=== PATIENT | female | born 1955 | race Hispanic/Latino ===

== ENCOUNTER 2017-11-10 10:29 | Observation (INO) | payer MEDICARE ==
[~2017-11-10] VITALS: Ht 157.5 cm; Wt 105.2 kg
[~2017-11-10 10:29] MED LIST: ALDACTONE100 MG PO; AMLODIPINE BESY10 MG PO; AMOX TR-K CLV1 EAC2 PO; CLARITIN PO; DEXILANT30 MG PO; FLONASE16 GM; GLIMEPIRIDE2 MG PO; HYDROCODONE-CH473 ML PO; INVEGA3 MG PO; LACTULOSE10 GM/15 M PO; LACTULOSE20 GM/30 M PO; LEVAQUIN500 MG PO; LEVEMIR 3M100 UNITS/; LEVOTHYROXINE137 MCG PO; LEVOTHYROXINE150 MCG PO; MUCINEX PO; NORCO 5-325 TA1 EACH PO; OMEPRAZOLE40 MG; OMEPRAZOLE40 MG PO; POLYETHYLENE GL17 GM PO; PROPRANOLOL HCL10 MG PO; PROVENTIL HFA6.7 GM; PROVENTIL HFA6.7 GM PO; SERTRALINE HCL50 MG PO; SPIRONOLACTONE100 MG PO; SYNTHROID125 MCG PO; TESSALON PERLE100 MG PO; XIFAXAN550 MG PO
[2017-11-10 11:28] LABS: BASOPHILS % 0.4 % (0.0-1.0); EOSINOPHILS # (AUTO) 0.5 (0.0-0.4); HEMATOCRIT 35.9 % (34.2-44.1); HEMOGLOBIN 11.9 g/dL (12.0-16.0); LYMPHOCYTES # (AUTO) 1.6 (1.0-3.2); LYMPHOCYTES % 34.8 % (18.0-39.1); MEAN CORPUSCULAR HEMOGLOBIN 33.2 pg (28-32); MEAN CORPUSCULAR HGB CONC 33.1 g/dL (31-35); MEAN CORPUSCULAR VOLUME 100.3 fL (81-99); MONOCYTES # (AUTO) 0.6 (0.2-0.8); MONOCYTES % 12.9 % (4.4-11.3); NEUTROPHILS # (AUTO) 1.9 (2.1-6.9); NEUTROPHILS % 41.7 % (38.7-80.0); PLATELET COUNT 65 x10e3/uL (140-360); RED BLOOD COUNT 3.58 x10e6/uL (3.6-5.1); RED CELL DISTRIBUTION WIDTH 15.9 % (11.7-14.4)
[2017-11-10 11:32] LABS: COLOR,URINE YELLOW (YELLOW); LEUKOCYTE ESTERASE ,URINE NEGATIVE (NEGATIVE); NITRITE,URINE NEGATIVE (NEGATIVE)
[2017-11-10 11:33] LABS: BILIRUBIN,URINE NEGATIVE (NEGATIVE); KETONES,URINE NEGATIVE (NEGATIVE); PROTEIN,URINE DIPSTICK NEGATIVE (NEGATIVE); URINE UROBILINOGEN 0.2 mg/dL (0.2 - 1)
[2017-11-10 11:35] LABS: CLARITY,URINE CLEAR (CLEAR)
--- NOTE | 2017-11-10 11:44 | Diagnostic Imaging Report ---
PROCEDURE: A single AP view of the chest. COMPARISON: Patients [facility], , CHEST SINGLE (PORTABLE), 01/10/2017, 12:33. INDICATIONS: SHORTNESS OF BREATH FINDINGS: Lines/tubes: None. Lungs: The lungs are well inflated and clear. There is no evidence of pneumonia or pulmonary edema. Pleura: There is no pleural effusion or pneumothorax. Heart and mediastinum: The heart and the mediastinum are unremarkable. Bones: No acute bony abnormality. IMPRESSION: 1. No acute cardiopulmonary disease. Kapil Pike M.D. Dictated by: Kapil Pike M.D. on 11/10/2017 at 11:47 Electronically approved by: Kapil Pike M.D. on 11/10/2017 at 11:47
[2017-11-10 11:45] LABS: BACTERIA,URINE RARE /HPF; EPITHELIAL CELLS,URINE MODERATE /LPF; WBC,URINE (MAN) 0-5 /HPF (0-5)
[2017-11-10 11:58] LABS: CREATINE KINASE MB 1.7 ng/mL (0-5.0)
[2017-11-10 11:59] LABS: ALBUMIN 2.5 g/dL (3.5-5.0); ALBUMIN/GLOBULIN RATIO 0.6 (0.8-2.0); ANION GAP 9.6 mmol/L (8-16); CALCIUM 8.8 mg/dL (8.4-10.2); POTASSIUM 4.6 mmol/L (3.5-5.1)
[2017-11-10] MEDS ORDERED: ONDANSETRON HCL INJ 2 MG/ML VIAL IV PRN (14:15)
[2017-11-10] MEDS ORDERED: SODIUM CHLORIDE 0.9% 1000ML 1,000 ML IV SCH (14:15)
[2017-11-10] MEDS ORDERED: DEXTROSE 50% SYRINGE 50 ML IV PRN (14:45)
[2017-11-10] MEDS ORDERED: XIFAXAN PO (14:59)
[2017-11-10 15:50] VITALS: BP 156/65
[2017-11-10 16:20] VITALS: BP 156/65
[2017-11-10] MEDS: PROPRANOLOL HCL 10 MG TAB PO SCH (16:48)
[2017-11-10] MEDS: LACTULOSE SYRUP 20 GM/30 ML UDC PO SCH (16:48)
[2017-11-10] MEDS: RIFAXIMIN 550 MG TABLET PO SCH (16:48)
[2017-11-10] MEDS: FUROSEMIDE 40 MG TAB PO SCH (16:48)
[2017-11-10] MEDS: INSULIN REGULAR, HUMAN 100 UNIT/1 ML 3ML VIAL SQ SCH (16:48)
[2017-11-10] MEDS ORDERED: PROPRANOLOL HCL 40 MG TAB PO SCH (17:00)
[2017-11-10 20:00] VITALS: BP 146/66
[2017-11-11] MEDS: LACTULOSE SYRUP 20 GM/30 ML UDC PO SCH ×3 (01:22→12:01)
[2017-11-11] MEDS: INSULIN REGULAR, HUMAN 100 UNIT/1 ML 3ML VIAL SQ SCH ×3 (04:07→12:05)
[2017-11-11 04:59] VITALS: BP 129/60
[2017-11-11] MEDS ORDERED: LEVOTHYROXINE SODIUM 125 MCG TAB PO SCH ×2 (06:00→09:00)
[2017-11-11 06:10] LABS: BASOPHILS % 0.4 % (0.0-1.0); EOSINOPHILS # (AUTO) 0.2 (0.0-0.4); EOSINOPHILS % 3.5 % (0.0-6.0); HEMATOCRIT 38.1 % (34.2-44.1); HEMOGLOBIN 12.8 g/dL (12.0-16.0); LYMPHOCYTES # (AUTO) 1.2 (1.0-3.2); LYMPHOCYTES % 24.8 % (18.0-39.1); MEAN CORPUSCULAR HEMOGLOBIN 33.6 pg (28-32); MEAN CORPUSCULAR HGB CONC 33.6 g/dL (31-35); MONOCYTES # (AUTO) 0.3 (0.2-0.8); MONOCYTES % 6.9 % (4.4-11.3); NEUTROPHILS # (AUTO) 3.1 (2.1-6.9); PLATELET COUNT 71 x10e3/uL (140-360); RED BLOOD COUNT 3.81 x10e6/uL (3.6-5.1); RED CELL DISTRIBUTION WIDTH 15.3 % (11.7-14.4)
[2017-11-11 06:31] LABS: INR 1.79; PROTHROMBIN TIME 19.5 seconds (11.9-14.5)
[2017-11-11 06:35] LABS: CALCIUM 9.2 mg/dL (8.4-10.2)
[2017-11-11 08:04] VITALS: BP 152/78
[2017-11-11] MEDS: PROPRANOLOL HCL 10 MG TAB PO SCH (08:37)
[2017-11-11] MEDS: FUROSEMIDE 40 MG TAB PO SCH (08:37)
[2017-11-11] MEDS: RIFAXIMIN 550 MG TABLET PO SCH (08:37)
[2017-11-11] MEDS ORDERED: PANTOPRAZOLE SOD 40 MG TABEC PO SCH (09:00)
[2017-11-11] MEDS ORDERED: SPIRONOLACTONE 25 MG TAB PO SCH (09:00)
[2017-11-11] MEDS ORDERED: METFORMIN HCL500 MG PO (13:11)
[2017-11-11] MEDS ORDERED: LASIX40 MG PO (13:12)
[2017-11-11] MEDS ORDERED: XIFAXAN550 MG PO (13:12)
--- NOTE | 2017-11-11 13:37 | Discharge Summary ---
PRIMARY CARE DOCTOR: Dr. Maya Dorman with [facility]. FINAL DIAGNOSIS: Hepatic encephalopathy. SECONDARY DIAGNOSES 1. Hepatitis C cirrhosis. 2. Uncontrolled diabetes. 3. Hypothyroidism. 4. 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 BOX OFFICE MANAGER: None. PROCEDURES/STUDIES PERFORMED: None. HISTORY: Per H and P. HOSPITAL COURSE: The patient was admitted. She has not had any bowel movement for a few days. We increased the lactulose, and she had a bowel movement. Her ammonia level came down. Clinically, she is completely alert and oriented. The patient was instructed, along with her , that she has to have 2 soft bowel movements a day by increasing or decreasing lactulose frequency. As far as her swelling, I have added Lasix to her Aldactone. There is a questionable renal insufficiency history due to Lasix. I will have her follow up with her PCP in 1 week. As far as her diabetes, given her morbid obesity, I will try to use metformin instead of Amaryl. Her TSH is normal. The patient was seen and examined today. CONDITION ON DISCHARGE: Stable. DISCHARGE MEDICATIONS: Please see medication reconciliation form. STORMY RYAN M.D. Job#: [id number] cc:MAYA DORMAN MD
== END 2017-11-11 13:30 | disposition home or self-care (01) ==
LOC: ER 10:29 → INTOOBSV 14:15 → ERHOLD 14:15 → MED/SURG 15:25
PROVIDERS: ADMIT Internal Medicine; ATTEND Internal Medicine
DX: K72.90 Hepatic failure, unspecified without coma (principal); D69.6 Thrombocytopenia, unspecified; E11.65 Type 2 diabetes mellitus with hyperglycemia; B19.20 Unspecified viral hepatitis C without hepatic coma; E03.9 Hypothyroidism, unspecified; E66.01 Morbid (severe) obesity due to excess calories; Z68.41 Body mass index [BMI] 40.0-44.9, adult
CPT/HCPCS: 36415 ×2; 71045; 80048; 80053; 81001; 82140 ×2; 82550; 82553; 82948; 83690; 84443; 84484; 85025 ×2; 85610; 93005; 99284; G0378 ×2; J7030; S0164

== ENCOUNTER 2017-11-29 03:11 | Inpatient (IN) | payer MEDICARE ==
[~2017-11-29] VITALS: Ht 152.4 cm; Wt 104.9 kg
[2017-11-29] MEDS: LACTULOSE SYRUP 20 GM/30 ML UDC PO SCH ×5 (01:45→22:20)
[~2017-11-29 03:11] MED LIST changes: +LASIX40 MG PO; +METFORMIN HCL500 MG PO; +XIFAXAN PO
[2017-11-29] MEDS ORDERED: SODIUM CHLORIDE 0.9% 1000ML 1,000 ML IV ONE (04:00)
[2017-11-29 04:30] LABS: BASOPHILS # (AUTO) 0.1 (0.0-0.1); BASOPHILS % 0.8 % (0.0-1.0); EOSINOPHILS # (AUTO) 0.3 (0.0-0.4); EOSINOPHILS % 5.2 % (0.0-6.0); HEMATOCRIT 39.1 % (34.2-44.1); HEMOGLOBIN 13.2 g/dL (12.0-16.0); LYMPHOCYTES # (AUTO) 1.8 (1.0-3.2); LYMPHOCYTES % 28.8 % (18.0-39.1); MEAN CORPUSCULAR HEMOGLOBIN 32.9 pg (28-32); MEAN CORPUSCULAR HGB CONC 33.8 g/dL (31-35); MEAN CORPUSCULAR VOLUME 97.5 fL (81-99); MONOCYTES # (AUTO) 0.7 (0.2-0.8); MONOCYTES % 10.3 % (4.4-11.3); NEUTROPHILS # (AUTO) 3.5 (2.1-6.9); NEUTROPHILS % 54.7 % (38.7-80.0); PLATELET COUNT 100 x10e3/uL (140-360); RED BLOOD COUNT 4.01 x10e6/uL (3.6-5.1); RED CELL DISTRIBUTION WIDTH 14.6 % (11.7-14.4)
[2017-11-29 04:47] LABS: ALBUMIN 2.8 g/dL (3.5-5.0); ALBUMIN/GLOBULIN RATIO 0.6 (0.8-2.0); ANION GAP 13.6 mmol/L (8-16); CALCIUM 9.8 mg/dL (8.4-10.2); CREATININE, SERUM 1.47 mg/dL (0.57-1.11); POTASSIUM 4.6 mmol/L (3.5-5.1)
[2017-11-29 04:49] LABS: BILIRUBIN,URINE 1+ (NEGATIVE); CLARITY,URINE SL CLOUDY (CLEAR); COLOR,URINE YELLOW (YELLOW); KETONES,URINE NEGATIVE (NEGATIVE); NITRITE,URINE NEGATIVE (NEGATIVE); PROTEIN,URINE DIPSTICK NEGATIVE (NEGATIVE); URINE UROBILINOGEN 0.2 mg/dL (0.2 - 1)
[2017-11-29 04:50] LABS: LEUKOCYTE ESTERASE ,URINE TRACE (NEGATIVE)
[2017-11-29 04:51] LABS: BACTERIA,URINE MODERATE /HPF; CALCIUM OXALATE CRYSTALS,UR FEW (FEW); EPITHELIAL CELLS,URINE MANY /LPF; RBC,URINE 0-5 /HPF (0-5)
--- NOTE | 2017-11-29 05:21 | Diagnostic Imaging Report ---
EXAM: CHEST SINGLE (PORTABLE), AP 1 view INDICATION: History of asthma, cough COMPARISON: AP view of the chest November 10, 2017 FINDINGS: LINES/TUBES: None LUNGS: No consolidations or edema. PLEURA: No effusions or pneumothorax. HEART AND MEDIASTINUM: Normal size and contour. BONES AND SOFT TISSUES: No acute findings. IMPRESSION: No acute thoracic abnormality. Signed by: Dr. Yelena Arelalno M.D. on 11/29/2017 5:17 AM
[2017-11-29] MEDS ORDERED: ONDANSETRON HCL INJ 2 MG/ML VIAL IV PRN (05:45)
[2017-11-29] MEDS ORDERED: ALBUTEROL/IPRATROPIUM 3 ML NEB NEB ONE (05:45)
[2017-11-29] MEDS ORDERED: DEXTROSE 50% SYRINGE 50 ML IV PRN (05:45)
[2017-11-29] MEDS: INSULIN REGULAR, HUMAN 100 UNIT/1 ML 3ML VIAL SQ SCH ×4 (07:30→22:21)
[2017-11-29 08:11] VITALS: BP 147/64
[2017-11-29 08:15] VITALS: BP 138/60
[2017-11-29] MEDS: ALBUTEROL/IPRATROPIUM 3 ML NEB NEB PRN ×2 (09:22→19:40)
[2017-11-29 09:23] VITALS: BP 147/64
[2017-11-29] MEDS: SODIUM CHLORIDE 0.9% 1000ML 1,000 ML IV SCH ×2 (09:55→18:26)
[2017-11-29] MEDS ORDERED: ZINC SULFATE220 MG PO (10:13)
[2017-11-29] MEDS ORDERED: MAGNESIUM OXID400 MG PO (10:13)
[2017-11-29] MEDS ORDERED: VITAMIN D1000 UNI1 PO (10:16)
[2017-11-29] MEDS ORDERED: LANTUS 3ML100 UNITS/ SQ (11:44)
[2017-11-29] MEDS ORDERED: NOVOLOG100 UNIT/1 SQ (11:44)
[2017-11-29 13:14] VITALS: BP 112/53
[2017-11-29] MEDS ORDERED: DIATRIZOATE MEGL/DIATRIZOA SOD 30 ML BTL PO ONE (14:07)
[2017-11-29 16:29] VITALS: BP 94/51
[2017-11-29] MEDS: RIFAXIMIN 550 MG TABLET PO SCH (17:00)
--- NOTE | 2017-11-29 19:26 | Diagnostic Imaging Report ---
EXAM: CT ABDOMEN AND PELVIS without IV CONTRAST INDICATION: Abdominal pain, cirrhosis COMPARISON: CT of the abdomen and pelvis March 03, 2017 TECHNIQUE: The abdomen and pelvis were scanned using a multidetector helical scanner. Coronal and sagittal reformations were obtained. Routine protocol performed. IV Contrast: None Oral Contrast: Gastrografin CTDIvol has been reviewed. It is below the limits set by the Radiation Protocol Committee (RPC). FINDINGS: LOWER THORAX: No consolidations LIVER: No masses. Nodular liver contour. BILIARY: Cholecystectomy. No abnormal ductal dilation. SPLEEN: The spleen is at the upper limits of normal in size. PANCREAS: No masses ADRENALS: No nodules RIGHT KIDNEY: No nephroureterolithiasis or hydronephrosis. LEFT KIDNEY: Punctate nonobstructing stone in the interpolar region of the left kidney. GI TRACT: No wall thickening or obstruction. VESSELS: Mild atherosclerotic changes of the abdominal aorta without aneurysm. Recanalization of the periumbilical vein and splenic varices. PERITONEUM/RETROPERITONEUM: No free air or fluid LYMPH NODES: No lymphadenopathy REPRODUCTIVE ORGANS: Normal BLADDER: Normal SOFT TISSUES: Normal BONES: No suspicious bone lesions. IMPRESSION: Cirrhosis with evidence of portal hypertension. No abdominal ascites. No significant interval change from prior exam. Signed by: Dr. Yelena Arellano M.D. on 11/29/2017 7:23 PM
[2017-11-29 21:00] VITALS: BP 109/50
[2017-11-30] VITALS (8 sets, daily range): BP systolic 99–123; BP diastolic 52–71
[2017-11-30] MEDS: LACTULOSE SYRUP 20 GM/30 ML UDC PO SCH ×6 (01:45→21:22)
[2017-11-30 05:49] LABS: BASOPHILS % 0.5 % (0.0-1.0); EOSINOPHILS # (AUTO) 0.4 (0.0-0.4); HEMATOCRIT 33.4 % (34.2-44.1); HEMOGLOBIN 11.1 g/dL (12.0-16.0); LYMPHOCYTES # (AUTO) 1.7 (1.0-3.2); LYMPHOCYTES % 38.9 % (18.0-39.1); MEAN CORPUSCULAR HEMOGLOBIN 33.1 pg (28-32); MEAN CORPUSCULAR HGB CONC 33.2 g/dL (31-35); MEAN CORPUSCULAR VOLUME 99.7 fL (81-99); MONOCYTES # (AUTO) 0.6 (0.2-0.8); MONOCYTES % 13.1 % (4.4-11.3); NEUTROPHILS # (AUTO) 1.7 (2.1-6.9); NEUTROPHILS % 38.3 % (38.7-80.0); PLATELET COUNT 62 x10e3/uL (140-360); RED BLOOD COUNT 3.35 x10e6/uL (3.6-5.1); RED CELL DISTRIBUTION WIDTH 14.5 % (11.7-14.4)
[2017-11-30] MEDS: LEVOTHYROXINE SODIUM 125 MCG TAB PO SCH (05:57)
[2017-11-30 06:18] LABS: ALBUMIN 2.3 g/dL (3.5-5.0); ALBUMIN/GLOBULIN RATIO 0.7 (0.8-2.0); ANION GAP 9.2 mmol/L (8-16); CALCIUM 9.1 mg/dL (8.4-10.2); CREATININE, SERUM 1.24 mg/dL (0.57-1.11); POTASSIUM 4.2 mmol/L (3.5-5.1)
[2017-11-30] MEDS: INSULIN REGULAR, HUMAN 100 UNIT/1 ML 3ML VIAL SQ SCH ×4 (07:30→20:45)
[2017-11-30] MEDS: RIFAXIMIN 550 MG TABLET PO SCH ×2 (08:31→17:37)
[2017-11-30] MEDS: PANTOPRAZOLE SOD 40 MG TABEC PO SCH (08:31)
[2017-11-30] MEDS: ALBUTEROL/IPRATROPIUM 3 ML NEB NEB PRN (20:20)
[2017-12-01] MEDS: ALBUTEROL/IPRATROPIUM 3 ML NEB NEB PRN ×2 (00:45→07:12)
[2017-12-01] MEDS: LACTULOSE SYRUP 20 GM/30 ML UDC PO SCH ×3 (02:25→09:33)
[2017-12-01 04:00] VITALS: BP 100/54
[2017-12-01 05:16] LABS: BASOPHILS % 0.4 % (0.0-1.0); EOSINOPHILS # (AUTO) 0.3 (0.0-0.4); EOSINOPHILS % 6.9 % (0.0-6.0); HEMATOCRIT 35.6 % (34.2-44.1); HEMOGLOBIN 11.7 g/dL (12.0-16.0); LYMPHOCYTES # (AUTO) 1.7 (1.0-3.2); LYMPHOCYTES % 36.1 % (18.0-39.1); MEAN CORPUSCULAR HEMOGLOBIN 33.3 pg (28-32); MEAN CORPUSCULAR HGB CONC 32.9 g/dL (31-35); MEAN CORPUSCULAR VOLUME 101.4 fL (81-99); MONOCYTES # (AUTO) 0.5 (0.2-0.8); MONOCYTES % 10.4 % (4.4-11.3); NEUTROPHILS # (AUTO) 2.1 (2.1-6.9); PLATELET COUNT 65 x10e3/uL (140-360); RED BLOOD COUNT 3.51 x10e6/uL (3.6-5.1); RED CELL DISTRIBUTION WIDTH 14.6 % (11.7-14.4)
[2017-12-01] MEDS: LEVOTHYROXINE SODIUM 125 MCG TAB PO SCH (05:22)
[2017-12-01 05:50] LABS: ALBUMIN 2.5 g/dL (3.5-5.0); ANION GAP 7.9 mmol/L (8-16); BILIRUBIN,DIRECT 0.9 mg/dL (0.0-0.5); CALCIUM 9.4 mg/dL (8.4-10.2); CREATININE, SERUM 1.27 mg/dL (0.57-1.11); POTASSIUM 3.9 mmol/L (3.5-5.1)
[2017-12-01] MEDS: PANTOPRAZOLE SOD 40 MG TABEC PO SCH (07:30)
[2017-12-01] MEDS: INSULIN REGULAR, HUMAN 100 UNIT/1 ML 3ML VIAL SQ SCH ×2 (07:30→11:30)
[2017-12-01 08:00] VITALS: BP 100/54
[2017-12-01] MEDS: RIFAXIMIN 550 MG TABLET PO SCH (09:00)
[2017-12-01 09:38] VITALS: BP 113/56
[2017-12-01] MEDS ORDERED: VENTOLIN HFA18 GM INH (11:06)
[2017-12-01 12:48] VITALS: BP 125/77
--- NOTE | 2017-12-01 16:12 | Discharge Summary ---
PRIMARY CARE DOCTOR: Maya Dorman MD, with [facility]. FINAL DIAGNOSIS: Hepatic encephalopathy. SECONDARY DIAGNOSES 1. Mild acute kidney injury, resolving. 2. Cirrhosis with coagulopathy, stable. 3. Hepatitis C. 4. Diabetes. 5. Asthma. 6. Hypothyroidism. 7. Morbid obesity. HAND CROCHETER: None. PROCEDURES/STUDIES PERFORMED: CT of the abdomen and pelvis was benign. HISTORY: Per H and P. HOSPITAL COURSE: The patient was admitted. It is unclear at this time why her ammonia level went up to 283 despite the fact that she was already taking lactulose and rifaximin. Either way, the patient was put on lactulose every 4 hours. On the day of discharge, her ammonia level was normal now. The patient also has some mild acute kidney injury due to diarrhea/dehydration. The patient was given a little IV fluids, which helped. The patient was complaining of generalized abdominal discomfort. Abdominal CT was done, which was unremarkable. It also did not show any ascites. I have instructed the patient and her to talk to her primary care doctor in terms of getting financial assistance for rifaximin. The patient was seen and examined today. CONDITION ON DISCHARGE: Stable. DISCHARGE MEDICATIONS: Please see medication reconciliation form. STORMY RYAN M.D. Job#: [id number] cc:MAYA DORMAN MD
== END 2017-12-01 12:56 | disposition home or self-care (01) | DRG 433 ==
LOC: ER 03:11 → ERHOLD 05:44 → MED/SURG2 06:49
PROVIDERS: ADMIT Internal Medicine; ATTEND Internal Medicine
DX: K74.60 Unspecified cirrhosis of liver (principal); N17.9 Acute kidney failure, unspecified; D68.4 Acquired coagulation factor deficiency; Z68.42 Body mass index [BMI] 45.0-49.9, adult; B19.20 Unspecified viral hepatitis C without hepatic coma; E11.65 Type 2 diabetes mellitus with hyperglycemia; E03.9 Hypothyroidism, unspecified; J45.909 Unspecified asthma, uncomplicated; E86.0 Dehydration; R19.7 Diarrhea, unspecified; E66.01 Morbid (severe) obesity due to excess calories; Z86.73 Personal history of transient ischemic attack (TIA), and cerebral infarction without residual deficits; I10 Essential (primary) hypertension; Z79.84 Long term (current) use of oral hypoglycemic drugs
CPT/HCPCS: 36415; 71045; 74176; 80048; 80053; 80076; 81001; 82140; 82948; 85025; 93005; 94640; 96361; 99284; J7030

== ENCOUNTER 2018-07-10 11:21 | Emergency (ER) | payer MEDICARE ==
[~2018-07-10] VITALS: Ht 154.9 cm; Wt 63.5 kg
[~2018-07-10 11:21] MED LIST changes: +LANTUS 3ML100 UNITS/ SQ; +MAGNESIUM OXID400 MG PO; +NOVOLOG100 UNIT/1 SQ; +VENTOLIN HFA18 GM INH; +VITAMIN D1000 UNI1 PO; +ZINC SULFATE220 MG PO
--- OUTSIDE RECORDS SUMMARY | 2018-07-10 11:24 | XMS REPORT | Clinical Summary ---
Author Author [facility]AN[facility]at[facility] Address Unknown Phone Unavailable Care Team Providers Care Agricultural Research Engineer Name Role Phone Andreas Rooney MD PCP Allergies No Known Allergies Medications End Date Status Medication Sig Dispensed Refills Start Date Active spironolactone Take 50 mg by 0 (ALDACTONE) 100 MG tablet mouth daily . 6 Active glimepiride (AMARYL) 1 MG 2 mg every 0 tablet morning 7 before breakfast . Active lactulose (CHRONULAC) 10 Take 20 g by 0 gram/15 mL solution mouth 3 7 (three) times daily . Active levothyroxine (SYNTHROID, Take 125 mcg 0 LEVOTHROID) 125 MCG by mouth. 6 tablet Active ALBUTEROL SULFATE Inhale 2 0 (PROVENTIL HFA INHL) puffs by mouth via inhaler 2 (two) times daily as needed. Active omeprazole (PRILOSEC) 40 Take 40 mg by 0 MG capsule mouth daily. Active polyethylene glycol Take 17 g by 0 (GLYCOLAX) 17 gram packet mouth daily. Active amLODIPine (NORVASC) 10 Take 10 mg by 0 MG tablet mouth daily. Active zinc gluconate 50 mg Take 50 mg by 0 tablet mouth. Active POTASSIUM CHLORIDE ORAL Take by 0 mouth. 08/20/2017 propranolol (INDERAL) 10 Take 1 tablet 60 tablet 11 MG tablet (10 mg total) 7 by mouth 2 (two) times daily. 04/02/2018 Discontinued ondansetron (ZOFRAN) 8 MG Take by mouth 0 tablet every 8 (eight) hours as needed for Nausea. Active Problems Problem Noted Date Pre-transplant evaluation for liver transplant 04/30/2018 Last Assessment & Plan: She is an acceptable candidate for liver transplant pending further imaging/testing and official review at [facility]. Chronic hepatitis C without hepatic coma 10/27/2017 Cirrhosis of liver with ascites, unspecified hepatic cirrhosis type 10/27/2017 Last Assessment & Plan: Cirrhosis secondary to Hep C. Preoperative cardiovascular examination 04/04/2017 Ascites 07/25/2016 Overview: Controlled with spironolactone 100 mg daily. Not requiring taps Hepatic encephalopathy 07/25/2016 Overview: L ast Assessment & Plan: She takes lactulose TID, not currently encephalopathic Esophageal varices in cirrhosis 07/25/2016 Last Assessment & Plan: Has had EGD with varices seen, no banding done at the time. Being referred to GI for repeat EGD for surveillance Morbidly obese 07/25/2016 Last Assessment & Plan: BMI is 44. She will meet with our transplant assurance associate. Encourage decreased oral intake and exercise as tolerated. Cirrhosis 06/17/2016 Last Assessment & Plan: Meld 17 with portal HTN and ascites, candidate for liver transplant listing Portal hypertension 06/17/2016 Last Assessment & Plan: Portal hypertension with evidence by encephalopathy, varices, and ascites. HCC surveillance 06/17/2016 Screening for immunity 06/17/2016 Chronic portal vein thrombosis 06/17/2016 Metabolic syndrome 06/17/2016 Encounters Care Team Description Date Type Specialty Alyson Wilson Appointment (LVM asking pt to return my call.) 06/30/2018 Telephone Transplant Hepatology Umu Haas, IZZY Completion of transplant evaluation 06/22/2018 Telephone Transplant Hepatology Pradeep Knight MD Provider, [facility] Registry Generic 05/01/2018 UNOS Charge Transplant Hepatology Visit Pre-transplant evaluation for liver transplant 04/30/2018 Office Visit Lab Polo Gabriel MD Goss, John Alan, MD Portal hypertension; Pre-transplant evaluation for liver transplant; Morbidly obese (HCC); Cirrhosis of liver with ascites, unspecified hepatic cirrhosis type (HCC) 04/30/2018 Follow-Up Transplant Hepatology Polo Gabriel MD Springer, Laura L, LCSW 04/30/2018 Social Work Transplant Hepatology Polo Gabriel MD Cook, Amy 04/30/2018 Evaluation Transplant Hepatology Nikki Chavez 04/30/2018 Documentation Transplant Hepatology Linda Ching RN 04/30/2018 Documentation Transplant Hepatology Mando Sampson Walter 04/30/2018 Documentation Transplant Hepatology Alyson Wilson Liver Transplant Pre-evaluation (Appt confirmed.) 04/29/2018 Telephone Transplant Hepatology Alyson Wilson 04/29/2018 Abstract Transplant Hepatology Umu Haas RN Pre-transplant evaluation for liver transplant (Primary Dx) 04/17/2018 Orders Only Transplant Hepatology Alyson Wilson Liver Transplant Pre-evaluation (Spoke with pt, liver txp eval scheduled. Itinerary mailed to pt.) 04/14/2018 Telephone Transplant Hepatology Pradeep Knight MD 04/09/2018 Abstract Transplant Hepatology Fantasma Pina NP Results 04/08/2018 Telephone Hepatology Fantasma Pina NP 04/07/2018 Documentation Hepatology Polo Gabriel MD Fuller, Arian [place], NP Cirrhosis of liver with ascites, unspecified hepatic cirrhosis type (HCC) (Primary Dx); HCC surveillance; Portal hypertension; Esophageal varices in cirrhosis (HCC) 04/02/2018 Office Visit Hepatology Vish Kincaid, CONSTANTINO 03/15/2018 Documentation Hepatology Umu Haas RN Hepatology appointment 12/17/2017 Telephone Transplant Hepatology Umu Haas RN 12/02/2017 Documentation Transplant Hepatology Adriano Feliciano Appointment 11/11/2017 Telephone Transplant Hepatology Alyson Wilson Appointment (Spoke with pt, appt date and time given. Itinerary mailed to pt.) 11/11/2017 Telephone Transplant Hepatology Umu Haas RN Neurology clearance 11/07/2017 Telephone Transplant Hepatology Umu Haas RN Screening for malignant neoplasm (Primary Dx); Encounter for pre-transplant evaluation for liver transplant 10/27/2017 Orders Only Transplant Hepatology Umu Haas RN Neurology clearance 10/24/2017 Telephone Transplant Hepatology Carolyn Russell MA 10/13/2017 Abstract Hepatology Aileen Santos RN other 10/10/2017 Telephone Hepatology Polo Gabriel MD 10/09/2017 Orders Only Hepatology Oz Griffiths MD Sussman, Norman Leslie, MD Other cirrhosis of liver (HCC) (Primary Dx); Hypothyroidism, unspecified type; Hepatic encephalopathy (HCC); Esophageal varices in cirrhosis (HCC); Morbidly obese (HCC); Chronic portal vein thrombosis 10/07/2017 Follow-Up Transplant Hepatology Fantasma Pina NP results and appt 10/01/2017 Telephone Hepatology Fantasma Pina NP Results 10/01/2017 Telephone Hepatology Polo Gabriel MD Other cirrhosis of liver (HCC); Cancer screening 09/15/2017 Orders Only Transplant Hepatology Andree Hadley RN Other cirrhosis of liver (HCC) (Primary Dx); Cancer screening 08/15/2017 Orders Only Hepatology Alyson Wilson Appointment (Spoke with pt, appt date and time given. Itinerary mailed to pt.) 08/15/2017 Telephone Transplant Hepatology after 07/09/2017 Social History Date Tobacco Use Types Packs/Day Years Used Former Smoker Smokeless Tobacco: Never Used Alcohol Use Drinks/Week oz/Week Comments No Sex Assigned at Date Recorded Not on file Industry Job Start Date Occupation Not on file Not on file Not on file Travel End Travel History Travel Start No recent travel history available. Last Filed Vital Signs Time Taken Vital Sign Reading 04/30/2018 6:43 AM ASTROBIOLOGIST Blood Pressure 121/68 04/30/2018 6:43 AM ASTROBIOLOGIST Pulse 81 04/30/2018 6:43 AM ASTROBIOLOGIST Temperature 36.7 C (98 F) 04/02/2018 1:02 PM ASTROBIOLOGIST Respiratory Rate 16 04/30/2018 6:43 AM ASTROBIOLOGIST Oxygen Saturation 100% 04/30/2018 1:46 PM ASTROBIOLOGIST Inhaled Oxygen 21% Concentration 04/30/2018 1:47 PM ASTROBIOLOGIST Weight 107.1 kg (236 lb 1.8 oz) 04/30/2018 1:47 PM ASTROBIOLOGIST Height 155.5 cm (5' 1.22") 04/30/2018 1:47 PM ASTROBIOLOGIST Body Mass Index 44.29 Plan of Treatment Care Team Description Date Type Specialty Polo Gabriel MD [address] [address] [facility] Hepatology Clinic A 09/24/2018 Office Visit Hepatology Health Maintenance Due Date Last Done Comments INFLUENZA VACCINE 02/23/2018 Procedures Comments Procedure Name Priority Date/Time Associated Diagnosis BLOOD GAS, ARTERIAL Routine 04/30/2018 Pre-transplant evaluation 1:46 PM ASTROBIOLOGIST for liver transplant CBC W/PLT COUNT & AUTO Routine 04/02/2018 Cirrhosis of liver with DIFFERENTIAL 4:46 PM ASTROBIOLOGIST ascites, unspecified hepatic cirrhosis type (HCC) HCC surveillance ALPHA FETOPROTEIN (AFP), Routine 04/02/2018 Cirrhosis of liver with TUMOR MARKER 4:46 PM ASTROBIOLOGIST ascites, unspecified hepatic cirrhosis type (HCC) HCC surveillance PROTHROMBIN TIME/INR Routine 04/02/2018 Cirrhosis of liver with 4:46 PM ASTROBIOLOGIST ascites, unspecified hepatic cirrhosis type (HCC) HCC surveillance CBC W/PLT COUNT & AUTO Routine 04/02/2018 Cirrhosis of liver with DIFFERENTIAL 4:46 PM ASTROBIOLOGIST ascites, unspecified hepatic cirrhosis type (HCC) HCC surveillance HEPATIC FUNCTION PANEL Routine 04/02/2018 Cirrhosis of liver with 4:46 PM ASTROBIOLOGIST ascites, unspecified hepatic cirrhosis type (HCC) HCC surveillance BASIC METABOLIC PANEL (7) Routine 04/02/2018 Cirrhosis of liver with 4:46 PM ASTROBIOLOGIST ascites, unspecified hepatic cirrhosis type (HCC) HCC surveillance ANTINUCLEAR ANTIBODIES Routine 10/09/2017 DIRECT 2:20 PM CDT HEP B SURFACE AB Routine 10/09/2017 2:20 PM CDT HCV QUANTASURE Routine 10/09/2017 PLUS(NON-GRAPH) 2:20 PM CDT T3 Routine 10/09/2017 2:20 PM CDT T4 Routine 10/09/2017 2:20 PM CDT TSH Routine 10/09/2017 2:20 PM CDT PROTHROMBIN TIME/INR Routine 10/09/2017 2:20 PM CDT HEPATIC FUNCTION PANEL Routine 10/09/2017 2:20 PM CDT COMPREHENSIVE METABOLIC Routine 10/09/2017 PANEL 2:20 PM CDT CBC W/PLT COUNT & AUTO Routine 10/09/2017 DIFFERENTIAL 2:20 PM CDT HEPATITIS B E ANTIGEN Routine 10/09/2017 2:20 PM CDT ALPHA FETOPROTEIN (AFP), Routine 10/09/2017 TUMOR MARKER 2:20 PM CDT CERULOPLASMIN Routine 10/09/2017 2:20 PM CDT HEPATITIS B E ANTIBODY Routine 10/09/2017 2:20 PM CDT HBV RT PCR, QUANT (GRAPH) Routine 10/09/2017 2:20 PM CDT CBC W/PLT COUNT & AUTO Routine 09/15/2017 Other cirrhosis of liver DIFFERENTIAL 10:42 AM CDT (HCC) ALPHA FETOPROTEIN (AFP), Routine 09/15/2017 Cancer screening TUMOR MARKER 10:42 AM CDT PROTHROMBIN TIME/INR Routine 09/15/2017 Other cirrhosis of liver 10:42 AM CDT (HCC) CBC W/PLT COUNT & AUTO Routine 09/15/2017 Other cirrhosis of liver DIFFERENTIAL 10:42 AM CDT (HCC) HEPATIC FUNCTION PANEL Routine 09/15/2017 Other cirrhosis of liver 10:42 AM CDT (HCC) BASIC METABOLIC PANEL (7) Routine 09/15/2017 Other cirrhosis of liver 10:42 AM CDT (HCC) after 07/09/2017 Results * Blood gas, arterial (04/30/2018 1:46 PM ASTROBIOLOGIST) pH, Arterial 7.43 7.35 - 7.45 [facility] pCO2, Arterial 36 35 - 45 mmHg [facility] pO2, Arterial 89 80 - 90 mmHg [facility] O2 Sat, Arterial 97.1 (H) 96.0 - 97.0 % [facility] HCO3, Arterial 23 21 - 29 mmol/L [facility] Base Excess, Arterial -1.0 -2.0 - 3.0 mmol/L [facility] Patient Temperature 37.0 C [facility] FIO2 21.0 % [facility] Specimen Blood, Arterial Performing Organization Address City/State/Zipcode Phone Number [facility] [address] [place] [address] MED[facility]ENTER * CBC with platelet count + automated diff (04/02/2018 4:46 PM ASTROBIOLOGIST) Only the most recent of 2 results within the time period is included. WBC 5.3 3.5 - 10.5 K/L [facility] RBC 4.00 3.93 - 5.22 M/L [facility] Hemoglobin 12.7 11.2 - 15.7 GM/DL [facility] Hematocrit 39.6 34.1 - 44.9 % [facility] MCV 99.0 (H) 79.4 - 94.8 fL [facility] MCH 31.8 25.6 - 32.2 pg [facility] MCHC 32.1 (L) 32.2 - 35.5 GM/DL [facility] RDW 14.8 (H) 11.7 - 14.4 % [facility] Platelets 68 (L) 150 - 450 K/CU MM [facility] MPV 11.2 9.4 - 12.3 fL [facility] nRBC 0 0 - 0 /100 WBC [facility] % Neutros 45 % [facility] % Lymphs 36 % [facility] % Monos 10 % [facility] % Eos 8 % [facility] % Baso 0 % [facility] # Neutros 2.34 1.56 - 6.13 K/L [facility] # Lymphs 1.91 1.18 - 3.74 K/L [facility] # Monos 0.53 (H) 0.24 - 0.36 K/L [facility] # Eos 0.44 (H) 0.04 - 0.36 K/L [facility] # Baso 0.02 0.01 - 0.08 K/L [facility] Immature 0 0 - 1 % [facility] Granulocytes[facility] Specimen Blood Performing Organization Address City/[facility]/[place] [address] [facility] * Alpha fetoprotein (AFP), tumor marker (04/02/2018 4:46 PM ASTROBIOLOGIST) Only the most recent of 3 results within the time period is included. Alpha-Fetoprotein 3.0 <10.0 ng/mL [facility] Specimen Blood Performing Organization Address City/[facility] [place] [address] [facility] * Pro-time/INR (04/02/2018 4:46 PM ASTROBIOLOGIST) Only the most recent of 3 results within the time period is included. Protime 17.8 (H) 11.7 - 14.7 seconds [facility] INR 1.5 <=5.9 [facility] Specimen Blood Narrative Performed At RECOMMENDED COUMADIN/WARFARIN INR THERAPY RANGES [facility] STANDARD DOSE: 2.0 - 3.0 Includes: PROPHYLAXIS for venous thrombosis, [facility] systemic embolization; TREATMENT for venous thrombosis and/or pulmonary embolus. HIGH RISK: Target INR is 2.5-3.5 for patients with mechanical heart valves. Performing Organization Address City/State/[facility] Cent[facility]ode Phone Number [facility] [address] [place], [place] [id number] [facility] * Hepatic function panel (04/02/2018 4:46 PM ASTROBIOLOGIST) Only the most recent of 3 results within the time period is included. Protein, Total 7.0Comment: Specimen slightly 6.0 - 8.3 gm/dL [facility] Albumin 2.9 (L)Comment: Specimen 3.5 - 5.0 g/dL [facility] slightly hemolyzed [facility] Total Bilirubin 3.6 (H)Comment: Specimen 0.2 - 1.2 mg/dL [facility] Bilirubin, Direct 1.2 (H)Comment: Specimen 0.1 - 0.5 mg/dL [facility] Alkaline Phosphatase 304 (H) 40 - 150 U/L [facility] AST 33Comment: Specimen slightly 5 - 34 U/L [facility] ALT 23Comment: Specimen slightly 6 - 55 U/L [facility] Specimen Blood Narrative Performed At Specimen slightly icteric [facility] Performing Organization Address City/State/Zipcode Phone Number [facility] [address] [place] [address] [facility] * Basic Metabolic Panel (04/02/2018 4:46 PM ASTROBIOLOGIST) Only the most recent of 2 results within the time period is included. Sodium 139 136 - 145 meq/L [facility] Potassium 4.4Comment: Specimen slightly 3.5 - 5.1 meq/L [facility] Chloride 108 (H) 98 - 107 meq/L [facility] CO2 24 22 - 29 meq/L [facility] BUN 10 7 - 21 mg/dL [facility] Creatinine 0.94Comment: Specimen slightly 0.57 - 1.25 mg/dL [facility] hemolyzed [facility] Glucose 302 (H) 70 - 105 mg/dL [facility] Calcium 9.4 8.4 - 10.2 mg/dL [facility] EGFR 60Comment: ESTIMATED GFR IS mL/min/1.73 sq m [facility] NOT ACCURATE CREATININE [facility] CLEARANCE IN PREDICTING GLOMERULAR FILTRATION RATE. ESTIMATED GFR IS NOT APPLICABLE FOR DIALYSIS PATIENTS. Specimen Blood Narrative Performed At Specimen slightly icteric [facility] Performing Organization Address City/[facility]/Zipcode Phone Number [facility] [address] [place] [address] [facility] * HBV RT PCR, Quant (Graph) (10/09/2017 2:20 PM CDT) HBV as IU/mL HBV DNA not detected IU/mL [facility] log10 HBV as IU/mL CANCELED log10 IU/mL [facility] Comment: Unable to calculate result since non-numeric result obtained for component test. Result canceled by the ancillary Test Information CommentComment: The reportable [facility] 1 range for this assay is 10 IU/mL to 1 billion IU/mL. Narrative Performed At Performed at: [facility] [address] [place], [id number] Sports Teacher: Mingo Marcelo MD, Phone:[phone] Performing Organization Address [facility] Centercode Phone Number [facility] * HEP B SURFACE AB (10/09/2017 2:20 PM CDT) Hep B S Ab Reactive [facility] Comment: No n Reactive: Inconsistent with immunity, less than 10 mIU/mL Re active: Consistent with immunity, grea ter than 9.9 mIU/mL Narrative Performed At Performed at: [facility] [address] [place], [id number] Sports Teacher: Nicholas Nuñez MD, Phone:[phone] Performing Organization Address City/[facility]/Zipcode Phone Number [facility] * HCV QUANTASURE PLUS(NON-GRAPH) (10/09/2017 2:20 PM CDT) Hepatitis C Quantitation HCV Not Detected IU/mL [facility] Test Information: CommentComment: The [facility] 1 quantitative range of this assay is 15 IU/mL to 100 million IU/mL. Narrative Performed At Performed at:[id number] Sports Teacher: Mingo Marcelo MD, Phone:[phone] Performing Organization Address City/[facility] Phone Number [facility] * ANTINUCLEAR ANTIBODIES DIRECT (10/09/2017 2:20 PM CDT) ZION Direct Negative Negative [facility] 1 Narrative Performed At Performed at: [id number] Sports Teacher: Nicholas Nuñez MD, Phone:[phone] Performing Organization Address City/[facility] Phone Number [facility] * Hepatitis B e antibody (10/09/2017 2:20 PM CDT) Hep Be Ab Negative Negative [facility] 1 Narrative Performed At Performed at: [id number] Sports Teacher: Mingo Marcelo MD, Phone:[phone] Performing Organization Address City/[facility] Phone Number [facility] * Ceruloplasmin (10/09/2017 2:20 PM CDT) Ceruloplasmin 16.7 (L) 19.0 - 39.0 mg/dL [facility] Narrative Performed At Performed at:02 [facility] [address] [facility] [address], [place], [id number] Sports Teacher: LINDEN Bynum MD, Phone:[phone] Performing Organization Address City/[facility] Phone Number [facility] * Hepatitis B e antigen (10/09/2017 2:20 PM CDT) Hep Be Ag Negative Negative [facility] 1 Narrative Performed At Performed at: [id number] Sports Teacher: Nicholas Nuñez MD, Phone:[phone] Performing Organization Address [facility] Centercoaz Phone Number [facility] * CBC with platelet count + automated diff (10/09/2017 2:20 PM CDT) WBC 3.7 3.4 - 10.8 x10E3/uL [facility] RBC 3.43 (L) 3.77 - 5.28 x10E6/uL [facility] Hemoglobin 11.1 11.1 - 15.9 g/dL [facility] Hematocrit 35.0 34.0 - 46.6 % [facility] MCV 102 (H) 79 - 97 fL [facility] MCH 32.4 26.6 - 33.0 pg [facility] MCHC 31.7 31.5 - 35.7 g/dL [facility] RDW 15.4 12.3 - 15.4 % [facility] 1 Platelets 82 (LL)Comment: Platelet count 150 - 379 x10E3/uL [facility] 1 verified by examination of peripheral blood smear. % Neutros 32 Not Estab. % [facility] % Lymphs 40 Not Estab. % [facility] % Monos 17 Not Estab. % [facility] % Eos 10 Not Estab. % [facility] % Baso 1 Not Estab. % [facility] # Neutros 1.2 (L) 1.4 - 7.0 x10E3/uL [facility] # Lymphs 1.5 0.7 - 3.1 x10E3/uL [facility] # Monos 0.6 0.1 - 0.9 x10E3/uL [facility] # Eos 0.4 0.0 - 0.4 x10E3/uL [facility] 1 Baso (Absolute) 0.0 0.0 - 0.2 x10E3/uL [facility] % Immature Grans 0 Not Estab. % [facility] # Immature Grans 0.0 0.0 - 0.1 x10E3/uL [facility] 1 Hematology Comments: Note:Comment: Verified by [facility] microscopic examination. Narrative Performed At Performed at: - [facility] [address] [place] [address], [id number] Sports Teacher: Nicholas Nuñez MD, Phone:[phone] Performing Organization Address [facility] Phone Number [facility] * T3 (10/09/2017 2:20 PM CDT) Triiodothyronine (T3) 64 (L) 71 - 180 ng/dL [facility] 1 Narrative Performed At Performed at:[address] [place], [place] [id number] Sports Teacher: Nicholas Nuñez MD, Phone:[phone] Performing Organization Address [facility] Phone Number [facility] * TSH (10/09/2017 2:20 PM CDT) TSH 0.404 (L) 0.450 - 4.50 uIU/mL [facility] 1 Narrative Performed At Performed at:[address] [place], [place] [id number] Sports Teacher: Nicholas Nuñez MD, Phone:[phone] Performing Organization Address [facility] Phone Number [facility] * T4 (10/09/2017 2:20 PM CDT) Thyroxine (T4) 7.0 4.5 - 12.0 ug/dL [facility] 1 Narrative Performed At Performed at:[address] [place], [place] [id number] Sports Teacher: Nicholas Nuñez MD, Phone:[phone] Performing Organization Address [facility] Phone Number [facility] * Comprehensive metabolic panel (10/09/2017 2:20 PM CDT) Glucose, Serum 277 (H) 65 - 99 mg/dL [facility] BUN 12 8 - 27 mg/dL [facility] Creatinine, Serum 1.11 (H) 0.57 - 1.00 mg/dL [facility] 1 eGFR If NonAfricn Am 53 (L) >59 mL/min/1.73 [facility] 1 eGFR If Africn Am 61 >59 mL/min/1.73 [facility] BUN/Creatinine Ratio 11 (L) 12 - 28 [facility] 1 Sodium, Serum 140 134 - 144 mmol/L [facility] Potassium, Serum 4.3 3.5 - 5.2 mmol/L [facility] 1 Chloride, Serum 105 96 - 106 mmol/L [facility] Carbon Dioxide, Total 25 18 - 29 mmol/L [facility] 1 Calcium, Serum 8.6 (L) 8.7 - 10.3 mg/dL [facility] Protein, Total, Serum 6.1 6.0 - 8.5 g/dL [facility] 1 Albumin, Serum 2.5 (L) 3.6 - 4.8 g/dL [facility] 1 Globulin, Total 3.6 1.5 - 4.5 g/dL [facility] A/G Ratio 0.7 (L) 1.2 - 2.2 [facility] 1 Bilirubin, Total 2.4 (H) 0.0 - 1.2 mg/dL [facility] 1 Alkaline Phosphatase, S 162 (H) 39 - 117 IU/L [facility] AST (SGOT) 27 0 - 40 IU/L [facility] ALT (SGPT) 19 0 - 32 IU/L [facility] 1 Narrative Performed At Performed at:01 - [facility] [address] [place], [id number] Sports Teacher: Nicholas Nuñez MD, Phone:[phone] Performing Organization Address City/State/Zipcode Phone Number [facility] 1 after 07/09/2017 Insurance Payer Benefit Subscriber ID Type Phone Address Plan / Group [facility] xxxxxxxxxxx MEDICARE ADV Advance Directives For more information, please contact: [facility] [address] [place] [address] Date Inactivated Comments Code Status Date Activated 04/05/2017 12:48 AM Full Code 04/04/2017 8:15 AM This code status was determined by: Patient
--- NOTE | 2018-07-10 12:10 | NUR ---
Call placed to RT for treatment.
[2018-07-10] MEDS ORDERED: ALBUTEROL/IPRATROPIUM 3 ML NEB ONE (12:52)
[2018-07-10 12:54] LABS: BASOPHILS % 0.7 % (0.0-1.0); EOSINOPHILS # (AUTO) 0.5 (0.0-0.4); EOSINOPHILS % 7.6 % (0.0-6.0); HEMATOCRIT 38.9 % (34.2-44.1); HEMOGLOBIN 12.9 g/dL (12.0-16.0); LYMPHOCYTES # (AUTO) 1.5 (1.0-3.2); LYMPHOCYTES % 25.5 % (18.0-39.1); MEAN CORPUSCULAR HEMOGLOBIN 31.8 pg (28-32); MEAN CORPUSCULAR HGB CONC 33.2 g/dL (31-35); MEAN CORPUSCULAR VOLUME 95.8 fL (81-99); MONOCYTES # (AUTO) 0.8 (0.2-0.8); NEUTROPHILS # (AUTO) 3.1 (2.1-6.9); PLATELET COUNT 112 x10e3/uL (140-360); RED BLOOD COUNT 4.06 x10e6/uL (3.6-5.1); RED CELL DISTRIBUTION WIDTH 17.1 % (11.7-14.4)
--- NOTE | 2018-07-10 13:17 | NUR ---
Called lab to redraw.
[2018-07-10 14:42] LABS: INR 1.52; PROTHROMBIN TIME 19.6 seconds (11.9-14.5)
[2018-07-10 14:43] LABS: PARTIAL THROMBOPLASTIN TIME 39.1 seconds (23.8-35.5)
[2018-07-10 14:54] LABS: ALBUMIN 2.5 g/dL (3.5-5.0); ALBUMIN/GLOBULIN RATIO 0.7 (0.8-2.0); CALCIUM 8.5 mg/dL (8.4-10.2); CREATININE, SERUM 1.05 mg/dL (0.57-1.11)
--- NOTE | 2018-07-10 15:00 | Diagnostic Imaging Report ---
EXAMINATION: CHEST 2 VIEWS INDICATION: Dyspnea. COMPARISON: Chest radiograph 11/29/2017. FINDINGS: TUBES and LINES: None. LUNGS: Patchy left retrocardiac opacity. Mild central vascular congestion. No evidence of pulmonary edema. PLEURA: Small left pleural effusion. No evidence of pneumothorax. HEART AND MEDIASTINUM: The cardiomediastinal silhouette is unremarkable. BONES AND SOFT TISSUES: No acute osseous lesion. Soft tissues are unremarkable. UPPER ABDOMEN: No free air under the diaphragm. Status post cholecystectomy. IMPRESSION: Small left pleural effusion with patchy left retrocardiac opacity which could represent atelectasis or pneumonia in the appropriate clinical setting. Follow chest radiograph is suggested in 6-8 weeks to assess for resolution. Signed by: Dr. Yany Ardon MD on 07/10/2018 2:56 PM
[2018-07-10 15:38] LABS: CLARITY,URINE SL CLOUDY (CLEAR); COLOR,URINE YELLOW (YELLOW)
[2018-07-10 15:39] LABS: BILIRUBIN,URINE NEGATIVE (NEGATIVE); KETONES,URINE NEGATIVE (NEGATIVE); LEUKOCYTE ESTERASE ,URINE NEGATIVE (NEGATIVE); NITRITE,URINE NEGATIVE (NEGATIVE); PROTEIN,URINE DIPSTICK NEGATIVE (NEGATIVE); URINE UROBILINOGEN 0.2 mg/dL (0.2 - 1)
[2018-07-10 15:47] LABS: AMORPHOUS SEDIMENT,URINE MODERATE (FEW); BACTERIA,URINE MANY /HPF; EPITHELIAL CELLS,URINE FEW /LPF; RBC,URINE 0-5 /HPF (0-5)
[2018-07-10] MEDS ORDERED: CEFTRIAXONE SOD 1 GM VIAL IM ONE (16:00)
[2018-07-10 16:55] VITALS: BP 127/32
[2018-07-10] MEDS ORDERED: LIDOCAINE HCL 1% LOCAL INJ 20 ML VIAL INJ ONE (17:15)
== END 2018-07-10 17:27 | disposition home or self-care (01) ==
LOC: ER 11:21
DX: R06.00 Dyspnea, unspecified (principal); R05 Cough; J18.0 Bronchopneumonia, unspecified organism; J45.909 Unspecified asthma, uncomplicated
CPT/HCPCS: 36415; 71046; 80053; 81001; 82550; 82553; 83880; 84484; 85025; 85610; 85730; 93005; 94640; 99284; J0696; J2001

== ENCOUNTER 2019-07-13 11:48 | Observation (INO) | payer MEDICARE ==
[2019-07-13] VITALS: BP 150/75
[~2019-07-13] VITALS: Ht 157.5 cm; Wt 103.4 kg
[2019-07-13 12:47] LABS: BASOPHILS % 0.5 % (0.0-1.0); EOSINOPHILS # (AUTO) 0.4 (0.0-0.4); EOSINOPHILS % 6.4 % (0.0-6.0); HEMATOCRIT 40.3 % (34.2-44.1); HEMOGLOBIN 13.4 g/dL (12.0-16.0); LYMPHOCYTES # (AUTO) 1.4 (1.0-3.2); LYMPHOCYTES % 25.4 % (18.0-39.1); MEAN CORPUSCULAR HGB CONC 33.3 g/dL (31-35); MEAN CORPUSCULAR VOLUME 99.3 fL (81-99); MONOCYTES # (AUTO) 0.8 (0.2-0.8); MONOCYTES % 15.2 % (4.4-11.3); NEUTROPHILS # (AUTO) 2.8 (2.1-6.9); NEUTROPHILS % 51.6 % (38.7-80.0); PLATELET COUNT 62 x10e3/uL (140-360); RED BLOOD COUNT 4.06 x10e6/uL (3.6-5.1); RED CELL DISTRIBUTION WIDTH 15.2 % (11.7-14.4)
[2019-07-13] MEDS ORDERED: PIPER-TAZ 3.375 GM 50 ML IV SCH (12:55)
[2019-07-13 13:19] LABS: ALANINE AMINOTRANSFERASE 30 IU/L (0-55); ALBUMIN 2.3 g/dL (3.5-5.0); ALBUMIN/GLOBULIN RATIO 0.6 (0.8-2.0); ALKALINE PHOSPHATASE 257 IU/L (40-150); ANION GAP 10.9 mmol/L (8-16); BLOOD UREA NITROGEN 17 mg/dL (7-26); BUN/CREATININE RATIO 13 (6-25); CALCIUM 8.7 mg/dL (8.4-10.2); CARBON DIOXIDE 23 mmol/L (22-29); CHLORIDE 103 mmol/L (98-107); CREATINE KINASE 110 IU/L (29-168); EST GLOMERULAR FILTRATION RATE 41 ML/MIN (60-); POTASSIUM 3.9 mmol/L (3.5-5.1); SODIUM 133 mmol/L (136-145)
[2019-07-13 13:25] LABS: GLUCOSE 430 mg/dL (74-118)
[2019-07-13 13:28] LABS: INR 1.65; PROTHROMBIN TIME 20.7 seconds (11.9-14.5)
[2019-07-13 13:29] LABS: PARTIAL THROMBOPLASTIN TIME 38.7 seconds (23.8-35.5)
[2019-07-13] MEDS ORDERED: INSULIN REGULAR, HUMAN 100 UNIT/1 ML 3ML VIAL IV ONE (13:30)
[2019-07-13] MEDS ORDERED: ALBUTEROL/IPRATROPIUM 3 ML NEB NEB ONE (14:00)
[2019-07-13] MEDS ORDERED: SODIUM CHLORIDE 0.9% 1000ML 1,000 ML ONE (14:04)
--- NOTE | 2019-07-13 14:04 | Diagnostic Imaging Report ---
EXAMINATION: CHEST 2 VIEWS INDICATION: Pneumonia COMPARISON: None FINDINGS: LINES/TUBES:None LUNGS:The lungs are moderately inflated. No focal consolidation or pulmonary edema. PLEURA:No pleural effusion or pneumothorax. MEDIASTINUM:The cardiomediastinal silhouette appears normal in size and shape. Atherosclerotic calcifications of the thoracic aorta. BONES/SOFT TISSUES:No acute osseous injury. ABDOMEN:No free air under the diaphragm. IMPRESSION: No focal pneumonia or pulmonary edema. Signed by: Zohaib Haque MD on 07/13/2019 2:02 PM
[2019-07-13 14:05] LABS: CLARITY,URINE SL CLOUDY (CLEAR); COLOR,URINE YELLOW (YELLOW); LEUKOCYTE ESTERASE ,URINE NEGATIVE (NEGATIVE); NITRITE,URINE NEGATIVE (NEGATIVE); PROTEIN,URINE DIPSTICK NEGATIVE (NEGATIVE)
[2019-07-13 14:06] LABS: BILIRUBIN,URINE SMALL (NEGATIVE); KETONES,URINE NEGATIVE (NEGATIVE); URINE UROBILINOGEN 8 mg/dL (0.2 - 1)
[2019-07-13] MEDS ORDERED: SODIUM CHLORIDE FLUSH 10 ML SYR INJ PRN (14:45)
[2019-07-13] MEDS ORDERED: ONDANSETRON HCL INJ 2MG/ML 2ML 2 MG/ML VIAL IV PRN ×2 (14:45→17:30)
[2019-07-13] MEDS ORDERED: ALBUTEROL/IPRATROPIUM 3 ML NEB NEB PRN ×2 (14:45→19:30)
[2019-07-13 14:48] LABS: BACTERIA,URINE FEW /HPF; EPITHELIAL CELLS,URINE FEW /LPF; YEAST,URINE FEW
[2019-07-13] MEDS ORDERED: IOPAMIDOL 370 MG/ML 200 ML INFUS..BTL INJ ONE (14:52)
[2019-07-13] MEDS ORDERED: SODIUM CHLORIDE 0.9% 50ML 50 ML ONE (14:52)
[2019-07-13] MEDS ORDERED: DEXTROSE 50% SYRINGE 50 ML IV PRN (15:30)
[2019-07-13] MEDS ORDERED: ALBUTEROL SULFATE HFA 8GM INHALATION AEROSOL INH PRN (15:30)
--- NOTE | 2019-07-13 15:52 | Diagnostic Imaging Report ---
EXAM: CT Chest WITH intravenous contrast 07/13/2019 1:53 PM INDICATION: Pneumonia, shortness of breath COMPARISON: Chest radiograph of the same day TECHNIQUE: Chest was scanned utilizing a multidetector helical scanner from the lung apex through the level of the adrenal glands after administration of IV contrast. Coronal and sagittal reformations were obtained. Routine protocol was performed. IV CONTRAST: 100mL Isovue 370 RADIATION DOSE: Total DLP: 571.6 mGy*cm. Dose modulation, iterative reconstruction, and/or weight based adjustment of the mA/kV was utilized to reduce the radiation dose to as low as reasonably achievable. COMPLICATIONS: None FINDINGS: LINES/ TUBES: None. LUNGS AND AIRWAYS: The central airways are patent. No focal consolidation or pulmonary edema. Bibasilar dependent subsegmental atelectasis. No suspicious pulmonary nodules. PLEURA: Small bilateral pleural effusions. No pneumothorax. HEART AND MEDIASTINUM: The thyroid gland is normal. No supraclavicular, axillary, mediastinal, or hilar lymphadenopathy. The heart is normal in size.. There is no pericardial effusion. Scattered atherosclerotic calcifications of the aorta, coronary arteries, and proximal great vessels. UPPER ABDOMEN: Status post cholecystectomy. Mildly nodular liver surface contour suggestive of hepatic cirrhosis. No other acute findings. BONES: The visualized bony thorax is within normal limits. SOFT TISSUES: Apparent left greater than right breast skin thickening. IMPRESSION: No focal pneumonia or airspace pulmonary edema. Small bilateral pleural effusions. Associated bibasilar dependent subsegmental atelectasis. Nodular liver surface contour suggestive of cirrhosis. Apparent left greater than right breast skin thickening. If the patient has not already undergone screening mammography, recommend bilateral mammogram. Signed by: Zohaib Haque MD on 07/13/2019 3:49 PM
[2019-07-13] MEDS ORDERED: SPIRONOLACTONE25 MG PO (16:23)
[2019-07-13] MEDS ORDERED: ACTIGALL300 MG PO (16:23)
[2019-07-13] MEDS ORDERED: BENZONATATE100 MG PO (16:23)
[2019-07-13] MEDS: INSULIN REGULAR, HUMAN 100 UNIT/1 ML 3ML VIAL SQ SCH ×2 (18:00→23:25)
[2019-07-13] MEDS: PROPRANOLOL HCL 10 MG TAB PO SCH (18:00)
[2019-07-13] MEDS: RIFAXIMIN 550 MG TABLET PO SCH (18:01)
--- NOTE | 2019-07-13 19:14 | History and Physical ---
PRIMARY CARE PHYSICIAN: Dr. Dorman with [facility]. CHIEF COMPLAINT: Generalized weakness, shortness of breath, and fever. HISTORY OF PRESENT ILLNESS: This is a 63-year-old female with past medical history of diabetes, hypertension, hypothyroidism, asthma, cirrhosis of the liver, hepatitis C, presented to the ER with complaints of generalized weakness, cough, fever of 100.1, nausea and vomiting that has been going on for 3 days. She denies any chest pain, productive cough, abdominal pain, dysuria, hematuria, or ill contacts. She has been taking her medication, states she has pneumonia. In the ER, she was given NS, 10 units of regular insulin for blood sugar of 430. Imaging chest x-ray showed no focal pneumonia or pulmonary edema. She has runny nose. Blood cultures have been sent and admitted for further evaluation. PAST MEDICAL HISTORY: 1. Diabetes type 2, uncontrolled. 2. Hypertension. 3. hypothyroidism. 4. 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 5. Asthma. PAST SURGICAL HISTORY: Reports cholecystectomy. FAMILY MEDICAL HISTORY: Reports mother has diabetes and father had heart problems. SOCIAL HISTORY: She reports quit smoking one week ago. She denies any alcohol or illicit drug use. ALLERGIES: NO KNOWN DRUG ALLERGIES. REVIEW OF SYSTEMS: GENERAL: Fatigue and fever. HEENT: No head trauma. LUNGS: Cough and shortness of breath. CARDIOVASCULAR: No chest pain. GI: No abdominal pain, reports nausea and vomiting this morning. NEURO: Generalized weakness. MUSCULOSKELETAL: Moves all extremities. No edema. SKIN: No rash. PHYSICAL EXAMINATION: VITAL SIGNS: Temperature 97.1, pulse 70, respirations 20, blood pressure 155/68, pulse ox is 99% on room air. GENERAL: Fatigue. HEENT: Normocephalic, atraumatic. NECK: Supple. LUNGS: Decreased breath sounds. CARDIOVASCULAR: Regular rate and rhythm. GI: Soft and nontender. NEUROLOGIC: Alert, awake, and oriented x3. MUSCULOSKELETAL: Moves all extremities. SKIN: Dry. PSYCH: Calm. LABORATORY DATA: WBC 5.51, hemoglobin 13.4, hematocrit 40.3, platelets 62. Sodium 133, potassium 3.9, CO2 of 23, creatinine 1.3. Estimated GFR 41, glucose 430, total bilirubin 4.7. AST 33, ALT 30, alkaline phosphate 257. CK 110, troponin 0.001. BNP is 300. Total protein 6.3, albumin 2.3, platelets 20.7. INR 1.65, APTT 38.7. UA is yellow and cloudy with negative leukocyte esterase, 6 to 10 RBCs, and 20 K of WBCs. Influenza A and B were negative. Blood cultures pending. IMPRESSION: 1. Acute respiratory distress. Chest x-ray, no focal pneumonia or pulmonary edema. Influenza A and B were negative. Continue with albuterol. Pulmonary on the case. 2. Acute kidney injury. Creatinine 1.3. We will continue with IV fluids and repeat labs in a.m. 3. Hypothyroidism. Continue home dose of levothyroxine. 4. Hypertension. We will continue on home medication. 5. Diabetes, uncontrolled. We will check hemoglobin A1c, sliding scale insulin, and we will resume Lantus 20 units at bedtime. 6. Thrombocytopenia. Platelets 62, likely due to cirrhosis. We will continue to monitor. 7. Cirrhosis of the liver with history of hepatitis C. We will resume home lactulose, rifaximin, and propranolol. We will obtain abdominal ultrasound to check for ascites. 8. History of asthma. Continue neb treatments. 9. Deep venous thrombosis prophylaxis. SCDs. No AC due to thrombocytopenia. PLAN: To continue on neb treatments and await on abdominal ultrasound. Dictated by KATERYNA Corey Tess Pradhan MD MY/MODL /[id number]
--- NOTE | 2019-07-13 19:42 | Diagnostic Imaging Report ---
EXAM: US ABDOMEN COMPLETE DATE: 07/13/2019 12:00 AM INDICATION: ^ascites ^[id number] ^[id number] COMPARISON: Chest CT, 07/13/2019 FINDINGS: Grayscale and color flow Doppler ultrasound of the abdomen was performed. Liver: 10.7 cm span. Coarse hepatic parenchyma with mild lobulation of the surface, findings which may be seen with cirrhosis. No intrahepatic mass or bile duct dilatation. Main portal vein 0.9 cm, nondilated, normal hepatopetal flow. Spleen: 11.6 cm length, no splenomegaly. Pancreas: Obscured. Biliary: Surgical absence of the gallbladder. Common bile duct 0.3 cm, normal. Right kidney: 10.6 x 5.6 x 5.2 cm Left kidney: 9.0 x 4.3 x 5.3 cm Cortical echogenicity and thickness normal. No hydronephrosis or contour deforming mass. Echogenic focus is seen in the midportion of the right kidney measuring 5 mm, possible nonobstructing intrarenal calculus. Ascites: None. Small pleural effusions are seen. IMPRESSION: 1. Coarse hepatic parenchyma and nodular liver surface which may be seen with cirrhosis. No dilatation of the main portal vein. No splenomegaly. 2. No dilatation of the biliary tree. 3. No ascites. Small bilateral pleural effusions. 4. Questionable small nonobstructing intrarenal calculus on the right. Signed by: Dr. Skinny Grider M.D. on 07/13/2019 7:40 PM
[2019-07-13 20:00] VITALS: BP 158/72
[2019-07-13] MEDS: PIPER-TAZ 3.375 GM 50 ML IV SCH (20:09)
[2019-07-13] MEDS ORDERED: NON-FORMULARY MEDICATION (Insulin Glargine (Lantus 3ML Pen) 20 UNIT) SQ SCH (21:00)
[2019-07-13] MEDS ORDERED: INSULIN GLARGINE 100 UNITS/ML VIAL SQ SCH (21:00)
[2019-07-13 21:20] VITALS: BP 158/72
[2019-07-13 21:30] VITALS: BP 145/72
[2019-07-13 21:42] VITALS: BP 145/72
[2019-07-13] MEDS: LACTULOSE SYRUP 20 GM/30 ML UDC PO SCH (23:25)
[2019-07-14] VITALS (7 sets, daily range): BP systolic 140–159; BP diastolic 55–77
[2019-07-14] MEDS: PIPER-TAZ 3.375 GM 50 ML IV SCH ×3 (01:47→14:23)
[2019-07-14] MEDS ORDERED: BENZONATATE 100 MG CAP PO PRN (05:30)
[2019-07-14 05:34] LABS: BASOPHILS % 0.5 % (0.0-1.0); EOSINOPHILS # (AUTO) 0.4 (0.0-0.4); EOSINOPHILS % 7.8 % (0.0-6.0); HEMATOCRIT 39.6 % (34.2-44.1); HEMOGLOBIN 13.3 g/dL (12.0-16.0); LYMPHOCYTES # (AUTO) 1.6 (1.0-3.2); MEAN CORPUSCULAR HEMOGLOBIN 33.3 pg (28-32); MEAN CORPUSCULAR HGB CONC 33.6 g/dL (31-35); MEAN CORPUSCULAR VOLUME 99.2 fL (81-99); MONOCYTES # (AUTO) 0.9 (0.2-0.8); MONOCYTES % 15.1 % (4.4-11.3); NEUTROPHILS # (AUTO) 2.6 (2.1-6.9); NEUTROPHILS % 47.1 % (38.7-80.0); PLATELET COUNT 69 x10e3/uL (140-360); RED BLOOD COUNT 3.99 x10e6/uL (3.6-5.1); RED CELL DISTRIBUTION WIDTH 15.2 % (11.7-14.4)
[2019-07-14 06:00] LABS: CREATINE KINASE 170 IU/L (29-168)
[2019-07-14] MEDS ORDERED: LEVOTHYROXINE SODIUM 125 MCG TAB PO SCH (06:00)
[2019-07-14 06:39] LABS: ANION GAP 10.1 mmol/L (8-16); CALCIUM 8.8 mg/dL (8.4-10.2); CREATININE, SERUM 1.07 mg/dL (0.57-1.11); POTASSIUM 4.1 mmol/L (3.5-5.1)
--- NOTE | 2019-07-14 07:10 | Diagnostic Imaging Report ---
EXAMINATION: CHEST SINGLE (PORTABLE) COMPARISON: CT chest 07/13/2019 INDICATION: ^SOB ^[id number] ^[id number] DISCUSSION: Frontal view of the chest obtained at 0625 hours. HEART AND MEDIASTINUM: The heart is top normal in size to mildly enlarged. LINES: None. LUNGS/PLEURA: Bibasilar atelectasis and small pleural effusions. Central pulmonary veins are prominent and stable. No pneumothorax. BONES AND SOFT TISSUES: No focal osseous lesion. The soft tissues are normal. IMPRESSION: Bilateral pleural effusions and bibasilar atelectasis. Stable prominence of the pulmonary veins. Signed by: Dr. Agnieszka Bird MD on 07/14/2019 7:07 AM
[2019-07-14 07:22] LABS: PLATELET ESTIMATE MARKEDLY DECREASED
[2019-07-14 07:23] LABS: PLATELET MORPHOLOGY COMMENT FEW LARGE
[2019-07-14] MEDS ORDERED: PANTOPRAZOLE SOD 40 MG TABEC PO SCH (07:30)
[2019-07-14] MEDS: INSULIN REGULAR, HUMAN 100 UNIT/1 ML 3ML VIAL SQ SCH ×3 (07:56→16:41)
[2019-07-14] MEDS: RIFAXIMIN 550 MG TABLET PO SCH ×2 (08:24→16:44)
[2019-07-14] MEDS: LACTULOSE SYRUP 20 GM/30 ML UDC PO SCH ×2 (08:24→15:40)
[2019-07-14] MEDS: PROPRANOLOL HCL 10 MG TAB PO SCH ×2 (08:24→16:45)
[2019-07-14] MEDS: URSODIOL 300 MG CAP PO SCH ×2 (08:24→16:44)
[2019-07-14] MEDS ORDERED: ZINC SULFATE 220 MG CAP PO SCH (09:00)
[2019-07-14] MEDS ORDERED: MAGNESIUM OXIDE 400 MG TAB PO SCH (09:00)
[2019-07-14] MEDS ORDERED: FUROSEMIDE 40 MG TAB PO SCH (09:00)
[2019-07-14] MEDS ORDERED: SPIRONOLACTONE 25 MG TAB PO SCH (09:00)
[2019-07-14] MEDS ORDERED: METHYLPREDNISOLONE SOD SUCC 40 MG/ML VIAL 1ML IV ONE (09:15)
--- NOTE | 2019-07-14 14:07 | Consultation ---
DATE OF CONSULTATION: Pulmonary Critical Care Consultation CHIEF COMPLAINT: Dyspnea and wheezing. HISTORY OF PRESENT ILLNESS: The patient is a 63-year-old woman with a history of cirrhosis, hepatitis C, and asthma. She uses a rescue inhaler at home, but does not have oxygen or nebulizer. She is on Aldactone and lactulose at home for her cirrhosis. She comes in complaining of worsening dyspnea. She had some cough. She denies any wheezing. She does not complain of chest pain or fevers. In the emergency department, she was noted to have elevated blood sugar and received insulin. She was also started on antibiotics and given bronchodilators and oxygen. PAST SURGICAL HISTORY: Status post cholecystectomy. PAST MEDICAL HISTORY: 1. Prior cerebrovascular accident. 2. The patient denies any prior cardiac disease. 3. Hypertension. 4. Cirrhosis and hepatitis C. 5. Asthma. FAMILY HISTORY: There is a history of diabetes and cardiac disease in the family. SOCIAL HISTORY: The patient quit smoking about 6 months ago. She does not use any alcohol. ALLERGIES: THERE ARE NO KNOWN DRUG ALLERGIES. REVIEW OF SYSTEMS: She does not complain of fevers. There is no headache. She reports no neck pain. She did have some shortness of breath, but no cough. She denies wheezing. She is not having chest pain. She denies abdominal pain. There is no leg edema. PHYSICAL EXAMINATION: VITAL SIGNS: The patient is afebrile. The blood pressure is 143/55 and saturation is 98% on room air. HEENT: Shows no facial swelling or erythema. The oropharynx is normal. LYMPHATIC: Shows no submandibular, cervical, or supraclavicular adenopathy. CARDIAC: Reveals regular rate and rhythm with normal S1 and S2. LUNGS: Auscultation of lungs reveals prolonged breath sounds bilaterally. There is no wheezing. There are some decreased breath sounds at the bases. ABDOMEN: Soft and nontender. There is no rebound or guarding. EXTREMITIES: Shows no leg edema or calf tenderness. There is no cyanosis or clubbing. SKIN: Shows no rashes. NEUROLOGICAL: Shows no focal abnormalities. LABORATORY DATA: BUN to creatinine ratio 15 to 1.07. Glucose is 213. Other electrolytes are within normal limits. The platelet count is low at 69. RADIOGRAPHIC DATA: Chest CT from yesterday shows small bilateral pleural effusions and some bibasilar atelectasis. There are nodular cirrhotic changes in the liver. IMPRESSION: 1. Asthma with acute exacerbation. 2. Hepatopulmonary syndrome. 3. Cirrhosis. 4. Hypertension. 5. Thrombocytopenia. 6. Diabetes. PLAN: 1. Solu-Medrol x1 dose now. 2. Continue bronchodilators. 3. Echocardiogram to assess cardiac function. 4. Continue diuretics and lactulose. 5. Out of bed as tolerated. Sam Gomez MD [facility]/MODL /[id number]
[2019-07-14] MEDS ORDERED: PROVENTIL HFA6.7 GM INH (15:51)
--- NOTE | 2019-07-16 02:54 | Discharge Summary ---
PRIMARY CARE PHYSICIAN: Dr. Dorman at [facility]. FINAL DISCHARGE DIAGNOSES: 1. Acute asthma exacerbation with acute respiratory distress. 2. Acute kidney injury. 3. Hypothyroidism. 4. Hypertension. 5. Uncontrolled diabetes. 6. Thrombocytopenia due to cirrhosis. 7. Cirrhosis of the liver with history of hepatitis C. CONSULTANTS: Sam Gomez MD, pulmonary. PROCEDURES: None. HISTORY: Per HPI. HOSPITAL COURSE: This is a 63-year-old female, who presented to the ER with complaints of generalized weakness, cough, shortness of breath, fever, nausea, and vomiting for the past three days. Chest x-ray showed no focal pneumonia or pulmonary edema. Pulmonary was consulted, she was started on neb treatments, steroids, and antibiotics. Influenza A and B were negative. She was monitored overnight, IV fluids for dehydration, MARCIO improved overnight. Abdominal ultrasound was negative. She was resumed on her cirrhosis medications. She remained afebrile, no leukocytosis, shortness of breath improved, we will discharge home on antibiotics, Medrol [place], and neb treatments. To follow up with her PCP in 1 to 2 weeks for repeat chest x-ray. CT chest also was done to rule out PE. It shows some small bilateral pleural effusion, likely due to atelectasis. Also noted right breast skin thickening, the patient has had a mammogram last year which was negative, and advised to follow up with a routine screening mammogram soon. She has no palpable nodules or rash noted. We will discharge home to follow up with her PCP. PHYSICAL EXAMINATION: VITAL SIGNS: Temperature 97.1, pulse is 71, respirations 18, blood pressure 140/63, pulse ox is 96% on room air. GENERAL: No acute distress. HEENT: Normocephalic and atraumatic. NECK: Supple. LUNGS: Decreased breath sounds. CARDIOVASCULAR: Regular rate and rhythm. GI: Soft and nontender. NEUROLOGIC: Alert, awake, and oriented x3. SKIN: Dry. PSYCH: Calm. DISCHARGE MEDICATIONS: Please see medication reconciliation list. 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 TIME SPENT: Total time of discharge is 32 minutes. Dictated by KATERYNA Corey Tess Pradhan MD MY/MODL /[id number] cc: Yoandy Dorman MD [facility] Seen and examined on 07/14/19. Agree with the findings and plan as documented by KATERYNA Ziegler. KANDID
== END 2019-07-14 17:25 | disposition home or self-care (01) ==
LOC: ER 11:48 → ERHOLD 14:53 → IMCU 20:57
PROVIDERS: ADMIT Internal Medicine; ATTEND Internal Medicine
DX: J45.901 Unspecified asthma with (acute) exacerbation (principal); R06.03 Acute respiratory distress; N17.9 Acute kidney failure, unspecified; D69.6 Thrombocytopenia, unspecified; K74.69 Other cirrhosis of liver; K76.81 Hepatopulmonary syndrome; B19.20 Unspecified viral hepatitis C without hepatic coma; I10 Essential (primary) hypertension; E11.9 Type 2 diabetes mellitus without complications; Z90.710 Acquired absence of both cervix and uterus; Z83.3 Family history of diabetes mellitus; Z82.49 Family history of ischemic heart disease and other diseases of the circulatory system; E03.9 Hypothyroidism, unspecified; Z90.49 Acquired absence of other specified parts of digestive tract; Z79.4 Long term (current) use of insulin
CPT/HCPCS: 36415; 71045; 71046; 71260; 76700; 80048; 80053; 81001; 82550; 82553; 82948; 83880; 84484; 85025; 85610; 85730; 87040; 87400; 93005; 93306; 94640; 96372; 99284; G0378; J1815; J1817; J2543; J2920; J7030; Q9967

== ENCOUNTER 2019-07-19 14:56 | Inpatient (IN) | payer MEDICARE ==
[~2019-07-19] VITALS: Ht 157.5 cm; Wt 99.8 kg
[~2019-07-19 14:56] MED LIST changes: +ACTIGALL300 MG PO; +BENZONATATE100 MG PO; +PROVENTIL HFA6.7 GM INH; +SPIRONOLACTONE25 MG PO
[2019-07-19 16:28] LABS: BASOPHILS # (AUTO) 0.1 (0.0-0.1); BASOPHILS % 0.5 % (0.0-1.0); EOSINOPHILS # (AUTO) 0.1 (0.0-0.4); HEMATOCRIT 41.2 % (34.2-44.1); HEMOGLOBIN 13.9 g/dL (12.0-16.0); LYMPHOCYTES # (AUTO) 1.6 (1.0-3.2); LYMPHOCYTES % 12.6 % (18.0-39.1); MEAN CORPUSCULAR HEMOGLOBIN 34.1 pg (28-32); MEAN CORPUSCULAR HGB CONC 33.7 g/dL (31-35); MONOCYTES # (AUTO) 1.2 (0.2-0.8); MONOCYTES % 9.2 % (4.4-11.3); NEUTROPHILS % 71.6 % (38.7-80.0); RED BLOOD COUNT 4.08 x10e6/uL (3.6-5.1); RED CELL DISTRIBUTION WIDTH 14.9 % (11.7-14.4)
[2019-07-19 16:29] LABS: PLATELET COUNT 97 x10e3/uL (140-360)
[2019-07-19 16:33] LABS: INR 1.69; PROTHROMBIN TIME 21.1 seconds (11.9-14.5)
[2019-07-19 16:34] LABS: CLARITY,URINE SL CLOUDY (CLEAR); COLOR,URINE YELLOW (YELLOW)
[2019-07-19 16:35] LABS: BILIRUBIN,URINE NEGATIVE (NEGATIVE); KETONES,URINE NEGATIVE (NEGATIVE); LEUKOCYTE ESTERASE ,URINE NEGATIVE (NEGATIVE); NITRITE,URINE NEGATIVE (NEGATIVE); PROTEIN,URINE DIPSTICK NEGATIVE (NEGATIVE); URINE UROBILINOGEN 1 mg/dL (0.2 - 1)
[2019-07-19 16:40] LABS: ALANINE AMINOTRANSFERASE 37 IU/L (0-55); ALBUMIN 2.4 g/dL (3.5-5.0); ALBUMIN/GLOBULIN RATIO 0.6 (0.8-2.0); ALKALINE PHOSPHATASE 398 IU/L (40-150); ANION GAP 10.5 mmol/L (8-16); BLOOD UREA NITROGEN 14 mg/dL (7-26); BUN/CREATININE RATIO 13 (6-25); CALCIUM 8.9 mg/dL (8.4-10.2); CARBON DIOXIDE 24 mmol/L (22-29); CHLORIDE 101 mmol/L (98-107); CREATINE KINASE 101 IU/L (29-168); CREATININE, SERUM 1.05 mg/dL (0.57-1.11); EST GLOMERULAR FILTRATION RATE 53 ML/MIN (60-); POTASSIUM 4.5 mmol/L (3.5-5.1); SODIUM 131 mmol/L (136-145)
[2019-07-19 16:46] LABS: EPITHELIAL CELLS,URINE FEW /LPF; RBC,URINE 0-5 /HPF (0-5); TRANSITIONAL EPI CELLS,URINE RARE; WBC,URINE (MAN) 0-5 /HPF (0-5)
[2019-07-19 17:00] LABS: GLUCOSE 549 mg/dL (74-118)
[2019-07-19] MEDS ORDERED: INSULIN REGULAR, HUMAN 100 UNIT/1 ML 3ML VIAL IV ONE (17:15)
[2019-07-19] MEDS ORDERED: SODIUM CHLORIDE 0.9% 1000ML 1,000 ML ONE (17:20)
--- NOTE | 2019-07-19 17:22 | Diagnostic Imaging Report ---
EXAMINATION: CHEST SINGLE (PORTABLE) INDICATION: Cirrhosis, abdominal pain COMPARISON: Chest radiograph 07/13/2019 FINDINGS: LINES/TUBES:None LUNGS:The lungs are well-inflated. No focal consolidation or pulmonary edema. PLEURA:No pleural effusion or pneumothorax. MEDIASTINUM:The cardiomediastinal silhouette appears normal in size and shape. BONES/SOFT TISSUES:No acute osseous injury. ABDOMEN:No free air under the diaphragm. IMPRESSION: No focal pneumonia or pulmonary edema. Signed by: Zohaib Haque MD on 07/19/2019 5:20 PM
[2019-07-19] MEDS ORDERED: SODIUM CHLORIDE 0.9% 1000ML 1,000 ML IV SCH (17:30)
[2019-07-19] MEDS ORDERED: DEXTROSE 50% SYRINGE 50 ML IV PRN ×2 (18:45→22:15)
[2019-07-19] MEDS ORDERED: ONDANSETRON HCL INJ 2MG/ML 2ML 2 MG/ML VIAL IV PRN (18:45)
[2019-07-19] MEDS ORDERED: SODIUM CHLORIDE FLUSH 10 ML SYR INJ PRN (18:45)
[2019-07-19 20:00] VITALS: BP 164/86
[2019-07-19] MEDS: CEFEPIME 2 GM/NS 0.9% 100 ML 100 ML IV SCH (20:01)
[2019-07-19] MEDS ORDERED: SODIUM CHLORIDE 0.9% 50ML 50 ML ONE (20:10)
[2019-07-19] MEDS ORDERED: IOPAMIDOL 370 MG/ML 200 ML INFUS..BTL INJ ONE (20:10)
--- NOTE | 2019-07-19 20:11 | Diagnostic Imaging Report ---
EXAMINATION: CT of the abdomen and pelvis with contrast. TECHNIQUE: Spiral CT images of the abdomen and pelvis were performed from the lung bases to the lesser trochanters after the intravenous administration of 100 cc of Isovue 370 and the oral administration of water. Coronal and sagittal reformatted images were obtained. COMPARISON: Abdominal ultrasound 07/13/2019 CLINICAL HISTORY:Abdominal distention DISCUSSION: ABDOMEN/PELVIS: LOWER THORAX:Small bilateral pleural effusions and associated atelectasis of the lower lobes. Calcification of the mitral annulus. Mild atherosclerotic calcification of the aortic valves. HEPATOBILIARY: Shrunken nodular liver consistent with cirrhosis. No focal lesions. No intra or extrahepatic biliary ductal dilation. GALLBLADDER: Cholecystectomy clips. SPLEEN: No splenomegaly. PANCREAS: No focal masses or ductal dilatation. ADRENALS: No adrenal nodules. KIDNEYS/URETERS: No hydronephrosis, stones, or solid mass lesions. PELVIC ORGANS/BLADDER: Bladder is unremarkable. Uterus is unremarkable. No adnexal masses. PERITONEUM/RETROPERITONEUM: Small amount of perihepatic and pelvic ascites. LYMPH NODES: No intra-abdominal, retroperitoneal, pelvic or inguinal lymphadenopathy. VESSELS: The celiac trunk,superior and inferior mesenteric and bilateral renal arteries are patent The portal, superior mesenteric and splenic veins are patent. Collateral circulation in the form of a recanalized umbilical vein as well as a splenorenal shunt. GI TRACT: No bowel dilation or evidence of obstruction. No pericolonic inflammatory changes. BONES AND SOFT TISSUE: No aggressive lytic lesions. Generalized soft tissue edema. IMPRESSION: 1. No bowel dilation or evidence of obstruction. 2. Cirrhotic liver with evidence of portal hypertension manifested by collateral circulation and perihepatic and pelvic ascites. Generalized soft tissue edema. No focal hepatic lesions. 3. Small bilateral pleural effusions and associated bilateral lower lobe atelectasis. Signed by: Dr. Mike Dumont M.D. on 07/19/2019 8:09 PM
[2019-07-19 21:38] VITALS: BP 164/86
--- NOTE | 2019-07-19 21:44 | NUR ---
Patient arrived to floor via stretcher.
[2019-07-19] MEDS: INSULIN LISPRO 100 UNIT/1 ML 3ML VIAL SQ SCH (22:00)
[2019-07-19] MEDS ORDERED: ALBUTEROL SULFATE HFA 8GM INHALATION AEROSOL INH PRN (22:15)
[2019-07-20] VITALS (7 sets, daily range): BP systolic 132–156; BP diastolic 58–91
[2019-07-20 01:47] LABS: CREATINE KINASE MB 1.8 ng/mL (0-5.0)
--- NOTE | 2019-07-20 05:41 | Diagnostic Imaging Report ---
Examination: Single AP view of the chest. COMPARISON: 07/19/2019, CT abdomen and pelvis 07/19/2019 INDICATION: Abdominal pain DISCUSSION: The lungs are well-inflated. Small bilateral pleural effusions with lower lobe airspace disease, likely atelectasis. No new consolidations. Cardiomediastinal contour and pulmonary vasculature are within normal limits when accounting for AP technique. No acute osseous abnormalities. IMPRESSION: Small bilateral pleural effusions and bibasilar subsegmental atelectasis better characterized on CT abdomen and pelvis 07/19/2019. Signed by: Dr. Raul Barry M.D. on 07/20/2019 5:38 AM
[2019-07-20] MEDS: CEFEPIME 2 GM/NS 0.9% 100 ML 100 ML IV SCH ×2 (06:00→17:23)
--- NOTE | 2019-07-20 06:00 | NUR ---
Called consult to Dr Gomez.
[2019-07-20] MEDS: LEVOTHYROXINE SODIUM 125 MCG TAB PO SCH (06:17)
[2019-07-20 06:19] LABS: BASOPHILS # (AUTO) 0.1 (0.0-0.1); BASOPHILS % 0.5 % (0.0-1.0); EOSINOPHILS # (AUTO) 0.1 (0.0-0.4); EOSINOPHILS % 1.1 % (0.0-6.0); HEMATOCRIT 41.6 % (34.2-44.1); LYMPHOCYTES # (AUTO) 1.4 (1.0-3.2); MEAN CORPUSCULAR HEMOGLOBIN 33.8 pg (28-32); MEAN CORPUSCULAR HGB CONC 33.7 g/dL (31-35); MEAN CORPUSCULAR VOLUME 100.5 fL (81-99); MONOCYTES % 8.5 % (4.4-11.3); NEUTROPHILS # (AUTO) 9.1 (2.1-6.9); NEUTROPHILS % 73.6 % (38.7-80.0); PLATELET COUNT 88 x10e3/uL (140-360); RED BLOOD COUNT 4.14 x10e6/uL (3.6-5.1); RED CELL DISTRIBUTION WIDTH 15.2 % (11.7-14.4)
[2019-07-20 06:39] LABS: ANION GAP 7.5 mmol/L (8-16); CALCIUM 8.9 mg/dL (8.4-10.2); CREATININE, SERUM 1.02 mg/dL (0.57-1.11); MAGNESIUM 1.8 MG/DL (1.3-2.1); PHOSPHORUS 2.3 MG/DL (2.3-4.7); POTASSIUM 4.5 mmol/L (3.5-5.1)
[2019-07-20] MEDS: ALBUTEROL/IPRATROPIUM 3 ML NEB NEB PRN ×2 (07:00→19:20)
[2019-07-20] MEDS: INSULIN REGULAR, HUMAN 100 UNIT/1 ML 3ML VIAL SQ SCH ×4 (07:30→21:00)
[2019-07-20] MEDS: INSULIN LISPRO 100 UNIT/1 ML 3ML VIAL SQ SCH (07:30)
--- NOTE | 2019-07-20 07:30 | NUR ---
GLUCOSE 448 SPOKE WITH MARKO MEEKS,.GAVE INSULIN ORDERED.
--- NOTE | 2019-07-20 07:30 | NUR ---
PT IN BED RESTING NO DISTRESS NOTED.
[2019-07-20] MEDS: URSODIOL 300 MG CAP PO SCH ×2 (09:00→17:00)
[2019-07-20] MEDS: PROPRANOLOL HCL 10 MG TAB PO SCH ×2 (09:27→17:00)
[2019-07-20] MEDS: SPIRONOLACTONE 25 MG TAB PO SCH (09:27)
[2019-07-20] MEDS: FUROSEMIDE 40 MG TAB PO SCH (09:27)
[2019-07-20] MEDS: PANTOPRAZOLE SOD 40 MG TABEC PO SCH (09:27)
[2019-07-20] MEDS: RIFAXIMIN 550 MG TABLET PO SCH ×2 (09:28→17:00)
[2019-07-20] MEDS: LACTULOSE SYRUP 20 GM/30 ML UDC PO SCH ×3 (09:28→21:00)
[2019-07-20] MEDS: MAGNESIUM OXIDE 400 MG TAB PO SCH (09:28)
[2019-07-20] MEDS: ZINC SULFATE 220 MG CAP PO SCH (09:28)
[2019-07-20] MEDS: BENZONATATE 100 MG CAP PO SCH ×3 (09:28→21:00)
[2019-07-20] MEDS ORDERED: LACTULOSE SYRUP 20 GM/30 ML UDC PO ONE (09:30)
[2019-07-20] MEDS ORDERED: INSULIN REGULAR, HUMAN 100 UNIT/1 ML 3ML VIAL SQ ONE (12:30)
--- NOTE | 2019-07-20 16:26 | Consultation ---
DATE OF CONSULTATION: 07/20/2019 Pulmonary Critical Care Consultation CHIEF COMPLAINT: History of asthma and cirrhosis with abdominal pain. HISTORY OF PRESENT ILLNESS: The patient is a 63-year-old woman. She has a history of hepatitis C and cirrhosis as well as asthma. She uses nebulizers at home as well as a rescue inhaler. She was recently hospitalized for asthma exacerbation, but improved with bronchodilators and Solu-Medrol. She also has a history of liver disease and takes rifaximin, Inderal, and lactulose on a regular basis. She came to the hospital complaining of worsening abdominal distention. She feels malaise and shortness of breath. She does not complain of coughing or wheezing. She denies any fevers. She has not had any recent bowel movements. PAST SURGICAL HISTORY: Status post cholecystectomy. PAST MEDICAL HISTORY: 1. Cirrhosis and hepatitis C. 2. Asthma. 3. Prior cerebrovascular accident. 4. Hypertension. FAMILY HISTORY: There is a history of diabetes and heart disease in the family. SOCIAL HISTORY: The patient quit smoking 6 months ago. She does not use any alcohol. ALLERGIES: NO KNOWN DRUG ALLERGIES. REVIEW OF SYSTEMS: The patient denies any fevers. She has no headache. She is not having any neck pain. Her oropharynx is normal. She does not complain of any swollen glands. She denies chest pain. She reports mild dyspnea. She reports abdominal distention. She has no nausea or vomiting. She has no leg swelling. She has no focal neurological complaints. PHYSICAL EXAMINATION: VITAL SIGNS: The blood pressure is 132/58 and saturation is 95%. Pulse is 78. HEENT: Shows no facial swelling or erythema. LYMPHATIC: Shows no submandibular, cervical, or supraclavicular adenopathy. CARDIAC: Reveals regular rate and rhythm with normal S1, S2. LUNGS: Auscultation of lungs reveals a prolonged expiratory phase. There is no wheezing. ABDOMEN: Mildly distended. There is some mild tenderness, but it is soft. There is no rebound. EXTREMITIES: Show no leg edema or calf tenderness. There is no cyanosis, clubbing. SKIN: Shows no rashes. NEUROLOGICAL: Shows no focal abnormalities. LABORATORY DATA: White blood cell count is 12.3, hemoglobin is 14, and the platelet count is 88. The BUN to creatinine ratio is 15 to 1.02. Sodium is 131 and the glucose is 448. RADIOGRAPHIC DATA: CT scan of the abdomen and pelvis shows cirrhotic liver with evidence of portal hypertension. She has small bilateral pleural effusions. There is no bowel dilatation. There is no obvious ascites. IMPRESSION: 1. Cirrhosis with portal hypertension. 2. Uncontrolled diabetes. 3. Leukocytosis of unclear etiology. 4. Thrombocytopenia. 5. Hypothyroidism. PLAN: 1. The patient will restart her lactulose. She also continue her rifaximin and Inderal. 2. The patient is on antibiotics and awaiting culture results. 3. Adjust insulin and monitor blood sugars. 4. Out of bed as tolerated. Sam Gomez MD [facility]/MODL /[id number]
[2019-07-20] MEDS ORDERED: INSULIN REGULAR, HUMAN 100 UNIT/1 ML 3ML VIAL SQ SCH (16:30)
--- NOTE | 2019-07-20 17:26 | NUR ---
PT UP IN BED GLUCOSE 352 S/S INSULIN GIVEN,DENIES PAIN
[2019-07-20] MEDS ORDERED: INSULIN GLARGINE 100 UNITS/ML VIAL SQ SCH ×2 (21:00)
--- NOTE | 2019-07-20 21:24 | History and Physical ---
PRIMARY CARE PHYSICIAN: Dr. Dorman with [facility]. CHIEF COMPLAINT: Generalized weakness, bloating, and abdominal pain. HISTORY OF PRESENT ILLNESS: This is a 63-year-old female with past medical history of diabetes, hypertension, hypothyroidism, asthma, cirrhosis of the liver, hepatitis C, presented to the ER with complaints of generalized weakness and abdominal pain with bloated feeling. She was recently admitted and discharged on 07/16 after treatment for upper respiratory infection. She reports cough and upper respiratory problems have resolved, but is having abdominal pain, nausea, vomiting, and bloated feeling. She denies any fever, chills, dysuria, diarrhea, constipation, or melena. In the ER, WBC 12.58, hemoglobin 13.9. Blood sugar was elevated at 549. Sodium 131, troponin negative. BNP 228. CT abdomen and pelvis showed no bowel dilation or obstruction; cirrhotic liver with evidence of portal hypertension, manifested by collateral circulation and perihepatic and pelvic ascites. Generalized soft tissue edema. No focal hepatic lesion and small bilateral pleural effusion in the lower lobes. She is admitted for further evaluation and workup. PAST MEDICAL HISTORY: 1. Diabetes type 2. 2. Hypertension. 3. Hypothyroidism. 4. Cirrhosis of the liver. 5. Hepatitis C. 6. Asthma. PAST SURGICAL HISTORY: Reports cholecystectomy. FAMILY MEDICAL HISTORY: Reports mother has diabetes and father had heart problems. SOCIAL HISTORY: She quit smoking one week ago and denies any alcohol or illicit drug use. ALLERGIES: NO KNOWN DRUG ALLERGIES. REVIEW OF SYSTEMS: GENERAL: Fatigue and generalized weakness. HEENT: No head trauma. LUNGS: No shortness of breath. CARDIOVASCULAR: No chest pain or palpitations. GI: Abdominal tenderness, bloating, nausea, and vomiting. NEUROLOGIC: Generalized weakness. MUSCULOSKELETAL: Moves lower extremities: No edema. SKIN: No rash. PHYSICAL EXAMINATION: VITAL SIGNS: Temperature 97.4, pulse 75, respirations 20, blood pressure 156/91, pulse ox is 93% on room air. GENERAL: Fatigue and generalized weakness. HEENT: Normocephalic and atraumatic. NECK: Supple. LUNGS: Decreased breath sounds. CARDIOVASCULAR: Regular rate and rhythm. GI: Bloated and tender to touch. Soft. NEUROLOGIC: Alert, awake, and oriented x3. MUSCULOSKELETAL: Moves all extremities. SKIN: Dry. PSYCH: Calm. LABORATORY DATA: WBC 12.3, hemoglobin 14.0, hematocrit 41.6, platelets 88. Sodium 131, potassium 4.5. BUN is 15, creatinine 1.02, estimated GFR is 15, glucose 448, magnesium 1.8. Troponin x3 of 0.001. BNP 228. PT is 21.1, INR is 1.69, APTT is 30. UA is yellow, slightly cloudy with 3+ glucose, trace blood, negative leukocyte esterase, and no bacteria. Urine culture, mixed david contamination. IMAGING: Chest x-ray, no focal pneumonia or pulmonary edema. CT abdomen and pelvis as noted above on HPI. Chest x-ray repeated today shows small bilateral pleural effusion and bibasilar subsegmental atelectasis. IMPRESSION: 1. Abdominal pain with bloating. CT abdomen and pelvis noted, we will order an ultrasound of the abdomen to rule out ascites to see if it needs to be tapped. We will continue on antibiotics. 2. Cirrhosis of the liver. We will check ammonia level. 3. Hypertension. Resume home medications. 4. Hypothyroidism. Continue levothyroxine. 5. Uncontrolled diabetes. We will increase sliding scale to medium scale, and Lantus 30 units at bedtime. 6. History of hepatitis C. Aware. 7. History of asthma. Continue neb treatments as needed. 8. Thrombocytopenia. Platelets of 88. No signs of active bleeding. We will continue to monitor closely. 9. Deep venous thrombosis prophylaxis. SCDs. No AC due to thrombocytopenia. PLAN: We will obtain abdominal ultrasound to see if we need to do paracentesis, continue antibiotics and check ammonia level. Dictated by KATERYNA Corey Tess Pradhan MD MY/MODL /[id number]
[2019-07-21] VITALS: BP 130/60
[2019-07-21 04:00] VITALS: BP 129/64
[2019-07-21] MEDS: CEFEPIME 2 GM/NS 0.9% 100 ML 100 ML IV SCH (06:00)
[2019-07-21] MEDS: LEVOTHYROXINE SODIUM 125 MCG TAB PO SCH (06:00)
[2019-07-21 06:16] LABS: BASOPHILS # (AUTO) 0.1 (0.0-0.1); BASOPHILS % 0.6 % (0.0-1.0); EOSINOPHILS # (AUTO) 0.5 (0.0-0.4); EOSINOPHILS % 4.4 % (0.0-6.0); HEMOGLOBIN 13.4 g/dL (12.0-16.0); LYMPHOCYTES # (AUTO) 2.1 (1.0-3.2); LYMPHOCYTES % 20.4 % (18.0-39.1); MEAN CORPUSCULAR HEMOGLOBIN 33.8 pg (28-32); MEAN CORPUSCULAR HGB CONC 33.5 g/dL (31-35); MEAN CORPUSCULAR VOLUME 100.8 fL (81-99); MONOCYTES % 10.1 % (4.4-11.3); NEUTROPHILS # (AUTO) 6.3 (2.1-6.9); NEUTROPHILS % 61.5 % (38.7-80.0); PLATELET COUNT 74 x10e3/uL (140-360); RED BLOOD COUNT 3.97 x10e6/uL (3.6-5.1); RED CELL DISTRIBUTION WIDTH 15.8 % (11.7-14.4)
[2019-07-21 06:52] LABS: ALBUMIN 2.1 g/dL (3.5-5.0); ALBUMIN/GLOBULIN RATIO 0.6 (0.8-2.0); ANION GAP 8.6 mmol/L (8-16); CALCIUM 8.5 mg/dL (8.4-10.2); CREATININE, SERUM 0.98 mg/dL (0.57-1.11); POTASSIUM 3.6 mmol/L (3.5-5.1)
[2019-07-21] MEDS: INSULIN REGULAR, HUMAN 100 UNIT/1 ML 3ML VIAL SQ SCH ×2 (07:30→11:30)
[2019-07-21 08:02] VITALS: BP 128/82
[2019-07-21] MEDS: RIFAXIMIN 550 MG TABLET PO SCH (08:46)
[2019-07-21] MEDS: LACTULOSE SYRUP 20 GM/30 ML UDC PO SCH (08:46)
[2019-07-21] MEDS: BENZONATATE 100 MG CAP PO SCH (08:46)
[2019-07-21] MEDS: PROPRANOLOL HCL 10 MG TAB PO SCH (08:46)
[2019-07-21] MEDS: URSODIOL 300 MG CAP PO SCH (08:46)
[2019-07-21 09:00] LABS: ANISOCYTOSIS SLIGHT; PLATELET ESTIMATE SLIGHTLY DECREASED; PLATELET MORPHOLOGY COMMENT NORMAL; RBC MORPHOLOGY COMMENT NORMAL
--- NOTE | 2019-07-21 09:13 | Diagnostic Imaging Report ---
EXAM: US ABDOMEN LIMITED DATE: 07/21/2019 12:00 AM INDICATION: Ascites COMPARISON: CT abdomen/pelvis from 07/19/2019 FINDINGS: Limited sonographic images are obtained of the 4 quadrants for the assessment of ascites. There is no ascites present. IMPRESSION: No ascites present. Signed by: Dr. Oleksandr Xiong MD on 07/21/2019 9:10 AM
[2019-07-21] MEDS: SPIRONOLACTONE 25 MG TAB PO SCH (09:45)
[2019-07-21] MEDS: ZINC SULFATE 220 MG CAP PO SCH (09:45)
[2019-07-21] MEDS: MAGNESIUM OXIDE 400 MG TAB PO SCH (09:45)
[2019-07-21] MEDS: FUROSEMIDE 40 MG TAB PO SCH (09:45)
[2019-07-21] MEDS: PANTOPRAZOLE SOD 40 MG TABEC PO SCH (09:45)
[2019-07-21 10:19] LABS: NEUTROPHILS % (MANUAL) 67 % (40-74)
[2019-07-21 10:20] LABS: EOSINOPHILS % (MANUAL) 3 % (0-7); LYMPHOCYTES % (MANUAL) 20 % (19-48); MONOCYTES % (MANUAL) 10 % (3.4-9.0)
[2019-07-21] MEDS ORDERED: LACTULOSE SYRUP 20 GM/30 ML UDC PO ONE (10:30)
[2019-07-21 11:51] VITALS: BP 165/81
[2019-07-21 12:12] VITALS: BP 158/82
--- NOTE | 2019-07-21 15:25 | NUR ---
Visit made by the Spiritual Care Department Pastoral Visitor, Laverne Damon. PV provided ashes for Altaf Friday. Pastoral Visitor informed pt/family of the scope of [employer] and availability. LEILA SAMUELS Job Estimator Spiritual Care Department O: [phone]
--- NOTE | 2019-07-21 15:44 | NUR ---
PATIENT DISCHARGE HOME- PATIENT OFF THE UNIT AT 1342 PER WHEELCHAIR ACCOMPANIED BY PCT TO THE FRONT LOBBY. PATIENT IN STABLE CONDITION WITH NO S/S OF RESPIRATORY DISTRESS. NO PAIN VOICED. IV REMOVED WITH TIP INTACT. DISCHARGE TEACHING AND INSTRUCTIONS GIVEN TO THE PATIENT. ALL PERSONAL ITEMS TAKEN WITH THE PATIENT AND HER DAUGHTER.
--- NOTE | 2019-07-22 08:21 | Discharge Summary ---
PRIMARY CARE PHYSICIAN: Dr. Dorman with [facility]. FINAL DISCHARGE DIAGNOSES: 1. Abdominal pain with bloating. 2. Cirrhosis of the liver. 3. Hypertension. 4. Hypothyroidism. 5. Uncontrolled diabetes. 6. History of hepatitis C. 7. Hyper ammonia. 8. History of asthma. 9. Thrombocytopenia. CONSULTANTS: Dr. Gomez with Pulmonology. PROCEDURES: None. HISTORY: Per HPI. HOSPITAL COURSE: This is a 63-year-old female, who presented to the ER with complaints of abdominal pain and generalized weakness. She was noted to have leukocytosis with a white count of 12.58. She was afebrile. She was started on IV antibiotics b.i.d. CT of abdomen and pelvis showed no bowel dilation or evidence of obstruction with cirrhotic liver and small bilateral pleural effusion due to atelectasis. Chest x-ray showed no focal pneumonia or pulmonary edema. She was resumed on her home medications. Abdominal ultrasound was done to check for ascites and possible paracentesis to rule out SBP, but ultrasound showed no ascites present in all four quadrants. Today, she is afebrile. Abdominal pain is improved, we will discharge home to follow up with her PCP in 1 to 2 weeks. PHYSICAL EXAMINATION: VITAL SIGNS: Temperature 98.1, pulse is 68, respirations 18, blood pressure 128/82, pulse ox is 96 on room air. GENERAL: Fatigue. HEENT: Normocephalic, atraumatic. NECK: Supple. LUNGS: Decreased breath sounds. CARDIOVASCULAR: Regular rate and rhythm. GI: Soft and nontender. NEUROLOGIC: Alert, awake, and oriented x3. MUSCULOSKELETAL: Moves all extremities. SKIN: Dry. PSYCH: Calm. CONDITION AT DISCHARGE: Stable and improved. DC medications. See medication reconciliation list. The patient would receive 40 mg of lactulose for her ammonia level of 59 and advised to increase her dose to four times a day. Follow up with PCP and glost tile shader. Total discharge time is 32 minutes. Dictated by KATERYNA Corey Tess Pradhan MD MY/MODL /[id number] cc: Dr. Dandy [facility]onso [facility]
== END 2019-07-21 13:46 | disposition home or self-care (01) | DRG 433 ==
LOC: ER 14:56 → ERHOLD 18:44 → MED/SURG3 21:56
PROVIDERS: ADMIT Internal Medicine; ATTEND Internal Medicine
DX: K74.69 Other cirrhosis of liver (principal); K76.6 Portal hypertension; Z68.41 Body mass index [BMI] 40.0-44.9, adult; D69.6 Thrombocytopenia, unspecified; B18.2 Chronic viral hepatitis C; E11.65 Type 2 diabetes mellitus with hyperglycemia; I10 Essential (primary) hypertension; E03.9 Hypothyroidism, unspecified; E66.01 Morbid (severe) obesity due to excess calories; J45.909 Unspecified asthma, uncomplicated; Z87.891 Personal history of nicotine dependence
CPT/HCPCS: 36415; 71045; 74177; 76705; 80048; 80053; 81001; 82140; 82550; 82553; 82948; 83735; 83880; 84100; 84484; 85025; 85610; 85730; 87040; 87086; 93005; 94640; 99284; J1815; J1817; J7030; Q9967

== ENCOUNTER 2019-09-20 21:24 | Inpatient (IN) | payer MEDICARE ==
[~2019-09-20] VITALS: Ht 157.5 cm; Wt 102.6 kg
[2019-09-20] MEDS ORDERED: ONDANSETRON HCL INJ 2MG/ML 2ML 2 MG/ML VIAL IV STA (21:31)
[2019-09-20] MEDS ORDERED: ACETAMINOPHEN 325 MG TAB PO ONE (21:45)
[2019-09-20] MEDS ORDERED: LEVOFLOXACIN 500MG/D5W 100ML 100 ML IV ONE (21:45)
[2019-09-20 21:49] LABS: BASOPHILS # (AUTO) 0.1 (0.0-0.1); BASOPHILS % 0.4 % (0.0-1.0); EOSINOPHILS # (AUTO) 0.1 (0.0-0.4); EOSINOPHILS % 0.5 % (0.0-6.0); HEMATOCRIT 38.4 % (34.2-44.1); LYMPHOCYTES # (AUTO) 0.6 (1.0-3.2); LYMPHOCYTES % 4.3 % (18.0-39.1); MEAN CORPUSCULAR HEMOGLOBIN 33.8 pg (28-32); MEAN CORPUSCULAR HGB CONC 33.9 g/dL (31-35); MEAN CORPUSCULAR VOLUME 99.7 fL (81-99); MONOCYTES # (AUTO) 1.3 (0.2-0.8); MONOCYTES % 8.9 % (4.4-11.3); NEUTROPHILS # (AUTO) 12.1 (2.1-6.9); NEUTROPHILS % 85.2 % (38.7-80.0); RED BLOOD COUNT 3.85 x10e6/uL (3.6-5.1)
[2019-09-20 21:53] LABS: PLATELET COUNT 82 x10e3/uL (140-360)
[2019-09-20 21:59] LABS: INR 1.57; PROTHROMBIN TIME 19.9 seconds (11.9-14.5)
[2019-09-20 22:00] LABS: PARTIAL THROMBOPLASTIN TIME 35.4 seconds (23.8-35.5)
[2019-09-20] MEDS: SODIUM CHLORIDE 0.9% 1000ML 1,000 ML IV SCH (22:02)
[2019-09-20 22:09] LABS: ALANINE AMINOTRANSFERASE 34 IU/L (0-55); ALBUMIN 2.2 g/dL (3.5-5.0); ALBUMIN/GLOBULIN RATIO 0.5 (0.8-2.0); ALKALINE PHOSPHATASE 315 IU/L (40-150); AMYLASE 33 U/L (25-125); ANION GAP 11.2 mmol/L (8-16); BLOOD UREA NITROGEN 14 mg/dL (7-26); BUN/CREATININE RATIO 10 (6-25); CALCIUM 9.1 mg/dL (8.4-10.2); CARBON DIOXIDE 27 mmol/L (22-29); CHLORIDE 100 mmol/L (98-107); CREATINE KINASE 76 IU/L (29-168); CREATININE, SERUM 1.44 mg/dL (0.57-1.11); EST GLOMERULAR FILTRATION RATE 36 ML/MIN (60-); GLUCOSE 394 mg/dL (74-118); LIPASE 16 U/L (8-78); POTASSIUM 3.2 mmol/L (3.5-5.1); SODIUM 135 mmol/L (136-145)
--- NOTE | 2019-09-20 22:09 | Diagnostic Imaging Report ---
EXAMINATION: CHEST SINGLE (PORTABLE) INDICATION: ^fever ^[id number] ^2139 ^Y COMPARISON: None FINDINGS: AP view TUBES and LINES: None. LUNGS: Lungs are well inflated. Lungs are clear. There is no evidence of pneumonia or pulmonary edema. PLEURA: No pleural effusion or pneumothorax. HEART AND MEDIASTINUM: The cardiomediastinal silhouette is unremarkable. BONES AND SOFT TISSUES: No acute osseous lesion. Soft tissues are unremarkable. UPPER ABDOMEN: No free air under the diaphragm. IMPRESSION: No acute thoracic radiographic abnormality. Signed by: Fortunato Donnelly MD on 09/20/2019 10:06 PM
[2019-09-20] MEDS ORDERED: DIATRIZOATE MEGL/DIATRIZOA SOD 30 ML BTL PO ONE (22:34)
[2019-09-20] MEDS ORDERED: METHYLPREDNISOLONE SOD SUCC 125 MG/2ML VIAL ONE (23:28)
--- NOTE | 2019-09-20 23:31 | NUR ---
Patient was taken to radiology for CT Abdomen via stretcher.
[2019-09-20 23:44] LABS: CLARITY,URINE CLOUDY (CLEAR); COLOR,URINE ORANGE (YELLOW)
[2019-09-20 23:45] LABS: BILIRUBIN,URINE MODERATE (NEGATIVE); KETONES,URINE NEGATIVE (NEGATIVE); LEUKOCYTE ESTERASE ,URINE NEGATIVE (NEGATIVE); NITRITE,URINE POSITIVE (NEGATIVE); PROTEIN,URINE DIPSTICK TRACE (NEGATIVE)
[2019-09-20 23:49] LABS: WBC,URINE (MAN) >50 /HPF (0-5)
[2019-09-20 23:50] LABS: BACTERIA,URINE MANY /HPF; EPITHELIAL CELLS,URINE MANY /LPF
[2019-09-21] VITALS (8 sets, daily range): BP systolic 101–132; BP diastolic 53–73
--- NOTE | 2019-09-21 00:11 | Diagnostic Imaging Report ---
EXAM: CT Abdomen and Pelvis WITHOUT contrast INDICATION: ^llq pian, fever ^[id number] ^2325 ^Y COMPARISON: None. TECHNIQUE: Abdomen and pelvis were scanned utilizing a multidetector helical scanner from the lung base to the pubic symphysis without administration of IV contrast. Absence of intravenous contrast decreases sensitivity for detection of focal lesions and vascular pathology. Coronal and sagittal reformations were obtained. Routine protocol was performed. IV CONTRAST: None ORAL CONTRAST: None COMPLICATIONS: None RADIATION DOSE: Total DLP: 962 mGy*cm Estimated effective dose: (DLP x 0.015 x size factor) mSv CTDIvol has been reviewed. It is below the limits set by the Radiation Protocol Committee (RPC). Dose modulation, iterative reconstruction, and/or weight based adjustment of the mA/kV was utilized to reduce the radiation dose to as low as reasonably achievable. FINDINGS: LINES and TUBES: None. LOWER THORAX: Bilateral pleural effusions, moderate right and small left. Coronary artery calcifications. HEPATOBILIARY: Subtly nodular contour of the liver. No gross hepatic lesion. No focal hepatic lesions. No biliary ductal dilation. The umbilical vein is prominent and may be recanalized. GALLBLADDER: Surgically absent. SPLEEN: The spleen is at the upper limit of normal in size and measures up to 13 cm in AP dimension. PANCREAS: No focal masses or ductal dilatation. ADRENALS: No adrenal nodules KIDNEYS/URETERS: No hydronephrosis. No cystic or solid mass lesions. Punctate left intrarenal calculus. GI TRACT: Suboptimally evaluated due to lack of intravenous and oral contrast. Suggestion of a short segment loop of thickened jejunum (image 29 series 2). This segment of bowel measures up to 3.5 cm in caliber. Mild colonic diverticulosis. PELVIC ORGANS/BLADDER: Grossly unremarkable. LYMPH NODES: No gross adenopathy. VESSELS: Scattered vascular calcifications. Suboptimally evaluated due to lack of intravenous contrast. Prominent vessels within the left abdomen near the left renal vein and spleen suggestive of a splenorenal shunt. PERITONEUM / RETROPERITONEUM: Trace amount of free fluid in the deep pelvis. Mild nonspecific mesenteric fat stranding. BONES: No acute osseous abnormalities. SOFT TISSUES: Mild soft tissue fat stranding. IMPRESSION: 1. Substantially limited study due to lack of intravenous and oral contrast enhancement. 2. Suggestion of a short segment loop of thickened jejunum within the abdominal left upper quadrant. Differential considerations include focal enteritis, focal intussusception, and malignancy. A more sensitive imaging evaluation may be obtained with CT imaging utilizing intravenous and oral contrast. 3. Cirrhotic morphology of the liver. Suggestion of portal hypertension as illustrated by probable recanalization of the umbilical vein and a probable prominent splenorenal shunt. 4. Volume overload as characterized by bilateral pleural effusions, trace ascites, and mild soft tissue edema. Signed by: Fortunato Donnelly MD on 09/21/2019 12:08 AM
[2019-09-21] MEDS ORDERED: SODIUM CHLORIDE 0.9% 1000ML 1,000 ML IV ONE (00:30)
[2019-09-21] MEDS ORDERED: DEXTROSE 50% SYRINGE 50 ML IV PRN (00:30)
[2019-09-21] MEDS ORDERED: ONDANSETRON HCL INJ 2MG/ML 2ML 2 MG/ML VIAL IV PRN ×2 (00:30→13:00)
[2019-09-21] MEDS: CEFTRIAXONE SOD 1 GM/NS 50 ML 50 ML IV SCH (00:58)
[2019-09-21] MEDS: INSULIN REGULAR, HUMAN 100 UNIT/1 ML 3ML VIAL SQ SCH ×2 (01:32→12:03)
--- NOTE | 2019-09-21 02:02 | NUR ---
PATIENT TEMP. 98.7 PRIOR TO ADMISSION AT 0150.
[2019-09-21] MEDS: SODIUM CHLORIDE 0.9% 1000ML 1,000 ML IV SCH (08:11)
[2019-09-21 12:31] LABS: ANION GAP 8.8 mmol/L (8-16); CALCIUM 8.6 mg/dL (8.4-10.2); CREATININE, SERUM 1.47 mg/dL (0.57-1.11); POTASSIUM 3.8 mmol/L (3.5-5.1)
[2019-09-21] MEDS: INSULIN LISPRO 100 UNIT/1 ML 3ML VIAL SQ SCH ×2 (15:57→21:00)
[2019-09-21] MEDS: LACTULOSE SYRUP 20 GM/30 ML UDC PO SCH ×2 (15:57→21:00)
[2019-09-21] MEDS: RIFAXIMIN 550 MG TABLET PO SCH (16:05)
[2019-09-21] MEDS: PROPRANOLOL HCL 10 MG TAB PO SCH (16:56)
[2019-09-22] VITALS (8 sets, daily range): BP systolic 108–141; BP diastolic 53–77
[2019-09-22] MEDS: CEFTRIAXONE SOD 1 GM/NS 50 ML 50 ML IV SCH (00:30)
[2019-09-22] MEDS: HEPARIN SOD (PORCINE) 5,000 UNIT/ML VIAL SC SCH ×2 (02:29→09:23)
[2019-09-22 05:25] LABS: BASOPHILS # (AUTO) 0.1 (0.0-0.1); BASOPHILS % 0.7 % (0.0-1.0); EOSINOPHILS # (AUTO) 0.4 (0.0-0.4); EOSINOPHILS % 4.5 % (0.0-6.0); HEMATOCRIT 37.5 % (34.2-44.1); HEMOGLOBIN 12.5 g/dL (12.0-16.0); LYMPHOCYTES # (AUTO) 1.9 (1.0-3.2); LYMPHOCYTES % 22.3 % (18.0-39.1); MEAN CORPUSCULAR HEMOGLOBIN 33.5 pg (28-32); MEAN CORPUSCULAR HGB CONC 33.3 g/dL (31-35); MEAN CORPUSCULAR VOLUME 100.5 fL (81-99); MONOCYTES % 11.4 % (4.4-11.3); NEUTROPHILS % 59.9 % (38.7-80.0); PLATELET COUNT 75 x10e3/uL (140-360); RED BLOOD COUNT 3.73 x10e6/uL (3.6-5.1)
[2019-09-22 05:47] LABS: ALBUMIN 1.9 g/dL (3.5-5.0); ALBUMIN/GLOBULIN RATIO 0.5 (0.8-2.0); CALCIUM 8.7 mg/dL (8.4-10.2); CREATININE, SERUM 1.29 mg/dL (0.57-1.11); POTASSIUM 3.4 mmol/L (3.5-5.1)
[2019-09-22 05:48] LABS: ANION GAP 5.4 mmol/L (8-16)
[2019-09-22] MEDS: LEVOTHYROXINE SODIUM 125 MCG TAB PO SCH (06:00)
--- NOTE | 2019-09-22 07:04 | NUR ---
BEDSIDE SHIFT REPORT RECEIVED FROM PM NURSE, PT IN STABLE CONDITION. WILL CONTINUE TO MONITOR.
[2019-09-22] MEDS: INSULIN LISPRO 100 UNIT/1 ML 3ML VIAL SQ SCH ×4 (08:27→21:00)
[2019-09-22] MEDS: PROPRANOLOL HCL 10 MG TAB PO SCH ×2 (08:58→18:26)
[2019-09-22] MEDS: PANTOPRAZOLE SOD 40 MG TABEC PO SCH (08:58)
[2019-09-22] MEDS: RIFAXIMIN 550 MG TABLET PO SCH ×2 (08:59→18:27)
[2019-09-22] MEDS: LACTULOSE SYRUP 20 GM/30 ML UDC PO SCH ×2 (08:59→15:00)
[2019-09-22] MEDS ORDERED: LACTATED RINGER'S 500 ML IV ONE ×2 (10:00)
[2019-09-22] MEDS ORDERED: DIATRIZOATE MEGL/DIATRIZOA SOD 30 ML BTL PO ONE (11:19)
[2019-09-22] MEDS ORDERED: SODIUM CHLORIDE 0.9% 250ML 250 ML ONE (11:19)
[2019-09-22] MEDS ORDERED: LIDOCAINE HCL 1% LOCAL INJ 20 ML VIAL ONE (11:19)
[2019-09-22] MEDS ORDERED: IOPAMIDOL 370 MG/ML 200 ML INFUS..BTL INJ ONE (12:01)
[2019-09-22] MEDS ORDERED: SODIUM CHLORIDE 0.9% 50ML 50 ML ONE (12:01)
[2019-09-22] MEDS ORDERED: POTASSIUM CHLORIDE 20 MEQ TAB CR PO ONE (15:00)
[2019-09-22] MEDS ORDERED: VANCOMYCIN 1GM/NS 250 ML 250 ML IV ONE (15:00)
[2019-09-22] MEDS: INSULIN GLARGINE 100 UNITS/ML VIAL SQ SCH (16:20)
--- NOTE | 2019-09-22 16:38 | Diagnostic Imaging Report ---
EXAM: CT Abdomen and Pelvis WITH intravenous contrast INDICATION: Fever, abdominal pain COMPARISON: CT abdomen and pelvis of 09/20/2019 TECHNIQUE: Abdomen and pelvis were scanned utilizing a multidetector helical scanner from the lung base to the pubic symphysis after administration of IV contrast. Coronal and sagittal reformations were obtained. Routine protocol was performed. Scan was performed during portal venous phase. IV CONTRAST: 100mL of Isovue 370 ORAL CONTRAST: Gastrografin RADIATION DOSE: Total DLP: 797 mGy*cm Dose modulation, iterative reconstruction, and/or weight based adjustment of the mA/kV was utilized to reduce the radiation dose to as low as reasonably achievable. FINDINGS: LOWER THORAX: Right and left lower lobe dependent subsegmental atelectasis. Right greater than left small bilateral pleural effusions. HEPATOBILIARY: Nodular liver surface contour compatible with hepatic cirrhosis. Extensive left abdominal portosystemic varices including a very large splenorenal shunt. Hepatic steatosis. No biliary ductal dilation. Status post cholecystectomy. SPLEEN: No splenomegaly. PANCREAS: No focal masses or ductal dilatation. ADRENALS: No adrenal nodules. KIDNEYS/URETERS: No hydronephrosis, stones, or solid mass lesions. PELVIC ORGANS/BLADDER: Unremarkable. PERITONEUM / RETROPERITONEUM: No free air or fluid. LYMPH NODES: No lymphadenopathy. VESSELS: Moderate atherosclerotic calcifications of the nonaneurysmal abdominal aorta and major branches. GI TRACT: No abnormal bowel thickening. No bowel obstruction. BONES AND SOFT TISSUES: No acute osseous injury. No suspicious lytic or blastic lesions. Mild diffuse subcutaneous soft tissue edema. IMPRESSION: Hepatic cirrhosis and sequela of portal hypertension including a very prominent portosystemic splenorenal shunt. No abnormal bowel thickening or bowel obstruction. No intra-abdominal abscess. Small bilateral pleural effusions. Signed by: Zohaib Haque MD on 09/22/2019 4:35 PM
--- NOTE | 2019-09-22 19:29 | NUR ---
Patient received lying in bed. AAO x 3. Patient had no complaints of pain. Respirations even and unlabored on 2L NC. Safety measures in place. Patient instructed to call for assistance when needed. Call light within reach.
[2019-09-22] MEDS: METRONIDAZOLE 500MG/NS 100ML 100 ML IV SCH (22:10)
[2019-09-23 00:12] VITALS: BP 130/62
[2019-09-23] MEDS: METRONIDAZOLE 500MG/NS 100ML 100 ML IV SCH ×2 (02:37→09:00)
[2019-09-23 04:00] VITALS: BP 131/61
[2019-09-23] MEDS: LEVOTHYROXINE SODIUM 125 MCG TAB PO SCH (05:28)
[2019-09-23 05:48] LABS: ANION GAP 6.2 mmol/L (8-16); CALCIUM 8.8 mg/dL (8.4-10.2); CREATININE, SERUM 1.04 mg/dL (0.57-1.11); POTASSIUM 4.2 mmol/L (3.5-5.1)
--- NOTE | 2019-09-23 06:46 | NUR ---
Walking rounds done. Shift report given to oncoming nurse regarding patient's status.
[2019-09-23] MEDS: INSULIN LISPRO 100 UNIT/1 ML 3ML VIAL SQ SCH ×2 (07:30→11:59)
[2019-09-23] MEDS: ALBUTEROL/IPRATROPIUM 3 ML NEB NEB PRN ×2 (07:47→10:52)
[2019-09-23 07:49] VITALS: BP 135/63
[2019-09-23 08:09] VITALS: BP 135/63
[2019-09-23] MEDS: PANTOPRAZOLE SOD 40 MG TABEC PO SCH (08:45)
[2019-09-23] MEDS: RIFAXIMIN 550 MG TABLET PO SCH (08:45)
[2019-09-23] MEDS: INSULIN GLARGINE 100 UNITS/ML VIAL SQ SCH (08:45)
--- NOTE | 2019-09-23 10:28 | Diagnostic Imaging Report ---
X-ray chest AP portable Comparison: 09/20/2019 History: Chest pain. Shortness of breath. Findings: Central airways unremarkable. Cardiomegaly. Atherosclerotic aorta. No definite pleural effusion. No pneumothorax. There is poor inspiratory effort that leads to crowding of pulmonary vascular markings. Otherwise, there is no focal airspace or interstitial disease or lung nodules. No acute skeletal changes visualized. Impression: No acute cardiopulmonary disease. Signed by: Godwin Valencia MD on 09/23/2019 10:24 AM
[2019-09-23 12:00] VITALS: BP 118/63
--- NOTE | 2019-09-23 15:25 | Discharge Summary ---
PRIMARY CARE DOCTOR: Dr. Yoandy Dorman. FINAL DIAGNOSIS: Sepsis present on admission due to enteritis . SECONDARY DIAGNOSES: 1. Acute kidney injury, resolving. 2. Staph aureus in urine of unclear significance. 3. Cirrhosis. 4. Diabetes. 5. Morbid obesity. CONSULTANTS: None. PROCEDURES/STUDIES PERFORMED: CT of the abdomen and pelvis. HISTORY: Per H and P. HOSPITAL COURSE: The patient was admitted with low-grade fever and abdominal pain. Initial CT with no contrast shows enteritis. Empirically, the patient was on Rocephin and Flagyl. The patient did well once her acute kidney injury resolved. A CT of the abdomen and pelvis with contrast was done, which was normal. The patient's urine culture shows Staph aureus, which is sensitive to Rocephin. She also got a dose of IV vancomycin as well. The urinalysis from the urine culture has many epithelial cells, so potentially a clean-catch. Her thrombocytopenia and coagulopathy are stable, which are due to her cirrhosis. The patient was seen and examined today. It took 32 minutes total to discharge this patient. CONDITION ON DISCHARGE: Improved. DISCHARGE MEDICATIONS: Please see medication reconciliation form. Yiching MD NIURKA Sumner/NICHOLE /[id number] cc: [facility]
--- NOTE | 2019-09-23 16:00 | NUR ---
Discharge instructions and prescription given to the patient. She verbalized understanding. IV to the left AC was removed with tip intact.
[2019-09-23 16:16] VITALS: BP 117/55
== END 2019-09-23 16:52 | disposition home or self-care (01) | DRG 872 ==
LOC: ER 21:24 → ERHOLD 09-21 00:20 → MED/SURG2 09-21 02:15
PROVIDERS: ADMIT Internal Medicine; ATTEND Internal Medicine
DX: A41.9 Sepsis, unspecified organism (principal); N17.9 Acute kidney failure, unspecified; Z68.41 Body mass index [BMI] 40.0-44.9, adult; R65.20 Severe sepsis without septic shock; K74.60 Unspecified cirrhosis of liver; E11.9 Type 2 diabetes mellitus without complications; E66.01 Morbid (severe) obesity due to excess calories; B95.61 Methicillin susceptible Staphylococcus aureus infection as the cause of diseases classified elsewhere; I10 Essential (primary) hypertension; J45.909 Unspecified asthma, uncomplicated; E03.9 Hypothyroidism, unspecified; K21.9 Gastro-esophageal reflux disease without esophagitis; Z90.49 Acquired absence of other specified parts of digestive tract; Z83.3 Family history of diabetes mellitus; Z82.49 Family history of ischemic heart disease and other diseases of the circulatory system; B19.20 Unspecified viral hepatitis C without hepatic coma; Z87.891 Personal history of nicotine dependence; K52.9 Noninfective gastroenteritis and colitis, unspecified; Z79.4 Long term (current) use of insulin
CPT/HCPCS: 36415; 71045; 74176; 74177; 80048; 80053; 81001; 82140; 82150; 82550; 82553; 82948; 83605; 83690; 83735; 84443; 84484; 85025; 85610; 85730; 87040; 87086; 87186; 93005; 94640; 99284; J0696; J1644; J1815; J1817; J1956; J2001; J2405; J2930; J3370; J7030; J7050; J7120; J7121; Q9967

== ENCOUNTER 2019-09-25 09:33 | Inpatient (IN) | payer MEDICARE ==
[~2019-09-25] VITALS: Ht 157.5 cm; Wt 102.5 kg
[2019-09-25] MEDS ORDERED: PIPER-TAZ 3.375 GM 50 ML IV STA (10:24)
[2019-09-25] MEDS ORDERED: METRONIDAZOLE 500MG/NS 100ML 100 ML IV STA (10:24)
[2019-09-25] MEDS ORDERED: SODIUM CHLORIDE FLUSH 10 ML SYR INJ PRN (10:30)
[2019-09-25] MEDS ORDERED: ALBUTEROL/IPRATROPIUM 3 ML NEB NEB NR (10:45)
--- NOTE | 2019-09-25 11:16 | NUR ---
UNABLE TO OBTAIN A URINE SAMPLE AT THIS TIME PATIENT STATES THAT SHE IS UNABLE TO URINATE.
--- NOTE | 2019-09-25 11:31 | Diagnostic Imaging Report ---
Examination: Single AP view of the chest. COMPARISON: Portable chest 09/23/2019 INDICATION: Shortness of breath IMPRESSION: 1. Lines and Tubes: None 2. Lungs are well-inflated. Blunting of the left costophrenic sulcus with obscuration of the right hemidiaphragm and right lower lobe opacity, consistent with pleural effusion and likely associated atelectasis or consolidation. 3. Cardiomediastinal silhouette is normal. Central pulmonary venous congestion and mild perihilar interstitial edema. 4. No acute bony abnormalities. Signed by: Dr. Mike Dumont M.D. on 09/25/2019 11:28 AM
[2019-09-25 11:34] LABS: BASOPHILS % 0.6 % (0.0-1.0); EOSINOPHILS # (AUTO) 0.4 (0.0-0.4); EOSINOPHILS % 7.6 % (0.0-6.0); HEMATOCRIT 37.4 % (34.2-44.1); HEMOGLOBIN 12.4 g/dL (12.0-16.0); LYMPHOCYTES # (AUTO) 1.8 (1.0-3.2); MEAN CORPUSCULAR HEMOGLOBIN 33.8 pg (28-32); MEAN CORPUSCULAR HGB CONC 33.2 g/dL (31-35); MEAN CORPUSCULAR VOLUME 101.9 fL (81-99); MONOCYTES # (AUTO) 0.8 (0.2-0.8); MONOCYTES % 14.2 % (4.4-11.3); NEUTROPHILS # (AUTO) 2.3 (2.1-6.9); NEUTROPHILS % 43.1 % (38.7-80.0); PLATELET COUNT 85 x10e3/uL (140-360); RED BLOOD COUNT 3.67 x10e6/uL (3.6-5.1); RED CELL DISTRIBUTION WIDTH 14.9 % (11.7-14.4)
[2019-09-25 11:55] LABS: ALANINE AMINOTRANSFERASE 33 IU/L (0-55); ALBUMIN 2.2 g/dL (3.5-5.0); ALBUMIN/GLOBULIN RATIO 0.5 (0.8-2.0); ALKALINE PHOSPHATASE 280 IU/L (40-150); ANION GAP 9.1 mmol/L (8-16); BLOOD UREA NITROGEN 11 mg/dL (7-26); BUN/CREATININE RATIO 10 (6-25); CALCIUM 9.2 mg/dL (8.4-10.2); CARBON DIOXIDE 29 mmol/L (22-29); CHLORIDE 105 mmol/L (98-107); CREATINE KINASE 65 IU/L (29-168); CREATININE, SERUM 1.08 mg/dL (0.57-1.11); EST GLOMERULAR FILTRATION RATE 51 ML/MIN (60-); GLUCOSE 304 mg/dL (74-118); LIPASE 31 U/L (8-78); POTASSIUM 4.1 mmol/L (3.5-5.1); SODIUM 139 mmol/L (136-145)
[2019-09-25 12:01] LABS: BILIRUBIN,URINE NEGATIVE (NEGATIVE); CLARITY,URINE CLEAR (CLEAR); COLOR,URINE YELLOW (YELLOW); KETONES,URINE NEGATIVE (NEGATIVE); LEUKOCYTE ESTERASE ,URINE NEGATIVE (NEGATIVE); NITRITE,URINE NEGATIVE (NEGATIVE); PROTEIN,URINE DIPSTICK NEGATIVE (NEGATIVE); URINE UROBILINOGEN 0.2 mg/dL (0.2 - 1)
[2019-09-25 12:08] LABS: BACTERIA,URINE FEW /HPF; EPITHELIAL CELLS,URINE FEW /LPF; RBC,URINE 0-5 /HPF (0-5); WBC,URINE (MAN) 0-5 /HPF (0-5)
[2019-09-25] MEDS ORDERED: SODIUM CHLORIDE 0.9% 500ML 500 ML IV STA (12:10)
[2019-09-25] MEDS ORDERED: ALBUMIN 25% 25GM 100ML 0.25 GM/ML BTL IV NR (13:00)
--- NOTE | 2019-09-25 14:22 | Diagnostic Imaging Report ---
EXAMINATION: CT of the chest with contrast, PE protocol. TECHNIQUE: Spiral CT images of the chest were performed from the lung apices through the level of the adrenal glands after the IV administration of 100 cc of Isovue 370. Thin section reconstructions were obtained with special concentration on the pulmonary arteries. Coronal and sagittal reformatted images were also performed. COMPARISON: CT chest 07/13/2019 CLINICAL HISTORY:Shortness of breath DISCUSSION: Lungs: No filling defects are identified in the main, right or left pulmonary arteries to their segmental levels, to suggest pulmonary embolism. Interval worsening of right lower lobe compressive atelectasis. Interval development of right middle lobe wedge-shaped consolidation, likely reflecting compressive atelectasis. Stable compressive atelectasis of the left lower lobe. Aerated portions of the lungs show no nodules or masses. Airways are clear, without any endobronchial lesions. Pleura: Interval worsening of right pleural effusion, which is now moderate. Stable small left pleural effusion. Heart and mediastinum: Comparison unremarkable. Heart size is normal. Atherosclerotic calcification of the mitral annulus and thoracic aortic arch. No pericardial effusion. Aorta is nonaneurysmal. Main pulmonary artery is enlarged, measuring 3.2 cm. Lymph nodes: No mediastinal, hilar or axillary adenopathy. Abdomen: Please see CT abdomen and pelvis performed same date for further detail. Bones and soft tissues: No aggressive lytic lesion. Soft tissue edema. No interval change in bilateral breasts mild skin thickening. No focal masses are noted. Stable 3-4 mm calcification in the right breast, which may represent a calcified fibroadenoma. IMPRESSION: 1. No pulmonary emboli to the segmental level. 2. Interval worsening of right pleural effusion, which is now moderate, which results in worse right lower lobe and new right middle lobe compressive atelectasis. 3. Stable left pleural effusion and associated compressive atelectasis of the left lower lobe. 4. Enlargement pulmonary arteries suggesting pulmonary hypertension. 5. No interval change in bilateral breast skin thickening. Correlate with mammography. Signed by: Dr. Mike Dumont M.D. on 09/25/2019 2:19 PM
--- NOTE | 2019-09-25 14:34 | Diagnostic Imaging Report ---
EXAMINATION: CT of the abdomen and pelvis with contrast. TECHNIQUE: Spiral CT images of the abdomen and pelvis were performed from the lung bases to the lesser trochanters after the intravenous administration of 100 cc of Isovue 370 and the oral administration of water. Coronal and sagittal reformatted images were obtained. COMPARISON: CT abdomen and pelvis 09/22/2019, 09/20/2019, 07/19/2019 CLINICAL HISTORY:Abdominal distention DISCUSSION: ABDOMEN/PELVIS: LOWER THORAX:Please see CT chest performed same date for further detail. HEPATOBILIARY: Shrunken nodular liver consistent with cirrhosis. No focal lesions. No intra or extrahepatic biliary ductal dilation. GALLBLADDER: Cholecystectomy clips. SPLEEN: No splenomegaly. PANCREAS: No focal masses or ductal dilatation. ADRENALS: No adrenal nodules. KIDNEYS/URETERS: No hydronephrosis, stones, or solid mass lesions. PELVIC ORGANS/BLADDER: Bladder is unremarkable. Uterus is unremarkable. No adnexal masses. PERITONEUM/RETROPERITONEUM: Slight interval increase in pelvic ascites. A small amount of free fluid is noted along the mesenteric leaves (for example series 6, image 49) LYMPH NODES: No intra-abdominal, retroperitoneal, pelvic or inguinal lymphadenopathy. VESSELS: The celiac trunk,superior and inferior mesenteric and bilateral renal arteries are patent The portal, superior mesenteric and splenic veins are patent. Collateral circulation in the form of a recanalized umbilical vein as well as a splenorenal shunt. GI TRACT: No bowel dilation or evidence of obstruction. No pericolonic inflammatory changes. BONES AND SOFT TISSUE: No aggressive lytic lesions. Generalized anasarca, which is increased since the prior exam. IMPRESSION: 1. No bowel dilation or evidence of obstruction. 2. Cirrhotic liver with evidence of portal hypertension. Slight interval increase in ascites and worsening generalized soft tissue edema. No focal hepatic lesions. 3. Please note that this is the patient's third CT abdomen and pelvis since 09/20/2019, and the fourth exam since 07/19/2019 for same symptoms. Signed by: Dr. Mike Dumont M.D. on 09/25/2019 2:30 PM
[2019-09-25] MEDS ORDERED: FUROSEMIDE INJ 10 MG/ML 4 ML VIAL IV NR (15:15)
[2019-09-25 15:22] LABS: INR 1.49
[2019-09-25] MEDS ORDERED: ALBUTEROL/IPRATROPIUM 3 ML NEB NEB STA (15:28)
[2019-09-25] MEDS ORDERED: ONDANSETRON HCL INJ 2MG/ML 2ML 2 MG/ML VIAL IV PRN (15:30)
[2019-09-25] MEDS ORDERED: SPIRONOLACTONE 25 MG TAB PO SCH (15:45)
--- NOTE | 2019-09-25 16:23 | NUR ---
REPORT ATTEMPTED WAS TOLD THAT NURSE WOULD CALL BACK.
--- NOTE | 2019-09-25 16:30 | NUR ---
RCD PT FROM ER BY BED PT IS ALERT AND ORIENTED VITALS CHECKED PT RESTING ON BED IV PATENT BY SALINE FLUSH ADMISSION ASSESSMENT AND HISTORY DONE INSTRUCTED THE PT REGARDING VISITOR POLICY AND HOSPITAL ROUTINE BED LOW AND LOCKED CALL LIGHT IN REACH
[2019-09-25] MEDS: FUROSEMIDE 20 MG TAB PO SCH (16:40)
[2019-09-25] MEDS: SPIRONOLACTONE 25 MG TAB PO SCH (16:40)
[2019-09-25] MEDS: INSULIN GLARGINE 100 UNITS/ML VIAL SQ SCH (16:54)
[2019-09-25] MEDS: INSULIN LISPRO 100 UNIT/1 ML 3ML VIAL SQ SCH ×2 (16:54→21:00)
[2019-09-25] MEDS: RIFAXIMIN 550 MG TABLET PO SCH (16:55)
[2019-09-25 17:19] VITALS: BP 157/66
[2019-09-25] MEDS ORDERED: SODIUM CHLORIDE 0.9% 50ML 50 ML ONE (17:28)
[2019-09-25] MEDS ORDERED: IOPAMIDOL 370 MG/ML 200 ML INFUS..BTL INJ ONE (17:28)
[2019-09-25 17:44] VITALS: BP 157/66
--- NOTE | 2019-09-25 17:50 | History and Physical ---
PRIMARY CARE DOCTOR: Dr. Yoandy Dorman. CHIEF COMPLAINT: Abdominal distention and shortness of breath. HISTORY OF PRESENT ILLNESS: This is a 64-year-old woman, morbidly obese with hep C cirrhosis, who was just discharged by me 2 days ago. The patient came back in with abdominal distention and shortness of breath. The patient did get some IV fluids during her recent hospitalization. However, she has never had a paracentesis done before. The patient noticed her subcutaneous injection sight was leaking some fluid. The patient also has some nausea, but no fever and no abdominal pain per se. No chest pain. Denies any cough. PAST MEDICAL AND SURGICAL HISTORY: 1. Morbid obesity. 2. Diabetes. 3. Hypertension. 4. Hypothyroidism. 5. Hepatitis C cirrhosis. 6. Asthma. 7. Previous cholecystectomy. MEDICATIONS: Please see medication reconciliation form. ALLERGIES: NONE. SOCIAL HISTORY: No alcohol. FAMILY HISTORY: Diabetes. REVIEW OF SYSTEMS: A 10-point review of system obtained and nothing else is significant other than what is stated in HPI. PHYSICAL EXAMINATION: VITAL SIGNS: Temperature 97.2, pulse 67, respiratory rate 18, and blood pressure 149/64. GENERAL: No acute distress. SKIN: No rash. HEENT: Anicteric. Oropharynx is clear. LUNGS: Decreased breath sound on the right side. HEART: Regular rate and rhythm. Normal S1, S2. GI: Abdomen is soft, slightly distended. Nontender. : Deferred. MUSCULOSKELETAL: Painless range of motion in her joints. NEUROLOGIC: Alert and oriented x3. Cranial nerves II through XII grossly intact. PSYCHIATRIC: No hallucination. LABORATORY DATA: White count 5, hemoglobin 12, and platelet count 85. INR is 1.5. Creatinine 1.08. Sugar 304. Total bilirubin is 3.8. UA is benign. CT of the chest, abdomen, and pelvis noted. ASSESSMENT AND PLAN: 1. Abdominal distention, more so with abdominal wall edema than ascites. We will avoid IV diuresis to decrease the chance of hepatorenal syndrome. We will start off with Aldactone 50 mg daily and Lasix 20 mg daily. I will monitor her creatinine, potassium, and magnesium. 2. Right-sided pleural effusion. Again, we will attempt p.o. diuresis. Also, we will start nebulizer treatment. 3. Hypothyroidism. We will continue her levothyroxine. 4. Diabetes with hyperglycemia. We will start Lantus with sliding scale. 5. Morbid obesity. 6. Pulmonary hypertension. 7. Cirrhosis with coagulopathy and thrombocytopenia at baseline. 8. Gastrointestinal and deep venous thrombosis prophylaxis. No chemical deep venous thrombosis prophylaxis due to coagulopathy and thrombocytopenia; however, we will start physical therapy evaluation. Yiching MD NIURKA Sumner/NICHOLE /[id number]
--- NOTE | 2019-09-25 18:41 | NUR ---
PT RESTING ON BED BED SIDE REPORT GIVEN TO ONCOMING NURSE
--- NOTE | 2019-09-25 18:47 | NUR ---
PT RESTING ON BED BED SIDE REPORT GIVEN TO ONCOMING NURSE
--- NOTE | 2019-09-25 19:20 | NUR ---
received report from day nurse. patient is resting comfortably in the bed. bed is in lowest position and call light is within reach. will continue to monitor patient.
[2019-09-25] MEDS ORDERED: ALBUTEROL/IPRATROPIUM 3 ML NEB NEB PRN (19:30)
--- NOTE | 2019-09-25 19:33 | NUR ---
patient is complaining of feeling short of breath. Assessment reveals O2 sat at 98%, patient has been put on 2L of oxygen. MD notified, received new orders for duonebs Q4 hours as needed for shortness of breath. will continue to monitor patients breathing.
[2019-09-25] MEDS: ALBUTEROL/IPRATROPIUM 3 ML NEB NEB SCH (19:55)
[2019-09-25 20:00] VITALS: BP 136/78
[2019-09-25 20:46] VITALS: BP 136/78
[2019-09-26] VITALS (8 sets, daily range): BP systolic 117–140; BP diastolic 50–81
[2019-09-26 05:24] LABS: BASOPHILS % 0.6 % (0.0-1.0); EOSINOPHILS # (AUTO) 0.4 (0.0-0.4); EOSINOPHILS % 7.8 % (0.0-6.0); HEMATOCRIT 33.4 % (34.2-44.1); HEMOGLOBIN 11.3 g/dL (12.0-16.0); LYMPHOCYTES # (AUTO) 1.5 (1.0-3.2); LYMPHOCYTES % 30.6 % (18.0-39.1); MEAN CORPUSCULAR HEMOGLOBIN 34.3 pg (28-32); MEAN CORPUSCULAR HGB CONC 33.8 g/dL (31-35); MEAN CORPUSCULAR VOLUME 101.5 fL (81-99); MONOCYTES # (AUTO) 0.6 (0.2-0.8); MONOCYTES % 12.2 % (4.4-11.3); NEUTROPHILS # (AUTO) 2.4 (2.1-6.9); PLATELET COUNT 144 x10e3/uL (140-360); RED BLOOD COUNT 3.29 x10e6/uL (3.6-5.1); RED CELL DISTRIBUTION WIDTH 15.1 % (11.7-14.4)
[2019-09-26 05:49] LABS: ALANINE AMINOTRANSFERASE 28 IU/L (0-55); ALBUMIN 1.9 g/dL (3.5-5.0); ALBUMIN/GLOBULIN RATIO 0.5 (0.8-2.0); ALKALINE PHOSPHATASE 191 IU/L (40-150); ANION GAP 6.5 mmol/L (8-16); BLOOD UREA NITROGEN 8 mg/dL (7-26); BUN/CREATININE RATIO 9 (6-25); CALCIUM 8.2 mg/dL (8.4-10.2); CARBON DIOXIDE 27 mmol/L (22-29); CHLORIDE 109 mmol/L (98-107); CREATININE, SERUM 0.86 mg/dL (0.57-1.11); EST GLOMERULAR FILTRATION RATE > 60 ML/MIN (60-); GLUCOSE 184 mg/dL (74-118); POTASSIUM 3.5 mmol/L (3.5-5.1); SODIUM 139 mmol/L (136-145)
--- NOTE | 2019-09-26 06:26 | Diagnostic Imaging Report ---
EXAMINATION: CHEST SINGLE (PORTABLE) INDICATION: Shortness of breath COMPARISON: 09/25/2019 FINDINGS: AP view TUBES and LINES: None. LUNGS: Mildly increased perihilar interstitial opacities. Unchanged bibasilar consolidation, likely atelectasis. PLEURA: Unchanged bilateral pleural effusions, right greater than left. HEART AND MEDIASTINUM: Stable cardiomegaly. Fullness of the pulmonary vasculature. BONES AND SOFT TISSUES: No acute osseous lesion. Soft tissues are unremarkable. UPPER ABDOMEN: No free air under the diaphragm. IMPRESSION: Mild interval increase in perihilar interstitial edema. Unchanged bilateral lower lobe atelectasis. Unchanged bilateral pleural effusions, right greater than left. Stable cardiomegaly. Signed by: Fortunato Donnelly MD on 09/26/2019 6:23 AM
--- NOTE | 2019-09-26 06:43 | NUR ---
PATIENT IS RESTING COMFORTABLY IN THE BED. NO DISTRESS NOTED. CALL LYNCH IS WITHIN REACH.
--- NOTE | 2019-09-26 07:00 | NUR ---
Received bedside shift report from off going nurse. Patient in stable condition, no s/s of distress noted. No pain voiced. Oxygen applied at 4 lpm/NC. Patient on continuous pulse-ox. Telemetry applied and working. Bed in lowest position and locked. Call light within reach. All personal belongings within reach.
[2019-09-26] MEDS: INSULIN LISPRO 100 UNIT/1 ML 3ML VIAL SQ SCH ×5 (07:30→20:43)
[2019-09-26] MEDS: ALBUTEROL/IPRATROPIUM 3 ML NEB NEB SCH ×3 (07:33→20:05)
[2019-09-26] MEDS ORDERED: SPIRONOLACTONE 25 MG TAB PO SCH (09:00)
[2019-09-26] MEDS: FUROSEMIDE 20 MG TAB PO SCH (09:14)
[2019-09-26] MEDS: SPIRONOLACTONE 25 MG TAB PO SCH (09:14)
[2019-09-26] MEDS: LEVOTHYROXINE SODIUM 125 MCG TAB PO SCH (09:14)
[2019-09-26] MEDS: RIFAXIMIN 550 MG TABLET PO SCH ×2 (09:15→17:04)
[2019-09-26] MEDS: INSULIN GLARGINE 100 UNITS/ML VIAL SQ SCH (11:42)
[2019-09-26] MEDS ORDERED: SPIRONOLACTONE 25 MG TAB PO ONE (13:45)
[2019-09-26] MEDS ORDERED: FUROSEMIDE 20 MG TAB PO ONE (13:45)
--- NOTE | 2019-09-26 19:06 | NUR ---
Completed bedside shift report and rounding with oncoming nurse. Patient in stable condition, no s/s of distress noted. No pain voiced. Patient on continuous Pulse ox. Telemetry applied and working. Bed in lowest position and locked. Call light within reach. All personal belongings within reach.
[2019-09-27] VITALS (7 sets, daily range): BP systolic 118–137; BP diastolic 54–73
[2019-09-27 05:58] LABS: BASOPHILS % 0.8 % (0.0-1.0); EOSINOPHILS # (AUTO) 0.3 (0.0-0.4); EOSINOPHILS % 6.6 % (0.0-6.0); HEMATOCRIT 36.2 % (34.2-44.1); LYMPHOCYTES # (AUTO) 1.4 (1.0-3.2); LYMPHOCYTES % 26.8 % (18.0-39.1); MEAN CORPUSCULAR HEMOGLOBIN 33.8 pg (28-32); MEAN CORPUSCULAR HGB CONC 33.1 g/dL (31-35); MONOCYTES # (AUTO) 0.6 (0.2-0.8); MONOCYTES % 11.5 % (4.4-11.3); NEUTROPHILS # (AUTO) 2.8 (2.1-6.9); NEUTROPHILS % 53.7 % (38.7-80.0); PLATELET COUNT 79 x10e3/uL (140-360); RED BLOOD COUNT 3.55 x10e6/uL (3.6-5.1); RED CELL DISTRIBUTION WIDTH 14.8 % (11.7-14.4)
[2019-09-27 06:08] LABS: ANION GAP 8.2 mmol/L (8-16); BLOOD UREA NITROGEN 7 mg/dL (7-26); BUN/CREATININE RATIO 8 (6-25); CALCIUM 8.1 mg/dL (8.4-10.2); CARBON DIOXIDE 31 mmol/L (22-29); CHLORIDE 104 mmol/L (98-107); CREATININE, SERUM 0.87 mg/dL (0.57-1.11); EST GLOMERULAR FILTRATION RATE > 60 ML/MIN (60-); GLUCOSE 198 mg/dL (74-118); MAGNESIUM 1.4 MG/DL (1.3-2.1); POTASSIUM 3.2 mmol/L (3.5-5.1); SODIUM 140 mmol/L (136-145)
--- NOTE | 2019-09-27 06:41 | Diagnostic Imaging Report ---
EXAMINATION: CHEST SINGLE (PORTABLE) INDICATION: ^SOB ^[id number] ^[id number] COMPARISON: 09/26/2019 FINDINGS: AP view TUBES and LINES: None. LUNGS: Low lung volumes. Unchanged interstitial pulmonary edema. Unchanged bilateral lower lobe opacities, likely atelectasis. PLEURA: Unchanged bilateral pleural effusions, right greater than left. HEART AND MEDIASTINUM: Unchanged cardiomegaly. BONES AND SOFT TISSUES: No acute osseous lesion. Soft tissues are unremarkable. UPPER ABDOMEN: No free air under the diaphragm. IMPRESSION: Stable exam. Cardiomegaly with interstitial pulmonary edema and bilateral pleural effusions suggestive of decompensated heart failure. Signed by: Fortunato Donnelly MD on 09/27/2019 6:37 AM
[2019-09-27] MEDS: ALBUTEROL/IPRATROPIUM 3 ML NEB NEB SCH (07:00)
--- NOTE | 2019-09-27 07:00 | NUR ---
BEDSIDE SHIFT REPORT RECEIVED FROM TELEGRAPHER AGENT RN [facility]. PT DENIES NEEDS AT THIS TIME/.
--- NOTE | 2019-09-27 07:16 | NUR ---
patient is resting comfortably in the bed. bed is in lowest position and call light is within reach.
[2019-09-27] MEDS: INSULIN LISPRO 100 UNIT/1 ML 3ML VIAL SQ SCH ×4 (07:30→22:10)
[2019-09-27] MEDS: FUROSEMIDE 20 MG TAB PO SCH (09:38)
[2019-09-27] MEDS: SPIRONOLACTONE 25 MG TAB PO SCH (09:38)
[2019-09-27] MEDS: RIFAXIMIN 550 MG TABLET PO SCH ×2 (09:38→16:57)
[2019-09-27] MEDS: LEVOTHYROXINE SODIUM 125 MCG TAB PO SCH (09:38)
[2019-09-27] MEDS: INSULIN GLARGINE 100 UNITS/ML VIAL SQ SCH (09:40)
[2019-09-27] MEDS ORDERED: POTASSIUM CHLORIDE 20 MEQ TAB CR PO ONE (10:00)
[2019-09-27] MEDS ORDERED: MAGNESIUM SULFATE 2GM/50ML 50 ML IV ONE (10:00)
--- NOTE | 2019-09-27 16:19 | Diagnostic Imaging Report ---
Limited abdominal ultrasound History: Abdominal distention Comparison: CT chest abdomen and pelvis of 09/25/2019 Technique/findings: Limited ultrasound evaluation of the abdomen was performed in all 4 quadrants. No visible ascites. The requested paracentesis was not performed. IMPRESSION: No visible ascites. Signed by: Zohaib Haque MD on 09/27/2019 4:15 PM
[2019-09-27] MEDS: PROPRANOLOL HCL 10 MG TAB PO SCH (16:57)
[2019-09-27] MEDS ORDERED: ONDANSETRON HCL 4 MG ORAL DISINTEGRATING TAB PO PRN (17:15)
[2019-09-28] VITALS: BP 157/65
[2019-09-28 04:00] VITALS: BP 122/51
[2019-09-28 05:34] LABS: BASOPHILS % 0.5 % (0.0-1.0); EOSINOPHILS # (AUTO) 0.3 (0.0-0.4); EOSINOPHILS % 5.5 % (0.0-6.0); HEMATOCRIT 35.1 % (34.2-44.1); HEMOGLOBIN 11.5 g/dL (12.0-16.0); LYMPHOCYTES # (AUTO) 1.8 (1.0-3.2); LYMPHOCYTES % 29.3 % (18.0-39.1); MEAN CORPUSCULAR HEMOGLOBIN 33.4 pg (28-32); MEAN CORPUSCULAR HGB CONC 32.8 g/dL (31-35); MONOCYTES # (AUTO) 0.7 (0.2-0.8); MONOCYTES % 12.2 % (4.4-11.3); NEUTROPHILS # (AUTO) 3.1 (2.1-6.9); NEUTROPHILS % 52.2 % (38.7-80.0); PLATELET COUNT 77 x10e3/uL (140-360); RED BLOOD COUNT 3.44 x10e6/uL (3.6-5.1); RED CELL DISTRIBUTION WIDTH 15.3 % (11.7-14.4)
[2019-09-28 06:06] LABS: ALANINE AMINOTRANSFERASE 28 IU/L (0-55); ALBUMIN 1.9 g/dL (3.5-5.0); ALBUMIN/GLOBULIN RATIO 0.5 (0.8-2.0); ALKALINE PHOSPHATASE 205 IU/L (40-150); ANION GAP 8.4 mmol/L (8-16); BLOOD UREA NITROGEN 7 mg/dL (7-26); BUN/CREATININE RATIO 8 (6-25); CARBON DIOXIDE 33 mmol/L (22-29); CHLORIDE 100 mmol/L (98-107); EST GLOMERULAR FILTRATION RATE > 60 ML/MIN (60-); GLUCOSE 310 mg/dL (74-118); POTASSIUM 3.4 mmol/L (3.5-5.1); SODIUM 138 mmol/L (136-145)
[2019-09-28 07:46] VITALS: BP 137/58
[2019-09-28] MEDS ORDERED: INSULIN GLARGINE 100 UNITS/ML VIAL SQ SCH (09:00)
[2019-09-28 09:14] VITALS: BP 137/58
[2019-09-28] MEDS: RIFAXIMIN 550 MG TABLET PO SCH (09:28)
[2019-09-28] MEDS: FUROSEMIDE 20 MG TAB PO SCH (09:29)
[2019-09-28] MEDS: PROPRANOLOL HCL 10 MG TAB PO SCH (09:29)
[2019-09-28] MEDS: LEVOTHYROXINE SODIUM 125 MCG TAB PO SCH (09:30)
[2019-09-28] MEDS: SPIRONOLACTONE 25 MG TAB PO SCH (09:30)
[2019-09-28] MEDS: INSULIN LISPRO 100 UNIT/1 ML 3ML VIAL SQ SCH ×2 (09:35→11:30)
--- NOTE | 2019-09-28 09:46 | Diagnostic Imaging Report ---
EXAM: CHEST SINGLE (PORTABLE) DATE: 09/28/2019 5:20 AM INDICATION: Chest breath COMPARISON: 09/27/2019 FINDINGS: The trachea is midline. There are stable right greater than left-sided pleural effusions present. There are bibasilar opacities suggestive of atelectasis. There is no evidence for new large focal consolidation or pneumothorax. The cardiac mediastinal silhouette is stable in appearance. No acute osseous abnormality is identified. IMPRESSION: No significant interval change from 09/27/2019. Stable bilateral pleural effusions. Signed by: Dr. Oleksandr Xiong MD on 09/28/2019 9:43 AM
[2019-09-28] MEDS ORDERED: MAGNESIUM SULFATE 2GM/50ML 50 ML IV ONE (09:55)
[2019-09-28] MEDS ORDERED: POTASSIUM CHLORIDE 20 MEQ TAB CR PO ONE (10:10)
[2019-09-28 11:52] VITALS: BP 112/55
--- NOTE | 2019-09-28 15:00 | NUR ---
pt alert resp even and unlabored, no distress noted at this time, pt iv site removed no swelling no redness, pt was given prescriptions, and was asked to follow up with her PCP.
--- NOTE | 2019-09-28 22:47 | Discharge Summary ---
PRIMARY CARE DOCTOR: Dr. Yoandy Dorman. FINAL DIAGNOSIS: Anasarca with pleural effusion due to cirrhosis. SECONDARY DIAGNOSES: 1. Diabetes with hyperglycemia. 2. Morbid obesity. 3. Pulmonary hypertension. 4. Coagulopathy and thrombocytopenia due to cirrhosis, stable. CONSULTANTS: WILNER Mata. PROCEDURES/STUDIES PERFORMED: CT of the abdomen and chest, and also abdominal ultrasound, which showed no ascites for paracentesis. HISTORY: Per H and P. HOSPITAL COURSE: The patient was admitted. The patient was diuresed with p.o. Lasix and Aldactone and clinically she is feeling better. Therefore, the patient will be going home today. The patient was seen and examined today. I have updated the primary care doctor about this visit as well. The patient will follow up with him in 1 week. CONDITION ON DISCHARGE: Improved. DISCHARGE MEDICATIONS: Please see medication reconciliation form. Yiching MD NIURKA Sumner/NICHOLE /[id number] cc: [facility]
== END 2019-09-28 14:32 | disposition home or self-care (01) | DRG 442 ==
LOC: ER 09:33 → OBSVTOIN 15:34 → ERHOLD 15:34 → MED/SURG2 17:26
PROVIDERS: ADMIT Internal Medicine; ATTEND Internal Medicine
DX: B19.20 Unspecified viral hepatitis C without hepatic coma (principal); Z68.41 Body mass index [BMI] 40.0-44.9, adult; J90 Pleural effusion, not elsewhere classified; D68.9 Coagulation defect, unspecified; R18.8 Other ascites; K74.60 Unspecified cirrhosis of liver; I27.20 Pulmonary hypertension, unspecified; D69.59 Other secondary thrombocytopenia; E66.01 Morbid (severe) obesity due to excess calories; F17.200 Nicotine dependence, unspecified, uncomplicated; E03.9 Hypothyroidism, unspecified; E11.9 Type 2 diabetes mellitus without complications; E11.65 Type 2 diabetes mellitus with hyperglycemia; E87.6 Hypokalemia
CPT/HCPCS: 36415; 71045; 71260; 74177; 74470; 76705; 80048; 80053; 81001; 82550; 82553; 82948; 83690; 83735; 83880; 84484; 85025; 85610; 93005; 93306; 94640; 97139; 99284; J1815; J2543; J3475; J7040; P9047; Q9967

== ENCOUNTER 2020-01-03 11:57 | Observation (INO) | payer MEDICARE, OTHER ==
[~2020-01-03] VITALS: Ht 160 cm; Wt 96.2 kg
--- NOTE | 2020-01-03 12:31 | Emergency Department Note ---
History of Present Illnes History of Present Illness Chief Complaint: COVID PUI History of Present Illness This is a 64 year old female Chief Complaint Comment pt observed walking into triage. aaox4. ambulatory steady gait. pt states fatigue and sob for a week. pt poor historian. ex smoker quit 2 years. pt walking and talking very slowly in triage. pt arrived with taco mata slushy drinking without difficult. 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 Any updates have been documented here. Past Medical History Recent Fever: No Clinical Suspicion of Infectio: No New/Unexplained Change in Ment: No Past Medical History: Hypertension, Diabetes, Asthma, Hypothyroidism, Liver Disease, GERD Other Medical History: cirrosis liver morbid obesity Past Surgical History: Cholecysctectomy Other Surgery: right ovary removed, Family History Family history of heart diseas: Yes Other Last Tetanus: UP TO DATE Review of Systems Review of Systems Constitutional: Reports no symptoms EENTM: Reports no symptoms Cardiovascular: Reports no symptoms Respiratory: Reports no symptoms, Reports dyspnea Gastrointestinal: Reports no symptoms, Reports other (Abd swelling) Genitourinary: Reports no symptoms Musculoskeletal: Reports no symptoms Integumentary: Reports no symptoms Neurological: Reports no symptoms Psychological: Reports no symptoms Endocrine: Reports no symptoms Hematological/Lymphatic: Reports no symptoms Physical Exam Related Data Allergies: Coded Allergies: No Known Allergies (Unverified , 09/25/19) Triage Vital Signs Vital Signs Date Time Temp Pulse Resp B/P (MAP) Pulse Ox O2 Delivery O2 Flow Rate FiO2 01/03/20 12:06 98.1 71 22 159/89 97 Room Air Physical Exam CONSTITUTIONAL Constitutional: Present well-developed, Present well-nourished HENT HENT: Present normocephalic, Present atraumatic, Present oropharynx clear/moist, Present nose normal HENT L/R: Present left ext ear normal, Present right ext ear normal EYES Eyes: Reports PERRL, Reports conjunctivae normal NECK Neck: Present ROM normal PULMONARY Pulmonary: Present effort normal, Present breath sounds normal, Present other (Mildly tachypnic RR 22) CARDIOVASCULAR Cardiovascular: Present regular rhythm, Present heart sounds normal, Present capillary refill normal, Present normal rate GASTROINTESTINAL Abdominal: Present soft, Present nontender, Present bowel sounds normal GENITOURINARY Genitourinary: Present exam deferred SKIN Skin: Present warm, Present dry MUSCULOSKELETAL Musculoskeletal: Present ROM normal NEUROLOGICAL Neurological: Present alert, Present oriented x 3, Present no gross motor or sensory deficits PSYCHOLOGICAL Psychological: Present mood/affect normal, Present judgement normal Results Laboratory Lab results reviewed: Yes Imaging Imaging results reviewed: Yes Diagnostics Tests Diagnostic test(s) reviewed: Yes Procedures 12 Lead ECG Interpretation ECG Interpretation : ECG: ECG 1 Date: Jan 03, 2020 Rhythm: sinus rhythm Rate: normal BPM: 74 QRS axis: normal ST segments normal: Yes T waves normal: Yes Clinical Impression: non-specific ECG Assessment & Plan Medical Decision Making MDM 64-year-old female with history of cirrhosis presenting for shortness of breath. Initial differential includes CHF versus coated versus other viral upper respiratory infection versus pneumonia. Exam shows some mild tachypnea but is not requiring oxygen. Workup significant for cirrhosis with some portal hypertension and pleural effusions. She was given 60 mg of IV Lasix and was discussed with Dr. Brambila agreed to admit for shortness of breath and pleural effusions. Consult placed to Dr. Matamoros as well as Dr. La. Patient is appropriate for transfer to the floor. Reassessment Reassessment time: 15:28 Reassessment Well appearing, NAD, mild tachypnea Assessment & Plan Final Impression: (1) Shortness of breath (2) Pleural effusion Depart Disposition: ADMITTED Last Vital Signs Date Time Temp Pulse Resp B/P (MAP) Pulse Ox O2 Delivery O2 Flow Rate FiO2 01/03/20 12:06 98.1 71 22 159/89 97 Room Air Home Meds Active Scripts Albuterol Sulfate (PROVENTIL HFA) 6.7 Gm Hfa.aer.ad, 6.7 GM INH PRN for SHORTNESS OF BREATH, #1 Prov:MARKO HOLLINS [employer] ADVISER 07/14/19 Reported Medications Benzonatate (BENZONATATE) 100 Mg Capsule, 100 MG PO TID, CAP 07/13/19 Spironolactone (SPIRONOLACTONE) 25 Mg Tablet, 100 MG PO DAILY, #60 TAB 07/13/19 Ursodiol (ACTIGALL) 300 Mg Capsule, 2 CAP PO BID 07/13/19 Insulin Glargine (LANTUS 3ML PEN) 100 Units/1 Ml Inj, 70 SQ HS 11/29/17 Zinc Sulfate (ZINC SULFATE) 220 Mg Tablet, 220 MG PO DAILY, #30 CAP 11/29/17 Magnesium Oxide (MAGNESIUM OXIDE) 400 Mg Tablet, 400 MG PO DAILY, TAB 11/29/17 Rifaximin (XIFAXAN) 550 Mg Tablet, 1 TAB PO BID 11/11/17 Furosemide (LASIX) 40 Mg Tablet, 40 MG PO DAILY, #30 TAB 11/11/17 Propranolol Hcl (PROPRANOLOL HCL) 10 Mg Tablet, 10 MG PO BID, TAB 01/11/17 Omeprazole (OMEPRAZOLE) 40 Mg Capsule.dr, DAILY 01/11/17 Levothyroxine Sodium (SYNTHROID) 125 Mcg Tab, 125 MCG PO DAILY, #30 TAB 06/18/16 Lactulose (LACTULOSE) 20 Gm/30 Ml Solution, 20 G PO TID, EACH 06/18/16 KEDAR BARRIOS MD Jan 03, 2020 12:31
[2020-01-03 12:50] LABS: BASOPHILS % 0.7 % (0.0-1.0); EOSINOPHILS # (AUTO) 0.3 (0.0-0.4); EOSINOPHILS % 6.8 % (0.0-6.0); HEMATOCRIT 33.8 % (34.2-44.1); HEMOGLOBIN 11.1 g/dL (12.0-16.0); LYMPHOCYTES # (AUTO) 1.3 (1.0-3.2); LYMPHOCYTES % 27.5 % (18.0-39.1); MEAN CORPUSCULAR HEMOGLOBIN 32.4 pg (28-32); MEAN CORPUSCULAR HGB CONC 32.8 g/dL (31-35); MEAN CORPUSCULAR VOLUME 98.5 fL (81-99); MONOCYTES # (AUTO) 0.7 (0.2-0.8); MONOCYTES % 14.3 % (4.4-11.3); NEUTROPHILS # (AUTO) 2.3 (2.1-6.9); NEUTROPHILS % 50.5 % (38.7-80.0); PLATELET COUNT 74 x10e3/uL (140-360); RED BLOOD COUNT 3.43 x10e6/uL (3.6-5.1); RED CELL DISTRIBUTION WIDTH 16.7 % (11.7-14.4)
--- OUTSIDE RECORDS SUMMARY | 2020-01-03 12:55 | XMS REPORT | Clinical Summary ---
Author Author [facility] Address Unknown Phone Unavailable Care Team Providers Care Plumbing Engineering Draftsperson Name Role Phone Yoandy Dorman John PCP Allergies No Known Allergies Medications End Date Status Medication Sig Dispensed Refills Start Date Active spironolactone Take 100 mg 0 (ALDACTONE) 100 MG tablet by mouth 6 daily . Active lactulose (CHRONULAC) 10 Take 20 g by 0 06/17 gram/15 mL solution mouth 3 7 (three) times daily . Active levothyroxine (SYNTHROID, Take 125 mcg 0 04/27 LEVOTHROID) 125 MCG by mouth. 6 tablet Active ALBUTEROL SULFATE Inhale 2 0 (PROVENTIL HFA INHL) puffs by mouth via inhaler 2 (two) times daily as needed. Active omeprazole (PRILOSEC) 40 Take 40 mg by 0 MG capsule mouth daily. Active polyethylene glycol Take 17 g by 0 (GLYCOLAX) 17 gram packet mouth daily. Active propranolol (INDERAL) 10 Take 10 mg by 0 MG tablet mouth 2 (two) times daily. Active furosemide (LASIX) 40 MG Take 40 mg by 0 tablet mouth daily. Active insulin glargine (LANTUS) Inject 60 0 100 unit/mL injection Units subcutaneousl y 2 (two) times daily Use as directed . Active insulin aspart U-100 Inject 10 0 (NOVOLOG) 100 unit/mL Units injection subcutaneousl y 2 (two) times daily. 10/19/2020 Active ursodioL (ACTIGALL) 300 Take 2 360 capsule 3 mg capsuleIndications: capsules (600 0 Cirrhosis of liver with mg total) by ascites, unspecified mouth 2 (two) hepatic cirrhosis type times daily. (HCC) Active rifAXIMin (XIFAXAN) 550 Take 1 tablet 60 tablet 11 mg TabIndications: (550 mg 0 Hepatic encephalopathy total) by (HCC) mouth 2 (two) times daily. 12/10/2019 Discontinued rifAXIMin 550 mg Tab Take 550 mg 0 by mouth 2 (two) times daily. 10/20/2019 Discontinued ursodiol (ACTIGALL) 300 Take 2 360 capsule 3 mg capsuleIndications: capsules (600 0 Cirrhosis of liver with mg total) by ascites, unspecified mouth 2 (two) hepatic cirrhosis type times daily. (HCC) Active Problems Problem Noted Date Pre-transplant evaluation for liver transplant 04/30 Last Assessment & Plan: She is an acceptable candidate for live r transplant pending further imaging/testing and official review at [facility]. Chronic hepatitis C without hepatic coma 10/27/2017 Cirrhosis of liver with ascites, unspecified hepatic cirrhosis type 10/27/2017 Last Assessment & Plan: Cirrhosis secondary to Hep C. Preoperative cardiovascular examination 04/04/2017 Ascites 07/25/2016 Overview: Controlled with spironolactone 100 mg d aily. Not requiring taps Hepatic encephalopathy 07/25/2016 Overview: L ast Assessment & Plan: She takes lactulose TID, not currently encephalopathic Esophageal varices in cirrhosis 07/25/2016 Last Assessment & Plan: Has had EGD with varices seen, no angus ng done at the time. Being referred to GI for repeat EGD for surveillance Morbidly obese 07/25/2016 Last Assessment & Plan: BMI is 44. She will meet with our trans plant benefit authorizer. Encourage decreased oral intake and exercise as tolerated. Cirrhosis 06/17/2016 Last Assessment & Plan: Meld 17 with portal HTN and ascites, ca ndidate for liver transplant listing Portal hypertension 06/17/2016 Last Assessment & Plan: Portal hypertension with evidence by en cephalopathy, varices, and ascites. HCC surveillance 06/17/2016 Screening for immunity 06/17/2016 Chronic portal vein thrombosis 06/17/2016 Metabolic syndrome 06/17/2016 Encounters Care Team Description Date Type Specialty Berry Pacheco PA Hepatic encephalopathy (HCC) (Primary Dx ); Screening for cancer 12/10/2019 Orders Only Hepatology Zunilda Grider prior auth (Xifaxan) 11/25/2019 Telephone Hepatology Palma Arango RN 11/25/2019 Documentation Hepatology Fantasma Pina NP Screening for cancer (Primary Dx); Cirrhosis of liver with ascites, unspecified hepatic cirrhosis type (HCC); Hepatic encephalopathy (HCC); HCC surveillance; Other ascites 10/20/2019 Audio - Hepatology Telemedicine Gricelda Vargas MA 10/19/2019 Documentation Hepatology Gricelda Vargas MA appt tomorrow 10/19/2019 Telephone Hepatology Vinicius Alejo MA Appointment 10/19/2019 Telephone Hepatology Vinicius Alejo MA Appointment 10/12/2019 Telephone Hepatology Palma Arango RN 10/06/2019 Documentation Hepatology Palma Arango RN Telephone Call Follow Up 09/27/2019 Telephone Hepatology Palma Arango dedicated regional driver Follow Up 09/21/2019 Telephone Hepatology Palma Arango dedicated regional driver Follow Up 09/15/2019 Telephone Hepatology Palma Arango RN 09/09/2019 Documentation Hepatology Palma Arango RN 09/09/2019 Documentation Hepatology Africa López MA Ursodiol medication 09/08/2019 Telephone Hepatology Africa López MA 09/08/2019 Abstract Hepatology Palma Arango RN 09/07/2019 Documentation Hepatology Palma Arango RN Follow-up 09/03/2019 Telephone Hepatology Palma Arango RN 08/12/2019 Documentation Hepatology Palma Arango RN Follow-up 08/12/2019 Telephone Hepatology Palma Arango RN 08/12/2019 Abstract Hepatology Palma Arango RN 08/11/2019 Telephone Hepatology Fantasma Pina, CONSTANTINO Results 08/06/2019 Telephone Hepatology Palma Arango RN Follow-up 07/28/2019 Telephone Hepatology Palma Arango audio video repairer Follow Up 07/19/2019 Telephone Hepatology Palma Arango RN Follow-up (Follow Up Regarding Due for B loodwork) 07/19/2019 Telephone Hepatology Palma Arango, RN Follow-up 07/08/2019 Telephone Hepatology Palma Arango RN 06/24/2019 Telephone Hepatology Fantasma Pina, CONSTANTINO Cirrhosis of liver with ascites, unspeci fied hepatic cirrhosis type (HCC) (Primary Dx) 06/24/2019 Orders Only Hepatology Palma Arango, RN 06/24/2019 Abstract Hepatology Palma Arango, RN Telephone Call Follow Up 06/22/2019 Telephone Hepatology Palma Arango RN other (To Follow up on Completion of Blo odwork) 06/07/2019 Telephone Hepatology Polo Gabriel MD No Show 06/02/2019 Hospital Radiology Encounter Africa López MA 05/17/2019 Abstract Hepatology Fantasma Pina NP returning call 05/12/2019 Telephone Hepatology Fantasma Pina NP Results 05/11/2019 Telephone Hepatology Palma Arango RN 04/27/2019 Abstract Hepatology Shakir Vega FNP Lab results 04/26/2019 Telephone Hepatology Shakir Vega FNP Returning HEDIS ANALYST call of the day 04/26/2019 Telephone Hepatology Fantasma Pina NP med list 04/15/2019 Telephone Hepatology Ulices Robert MD Fuller, [place], NP Cirrhosis of liver with ascites, unspeci fied hepatic cirrhosis type (HCC) (Primary Dx); HCC surveillance; Other ascites; Screening for immunity 04/14/2019 Office Visit Hepatology Fantasma Pina NP update med list 04/14/2019 Telephone Hepatology after 01/02/2019 Social History Date Tobacco Use Types Packs/Day Years Used Former Smoker Smokeless Tobacco: Never Used Alcohol Use Drinks/Week oz/Week Comments No Sex Assigned at Date Recorded Not on file Industry Job Start Date Occupation Not on file Not on file Not on file Travel End Travel History Travel Start No recent travel history available. Last Filed Vital Signs Time Taken Vital Sign Reading 04/14/2019 11:57 AM LOOM FIXER Blood Pressure 131/93 04/14/2019 11:57 AM LOOM FIXER Pulse 71 04/14/2019 11:57 AM LOOM FIXER Temperature 35.8 C (96.4 F) 04/14/2019 11:57 AM LOOM FIXER Respiratory Rate 18 04/14/2019 11:57 AM LOOM FIXER Oxygen Saturation 96% - Inhaled Oxygen - Concentration 04/14/2019 11:57 AM LOOM FIXER Weight 99.2 kg (218 lb 12.8 oz) 04/14/2019 11:57 AM LOOM FIXER Height 160 cm (5' 3") 04/14/2019 11:57 AM LOOM FIXER Body Mass Index 38.76 Plan of Treatment Care Team Description Date Type Specialty Ulices Robert MD [address] [facility] [address] [place], [place] [id number] 01/20/2020 Office Visit Hepatology Health Maintenance Due Date Last Done Comments MEDICARE ANNUAL WELLNESS 02/24/2017 (YEAR 2 or FIRST YEAR if no IPPE) INFLUENZA VACCINE (#1) 2020 BREAST CANCER SCREENING 06/23/2020 06/23/2018 PNEUMOCOCCAL 65+ 08/11/2022 09/17/2018, 018 HIGH/HIGHEST RISK (2 of 2 - PPSV23) COLON CANCER SCREENING 04/01/2027 04/01/2017 COLONOSCOPY Results Not on fileafter 01/02/2019 Insurance Payer Benefit Subscriber ID Type Phone Address [facility] / Group [facility] MEDICARE ADV [id number] Advance Directives For more information, please contact: [facility] [address] [place] [address] Date Inactivated Comments Code Status Date Activated 09/04/2018 4:14 PM Full Code 09/04/2018 5:29 AM This code status was determined by: Patient 04/05/2017 12:48 AM Full Code 04/04/2017 8:15 AM This code status was determined by: Patient
--- OUTSIDE RECORDS SUMMARY | 2020-01-03 12:55 | XMS REPORT | Clinical Summary ---
Author Author [facility] ict Organization [facility] ict Address Unknown Phone Unavailable Care Team Providers Care Senior Qa Analyst Name Role Phone PCP Unavailable Allergies Comments Active Allergy Reactions Severity Noted Date No Known Drug Allergies 05/31/2015 Medications End Date Status Medication Sig Dispensed Refills Start Date Active sertraline (ZOLOFT) 50 mg Take 1/2 tab 90 tablet 3 tabletIndications: MDD by mouth 4 (major depressive daily for 1 disorder) week; then increase to 1 full tab daily for depression. Active hydrocortisone 2.5 % Apply to 20 g 0 05/31 topical creamIndications: affected area 5 Rash and other 2 times nonspecific skin eruption daily. Active lactulose (CHRONULAC) 10 Take 45 mL by 450 mL 0 gram/15 mL oral mouth 3 times 6 solutionIndications: daily for 90 Hepatic encephalopathy, days. Medication refill Active furosemide (LASIX) 20 mg Take 1 tablet 60 tablet 1 tabletIndications: by mouth 2 6 Hepatic cirrhosis, times daily. unspecified hepatic cirrhosis type Active spironolactone Take 1 tablet 90 tablet 2 (ALDACTONE) 100 mg by mouth 6 tabletIndications: daily Hepatic cirrhosis, unspecified hepatic cirrhosis type Active propranolol (INDERAL) 10 Take 1 tablet 180 tablet 1 mg tabletIndications: by mouth 2 6 Hepatic cirrhosis, times daily. unspecified hepatic cirrhosis type, Essential hypertension with goal blood pressure less than 140/90 Active atorvastatin (LIPITOR) 10 Take 1 tablet 30 tablet 0 mg tabletIndications: by mouth at 6 Cerebrovascular accident bedtime (CVA) due to other nightly. mechanism Active albuterol (VENTOLIN Inhale 2 20.1 g 1 HFA,PROVENTIL HFA,PROAIR Puffs by 6 HFA) 90 mcg/actuation mouth 4 times inhalerIndications: Acute daily as bronchitis, unspecified needed for organism Wheezing. Active cetirizine (ZYRTEC) 10 mg Take 1 tablet 30 tablet 0 tabletIndications: by mouth 6 Medication refill daily. Active predniSONE (DELTASONE) 20 Take 3 15 tablet 0 mg tabletIndications: tablets by 6 Medication refill mouth daily. Active codeine-guaiFENesin Take 5 mL by 120 mL 0 10/04 (CHERATUSSIN AC) 10-100 mouth 3 times 6 mg/5 mL syrupIndications: daily as Acute bronchitis, needed for unspecified organism, Cough. Medication refill Active ofloxacin (OCUFLOX) 0.3 % Instill 5 5 mL 0 ophthalmic drops to each 6 solutionIndications: ear daily for Acute bronchitis, 10 days. Ok unspecified organism, for Bilateral acute serous pharmacist to otitis media, recurrence 0.3% not specified ofloxacin eye solution for ear treatment.. Active dexlansoprazole Take 1 90 capsule 3 (DEXILANT) 30 mg delayed capsule by 6 release mouth daily capsuleIndications: GERD (gastroesophageal reflux disease) Active lactulose (CONSTULOSE) 10 Take 30 mL [place] [address] mL 3 gram/15 mL oral mouth 2 times 6 solutionIndications: daily for 90 Hepatic cirrhosis due to days. chronic hepatitis C infection Active albuterol (PROVENTIL) 2.5 Inhale 3 mL 75 mL 3 mg /3 mL (0.083 %) by mouth 6 nebulizer every 6 hours solutionIndications: as needed for Medication refill Wheezing or Shortness of Breath (Patient has nebulizer machine at home). Active calcitriol (ROCALTROL) Take 1 60 capsule 2 0.25 mcg capsule by 6 capsuleIndications: mouth daily. Vitamin D deficiency Active polyethylene glycol Mix 17 grams 255 g 1 12/28 (MIRALAX) 17 gram/dose into 4 to 8 6 oral powderIndications: ounces of Slow transit constipation water, juice, soda, tea or coffee and drink as directed, one time a day. Active polyethylene glycol Mix 17 grams 527 g 0 01/09 (GLYCOLAX) 17 gram/dose into 4 to 8 6 oral powderIndications: ounces of Other constipation water, juice, soda, tea or coffee and drink as directed, one time a day. Active levothyroxine (SYNTHROID) Take 1 tablet 90 tablet 4 112 mcg by mouth 6 tabletIndications: Other daily. specified hypothyroidism Active Problems Problem Noted Date Type 2 diabetes mellitus with diabetic cataract, with long-term current use 02/22/2016 of insulin Type 2 diabetes mellitus without complication, withou t long-term current 12/27/2015 use of insulin Portal hypertension with esophageal and gastric varic es 10/11/2015 Partial portal vein thrombosis (no A/C given history of ICH) 10/11/2015 Left shoulder pain 09/18/2015 Impaired mobility and activities of daily living 09/2014 Thrombocytopenia due to hypersplenism 03/28/2015 Hypothyroidism 03/28/2015 Iatrogenic hyperthyroidism 03/28/2015 HTN (hypertension), benign 03/27/2015 Left-sided weakness 02/08/2015 Intraparenchymal hematoma of brain 02/08/2015 Diabetes 04/28/2014 SOB (shortness of breath) 12/08/2013 MDD (major depressive disorder) 11/23/2013 Chronic hepatitis C with cirrhosis (hepatic sequalae thrombocytopenia 2/2 09/08/2013 splenic sequestration w/ splenomegaly, partial portal vein occlusion, portal hypertension w/ varices, macrocy tosis) Splenomegaly 09/23/2012 Overview: Ct abd - spleen 13.7cm HLD (hyperlipidemia) Obesity ZION positive UTI (urinary tract infection) Stroke Asthma Hepatic encephalopathy Encephalomalacia on imaging study ICH (intracerebral hemorrhage) Gastric ulcer Vitamin D deficiency Immunizations Name Administration Dates Next Due Herpes Zoster Vaccine In 03/30/2014 (Deferred: Julien fitzpatrick Refused - Patient Clinic given information on Vaccin e to review) Influenza Vaccine 03/30/2014 (Deferred: Julien fitzpatrick Refused) PNEUMOCOCCAL 23-VALPS 02/07/2014 VACCINE 25 MCG/0.5 ML INJECTION Pneumococcal 7-valent 02/07/2014 conj 0.5 mL injection Family History Medical History Relation Name Comments Heart Father Hypertension Father Arthritis Mother Cancer Mother Diabetes Mother Hypertension Mother Asthma Sister Relation Name Status Comments Brother Brother Alive Brother Alive Brother Alive Daughter Alive Father Maternal Grandfather Maternal Grandmother Mother Paternal Grandfather Paternal Grandmother Sister Alive Sister Alive Sister Alive Sister Alive Sister Alive Sister Son Alive Social History Date Tobacco Use Types Packs/Day Years Used Former Smoker Smokeless Tobacco: Never Used Tobacco Cessation: Counseling Given: No Drinks/Week oz/Week Comments Alcohol Use 0 Standard drinks or equivalent 0.0 No Sex Assigned at Date Recorded Not on file Industry Job Start Date Occupation Not on file Not on file Not on file Travel End Travel History Travel Start No recent travel history available. Last Filed Vital Signs Not on file Plan of Treatment Health Maintenance Due Date Last Done Comments DM Foot Exam (Yearly) 08/18/1971 Breast Cancer Scrn 1993 (Yearly) Colorectal Cancer Scrn 08/18/2003 Annual (FIT/FOBT) Age 50 to 75 DM Microalbumin Urine 05/22/2016 05/22/2015 Scrn (Yearly) DM HGBA1C (Yearly) 07/06/2016 07/06/2015, 05/15/2015, 02/08/2015, Additional history exists DM Retinal Exam (Yearly) 02/13/2017 02/14/2016 IMM Pneumococcal Age 63 Completed 02/07/2014, and Up 02/07/2014 Results Not on fileafter 01/02/2019 Insurance Type Payer Benefit Subscriber ID Effective Phone Address Plan / Dates Group MEDICARE MEDICARE xxxxxxxxxx [id number] [phone] [id number] [place] [address] Advance Directives Date Inactivated Comments Code Status Date Activated 03/30/2015 6:20 PM Full Code 03/28/2015 12:55 AM 02/10/2015 6:05 PM Full Code 02/08/2015 8:43 PM
--- OUTSIDE RECORDS SUMMARY | 2020-01-03 12:56 | XMS REPORT | Continuity of Care Document ---
Author Author [facility] t Organization [facility] Address [address] [place] [address] Phone Unavailable Care Team Providers Care Broomcorn Thresher Name Role Phone NONSTAFF PCP Unavailable Tara SMITH, Peace Smart Attphys Silvana DRAMATIC READER, Spring Fantasma Attphys Zunilda Griedr Attphys Unavailable Conchita MAGANA, Zafar Waldrop Attphys Unavailable Gricelda Vargas MA Attphys Unavailable Sapna MENDOZA, Walter Colvin Attphys Unavailable Andrea RYAN Attphys Unavailable Leigha Carrera MA, [place] Attphys Unavailable Neris Plascencia MD Attphys [phone] Yovana Macias Attphys Wanda Robert MD Attphys SUNDAR BURNETTE Attphys Unavailable DEMETRIUS STOKES Attphys Unavailable Maya RUDD Attphys Unavailable NERIS PLASCENCIA Attphys Unavailable Kristin VARNER Attphys Unavailable Andrea MCNEILL Attphys Unavailable JAIDEN PALMER Attphys Unavailable Andrea RYAN Admphys Unavailable SUNDAR BURNETTE Admphys Unavailable Payers Payer Name Policy Type Policy Number Effective Date Expiration Date Shakir browning [employer]AREK[employer]CARE MEDICARE ADVxxxxxxxxxxx xxxxxxxxxxx [facility] Kelsey Care Medicare Advantage NA 2016 00:00 :00 [facility] Problems Condition Name Condition Details Condition Category Status Onset Date Resolution Date Last Treatment Date Treating Clinician Comments Source Pre-transplant evaluation for liver transplant Pre-tra nsplant evaluation for liver transplant Disease Active 2018-04-30 00:00:00 Last Assessment & Plan: She is an acceptable candidate for liver transplant pending further imaging/testing and official review at [facility] Chronic hepatitis C without hepatic coma Chronic hepat itis C without hepatic coma Disease Active 2017-10-27 00:00:00 [facility] Cirrhosis of liver with ascites, unspecified hepatic c irrhosis type Cirrhosis of liver with ascites, unspecified hepatic cirrhosis type Disease Activ e 2017-10-27 00:00:00 Last Assessment & Plan: Cirr hosis secondary to Hep C. [facility] Preoperative cardiovascular examination Preoperative cardiov ascular examination Disease Active 2017-04-04 00:00:00 [facility] Ascites Ascites Disease Active 2016-07-25 00:00:00 Overview: Controlled with spironolactone 100 mg daily. 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 Being referred to GI for repeat EGD for surveillance [facility] Morbidly obese Morbidly obese Disease Active 2016-07-25 00:00:00 Last Assessment & Plan: BMI is 44. She will meet with our transplant java development manager. Encourage decreased oral intake and exercise as tolerated. [facility] Cirrhosis Cirrhosis Disease Active 2016-06-17 00:00:00 Last Assessment & Plan: Meld 17 with portal HTN and ascites, candidate for liver transplant listing [facility] Portal hypertension Portal hypertension Disease Active 2016-06-17 00:00 :00 Last Assessment & Plan: Portal hypertens ion with evidence by encephalopathy, varices, and ascites. [facility] Screening for immunity Screening for immunity Disease Active 2016-06-17 00:00:00 [facility] Chronic portal vein thrombosis Chronic portal vein thrombosis Disea se Active 2016-06-17 00:00:00 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, with long-term current use of insulin Disease Active 2016-02-22 00:00:00 [facility] Type 2 diabetes mellitus without complic ation, without long-term current use of insulin Type 2 diabetes mellitus without complic ation, without long-term current use of insulin Disease Active 2015-12-27 00:00:00 [facility] Hepatic cirrhosis Cirrhosis Problem Active 2015-12-06 00:00:00 [facility] Diabetes mellitus Diabetes Problem Active 2015-12-06 00:00:00 [facility] Sinusitis Sinusitis Problem Active 2015-12-06 00:00:00 [facility] Weakness Weakness Problem Active 2015-12-06 00:00:00 [facility] Portal hypertension with esophageal and gastric varice s Portal hypertension with esophageal and gastric varices Disease Active 2015-10-11 00:00:00 [facility] Partial portal vein thrombosis (no A/C given history o f ICH) Partial portal vein thrombosis (no A/C given history of ICH) Disease Active 2015-10-11 00:00: 00 [facility] Left shoulder pain Left shoulder pain Disease Active 2015-09-18 00:00:0 0 [facility] Impaired mobility and activities of daily living Impai red mobility and activities of daily living Disease Active 2015-03-30 00:00:00 [facility] Thrombocytopenia due to hypersplenism Thrombocytopenia due t o hypersplenism Disease Active 2015-03-28 00:00:00 [facility] Hypothyroidism Hypothyroidism Disease Active 2015-03-28 00:00:00 [facility] Iatrogenic hyperthyroidism Iatrogenic hyperthyroidism Disease Active 2015-03-28 00:00:00 [facility] HTN (hypertension), benign HTN (hypertension), benign Disease Active 2015-03-27 00:00:00 [facility] Left-sided weakness Left-sided weakness Disease Active 2015-02-08 00:00 :00 [facility] Intraparenchymal hematoma of brain Intraparenchymal hematoma of brain Disease Active 2015-02-08 00:00:00 [facility] Diabetes Diabetes Disease Active 2014-04-28 00:00:00 [facility] Hepatic encephalopathy Hepatic encephalopathy syndrome Problem Active 2014-04-18 00:00:00 [facility] Chronic hepatitis C with cirrhosis Cirrhosis, hepatitis C Problem Active 2014-04-18 00:00:00 [facility] SOB (shortness of breath) SOB (shortness of breath) Disease Ac tive 2013-12-08 00:00:00 [facility] MDD (major depressive disorder) MDD (major depressive disorder) Dis ease Active 2013-11-23 00:00:00 [facility] Chronic hepatitis C with cirrhosis (hepa tic sequalae thrombocytopenia 2/2 splenic sequestration w/ splenomegaly, partial portal vein occlusion, portal hypertension w/ varices, macrocytosis) Chronic hepatitis C with cirrhosis (hepatic sequalae thrombocytopenia 2/2 splenic sequestration w/ splenomegaly, partial portal vein occlusion, portal hypertension w/ varices, macrocytosis) Disease Active 2013-09-08 00:00:00 [facility] Splenomegaly Splenomegaly Disease Active 2012-09-23 00:00:00 Overview: Ct abd - spleen 13.7cm [facility] Altered mental status Change in mental status Problem Active [facility] Coagulation disorder Coagulopathy Problem Active [facility] Dehydration Dehydration Problem Active [facility] Hepatitis C virus infection Hepatitis C Problem Active [facility] Spontaneous bacterial peritonitis SBP (spontaneous bacterial peritonitis) Problem Active [facility] Cough Cough Problem Active [facility] Sepsis Problem Active [facility] Abdominal pain Problem Active [facility] Pleural effusion Problem Active [facility] HLD (hyperlipidemia) HLD (hyperlipidemia) Disease Active [facility] Obesity Obesity Disease Active [facility] IZON positive ZION positive Disease Active [facility] UTI (urinary tract infection) UTI (urinary tract infection) Disease Active [facility] Stroke Stroke Disease Active [facility] Asthma Asthma Disease Active [facility] Hepatic encephalopathy Hepatic encephalopathy Disease Active [facility] Encephalomalacia on imaging study Encephalomalacia on imaging [facility] Disease Active [facility] ICH (intracerebral hemorrhage) ICH (intracerebral hemorrhage) Disease Active [facility] Gastric ulcer Gastric ulcer Disease Active [facility] Vitamin D deficiency Vitamin D deficiency Disease Active [facility] Allergies, Adverse Reactions, Alerts This patient has no known allergies or adverse reactions. Family History Family Member Diagnosis Comments Start Date Stop Date Source Natural father [facility] Natural father Hypertension [facility] Natural mother [facility] Natural mother [facility] Natural mother Hypertension [facility] Natural sister Asthma [facility] Social History Social Habit Start Date Stop Date Quantity Comments Source Sex Assigned At [facility] Alcohol intake 2015-12-27 00:00:00 2015-12-27 00:00:00 Current non-drinker of alcohol (finding) [facility] Smoking Status Start Date Stop Date Source Former smoker 2015-12-27 00:00:00 2015-12-27 00:00:00 [facility] Medications Ordered Medication Name Filled Medication Name Start Date Stop Da te Current Medication? Ordering Clinician Indication Dosage Frequency Signature (SIG) Comments Components Source rifAXIMin 550 mg Tab 2019-12-10 14:03:35 2019-12-10 00:00:00 No 550mg Q.5D Take 550 mg by mouth 2 (two) times daily. [facility] rifAXIMin (XIFAXAN) 550 mg Tab 2019-12-10 00:00:00 Yes Hepatic encephalopathy (HCC) 550mg Q.5D Take 1 tablet (550 mg total) by mouth 2 (two) times daily. [facility] ursodioL (ACTIGALL) 300 mg capsule 2019-10-20 00:00:00 2020-10-19 23:59:00 Yes Cirrhosis of liver with ascites, unspeci fied hepatic cirrhosis type (HCC) 600mg Q.5D Take 2 capsules (600 mg total) by mouth 2 (two) times daily. [facility] Albuterol Sulfate (Proventil Hfa) 6.7 Gm HFA.AER.AD Al buterol Sulfate (Proventil Hfa) 6.7 Gm HFA.AER.AD 2019-07-14 14:51:00 Yes 6.7 As Needed for Shortness Of Breath [facility] ursodiol (ACTIGALL) 300 mg capsule 2019-06-24 00:00:00 202 00:00:00 No Cirrhosis of liver with ascites, unspecified hepatic c irrhosis type (HCC) 600mg Q.5D Take 2 capsules (600 mg total) by mouth 2 (two) times daily. [facility] insulin glargine (LANTUS) 100 unit/mL injection 2018-09-04 07:06 :57 Yes 60U Q.5D Inject 60 Units subcutaneously 2 (two) times abhishek ly Use as directed . [facility] insulin aspart U-100 (NOVOLOG) 100 unit/mL injection 2 07:06:57 Yes 10U Q.5D Inject 10 Units subcutaneously 2 (two) t imes daily. [facility] furosemide (LASIX) 40 MG tablet 2018-09-04 05:57:40 Yes 40mg QD Take 40 mg by mouth daily. [facility] propranolol (INDERAL) 10 MG tablet 2018-09-04 05:57:39 Yes 10mg Q.5D Take 10 mg by mouth 2 (two) times daily. [facility] ALBUTEROL SULFATE (PROVENTIL HFA INHL) 2017-04-04 08:39:05 Yes 2{puff} Inhale 2 puffs by mouth via inhaler 2 (two) times daily as neede d. [facility] omeprazole (PRILOSEC) 40 MG capsule 2017-04-04 08:39:05 Yes 40mg QD Take 40 mg by mouth daily. [facility] polyethylene glycol (GLYCOLAX) 17 gram packet 2017-04-04 08:39:0 5 Yes 17g QD Take 17 g by mouth daily. [facility] Amoxicillin/Potassium Clav (Amox Tr-K Clv 875-125 Mg T ab) 1 Each TABLET Amoxicillin/Potassium Clav (Amox Tr-K Clv 875-125 Mg Tab) 1 Each TABLET 2016-06-24 18:30:00 2016-12-02 00:00:00 No 875 Every 12 Hours [facility] lactulose (CHRONULAC) 10 gram/15 mL solution 2016-06-17 00:00:00 Yes 20g Q.[id number] Take 20 g by mouth 3 (three) times daily . [facility] levothyroxine (SYNTHROID, LEVOTHROID) 125 MCG tablet 2 00:00:00 Yes 125ug Take 125 mcg by mouth. [facility] spironolactone (ALDACTONE) 100 MG tablet 2016-04-23 00:00:00 Yes 100mg QD Take 100 mg by mouth daily . [facility] levothyroxine (SYNTHROID) 112 mcg tablet 2016-01-16 00:00:00 Yes Other specified hypothyroidism 112ug QD Take 1 tablet by mouth daily. [facility] polyethylene glycol (GLYCOLAX) 17 gram/dose oral powder 2016-01-10 00:00:00 Yes Other constipation Mix 17 gr ams into 4 to 8 ounces of water, juice, soda, tea or coffee and drink as directed, one time a day. [facility] polyethylene glycol (MIRALAX) 17 gram/dose oral powder 2015-12-29 00:00:00 Yes Slow transit constipation Mi x 17 grams into 4 to 8 ounces of water, juice, soda, tea or coffee and drink as directed, one time a day. [facility] calcitriol (ROCALTROL) 0.25 mcg capsule 2015-12-27 00:00:00 Yes Vitamin D deficiency .25ug QD Take 1 capsule by mouth daily. [facility] lactulose (CONSTULOSE) 10 gram/15 mL oral solution 2015-11 00:00:00 Yes Hepatic cirrhosis due to chronic hepatitis C infection 20g Q.5D Take 30 mL by mouth 2 times daily for 90 days. [facility] albuterol (PROVENTIL) 2.5 mg /3 mL (0.083 %) nebulizer solut ion 2015-12-18 00:00:00 Yes Medication refill 2.5mg In goff 3 mL by mouth every 6 hours as needed for Wheezing or Shortness of Breath (Patient has nebulizer machine at home). [facility] dexlansoprazole (DEXILANT) 30 mg delayed release capsule 2015-11-19 00:00:00 Yes GERD (gastroesophageal reflux disease) 30mg QD Take 1 capsule by mouth daily [facility] cetirizine (ZYRTEC) 10 mg tablet 2015-10-05 00:00:00 Yes Medication refill 10mg QD Take 1 tablet by mouth daily. [facility] predniSONE (DELTASONE) 20 mg tablet 2015-10-05 00:00:00 Yes Medication refill 60mg QD Take 3 tablets by mouth daily. [facility] codeine-guaiFENesin (CHERATUSSIN AC) 10-100 mg/5 mL syrup 2015-10-05 00:00:00 Yes Medication refill 5mL Take 5 mL by mouth 3 times daily as needed for Cough. [facility] ofloxacin (OCUFLOX) 0.3 % ophthalmic solution 2015-10-05 00: 00:00 Yes Bilateral acute serous otitis media, recurrence not specified Instill 5 drops to each ear daily for 10 days. Ok for pharmacist to 0.3% ofloxacin eye solution for ear treatment.. [facility] furosemide (LASIX) 20 mg tablet 2015-09-06 00:00:00 Yes Hepatic cirrhosis, unspecified hepatic cirrhosis type 20mg Q.5D Take 1 tablet by mouth 2 times daily. [facility] spironolactone (ALDACTONE) 100 mg tablet 2015-09-06 00:00:00 Yes Hepatic cirrhosis, unspecified hepatic cirrhosis type 100mg QD Take 1 tablet by mouth daily [facility] propranolol (INDERAL) 10 mg tablet 2015-09-06 00:00:00 Yes Essential hypertension with goal blood pressure less than 140/90 10mg Q.5D Take 1 tablet by mouth 2 times daily. [facility] atorvastatin (LIPITOR) 10 mg tablet 2015-09-06 00:00:00 Yes Cerebrovascular accident (CVA) due to other mechanism 10mg Take 1 tablet by mouth at bedtime nightly. [facility] albuterol (VENTOLIN HFA,PROVENTIL HFA,PROAIR HFA) 90 mcg/act uation inhaler 2015-09-06 00:00:00 Yes Acute bronchitis, unspecified organism 2{puff} Inhale 2 Puffs by mouth 4 times daily as needed for Wheezing. [facility] lactulose (CHRONULAC) 10 gram/15 mL oral solution 2015-05-31 00:00:00 Yes Medication refill 30g Take 45 mL by mouth 3 times daily for 90 days. [facility] hydrocortisone 2.5 % topical cream 2014-05-31 00:00:00 Yes Rash and other nonspecific skin eruption Q.5D Apply to affected area 2 times d aily. [facility] sertraline (ZOLOFT) 50 mg tablet 2014-03-30 00:00:00 Yes MDD (major depressive disorder) Take 1/2 tab by tk th daily for 1 week; then increase to 1 full tab daily for depression. [facility] Benzonatate Benzonatate Yes 100 Three Times A Da y [facility] Furosemide (Lasix) 40 Mg TABLET Furosemide (Lasix) 40 Mg TABLET Yes 40 Daily [facility] Insulin Glargine (Lantus 3ML Pen) 100 Units/1 Ml INJ I nsulin Glargine (Lantus 3ML Pen) 100 Units/1 Ml INJ Yes 70 Bedtime [facility] Lactulose Lactulose Yes 20 Three Times A Day [facility] Levothyroxine Sodium (Synthroid) 125 Mcg TAB Levothyro xine Sodium (Synthroid) 125 Mcg TAB Yes 125 Daily [facility] Magnesium Oxide Magnesium Oxide Yes 400 Daily [facility] Omeprazole Omeprazole Yes Daily [facility] Propranolol Hcl Propranolol Hcl Yes 10 Twice A Day [facility] Rifaximin (Xifaxan) 550 Mg TABLET Rifaximin (Xifaxan) 550 Mg TABLET Yes 1 Twice A Day [facility] Spironolactone Spironolactone Yes 100 Daily [facility] Ursodiol (Actigall) 300 Mg CAPSULE Ursodiol (Actigall) 300 Mg CAPSULE Yes 2 Twice A Day [facility] Zinc Sulfate Zinc Sulfate Yes 220 Daily [facility] Albuterol Sulfate (Proventil Hfa) 6.7 Gm HFA.AER.AD Al buterol Sulfate (Proventil Hfa) 6.7 Gm HFA.AER.AD 2019-07-14 00:00:00 No As Needed for Shortness Of Breath [facility] Albuterol Sulfate (Ventolin Hfa) 18 Gm HFA.AER.AD Albu terol Sulfate (Ventolin Hfa) 18 Gm HFA.AER.AD 2019-07-13 00:00:00 No Ev seth 4 Hours [facility] Cholecalciferol (Vitamin D3) (Vitamin D) 1,000 Unit TA BLET Cholecalciferol (Vitamin D3) (Vitamin D) 1,000 Unit TABLET 2019-07-13 00:00:00 No 5000 Weekly [facility] Insulin Aspart (Novolog) 100 Unit/1 Ml CARTRIDGE Insul in Aspart (Novolog) 100 Unit/1 Ml CARTRIDGE 2019-07-13 00:00:00 No 6 Befo re Meals [facility] Xifaxan Xifaxan 2019-07-13 00:00:00 No 550 Twice A D ay [facility] Metformin Hcl Metformin Hcl 2017-11-29 00:00:00 No 500 Twice A Day [facility] Polyethylene Glycol 3350 Polyethylene Glycol 3350 2017-11-29 00: 00:00 No 17 As Needed as needed for Constipation [facility] Spironolactone (Aldactone) 100 Mg TABLET Spironolacton e (Aldactone) 100 Mg TABLET 2017-11-29 00:00:00 No 100 Daily [facility] Glimepiride Glimepiride 2017-11-11 00:00:00 No 4 D aily [facility] Dexlansoprazole (Dexilant) 30 Mg CAP. Dexlansopra zole (Dexilant) 30 Mg CAP. 2017-01-11 00:00:00 No 30 Daily [facility] Propranolol Hcl Propranolol Hcl 2016-06-28 00:00:00 No 10 Daily [facility] Albuterol Sulfate (Proventil Hfa) 6.7 Gm HFA.AER.AD Al buterol Sulfate (Proventil Hfa) 6.7 Gm HFA.AER.AD 2016-06-18 00:00:00 No 1 Every 4 Hours as needed for Shortness Of Breath [facility] Amlodipine Besylate Amlodipine Besylate 2016-06-18 00:00:00 No 10 Daily At 1500 [facility] Fluticasone Propionate (Flonase) 16 Gm SPRAY.SUSP Flut icasone Propionate (Flonase) 16 Gm SPRAY.SUSP 2016-06-18 00:00:00 No 1 Twice A Day [facility] Hydrocodone Bit/Acetaminophen (Walford 5-325 Tablet) 1 E ach TABLET Hydrocodone Bit/Acetaminophen (Walford 5-325 Tablet) 1 Each TABLET 2016-06-18 00: 00:00 No 1 Every 8 Hours as needed for Pain [facility] Insulin Detemir (Levemir 3ML Flexpen*) 100 Units/Ml IN J Insulin Detemir (Levemir 3ML Flexpen*) 100 Units/Ml INJ 2016-06-18 00:00:00 No [facility] Lactulose Lactulose 2016-06-18 00:00:00 No 2 Twice A Day [facility] Levothyroxine Sodium Levothyroxine Sodium 2016-06-18 00:00:00 No 137 Daily At 1500 [facility] Omeprazole Omeprazole 2016-06-18 00:00:00 No 40 Abhishek ly Prn [facility] Polyethylene Glycol 3350 Polyethylene Glycol 3350 2016-06-18 00: 00:00 No 17 Daily [facility] Rifaximin (Xifaxan) 550 Mg TABLET Rifaximin (Xifaxan) 550 Mg TAB LET 2016-06-18 00:00:00 No 1 Twice A Day [facility] Sertraline Hcl Sertraline Hcl 2016-06-18 00:00:00 No 50 Daily [facility] Spironolactone Spironolactone 2016-06-18 00:00:00 No 100 Daily At 1500 [facility] Immunizations Ordered Immunization Name Filled Immunization Name Date Status Comments Source Pneumococcal 7-valent conj 0.5 mL injection 2014-02-07 00: 00:00 Completed [facility] PNEUMOCOCCAL 23-VALPS VACCINE 25 MCG/0.5 ML INJECTION 2014-02-07 00:00:00 [facility] Vital Signs Vital Name Observation Time Observation Value Comments Source Body Temperature 2019-09-28 11:52:00 98.4 [degF] [facility] BMI (Body Mass Index) 2019-09-25 17:12:00 41.3 kg/m2 [facility] Weight 2019-09-25 09:41:00 226 [lb_av] [facility] Systolic blood pressure 2019-04-14 11:57:00 131 mm[Hg] [facility] Diastolic blood pressure 2019-04-14 11:57:00 93 mm[Hg] [facility] Heart rate 2019-04-14 11:57:00 71 /min [facility] Body temperature 2019-04-14 11:57:00 35.78 Janet [facility] Respiratory rate 2019-04-14 11:57:00 18 /min [facility] Body height 2019-04-14 11:57:00 160 cm [facility] Body weight Measured 2019-04-14 11:57:00 99.247 kg [facility] BMI 2019-04-14 11:57:00 38.76 kg/m2 [facility] Oxygen saturation in Arterial blood by Pulse oximetry 2018-05 11:57:00 96 /min [facility] r Procedures Procedure Date / Time Performed Performing Clinician [facility] e US Abdomen limited 2019-09-27 00:00:00 [facility] Computed tomography of abdomen and pelvis with contrast 00:00:00 [facility] Computed tomography of chest with contrast 2019-09-25 00:00:00 [facility] Computed tomography of abdomen and pelvis with contrast 00:00:[address] [facility] [address] of abdomen and pelvis without contrast 2019-09-20 00:00:00 [facility] US Abdomen limited 2019-07-21 00:00:00 MARKO HOLLINS [facility] Computed tomography of abdomen and pelvis with contrast 2019 00:00:00 ANSON TELLES [facility] X-ray of chest, two views 2019-07-13 00:00:00 ANSON TELLES [facility] Computed tomography of chest with contrast 2019-07-13 00:00:00 NIKOS BAÑUELOS [facility] US abdomen complete 2019-07-13 00:00:00 MARKO HOLLINS [facility] Plan of Care Planned Activity Planned Date Details Comments Source Future Scheduled Test 2027-04-01 00:00:00 Screening for iris gnant neoplasm of colon (procedure) [code = 625351840] [facility] Future Scheduled Test 2022-08-11 00:00:00 PNEUMOCOCCAL 65+ H IGH/HIGHEST RISK (2 of 2 - PPSV23) [code = PNEUMOCOCCAL 65+ HIGH/HIGHEST RISK (2 of 2 - PPSV23)] [facility] Future Scheduled Test 2020-06-23 00:00:00 Screening for iris gnant neoplasm of breast (procedure) [code = 589252793] [facility] Future Scheduled Test 2020-01-25 00:00:00 INFLUENZA VACCINE (#1) [code = INFLUENZA VACCINE (#1)] [facility] Scheduled Test 2017-02-24 00:00:00 MEDICARE ANNUAL WE LLNESS (YEAR 2 or FIRST YEAR if no IPPE) [code = MEDICARE ANNUAL WELLNESS (YEAR 2 or FIRST YEAR if no IPPE)] [facility] Scheduled Test 2017-02-13 00:00:00 DM Retinal Exam (Y early) [code = DM Retinal Exam (Yearly)] [facility] Scheduled Test 2016-07-06 00:00:00 Hemoglobin A1c patricia surement (procedure) [code = 06711375] [facility] Scheduled Test 2016-05-22 00:00:00 Urine screening fo r protein (procedure) [code = 671284360] [facility] Scheduled Test 2003-08-18 00:00:00 Screening for iris gnant neoplasm of colon (procedure) [code = 277956462] [facility] Scheduled Test 1993 00:00:00 Breast Cancer Scrn (Yearly) [code = Breast Cancer Scrn (Yearly)] [facility] Scheduled Test 1971-08-18 00:00:00 DM Foot Exam (Year ly) [code = DM Foot Exam (Yearly)] [facility] Instructions [facility] Instructions Pleural Effusion [facility] Encounters Start Date/Time End Date/Time Encounter Type Admission [facility] ID Source 2019-09-25 15:34:00 2019-09-28 14:32:00 Discharged Inpatient 1 [facility] [id number] [facility] 2019-09-21 00:20:00 2019-09-23 16:52:00 Discharged Inpatient 1 [facility] [id number] [facility] 2019-07-19 17:44:00 2019-07-21 12:46:00 Discharged Inpatient 1 [facility] [id number] [facility] 2019-07-13 13:53:00 2019-07-14 16:25:00 Discharged Inpatient (obs) 1 [facility] [id number] [facility] 2018-07-10 11:21:00 2018-07-10 17:27:00 Departed Emergency Room 1 KENDALL RUDD [facility] [id number] [facility] 2017-11-29 05:44:00 2017-12-01 12:56:00 Discharged Inpatient 1 [facility] [id number] [facility] 2017-11-10 14:15:00 2017-11-11 13:30:00 Discharged Inpatient (obs) 1 SIDNEYJAIDEN ANDREWS [facility] [id number] [facility] 2017-03-03 17:08:00 2017-03-04 00:35:00 Departed Emergency Room ER FRANCES MCNEILL [facility] [id number] [facility] Results Test Description Test Time Test Comments Results Result Comments Source Capillary blood glucose measurement by glucometer (mas s/volume) 2019-09-28 11:19:00 Test Item Bedside Glucose (test code = 02298-4) 303 70-120 Meter ID: [id number] [facility] (mass/volume)2019-09-28 11:19:00* Test Item Value Reference Range Interpretation Comments Bedside Glucose (test code = 34380-1) 303 70-120 Meter ID: [id number] [facility] by [facility] (mass/volume)2019-09-28 11:19:00* Test Item Value Reference Range Interpretation Comments Bedside Glucose (test code = 81724-5) 303 70-120 Meter ID: [id number] [facility]2019-09-28 09:42:00 [place] [address] Patient Name: DEBORAH AGUERO MR #: [id number] : 1955 Age/Sex: 64/F Req #: [id number] Adm Physician: STORMY RYAN MD Ordered by: STORMY RYAN MD Report #: [id number] Location: MED/SURG Room/Bed: [facility] Procedure: [id number] DX/CHEST SINGLE ( PORTABLE) Exam Date: 09/28/19 Exam Time: 519 REPORT STATUS: Signed EXAM: CHEST SIN GLE (PORTABLE) DATE: 09/28/2019 5:20 AM INDICATION: Chest breath COMPARISON: 09/27/2019 FINDINGS: The trachea is midline. There are stable right greater than left-sided pleural effusions present. There are bibasilar opacities suggestive of atelectasis. There is no evidence for new large focal consolidation or pneumothorax. The cardiac mediastinal silhouette is stable in appearance. No acute osseous abnormality is identified. IMPRESSION: No significant interval change from 09/27/2019. Stable bilateral pleural effusions. Signed by: Dr. Oleksandr Xiong MD on 09/28/2019 9:43 AM Di ctated By: OLEKSANDR XIONG MD [id number] COPY TO: STORMY RYAN MD Blood leukocytes automated count (number/volume)2019-09-28 05:10:00* Test Item Value Reference Range Interpretation Comments White Blood Count (test code = 6690-2) 5.97 4.8-10.8 [facility] automated count (number/volume)2019-09-28 05:10:00* Test Item Value Reference Range Interpretation Comments Red Blood Count (test code = 789-8) 3.44 3.6-5.1 [facility] hemoglobin measurement (moles/volume)2019-09-28 05:10:00* Test Item Value Reference Range Interpretation Comments Hemoglobin (test code = 01079-2) 11.5 12.0-16.0 [facility] HospitalAutomated blood hematocrit (volume fraction)2019-09-28 05:10:00* Test Item Value Reference Range Interpretation Comments Hematocrit (test code = 4544-3) 35.1 34.2-44.1 [facility]Autom[facility] erythrocyte mean corpuscular ihnxej4991-45-28 05:10:00* Test Item Value Reference Range Interpretation Comments Mean Corpuscular Volume (test code = 787-2) 102.0 81-99 [facility] HospitalAutomated erythrocyte mean corpuscular hemoglobin (mass per erythrocyte)2019-09-28 05:10:00* Test Item Value Reference Range Interpretation Comments Mean Corpuscular Hemoglobin (test code = 785-6) 33.4 28-32 [facility] HospitalAutomated erythrocyte mean corpuscular hemoglobin concentration measurement (mass/volume)2019-09-28 05:10:00* Test Item Value Reference Range Interpretation Comments Mean Corpuscular Hemoglobin Concent (test code = 786-4) 32.8 31-35 [facility] HospitalRDW GocXx-Bdr1461-82-05 05:10:00* Test Item Value Reference Range Interpretation Comments Red Cell Distribution Width (test code = 99311-7) 15.3 11.7 -14.4 [facility] HospitalAutomated blood platelet count (count/volume)2019-09-28 05:10:00* Test Item Value Reference Range Interpretation Comments Platelet Count (test code = 777-3) 77 140-360 [facility] HospitalAutomated blood segmented neutrophil count as percentage of total wbpkdsfsev5665-28-99 05:10:00* Test Item Value Reference Range Interpretation Comments Neutrophils (%) (Auto) (test code = 82056-8) 52.2 38.7-80.0 [facility] HospitalAutomated blood lymphocyte count as percentage ot total jaagiyzcjn9821-66-08 05:10:00* Test Item Value Reference Range Interpretation Comments Lymphocytes (%) (Auto) (test code = 736-9) 29.3 18.0-39.1 [facility] HospitalAutomated blood monocyte count as percentage of total aswekiyzty7727-66-37 05:10:00* Test Item Value Reference Range Interpretation Comments Monocytes (%) (Auto) (test code = 5905-5) 12.2 4.4-11.3 [facility] HospitalAutomated blood eosinophil count as percentage of total xwehpmgjnz8713-15-33 05:10:00* Test Item Value Reference Range Interpretation Comments Eosinophils (%) (Auto) (test code = 713-8) 5.5 0.0-6.0 [facility] HospitalAutomated blood basophil count as percentage of total ltevrloozc1090-25-59 05:10:00* Test Item Value Reference Range Interpretation Comments Basophils (%) (Auto) (test code = 706-2) 0.5 0.0-1.0 [facility] HospitalFluoroscopic procedure less than one hour sqvckhyg0795-91-92 05:10:00* Test Item Value Reference Range Interpretation Comments IM GRANULOCYTES % (test code = IM GRANULOCYTES %) 0.3 0.0- 1.0 [facility] HospitalAutomated blood neutrophil count 2019-09-28 05:10:00* Test Item Value Reference Range Interpretation Comments Neutrophils # (Auto) (test code = 751-8) 3.1 2.1-6.9 [facility] HospitalBlood lymphocytes count (number/volume) 2019-09-28 05:10:00* Test Item Value Reference Range Interpretation Comments Lymphocytes # (Auto) (test code = 41525-9) 1.8 1.0-3.2 [facility] HospitalBlood monocytes automated count (number/volume)2019-09-28 05:10:00* Test Item Value Reference Range Interpretation Comments Monocytes # (Auto) (test code = 742-7) 0.7 0.2-0.8 [facility] HospitalAutomated blood eosinophil count 2019-09-28 05:10:00* Test Item Value Reference Range Interpretation Comments Eosinophils # (Auto) (test code = 711-2) 0.3 0.0-0.4 [facility] HospitalAutomated blood basophil count (count/volume)2019-09-28 05:10:00* Test Item Value Reference Range Interpretation Comments Basophils # (Auto) (test code = 704-7) 0.0 0.0-0.1 [facility] HospitalFluoroscopic procedure less than one hour dczxkucx7303-27-13 05:10:00* Test Item Value Reference Range Interpretation Comments Absolute Immature Granulocyte (auto ([place] t code = Absolute Immature Granulocyte (auto) 0.02 0-0.1 [facility] sodium measurement (moles/volume)2019-09-28 05:10:00* Test Item Value Reference Range Interpretation Comments Sodium Level (test code = 2951-2) 138 136-145 [facility] plasma potassium measurement (moles/volume)2019-09-28 05:10:00* Test Item Value Reference Range Interpretation Comments Potassium Level (test code = 2823-3) 3.4 3.5-5.1 [facility] plasma chloride measurement (moles/volume)2019-09-28 05:10:00* Test Item Value Reference Range Interpretation Comments Chloride Level (test code = 2075-0) 100 98-107 [facility]er[facility] or plasma carbon dioxide, total measurement (moles/volume)2019-09-28 05:10:00* Test Item Value Reference Range Interpretation Comments Carbon Dioxide Level (test code = 2028-9) 33 22-29 [facility] Hospitalerum or plasma anion sve3375-79-19 05:10:00* Test Item Value Reference Range Interpretation Comments Anion Gap (test code = 62833-4) 8.4 8-16 [facility]er[facility] or plasma urea nitrogen measurement (mass/volume)2019-09-28 05:10:00* Test Item Value Reference Range Interpretation Comments Blood Urea Nitrogen (test code = 3094-0) 7 7-26 [facility]er[facility] or plasma creatinine measurement (mass/volume)2019-09-28 05:10:00* Test Item Value Reference Range Interpretation Comments Creatinine (test code = 2160-0) 0.90 0.57-1.11 [facility]erum or plasma urea nitrogen/creatinine mass aeddm1520-67-46 05:10:00* Test Item Value Reference Range Interpretation Comments BUN/Creatinine Ratio (test code = 3097-3) 8 6-25 [facility] HospitalEstimated glomerular filtration rate (GFR) mxxsgxfxbkwha2672-22-87 05:10:00* Test Item Value Reference Range Interpretation Comments Estimat Glomerular Filtration Rate (test code = 103398623) > 60 >60 Ranges were taken from the National Kidney Disease Education Program and the [facility] literature.Reference ranges:60 or greater: Niqjba05-93 ( for 3 consecutive months): Chronic kidney disease 15 or less: Kidney failureNocona General HospitalGlucose maebacktmxo1134-00-34 05:10:00* Test Item Value Reference Range Interpretation Comments Glucose Level (test code = WIW8985) 310 74-118 [facility]er[facility] or plasma calcium measurement (mass/volume)2019-09-28 05:10:00* Test Item Value Reference Range Interpretation Comments Calcium Level (test code = 81046-1) 8.0 8.4-10.2 [facility] Hospitalerum or plasma magnesium measurement (mass/volume)2019-09-28 05:10:00* Test Item Value Reference Range Interpretation Comments Magnesium Level (test code = 50143-7) 1.5 1.3-2.1 [facility] Hospitalerum or plasma total bilirubin measurement (mass/volume)2019-09-28 05:10:00* Test Item Value Reference Range Interpretation Comments Total Bilirubin (test code = 1975-2) 3.4 0.2-1.2 [facility] HospitalFluoroscopic procedure less than one hour padpwixd5823-43-60 05:10:00* Test Item Value Reference Range Interpretation Comments Aspartate Amino Transf (AST/SGOT) (test code = Aspartate Amino Transf (AST/SGOT)) 34 5-34 [facility] Hospitalerum or plasma alanine aminotransferase measurement (enzymatic activity/volume)2019-09-28 05:10:00* Test Item Value Reference Range Interpretation Comments Alanine Aminotransferase (ALT/SGPT) (test code = 1742-6) 28 0-55 [facility] Hospitalerum or plasma protein measurement (mass/volume)2019-09-28 05:10:00* Test Item Value Reference Range Interpretation Comments Total Protein (test code = 2885-2) 5.8 6.5-8.1 [facility] Hospitalerum or plasma albumin measurement (mass/volume)2019-09-28 05:10:00* Test Item Value Reference Range Interpretation Comments Albumin (test code = 1751-7) 1.9 3.5-5.0 [facility] HospitalPlasma globulin measurement (mass/volume) 2019-09-28 05:10:00* Test Item Value Reference Range Interpretation Comments Globulin (test code = 73685-9) 3.9 2.3-3.5 [facility] Hospitalerum or plasma albumin/globulin mass grdwt3254-27-76 05:10:00* Test Item Value Reference Range Interpretation Comments Albumin/Globulin Ratio (test code = 1759-0) 0.5 0.8-2.0 [facility] Hospitalerum or plasma alkaline phosphatase measurement (enzymatic activity/volume)2019-09-28 05:10:00* Test Item Value Reference Range Interpretation Comments Alkaline Phosphatase (test code = 6768-6) 205 40-150 [facility] leukocytes automated count (number/volume)2019-09-28 05:10:00* Test Item Value Reference Range Interpretation Comments White Blood Count (test code = 6690-2) 5.97 4.8-10.8 [facility] HospitalBlood erythrocytes automated count (number/volume)2019-09-28 05:10:00* Test Item Value Reference Range Interpretation Comments Red Blood Count (test code = 789-8) 3.44 3.6-5.1 [facility] HospitalBlood hemoglobin measurement (moles/volume)2019-09-28 05:10:00* Test Item Value Reference Range Interpretation Comments Hemoglobin (test code = 72833-5) 11.5 12.0-16.0 [facility] HospitalAutomated blood hematocrit (volume fraction)2019-09-28 05:10:00* Test Item Value Reference Range Interpretation Comments Hematocrit (test code = 4544-3) 35.1 34.2-44.1 [facility] HospitalAutomated erythrocyte mean corpuscular gwgscc2657-98-14 05:10:00* Test Item Value Reference Range Interpretation Comments Mean Corpuscular Volume (test code = 787-2) 102.0 81-99 [facility] HospitalAutomated erythrocyte mean corpuscular hemoglobin (mass per erythrocyte)2019-09-28 05:10:00* Test Item Value Reference Range Interpretation Comments Mean Corpuscular Hemoglobin (test code = 785-6) 33.4 28-32 [facility] HospitalAutomated erythrocyte mean corpuscular hemoglobin concentration measurement (mass/volume)2019-09-28 05:10:00* Test Item Value Reference Range Interpretation Comments Mean Corpuscular Hemoglobin Concent (test code = 786-4) 32.8 31-35 [facility] HospitalRDW TxeKm-Nkg2190-44-05 05:10:00* Test Item Value Reference Range Interpretation Comments Red Cell Distribution Width (test code = 73235-8) 15.3 11.7 -14.4 [facility] HospitalAutomated blood platelet count (count/volume)2019-09-28 05:10:00* Test Item Value Reference Range Interpretation Comments Platelet Count (test code = 777-3) 77 140-360 [facility] HospitalAutomated blood segmented neutrophil count as percentage of total nasstvfqke7920-42-10 05:10:00* Test Item Value Reference Range Interpretation Comments Neutrophils (%) (Auto) (test code = 41336-0) 52.2 38.7-80.0 [facility] HospitalAutomated blood lymphocyte count as percentage ot total tqsvvnyymh9749-63-71 05:10:00* Test Item Value Reference Range Interpretation Comments Lymphocytes (%) (Auto) (test code = 736-9) 29.3 18.0-39.1 [facility] count as percentage of total uwzaocccog9448-71-69 05:10:00* Test Item Value Reference Range Interpretation Comments Monocytes (%) (Auto) (test code = 5905-5) 12.2 4.4-11.3 [facility] HospitalAuthugh [facility] hospitaled blood eosinophil count as percentage of total hlrnsalkbv3274-34-58 05:10:00* Test Item Value Reference Range Interpretation Comments Eosinophils (%) (Auto) (test code = 713-8) 5.5 0.0-6.0 [facility] HospitalAutomated blood basophil count as percentage of total nmgjcaykmi1355-70-92 05:10:00* Test Item Value Reference Range Interpretation Comments Basophils (%) (Auto) (test code = 706-2) 0.5 0.0-1.0 [facility] HospitalFluoroscopic procedure less than one hour lqodmefn4553-89-74 05:10:00* Test Item Value Reference Range Interpretation Comments IM GRANULOCYTES % (test code = IM GRANULOCYTES %) 0.3 0.0- 1.0 [facility] HospitalAutomated blood neutrophil count 2019-09-28 05:10:00* Test Item Value Reference Range Interpretation Comments Neutrophils # (Auto) (test code = 751-8) 3.1 2.1-6.9 [facility] HospitalBlood lymphocytes count (number/volume) 2019-09-28 05:10:00* Test Item Value Reference Range Interpretation Comments Lymphocytes # (Auto) (test code = 29509-9) 1.8 1.0-3.2 [facility] HospitalBlood monocytes automated count (number/volume)2019-09-28 05:10:00* Test Item Value Reference Range Interpretation Comments Monocytes # (Auto) (test code = 742-7) 0.7 0.2-0.8 [facility] HospitalAutomated blood eosinophil count 2019-09-28 05:10:00* Test Item Value Reference Range Interpretation Comments Eosinophils # (Auto) (test code = 711-2) 0.3 0.0-0.4 [facility] HospitalAutomated blood basophil count (count/volume)2019-09-28 05:10:00* Test Item Value Reference Range Interpretation Comments Basophils # (Auto) (test code = 704-7) 0.0 0.0-0.1 [facility] HospitalFluoroscopic procedure less than one hour dpilccqb4502-63-37 05:10:00* Test Item Value Reference Range Interpretation Comments Absolute Immature Granulocyte (auto ([place] t code = Absolute Immature Granulocyte (auto) 0.02 0-0.1 [facility]er[facility] or plasma sodium measurement (moles/volume)2019-09-28 05:10:00* Test Item Value Reference Range Interpretation Comments Sodium Level (test code = 2951-2) 138 136-145 [facility] Hospitalerum or plasma potassium measurement (moles/volume)2019-09-28 05:10:00* Test Item Value Reference Range Interpretation Comments Potassium Level (test code = 2823-3) 3.4 3.5-5.1 [facility] Hospitalerum or plasma chloride measurement (moles/volume)2019-09-28 05:10:00* Test Item Value Reference Range Interpretation Comments Chloride Level (test code = 2075-0) 100 98-107 [facility] Hospitalerum or plasma carbon dioxide, total measurement (moles/volume)2019-09-28 05:10:00* Test Item Value Reference Range Interpretation Comments Carbon Dioxide Level (test code = 2028-9) 33 22-29 [facility] Hospitalerum or plasma anion onq7029-45-42 05:10:00* Test Item Value Reference Range Interpretation Comments Anion Gap (test code = 78804-8) 8.4 8-16 [facility]erum or plasma urea nitrogen measurement (mass/volume)2019-09-28 05:10:00* Test Item Value Reference Range Interpretation Comments Blood Urea Nitrogen (test code = 3094-0) 7 7-26 [facility]erum or plasma creatinine measurement (mass/volume)2019-09-28 05:10:00* Test Item Value Reference Range Interpretation Comments Creatinine (test code = 2160-0) 0.90 0.57-1.11 [facility]erum or plasma urea nitrogen/creatinine mass hqyeq7356-83-30 05:10:00* Test Item Value Reference Range Interpretation Comments BUN/Creatinine Ratio (test code = 3097-3) 8 6-25 [facility] HospitalEstimated glomerular filtration rate (GFR) kzlpnswntermk3591-07-63 05:10:00* Test Item Value Reference Range Interpretation Comments Estimat Glomerular Filtration Rate (test code = 370931244) > 60 >60 Ranges were taken from the National Kidney Disease Education Program and the [facility] literature.Reference ranges:60 or greater: Srftvx04-13 ( for 3 consecutive months): Chronic kidney disease 15 or less: Kidney failureNocona General HospitalGlucose bxtapptzchf5435-81-20 05:10:00* Test Item Value Reference Range Interpretation Comments Glucose Level (test code = MCD3311) 310 74-118 [facility]er[facility] or plasma calcium measurement (mass/volume)2019-09-28 05:10:00* Test Item Value Reference Range Interpretation Comments Calcium Level (test code = 15226-5) 8.0 8.4-10.2 [facility]erum or plasma magnesium measurement (mass/volume)2019-09-28 05:10:00* Test Item Value Reference Range Interpretation Comments Magnesium Level (test code = 09974-2) 1.5 1.3-2.1 [facility] Hospitalerum or plasma total bilirubin measurement (mass/volume)2019-09-28 05:10:00* Test Item Value Reference Range Interpretation Comments Total Bilirubin (test code = 1975-2) 3.4 0.2-1.2 [facility] HospitalFluoroscopic procedure less than one hour bteaxcwu3835-41-73 05:10:00* Test Item Value Reference Range Interpretation Comments Aspartate Amino Transf (AST/SGOT) (test code = Aspartate Amino Transf (AST/SGOT)) 34 5-34 [facility] Hospitalerum or plasma alanine aminotransferase measurement (enzymatic activity/volume)2019-09-28 05:10:00* Test Item Value Reference Range Interpretation Comments Alanine Aminotransferase (ALT/SGPT) (test code = 1742-6) 28 0-55 [facility] Hospitalerum or plasma protein measurement (mass/volume)2019-09-28 05:10:00* Test Item Value Reference Range Interpretation Comments Total Protein (test code = 2885-2) 5.8 6.5-8.1 [facility] Hospitalerum or plasma albumin measurement (mass/volume)2019-09-28 05:10:00* Test Item Value Reference Range Interpretation Comments Albumin (test code = 1751-7) 1.9 3.5-5.0 [facility] HospitalPlasma globulin measurement (mass/volume) 2019-09-28 05:10:00* Test Item Value Reference Range Interpretation Comments Globulin (test code = 79637-9) 3.9 2.3-3.5 [facility] Hospitalerum or plasma albumin/globulin mass ndsfc1772-58-60 05:10:00* Test Item Value Reference Range Interpretation Comments Albumin/Globulin Ratio (test code = 1759-0) 0.5 0.8-2.0 [facility] Hospitalerum or plasma alkaline phosphatase measurement (enzymatic activity/volume)2019-09-28 05:10:00* Test Item Value Reference Range Interpretation Comments Alkaline Phosphatase (test code = 6768-6) 205 40-150 [facility] HospitalBlood leukocytes automated count (number/volume)2019-09-28 05:10:00* Test Item Value Reference Range Interpretation Comments White Blood Count (test code = 6690-2) 5.97 4.8-10.8 [facility] HospitalBlood erythrocytes automated count (number/volume)2019-09-28 05:10:00* Test Item Value Reference Range Interpretation Comments Red Blood Count (test code = 789-8) 3.44 3.6-5.1 [facility] HospitalBlood hemoglobin measurement (moles/volume)2019-09-28 05:10:00* Test Item Value Reference Range Interpretation Comments Hemoglobin (test code = 49637-2) 11.5 12.0-16.0 [facility] HospitalAutomated blood hematocrit (volume fraction)2019-09-28 05:10:00* Test Item Value Reference Range Interpretation Comments Hematocrit (test code = 4544-3) 35.1 34.2-44.1 [facility] HospitalAutomated erythrocyte mean corpuscular safisx3250-91-12 05:10:00* Test Item Value Reference Range Interpretation Comments Mean Corpuscular Volume (test code = 787-2) 102.0 81-99 [facility] HospitalAutomated erythrocyte mean corpuscular hemoglobin (mass per erythrocyte)2019-09-28 05:10:00* Test Item Value Reference Range Interpretation Comments Mean Corpuscular Hemoglobin (test code = 785-6) 33.4 28-32 [facility] HospitalAutomated erythrocyte mean corpuscular hemoglobin concentration measurement (mass/volume)2019-09-28 05:10:00* Test Item Value Reference Range Interpretation Comments Mean Corpuscular Hemoglobin Concent (test code = 786-4) 32.8 31-35 [facility] HospitalRDW IvkCf-Srn1378-90-05 05:10:00* Test Item Value Reference Range Interpretation Comments Red Cell Distribution Width (test code = 23661-1) 15.3 11.7 -14.4 [facility] HospitalAutomated blood platelet count (count/volume)2019-09-28 05:10:00* Test Item Value Reference Range Interpretation Comments Platelet Count (test code = 777-3) 77 140-360 [facility] HospitalAutomated blood segmented neutrophil count as percentage of total wmlkwoureh9765-47-17 05:10:00* Test Item Value Reference Range Interpretation Comments Neutrophils (%) (Auto) (test code = 76300-3) 52.2 38.7-80.0 [facility] HospitalAutomated blood lymphocyte count as percentage ot total ypxnhzewea1258-84-60 05:10:00* Test Item Value Reference Range Interpretation Comments Lymphocytes (%) (Auto) (test code = 736-9) 29.3 18.0-39.1 [facility] HospitalAutomated blood monocyte count as percentage of total vofmaoupxg4936-01-34 05:10:00* Test Item Value Reference Range Interpretation Comments Monocytes (%) (Auto) (test code = 5905-5) 12.2 4.4-11.3 [facility] HospitalAutomated blood eosinophil count as percentage of total iifiesyger7596-49-35 05:10:00* Test Item Value Reference Range Interpretation Comments Eosinophils (%) (Auto) (test code = 713-8) 5.5 0.0-6.0 [facility] HospitalAutomated blood basophil count as percentage of total clgbjajmku6937-43-82 05:10:00* Test Item Value Reference Range Interpretation Comments Basophils (%) (Auto) (test code = 706-2) 0.5 0.0-1.0 [facility] HospitalFluoroscopic procedure less than one hour trsxkony4292-81-08 05:10:00* Test Item Value Reference Range Interpretation Comments IM GRANULOCYTES % (test code = IM GRANULOCYTES %) 0.3 0.0- 1.0 [facility] HospitalAutomated blood neutrophil count 2019-09-28 05:10:00* Test Item Value Reference Range Interpretation Comments Neutrophils # (Auto) (test code = 751-8) 3.1 2.1-6.9 [facility] HospitalBlood lymphocytes count (number/volume) 2019-09-28 05:10:00* Test Item Value Reference Range Interpretation Comments Lymphocytes # (Auto) (test code = 70658-4) 1.8 1.0-3.2 [facility] HospitalBlood monocytes automated count (number/volume)2019-09-28 05:10:00* Test Item Value Reference Range Interpretation Comments Monocytes # (Auto) (test code = 742-7) 0.7 0.2-0.8 [facility] HospitalAutomated blood eosinophil count 2019-09-28 05:10:00* Test Item Value Reference Range Interpretation Comments Eosinophils # (Auto) (test code = 711-2) 0.3 0.0-0.4 [facility] HospitalAutomated blood basophil count (count/volume)2019-09-28 05:10:00* Test Item Value Reference Range Interpretation Comments Basophils # (Auto) (test code = 704-7) 0.0 0.0-0.1 [facility] HospitalFluoroscopic procedure less than one hour zrlopovf0289-77-42 05:10:00* Test Item Value Reference Range Interpretation Comments Absolute Immature Granulocyte (auto ([place] t code = Absolute Immature Granulocyte (auto) 0.02 0-0.1 [place] [facility] Hospital[facility] or plasma sodium measurement (moles/volume)2019-09-28 05:10:00* Test Item Value Reference Range Interpretation Comments Sodium Level (test code = 2951-2) 138 136-145 [place] [facility] Hospitalerum or plasma potassium measurement (moles/volume)2019-09-28 05:10:00* Test Item Value Reference Range Interpretation Comments Potassium Level (test code = 2823-3) 3.4 3.5-5.1 [place] [facility] Hospitalerum or plasma chloride measurement (moles/volume)2019-09-28 05:10:00* Test Item Value Reference Range Interpretation Comments Chloride Level (test code = 2075-0) 100 98-107 [place] [facility] Hospitalerum or plasma carbon dioxide, total measurement (moles/volume)2019-09-28 05:10:00* Test Item Value Reference Range Interpretation Comments Carbon Dioxide Level (test code = 2028-9) 33 22-29 [facility] Hospitalerum or plasma anion exr4145-15-70 05:10:00* Test Item Value Reference Range Interpretation Comments Anion Gap (test code = 66536-5) 8.4 8-16 [place] [facility] Hospitalerum or plasma urea nitrogen measurement (mass/volume)2019-09-28 05:10:00* Test Item Value Reference Range Interpretation Comments Blood Urea Nitrogen (test code = 3094-0) 7 7-26 [place] [facility] Hospitalerum or plasma creatinine measurement (mass/volume)2019-09-28 05:10:00* Test Item Value Reference Range Interpretation Comments Creatinine (test code = 2160-0) 0.90 0.57-1.11 [place] [facility] Hospitalerum or plasma urea nitrogen/creatinine mass fjvuv0945-53-04 05:10:00* Test Item Value Reference Range Interpretation Comments BUN/Creatinine Ratio (test code = 3097-3) 8 6-25 [facility] HospitalEstimated glomerular filtration rate (GFR) kmrrjbkpwxyal6966-13-53 05:10:00* Test Item Value Reference Range Interpretation Comments Estimat Glomerular Filtration Rate (test code = 317028547) > 60 >60 Ranges were taken from the National Kidney Disease Education Program and the [facility] Kidney Foundation literature.Reference ranges:60 or greater: Mfeucx99-17 ( for 3 consecutive months): Chronic kidney disease 15 or less: Kidney failureNocona General HospitalGlucose nwqgzrbjeag7652-49-86 05:10:00* Test Item Value Reference Range Interpretation Comments Glucose Level (test code = WKL9351) 310 74-118 [place] [facility] Hospitalerum or plasma calcium measurement (mass/volume)2019-09-28 05:10:00* Test Item Value Reference Range Interpretation Comments Calcium Level (test code = 18598-7) 8.0 8.4-10.2 [place] [facility] Hospitalerum or plasma magnesium measurement (mass/volume)2019-09-28 05:10:00* Test Item Value Reference Range Interpretation Comments Magnesium Level (test code = 66522-3) 1.5 1.3-2.1 [place] [facility] Hospitalerum or plasma total bilirubin measurement (mass/volume)2019-09-28 05:10:00* Test Item Value Reference Range Interpretation Comments Total Bilirubin (test code = 1975-2) 3.4 0.2-1.2 [facility] HospitalFluoroscopic procedure less than one hour hsnjgoqa5197-23-35 05:10:00* Test Item Value Reference Range Interpretation Comments Aspartate Amino Transf (AST/SGOT) (test code = Aspartate Amino Transf (AST/SGOT)) 34 5-34 [place] [facility] Hospitalerum or plasma alanine aminotransferase measurement (enzymatic activity/volume)2019-09-28 05:10:00* Test Item Value Reference Range Interpretation Comments Alanine Aminotransferase (ALT/SGPT) (test code = 1742-6) 28 0-55 [place] [facility] Hospitalerum or plasma protein measurement (mass/volume)2019-09-28 05:10:00* Test Item Value Reference Range Interpretation Comments Total Protein (test code = 2885-2) 5.8 6.5-8.1 [place] [facility] Hospitalerum or plasma albumin measurement (mass/volume)2019-09-28 05:10:00* Test Item Value Reference Range Interpretation Comments Albumin (test code = 1751-7) 1.9 3.5-5.0 [facility] HospitalPlasma globulin measurement (mass/volume) 2019-09-28 05:10:00* Test Item Value Reference Range Interpretation Comments Globulin (test code = 01976-5) 3.9 2.3-3.5 [place] [facility] Hospitalerum or plasma albumin/globulin mass xvfcj5948-31-44 05:10:00* Test Item Value Reference Range Interpretation Comments Albumin/Globulin Ratio (test code = 1759-0) 0.5 0.8-2.0 [place] [facility] Hospitalerum or plasma alkaline phosphatase measurement (enzymatic activity/volume)2019-09-28 05:10:00* Test Item Value Reference Range Interpretation Comments Alkaline Phosphatase (test code = 6768-6) 205 40-150 [facility] HospitalUS ABDOMEN NZBBJKT0686-07-74 16:14:00 [facility] [address], [place] [address] Patient Name: DEBORAH AGUERO MR #: [id number] : 1955 Age/Sex: 64/F Req #: [id number] Adm Physician: STORMY RYAN MD Ordered by: ALEX JOSEPH MD Report #: [id number] Location: MED/SURG2 Room/Bed: Procedure: [id number] US/US ABDOMEN TARI CHUN Exam Date: 09/27/19 Exam Time: 1539 REPORT STATUS: Signed Limited abdominal ul trasound History: Abdominal distention Comparison: CT chest abdomen a nd pelvis of 09/25/2019 Technique/findings: Limited ultrasound evaluation o f the abdomen was performed in all 4 quadrants. No visible ascites. The reques mal paracentesis was not performed. IMPRESSION: No visible ascites. Signed by: Jessica Ramirez MD on 09/27/2019 4:15 PM Dictated By: JESSIAC RAMIREZ MD 14 Transcribed By: KORI MCNEILL on 09/27/19 161 COPY TO: ALEX JOSEPH MD CHEST SINGLE (PORTABLE)2019-09-27 06:36:00 [place] [address] Patient Name: DEBORAH AGUERO MR #: [id number] : 1955 Age/Sex: 64/F Req #: [id number] Adm Physician: STORMY RYAN MD Ordered by: STORMY RYAN MD Report #: [id number] Location: MED/SURG2 Room/Bed: Procedure: [id number] DX/CHEST SINGLE ( PORTABLE) Exam Date: 09/27/19 Exam Time: 509 REPORT STATUS: Signed EXAMINATION: EST SINGLE (PORTABLE) INDICATION: [id number] COMPARISON: 09/26/2019 FINDINGS: AP view TUBES and LINES: No ne. LUNGS: Low lung volumes. Unchanged interstitial pulmonary edema. Unchan ged bilateral lower lobe opacities, likely atelectasis. PLEURA: Unchange d bilateral pleural effusions, right greater than left. HEART AND MEDIASTIN UM: Unchanged cardiomegaly. BONES AND SOFT TISSUES: No acute osseous lesio n. Soft tissues are unremarkable. UPPER ABDOMEN: No free air under the d iaphragm. IMPRESSION: Stable exam. Cardiomegaly with interstitial pu lmonary edema and bilateral pleural effusions suggestive of decompensated hear t failure. Signed by: Fortunato Arriola MD on 09/27/2019 6:37 AM Dict ated By: FORTUNATO ARRIOLA MD 6 COPY TO: STORMY RYAN MD CHEST SINGLE (PORTABLE)2019-09-26 06:20:00 [place] [address] Patient Name: DEBORAH AGUERO MR #: [id number] : 1955 Age/Sex: 64/F Req #: [id number] Adm Physician: STORMY RYAN MD Ordered by: STORMY RYAN MD Report #: [id number] Location: MED/SURG2 Room/Bed: [facility] Procedure: [id number] DX/CHEST SINGLE ( PORTABLE) Exam Date: 09/26/19 Exam Time: 0550 REPORT STATUS: Signed EXAMINATION: EST SINGLE (PORTABLE) INDICATION: Shortness of breath COMP ARISON: 09/25/2019 FINDINGS: AP view TUBES and LINES: None. LUNGS: Mildly increased perihilar interstitial opacities. Unchanged bibasilar consolidation, likely atelectasis. PLEURA: Unchanged bilateral pleural effusions, right greater than left. HEART AND MEDIASTINUM: Stable cardiom egaly. Fullness of the pulmonary vasculature. BONES AND SOFT TISSUES: No acute osseous lesion. Soft tissues are unremarkable. UPPER ABDOMEN: No free air under the diaphragm. IMPRESSION: Mild interval increase in perihilar interstitial edema. Unchanged bilateral lower lobe atelectasis. Unchanged bilateral pleural effusions, right greater than left. Stable car diomegaly. Signed by: Fortuntao Arriola MD on 09/26/2019 6:23 AM Dict ated By: FORTUNATO ARRIOLA MD 2 COPY TO: STORMY RYAN MD CT ABDOMEN/PELVIS [id number] 14:21:00 [place] [address] Patient Name: DEBORAH AGUERO MR #: [id number] : 1955 Age/Sex: 64/F Req #: [id number] Adm Physician: Ordered by: ADONIS MATHEW Report #: [id number] Location: ER Room/Bed: Procedure: [id number] CT/CT ABDOMEN/PEL VIS W Exam Date: 09/25/19 Exam Time: 1315 REPORT STATUS: Signed EXAMINATION: CT of t he abdomen and pelvis with contrast. TECHNIQUE: Spiral CT images of the abdomen and pelvis were performed from the lung bases to the lesser trochanter s after the intravenous administration of 100 cc of Isovue 370 and the oral ad ministration of water. Coronal and sagittal reformatted images were obtained. COMPARISON: CT abdomen and pelvis 09/22/2019, 09/20/2019, 07/19/2019 CLI NICAL HISTORY:Abdominal distention DISCUSSION: ABDOMEN/PELVIS: LOWER THORAX:Please see CT chest performed same date for further detail. HEPATOBILIARY: Shrunken nodular liver consistent with cirrhosis. No focal le sions. No intra or extrahepatic biliary ductal dilation. GALLBLADDER: [place] cystectomy clips. SPLEEN: No splenomegaly. PANCREAS: No focal mas ses or ductal dilatation. ADRENALS: No adrenal nodules. KIDNEYS/URETE RS: No hydronephrosis, stones, or solid mass lesions. PELVIC ORGANS/BLADDER : Bladder is unremarkable. Uterus is unremarkable. No adnexal masses. PER ITONEUM/RETROPERITONEUM: Slight interval increase in pelvic ascites. A small a mount of free fluid is noted along the mesenteric leaves (for example series 6 , image 49) LYMPH NODES: No intra-abdominal, retroperitoneal, pelvic or ing uinal lymphadenopathy. VESSELS: The celiac trunk,superior and inferior me senteric and bilateral renal arteries are patent The portal, superior mesent lis and splenic veins are patent. Collateral circulation in the form of a rec analized umbilical vein as well as a splenorenal shunt. GI TRACT: No ar l dilation or evidence of obstruction. No pericolonic inflammatory changes. BONES AND SOFT TISSUE: No aggressive lytic lesions. Generalized anasarca, which is increased since the prior exam. IMPRESSION: 1. No bowel dila tion or evidence of obstruction. 2. Cirrhotic liver with evidence of portal hypertension. Slight interval increase in ascites and worsening generalized s oft tissue edema. No focal hepatic lesions. 3. Please note that this is t he patient's third CT abdomen and pelvis since 09/20/2019, and the fourth exam since 07/19/2019 for same symptoms. Signed by: Dr. Mike Lozano M.D. o hieu 09/25/2019 2:30 PM Dictated By: MIKE LOZANO MD 1430 Transcribed By: LIV on 09/25/19 1430 COPY TO: ADONIS MATHEW CT CHEST [id number] 14:08:00 [place] [address] Patient Name: DEBORAH AGUERO MR #: [id number] : 1955 Age/Sex: 64/F Req #: [id number] Adm Physician: Ordered by: ADONIS MATHEW Report #: [id number] Location: ER Room/Bed: Procedure: [id number] CT/CT CHEST W Ex am Date: 09/25/19 Exam Time: 1315 REPORT STATUS: Signed EXAMINATION: CT of the chest with contrast, PE protocol. TECHNIQUE: Spiral CT images of the chest were performed from the lung apices through the level of the adrenal glands after t he IV administration of 100 cc of Isovue 370. Thin section reconstructions we re obtained with special concentration on the pulmonary arteries. Coronal and sagittal reformatted images were also performed. COMPARISON: CT chest 06/26 CLINICAL HISTORY:Shortness of breath DISCUSSION: Lung s: No filling defects are identified in the main, right or left pulmonary ar teries to their segmental levels, to suggest pulmonary embolism. Interval wo rsening of right lower lobe compressive atelectasis. Interval development of r ight middle lobe wedge-shaped consolidation, likely reflecting compressive ate lectasis. Stable compressive atelectasis of the left lower lobe. Aerated por tions of the lungs show no nodules or masses. Airways are clear, without any e ndobronchial lesions. Pleura: Interval worsening of right pleural effus ion, which is now moderate. Stable small left pleural effusion. Heart and mediastinum: Comparison unremarkable. Heart size is normal. Atherosclerotic calcification of the mitral annulus and thoracic aortic arch. No pericardial effusion. Aorta is nonaneurysmal. Main pulmonary artery is enlarged, measuring 3.2 cm. Lymph nodes: No mediastinal, hilar or axillary adenopathy. Abdomen: Please see CT abdomen and pelvis performed same date for further d etail. Bones and soft tissues: No aggressive lytic lesion. Soft tissue edema. No interval change in bilateral breasts mild skin thickening. No focal masses are noted. Stable 3-4 mm calcification in the right breast, which may r epresent a calcified fibroadenoma. IMPRESSION: 1. No pulmonary embo li to the segmental level. 2. Interval worsening of right pleural effusion, wh ich is now moderate, which results in worse right lower lobe and new right mi ddle lobe compressive atelectasis. 3. Stable left pleural effusion and assoc iated compressive atelectasis of the left lower lobe. 4. Enlargement pulmona ry arteries suggesting pulmonary hypertension. 5. No interval change in bilate ral breast skin thickening. Correlate with mammography. Signed b y: Dr. Mike Lozano M.D. on 09/25/2019 2:19 PM Dictated By: MIKE SANTANA MD 1419 Transcri bed By: LIV on 09/25/19 141 COPY TO: ADONIS MATHEW CHEST SINGLE (PORTABLE)2019-09-25 11:21:00 [place] [address] Patient Name: DEBORAH AGUERO MR #: [id number] : 1955 Age/Sex: 64/F Req #: [id number] Adm Physician: Ordered by: ADONIS MATHEW Report #: [id number] Location: ER Room/Bed: Procedure: [id number] DX/CHEST SINGLE ( PORTABLE) Exam Date: 09/25/19 Exam Time: 1050 REPORT STATUS: Signed Examination: Sin gle AP view of the chest. COMPARISON: Portable chest 09/23/2019 INDICAT ION: Shortness of breath IMPRESSION: 1. Lines and Tubes: None 2. Lungs are well-inflated. Blunting of the left costophrenic sulcus with obs curation of the right hemidiaphragm and right lower lobe opacity, consistent w ith pleural effusion and likely associated atelectasis or consolidation. 3. C ardiomediastinal silhouette is normal. Central pulmonary venous congestion an d mild perihilar interstitial edema. 4. No acute bony abnormalities. Sig rosa by: Dr. Mike Lozano M.D. on 09/25/2019 11:28 AM Dictated By: CLIVE LOZANO MD 27 Tr anscribed By: LIV on 09/25/191127 COPY TO: ADONIS MATHEW Urine color sseohcimmupfd6198-14-62 11:17:00* Test Item Value Reference Range Interpretation Comments Urine Color (test code = 5778-6) YELLOW YELLOW [facility] HospitalU[facility] npnygek2963-44-29 11:17:00* Test Item Value Reference Range Interpretation Comments Urine Clarity (test code = 14489-5) CLEAR CLEAR [facility] gravity of Urine by Test strip 2019-09-25 11:17:00* Test Item Value Reference Range Interpretation Comments Urine Specific [place] (test code = 5811-5) 1.025 1.010-1.02 5 [facility] pH measurement by automated test fmrjl9295-83-55 11:17:00* Test Item Value Reference Range Interpretation Comments Urine pH (test code = 50365-7) 6.5 5-7 [facility] HospitalU[facility] leukocyte esterase detection by nxemrnla9626-76-92 11:17:00* Test Item Value Reference Range Interpretation Comments Urine Leukocyte Esterase (test code = 5799-2) NEGATIVE NEGATIVE [facility] HospitalUrine nitrite ksbstngvn8243-95-17 11:17:00* Test Item Value Reference Range Interpretation Comments Urine Nitrite (test code = 89042-5) NEGATIVE NEGATIVE [facility] HospitalUrine protein measurement by test strip (mass/volume)2019-09-25 11:17:00* Test Item Value Reference Range Interpretation Comments Urine Protein (test code = 5804-0) NEGATIVE NEGATIVE [facility] HospitalUrine glucose cprcokwvg0159-68-59 11:17:00* Test Item Value Reference Range Interpretation Comments Urine Glucose (UA) (test code = 2349-9) 2+ NEGATIVE [facility] HospitalUrine ketones detection by automated test lwbnr0145-00-39 11:17:00* Test Item Value Reference Range Interpretation Comments Urine Ketones (test code = 69311-6) NEGATIVE NEGATIVE [facility] HospitalUrine urobilinogen measurement by test strip (mass/volume)2019-09-25 11:17:00* Test Item Value Reference Range Interpretation Comments Urine Urobilinogen (test code = 60464-7) 0.2 0.2-1 [facility] HospitalU[facility] total bilirubin measurement (mass/volume)2019-09-25 11:17:00* Test Item Value Reference Range Interpretation Comments Urine Bilirubin (test code = 1978-6) NEGATIVE NEGATIVE [facility] HospitalUrine erythrocytes eecxneygr9682-62-51 11:17:00* Test Item Value Reference Range Interpretation Comments Urine Blood (test code = 87326-1) TRACE NEGATIVE [facility] HospitalAutomated urine sediment leukocyte count by microscopy (number/high power field)2019-09-25 11:17:00* Test Item Value Reference Range Interpretation Comments Urine WBC (test code = 5821-4) 0-5 0-5 [facility] HospitalErythrocytes detection in urine sediment by light ziutgvvexx7336-90-35 11:17:00* Test Item Value Reference Range Interpretation Comments Urine RBC (test code = 62014-8) 0-5 0-5 [facility] HospitalBacteria detection in urine sediment by light mllsgcyypk6064-60-14 11:17:00* Test Item Value Reference Range Interpretation Comments Urine Bacteria (test code = 79525-9) FEW NONE [facility] HospitalEpithelial cells detection in urine sediment by light rgmssiiams0752-31-24 11:17:00* Test Item Value Reference Range Interpretation Comments Urine Epithelial Cells (test code = 48041-8) FEW NONE [facility] HospitalUrine color hqlcbvparaoev9585-49-72 11:17:00* Test Item Value Reference Range Interpretation Comments Urine Color (test code = 5778-6) YELLOW YELLOW [facility] HospitalUrine encszcq4340-07-84 11:17:00* Test Item Value Reference Range Interpretation Comments Urine Clarity (test code = 07521-8) CLEAR CLEAR [place] [facility] Hospitalpecific gravity of Urine by Test strip 2019-09-25 11:17:00* Test Item Value Reference Range Interpretation Comments Urine Specific [place] (test code = 5811-5) 1.025 1.010-1.02 5 [facility] HospitalU[facility] pH measurement by automated test jggva0040-78-86 11:17:00* Test Item Value Reference Range Interpretation Comments Urine pH (test code = 12217-5) 6.5 5-7 [facility] HospitalUrine leukocyte esterase detection by jlyfpusp9493-15-73 11:17:00* Test Item Value Reference Range Interpretation Comments Urine Leukocyte Esterase (test code = 5799-2) NEGATIVE NEGATIVE [facility] HospitalUrine nitrite xrxbicmem3573-88-82 11:17:00* Test Item Value Reference Range Interpretation Comments Urine Nitrite (test code = 33643-6) NEGATIVE NEGATIVE [facility] HospitalUrine protein measurement by test strip (mass/volume)2019-09-25 11:17:00* Test Item Value Reference Range Interpretation Comments Urine Protein (test code = 5804-0) NEGATIVE NEGATIVE [facility] HospitalUrine glucose ealbthjwt3624-67-07 11:17:00* Test Item Value Reference Range Interpretation Comments Urine Glucose (UA) (test code = 2349-9) 2+ NEGATIVE [facility] HospitalUrine ketones detection by automated test tguxh8137-24-28 11:17:00* Test Item Value Reference Range Interpretation Comments Urine Ketones (test code = 74776-1) NEGATIVE NEGATIVE [facility] HospitalUrine urobilinogen measurement by test strip (mass/volume)2019-09-25 11:17:00* Test Item Value Reference Range Interpretation Comments Urine Urobilinogen (test code = 96449-7) 0.2 0.2-1 [facility] HospitalUrine total bilirubin measurement (mass/volume)2019-09-25 11:17:00* Test Item Value Reference Range Interpretation Comments Urine Bilirubin (test code = 1978-6) NEGATIVE NEGATIVE [facility] HospitalUrine erythrocytes qikywznfw1799-11-36 11:17:00* Test Item Value Reference Range Interpretation Comments Urine Blood (test code = 62818-4) TRACE NEGATIVE [facility] HospitalAutomated urine sediment leukocyte count by microscopy (number/high power field)2019-09-25 11:17:00* Test Item Value Reference Range Interpretation Comments Urine WBC (test code = 5821-4) 0-5 0-5 [facility] HospitalErythrocytes detection in urine sediment by light pvpyzqxsky9140-88-00 11:17:00* Test Item Value Reference Range Interpretation Comments Urine RBC (test code = 24151-3) 0-5 0-5 [facility] HospitalBacteria detection in urine sediment by light exfscufgez5740-87-97 11:17:00* Test Item Value Reference Range Interpretation Comments Urine Bacteria (test code = 47537-1) FEW NONE [facility] HospitalEpithelial cells detection in urine sediment by light wtyarpchzp4197-21-53 11:17:00* Test Item Value Reference Range Interpretation Comments Urine Epithelial Cells (test code = 16964-3) FEW NONE [facility] HospitalUrine color ojlsiifaisxga5077-54-08 11:17:00* Test Item Value Reference Range Interpretation Comments Urine Color (test code = 5778-6) YELLOW YELLOW [facility] HospitalUrine jmramyq9091-73-38 11:17:00* Test Item Value Reference Range Interpretation Comments Urine Clarity (test code = 22332-8) CLEAR CLEAR [place] [facility] Hospitalpecific gravity of Urine by Test strip 2019-09-25 11:17:00* Test Item Value Reference Range Interpretation Comments Urine Specific [place] (test code = 5811-5) 1.025 1.010-1.02 5 [facility] HospitalUrine pH measurement by automated test xevse9301-69-28 11:17:00* Test Item Value Reference Range Interpretation Comments Urine pH (test code = 39720-8) 6.5 5-7 [facility] HospitalUrine leukocyte esterase detection by jelyjkka0186-66-30 11:17:00* Test Item Value Reference Range Interpretation Comments Urine Leukocyte Esterase (test code = 5799-2) NEGATIVE NEGATIVE [facility] HospitalUrine nitrite xhhboimgh0278-22-25 11:17:00* Test Item Value Reference Range Interpretation Comments Urine Nitrite (test code = 28831-5) NEGATIVE NEGATIVE [facility] HospitalUrine protein measurement by test strip (mass/volume)2019-09-25 11:17:00* Test Item Value Reference Range Interpretation Comments Urine Protein (test code = 5804-0) NEGATIVE NEGATIVE [facility] HospitalUrine glucose ahjbvweqx4243-28-52 11:17:00* Test Item Value Reference Range Interpretation Comments Urine Glucose (UA) (test code = 2349-9) 2+ NEGATIVE [facility] HospitalUrine ketones detection by automated test ehowd7110-05-32 11:17:00* Test Item Value Reference Range Interpretation Comments Urine Ketones (test code = 64868-0) NEGATIVE NEGATIVE [facility] HospitalUrine urobilinogen measurement by test strip (mass/volume)2019-09-25 11:17:00* Test Item Value Reference Range Interpretation Comments Urine Urobilinogen (test code = 30490-1) 0.2 0.2-1 [facility] HospitalUrine total bilirubin measurement (mass/volume)2019-09-25 11:17:00* Test Item Value Reference Range Interpretation Comments Urine Bilirubin (test code = 1978-6) NEGATIVE NEGATIVE [facility] HospitalUrine erythrocytes ulwvzaylz9495-48-49 11:17:00* Test Item Value Reference Range Interpretation Comments Urine Blood (test code = 30012-1) TRACE NEGATIVE [facility] HospitalAutomated urine sediment leukocyte count by microscopy (number/high power field)2019-09-25 11:17:00* Test Item Value Reference Range Interpretation Comments Urine WBC (test code = 5821-4) 0-5 0-5 [facility] HospitalErythrocytes detection in urine sediment by light jvvdbkpxvn0063-96-26 11:17:00* Test Item Value Reference Range Interpretation Comments Urine RBC (test code = 54349-0) 0-5 0-5 [facility] HospitalBacteria detection in urine sediment by light iftkgaevzn3213-25-74 11:17:00* Test Item Value Reference Range Interpretation Comments Urine Bacteria (test code = 72089-8) FEW NONE [facility] HospitalEpithelial cells detection in urine sediment by light stmjvcxogo0548-05-09 11:17:00* Test Item Value Reference Range Interpretation Comments Urine Epithelial Cells (test code = 08525-2) FEW NONE [facility] HospitalProthrombin time (PT) in platelet poor plasma by coagulation pmoty9602-31-64 11:00:00* Test Item Value Reference Range Interpretation Comments Prothrombin Time (test code = 5902-2) 19.0 11.9-14.5 [facility] HospitalINR in Platelet poor plasma by Coagulation jgsyg1711-52-35 11:00:00* Test Item Value Reference Range Interpretation Comments Prothromb Time International Ratio (test code = 6301-6) 1.49 Oral Anticoagulant Therapy INR Values:1. Low Intensity Therapy 1.5 - 2.02 . Moderate Intensity Therapy 2.0 - 3.03. High Intensity Therapy(1) 2.5 - 3. 54. High Intensity Therapy(2) 3.0 - 4.05. Panic Value INR > 5.0 [facility] HospitalBNP Zan-rQno5598-58-02 11:00:00* Test Item Value Reference Range Interpretation Comments B-Type Natriuretic Peptide (test code = 38187-6) 281.2 0-100 [facility] Hospitalerum or plasma creatine kinase measurement (enzymatic activity/volume)2019-09-25 11:00:00* Test Item Value Reference Range Interpretation Comments Creatine Kinase (test code = 2157-6) 65 29-168 [facility] Hospitalerum or plasma creatine kinase MB measurement (mass/volume)2019-09-25 11:00:00* Test Item Value Reference Range Interpretation Comments Creatine Kinase MB (test code = 99738-0) 2.00 0-5.0 [facility] HospitalTroponin I measurement by highly sensitive enzyme okigxxwivbr2117-27-21 11:00:00* Test Item Value Reference Range Interpretation Comments Troponin I (test code = 68910-7) < 0.001 0-0.300 [facility] Hospitalerum or plasma lipase measurement (enzymatic activity/volume)2019-09-25 11:00:00* Test Item Value Reference Range Interpretation Comments Lipase (test code = 3040-3) 31 8-78 [facility] HospitalProthrombin time (PT) in platelet poor plasma by coagulation qribo1153-86-46 11:00:00* Test Item Value Reference Range Interpretation Comments Prothrombin Time (test code = 5902-2) 19.0 11.9-14.5 [facility] HospitalINR in Platelet poor plasma by Coagulation bdpds0463-21-07 11:00:00* Test Item Value Reference Range Interpretation Comments Prothromb Time International Ratio (test code = 6301-6) 1.49 Oral Anticoagulant Therapy INR Values:1. Low Intensity Therapy 1.5 - 2.02 . Moderate Intensity Therapy 2.0 - 3.03. High Intensity Therapy(1) 2.5 - 3. 54. High Intensity Therapy(2) 3.0 - 4.05. Panic Value INR > 5.0 [facility] HospitalBNP Giu-yHnq8920-09-02 11:00:00* Test Item Value Reference Range Interpretation Comments B-Type Natriuretic Peptide (test code = 11099-6) 281.2 0-100 [facility] Hospitalerum or plasma creatine kinase measurement (enzymatic activity/volume)2019-09-25 11:00:00* Test Item Value Reference Range Interpretation Comments Creatine Kinase (test code = 2157-6) 65 29-168 [facility] Hospitalerum or plasma creatine kinase MB measurement (mass/volume)2019-09-25 11:00:00* Test Item Value Reference Range Interpretation Comments Creatine Kinase MB (test code = 41664-5) 2.00 0-5.0 [facility] HospitalTroponin I measurement by highly sensitive enzyme xmkrwuhuluv2504-74-10 11:00:00* Test Item Value Reference Range Interpretation Comments Troponin I (test code = 70741-4) < 0.001 0-0.300 [facility] Hospitalerum or plasma lipase measurement (enzymatic activity/volume)2019-09-25 11:00:00* Test Item Value Reference Range Interpretation Comments Lipase (test code = 3040-3) 31 8-78 [facility] HospitalProthrombin time (PT) in platelet poor plasma by coagulation kgypn5811-80-62 11:00:00* Test Item Value Reference Range Interpretation Comments Prothrombin Time (test code = 5902-2) 19.0 11.9-14.5 [facility] HospitalINR in Platelet poor plasma by Coagulation oyruw0866-28-82 11:00:00* Test Item Value Reference Range Interpretation Comments Prothromb Time International Ratio (test code = 6301-6) 1.49 Oral Anticoagulant Therapy INR Values:1. Low Intensity Therapy 1.5 - 2.02 . Moderate Intensity Therapy 2.0 - 3.03. High Intensity Therapy(1) 2.5 - 3. 54. High Intensity Therapy(2) 3.0 - 4.05. Panic Value INR > 5.0 [facility] HospitalBNP Qtp-fPtt1781-43-02 11:00:00* Test Item Value Reference Range Interpretation Comments B-Type Natriuretic Peptide (test code = 78935-9) 281.2 0-100 [facility] Hospitalerum or plasma creatine kinase measurement (enzymatic activity/volume)2019-09-25 11:00:00* Test Item Value Reference Range Interpretation Comments Creatine Kinase (test code = 2157-6) 65 29-168 [facility] Hospitalerum or plasma creatine kinase MB measurement (mass/volume)2019-09-25 11:00:00* Test Item Value Reference Range Interpretation Comments Creatine Kinase MB (test code = 53716-8) 2.00 0-5.0 [facility] HospitalTroponin I measurement by highly sensitive enzyme nhfpgwdmibh6065-89-93 11:00:00* Test Item Value Reference Range Interpretation Comments Troponin I (test code = 49197-1) < 0.001 0-0.300 [facility] Hospitalerum or plasma lipase measurement (enzymatic activity/volume)2019-09-25 11:00:00* Test Item Value Reference Range Interpretation Comments Lipase (test code = 3040-3) 31 8-78 [facility] HospitalCHEST SINGLE (PORTABLE)2019-09-23 10:22:00 [facility] [address] [address] Patient Name: DEBORAH AGUERO MR #: [id number] : 1955 Age/Sex: 64/F Req #: [id number] Adm Physician: STORMY RYAN MD Ordered by: STORMY RYAN MD Report #: [id number] Location: [facility]/SURG2 Room/Bed: [facility] Procedure: [id number] DX/CHEST SINGLE ( PORTABLE) Exam Date: 09/23/19 Exam Time: 0743 REPORT STATUS: Signed X-ray chest AP p ortable Comparison: 09/20/2019 History: Chest pain. Shortness of breath . Findings: Central airways unremarkable. Cardiomegaly. Atherosclerotic aor ta. No definite pleural effusion. No pneumothorax. There is poor inspiratory e ffort that leads to crowding of pulmonary vascular markings. Otherwise, there is no focal airspace or interstitial disease or lung nodules. No acute skeleta l changes visualized. Impression: No acute cardiopulmonary disease. Signed by: Godwin So MD on 09/23/2019 10:24 AM Dictated By: GODWIN BENAVIDES MD 1024 Transc ribed By: LIV on 09/23/19 1024 COPY TO: STORMY RYAN MD CT ABDOMEN/PELVIS [id number] 16:28:[address] [address] Patient Name: DEBORAH AGUERO MR #: [id number] : 1955 Age/Sex: 64/F Req #: [id number] Adm Physician: STORMY RYAN MD Ordered by: STORMY RYAN MD Report #: [id number] Location: MED/SURG2 Room/Bed: [facility] Procedure: [id number] CT/CT ABDOMEN/PEL VIS W Exam Date: 09/22/19 Exam Time: 1230 REPORT STATUS: Signed EXAM: CT Abdomen and Pelvis WITH intravenous contrast INDICATION: Fever, abdominal pain COMPARISON: CT abdomen and pelvis of 09/20/2019 TECHNIQUE: Abdomen and pelvi s were scanned utilizing a multidetector helical scanner from the lung base to the pubic symphysis after administration of IV contrast. Coronal and sagittal reformations were obtained. Routine protocol was performed. Scan was performed during portal venous phase. IV CONTRAST: 100mL of Isovue 370 ORAL CONTRAST: Gastrografin RADIATION DOSE: Total DLP: 797 mGy*cm Dose m odulation, iterative reconstruction, and/or weight based adjustment of the mA/ kV was utilized to reduce the radiation dose to as low as reasonably achievabl e. FINDINGS: LOWER THORAX: Right and left lower lobe dependent subsegmen giuseppe atelectasis. Right greater than left small bilateral pleural effusions. HEPATOBILIARY: Nodular liver surface contour compatible with hepatic cirrhosi s. Extensive left abdominal portosystemic varices including a very large spl enorenal shunt. Hepatic steatosis. No biliary ductal dilation. Status post cho lecystectomy. SPLEEN: No splenomegaly. PANCREAS: No focal masses or du ctal dilatation. ADRENALS: No adrenal nodules. KIDNEYS/URETERS: No hydron ephrosis, stones, or solid mass lesions. PELVIC ORGANS/BLADDER: Unremarkable. PERITONEUM / RETROPERITONEUM: No free air or fluid. LYMPH NODES: No lymph adenopathy. VESSELS: Moderate atherosclerotic calcifications of the nonaneurys mal abdominal aorta and major branches. GI TRACT: No abnormal bowel thick ening. No bowel obstruction. BONES AND SOFT TISSUES: No acute osseous injur y. No suspicious lytic or blastic lesions. Mild diffuse subcutaneous soft tiss ue edema. IMPRESSION: Hepatic cirrhosis and sequela of portal hypertensi on including a very prominent portosystemic splenorenal shunt. No abnorma l bowel thickening or bowel obstruction. No intra-abdominal abscess. Small bilateral pleural effusions. Signed by: Jessica Ramirez MD on 09/22/2019 4:35 PM Dictated By: JESSICA RAMIREZ MD 163 Transcribed By: LIV on 09/22/19 1635 COPY TO: CARL RYAN MD Serum or plasma thyrotropin measurement by detection limit <= 0.005 miu/l (units/volume)2019-09-22 05:10:00* Test Item Value Reference Range Interpretation Comments Thyroid Stimulating Hormone (TSH) (test code = 34967-3) 3.619 0.350-4.940 [facility] Hospitalerum or plasma thyrotropin measurement by detection limit <= 0.005 miu/l (units/volume)2019-09-22 05:10:00* Test Item Value Reference Range Interpretation Comments Thyroid Stimulating Hormone (TSH) (test code = 36811-1) 3.619 0.350-4.940 [facility] Hospitalerum or plasma thyrotropin measurement by detection limit <= 0.005 miu/l (units/volume)2019-09-22 05:10:00* Test Item Value Reference Range Interpretation Comments Thyroid Stimulating Hormone (TSH) (test code = 15188-8) 3.619 0.350-4.940 [facility] HospitalCT [facility]BDOMEN/PELVIS PQ1283-43-91 23:54:00 [facility] [address] [address] Patient Name: DEBORAH AGUERO MR #: [id number] : 1955 Age/Sex: 64/F Req #: [id number] Adm Physician: Ordered by: RAMU PATEL MD Report #: [id number] Location: ER Room/Bed: Procedure: [id number] CT/CT ABDOMEN/PELVIS WO Exam Date: 09/20/19 Exam Ti me: 2325 REPORT STATUS: Signed E XAM: CT Abdomen and Pelvis WITHOUT contrast INDICATION: koki mike de [place] ever [id number] 2324 Y COMPARISON: None. TECHNIQUE: Abdomen and pelv is were scanned utilizing a multidetector helical scanner from the lung base t o the pubic symphysis without administration of IV contrast. Absence of intrav enous contrast decreases sensitivity for detection of focal lesions and vascul ar pathology. Coronal and sagittal reformations were obtained. Routine protoco l was performed. IV CONTRAST: None ORAL CONTRAST: None COMPLICATIONS: None RADIATION DOSE: Total DLP: 962 mGy*cm Estimated effective dose: (DLP x 0.015 x size factor) mSv CTDIvol has been reviewed. It is below the limits set by the Radiation Protocol Committee (RPC). Dose modulation, iterative reconstruction, and/or weight based ad justment of the mA/kV was utilized to reduce the radiation dose to as low as r easonably achievable. FINDINGS: LINES and TUBES: None. LOWER T HORAX: Bilateral pleural effusions, moderate right and small left. Coronary a rtery calcifications. HEPATOBILIARY: Subtly nodular contour of the liver. N o gross hepatic lesion. No focal hepatic lesions. No biliary ductal dilation. The umbilical vein is prominent and may be recanalized. GALLBLADDER: Surg ically absent. SPLEEN: The spleen is at the upper limit of normal in size a nd measures up to 13 cm in AP dimension. PANCREAS: No focal masses or saturnino giuseppe dilatation. ADRENALS: No adrenal nodules KIDNEYS/URETERS: N o hydronephrosis. No cystic or solid mass lesions. Punctate left intrarenal c alculus. GI TRACT: Suboptimally evaluated due to lack of intravenous and or al contrast. Suggestion of a short segment loop of thickened jejunum (image 29 series 2). This segment of bowel measures up to 3.5 cm in caliber. Mild colon ic diverticulosis. PELVIC ORGANS/BLADDER: Grossly unremarkable. LYMP H NODES: No gross adenopathy. VESSELS: Scattered vascular calcifications. S uboptimally evaluated due to lack of intravenous contrast. Prominent vessels w ithin the left abdomen near the left renal vein and spleen suggestive of a spl enorenal shunt. PERITONEUM / RETROPERITONEUM: Trace amount of free fluid in the deep pelvis. Mild nonspecific mesenteric fat stranding. BONES: No ac aviva osseous abnormalities. SOFT TISSUES: Mild soft tissue fat stranding. IMPRESSION: 1. Substantially limited study due to lack of int ravenous and oral contrast enhancement. 2. Suggestion of a short segment loop of thickened jejunum within the abdominal left upper quadrant. Different ial considerations include focal enteritis, focal intussusception, and maligna ncy. A more sensitive imaging evaluation may be obtained with CT imaging utili zing intravenous and oral contrast. 3. Cirrhotic morphology of the liver . Suggestion of portal hypertension as illustrated by probable recanalization of the umbilical vein and a probable prominent splenorenal shunt. 4. Vol ume overload as characterized by bilateral pleural effusions, trace ascites, a nd mild soft tissue edema. Signed by: Fortunato Arriola MD on 09/21/2019 12:08 AM Dictated By: FORTUNATO ARRIOLA MD Transcribed By: LIV on 09/21/197 COPY TO: RAMU PATEL MD Bacterial urine wqaldep0245-45-64 23:18:00* Test Item Value Reference Range Interpretation Comments Urine Culture (test code = 630-4) STAPHYLOCOCCUS AUREUS [facility] HospitalBacterial urine tbupytd4530-55-83 23:18:00* Test Item Value Reference Range Interpretation Comments Urine Culture (test code = 630-4) STAPHYLOCOCCUS AUREUS [facility] HospitalBacterial urine bvvqptv5547-54-69 23:18:00* Test Item Value Reference Range Interpretation Comments Urine Culture (test code = 630-4) STAPHYLOCOCCUS AUREUS [facility] HospitalFluoroscopic procedure less than one hour rsbldtgp6816-27-82 22:40:00* Test Item Value Reference Range Interpretation Comments Lactic Acid Level (test code = Lactic Acid Level) 1.8 0.5- 2.0 [facility] HospitalFluoroscopic procedure less than one hour mtthdrsr6693-63-92 22:40:00* Test Item Value Reference Range Interpretation Comments Lactic Acid Level (test code = Lactic Acid Level) 1.8 0.5- 2.0 [facility] HospitalFluoroscopic procedure less than one hour dharwiwn0281-00-17 22:40:00* Test Item Value Reference Range Interpretation Comments Lactic Acid Level (test code = Lactic Acid Level) 1.8 0.5- 2.0 [facility] HospitalCHEST SINGLE (PORTABLE)2019-09-20 22:05:00 [address] [address] Patient Name: DEBORAH AGUERO MR #: [id number] : 1955 Age/Sex: 64/F Req #: [id number] Adm Physician: Ordered by: RAMU PATEL MD Report #: [id number] Location: ER Room/Bed: Procedure: [id number] DX/CHEST SINGLE (PORTABLE) Exam Date: 09/20/19 Exam Time: 2139 REPORT STATUS: Signed EXAMINATION: CHEST SINGLE (PORTABLE) INDICATION: fever 2 [id number] 2140 Y COMPARISON: None FINDINGS: AP view TUBES and LINES: None. LUNGS: Lungs are well inflated. Lungs are clear. There is no evidence of pneumonia or pulmonary edema. PLEURA: No pleural effusion or pneumothorax. HEART AND MEDIASTINUM: The cardiomediastinal s ilhouette is unremarkable. BONES AND SOFT TISSUES: No acute osseous le gelacio. Soft tissues are unremarkable. UPPER ABDOMEN: No free air under th e diaphragm. IMPRESSION: No acute thoracic radiographic abnormality. Signed by: Fortunato Arriola MD on 09/20/2019 10:06 PM Dictated By: FORTUNATO ARRIOLA MD 05 Transcribed By: LIV on 09/20/192205 COPY TO: RAMU PATEL MD Blood ozhtxke9999-36-96 21:42:00* Test Item Value Reference Range Interpretation Comments Blood Culture (test code = 02160057) NO GROWTH AFTER 5 DAYS, FINAL REPORT [facility] HospitalBlood jxwlxks2191-31-06 21:42:00* Test Item Value Reference Range Interpretation Comments Blood Culture (test code = 07433640) NO GROWTH AFTER 5 DAYS, FINAL REPORT [facility] HospitalBlood kgjmbjx3732-13-84 21:42:00* Test Item Value Reference Range Interpretation Comments Blood Culture (test code = 58989067) NO GROWTH AFTER 5 DAYS, FINAL REPORT [facility] HospitalActivated partial thromboplastin time (aPTT) in platelet poor plasma by coagulation ijwxx1406-77-75 21:25:00* Test Item Value Reference Range Interpretation Comments Activated Partial Thromboplast Time (test code = 57536-5) 35.4 23.8-35.5 [facility] HospitalAmmonia Ahe-dWjn0510-57-27 21:25:00* Test Item Value Reference Range Interpretation Comments Ammonia (test code = 75050-0) 117 31-123 [facility] Hospitalerum or plasma amylase measurement (enzymatic activity/volume)2019-09-20 21:25:00* Test Item Value Reference Range Interpretation Comments Amylase Level (test code = 1798-8) 33 25-125 [facility] HospitalActivated partial thromboplastin time (aPTT) in platelet poor plasma by coagulation enmvc9318-19-81 21:25:00* Test Item Value Reference Range Interpretation Comments Activated Partial Thromboplast Time (test code = 61487-6) 35.4 23.8-35.5 [facility]2020-04-27 21:25:00* Test Item Value Reference Range Interpretation Comments Ammonia (test code = 50210-0) 117 31-123 [facility] Hospitalerum or plasma amylase measurement (enzymatic activity/volume)2019-09-20 21:25:00* Test Item Value Reference Range Interpretation Comments Amylase Level (test code = 1798-8) 33 25-125 [facility] HospitalActivated partial thromboplastin time (aPTT) in platelet poor plasma by coagulation lfhfi0328-23-08 21:25:00* Test Item Value Reference Range Interpretation Comments Activated Partial Thromboplast Time (test code = 62562-7) 35.4 23.8-35.5 [facility]2020-04-27 21:25:00* Test Item Value Reference Range Interpretation Comments Ammonia (test code = 57003-4) 117 31-123 [facility] Hospitalerum or plasma amylase measurement (enzymatic activity/volume)2019-09-20 21:25:00* Test Item Value Reference Range Interpretation Comments Amylase Level (test code = 1798-8) 33 25-125 [facility] HospitalBedside Kzgqeik0618-20-95 11:31:00* Test Item Value Reference Range Interpretation Comments Bedside Glucose (test code = 85327-1) 296 70-120 H Meter ID: [id number] General HospitalNeutrophils % (Manual)2019-07-21 10:20:00* Test Item Value Reference Range Interpretation Comments Neutrophils % (Manual) (test code = 59555-2) 67 40-74 [facility] HospitalLymphocytes % (Manual)2019-07-21 10:20:00 * Test Item Value Reference Range Interpretation Comments Lymphocytes % (Manual) (test code = 737-7) 20 19-48 [facility] HospitalMonocytes % (Manual)2019-07-21 10:20:00* Test Item Value Reference Range Interpretation Comments Monocytes % (Manual) (test code = 744-3) 10 3.4-9.0 H [facility] HospitalEosinophils % (Manual)2019-07-21 10:20:00 * Test Item Value Reference Range Interpretation Comments Eosinophils % (Manual) (test code = 714-6) 3 0-7 [facility] HospitalUS ABDOMEN MTZNSEA0593-69-10 09:10:00 [facility] [address] [place] [address] Patient Name: DEBORAH AGUERO MR #: [id number] : 1955 Age/Sex: 63/F Req #: [id number] Adm Physician: STORMY RYAN MD Ordered by: MARKO HOLLINS NP Report #: [id number] Location: [facility] Room/Bed: [facility] Procedure: [id number] US/U S ABDOMEN LIMITED Exam Date: 07/21/19 Exam Time: 082 8 REPORT STATUS: Signed EXAM: U S ABDOMEN LIMITED DATE: 07/21/2019 12:00 AM INDICATION: Ascites COMPARISON: CT abdomen/pelvis from 07/19/2019 FINDINGS: Limited sonograp hic images are obtained of the 4 quadrants for the assessment of ascites. Ther e is no ascites present. IMPRESSION: No ascites present. Amie d by: Dr. Oleksandr Xiong MD on 07/21/2019 9:10 AM Dictated By: OLEKSANDR XIONG MD 9 Transcribed By: LIV on 07/21/19909 COPY TO: MARKO HOLLINS DRAMATIC READER Differential Total Cells Bazkxls5165-68-62 09:00:00* Test Item Value Reference Range Interpretation Comments Differential Total Cells Counted (test code = Toribio nyl Total Cells Counted) 100 [facility] HospitalPlatelet Zabfmtzl5706-82-86 09:00:00* Test Item Value Reference Range Interpretation Comments Platelet Estimate (test code = 59731-4) SLIGHTLY DECREASED [facility] HospitalPlatelet Morphology Aeadyfj2201-62-60 09:00:00* Test Item Value Reference Range Interpretation Comments Platelet Morphology Comment (test code = 83425-3) NORMAL [facility] HospitalAnisocytosis2020-02-26 09:00:00* Test Item Value Reference Range Interpretation Comments Anisocytosis (test code = 702-1) SLIGHT [facility] HospitalMacrocytosis2020-02-26 09:00:00* Test Item Value Reference Range Interpretation Comments Macrocytosis (test code = 738-5) SLIGHT [facility] HospitalRed Cell Morphology Vttsajx1927-45-24 09:00:00* Test Item Value Reference Range Interpretation Comments Red Cell Morphology Comment (test code = 6742-1) NORMAL [facility] Hospitalodium Vqivw4940-94-18 06:52:00* Test Item Value Reference Range Interpretation Comments Sodium Level (test code = 2951-2) 138 136-145 [facility] HospitalPotassium Dccyr7895-00-77 06:52:00* Test Item Value Reference Range Interpretation Comments Potassium Level (test code = 2823-3) 3.6 3.5-5.1 [facility] HospitalChloride Xjpku8897-19-32 06:52:00* Test Item Value Reference Range Interpretation Comments Chloride Level (test code = 2075-0) 106 98-107 [facility] HospitalCarbon Dioxide Kgdfo5959-60-25 06:52:00* Test Item Value Reference Range Interpretation Comments Carbon Dioxide Level (test code = 2028-9) 27 22-29 [facility] HospitalAnion Zxf4530-52-08 06:52:00* Test Item Value Reference Range Interpretation Comments Anion Gap (test code = 30408-4) 8.6 8-16 [facility] HospitalBlood Urea Fxpiiswg9681-47-82 06:52:00* Test Item Value Reference Range Interpretation Comments Blood Urea Nitrogen (test code = 3094-0) 14 - [facility] HospitalCreatinine2020-02-26 06:52:00* Test Item Value Reference Range Interpretation Comments Creatinine (test code = 2160-0) 0.98 0.57-1.11 [facility] HospitalBUN/Creatinine Omihs7346-21-35 06:52:00* Test Item Value Reference Range Interpretation Comments BUN/Creatinine Ratio (test code = 3097-3) 14 11-17 [facility] HospitalEstimat Glomerular Filtration Rate 2019-07-21 06:52:00* Test Item Value Reference Range Interpretation Comments Estimat Glomerular Filtration Rate (test code = 409140451) 57 >60 L Ranges were taken from the National Kidney Disease Education Program and the [facility] Kidney Foundation literature.Reference ranges:60 or greater: Fnseiw98-99 ( for 3 consecutive months): Chronic kidney disease 15 or less: Kidney failureNocona General HospitalGlucose Pwzag1473-71-47 06:52:00* Test Item Value Reference Range Interpretation Comments Glucose Level (test code = KOC8013) 210 74-118 H [facility] HospitalCalcium Slizt0680-47-44 06:52:00* Test Item Value Reference Range Interpretation Comments Calcium Level (test code = 82530-4) 8.5 8.4-10.2 [facility] HospitalTotal Orqszafbt9852-97-32 06:52:00* Test Item Value Reference Range Interpretation Comments Total Bilirubin (test code = 1975-2) 3.4 0.2-1.2 H [facility] HospitalAspartate Amino Transf (AST/SGOT) 2019-07-21 06:52:00* Test Item Value Reference Range Interpretation Comments Aspartate Amino Transf (AST/SGOT) (test code = Aspartate Amino Transf (AST/SGOT)) 32 5-34 [facility] HospitalAlanine Aminotransferase (ALT/SGPT) 2019-07-21 06:52:00* Test Item Value Reference Range Interpretation Comments Alanine Aminotransferase (ALT/SGPT) (test code = 1742-6) 35 0-55 [facility] HospitalTotal Bzodaad7841-35-46 06:52:00* Test Item Value Reference Range Interpretation Comments Total Protein (test code = 2885-2) 5.5 6.5-8.1 L [facility] HospitalAlbumin2020-02-26 06:52:00* Test Item Value Reference Range Interpretation Comments Albumin (test code = 1751-7) 2.1 3.5-5.0 L [facility] HospitalGlobulin2020-02-26 06:52:00* Test Item Value Reference Range Interpretation Comments Globulin (test code = 95018-4) 3.4 2.3-3.5 [facility] HospitalAlbumin/Globulin Puhjx9094-10-40 06:52:00 * Test Item Value Reference Range Interpretation Comments Albumin/Globulin Ratio (test code = 1759-0) 0.6 0.8-2.0 L [facility] HospitalAlkaline Thzwpiapiaj2247-00-24 06:52:00* Test Item Value Reference Range Interpretation Comments Alkaline Phosphatase (test code = 6768-6) 330 40-150 H [facility] HospitalWhite Blood Zphzv7491-55-62 06:23:00* Test Item Value Reference Range Interpretation Comments White Blood Count (test code = 6690-2) 10.25 4.8-10.8 [facility] HospitalRed Blood Ecgra5428-01-66 06:23:00* Test Item Value Reference Range Interpretation Comments Red Blood Count (test code = 789-8) 3.97 3.6-5.1 [facility] HospitalHemoglobin2020-02-26 06:23:00* Test Item Value Reference Range Interpretation Comments Hemoglobin (test code = 89059-5) 13.4 12.0-16.0 [facility] HospitalHematocrit2020-02-26 06:23:00* Test Item Value Reference Range Interpretation Comments Hematocrit (test code = 4544-3) 40.0 34.2-44.1 [facility] HospitalMean Corpuscular Hrknfw9137-42-98 06:23:00* Test Item Value Reference Range Interpretation Comments Mean Corpuscular Volume (test code = 787-2) 100.8 81-99 H [facility] HospitalMean Corpuscular Sutwtinzmb1551-40-17 06:23:00* Test Item Value Reference Range Interpretation Comments Mean Corpuscular Hemoglobin (test code = 785-6) 33.8 28-32 H [facility] HospitalMean Corpuscular Hemoglobin Concent 2019-07-21 06:23:00* Test Item Value Reference Range Interpretation Comments Mean Corpuscular Hemoglobin Concent (test code = 786-4) 33.5 31-35 [facility] HospitalRed Cell Distribution Gsnlc6105-48-59 06:23:00* Test Item Value Reference Range Interpretation Comments Red Cell Distribution Width (test code = 53154-4) 15.8 11.7 -14.4 H [facility] HospitalPlatelet Nvsnh8051-83-20 06:23:00* Test Item Value Reference Range Interpretation Comments Platelet Count (test code = 777-3) 74 140-360 L [facility] HospitalNeutrophils (%) (Auto)2019-07-21 06:23:00 * Test Item Value Reference Range Interpretation Comments Neutrophils (%) (Auto) (test code = 88276-8) 61.5 38.7-80.0 [facility] HospitalLymphocytes (%) (Auto)2019-07-21 06:23:00 * Test Item Value Reference Range Interpretation Comments Lymphocytes (%) (Auto) (test code = 736-9) 20.4 18.0-39.1 [facility] HospitalMonocytes (%) (Auto)2019-07-21 06:23:00* Test Item Value Reference Range Interpretation Comments Monocytes (%) (Auto) (test code = 5905-5) 10.1 4.4-11.3 [facility] HospitalEosinophils (%) (Auto)2019-07-21 06:23:00 * Test Item Value Reference Range Interpretation Comments Eosinophils (%) (Auto) (test code = 713-8) 4.4 0.0-6.0 [facility] HospitalBasophils (%) (Auto)2019-07-21 06:23:00* Test Item Value Reference Range Interpretation Comments Basophils (%) (Auto) (test code = 706-2) 0.6 0.0-1.0 [facility] HospitalIM GRANULOCYTES %2019-07-21 06:23:00* Test Item Value Reference Range Interpretation Comments IM GRANULOCYTES % (test code = IM GRANULOCYTES %) 3.0 0.0- 1.0 H [facility] HospitalNeutrophils # (Auto)2019-07-21 06:23:00* Test Item Value Reference Range Interpretation Comments Neutrophils # (Auto) (test code = 751-8) 6.3 2.1-6.9 [facility] HospitalLymphocytes # (Auto)2019-07-21 06:23:00* Test Item Value Reference Range Interpretation Comments Lymphocytes # (Auto) (test code = 91916-9) 2.1 1.0-3.2 [facility] HospitalMonocytes # (Auto)2019-07-21 06:23:00* Test Item Value Reference Range Interpretation Comments Monocytes # (Auto) (test code = 742-7) 1.0 0.2-0.8 H [facility] HospitalEosinophils # (Auto)2019-07-21 06:23:00* Test Item Value Reference Range Interpretation Comments Eosinophils # (Auto) (test code = 711-2) 0.5 0.0-0.4 H [facility] HospitalBasophils # (Auto)2019-07-21 06:23:00* Test Item Value Reference Range Interpretation Comments Basophils # (Auto) (test code = 704-7) 0.1 0.0-0.1 [facility] HospitalAbsolute Immature Granulocyte (auto 2019-07-21 06:23:00* Test Item Value Reference Range Interpretation Comments Absolute Immature Granulocyte (auto ([place] t code = Absolute Immature Granulocyte (auto) 0.31 0-0.1 H [facility] HospitalFluoroscopic procedure less than one hour vcaakokz9764-12-56 04:40:00* Test Item Value Reference Range Interpretation Comments Differential Total Cells Counted (test code = Toribio tial Total Cells Counted) 100 [facility]100 leukocytes 2019-07-21 04:40:00* Test Item Value Reference Range Interpretation Comments Neutrophils % (Manual) (test code = 00329-3) 67 40-74 [facility] blood lymphocytes/100 leukocytes 2019-07-21 04:40:00* Test Item Value Reference Range Interpretation Comments Lymphocytes % (Manual) (test code = 737-7) 20 19-48 [facility] blood monocytes/100 leukocytes 2019-07-21 04:40:00* Test Item Value Reference Range Interpretation Comments Monocytes % (Manual) (test code = 744-3) 10 3.4-9.0 [facility] blood eosinophil count as percentage of total osvrgfearv0556-00-36 04:40:00* Test Item Value Reference Range Interpretation Comments Eosinophils % (Manual) (test code = 714-6) 3 0-7 [facility] HospitalBlood platelets count by estimate (number/volume)2019-07-21 04:40:00* Test Item Value Reference Range Interpretation Comments Platelet Estimate (test code = 53441-4) SLIGHTLY DECREASED [facility] HospitalPlatelet pimvxrqdcd7613-33-77 04:40:00* Test Item Value Reference Range Interpretation Comments Platelet Morphology Comment (test code = 88913-3) NORMAL [facility] anisocytosis detection by light ydbxmpubxo1161-67-06 04:40:00* Test Item Value Reference Range Interpretation Comments Anisocytosis (test code = 702-1) SLIGHT [facility] macrocytes detection by light jtjyqeebzf5025-97-76 04:40:00* Test Item Value Reference Range Interpretation Comments Macrocytosis (test code = 738-5) SLIGHT [facility] HospitalRBC wzmmlrzhkb5873-13-14 04:40:00* Test Item Value Reference Range Interpretation Comments Red Cell Morphology Comment (test code = 6742-1) NORMAL [facility] HospitalFluoroscopic procedure less than one hour emrjvqme0413-32-64 04:40:00* Test Item Value Reference Range Interpretation Comments Differential Total Cells Counted (test code = Toribio tial Total Cells Counted) 100 [facility]ual blood neutrophils/100 leukocytes 2019-07-21 04:40:00* Test Item Value Reference Range Interpretation Comments Neutrophils % (Manual) (test code = 15512-8) 67 40-74 [facility]ual blood lymphocytes/100 leukocytes 2019-07-21 04:40:00* Test Item Value Reference Range Interpretation Comments Lymphocytes % (Manual) (test code = 737-7) 20 19-48 [facility] blood monocytes/100 leukocytes 2019-07-21 04:40:00* Test Item Value Reference Range Interpretation Comments Monocytes % (Manual) (test code = 744-3) 10 3.4-9.0 [facility] blood eosinophil count as percentage of total jgtvkexond5727-54-81 04:40:00* Test Item Value Reference Range Interpretation Comments Eosinophils % (Manual) (test code = 714-6) 3 0-7 [facility] HospitalBlood platelets count by estimate (number/volume)2019-07-21 04:40:00* Test Item Value Reference Range Interpretation Comments Platelet Estimate (test code = 66621-1) SLIGHTLY DECREASED [facility] HospitalPlatelet zwoaeqawpe7874-83-20 04:40:00* Test Item Value Reference Range Interpretation Comments Platelet Morphology Comment (test code = 06845-7) NORMAL [facility] anisocytosis detection by light fnlzwvukzh9307-16-38 04:40:00* Test Item Value Reference Range Interpretation Comments Anisocytosis (test code = 702-1) SLIGHT [facility] macrocytes detection by light lzqpduikdh3870-64-48 04:40:00* Test Item Value Reference Range Interpretation Comments Macrocytosis (test code = 738-5) SLIGHT [facility] HospitalRBC ffzfhvfvql4893-19-48 04:40:00* Test Item Value Reference Range Interpretation Comments Red Cell Morphology Comment (test code = 6742-1) NORMAL [facility] HospitalFluoroscopic procedure less than one hour kkbhcbkf0147-00-90 04:40:00* Test Item Value Reference Range Interpretation Comments Differential Total Cells Counted (test code = Toribio hart Total Cells Counted) 100 [facility] blood neutrophils/100 leukocytes 2019-07-21 04:40:00* Test Item Value Reference Range Interpretation Comments Neutrophils % (Manual) (test code = 91921-9) 67 40-74 [facility]ual blood lymphocytes/100 leukocytes 2019-07-21 04:40:00* Test Item Value Reference Range Interpretation Comments Lymphocytes % (Manual) (test code = 737-7) 20 19-48 [facility] blood monocytes/100 leukocytes 2019-07-21 04:40:00* Test Item Value Reference Range Interpretation Comments Monocytes % (Manual) (test code = 744-3) 10 3.4-9.0 [facility] blood eosinophil count as percentage of total ylbvljwscm9150-90-81 04:40:00* Test Item Value Reference Range Interpretation Comments Eosinophils % (Manual) (test code = 714-6) 3 0-7 [facility] HospitalBlood platelets count by estimate (number/volume)2019-07-21 04:40:00* Test Item Value Reference Range Interpretation Comments Platelet Estimate (test code = 80240-9) SLIGHTLY DECREASED [facility] HospitalPlatelet yuxfiomrmn4612-61-88 04:40:00* Test Item Value Reference Range Interpretation Comments Platelet Morphology Comment (test code = 36389-8) NORMAL [facility] anisocytosis detection by light hbkabhembb5533-42-38 04:40:00* Test Item Value Reference Range Interpretation Comments Anisocytosis (test code = 702-1) SLIGHT [facility] macrocytes detection by light uwrhoexspl5554-24-75 04:40:00* Test Item Value Reference Range Interpretation Comments Macrocytosis (test code = 738-5) SLIGHT [facility] HospitalRBC cvojbbnrit0177-30-52 04:40:00* Test Item Value Reference Range Interpretation Comments Red Cell Morphology Comment (test code = 6742-1) NORMAL [facility] HospitalAmmonia2020-02-25 17:29:00* Test Item Value Reference Range Interpretation Comments Ammonia (test code = 29940-3) 159 31-123 H [facility] HospitalCreatine Kinase HG4703-79-73 07:23:00* Test Item Value Reference Range Interpretation Comments Creatine Kinase MB (test code = 21982-1) 2.00 0-5.0 [facility] HospitalTroponin L2613-16-40 07:23:00* Test Item Value Reference Range Interpretation Comments Troponin I (test code = CHB1036) 0.010 0-0.300 [facility] HospitalCreatine Qbcpqv5313-28-16 07:01:00* Test Item Value Reference Range Interpretation Comments Creatine Kinase (test code = 2157-6) 81 29-168 [facility] HospitalPhosphorus Txopp7386-28-11 06:44:00* Test Item Value Reference Range Interpretation Comments Phosphorus Level (test code = MCJ3578) 2.3 2.3-4.7 [facility] HospitalMagnesium Toizp7335-39-90 06:44:00* Test Item Value Reference Range Interpretation Comments Magnesium Level (test code = 78353-8) 1.8 1.3-2.1 [facility] HospitalCHEST SINGLE (PORTABLE)2019-07-20 05:37:00 [facility] [address] [place] [address] Patient Name: DEBORAH AGUERO MR #: [id number] : 1955 Age/Sex: 63/F Req #: [id number] Adm Physician: STORMY RYAN MD Ordered by: ANSON TELLES DRAMATIC READER Report #: [id number] Location: MED/SURG3 Room/Bed: 293 Procedure: [id number] DX/ CHEST SINGLE (PORTABLE) Exam Date: Exam Time: REPORT STATUS: Signed Examination: S braxton AP view of the chest. COMPARISON: 07/19/2019, CT abdomen and pelvis INDICATION: Abdominal pain DISCUSSION: The lungs ar e well-inflated. Small bilateral pleural effusions with lower lobe airspace di sease, likely atelectasis. No new consolidations. Cardiomediastinal contou r and pulmonary vasculature are within normal limits when accounting for AP te chnique. No acute osseous abnormalities. IMPRESSION: Small bila teral pleural effusions and bibasilar subsegmental atelectasis better characte rized on CT abdomen and pelvis 07/19/2019. Signed by: Elicia Joyner on 07/20/2019 5:38 AM Dictated By: HARINDER YAÑEZ MD Electronically Sign ed By: HARINDER YAÑEZ MD on 07/20/19537 Transcribed By: LIV on 07/20/19 COPY TO: ANSON TELLES DRAMATIC READER Phosphorus mezhtjxycgn1290-49-12 04:40:00* Test Item Value Reference Range Interpretation Comments Phosphorus Level (test code = MEF0616) 2.3 2.3-4.7 [facility] HospitalPhosphorus gleceopevfi8787-02-21 04:40:00 * Test Item Value Reference Range Interpretation Comments Phosphorus Level (test code = KUN9505) 2.3 2.3-4.7 [facility] HospitalPhosphorus duymbomkuuf6110-82-61 04:40:00 * Test Item Value Reference Range Interpretation Comments Phosphorus Level (test code = RXA2269) 2.3 2.3-4.7 [facility] HospitalCT ABDOMEN/PELVIS R9605-24-95 20:03:00 [facility] [address] [place] [address] Patient Name: DEBORAH AGUERO MR #: [id number] : 1955 Age/Sex: 63/F Req #: [id number] Adm Physician: STORMY RYAN MD Ordered by: ANSON TELLES NP Report #: [id number] Location: [facility] Room/Bed: [place] [address] Procedure: [id number] CT/ CT ABDOMEN/PELVIS W Exam Date: 07/19/19 Exam Time: 1 824 REPORT STATUS: Signed EXAMIN ATION: CT of the abdomen and pelvis with contrast. TECHNIQUE: Spiral CT images of the abdomen and pelvis were performed from the lung bases to the les ser trochanters after the intravenous administration of 100 cc of Isovue 370 a nd the oral administration of water. Coronal and sagittal reformatted images were obtained. COMPARISON: Abdominal ultrasound 07/13/2019 CLINICAL HIS TORY:Abdominal distention DISCUSSION: ABDOMEN/PELVIS: LOWER THORAX:Small bilateral pleural effusions and associated atelectasis of the low er lobes. Calcification of the mitral annulus. Mild atherosclerotic calcificat ion of the aortic valves. HEPATOBILIARY: Shrunken nodular liver consistent with cirrhosis. No focal lesions. No intra or extrahepatic biliary ductal dil ation. GALLBLADDER: Cholecystectomy clips. SPLEEN: No splenomegal y. PANCREAS: No focal masses or ductal dilatation. ADRENALS: No adren al nodules. KIDNEYS/URETERS: No hydronephrosis, stones, or solid mass lesio ns. PELVIC ORGANS/BLADDER: Bladder is unremarkable. Uterus is unremarkable. No adnexal masses. PERITONEUM/RETROPERITONEUM: Small amount of perihepat ic and pelvic ascites. LYMPH NODES: No intra-abdominal, retroperitoneal, pe lvic or inguinal lymphadenopathy. VESSELS: The celiac trunk,superior and inferior mesenteric and bilateral renal arteries are patent The portal, supe rior mesenteric and splenic veins are patent. Collateral circulation in the fo rm of a recanalized umbilical vein as well as a splenorenal shunt. GI TRA CT: No bowel dilation or evidence of obstruction. No pericolonic inflammatory changes. BONES AND SOFT TISSUE: No aggressive lytic lesions. Generalized s oft tissue edema. IMPRESSION: 1. No bowel dilation or evidence of o bstruction. 2. Cirrhotic liver with evidence of portal hypertension manifes mal by collateral circulation and perihepatic and pelvic ascites. Generalized soft tissue edema. No focal hepatic lesions. 3. Small bilateral pleural e ffusions and associated bilateral lower lobe atelectasis. Signed by: Dr. Mike Lozano M.D. on 07/19/2019 8:09 PM Dictated By: MIKE LOZANO MD 08 Transcribed By : LIV on 07/19/192008 COPY TO: ANSON TELLES NP B-Type Natriuretic Zbmpocs3033-06-52 17:45:00* Test Item Value Reference Range Interpretation Comments B-Type Natriuretic Peptide (test code = 82095-6) 228.0 0-100 H [facility] SINGLE (PORTABLE)2019-07-19 17:19:00 [place] [address] Patient Name: DEBORAH AGUERO MR #: [id number] : 1955 Age/Sex: 63/F Req #: [id number] Adm Physician: Ordered by: ANSON TELLES NP Report #: [id number] Location: ER Room/Bed: Procedure: [id number] DX/C HEST SINGLE (PORTABLE) Exam Date: 07/19/19 Exam Time : 1605 REPORT STATUS: Signed EXA MINATION: CHEST SINGLE (PORTABLE) INDICATION: Cirrhosis, abdominal earnest n COMPARISON: Chest radiograph 07/13/2019 FINDINGS: LINES/TUB ES:None LUNGS:The lungs are well-inflated. No focal consolidation or pulmon marilyn edema. PLEURA:No pleural effusion or pneumothorax. MEDIASTINUM:The cardiomediastinal silhouette appears normal in size and shape. BONES/SOFT TISSUES:No acute osseous injury. ABDOMEN:No free air under the diaphragm. IMPRESSION: No focal pneumonia or pulmonary edema. Signed by: Duc Ramirez MD on 07/19/2019 5:20 PM Dictated By: JESSICA RAMIREZ MD Electronical ly Signed By: JESSICA RAMIREZ MD on 07/19/191719 Transcribed By: LIV on 0 1720 COPY TO: ANSON TELLES NP Prothrombin Xjyc8024-18-42 17:02:00* Test Item Value Reference Range Interpretation Comments Prothrombin Time (test code = 5902-2) 21.1 11.9-14.5 H [facility] HospitalProthromb Time International Ratio 2019-07-19 17:02:00* Test Item Value Reference Range Interpretation Comments Prothromb Time International Ratio (test code = 6301-6) 1.69 Oral Anticoagulant Therapy INR Values:1. Low Intensity Therapy 1.5 - 2.02 . Moderate Intensity Therapy 2.0 - 3.03. High Intensity Therapy(1) 2.5 - 3. 54. High Intensity Therapy(2) 3.0 - 4.05. Panic Value INR > 5.0 [facility] HospitalActivated Partial Thromboplast Time 2019-07-19 17:02:00* Test Item Value Reference Range Interpretation Comments Activated Partial Thromboplast Time (test code = 69616-6) 30.0 23.8-35.5 [facility] HospitalUrine ONV6125-15-39 16:46:00* Test Item Value Reference Range Interpretation Comments Urine WBC (test code = 5821-4) 0-5 0-5 [facility] HospitalU[facility] WXF1781-89-18 16:46:00* Test Item Value Reference Range Interpretation Comments Urine RBC (test code = 58722-5) 0-5 0-5 [facility] HospitalUrine Mtlavygd1565-88-49 16:46:00* Test Item Value Reference Range Interpretation Comments Urine Bacteria (test code = 65203-8) NONE NONE [facility] HospitalUrine Epithelial Lqyru2801-94-35 16:46:00 * Test Item Value Reference Range Interpretation Comments Urine Epithelial Cells (test code = 44752-9) FEW NONE [facility] HospitalUrine Transitional Epithelial Cells 2019-07-19 16:46:00* Test Item Value Reference Range Interpretation Comments Urine Transitional Epithelial Cells (test code = 8249-5) RARE NONE H [facility] HospitalUrine Rhivz0119-63-89 16:35:00* Test Item Value Reference Range Interpretation Comments Urine Color (test code = 5778-6) YELLOW YELLOW [facility] HospitalUrine Yyyxsep9927-22-41 16:35:00* Test Item Value Reference Range Interpretation Comments Urine Clarity (test code = 80498-7) SL CLOUDY CLEAR [facility] HospitalUrine Specific Cwiztxn4408-63-43 16:35:00 * Test Item Value Reference Range Interpretation Comments Urine Specific [place] (test code = 5811-5) 1.020 1.010-1.02 5 [facility] HospitalUrine qQ1229-32-58 16:35:00* Test Item Value Reference Range Interpretation Comments Urine pH (test code = 10550-5) 7 5-7 [facility] Hospital[facility] Leukocyte Lvvuerdv6234-71-97 16:35:00* Test Item Value Reference Range Interpretation Comments Urine Leukocyte Esterase (test code = 5799-2) NEGATIVE NEGATIVE [facility] HospitalU[facility] Ttgxpdb1416-80-45 16:35:00* Test Item Value Reference Range Interpretation Comments Urine Nitrite (test code = 00393-7) NEGATIVE NEGATIVE [facility] HospitalU[facility] Hmcalzn7865-52-15 16:35:00* Test Item Value Reference Range Interpretation Comments Urine Protein (test code = 5804-0) NEGATIVE NEGATIVE [facility] HospitalUrine Glucose (UA)2019-07-19 16:35:00* Test Item Value Reference Range Interpretation Comments Urine Glucose (UA) (test code = 2349-9) 3+ NEGATIVE H [facility] HospitalUrine Fumxqyt1501-29-21 16:35:00* Test Item Value Reference Range Interpretation Comments Urine Ketones (test code = 68869-1) NEGATIVE NEGATIVE [facility] HospitalU[facility] Becjxqzyhdng8525-37-41 16:35:00* Test Item Value Reference Range Interpretation Comments Urine Urobilinogen (test code = 73076-6) 1 0.2-1 [facility] HospitalU[facility] Mijdnogkn4574-86-49 16:35:00* Test Item Value Reference Range Interpretation Comments Urine Bilirubin (test code = 1978-6) NEGATIVE NEGATIVE [facility] HospitalUrine Janji5210-60-99 16:35:00* Test Item Value Reference Range Interpretation Comments Urine Blood (test code = 39830-9) TRACE NEGATIVE H [facility] HospitalTransitional cells detection in urine sediment by light ffmhmsztln8997-05-60 14:13:00* Test Item Value Reference Range Interpretation Comments Urine Transitional Epithelial Cells (test code = 8249-5) RARE NONE [facility] HospitalTransitional cells detection in urine sediment by light jigegikxib7386-16-65 14:13:00* Test Item Value Reference Range Interpretation Comments Urine Transitional Epithelial Cells (test code = 8249-5) RARE NONE [facility] HospitalTransitional cells detection in urine sediment by light kpgubisqjb8177-27-42 14:13:00* Test Item Value Reference Range Interpretation Comments Urine Transitional Epithelial Cells (test code = 8249-5) RARE NONE [facility] HospitalBlood Flexcuv5014-20-77 12:42:00* Test Item Value Reference Range Interpretation Comments Blood Culture (test code = 55983737) NO GROWTH AFTER 5 DAYS, FINAL REPORT [facility] HospitalBlood Gxsyqtj4682-10-00 12:42:00* Test Item Value Reference Range Interpretation Comments Blood Culture (test code = 47955643) NO GROWTH AFTER 24 HOURS [facility] HospitalPlatelet Epzarvsf9097-07-99 07:23:00* Test Item Value Reference Range Interpretation Comments Platelet Estimate (test code = 51618-8) MARKEDLY DECREASED [facility] HospitalPlatelet Morphology Bigzbmg5374-39-96 07:23:00* Test Item Value Reference Range Interpretation Comments Platelet Morphology Comment (test code = 11832-9) FEW LARGE NO EDTA PLT CLUMPS [facility]2019-[facility]-14 07:06:00 [facility] [address] [place] [address] Patient Name: DEBORAH AGUERO MR #: [id number] : 1955 Age/Sex: 63/F Req #: [id number] Adm Physician: STORMY RYAN MD Ordered by: ANSON TELLES DRAMATIC READER Report #: [id number] Location: [facility] Room/Bed: [place] [address] Procedure: [id number] DX/ CHEST SINGLE (PORTABLE) Exam Date: 07/14/19 Exam Cornell e: 06 REPORT STATUS: Signed EX AMINATION: CHEST SINGLE (PORTABLE) COMPARISON: CT chest 07/13/2019 INDICATION: SOB [id number] DISCUSSION: Frontal view of t he chest obtained at 0625 hours. HEART AND MEDIASTINUM: The heart is top n ormal in size to mildly enlarged. LINES: None. LUNGS/PLEURA: Bibas ilar atelectasis and small pleural effusions. Central pulmonary veins are prom inent and stable. No pneumothorax. BONES AND SOFT TISSUES: No focal osseou s lesion. The soft tissues are normal. IMPRESSION: Bilateral pleural effusions and bibasilar atelectasis. Stable prominence of the pulmonary veins. Signed by: Dr. Agnieszka Sheth MD on 07/14/2019 7:07 AM Dictated By: AGNIESZKA SHETH MD 6 COPY TO: MYRIAM TELLES NP Sodium Bcxcw8271-35-23 06:41:00* Test Item Value Reference Range Interpretation Comments Sodium Level (test code = 2951-2) 139 136-145 [facility] HospitalPotassium Evaqq8985-65-18 06:41:00* Test Item Value Reference Range Interpretation Comments Potassium Level (test code = 2823-3) 4.1 3.5-5.1 [facility] HospitalChloride Qqtsx2372-16-48 06:41:00* Test Item Value Reference Range Interpretation Comments Chloride Level (test code = 2075-0) 107 98-107 [facility] HospitalCarbon Dioxide Chdww2472-16-08 06:41:00* Test Item Value Reference Range Interpretation Comments Carbon Dioxide Level (test code = 2028-9) 26 22-29 [facility] HospitalAnion Dlx3228-94-53 06:41:00* Test Item Value Reference Range Interpretation Comments Anion Gap (test code = 70549-6) 10.1 8-16 [facility] HospitalBlood Urea Srfqchoe6738-82-10 06:41:00* Test Item Value Reference Range Interpretation Comments Blood Urea Nitrogen (test code = 3094-0) 15 7-26 [facility] HospitalCreatinine2020-02-19 06:41:00* Test Item Value Reference Range Interpretation Comments Creatinine (test code = 2160-0) 1.07 0.57-1.11 [facility] HospitalBUN/Creatinine Kannf1638-76-24 06:41:00* Test Item Value Reference Range Interpretation Comments BUN/Creatinine Ratio (test code = 3097-3) 14 6-25 [facility] HospitalEstimat Glomerular Filtration Rate 2019-07-14 06:41:00* Test Item Value Reference Range Interpretation Comments Estimat Glomerular Filtration Rate (test code = 827481389) 51 >60 L Ranges were taken from the National Kidney Disease Education Program and the [facility] literature.Reference ranges:60 or greater: Jfyhey21-44 ( for 3 consecutive months): Chronic kidney disease 15 or less: Kidney failureNocona General HospitalGlucose Ydybb2537-74-51 06:41:00* Test Item Value Reference Range Interpretation Comments Glucose Level (test code = RDY5531) 213 74-118 H [facility] HospitalCalcium Putgs6688-99-15 06:41:00* Test Item Value Reference Range Interpretation Comments Calcium Level (test code = 28707-3) 8.8 8.4-10.2 [facility] HospitalCreatine Tpqeya7604-35-18 06:21:00* Test Item Value Reference Range Interpretation Comments Creatine Kinase (test code = 2157-6) 170 29-168 H [facility] HospitalCreatine Kinase YD3148-66-34 06:21:00* Test Item Value Reference Range Interpretation Comments Creatine Kinase MB (test code = 07598-5) 2.00 0-5.0 [facility] HospitalTroponin Z0108-82-02 06:21:00* Test Item Value Reference Range Interpretation Comments Troponin I (test code = EPX1785) < 0.001 0-0.300 [facility] HospitalWhite Blood Tgykc2397-93-04 05:35:00* Test Item Value Reference Range Interpretation Comments White Blood Count (test code = 6690-2) 5.62 4.8-10.8 [facility] HospitalRed Blood Hhegl6645-89-66 05:35:00* Test Item Value Reference Range Interpretation Comments Red Blood Count (test code = 789-8) 3.99 3.6-5.1 [facility] HospitalHemoglobin2020-02-19 05:35:00* Test Item Value Reference Range Interpretation Comments Hemoglobin (test code = 56825-1) 13.3 12.0-16.0 [facility] HospitalHematocrit2020-02-19 05:35:00* Test Item Value Reference Range Interpretation Comments Hematocrit (test code = 4544-3) 39.6 34.2-44.1 [facility] HospitalMean Corpuscular Lgwmqy6315-90-69 05:35:00* Test Item Value Reference Range Interpretation Comments Mean Corpuscular Volume (test code = 787-2) 99.2 81-99 H [facility] HospitalMean Corpuscular Snohfuzkcd2453-70-72 05:35:00* Test Item Value Reference Range Interpretation Comments Mean Corpuscular Hemoglobin (test code = 785-6) 33.3 28-32 H [facility] HospitalMean Corpuscular Hemoglobin Concent 2019-07-14 05:35:00* Test Item Value Reference Range Interpretation Comments Mean Corpuscular Hemoglobin Concent (test code = 786-4) 33.6 31-35 [facility] HospitalRed Cell Distribution Stpcl8802-02-98 05:35:00* Test Item Value Reference Range Interpretation Comments Red Cell Distribution Width (test code = 56747-3) 15.2 11.7 -14.4 H [facility] HospitalPlatelet Jwpea8699-27-81 05:35:00* Test Item Value Reference Range Interpretation Comments Platelet Count (test code = 777-3) 69 140-360 L [facility] HospitalNeutrophils (%) (Auto)2019-07-14 05:35:00 * Test Item Value Reference Range Interpretation Comments Neutrophils (%) (Auto) (test code = 55831-0) 47.1 38.7-80.0 [facility] HospitalLymphocytes (%) (Auto)2019-07-14 05:35:00 * Test Item Value Reference Range Interpretation Comments Lymphocytes (%) (Auto) (test code = 736-9) 29.0 18.0-39.1 [facility] HospitalMonocytes (%) (Auto)2019-07-14 05:35:00* Test Item Value Reference Range Interpretation Comments Monocytes (%) (Auto) (test code = 5905-5) 15.1 4.4-11.3 [facility] HospitalEosinophils (%) (Auto)2019-07-14 05:35:00 * Test Item Value Reference Range Interpretation Comments Eosinophils (%) (Auto) (test code = 713-8) 7.8 0.0-6.0 H [facility] HospitalBasophils (%) (Auto)2019-07-14 05:35:00* Test Item Value Reference Range Interpretation Comments Basophils (%) (Auto) (test code = 706-2) 0.5 0.0-1.0 [facility] HospitalIM GRANULOCYTES %2019-07-14 05:35:00* Test Item Value Reference Range Interpretation Comments IM GRANULOCYTES % (test code = IM GRANULOCYTES %) 0.5 0.0- 1.0 [facility] HospitalNeutrophils # (Auto)2019-07-14 05:35:00* Test Item Value Reference Range Interpretation Comments Neutrophils # (Auto) (test code = 751-8) 2.6 2.1-6.9 [facility] HospitalLymphocytes # (Auto)2019-07-14 05:35:00* Test Item Value Reference Range Interpretation Comments Lymphocytes # (Auto) (test code = 50706-4) 1.6 1.0-3.2 [facility] HospitalMonocytes # (Auto)2019-07-14 05:35:00* Test Item Value Reference Range Interpretation Comments Monocytes # (Auto) (test code = 742-7) 0.9 0.2-0.8 H [facility] HospitalEosinophils # (Auto)2019-07-14 05:35:00* Test Item Value Reference Range Interpretation Comments Eosinophils # (Auto) (test code = 711-2) 0.4 0.0-0.4 [facility] HospitalBasophils # (Auto)2019-07-14 05:35:00* Test Item Value Reference Range Interpretation Comments Basophils # (Auto) (test code = 704-7) 0.0 0.0-0.1 [facility] HospitalAbsolute Immature Granulocyte (auto 2019-07-14 05:35:00* Test Item Value Reference Range Interpretation Comments Absolute Immature Granulocyte (auto ([place] t code = Absolute Immature Granulocyte (auto) 0.03 0-0.1 [facility] HospitalBedside Lkttsul9969-82-45 22:30:00* Test Item Value Reference Range Interpretation Comments Bedside Glucose (test code = 42446-5) 326 70-120 H Meter ID: [id number] General HospitalUS ABDOMEN COMPLETE 2019-07-13 19:35:00 [place] [id number] Patient Name: DEBORAH AGUERO MR #: [id number] : 1955 Age/Sex: 63/F Req #: [id number] [facility] Physician: STORMY RYAN MD Ordered by: MARKO HOLLINS NP Report #: [id number] Location: [facility] Room/Bed: [place] [address] Procedure: [id number] US/U S ABDOMEN COMPLETE Exam Date: 07/13/19 Exam Time: REPORT STATUS: Signed ADDENDUM #1 Addendum: Vessels: The aorta and IVC are lar shrieen obscured by overlying bowel. Visualized portions unremarkable. Amie d by: Dr. Jaiden Grider M.D. on 07/22/2019 11:22 AM ORIGINAL REPORT * EXAM: US ABDOMEN COMPLETE DATE: 07/13/2019 12:00 AM IND ICATION: ascites [id number] COMPARISON: Chest CT, 07/13 FINDINGS: Grayscale and color flow Doppler ultrasound of the abd omen was performed. Liver: 10.7 cm span. Coarse hepatic parenchyma with mil d lobulation of the surface, findings which may be seen with cirrhosis. No int rahepatic mass or bile duct dilatation. Main portal vein 0.9 cm, nondilated, n ormal hepatopetal flow. Spleen: 11.6 cm length, no splenomegaly. Antoine creas: Obscured. Biliary: Surgical absence of the gallbladder. Common bile duct 0.3 cm, normal. Right kidney: 10.6 x 5.6 x 5.2 cm Left kidney: 9.0 x 4.3 x 5.3 cm Cortical echogenicity and thickness normal. No hydronephrosis or contour deforming mass. Echogenic focus is seen in the midportion of the right kidney measuring 5 mm, possible nonobstructing intrarenal calculus. Asc ites: None. Small pleural effusions are seen. IMPRESSION: 1. Coarse he patic parenchyma and nodular liver surface which may be seen with cirrhosis. N o dilatation of the main portal vein. No splenomegaly. 2. No dilatation of the biliary tree. 3. No ascites. Small bilateral pleural effusions. 4. Questionable small nonobstructing intrarenal calculus on the right. Signed by: Dr. Jaiden Grider M.D. on 07/13/2019 7:40 PM Dictated By: JAIDEN COLON MD 112 Transcribed By: LIV on 07/13/191939 COPY TO: MARKO HOLLINS NP CT CHEST [id number] 15:43:00 [place] [address] Patient Name: DEBORAH AGUERO MR #: [id number] : 1955 Age/Sex: 63/F Req #: [id number] Adm Physician: STORMY RYAN MD Ordered by: NIKOS KEYS DO Report #: [id number] Location: [facility] Room/Bed: [place] [address] Procedure: [id number] CT/CT CHEST W Exam Date: 07/13/19 Exam Time: 1430 REPORT STATUS: Signed EXAM: CT Chest WITH intravenous contrast 07/13/2019 1:53 PM INDICATION: Pneumonia, shortness of breath COMPARISON: Chest radiograph of the same day TECHNIQUE: Chest was s canned utilizing a multidetector helical scanner from the lung apex through th e level of the adrenal glands after administration of IV contrast. Coronal and sagittal reformations were obtained. Routine protocol was performed. IV CONTRAST: 100mL Isovue 370 RADIATION DOSE: Total DLP: 571.6 mGy*cm. Dose modul ation, iterative reconstruction, and/or weight based adjustment of the mA/kV w as utilized to reduce the radiation dose to as low as reasonably achievable. COMPLICATIONS: None FINDINGS: LINES/ TUBES: None. LUNGS AND AIR WAYS: The central airways are patent. No focal consolidation or pulmonary jairo ma. Bibasilar dependent subsegmental atelectasis. No suspicious pulmonary nod ules. PLEURA: Small bilateral pleural effusions. No pneumothorax. HEAR T AND MEDIASTINUM: The thyroid gland is normal. No supraclavicular, axillary, mediastinal, or hilar lymphadenopathy. The heart is normal in size.. There is no pericardial effusion. Scattered atherosclerotic calcifications of the ao rta, coronary arteries, and proximal great vessels. UPPER ABDOMEN: Status p ost cholecystectomy. Mildly nodular liver surface contour suggestive of hepati c cirrhosis. No other acute findings. BONES: The visualized bony thorax is within normal limits. SOFT TISSUES: Apparent left greater than right breast skin thickening. IMPRESSION: No focal pneumonia or airspace pulmonary edema. Small bilateral pleural effusions. Associated bibasilar dependent singh bsegmental atelectasis. Nodular liver surface contour suggestive of cirrh osis. Apparent left greater than right breast skin thickening. If the patie nt has not already undergone screening mammography, recommend bilateral mammog serge. Signed by: Jessica Ramirez MD on 07/13/2019 3:49 PM Dictated By: DUC RAMIREZ MD 1653 Transcribe d By: LIV on 07/13/19 4198 COPY TO: NIKOS KEYS DO Urine TEI9756-65-68 14:49:00* Test Item Value Reference Range Interpretation Comments Urine WBC (test code = 5821-4) 11-20 0-5 H [facility] HospitalUrine [id number] 14:49:00* Test Item Value Reference Range Interpretation Comments Urine RBC (test code = 87872-8) 6-10 0-5 H [facility] HospitalUrine Fugtforw1594-01-58 14:49:00* Test Item Value Reference Range Interpretation Comments Urine Bacteria (test code = 87019-9) FEW NONE [facility] HospitalUrine Epithelial Ptnam6276-78-63 14:49:00 * Test Item Value Reference Range Interpretation Comments Urine Epithelial Cells (test code = 46706-4) FEW NONE [facility] HospitalUrine Fgyoi8391-62-96 14:49:00* Test Item Value Reference Range Interpretation Comments Urine Yeast (test code = 98364-2) FEW NONE H [facility] HospitalUrine Nytct6963-83-25 14:49:00* Test Item Value Reference Range Interpretation Comments Urine Yeast (test code = 16822-1) FEW NONE H [facility] HospitalB-Type Natriuretic Wlcuqgy1554-61-12 14:34:00* Test Item Value Reference Range Interpretation Comments B-Type Natriuretic Peptide (test code = 26735-3) 300.5 0-100 H [facility] HospitalInfluenza Virus Types A,B Antigen 2019-07-13 14:12:00* Test Item Value Reference Range Interpretation Comments Influenza Virus Types A,B Antigen (test code = 56495-9) NEGATIVE NEGATIVE [facility] HospitalInfluenza Virus Types A,B Antigen 2019-07-13 14:12:00* Test Item Value Reference Range Interpretation Comments Influenza Virus Types A,B Antigen (test code = 60924-4) NEGATIVE NEGATIVE [facility] HospitalUrine Xyykd3616-86-38 14:06:00* Test Item Value Reference Range Interpretation Comments Urine Color (test code = 5778-6) YELLOW YELLOW [facility] HospitalUrine Ssujaqm3792-03-17 14:06:00* Test Item Value Reference Range Interpretation Comments Urine Clarity (test code = 45401-2) SL CLOUDY CLEAR [facility] HospitalUrine Specific Meqfiqx3633-87-99 14:06:00 * Test Item Value Reference Range Interpretation Comments Urine Specific [place] (test code = 5811-5) 1.020 1.010-1.02 5 [facility] HospitalUrine aS1521-43-69 14:06:00* Test Item Value Reference Range Interpretation Comments Urine pH (test code = 95993-0) 6 5-7 [facility] HospitalU[facility] Leukocyte Squujugo7093-82-33 14:06:00* Test Item Value Reference Range Interpretation Comments Urine Leukocyte Esterase (test code = 5799-2) NEGATIVE NEGATIVE [facility] HospitalUrine Trwrqjw9581-94-55 14:06:00* Test Item Value Reference Range Interpretation Comments Urine Nitrite (test code = 68370-9) NEGATIVE NEGATIVE [facility] HospitalUrine Rapuase7679-02-20 14:06:00* Test Item Value Reference Range Interpretation Comments Urine Protein (test code = 5804-0) NEGATIVE NEGATIVE [facility] HospitalUrine Glucose (UA)2019-07-13 14:06:00* Test Item Value Reference Range Interpretation Comments Urine Glucose (UA) (test code = 2349-9) 3+ NEGATIVE H [facility] HospitalUrine Bowytrk3983-57-43 14:06:00* Test Item Value Reference Range Interpretation Comments Urine Ketones (test code = 59306-3) NEGATIVE NEGATIVE [facility] HospitalU[facility] Zgsnuulrdmiq4153-09-04 14:06:00* Test Item Value Reference Range Interpretation Comments Urine Urobilinogen (test code = 35777-6) 8 0.2-1 [facility] HospitalUrine Cqmkjuqvl3044-94-86 14:06:00* Test Item Value Reference Range Interpretation Comments Urine Bilirubin (test code = 1978-6) SMALL NEGATIVE [facility] HospitalUrine Jveui4172-82-95 14:06:00* Test Item Value Reference Range Interpretation Comments Urine Blood (test code = 12898-1) 1+ NEGATIVE [facility] HospitalProthrombin Qxgb4817-48-92 14:04:00* Test Item Value Reference Range Interpretation Comments Prothrombin Time (test code = 5902-2) 20.7 11.9-14.5 H [facility] HospitalProthromb Time International Ratio 2019-07-13 14:04:00* Test Item Value Reference Range Interpretation Comments Prothromb Time International Ratio (test code = 6301-6) 1.65 Oral Anticoagulant Therapy INR Values:1. Low Intensity Therapy 1.5 - 2.02 . Moderate Intensity Therapy 2.0 - 3.03. High Intensity Therapy(1) 2.5 - 3. 54. High Intensity Therapy(2) 3.0 - 4.05. Panic Value INR > 5.0 [facility] HospitalActivated Partial Thromboplast Time 2019-07-13 14:04:00* Test Item Value Reference Range Interpretation Comments Activated Partial Thromboplast Time (test code = 04213-0) 38.7 23.8-35.5 H [facility] HospitalCHEST 2 CNUYM3674-21-41 14:01:00 [facility] [address] [place] [address] Patient Name: DEBORAH AGUERO MR #: [id number] : 1955 Age/Sex: 63/F Req #: [id number] Adm Physician: Ordered by: ANSON TELLES NP Report #: [id number] Location: ER Room/Bed: Procedure: [id number] DX/C HEST 2 VIEWS Exam Date: 07/13/19 Exam Time: 1330 REPORT STATUS: Signed EXAMINATION: CHEST 2 VIEWS INDICATION: Pneumonia COMPARISON: None FI NDINGS: LINES/TUBES:None LUNGS:The lungs are moderately inflated. No f ocal consolidation or pulmonary edema. PLEURA:No pleural effusion or pneu mothorax. MEDIASTINUM:The cardiomediastinal silhouette appears normal in si ze and shape. Atherosclerotic calcifications of the thoracic aorta. BONES /SOFT TISSUES:No acute osseous injury. ABDOMEN:No free air under the diaphr agm. IMPRESSION: No focal pneumonia or pulmonary edema. Signed b y: Jessica Ramirez MD on 07/13/2019 2:02 PM Dictated By: JESSICA RAMIREZ MD Electr onically Signed By: JESSICA RAMIREZ MD on 07/13/191401 Transcribed By: LIV on 0 07/13/191401 COPY TO: ANSON TELLES NP Total Ekzgtvkyn7452-74-12 13:25:00* Test Item Value Reference Range Interpretation Comments Total Bilirubin (test code = 1975-2) 4.7 0.2-1.2 H [facility] HospitalAspartate Amino Transf (AST/SGOT) 2019-07-13 13:25:00* Test Item Value Reference Range Interpretation Comments Aspartate Amino Transf (AST/SGOT) (test code = Aspartate Amino Transf (AST/SGOT)) 33 5-34 [facility] HospitalAlanine Aminotransferase (ALT/SGPT) 2019-07-13 13:25:00* Test Item Value Reference Range Interpretation Comments Alanine Aminotransferase (ALT/SGPT) (test code = 1742-6) 30 0-55 [facility] HospitalTotal Pnaffmq8731-49-37 13:25:00* Test Item Value Reference Range Interpretation Comments Total Protein (test code = 2885-2) 6.3 6.5-8.1 L [facility] HospitalAlbumin2020-02-18 13:25:00* Test Item Value Reference Range Interpretation Comments Albumin (test code = 1751-7) 2.3 3.5-5.0 L [facility] HospitalGlobulin2020-02-18 13:25:00* Test Item Value Reference Range Interpretation Comments Globulin (test code = 80097-8) 4.0 2.3-3.5 H [facility] HospitalAlbumin/Globulin Pwscc2306-22-80 13:25:00 * Test Item Value Reference Range Interpretation Comments Albumin/Globulin Ratio (test code = 1759-0) 0.6 0.8-2.0 L [facility] HospitalAlkaline Jircdnwtlnn6082-20-44 13:25:00* Test Item Value Reference Range Interpretation Comments Alkaline Phosphatase (test code = 6768-6) 257 40-150 H [facility] HospitalYeast detection in urine sediment by light vhevqlopey7524-02-73 12:09:00* Test Item Value Reference Range Interpretation Comments Urine Yeast (test code = 96989-6) FEW NONE [facility] HospitalInfluenza virus A and B antigen identification by wvvgjuwxrgmmszcuis5571-53-57 12:09:00* Test Item Value Reference Range Interpretation Comments Influenza Virus Types A,B Antigen (test code = 39672-0) NEGATIVE NEGATIVE [facility] HospitalYeast detection in urine sediment by light zvhqwxsumf1705-52-29 12:09:00* Test Item Value Reference Range Interpretation Comments Urine Yeast (test code = 85824-9) FEW NONE [facility] HospitalInfluenza virus A and B antigen identification by tqiqmtorhrsrqnwvri7356-82-10 12:09:00* Test Item Value Reference Range Interpretation Comments Influenza Virus Types A,B Antigen (test code = 91025-3) NEGATIVE NEGATIVE [facility] HospitalYeast detection in urine sediment by light pozylbaayr1208-11-36 12:09:00* Test Item Value Reference Range Interpretation Comments Urine Yeast (test code = 63731-3) FEW NONE [facility] HospitalInfluenza virus A and B antigen identification by jwxubvskcdrzrlatyv6678-52-10 12:09:00* Test Item Value Reference Range Interpretation Comments Influenza Virus Types A,B Antigen (test code = 34844-8) NEGATIVE NEGATIVE [facility] HospitalPOCT-GLUCOSE DQJIA4247-76-34 08:32:00* Test Item Value Reference Range Interpretation Comments POC-GLUCOSE METER (BEAKER) (test code = 1538) 297 mg/dL 70-110 H TESTED AT [address] [address] POCT-GLUCOSE WLTBL3796-30-82 07:52:00* Test Item Value Reference Range Interpretation Comments POC-GLUCOSE METER (BEAKER) (test code = 1538) 337 mg/dL 70-110 H TESTED AT [place] [id number] [facility] [address] POCT-GLUCOSE UBOBW2642-80-14 06:53:00* Test Item Value Reference Range Interpretation Comments POC-GLUCOSE METER (BEAKER) (test code = 1538) 356 mg/dL 70-110 H TESTED AT [address] [address] [address], CHEST, WITHOUT SAYHSBKR0942-55-10 18:32:00Referring: Dr. Andreas Rooney Reason for exam:->COUGHReason for exam:->SHORTNESS OF BREATHWhat is the patient's sedation requirement?->No SedationFINAL REPORT INDICATION: Cough and shortness of breath. COMPARISON:Chest radiograph July 27, 2018 TECHNIQUE: Chest CT exam WITHOUT intravenous contrast. The exam was performed according to our department dose-optimization protocol, which includes automated exposure control, adjustments of mA and kV according to patient size. Iterative reconstructions are also sometimes employed. FINDINGS:There is no pneumonia. There is a small left pleural effusion. No suspicious pulmonary nodule or mass is demonstrated. Central airways are clear. No mediastinal or hilar lymphadenopathy is demonstrated. There is cardiomegaly, left atrium AP dimension 4.8 cm. Atherosclerosis of the thoracic aorta is present. Thoracic aorta and main pulmonary artery are normal in caliber. Upper abdomen notable for nodular liver contour suggestive of cirrhosis and cholecystectomy surgical clips. Osseous structures unremarkable. IMPRESSION: No pneumonia. Small left pleural effusion. Signed: Eloy Tidwell MDReport Verified Date/Time: 0 07/27/2018 18:32:17 Reading Location: [facility] C013Y CT Body Reading Room [facility] signed by: ELOY TIDWELL M.D. on 07/27/2018 06:32 PM BASIC METABOLIC NWFBD7695-50-10 15:22:00* Test Item Value Reference Range Interpretation Comments SODIUM (BEAKER) (test code = 381) 139 meq/L 136-145 POTASSIUM (BEAKER) (test code = 379) 4.1 meq/L 3.5-5.1 CHLORIDE (BEAKER) (test code = 382) 110 meq/L 98-107 H CO2 (BEAKER) (test code = 355) 23 meq/L 22-29 BLOOD UREA NITROGEN (BEAKER) (test code = 354) 9 mg/dL 7-21 CREATININE (BEAKER) (test code = 358) 0.95 mg/dL 0.57-1.25 GLUCOSE RANDOM (BEAKER) (test code = 652) 274 mg/dL 70-105 H CALCIUM (BEAKER) (test code = 697) 9.2 mg/dL 8.4-10.2 EGFR (BEAKER) (test code = 1092) 59 mL/min/1.73 sq m ESTIMATED GFR IS NOT ACCURATE CREATININE CLEARANCE IN PREDICTING GLOMERULAR FILTRATION RATE. ESTIMATED GFR IS NOT APPLICABLE FOR DIALYSIS PATIENTS. Specimen moderately ictericCBC W/PLT COUNT & AUTO OHWVUPDZKDAJ1178-29-98 15:10:00* Test Item Value Reference Range Interpretation Comments WHITE BLOOD CELL COUNT (BEAKER) (test code = 775) 5.3 K/ L 3.5- 10.5 RED BLOOD CELL COUNT (BEAKER) (test code = 761) 4.14 M/ L 3.93-5 .22 HEMOGLOBIN (BEAKER) (test code = 410) 13.1 GM/DL 11.2-15.7 HEMATOCRIT (BEAKER) (test code = 411) 40.9 % 34.1-44.9 MEAN CORPUSCULAR VOLUME (BEAKER) (test code = 753) 98.8 fL 79. 4-94.8 H MEAN CORPUSCULAR HEMOGLOBIN (BEAKER) (test code = 751) 31.6 pg 25.6-32.2 MEAN CORPUSCULAR HEMOGLOBIN CONC (BEAKER) (test code = 752) 32.0 GM/DL 32.2-35.5 L RED CELL DISTRIBUTION WIDTH (BEAKER) (test code = 412) 17.0 % 11.7-14.4 H PLATELET COUNT (BEAKER) (test code = 756) 73 K/CU MM 150-450 L MEAN PLATELET VOLUME (BEAKER) (test code = 754) 11.1 fL 9.4-12 .3 NUCLEATED RED BLOOD CELLS (BEAKER) (test code = 413) 0 /100 WBC 0 -0 NEUTROPHILS RELATIVE PERCENT (BEAKER) (test code = 429) 46 % LYMPHOCYTES RELATIVE PERCENT (BEAKER) (test code = 430) 34 % MONOCYTES RELATIVE PERCENT (BEAKER) (test code = 431) 11 % EOSINOPHILS RELATIVE PERCENT (BEAKER) (test code = 432) 9 % BASOPHILS RELATIVE PERCENT (BEAKER) (test code = 437) 1 % NEUTROPHILS ABSOLUTE COUNT (BEAKER) (test code = 670) 2.39 K/ L 1.56-6.13 LYMPHOCYTES ABSOLUTE COUNT (BEAKER) (test code = 414) 1.78 K/ L 1.18-3.74 MONOCYTES ABSOLUTE COUNT (BEAKER) (test code = 415) 0.58 K/ L 0. 24-0.36 H EOSINOPHILS ABSOLUTE COUNT (BEAKER) (test code = 416) 0.45 K/ L 0.04-0.36 H BASOPHILS ABSOLUTE COUNT (BEAKER) (test code = 417) 0.04 K/ L 0. 01-0.08 IMMATURE GRANULOCYTES-RELATIVE PERCENT (BEAKER) (test code = 2801) 0 % 0-1 RAD, CHEST, 2 [id number] 15:09:00Referring: Dr. Andreas Rooney Reason for exam:->COUGHReason for exam:->SHORTNESS OF BREATHFINAL REPORT TECHNIQUE: Frontal and lateral views of the chest. INDICATION: COUGHSHORTNESS OF BREATH. COMPARISON: None. FINDINGS: LINES/TUBES: None. LUNGS: The lungs are well inflated and clear. No consolidation or pulmonary edema. PLEURA: Small left pleural effusion. HEART AND MEDIASTINUM: The cardiomediastinal silhouette is at the upper normal in size. Opacification of th e aortic arch. SOFT TISSUES AND BONES: Surgical clips in the upper abdomen, like ly from a prior cholecystectomy. Mild rightward convex curvature of the thoracic spine. IMPRESSION: Small left pleural effusion with an upper limit of normal c ardiac silhouette. Signed: Wai Nowak MDReport Verified Date/Time: 07/27/2018 1 5:09:12 Reading Location: [address] Consult Reading Room ALYSIS WITHOUT GEWJLSGZSQD0959-51-74 14:53:00* Test Item Value Reference Range Interpretation Comments COLOR (BEAKER) (test code = 470) Light Yellow CLARITY (BEAKER) (test code = 469) Hazy SPECIFIC GRAVITY UA (BEAKER) (test code = 468) 1.006 1.001-1 .035 PH UA (BEAKER) (test code = 467) 5.0 5.0-8.0 PROTEIN UA (BEAKER) (test code = 464) Negative Negative GLUCOSE UA (BEAKER) (test code = 365) 300 mg/dL Negative A KETONES UA (BEAKER) (test code = 371) Negative Negative BILIRUBIN UA (BEAKER) (test code = 462) Negative Negative BLOOD UA (BEAKER) (test code = 461) Trace Negative A NITRITE UA (BEAKER) (test code = 465) Negative Negative LEUKOCYTE ESTERASE UA (BEAKER) (test code = 466) Moderate Negat michael A UROBILINOGEN UA (BEAKER) (test code = 463) 0.2 mg/dL 0.2-1.0 SOURCE(BEAKER) (test code = 2795) Urine [id number] 15:47:00* Test Item Value Reference Range Interpretation Comments Urine WBC (test code = 5821-4) NONE 0-5 [facility] HospitalUrine YNP8526-53-71 15:47:00* Test Item Value Reference Range Interpretation Comments Urine RBC (test code = 20880-2) 0-5 0-5 [facility] Zbdbooyg1732-33-74 15:47:00* Test Item Value Reference Range Interpretation Comments Urine Bacteria (test code = 18403-4) MANY NONE H [facility] Epithelial Zigmu1985-16-26 15:47:00 * Test Item Value Reference Range Interpretation Comments Urine Epithelial Cells (test code = 95934-6) FEW NONE [facility] Amorphous Dbgieudz6556-80-63 15:47:00* Test Item Value Reference Range Interpretation Comments Urine Amorphous Sediment (test code = 8246-1) MODERATE FEW H [facility] HospitalU[facility] Stxzu6109-75-85 15:39:00* Test Item Value Reference Range Interpretation Comments Urine Color (test code = 5778-6) YELLOW YELLOW [facility] Bdfdfcr8817-99-77 15:39:00* Test Item Value Reference Range Interpretation Comments Urine Clarity (test code = 32080-5) SL CLOUDY CLEAR [facility] Specific Pxcutnp7078-82-73 15:39:00 * Test Item Value Reference Range Interpretation Comments Urine Specific [place] (test code = 5811-5) 1.015 1.010-1.02 5 [facility] zI2337-81-39 15:39:00* Test Item Value Reference Range Interpretation Comments Urine pH (test code = 50624-8) 6 5-7 [facility] Leukocyte Lugboslq8934-34-91 15:39:00* Test Item Value Reference Range Interpretation Comments Urine Leukocyte Esterase (test code = 5799-2) NEGATIVE NEGATIVE [facility] Xszkqgk9558-11-56 15:39:00* Test Item Value Reference Range Interpretation Comments Urine Nitrite (test code = 10153-0) NEGATIVE NEGATIVE [facility] Ukkvlhx6348-55-74 15:39:00* Test Item Value Reference Range Interpretation Comments Urine Protein (test code = 5804-0) NEGATIVE NEGATIVE [facility] Glucose (UA)2018-07-10 15:39:00* Test Item Value Reference Range Interpretation Comments Urine Glucose (UA) (test code = 2349-9) 3+ NEGATIVE H [facility] Bklyyfb5313-43-74 15:39:00* Test Item Value Reference Range Interpretation Comments Urine Ketones (test code = 25206-6) NEGATIVE NEGATIVE [facility] Wjerftweczor0193-47-80 15:39:00* Test Item Value Reference Range Interpretation Comments Urine Urobilinogen (test code = 07061-4) 0.2 0.2-1 [facility] Rlyazscaj7408-85-10 15:39:00* Test Item Value Reference Range Interpretation Comments Urine Bilirubin (test code = 1978-6) NEGATIVE NEGATIVE [facility] Nijqo3771-81-16 15:39:00* Test Item Value Reference Range Interpretation Comments Urine Blood (test code = 74752-7) 1+ [facility]GATIVE [facility] Quvym5789-23-76 15:05:00* Test Item Value Reference Range Interpretation Comments Sodium Level (test code = 2951-2) 142 136-145 [facility] HospitalPotassium Iowsn3477-92-44 15:05:00* Test Item Value Reference Range Interpretation Comments Potassium Level (test code = 2823-3) 4.0 3.5-5.1 [facility] HospitalChloride Uzccn0021-69-24 15:05:00* Test Item Value Reference Range Interpretation Comments Chloride Level (test code = 2075-0) 109 98-107 H [facility] HospitalCarbon Dioxide Udmkd8422-86-04 15:05:00* Test Item Value Reference Range Interpretation Comments Carbon Dioxide Level (test code = 2028-9) 23 22-29 [facility] HospitalAnion Rdq9530-73-57 15:05:00* Test Item Value Reference Range Interpretation Comments Anion Gap (test code = 13674-2) 14.0 8-16 [facility] HospitalBlood Urea Kmducrpn3831-41-67 15:05:00* Test Item Value Reference Range Interpretation Comments Blood Urea Nitrogen (test code = 3094-0) 10 7-26 [facility] HospitalCreatinine2019-02-15 15:05:00* Test Item Value Reference Range Interpretation Comments Creatinine (test code = 2160-0) 1.05 0.57-1.11 [facility] HospitalBUN/Creatinine Pwkmn3058-93-78 15:05:00* Test Item Value Reference Range Interpretation Comments BUN/Creatinine Ratio (test code = 3097-3) 10 6-25 [facility] HospitalEstimat Glomerular Filtration Rate 2018-07-10 15:05:00* Test Item Value Reference Range Interpretation Comments Estimat Glomerular Filtration Rate (test code = 961433329) 53 >60 L Ranges were taken from the National Kidney Disease Education Program and the [facility] literature.Reference ranges:60 or greater: Opotey37-90 ( for 3 consecutive months): Chronic kidney disease 15 or less: Kidney failureNocona General HospitalGlucose Zaxae8594-15-70 15:05:00* Test Item Value Reference Range Interpretation Comments Glucose Level (test code = IYD8464) 303 74-118 H [facility] HospitalCalcium Gratj0164-04-04 15:05:00* Test Item Value Reference Range Interpretation Comments Calcium Level (test code = 46547-8) 8.5 8.4-10.2 [facility] HospitalTotal Huycjsmiw8904-30-85 15:05:00* Test Item Value Reference Range Interpretation Comments Total Bilirubin (test code = 1975-2) 3.9 0.2-1.2 H [facility] HospitalAspartate Amino Transf (AST/SGOT) 2018-07-10 15:05:00* Test Item Value Reference Range Interpretation Comments Aspartate Amino Transf (AST/SGOT) (test code = Aspartate Amino Transf (AST/SGOT)) 32 5-34 [facility] HospitalAlanine Aminotransferase (ALT/SGPT) 2018-07-10 15:05:00* Test Item Value Reference Range Interpretation Comments Alanine Aminotransferase (ALT/SGPT) (test code = 1742-6) 23 0-55 [facility] HospitalTotal Cdnygba4959-61-13 15:05:00* Test Item Value Reference Range Interpretation Comments Total Protein (test code = 2885-2) 6.0 6.5-8.1 L [facility] HospitalAlbumin2019-02-15 15:05:00* Test Item Value Reference Range Interpretation Comments Albumin (test code = 1751-7) 2.5 3.5-5.0 L [facility] HospitalGlobulin2019-02-15 15:05:00* Test Item Value Reference Range Interpretation Comments Globulin (test code = 75742-7) 3.5 2.3-3.5 [facility] HospitalAlbumin/Globulin Dblng7267-81-87 15:05:00 * Test Item Value Reference Range Interpretation Comments Albumin/Globulin Ratio (test code = 1759-0) 0.7 0.8-2.0 L [facility] HospitalAlkaline Srxnrckebjg8460-47-69 15:05:00* Test Item Value Reference Range Interpretation Comments Alkaline Phosphatase (test code = 6768-6) 273 40-150 H [facility] HospitalB-Type Natriuretic Lgvjqrr8631-85-63 15:05:00* Test Item Value Reference Range Interpretation Comments B-Type Natriuretic Peptide (test code = 27330-1) 346.9 0-100 H [facility] HospitalCreatine Poxvpp0835-73-99 15:05:00* Test Item Value Reference Range Interpretation Comments Creatine Kinase (test code = 2157-6) 87 29-168 [facility] HospitalCreatine Kinase VP4858-33-11 15:05:00* Test Item Value Reference Range Interpretation Comments Creatine Kinase MB (test code = 41008-8) 1.00 0-5.0 [facility] HospitalTroponin O1269-30-27 15:05:00* Test Item Value Reference Range Interpretation Comments Troponin I (test code = HCR5091) 0.002 0-0.300 [facility] 2 UYEVR6100-76-96 14:49:00 [facility] [address] [address] Patient Name: DEBORAH AGUERO MR #: [id number] : 1955 Age/Sex: 62/F Req #: [id number] Adm Physician: Ordered by: ANSON TELLES NP Report #: [id number] Location: ER Room/Bed: Procedure: [id number] DX/CORY ST 2 VIEWS Exam Date: 07/10/18 Exam Time: 1310 REPORT STATUS: Signed EXAMINATION: C HEST 2 VIEWS INDICATION: Dyspnea. COMPARISON: Chest radiograph . FINDINGS: TUBES and LINES: None. LUNGS: Patchy left retrocardiac opacity. Mild central vascular congestion. No evidence of pulmona ry edema. PLEURA: Small left pleural effusion. No evidence of pneumothorax . HEART AND MEDIASTINUM: The cardiomediastinal silhouette is unremarkable. BONES AND SOFT TISSUES: No acute osseous lesion. Soft tissues are unremarkable. UPPER ABDOMEN: No free air under the diaphragm. Status post c holecystectomy. IMPRESSION: Small left pleural effusion with patchy left retrocardiac opacity which could represent atelectasis or pneumonia in the ap propriate clinical setting. Follow chest radiograph is suggested in 6-8 weeks to assess for resolution. Signed by: Dr. Francy Paul MD on 07/10/2018 2:56 P M Dictated By: FRANCY PAUL MD 53 Transcribed By: LIV on 07/10/181455 COPY TO: ANSON TELLES NP Prothrombin Aubx3856-12-15 14:45:00* Test Item Value Reference Range Interpretation Comments Prothrombin Time (test code = 5902-2) 19.6 11.9-14.5 H [facility] HospitalProthromb Time International Ratio 2018-07-10 14:45:00* Test Item Value Reference Range Interpretation Comments Prothromb Time International Ratio (test code = 6301-6) 1.52 Oral Anticoagulant Therapy INR Values:1. Low Intensity Therapy 1.5 - 2.02 . Moderate Intensity Therapy 2.0 - 3.03. High Intensity Therapy(1) 2.5 - 3. 54. High Intensity Therapy(2) 3.0 - 4.05. Panic Value INR > 5.0 [facility] HospitalActivated Partial Thromboplast Time 2018-07-10 14:45:00* Test Item Value Reference Range Interpretation Comments Activated Partial Thromboplast Time (test code = 82890-0) 39.1 23.8-35.5 H [facility] HospitalWhite Blood Srues8792-66-19 12:55:00* Test Item Value Reference Range Interpretation Comments White Blood Count (test code = 6690-2) 5.92 4.8-10.8 [facility] HospitalRed Blood Gigmf1503-51-33 12:55:00* Test Item Value Reference Range Interpretation Comments Red Blood Count (test code = 789-8) 4.06 3.6-5.1 [facility] HospitalHemoglobin2019-02-15 12:55:00* Test Item Value Reference Range Interpretation Comments Hemoglobin (test code = 88236-5) 12.9 12.0-16.0 [facility] HospitalHematocrit2019-02-15 12:55:00* Test Item Value Reference Range Interpretation Comments Hematocrit (test code = 4544-3) 38.9 34.2-44.1 [facility] HospitalMean Corpuscular Svxijv1319-46-80 12:55:00* Test Item Value Reference Range Interpretation Comments Mean Corpuscular Volume (test code = 787-2) 95.8 81-99 [facility] HospitalMean Corpuscular Duosbhrrzm3489-52-25 12:55:00* Test Item Value Reference Range Interpretation Comments Mean Corpuscular Hemoglobin (test code = 785-6) 31.8 28-32 [facility] HospitalMean Corpuscular Hemoglobin Concent 2018-07-10 12:55:00* Test Item Value Reference Range Interpretation Comments Mean Corpuscular Hemoglobin Concent (test code = 786-4) 33.2 31-35 [facility] HospitalRed Cell Distribution Uyekm3682-05-01 12:55:00* Test Item Value Reference Range Interpretation Comments Red Cell Distribution Width (test code = 21570-0) 17.1 11.7 -14.4 H [facility] HospitalPlatelet Ylnkz1485-18-03 12:55:00* Test Item Value Reference Range Interpretation Comments Platelet Count (test code = 777-3) 112 140-360 L [facility] HospitalNeutrophils (%) (Auto)2018-07-10 12:55:00 * Test Item Value Reference Range Interpretation Comments Neutrophils (%) (Auto) (test code = 82950-8) 52.0 38.7-80.0 [facility] HospitalLymphocytes (%) (Auto)2018-07-10 12:55:00 * Test Item Value Reference Range Interpretation Comments Lymphocytes (%) (Auto) (test code = 736-9) 25.5 18.0-39.1 [facility] HospitalMonocytes (%) (Auto)2018-07-10 12:55:00* Test Item Value Reference Range Interpretation Comments Monocytes (%) (Auto) (test code = 5905-5) 14.0 4.4-11.3 H [facility] HospitalEosinophils (%) (Auto)2018-07-10 12:55:00 * Test Item Value Reference Range Interpretation Comments Eosinophils (%) (Auto) (test code = 713-8) 7.6 0.0-6.0 H [facility] HospitalBasophils (%) (Auto)2018-07-10 12:55:00* Test Item Value Reference Range Interpretation Comments Basophils (%) (Auto) (test code = 706-2) 0.7 0.0-1.0 [facility] HospitalIM GRANULOCYTES %2018-07-10 12:55:00* Test Item Value Reference Range Interpretation Comments IM GRANULOCYTES % (test code = IM GRANULOCYTES %) 0.2 0.0- 1.0 [facility] HospitalNeutrophils # (Auto)2018-07-10 12:55:00* Test Item Value Reference Range Interpretation Comments Neutrophils # (Auto) (test code = 751-8) 3.1 2.1-6.9 [facility] HospitalLymphocytes # (Auto)2018-07-10 12:55:00* Test Item Value Reference Range Interpretation Comments Lymphocytes # (Auto) (test code = 59680-0) 1.5 1.0-3.2 [facility] HospitalMonocytes # (Auto)2018-07-10 12:55:00* Test Item Value Reference Range Interpretation Comments Monocytes # (Auto) (test code = 742-7) 0.8 0.2-0.8 [facility] HospitalEosinophils # (Auto)2018-07-10 12:55:00* Test Item Value Reference Range Interpretation Comments Eosinophils # (Auto) (test code = 711-2) 0.5 0.0-0.4 H [facility] HospitalBasophils # (Auto)2018-07-10 12:55:00* Test Item Value Reference Range Interpretation Comments Basophils # (Auto) (test code = 704-7) 0.0 0.0-0.1 [facility] HospitalAbsolute Immature Granulocyte (auto 2018-07-10 12:55:00* Test Item Value Reference Range Interpretation Comments Absolute Immature Granulocyte (auto ([place] t code = Absolute Immature Granulocyte (auto) 0.01 0-0.1 [facility] HospitalBLOOD GAS, XYVECGQR1503-06-68 14:16:00* Test Item Value Reference Range Interpretation Comments PH ARTERIAL (BEAKER) (test code = 383) 7.43 7.35-7.45 PCO2 ARTERIAL (BEAKER) (test code = 384) 36 mmHg 35-45 PO2 ARTERIAL (BEAKER) (test code = 385) 89 mmHg 80-90 O2 SATURATION ARTERIAL (BEAKER) (test code = 386) 97.1 % 96.0 -97.0 H HCO3 ARTERIAL (BEAKER) (test code = 388) 23 mmol/L 21-29 BASE EXCESS ARTERIAL (BEAKER) (test code = 387) -1.0 mmol/L -2.0-3 .0 PATIENT TEMPERATURE (BEAKER) (test code = 1818) 37.0 C FIO2 (BEAKER) (test code = 1819) 21.0 % ALPHA FETOPROTEIN (AFP), TUMOR EMUNTX1954-77-23 20:44:00* Test Item Value Reference Range Interpretation Comments ALPHA-FETOPROTEIN (BEAKER) (test code = 1094) 3.0 ng/mL <10.0 BASIC METABOLIC SUUKR2286-77-01 18:02:00* Test Item Value Reference Range Interpretation Comments SODIUM (BEAKER) (test code = 381) 139 meq/L 136-145 POTASSIUM (BEAKER) (test code = 379) 4.4 meq/L 3.5-5.1 Specimen slightly hemolyzed CHLORIDE (BEAKER) (test code = 382) 108 meq/L 98-107 H CO2 (BEAKER) (test code = 355) 24 meq/L 22-29 BLOOD UREA NITROGEN (BEAKER) (test code = 354) 10 mg/dL 7-21 CREATININE (BEAKER) (test code = 358) 0.94 mg/dL 0.57-1.25 Specimen slightly hemolyzed GLUCOSE RANDOM (BEAKER) (test code = 652) 302 mg/dL 70-105 H CALCIUM (BEAKER) (test code = 697) 9.4 mg/dL 8.4-10.2 EGFR (BEAKER) (test code = 1092) 60 mL/min/1.73 sq m ESTIMATED GFR IS NOT ACCURATE CREATININE CLEARANCE IN PREDICTING GLOMERULAR FILTRATION RATE. ESTIMATED GFR IS NOT APPLICABLE FOR DIALYSIS PATIENTS. Specimen slightly ictericHEPATIC FUNCTION HJOGB9330-62-95 18:02:00* Test Item Value Reference Range Interpretation Comments TOTAL PROTEIN (BEAKER) (test code = 770) 7.0 gm/dL 6.0-8.3 Specimen slightly hemolyzed ALBUMIN (BEAKER) (test code = 1145) 2.9 g/dL 3.5-5.0 L Specimen slightly hemolyzed BILIRUBIN TOTAL (BEAKER) (test code = 377) 3.6 mg/dL 0.2-1.2 H Specimen slightly hemolyzed BILIRUBIN DIRECT (BEAKER) (test code = 706) 1.2 mg/dL 0.1-0.5 H Specimen slightly hemolyzed ALKALINE PHOSPHATASE (BEAKER) (test code = 346) 304 U/L 40-150 H AST (SGOT) (BEAKER) (test code = 353) 33 U/L 5-34 Specimen slightly hemolyzed ALT (SGPT) (BEAKER) (test code = 347) 23 U/L 6-55 Specimen slightly hemolyzed Specimen slightly ictericPROTHROMBIN TIME/GTE0915-08-58 17:05:00* Test Item Value Reference Range Interpretation Comments PROTIME (BEAKER) (test code = 759) 17.8 seconds 11.7-14.7 H INR (BEAKER) (test code = 370) 1.5 <=5.9 RECOMMENDED COUMADIN/WARFARIN INR THERAPY RANGESSTANDARD DOSE: 2.0 - 3.0 Inclu keila: PROPHYLAXIS for venous thrombosis, systemic embolization; TREATMENT for ольга ous thrombosis and/or pulmonary embolus.HIGH RISK: Target INR is 2.5-3.5 for pat ients with mechanical heart valves.CBC W/PLT COUNT & AUTO IITCOLZDWPUW1849-29-11 16:56:00* Test Item Value Reference Range Interpretation Comments WHITE BLOOD CELL COUNT (BEAKER) (test code = 775) 5.3 K/ L 3.5- 10.5 RED BLOOD CELL COUNT (BEAKER) (test code = 761) 4.00 M/ L 3.93-5 .22 HEMOGLOBIN (BEAKER) (test code = 410) 12.7 GM/DL 11.2-15.7 HEMATOCRIT (BEAKER) (test code = 411) 39.6 % 34.1-44.9 MEAN CORPUSCULAR VOLUME (BEAKER) (test code = 753) 99.0 fL 79. 4-94.8 H MEAN CORPUSCULAR HEMOGLOBIN (BEAKER) (test code = 751) 31.8 pg 25.6-32.2 MEAN CORPUSCULAR HEMOGLOBIN CONC (BEAKER) (test code = 752) 32.1 GM/DL 32.2-35.5 L RED CELL DISTRIBUTION WIDTH (BEAKER) (test code = 412) 14.8 % 11.7-14.4 H PLATELET COUNT (BEAKER) (test code = 756) 68 K/CU MM 150-450 L MEAN PLATELET VOLUME (BEAKER) (test code = 754) 11.2 fL 9.4-12 .3 NUCLEATED RED BLOOD CELLS (BEAKER) (test code = 413) 0 /100 WBC 0 -0 NEUTROPHILS RELATIVE PERCENT (BEAKER) (test code = 429) 45 % LYMPHOCYTES RELATIVE PERCENT (BEAKER) (test code = 430) 36 % MONOCYTES RELATIVE PERCENT (BEAKER) (test code = 431) 10 % EOSINOPHILS RELATIVE PERCENT (BEAKER) (test code = 432) 8 % BASOPHILS RELATIVE PERCENT (BEAKER) (test code = 437) 0 % NEUTROPHILS ABSOLUTE COUNT (BEAKER) (test code = 670) 2.34 K/ L 1.56-6.13 LYMPHOCYTES ABSOLUTE COUNT (BEAKER) (test code = 414) 1.91 K/ L 1.18-3.74 MONOCYTES ABSOLUTE COUNT (BEAKER) (test code = 415) 0.53 K/ L 0. 24-0.36 H EOSINOPHILS ABSOLUTE COUNT (BEAKER) (test code = 416) 0.44 K/ L 0.04-0.36 H BASOPHILS ABSOLUTE COUNT (BEAKER) (test code = 417) 0.02 K/ L 0. 01-0.08 IMMATURE GRANULOCYTES-RELATIVE PERCENT (BEAKER) (test code = 2801) 0 % 0-1 Bedside Bmambrk9879-26-69 11:56:00* Test Item Value Reference Range Interpretation Comments Bedside Glucose (test code = 82294-5) 267 70-120 H Meter ID: [id number] General HospitalBedside Glucose 2017-12-01 11:56:00* Test Item Value Reference Range Interpretation Comments Bedside Glucose (test code = 73816-2) 267 70-120 H Meter ID: [id number] Orthopedic Hospitalodium Level 2017-12-01 06:00:00* Test Item Value Reference Range Interpretation Comments Sodium Level (test code = 2951-2) 142 136-145 [facility] HospitalPotassium Ylbnx6885-44-36 06:00:00* Test Item Value Reference Range Interpretation Comments Potassium Level (test code = 2823-3) 3.9 3.5-5.1 [facility] HospitalChloride Jsbfj8437-67-29 06:00:00* Test Item Value Reference Range Interpretation Comments Chloride Level (test code = 2075-0) 114 98-107 H [facility] HospitalCarbon Dioxide Zlzbq4683-38-04 06:00:00* Test Item Value Reference Range Interpretation Comments Carbon Dioxide Level (test code = 2028-9) 24 22-29 [facility] HospitalAnion Ppb7645-91-84 06:00:00* Test Item Value Reference Range Interpretation Comments Anion Gap (test code = 05506-0) 7.9 8-16 L [facility] HospitalBlood Urea Ksdxwamu4866-79-46 06:00:00* Test Item Value Reference Range Interpretation Comments Blood Urea Nitrogen (test code = 3094-0) 13 7-26 [facility] HospitalCreatinine2018-07-09 06:00:00* Test Item Value Reference Range Interpretation Comments Creatinine (test code = 2160-0) 1.27 0.57-1.11 H [facility] HospitalBUN/Creatinine Crsfz3373-97-85 06:00:00* Test Item Value Reference Range Interpretation Comments BUN/Creatinine Ratio (test code = 3097-3) 10 6-25 [facility] HospitalEstimat Glomerular Filtration Rate 2017-12-01 06:00:00* Test Item Value Reference Range Interpretation Comments Estimat Glomerular Filtration Rate (test code = 12685-4) 42 >60 L Ranges were taken from the National Kidney Disease Education Program and the [facility] literature.Reference ranges:60 or greater: Cytjpl89-62 ( for 3 consecutive months): Chronic kidney disease 15 or less: Kidney failureNocona General HospitalGlucose Mtnfl6572-41-81 06:00:00* Test Item Value Reference Range Interpretation Comments Glucose Level (test code = LKS6526) 243 74-118 H [facility] HospitalCalcium Kxtyq4947-67-01 06:00:00* Test Item Value Reference Range Interpretation Comments Calcium Level (test code = 66077-9) 9.4 8.4-10.2 [facility] HospitalTotal Zfxggbpln2354-96-51 06:00:00* Test Item Value Reference Range Interpretation Comments Total Bilirubin (test code = 1975-2) 2.4 0.2-1.2 H [facility] Anejljsul2186-45-26 06:00:00* Test Item Value Reference Range Interpretation Comments Direct Bilirubin (test code = 46261-5) 0.9 0.0-0.5 H [facility] HospitalAspartate Amino Transf (AST/SGOT) 2017-12-01 06:00:00* Test Item Value Reference Range Interpretation Comments Aspartate Amino Transf (AST/SGOT) (test code = Aspartate Amino Transf (AST/SGOT)) 52 5-34 H [facility] HospitalAlanine Aminotransferase (ALT/SGPT) 2017-12-01 06:00:00* Test Item Value Reference Range Interpretation Comments Alanine Aminotransferase (ALT/SGPT) (test code = 1742-6) 36 0-55 [facility] Vrvewht5058-86-43 06:00:00* Test Item Value Reference Range Interpretation Comments Total Protein (test code = 2885-2) 6.2 6.5-8.1 L [facility] HospitalAlbumin2018-07-09 06:00:00* Test Item Value Reference Range Interpretation Comments Albumin (test code = 1751-7) 2.5 3.5-5.0 L [facility] HospitalAlkaline Imvuhuykhcz8771-23-03 06:00:00* Test Item Value Reference Range Interpretation Comments Alkaline Phosphatase (test code = 6768-6) 216 40-150 [facility]rect Zznsxtdup0165-59-80 06:00:00* Test Item Value Reference Range Interpretation Comments Direct Bilirubin (test code = 27899-0) 0.9 0.0-0.5 H [facility] HospitalAmmonia2018-07-09 05:48:00* Test Item Value Reference Range Interpretation Comments Ammonia (test code = 11591-2) 117 31-123 [facility] HospitalAmmonia2018-07-09 05:48:00* Test Item Value Reference Range Interpretation Comments Ammonia (test code = 18649-5) 117 31-123 [facility] HospitalWhite Blood Kdmhd4813-29-40 05:26:00* Test Item Value Reference Range Interpretation Comments White Blood Count (test code = 6690-2) 4.62 4.8-10.8 L [facility] HospitalRed Blood Yqpol3680-42-93 05:26:00* Test Item Value Reference Range Interpretation Comments Red Blood Count (test code = 789-8) 3.51 3.6-5.1 L [facility] HospitalHemoglobin2018-07-09 05:26:00* Test Item Value Reference Range Interpretation Comments Hemoglobin (test code = 10033-8) 11.7 12.0-16.0 L [facility] HospitalHematocrit2018-07-09 05:26:00* Test Item Value Reference Range Interpretation Comments Hematocrit (test code = 4544-3) 35.6 34.2-44.1 [facility] HospitalMean Corpuscular Gdfofg8972-08-01 05:26:00* Test Item Value Reference Range Interpretation Comments Mean Corpuscular Volume (test code = 787-2) 101.4 81-99 H [facility] HospitalMean Corpuscular Iapohkzzjm6685-90-68 05:26:00* Test Item Value Reference Range Interpretation Comments Mean Corpuscular Hemoglobin (test code = 785-6) 33.3 28-32 H [facility] HospitalMean Corpuscular Hemoglobin Concent 2017-12-01 05:26:00* Test Item Value Reference Range Interpretation Comments Mean Corpuscular Hemoglobin Concent (test code = 786-4) 32.9 31-35 [facility] HospitalRed Cell Distribution Slrxk0665-26-69 05:26:00* Test Item Value Reference Range Interpretation Comments Red Cell Distribution Width (test code = 25456-3) 14.6 11.7 -14.4 H [facility] HospitalPlatelet Pyfzy7359-70-21 05:26:00* Test Item Value Reference Range Interpretation Comments Platelet Count (test code = 777-3) 65 140-360 L [facility] HospitalNeutrophils (%) (Auto)2017-12-01 05:26:00 * Test Item Value Reference Range Interpretation Comments Neutrophils (%) (Auto) (test code = 69963-8) 46.0 38.7-80.0 [facility] HospitalLymphocytes (%) (Auto)2017-12-01 05:26:00 * Test Item Value Reference Range Interpretation Comments Lymphocytes (%) (Auto) (test code = 736-9) 36.1 18.0-39.1 [facility] HospitalMonocytes (%) (Auto)2017-12-01 05:26:00* Test Item Value Reference Range Interpretation Comments Monocytes (%) (Auto) (test code = 5905-5) 10.4 4.4-11.3 [facility] HospitalEosinophils (%) (Auto)2017-12-01 05:26:00 * Test Item Value Reference Range Interpretation Comments Eosinophils (%) (Auto) (test code = 713-8) 6.9 0.0-6.0 H [facility] HospitalBasophils (%) (Auto)2017-12-01 05:26:00* Test Item Value Reference Range Interpretation Comments Basophils (%) (Auto) (test code = 706-2) 0.4 0.0-1.0 [facility] HospitalIM GRANULOCYTES %2017-12-01 05:26:00* Test Item Value Reference Range Interpretation Comments IM GRANULOCYTES % (test code = IM GRANULOCYTES %) 0.2 0.0- 1.0 [facility] HospitalNeutrophils # (Auto)2017-12-01 05:26:00* Test Item Value Reference Range Interpretation Comments Neutrophils # (Auto) (test code = 751-8) 2.1 2.1-6.9 [facility] HospitalLymphocytes # (Auto)2017-12-01 05:26:00* Test Item Value Reference Range Interpretation Comments Lymphocytes # (Auto) (test code = 82457-0) 1.7 1.0-3.2 [facility] HospitalMonocytes # (Auto)2017-12-01 05:26:00* Test Item Value Reference Range Interpretation Comments Monocytes # (Auto) (test code = 742-7) 0.5 0.2-0.8 [facility] HospitalEosinophils # (Auto)2017-12-01 05:26:00* Test Item Value Reference Range Interpretation Comments Eosinophils # (Auto) (test code = 711-2) 0.3 0.0-0.4 [facility] HospitalBasophils # (Auto)2017-12-01 05:26:00* Test Item Value Reference Range Interpretation Comments Basophils # (Auto) (test code = 704-7) 0.0 0.0-0.1 [facility] HospitalAbsolute Immature Granulocyte (auto 2017-12-01 05:26:00* Test Item Value Reference Range Interpretation Comments Absolute Immature Granulocyte (auto ([place] t code = Absolute Immature Granulocyte (auto) 0.01 0-0.1 [facility] HospitalGlobulin2018-07-08 06:20:00* Test Item Value Reference Range Interpretation Comments Globulin (test code = 57673-7) 3.5 2.3-3.5 [facility] HospitalAlbumin/Globulin Damew8863-37-33 06:20:00 * Test Item Value Reference Range Interpretation Comments Albumin/Globulin Ratio (test code = 1759-0) 0.7 0.8-2.0 L [facility] HospitalCT ABDOMEN/PELVIS [id number] 19:13:00 [facility] [address] [place] [address] Patient Name: DEBORAH AGUERO MR #: [id number] : 0 1955 Age/Sex: 62/F Req #: [id number] Adm Physician: STORMY RYAN MD Ordered by: STORMY RYAN MD Report #: [id number] Locatio n: MED/SURG2 Room/Bed: [facility] Procedure: [id number] CT/ CT ABDOMEN/PELVIS WO Exam Date: 11/29/17 Exam Time: 1615 REPORT STATUS: Signed EXAM: CT ABDOMEN AND PELVIS without IV CONTR AST INDICATION: Abdominal pain, cirrhosis COMPARISON: CT of the abdomen an d pelvis March 03, 2017 TECHNIQUE: The abdomen and pelvis were scanned using a multidetector helical scanner. Coronal and sagittal reformations were obtain ed. Routine protocol performed. IV Contrast: None Oral Contrast: Gastrogra fin CTDIvol has been reviewed. It is below the limits set by the Radiation Pro tocol Committee (RPC). FINDINGS: LOWER THORAX: No consolidations L IVER: No masses. Nodular liver contour. BILIARY: Cholecystectomy. No abnormal ductal dilation. SPLEEN: The spleen is at the upper limits of normal in si ze. PANCREAS: No masses ADRENALS: No nodules RIGHT KIDNEY: No nephro ureterolithiasis or hydronephrosis. LEFT KIDNEY: Punctate nonobstructing s tone in the interpolar region of the left kidney. GI TRACT: No wall thick ening or obstruction. VESSELS: Mild atherosclerotic changes of the abd ominal aorta without aneurysm. 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 PERITONEUM/RETROPERITONEUM: No free air or fluid LYMPH NODES: No lymphadenopathy REPRODUCTIVE ORGANS: Normal BLADDER: Normal SOFT TISSUES: Normal BONES: No suspicious bone lesions. IMPRESSION: Cirrhos is with evidence of portal hypertension. No abdominal ascites. No significant interval change from prior exam. Signed by: Dr. Nestor Arellano M.D. on 11/29/2017 7:23 PM Dictated By: NESTOR ARELLANO MD 22 Transcribed By: LIV on 11/29/171922 COPY TO: STORMY RYAN MD CHEST SINGLE (PORTABLE)2017-11-29 05:17:00 [facility] [address] [address] Patient Name: DEBORAH AGUERO MR #: [id number] : 0 1955 Age/Sex: 62/F Req #: [id number] Adm Physician: Ordered by: RAMU PATEL MD Report #: [id number] Location: ER Ro om/Bed: Procedure: [id number] DX/CHEST SINGLE (PORTABL E) Exam Date: 11/29/17 Exam Time: 0430 REPORT STATUS: Signed EXAM: CHEST SINGLE (PORTABLE), AP 1 view INDICATION: History of asthma, cough COMPARISON: AP view of the chest November 10, 2017 FINDINGS: LINES/TUBES: None LUNGS: No consolidations or edema. PLEURA: No e ffusions or pneumothorax. HEART AND MEDIASTINUM: Normal size and contour. BONES AND SOFT TISSUES: No acute findings. IMPRESSION: No acute thor acic abnormality. Signed by: Dr. Nestor Arellano M.D. on 11/29/2017 5:17 AM Dictated By: NESTOR ARELLANO MD 6 Transcribed By: LIV on 11/29/17516 COPY T O: RAMU PATEL MD Urine [id number] 04:51:00* Test Item Value Reference Range Interpretation Comments Urine WBC (test code = 5821-4) NONE 0-5 [facility] HospitalUrine SFN5737-73-05 04:51:00* Test Item Value Reference Range Interpretation Comments Urine RBC (test code = 58667-9) 0-5 0-5 [facility] HospitalU[facility] Gfdkogpp4856-11-99 04:51:00* Test Item Value Reference Range Interpretation Comments Urine Bacteria (test code = 96684-1) MODERATE NONE H [facility] HospitalUrine Epithelial Dyjyw3151-37-50 04:51:00 * Test Item Value Reference Range Interpretation Comments Urine Epithelial Cells (test code = 27703-1) MANY NONE [facility] HospitalUrine Calcium Oxalate Ayjsfqrb1422-65-33 04:51:00* Test Item Value Reference Range Interpretation Comments Urine Calcium Oxalate Crystals (test code = 5774-5) FEW FE W [facility] HospitalUrine Calcium Oxalate Jtnodant5513-80-05 04:51:00* Test Item Value Reference Range Interpretation Comments Urine Calcium Oxalate Crystals (test code = 5774-5) FEW FE W [facility] HospitalUrine Cawax7350-83-24 04:50:00* Test Item Value Reference Range Interpretation Comments Urine Color (test code = 5778-6) YELLOW YELLOW [facility] HospitalUrine Ivdxxha1665-48-25 04:50:00* Test Item Value Reference Range Interpretation Comments Urine Clarity (test code = 04395-8) SL CLOUDY CLEAR [facility] HospitalUrine Specific Bnebqjc3878-35-15 04:50:00 * Test Item Value Reference Range Interpretation Comments Urine Specific [place] (test code = 5811-5) 1.020 1.010-1.02 5 [facility] HospitalUrine oP7425-54-25 04:50:00* Test Item Value Reference Range Interpretation Comments Urine pH (test code = 17634-1) 6 5-7 [facility] HospitalU[facility] Leukocyte Fdpooimj9296-91-78 04:50:00* Test Item Value Reference Range Interpretation Comments Urine Leukocyte Esterase (test code = 5799-2) TRACE NEGATIVE H [facility] HospitalUrine Tcxnqmw4490-41-12 04:50:00* Test Item Value Reference Range Interpretation Comments Urine Nitrite (test code = 17675-0) NEGATIVE NEGATIVE [facility] HospitalUrine Mgyhmev2853-87-85 04:50:00* Test Item Value Reference Range Interpretation Comments Urine Protein (test code = 5804-0) NEGATIVE NEGATIVE [facility] HospitalUrine Glucose (UA)2017-11-29 04:50:00* Test Item Value Reference Range Interpretation Comments Urine Glucose (UA) (test code = 2349-9) NEGATIVE NEGATIVE [facility] HospitalUrine Vyobazz1156-17-58 04:50:00* Test Item Value Reference Range Interpretation Comments Urine Ketones (test code = 61529-1) NEGATIVE NEGATIVE [facility] HospitalUrine Gemeghjxphqu1500-39-72 04:50:00* Test Item Value Reference Range Interpretation Comments Urine Urobilinogen (test code = 14864-8) 0.2 0.2-1 [facility] HospitalUrine Wzumwuinu9744-75-01 04:50:00* Test Item Value Reference Range Interpretation Comments Urine Bilirubin (test code = 1978-6) 1+ NEGATIVE H [facility] HospitalUrine Kcspu4081-76-23 04:50:00* Test Item Value Reference Range Interpretation Comments Urine Blood (test code = 44585-4) NEGATIVE NEGATIVE [facility] HospitalThyroid Stimulating Hormone (TSH) 2017-11-11 07:29:00* Test Item Value Reference Range Interpretation Comments Thyroid Stimulating Hormone (TSH) (test code = 36346-3) 0.386 0.350-4.940 [facility] HospitalThyroid Stimulating Hormone (TSH) 2017-11-11 07:29:00* Test Item Value Reference Range Interpretation Comments Thyroid Stimulating Hormone (TSH) (test code = 92744-1) 0.386 0.350-4.940 [facility] HospitalThyroid Stimulating Hormone (TSH) 2017-11-11 07:29:00* Test Item Value Reference Range Interpretation Comments Thyroid Stimulating Hormone (TSH) (test code = 30789-3) 0.386 0.350-4.940 [facility] HospitalLipase2018-06-19 07:15:00* Test Item Value Reference Range Interpretation Comments Lipase (test code = 3040-3) [facility] HospitalLipase2018-06-19 07:15:00* Test Item Value Reference Range Interpretation Comments Lipase (test code = 3040-3) [facility] HospitalLipase2018-06-19 07:15:00* Test Item Value Reference Range Interpretation Comments Lipase (test code = 3040-3) 18 8-78 [facility] Hdvxx4642-66-78 06:35:00* Test Item Value Reference Range Interpretation Comments Sodium Level (test code = 2951-2) 142 136-145 [facility] HospitalPotassium Hzytk2270-76-08 06:35:00* Test Item Value Reference Range Interpretation Comments Potassium Level (test code = 2823-3) 4.0 3.5-5.1 [facility] HospitalChloride Qlpsp4924-71-78 06:35:00* Test Item Value Reference Range Interpretation Comments Chloride Level (test code = 2075-0) 110 98-107 H [facility] HospitalCarbon Dioxide Gefdh4044-21-27 06:35:00* Test Item Value Reference Range Interpretation Comments Carbon Dioxide Level (test code = 2028-9) 23 22-29 [facility] HospitalAnion Hbw5430-10-40 06:35:00* Test Item Value Reference Range Interpretation Comments Anion Gap (test code = 77764-4) 13.0 8-16 [facility] HospitalBlood Urea Eqxjqwcd4149-57-70 06:35:00* Test Item Value Reference Range Interpretation Comments Blood Urea Nitrogen (test code = 3094-0) 11 7-26 [facility] HospitalCreatinine2018-06-19 06:35:00* Test Item Value Reference Range Interpretation Comments Creatinine (test code = 2160-0) 1.00 0.57-1.11 [facility] HospitalBUN/Creatinine Okcfg1892-45-86 06:35:00* Test Item Value Reference Range Interpretation Comments BUN/Creatinine Ratio (test code = 3097-3) 11 6-25 [facility] HospitalEstimat Glomerular Filtration Rate 2017-11-11 06:35:00* Test Item Value Reference Range Interpretation Comments Estimat Glomerular Filtration Rate (test code = 84961-7) 56 >60 L Ranges were taken from the National Kidney Disease Education Program and the [facility] Kidney Foundation literature.Reference ranges:60 or greater: Mtyyyq18-29 ( for 3 consecutive months): Chronic kidney disease 15 or less: Kidney failureNocona General HospitalGlucose Xcmou4694-32-38 06:35:00* Test Item Value Reference Range Interpretation Comments Glucose Level (test code = BQM6608) 169 74-118 H [facility] HospitalCalcium Kozqa0017-43-19 06:35:00* Test Item Value Reference Range Interpretation Comments Calcium Level (test code = 76272-3) 9.2 8.4-10.2 [facility] HospitalProthrombin Oqkw3642-57-41 06:31:00* Test Item Value Reference Range Interpretation Comments Prothrombin Time (test code = 5902-2) 19.5 11.9-14.5 H [facility] HospitalProthromb Time International Ratio 2017-11-11 06:31:00* Test Item Value Reference Range Interpretation Comments Prothromb Time International Ratio (test code = 6301-6) 1.79 Oral Anticoagulant Therapy INR Values:1. Low Intensity Therapy 1.5 - 2.02 . Moderate Intensity Therapy 2.0 - 3.03. High Intensity Therapy(1) 2.5 - 3. 54. High Intensity Therapy(2) 3.0 - 4.05. Panic Value INR > 5.0 [facility] HospitalProthrombin Wwhw0279-32-08 06:31:00* Test Item Value Reference Range Interpretation Comments Prothrombin Time (test code = 5902-2) 19.5 11.9-14.5 H [facility] HospitalProthromb Time International Ratio 2017-11-11 06:31:00* Test Item Value Reference Range Interpretation Comments Prothromb Time International Ratio (test code = 6301-6) 1.79 Oral Anticoagulant Therapy INR Values:1. Low Intensity Therapy 1.5 - 2.02 . Moderate Intensity Therapy 2.0 - 3.03. High Intensity Therapy(1) 2.5 - 3. 54. High Intensity Therapy(2) 3.0 - 4.05. Panic Value INR > 5.0 [facility] HospitalAmmonia2018-06-19 06:30:00* Test Item Value Reference Range Interpretation Comments Ammonia (test code = 04621-4) 182 31-123 H [facility] HospitalWhite Blood Qhqsk5011-72-39 06:11:00* Test Item Value Reference Range Interpretation Comments White Blood Count (test code = 6690-2) 4.91 4.8-10.8 [facility] HospitalRed Blood Lkcbx5860-81-53 06:11:00* Test Item Value Reference Range Interpretation Comments Red Blood Count (test code = 789-8) 3.81 3.6-5.1 [facility] HospitalHemoglobin2018-06-19 06:11:00* Test Item Value Reference Range Interpretation Comments Hemoglobin (test code = 11249-2) 12.8 12.0-16.0 [facility] HospitalHematocrit2018-06-19 06:11:00* Test Item Value Reference Range Interpretation Comments Hematocrit (test code = 4544-3) 38.1 34.2-44.1 [facility] HospitalMean Corpuscular Nwycaq8063-47-05 06:11:00* Test Item Value Reference Range Interpretation Comments Mean Corpuscular Volume (test code = 787-2) 100.0 81-99 H [facility] HospitalMean Corpuscular Fqvvtxeexb1797-80-02 06:11:00* Test Item Value Reference Range Interpretation Comments Mean Corpuscular Hemoglobin (test code = 785-6) 33.6 28-32 H [facility] HospitalMean Corpuscular Hemoglobin Concent 2017-11-11 06:11:00* Test Item Value Reference Range Interpretation Comments Mean Corpuscular Hemoglobin Concent (test code = 786-4) 33.6 31-35 [facility] HospitalRed Cell Distribution Mvblj1471-12-06 06:11:00* Test Item Value Reference Range Interpretation Comments Red Cell Distribution Width (test code = 86973-9) 15.3 11.7 -14.4 H [facility] HospitalPlatelet Icyyn2144-69-67 06:11:00* Test Item Value Reference Range Interpretation Comments Platelet Count (test code = 777-3) 71 140-360 L [facility] HospitalNeutrophils (%) (Auto)2017-11-11 06:11:00 * Test Item Value Reference Range Interpretation Comments Neutrophils (%) (Auto) (test code = 70024-1) 64.0 38.7-80.0 [facility] HospitalLymphocytes (%) (Auto)2017-11-11 06:11:00 * Test Item Value Reference Range Interpretation Comments Lymphocytes (%) (Auto) (test code = 736-9) 24.8 18.0-39.1 [facility] HospitalMonocytes (%) (Auto)2017-11-11 06:11:00* Test Item Value Reference Range Interpretation Comments Monocytes (%) (Auto) (test code = 5905-5) 6.9 4.4-11.3 [facility] HospitalEosinophils (%) (Auto)2017-11-11 06:11:00 * Test Item Value Reference Range Interpretation Comments Eosinophils (%) (Auto) (test code = 713-8) 3.5 0.0-6.0 [facility] HospitalBasophils (%) (Auto)2017-11-11 06:11:00* Test Item Value Reference Range Interpretation Comments Basophils (%) (Auto) (test code = 706-2) 0.4 0.0-1.0 [facility] HospitalIM GRANULOCYTES %2017-11-11 06:11:00* Test Item Value Reference Range Interpretation Comments IM GRANULOCYTES % (test code = IM GRANULOCYTES %) 0.4 0.0- 1.0 [facility] HospitalNeutrophils # (Auto)2017-11-11 06:11:00* Test Item Value Reference Range Interpretation Comments Neutrophils # (Auto) (test code = 751-8) 3.1 2.1-6.9 [facility] HospitalLymphocytes # (Auto)2017-11-11 06:11:00* Test Item Value Reference Range Interpretation Comments Lymphocytes # (Auto) (test code = 57099-5) 1.2 1.0-3.2 [facility] HospitalMonocytes # (Auto)2017-11-11 06:11:00* Test Item Value Reference Range Interpretation Comments Monocytes # (Auto) (test code = 742-7) 0.3 0.2-0.8 [facility] HospitalEosinophils # (Auto)2017-11-11 06:11:00* Test Item Value Reference Range Interpretation Comments Eosinophils # (Auto) (test code = 711-2) 0.2 0.0-0.4 [facility] HospitalBasophils # (Auto)2017-11-11 06:11:00* Test Item Value Reference Range Interpretation Comments Basophils # (Auto) (test code = 704-7) 0.0 0.0-0.1 [facility] HospitalAbsolute Immature Granulocyte (auto 2017-11-11 06:11:00* Test Item Value Reference Range Interpretation Comments Absolute Immature Granulocyte (auto ([place] t code = Absolute Immature Granulocyte (auto) 0.02 0-0.1 [facility] HospitalBedside Uvadmkb7347-44-28 20:08:00* Test Item Value Reference Range Interpretation Comments Bedside Glucose (test code = 19078-7) 262 70-120 H Meter ID: [id number] General HospitalTotal Bilirubin 2017-11-10 11:59:00* Test Item Value Reference Range Interpretation Comments Total Bilirubin (test code = 1975-2) 2.5 0.2-1.2 H [facility] HospitalAspartate Amino Transf (AST/SGOT) 2017-11-10 11:59:00* Test Item Value Reference Range Interpretation Comments Aspartate Amino Transf (AST/SGOT) (test code = Aspartate Amino Transf (AST/SGOT)) 46 5-34 H [facility] HospitalAlanine Aminotransferase (ALT/SGPT) 2017-11-10 11:59:00* Test Item Value Reference Range Interpretation Comments Alanine Aminotransferase (ALT/SGPT) (test code = 1742-6) 28 0-55 [facility] HospitalTotal Yxbqbvi6461-92-43 11:59:00* Test Item Value Reference Range Interpretation Comments Total Protein (test code = 2885-2) 6.6 6.5-8.1 [facility] HospitalAlbumin2018-06-18 11:59:00* Test Item Value Reference Range Interpretation Comments Albumin (test code = 1751-7) 2.5 3.5-5.0 L [facility] HospitalGlobulin2018-06-18 11:59:00* Test Item Value Reference Range Interpretation Comments Globulin (test code = 19850-7) 4.1 2.3-3.5 H [facility] HospitalAlbumin/Globulin Rbvab9815-53-17 11:59:00 * Test Item Value Reference Range Interpretation Comments Albumin/Globulin Ratio (test code = 1759-0) 0.6 0.8-2.0 L [facility] HospitalAlkaline Ilqgpejivqp6018-44-21 11:59:00* Test Item Value Reference Range Interpretation Comments Alkaline Phosphatase (test code = 6768-6) 223 40-150 H [facility] HospitalCreatine Fvawsd7270-16-30 11:59:00* Test Item Value Reference Range Interpretation Comments Creatine Kinase (test code = 2157-6) 84 29-168 [facility] HospitalCreatine Kinase AX2547-63-51 11:59:00* Test Item Value Reference Range Interpretation Comments Creatine Kinase MB (test code = 09576-0) 1.70 0-5.0 [facility] HospitalTroponin C6986-26-80 11:59:00* Test Item Value Reference Range Interpretation Comments Troponin I (test code = DMF0049) 0.079 0-0.300 [facility] HospitalCreatine Qyusaw0525-66-14 11:59:00* Test Item Value Reference Range Interpretation Comments Creatine Kinase (test code = 2157-6) 84 29-168 [facility] HospitalCreatine Kinase VV8610-50-09 11:59:00* Test Item Value Reference Range Interpretation Comments Creatine Kinase MB (test code = 31252-5) 1.70 0-5.0 [facility] HospitalTroponin R6560-02-71 11:59:00* Test Item Value Reference Range Interpretation Comments Troponin I (test code = CBK1281) 0.079 0-0.300 [facility] HospitalCHEST SINGLE (PORTABLE)2017-11-10 11:47:00 [facility] [address] [address] Patient Name: DEBORAH AGUERO MR #: [id number] : 1955 Age/Sex: 62/F Req #: [id number] Adm Physician: Ordered by: JAIDEN VARNER MD Report #: [id number] Location: ER Room/Bed: Procedure: [id number] DX/CHEST SINGLE (PORTABLE) E xam Date: 11/10/17 Exam Time: 1110 REPORT STATU S: Signed PROCEDURE: A single AP view of the chest. COMPARISON: [facility], DX, CHEST SINGLE (PORTABLE), 01/10/2017, 12:33. GILL CATIONS: SHORTNESS OF BREATH FINDINGS: Lines/tubes: None. L ungs: The lungs are well inflated and clear. There is no evidence of pneumon ia or pulmonary edema. Pleura: There is no pleural effusion or pneumothor ax. Heart and mediastinum: The heart and the mediastinum are unremarkable . Bones: No acute bony abnormality. IMPRESSION: 1. No acute cardiopulmonary disease. Kapil Pike M.D. Dictated by: Kapil Pike M.D. on 11/10/2017 at 11:47 Electronically approved by: Kapil Pike M.D. on 11/10/2017 at 11:47 Dictated By: MARISA PIKE MD, MD [address]7 COPY TO: L[address], MD Urine EQK7577-22-30 11:45:00* Test Item Value Reference Range Interpretation Comments Urine WBC (test code = 5821-4) 0-5 0-5 [facility] HospitalUrine OZF3079-92-59 11:45:00* Test Item Value Reference Range Interpretation Comments Urine RBC (test code = 27945-8) NONE 0-5 [facility] HospitalUrine Mnryucmq6033-24-10 11:45:00* Test Item Value Reference Range Interpretation Comments Urine Bacteria (test code = 81257-9) RARE NONE [facility] HospitalUrine Epithelial Vadzw7218-73-34 11:45:00 * Test Item Value Reference Range Interpretation Comments Urine Epithelial Cells (test code = 57502-7) MODERATE NONE [facility] HospitalUrine Lwkaf3010-88-41 11:35:00* Test Item Value Reference Range Interpretation Comments Urine Color (test code = 5778-6) YELLOW YELLOW [facility] HospitalUrine Tfoptfe9940-40-73 11:35:00* Test Item Value Reference Range Interpretation Comments Urine Clarity (test code = 99928-0) CLEAR CLEAR [facility] HospitalUrine Specific Sceemzy8373-11-25 11:35:00 * Test Item Value Reference Range Interpretation Comments Urine Specific [place] (test code = 5811-5) 1.025 1.010-1.02 5 [facility] HospitalUrine uE2332-26-14 11:35:00* Test Item Value Reference Range Interpretation Comments Urine pH (test code = 51372-5) 6 5-7 [facility] HospitalUrine Leukocyte Ukiciqrp1050-40-30 11:35:00* Test Item Value Reference Range Interpretation Comments Urine Leukocyte Esterase (test code = 5799-2) NEGATIVE NEGATIVE [facility] HospitalUrine Pwhfqsi5711-63-87 11:35:00* Test Item Value Reference Range Interpretation Comments Urine Nitrite (test code = 43233-0) NEGATIVE NEGATIVE [facility] HospitalUrine Ownkvfs0686-49-78 11:35:00* Test Item Value Reference Range Interpretation Comments Urine Protein (test code = 5804-0) NEGATIVE NEGATIVE [facility] HospitalUrine Glucose (UA)2017-11-10 11:35:00* Test Item Value Reference Range Interpretation Comments Urine Glucose (UA) (test code = 2349-9) 2+ NEGATIVE H [facility] HospitalUrine Egndleu6713-00-07 11:35:00* Test Item Value Reference Range Interpretation Comments Urine Ketones (test code = 52677-7) NEGATIVE NEGATIVE [facility] HospitalUrine Zoqwzfszxjvv1433-25-79 11:35:00* Test Item Value Reference Range Interpretation Comments Urine Urobilinogen (test code = 18698-8) 0.2 0.2-1 [facility] HospitalUrine Ecnrtndms1692-48-55 11:35:00* Test Item Value Reference Range Interpretation Comments Urine Bilirubin (test code = 1978-6) NEGATIVE NEGATIVE [facility] HospitalUrine Uunqz5504-46-29 11:35:00* Test Item Value Reference Range Interpretation Comments Urine Blood (test code = 02059-6) TRACE NEGATIVE H [facility] HospitalALPHA FETOPROTEIN (AFP), TUMOR MARKER 2017-09-15 12:53:00* Test Item Value Reference Range Interpretation Comments ALPHA-FETOPROTEIN (BEAKER) (test code = 1094) 3.2 ng/mL <10.0 BASIC METABOLIC LCGCC8982-88-92 12:28:00* Test Item Value Reference Range Interpretation Comments SODIUM (BEAKER) (test code = 381) 137 meq/L 136-145 POTASSIUM (BEAKER) (test code = 379) 4.7 meq/L 3.5-5.1 CHLORIDE (BEAKER) (test code = 382) 107 meq/L 98-107 CO2 (BEAKER) (test code = 355) 24 meq/L 22-29 BLOOD UREA NITROGEN (BEAKER) (test code = 354) 10 mg/dL 7-21 CREATININE (BEAKER) (test code = 358) 1.41 mg/dL 0.57-1.25 H GLUCOSE RANDOM (BEAKER) (test code = 652) 368 mg/dL 70-105 H CALCIUM (BEAKER) (test code = 697) 9.8 mg/dL 8.4-10.2 EGFR (BEAKER) (test code = 1092) 38 mL/min/1.73 sq m ESTIMATED GFR IS NOT ACCURATE CREATININE CLEARANCE IN PREDICTING GLOMERULAR FILTRATION RATE. ESTIMATED GFR IS NOT APPLICABLE FOR DIALYSIS PATIENTS. Specimen slightly ictericHEPATIC FUNCTION JBPZD5693-67-15 12:28:00* Test Item Value Reference Range Interpretation Comments TOTAL PROTEIN (BEAKER) (test code = 770) 6.1 gm/dL 6.0-8.3 ALBUMIN (BEAKER) (test code = 1145) 2.7 g/dL 3.5-5.0 L BILIRUBIN TOTAL (BEAKER) (test code = 377) 1.8 mg/dL 0.2-1.2 H BILIRUBIN DIRECT (BEAKER) (test code = 706) 0.7 mg/dL 0.1-0.5 H ALKALINE PHOSPHATASE (BEAKER) (test code = 346) 248 U/L 40-150 H AST (SGOT) (BEAKER) (test code = 353) 25 U/L 5-34 ALT (SGPT) (BEAKER) (test code = 347) 20 U/L 6-55 Specimen slightly ictericPROTHROMBIN TIME/UHS3977-88-09 12:24:00* Test Item Value Reference Range Interpretation Comments PROTIME (BEAKER) (test code = 759) 18.9 seconds 11.7-14.7 H INR (BEAKER) (test code = 370) 1.6 <=5.9 RECOMMENDED COUMADIN/WARFARIN INR THERAPY RANGESSTANDARD DOSE: 2.0 - 3.0 Inclu keila: PROPHYLAXIS for venous thrombosis, systemic embolization; TREATMENT for ольга ous thrombosis and/or pulmonary embolus.HIGH RISK: Target INR is 2.5-3.5 for pat ients with mechanical heart valves.CBC W/PLT COUNT & AUTO VTNEBTQOUPVP7511-65-74 12:19:00* Test Item Value Reference Range Interpretation Comments WHITE BLOOD CELL COUNT (BEAKER) (test code = 775) 5.4 K/ L 3.5- 10.5 RED BLOOD CELL COUNT (BEAKER) (test code = 761) 3.59 M/ L 3.93-5 .22 L HEMOGLOBIN (BEAKER) (test code = 410) 11.9 GM/DL 11.2-15.7 HEMATOCRIT (BEAKER) (test code = 411) 36.4 % 34.1-44.9 MEAN CORPUSCULAR VOLUME (BEAKER) (test code = 753) 101.4 fL 79. 4-94.8 H MEAN CORPUSCULAR HEMOGLOBIN (BEAKER) (test code = 751) 33.1 pg 25.6-32.2 H MEAN CORPUSCULAR HEMOGLOBIN CONC (BEAKER) (test code = 752) 32.7 GM/DL 32.2-35.5 RED CELL DISTRIBUTION WIDTH (BEAKER) (test code = 412) 15.0 % 11.7-14.4 H PLATELET COUNT (BEAKER) (test code = 756) 73 K/CU MM 150-450 L MEAN PLATELET VOLUME (BEAKER) (test code = 754) 12.4 fL 9.4-12 .3 H NUCLEATED RED BLOOD CELLS (BEAKER) (test code = 413) 0 /100 WBC 0 -0 NEUTROPHILS RELATIVE PERCENT (BEAKER) (test code = 429) 42 % LYMPHOCYTES RELATIVE PERCENT (BEAKER) (test code = 430) 35 % MONOCYTES RELATIVE PERCENT (BEAKER) (test code = 431) 14 % EOSINOPHILS RELATIVE PERCENT (BEAKER) (test code = 432) 8 % BASOPHILS RELATIVE PERCENT (BEAKER) (test code = 437) 1 % NEUTROPHILS ABSOLUTE COUNT (BEAKER) (test code = 670) 2.27 K/ L 1.56-6.13 LYMPHOCYTES ABSOLUTE COUNT (BEAKER) (test code = 414) 1.89 K/ L 1.18-3.74 MONOCYTES ABSOLUTE COUNT (BEAKER) (test code = 415) 0.77 K/ L 0. 24-0.36 H EOSINOPHILS ABSOLUTE COUNT (BEAKER) (test code = 416) 0.42 K/ L 0.04-0.36 H BASOPHILS ABSOLUTE COUNT (BEAKER) (test code = 417) 0.03 K/ L 0. 01-0.08 IMMATURE GRANULOCYTES-RELATIVE PERCENT (BEAKER) (test code = 2801) 0 % 0-1 POCT-GLUCOSE [id number] 13:08:00* Test Item Value Reference Range Interpretation Comments POC-GLUCOSE METER (BEAKER) (test code = 1538) 111 mg/dL 70-110 H TESTED AT [address] [address] POCT-GLUCOSE HTJAZ7004-53-90 09:42:00* Test Item Value Reference Range Interpretation Comments POC-GLUCOSE METER (BEAKER) (test code = 1538) 128 mg/dL 70-110 H TESTED AT [address] [address] Blood Nehwtba6153-26-80 23:43:00* Test Item Value Reference Range Interpretation Comments Blood Culture (test code = 87371870) NO GROWTH AFTER 5 DAYS, [facility] Rcczvky0091-43-11 23:43:00* Test Item Value Reference Range Interpretation Comments Blood Culture (test code = 77967457) NO GROWTH AFTER 5 DAYS, [facility] Bofcwts8988-67-77 13:28:00* Test Item Value Reference Range Interpretation Comments Blood Culture (test code = 600-7) Organism: STAPHYLOCOCCUS SP COAG NEG [facility] Nahelvg3930-35-12 13:28:00* Test Item Value Reference Range Interpretation Comments Blood Culture (test code = 600-7) Organism: STAPHYLOCOCCUS SP COAG NEG [facility] Calcium Oxalate Aooewenx9412-35-84 23:55:00* Test Item Value Reference Range Interpretation Comments Urine Calcium Oxalate Crystals (test code = 5774-5) FEW FE W [facility] Total Cells Counted 2017-03-03 22:37:00* Test Item Value Reference Range Interpretation Comments Differential Total Cells Counted (test code = Differen tial Total Cells Counted) 100 [facility]ils % (Manual)2017-03-03 22:37:00 * Test Item Value Reference Range Interpretation Comments Neutrophils % (Manual) (test code = 28439-7) 44 40-74 [facility]Lymphocytes % (Manual)2017-03-03 22:37:00 * Test Item Value Reference Range Interpretation Comments Lymphocytes % (Manual) (test code = 737-7) 42 19-48 [facility] % ([facility]ual)2017-03-03 22:37:00* Test Item Value Reference Range Interpretation Comments Monocytes % (Manual) (test code = 744-3) 7 3.4-9.0 [facility] % (Manual)2017-03-03 22:37:00 * Test Item Value Reference Range Interpretation Comments Eosinophils % (Manual) (test code = 714-6) 6 0-7 [facility]Reactive Ulbxofrkbja3437-70-27 22:37:00* Test Item Value Reference Range Interpretation Comments Reactive Lymphocytes (test code = 32040-4) 1 [facility]Platelet Kiqvetwy1578-16-09 22:37:00* Test Item Value Reference Range Interpretation Comments Platelet Estimate (test code = 43610-7) SLIGHTLY DECREASED [facility] HospitalPlatelet Morphology Xcxinnw9577-06-60 22:37:00* Test Item Value Reference Range Interpretation Comments Platelet Morphology Comment (test code = 39405-4) NORMAL [facility] HospitalRed Cell Morphology Rlzcisq0661-94-41 22:37:00* Test Item Value Reference Range Interpretation Comments Red Cell Morphology Comment (test code = 6742-1) NORMAL [facility] HospitalDifferential Total Cells Counted 2017-03-03 22:37:00* Test Item Value Reference Range Interpretation Comments Differential Total Cells Counted (test code = Toribio tial Total Cells Counted) 100 [facility]Neutrophils % (Manual)2017-03-03 22:37:00 * Test Item Value Reference Range Interpretation Comments Neutrophils % (Manual) (test code = 30567-9) 44 40-74 [facility]Lymphocytes % (Manual)2017-03-03 22:37:00 * Test Item Value Reference Range Interpretation Comments Lymphocytes % (Manual) (test code = 737-7) 42 19-48 [facility] % (Manual)2017-03-03 22:37:00* Test Item Value Reference Range Interpretation Comments Monocytes % (Manual) (test code = 744-3) 7 3.4-9.0 [facility]osinophils % (Manual)2017-03-03 22:37:00 * Test Item Value Reference Range Interpretation Comments Eosinophils % (Manual) (test code = 714-6) 6 0-7 [facility]Re[facility] Siiuxtdajnw9221-21-49 22:37:00* Test Item Value Reference Range Interpretation Comments Reactive Lymphocytes (test code = 63771-5) 1 [facility] HospitalPlatelet Jscabfep7217-88-35 22:37:00* Test Item Value Reference Range Interpretation Comments Platelet Estimate (test code = 44956-0) SLIGHTLY DECREASED [facility] HospitalPlatelet Morphology Qtuvmmr4348-65-53 22:37:00* Test Item Value Reference Range Interpretation Comments Platelet Morphology Comment (test code = 82691-6) NORMAL [facility] HospitalRed Cell Morphology Kbevrxd8909-48-75 22:37:00* Test Item Value Reference Range Interpretation Comments Red Cell Morphology Comment (test code = 6742-1) NORMAL [facility] HospitalMagnesium Zmtpn5589-04-40 21:53:00* Test Item Value Reference Range Interpretation Comments Magnesium Level (test code = 78224-8) 1.5 1.3-2.1 [facility] Ldpxl8631-25-86 21:53:00* Test Item Value Reference Range Interpretation Comments Magnesium Level (test code = 04234-3) 1.5 1.3-2.1 [facility] HospitalAct[facility] Partial Thromboplast Time 2017-03-03 21:45:00* Test Item Value Reference Range Interpretation Comments Activated Partial Thromboplast Time (test code = 36547-8) 40.2 23.8-35.5 H [facility]Act[facility] Partial Thromboplast Time 2017-03-03 21:45:00* Test Item Value Reference Range Interpretation Comments Activated Partial Thromboplast Time (test code = 18191-6) 40.2 23.8-35.5 H [facility] [place] [address] Patient Name: DEBORAH AGUERO MR #: [id number] : 1955 Age/Sex: 61/F Req #: [id number] Adm Physician: Ordered by: FRANCES MCNEILL MD Report #: [id number] Location: ER Room/Bed: Procedure: [id number] CT/CT ABDOMEN/PELVIS WO Exam D ate: Exam Time: REPORT STATUS: Signed EXAM : CT ABDOMEN/PELVIS WO DATE: 03/03/2017 9:30 PM INDICATION: S H/O CIRRHOS IS, C/O SWELLING, ? MINIMAL ASCITES ON EXAM S Y COMPARISON: None TECHNIQU E: The abdomen and pelvis were scanned using a multidetector helical scanner. Coronal and sagittal reformations were obtained. Routine protocol performed. IV Contrast: None FINDINGS: Lack of IV contrast decreases sensitivity in evaluating abdominal and pelvic organs. LOWER THORAX: No consolidations. Coronary artery calcification. LIVER/BILIARY: Cirrhotic liver. Please note that the lack of IV contrast precludes evaluation for lesions in the setting of cirrhosis. GALLBLADDER: Cholecystectomy. SPLEEN: Not enlarged. PANCREA S: Unremarkable ADRENALS: No nodules KIDNEYS: Mild atrophy of the left ki dney. Nonobstructing 2 to 3 mm left interpolar renal calcification. No hydrone phrosis. GI TRACT: No distention, wall thickening or evidence of obstructio n. Normal appendix. VESSELS: Poorly assessed without IV contrast. Evidenc e of recanalized umbilical vein, splenorenal shunt with perisplenic varices. M ild to moderate atherosclerotic calcification. PERITONEUM/RETROPERITONEUM: N onspecific haziness of the small bowel mesentery. No ascites. LYMPH NODES: No lymphadenopathy REPRODUCTIVE ORGANS/BLADDER: Unremarkable SOFT TISS UES: Tiny fat-containing umbilical hernia. BONES: No suspicious bone lesions. IMPRESSION: 1. No acute abnormality on noncontrast evaluation. 2. Ci rrhotic liver with evidence of portal hypertension. 3. Nonspecific haziness/ed graham of the small bowel mesentery. No ascites. Signed by: Dr Ana Cristina Sheehan MD on 03/03/2017 10:58 PM Dictated By: ANA CRISTINA SHEEHAN MD Transcribed By: LIV on 03/03 1514 COPY TO: FRANCES MCNEILL MD CHEST [facility] (PORTABLE) [address] [place] [address] Patient Name: DEBORAH AGUERO MR #: [id number] : 0 1955 Age/Sex: 61/F Req #: [id number] Adm Physician: Ordered by: JAIDEN PAMLER MD Report #: [id number] Location: ER Room/Be d: Procedure: [id number] DX/CHEST SINGLE (PORTABLE) E xam Date: 01/10/17 Exam Time: 1235 REPORT STATU S: Signed PROCEDURE: A single AP view of the chest. COMPARISON: [facility], DX, CHEST SINGLE (PORTABLE), 12/02/2016, 21:04. GILL CATIONS: AMS, DIZZY TODAY FINDINGS: Lines/tubes: None. Lung s: The lungs are well inflated and clear. There is no evidence of pneumonia or pulmonary edema. Pleura: There is no pleural effusion or pneumothorax. Heart and mediastinum: The heart and the mediastinum are unremarkable. Bones: No acute bony abnormality. IMPRESSION: 1. No acute ca rdiopulmonary abnormalities. Mike Lozano M.D. Dictated by: Mike Lozano M.D. on 01/10/2017 at 13:26 Electronically approved by: Mike Lozano M.D. on 01/10/2017 at 13:26 Dictated By: MIKE LOZANO MD 1326 Transcribed By: JONATHAN on 01/10/17 1326 COPY TO: JAIDEN PALMER MD CT BRAIN WO [place] [address] Patient Name: DEBORAH AGUERO MR #: [id number] : 1955 Age/Sex: 61/F Req #: [id number] Adm Physician: Ordered by: JAIDEN PALMER MD Report #: [id number] Location: ER Room/Bed: Procedure: [id number] CT/CT BRAIN WO Exam Date: Exam Time: 1300 REPORT STATUS: Signed Exam: Head CT without contrast History: Headache, nausea Comparison studie s: Multiple prior head CTs dated 04/17/2014, most recent head CT of 12/02/2016 . Technique: Axial images were obtained from the skull base to the vertex . Coronal and sagittal images reconstructed from the axial data. Intravenous contrast: None Findings: Scalp: No abnormalities. Bones: No fractur es, blastic or lytic lesions. Brain sulci: Appropriate for age. Ventricle s: Normal in size and configuration. No hydrocephalus. Extra-axial spaces: No masses, no fluid collection. Parenchyma: No mass, acute hemorrhage or a cute or chronic cortical vascular insults. A chronic right striatocapsular lac unar infarct is unchanged. A few scattered hypodensities in the supratentorial white matter are nonspecific but are most compatible with chronic small vessel ischemic changes. Sellar/suprasellar region: No abnormalities. Cranioce rvical junction: Patent foramen magnum. No Chiari one malformation. Paranas al sinuses: Left sphenoid sinus and left posterior ethmoids remain opacified w ith internal hyperdensity which likely represents inspissated secretions or po tentially fungal etiology. Right frontal ethmoidal opacification is also uncha nged. Incidental findings: Atherosclerotic calcifications in the carotid siphons and left intradural vertebral artery. IMPRESSION: No acute intracranial abnormalities. No changes from the previous head CT of 12/02/2016. Persistent findings: 1. Mild microvascular ischemic changes. 2. Right striatocapsular lacunar infarct. 3. Inflammatory changes in the paranasal sinuses. Signed by: Dr. Harinder Barnes M.D. on 01/10/2017 1:21 PM Dic tated By: HARINDER BARNES MD 132 COPY TO: Moi PALMER MD
[2020-01-03 13:04] LABS: ALBUMIN 2.1 g/dL (3.5-5.0); ALBUMIN/GLOBULIN RATIO 0.5 (0.8-2.0); CALCIUM 8.5 mg/dL (8.4-10.2); CREATININE, SERUM 1.17 mg/dL (0.57-1.11); POTASSIUM 3.4 mmol/L (3.5-5.1)
[2020-01-03 13:05] LABS: ANION GAP 5.4 mmol/L (8-16)
--- NOTE | 2020-01-03 14:37 | Diagnostic Imaging Report ---
EXAM: CT Chest, Abdomen and Pelvis WITH intravenous contrast INDICATION: Shortness of breath, abdominal pain COMPARISON: None. TECHNIQUE: The chest, abdomen and pelvis were scanned utilizing a multidetector helical scanner from the thoracic inlet to the pubic symphysis following administration of IV contrast. Coronal and sagittal reformations were obtained. Scan was performed during portal venous phase. IV CONTRAST: 100cc Isovue 370 ORAL CONTRAST: Water COMPLICATIONS: None RADIATION DOSE: Total DLP: 945 mGy*cm Dose modulation, iterative reconstruction, and/or weight based adjustment of the mA/kV was utilized to reduce the radiation dose to as low as reasonably achievable. FINDINGS: LINES/ TUBES: None. LUNGS AND AIRWAYS: The central airways are patent. Dependent right lower lobe and to a lesser extent left lower lobe subsegmental atelectasis. No focal consolidation. No air space edema. PLEURA: Moderate right and small left pleural effusions. No pneumothorax. HEART AND MEDIASTINUM: The thyroid gland is not visualized. No supraclavicular, axillary, mediastinal, or hilar lymphadenopathy. The heart is not enlarged. No pericardial effusion. Mitral annular calcifications. Scattered atherosclerotic calcifications of the thoracic aorta. No central pulmonary embolism. HEPATOBILIARY: Diffuse hepatic steatosis and nodular liver surface contour. No biliary ductal dilation. Status post cholecystectomy. SPLEEN: No splenomegaly. PANCREAS: No focal masses or ductal dilatation. ADRENALS: No adrenal nodules. KIDNEYS/URETERS: No renal calculi, hydronephrosis, or solid renal mass lesion. PELVIC ORGANS/BLADDER: Unremarkable. PERITONEUM / RETROPERITONEUM: Trace ascites in the pelvis. No free air. LYMPH NODES: No lymphadenopathy. VESSELS: Sequela of portal hypertension with recanalization of the umbilical vein and a very large splenorenal shunt. Small left pelvic portosystemic varices. GI TRACT: Mild stomach and proximal duodenal wall thickening, possibly related to portal gastropathy. No bowel obstruction. BONES AND SOFT TISSUES: No acute osseous injury. No suspicious lytic or blastic lesions. IMPRESSION: Moderate right and small left pleural effusions. No focal pneumonia or pulmonary airspace edema. Hepatic cirrhosis and sequela of portal hypertension including recanalization of the umbilical vein and prominent portosystemic varices, most notably a large splenorenal shunt. Mild stomach and proximal duodenal wall thickening, possibly related to portal gastropathy. Signed by: Zohaib Haque MD on 01/03/2020 2:33 PM
[2020-01-03] MEDS ORDERED: SODIUM CHLORIDE 0.9% 50ML 50 ML ONE (14:59)
[2020-01-03] MEDS ORDERED: IOPAMIDOL 370 MG/ML 200 ML INFUS..BTL INJ ONE (15:00)
[2020-01-03] MEDS ORDERED: FUROSEMIDE INJ 10 MG/ML 2 ML VIAL IV ONE (15:15)
--- OUTSIDE RECORDS SUMMARY | 2020-01-03 15:37 | XMS REPORT | Clinical Summary ---
Author Author 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. Chronic hepatitis C without hepatic coma [...] She will meet with our trans plant software developer mid level. Encourage decreased oral intake and exercise as [...] Follow Up 09/27/2019 Telephone Hepatology Palma Arango box builder Follow Up 09/21/2019 Telephone Hepatology Pal[place] Arango box builder Follow Up 09/15/2019 Telephone Hepatology Palma Arango [...] RN Follow-up 07/28/2019 Telephone Hepatology Palma Arango stummel selector Follow Up 07/19/2019 Telephone Hepatology Palma Arango RN Follow-up (Follow Up Regarding Due for B loodwork) 07/19/2019 Telephone Hepatology Palma Arango, RN Follow-up 07/08/2019 Telephone Hepatology aPlma Arango RN 06/24/2019 Telephone Hepatology Fantasma Pina, [...] 04/26/2019 Telephone Hepatology Shakir Vega FNP Returning POWDERED METAL SUPERVISOR call of the day 04/26/2019 Telephone Hepatology [...] Taken Vital Sign Reading 04/14/2019 11:57 AM GARDENER Blood Pressure 131/93 04/14/2019 11:57 AM GARDENER Pulse 71 04/14/2019 11:57 AM GARDENER Temperature 35.8 C (96.4 F) 04/14/2019 11:57 AM GARDENER Respiratory Rate 18 04/14/2019 11:57 AM GARDENER Oxygen Saturation 96% - Inhaled Oxygen - Concentration 04/14/2019 11:57 AM GARDENER Weight 99.2 kg (218 lb 12.8 oz) 04/14/2019 11:57 AM GARDENER Height 160 cm (5' 3") 04/14/2019 11:57 AM GARDENER Body Mass Index 38.76 Plan of Treatment Care Team Description Date Type Specialty Ulices Robert MD [address] [facility] [address] [place], [place] [id number] 01/20/2020 Office Visit Hepatology Health Maintenance Due [...] ID Type Phone Address Plan / Group [facility] MEDICARE ADV [phone] Advance Directives For more information, please contact: [facility] [address] [place] [address] Date Inactivated Comments Code Status Date Activated 09/04/2018 4:14 PM Full Code 09/04/2018 5:29 AM This code status was determined by: Patient 04/05/2017 12:48 AM Full Code 04/04/2017 8:15 AM This code status was determined by: Patient
--- OUTSIDE RECORDS SUMMARY | 2020-01-03 15:37 | XMS REPORT | Clinical Summary ---
Author Author [facility] Organization [facility] ict Address Unknown Phone Unavailable Care Team Providers Care Director Loan Name Role Phone PCP Unavailable Allergies Comments [...] lactulose (CONSTULOSE) 10 Take 30 [place] 29918 mL 3 gram/15 mL oral mouth 2 [...] / Dates Group MEDICARE MEDICARE xxxxxxxxxx 2015-P [phone] [id number] [place] [address] Advance Directives Date Inactivated Comments Code Status Date Activated 03/30/2015 6:20 PM Full Code 03/28/2015 12:55 AM 02/10/2015 6:05 PM Full Code 02/08/2015 8:43 PM
--- OUTSIDE RECORDS SUMMARY | 2020-01-03 15:39 | XMS REPORT | Continuity of Care Document ---
Author Author [facility] t Organization [facility] Address [address] [place] [address] Phone Unavailable Care Team Providers Care Floriculture Teacher Name Role Phone NONSTAFF PCP Unavailable Misty Aguilar Attphys Unavailable Tara SMITH, Peace Smart Attphys Silvana LEAD HOUSEKEEPER, Goodell Fantasma Attphys Zunilda Grider Attphys Unavailable Conchita MAGANA, Zafar Waldrop Attphys Unavailable Gricelda Vargas MA Attphys Unavailable Sapna MENDOZA, Walter Colvin Attphys Unavailable Andrea RYAN Attphys Unavailable Leigha Carrera MA, [place] Attphys Unavailable Harvey OLIVAS, Neris Cuellar Attphys [phone] Yovana Macias Attphys Wanda Robert MD Attphys SUNDAR BURNETTE Attphys Unavailable DEMETRIUS STOKES Attphys Unavailable Maya RUDD Attphys Unavailable NERIS PLASCENCIA Attphys Unavailable Kristni VARNER Attphys Unavailable Andrea MCNEILL Attphys Unavailable JAIDEN PALMER Attphys Unavailable Andrea RYAN Admphys Unavailable SUNDAR BURNETTE Admphys Unavailable Payers Payer Name Policy Type Policy Number Effective Date Expiration Date Shakir nallely [employer]AREK[employer] MEDICARE ADVxxxxxxxxxxx xxxxxxxxxxx [facility] Kelsey [employer] Medicare Advantage NA 2016 00:00 :00 [facility] Problems Condition Name Condition Details Condition Category Status Onset Date Resolution Date Last Treatment Date Treating Clinician Comments Source Pre-transplant evaluation for liver transplant Pre-tra nsplant evaluation for liver transplant Disease Active 2018-04-30 00:00:00 Last Assessment & Plan: She is an acceptable candidate for liver transplant pending further imaging/testing and official review at [facility]. [facility] Chronic hepatitis C without hepatic coma Chronic hepat itis C without hepatic coma Disease Active 2017-10-27 00:00:00 [facility] Cirrhosis of liver with ascites, unspecified hepatic c irrhosis type Cirrhosis of liver with ascites, unspecified hepatic cirrhosis type Disease Activ e 2017-10-27 00:00:00 Last Assessment & Plan: Cirr hosis secondary to Hep C. [facility] Preoperative cardiovascular examination Preoperative cardiov ascular examination Disease Active 2017-04-04 00:00:00 [facility] Ascites Ascites Disease Active 2016-07-25 00:00:00 Overview: Controlled with spironolactone 100 mg daily. 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 Being referred to GI for repeat EGD for surveillance [facility] Morbidly obese Morbidly obese Disease Active 2016-07-25 00:00:00 Last Assessment & Plan: BMI is 44. She will meet with our transplant tools administrator. Encourage decreased oral intake and exercise as tolerated. [facility] Cirrhosis Cirrhosis Disease Active 2016-06-17 00:00:00 Last Assessment & Plan: Meld 17 with portal HTN and ascites, candidate for liver transplant listing [facility] Portal hypertension Portal hypertension Disease Active 2016-06-17 00:00 :00 Last Assessment & Plan: Portal hypertens ion with evidence by encephalopathy, varices, and ascites. 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, with long-term current use of insulin Disease Active 2016-02-22 00:00:00 [facility] Type 2 diabetes mellitus without complic ation, without long-term current use of insulin Type 2 diabetes mellitus without complic ation, without long-term current use of insulin Disease Active 2015-12-27 00:00:00 [facility] Hepatic cirrhosis Cirrhosis Problem Active 2015-12-06 00:00:00 [facility] Diabetes mellitus Diabetes Problem Active 2015-12-06 00:00:00 [facility] Sinusitis Sinusitis Problem Active 2015-12-06 00:00:00 [facility] Weakness Weakness Problem Active 2015-12-06 00:00:00 [facility] Portal hypertension with esophageal and gastric varice s Portal hypertension with esophageal and gastric varices Disease Active 2015-10-11 00:00:00 [facility] Partial portal vein thrombosis (no A/C given history o f ICH) Partial portal vein thrombosis (no A/C given history of ICH) Disease Active 2015-10-11 00:00: 00 [facility] Left shoulder pain Left shoulder pain Disease Active 2015-09-18 00:00:0 0 [facility] Impaired mobility and activities of daily living Impai red mobility and activities of daily living Disease Active 2015-03-30 00:00:00 [facility] Thrombocytopenia due to hypersplenism Thrombocytopenia due t o hypersplenism Disease Active 2015-03-28 00:00:00 [facility] Hypothyroidism Hypothyroidism Disease Active 2015-03-28 00:00:00 [facility] Iatrogenic hyperthyroidism Iatrogenic hyperthyroidism Disease Active 2015-03-28 00:00:00 [facility] HTN (hypertension), benign HTN (hypertension), benign Disease Active 2015-03-27 00:00:00 [facility] Left-sided weakness Left-sided weakness Disease Active 2015-02-08 00:00 :00 [facility] Intraparenchymal hematoma of brain Intraparenchymal hematoma of brain Disease Active 2015-02-08 00:00:[address] [facility] Diabetes Diabetes Disease Active 2014-04-28 00:00:00 [facility] Hepatic encephalopathy Hepatic encephalopathy syndrome Problem Active 2014-04-18 00:00:00 [facility] Chronic hepatitis C with cirrhosis Cirrhosis, hepatitis C Problem Active 2014-04-18 00:00:00 [facility] SOB (shortness of breath) SOB (shortness of breath) Disease Ac tive 2013-12-08 00:00:00 [facility] MDD (major depressive disorder) MDD (major depressive disorder) Dis ease Active 2013-11-23 00:00:00 [facility] Chronic hepatitis C with cirrhosis (hepa tic sequalae thrombocytopenia 2/2 splenic sequestration w/ splenomegaly, partial portal vein occlusion, portal hypertension w/ varices, macrocytosis) Chronic hepatitis C with cirrhosis (hepatic sequalae thrombocytopenia 2/2 splenic sequestration w/ splenomegaly, partial portal vein occlusion, portal hypertension w/ varices, macrocytosis) Disease Active 2013-09-08 00:00:00 [facility] Splenomegaly Splenomegaly Disease Active 2012-09-23 00:00:00 Overview: Ct abd - spleen 13.7cm [facility] Altered mental status Change in mental status Problem Active [facility] Coagulation disorder Coagulopathy Problem Active [facility] Dehydration Dehydration Problem Active [facility] Hepatitis C virus infection Hepatitis C Problem Active [facility] Spontaneous bacterial peritonitis SBP (spontaneous bacterial peritonitis) Problem Active [facility] Cough Cough Problem Active [facility] Sepsis Problem Active [facility] Abdominal pain Problem Active [facility] Pleural effusion Problem Active [facility] HLD (hyperlipidemia) HLD (hyperlipidemia) Disease Active [facility] Obesity Obesity Disease Active [facility] ZION positive ZION positive Disease Active [facility] UTI (urinary tract infection) UTI (urinary tract infection) Disease Active [facility] Stroke Stroke Disease Active [facility] Asthma Asthma Disease Active [facility] Hepatic encephalopathy Hepatic encephalopathy Disease Active [facility] Encephalomalacia on imaging study Encephalomalacia on imaging st ud Disease Active [facility] ICH (intracerebral hemorrhage) ICH (intracerebral hemorrhage) Disease Active [facility] Gastric ulcer Gastric ulcer Disease Active [facility] Vitamin D deficiency Vitamin D deficiency Disease Active [facility] Allergies, Adverse Reactions, Alerts This patient has no known allergies or adverse reactions. Family History Family Member Diagnosis Comments Start Date Stop Date Source Natural father [facility] [place] [facility] Natural father Hypertension [facility] Natural mother Arthritis [facility] Natural mother Cancer [facility] Natural mother Diabetes [facility] Natural mother Hypertension [facility] Natural sister Asthma [facility] Social History Social Habit Start Date Stop Date Quantity Comments Source Sex Assigned [facility] Alcohol intake 2015-12-27 00:00:00 2015-12-27 00:00:00 Current non-drinker of alcohol (finding) [facility] Smoking Status Start Date Stop Date Source Former smoker 2015-12-27 00:00:00 2015-12-27 00:00:00 [facility] Medications Ordered Medication Name Filled Medication Name Start Date Stop Da te Current Medication? Ordering Clinician Indication Dosage Frequency Signature (SIG) Comments Components Source rifAXIMin 550 mg Tab 2019-12-10 14:03:35 2019-12-10 00:00:00 No 550mg Q.5D Take 550 mg by mouth 2 (two) times daily. [facility] rifAXIMin (XIFAXAN) 550 mg Tab 2019-12-10 00:00:00 Yes Hepatic encephalopathy (HCC) 550mg Q.5D Take 1 tablet (550 mg total) by mouth 2 (two) times daily. [facility] ursodioL (ACTIGALL) 300 mg capsule 2019-10-20 00:00:00 2020-10-19 23:59:00 Yes Cirrhosis of liver with ascites, unspeci fied hepatic cirrhosis type (HCC) 600mg Q.5D Take 2 capsules (600 mg total) by mouth 2 (two) times daily. [facility] Albuterol Sulfate (Proventil Hfa) 6.7 Gm HFA.AER.AD Al buterol Sulfate (Proventil Hfa) 6.7 Gm HFA.AER.AD 2019-07-14 14:51:00 Yes 6.7 As Needed for Shortness Of Breath [facility] ursodiol (ACTIGALL) 300 mg capsule 2019-06-24 00:00:00 202 00:00:00 No Cirrhosis of liver with ascites, unspecified hepatic c irrhosis type (HCC) 600mg Q.5D Take 2 capsules (600 mg total) by mouth 2 (two) times daily. [facility] insulin glargine (LANTUS) 100 unit/mL injection 2018-09-04 07:06 :57 Yes 60U Q.5D Inject 60 Units subcutaneously 2 (two) times abhishek ly Use as directed . [facility] insulin aspart U-100 (NOVOLOG) 100 unit/mL injection 2 07:06:57 Yes 10U Q.5D Inject 10 Units subcutaneously 2 (two) t imes daily. [facility] furosemide (LASIX) 40 MG tablet 2018-09-04 05:57:40 Yes 40mg QD Take 40 mg by mouth daily. [facility] propranolol (INDERAL) 10 MG tablet 2018-09-04 05:57:39 Yes 10mg Q.5D Take 10 mg by mouth 2 (two) times daily. [facility] ALBUTEROL SULFATE (PROVENTIL HFA INHL) 2017-04-04 08:39:05 Yes 2{puff} Inhale 2 puffs by mouth via inhaler 2 (two) times daily as neede d. [facility] omeprazole (PRILOSEC) 40 MG capsule 2017-04-04 08:39:05 Yes 40mg QD Take 40 mg by mouth daily. [facility] polyethylene glycol (GLYCOLAX) 17 gram packet 2017-04-04 08:39:0 5 Yes 17g QD Take 17 g by mouth daily. [facility] Amoxicillin/Potassium Clav (Amox Tr-K Clv 875-125 Mg T ab) 1 Each TABLET Amoxicillin/Potassium Clav (Amox Tr-K Clv 875-125 Mg Tab) 1 Each TABLET 2016-06-24 18:30:00 2016-12-02 00:00:00 No 875 Every 12 Hours [facility] lactulose (CHRONULAC) 10 gram/15 mL solution 2016-06-17 00:00:00 Yes 20g [id number] Take 20 g by mouth 3 (three) times daily . [facility] levothyroxine (SYNTHROID, LEVOTHROID) 125 MCG tablet 2 00:00:00 Yes 125ug Take 125 mcg by mouth. [facility] spironolactone (ALDACTONE) 100 MG tablet 2016-04-23 00:00:00 Yes 100mg QD Take 100 mg by mouth daily . [facility] levothyroxine (SYNTHROID) 112 mcg tablet 2016-01-16 00:00:00 Yes Other specified hypothyroidism 112ug QD Take 1 tablet by mouth daily. [facility] polyethylene glycol (GLYCOLAX) 17 gram/dose oral powder 2016-01-10 00:00:00 Yes Other constipation Mix 17 gr ams into 4 to 8 ounces of water, juice, soda, tea or coffee and drink as directed, one time a day. [facility] polyethylene glycol (MIRALAX) 17 gram/dose oral powder 2015-12-29 00:00:00 Yes Slow transit constipation Mi x 17 grams into 4 to 8 ounces of water, juice, soda, tea or coffee and drink as directed, one time a day. [facility] calcitriol (ROCALTROL) 0.25 mcg capsule 2015-12-27 00:00:00 Yes Vitamin D deficiency .25ug QD Take 1 capsule by mouth daily. [facility] lactulose (CONSTULOSE) 10 gram/15 mL oral solution 2015-11 00:00:00 Yes Hepatic cirrhosis due to chronic hepatitis C infection 20g Q.5D Take 30 mL by mouth 2 times daily for 90 days. [facility] albuterol (PROVENTIL) 2.5 mg /3 mL (0.083 %) nebulizer solut ion 2015-12-18 00:00:00 Yes Medication refill 2.5mg In goff 3 mL by mouth every 6 hours as needed for Wheezing or Shortness of Breath (Patient has nebulizer machine at home). [facility] dexlansoprazole (DEXILANT) 30 mg delayed release capsule 2015-11-19 00:00:00 Yes GERD (gastroesophageal reflux disease) 30mg QD Take 1 capsule by mouth daily [facility] cetirizine (ZYRTEC) 10 mg tablet 2015-10-05 00:00:00 Yes Medication refill 10mg QD Take 1 tablet by mouth daily. [facility] predniSONE (DELTASONE) 20 mg tablet 2015-10-05 00:00:00 Yes Medication refill 60mg QD Take 3 tablets by mouth daily. [facility] codeine-guaiFENesin (CHERATUSSIN AC) 10-100 mg/5 mL syrup 2015-10-05 00:00:00 Yes Medication refill 5mL Take 5 mL by mouth 3 times daily as needed for Cough. [facility] ofloxacin (OCUFLOX) 0.3 % ophthalmic solution 2015-10-05 00: 00:00 Yes Bilateral acute serous otitis media, recurrence not specified Instill 5 drops to each ear daily for 10 days. Ok for pharmacist to 0.3% ofloxacin eye solution for ear treatment.. [facility] furosemide (LASIX) 20 mg tablet 2015-09-06 00:00:00 Yes Hepatic cirrhosis, unspecified hepatic cirrhosis type 20mg Q.5D Take 1 tablet by mouth 2 times daily. [facility] spironolactone (ALDACTONE) 100 mg tablet 2015-09-06 00:00:00 Yes Hepatic cirrhosis, unspecified hepatic cirrhosis type 100mg QD Take 1 tablet by mouth daily [facility] propranolol (INDERAL) 10 mg tablet 2015-09-06 00:00:00 Yes Essential hypertension with goal blood pressure less than 140/90 10mg Q.5D Take 1 tablet by mouth 2 times daily. [facility] atorvastatin (LIPITOR) 10 mg tablet 2015-09-06 00:00:00 Yes Cerebrovascular accident (CVA) due to other mechanism 10mg Take 1 tablet by mouth at bedtime nightly. [facility] albuterol (VENTOLIN HFA,PROVENTIL HFA,PROAIR HFA) 90 mcg/act uation inhaler 2015-09-06 00:00:00 Yes Acute bronchitis, unspecified organism 2{puff} Inhale 2 Puffs by mouth 4 times daily as needed for Wheezing. [facility] lactulose (CHRONULAC) 10 gram/15 mL oral solution 2015-05-31 00:00:00 Yes Medication refill 30g Take 45 mL by mouth 3 times daily for 90 days. [facility] hydrocortisone 2.5 % topical cream 2014-05-31 00:00:00 Yes Rash and other nonspecific skin eruption Q.5D Apply to affected area 2 times d aily. [facility] sertraline (ZOLOFT) 50 mg tablet 2014-03-30 00:00:00 Yes MDD (major depressive disorder) Take 1/2 tab by tk th daily for 1 week; then increase to 1 full tab daily for depression. [facility] Benzonatate Benzonatate Yes 100 Three Times A Da y [facility] Furosemide (Lasix) 40 Mg TABLET Furosemide (Lasix) 40 Mg TABLET Yes 40 Daily [facility] Insulin Glargine (Lantus 3ML Pen) 100 Units/1 Ml INJ I nsulin Glargine (Lantus 3ML Pen) 100 Units/1 Ml INJ Yes 70 Bedtime [facility] Lactulose Lactulose Yes 20 Three Times A Day [facility] Levothyroxine Sodium (Synthroid) 125 Mcg TAB Levothyro xine Sodium (Synthroid) 125 Mcg TAB Yes 125 Daily [facility] Magnesium Oxide Magnesium Oxide Yes 400 Daily [facility] Omeprazole Omeprazole Yes Daily [facility] Propranolol Hcl Propranolol Hcl Yes 10 Twice A Day [facility] Rifaximin (Xifaxan) 550 Mg TABLET Rifaximin (Xifaxan) 550 Mg TABLET Yes 1 Twice A Day [facility] Spironolactone Spironolactone Yes 100 Daily [facility] Ursodiol (Actigall) 300 Mg CAPSULE Ursodiol (Actigall) 300 Mg CAPSULE Yes 2 Twice A Day [facility] Zinc Sulfate Zinc Sulfate Yes 220 Daily [facility] Albuterol Sulfate (Proventil Hfa) 6.7 Gm HFA.AER.AD Al buterol Sulfate (Proventil Hfa) 6.7 Gm HFA.AER.AD 2019-07-14 00:00:00 No As Needed for Shortness Of Breath [facility] Albuterol Sulfate (Ventolin Hfa) 18 Gm HFA.AER.AD Albu terol Sulfate (Ventolin Hfa) 18 Gm HFA.AER.AD 2019-07-13 00:00:00 No Ev seth 4 Hours [facility] Cholecalciferol (Vitamin D3) (Vitamin D) 1,000 Unit TA BLET Cholecalciferol (Vitamin D3) (Vitamin D) 1,000 Unit TABLET 2019-07-13 00:00:00 No 5000 Weekly [facility] Insulin Aspart (Novolog) 100 Unit/1 Ml CARTRIDGE Insul in Aspart (Novolog) 100 Unit/1 Ml CARTRIDGE 2019-07-13 00:00:00 No 6 Befo re Meals [facility] Xifaxan Xifaxan 2019-07-13 00:00:00 No 550 Twice A D ay [facility] Metformin Hcl Metformin Hcl 2017-11-29 00:00:00 No 500 Twice A Day [facility] Polyethylene Glycol 3350 Polyethylene Glycol 3350 2017-11-29 00: 00:00 No 17 As Needed as needed for Constipation [facility] Spironolactone (Aldactone) 100 Mg TABLET Spironolacton e (Aldactone) 100 Mg TABLET 2017-11-29 00:00:00 No 100 Daily [facility] Glimepiride Glimepiride 2017-11-11 00:00:00 No 4 D aily [facility] Dexlansoprazole (Dexilant) 30 Mg CAP. Dexlansopra zole (Dexilant) 30 Mg CAP. 2017-01-11 00:00:00 No 30 Daily [facility] Propranolol Hcl Propranolol Hcl 2016-06-28 00:00:00 No 10 Daily [facility] Albuterol Sulfate (Proventil Hfa) 6.7 Gm HFA.AER.AD Al buterol Sulfate (Proventil Hfa) 6.7 Gm HFA.AER.AD 2016-06-18 00:00:00 No 1 Every 4 Hours as needed for Shortness Of Breath [facility] Amlodipine Besylate Amlodipine Besylate 2016-06-18 00:00:00 No 10 Daily At 1500 [facility] Fluticasone Propionate (Flonase) 16 Gm SPRAY.SUSP Flut icasone Propionate (Flonase) 16 Gm SPRAY.SUSP 2016-06-18 00:00:00 No 1 Twice A Day [facility] Hydrocodone Bit/Acetaminophen (Denver 5-325 Tablet) 1 E ach TABLET Hydrocodone Bit/Acetaminophen ([place] 5-325 Tablet) 1 Each TABLET 2016-06-18 00: 00:00 No 1 Every 8 Hours as needed for Pain [facility] Insulin Detemir (Levemir 3ML Flexpen*) 100 Units/Ml IN J Insulin Detemir (Levemir 3ML Flexpen*) 100 Units/Ml INJ 2016-06-18 00:00:00 No [facility] Lactulose Lactulose 2016-06-18 00:00:00 No 2 Twice A Day [facility] Levothyroxine Sodium Levothyroxine Sodium 2016-06-18 00:00:00 No 137 Daily At 1500 [facility] Omeprazole Omeprazole 2016-06-18 00:00:00 No 40 Abhishek ly Prn [facility] Polyethylene Glycol 3350 Polyethylene Glycol 3350 2016-06-18 00: 00:00 No 17 Daily [facility] Rifaximin (Xifaxan) 550 Mg TABLET Rifaximin (Xifaxan) 550 Mg TAB LET 2016-06-18 00:00:00 No 1 Twice A Day [facility] Sertraline Hcl Sertraline Hcl 2016-06-18 00:00:00 No 50 Daily [facility] Spironolactone Spironolactone 2016-06-18 00:00:00 No [address] [facility] Immunizations Ordered Immunization Name Filled Immunization Name Date Status Comments Source Pneumococcal 7-valent conj 0.5 mL injection 2014-02-07 00: 00:00 [facility] PNEUMOCOCCAL 23-VALPS VACCINE 25 MCG/0.5 ML INJECTION 2014-02-07 00:00:00 [facility] Vital Signs Vital Name Observation Time Observation Value Comments Source Body Temperature 2019-09-28 11:52:00 98.4 [degF] [facility] BMI (Body Mass Index) 2019-09-25 17:12:00 41.3 kg/m2 [facility] Weight 2019-09-25 09:41:00 226 [lb_av] [facility] Systolic blood pressure 2019-04-14 11:57:00 131 mm[Hg] [facility] Diastolic blood pressure 2019-04-14 11:57:00 93 mm[Hg] [facility] Heart rate 2019-04-14 11:57:00 71 /min [facility] Body temperature 2019-04-14 11:57:00 35.78 Janet [facility] Respiratory rate 2019-04-14 11:57:00 18 /min [facility] Body height 2019-04-14 11:57:00 160 cm [facility] Body weight Measured 2019-04-14 11:57:00 99.247 kg [facility] BMI 2019-04-14 11:57:00 38.76 kg/m2 [facility] Oxygen saturation in Arterial blood by Pulse oximetry 2018-05 11:57:00 96 [facility] Procedure Date / Time Performed Performing Clinician [facility] e US Abdomen limited 2019-09-27 00:00:00 [facility] Computed tomography of abdomen and pelvis with contrast 00:00:00 [facility] Computed tomography of chest with contrast 2019-09-25 00:00:00 [facility] Computed tomography of abdomen and pelvis with contrast 00:00:00 [facility] CT of abdomen and pelvis without contrast 2019-09-20 00:00:00 [facility] US Abdomen limited 2019-07-21 00:00:00 MARKO HOLLINS [facility] Computed tomography of abdomen and pelvis with contrast 2019 00:00:00 ANSON TELLES [facility] X-ray of chest, two views 2019-07-13 00:00:00 ANSON TELLES CH I [facility] Computed tomography of chest with contrast 2019-07-13 00:00:00 NIKOS BAÑUELOS [facility] US abdomen complete 2019-07-13 00:00:00 MARKO HOLLINS [facility] Plan of Care Planned Activity Planned Date Details Comments Source Future Scheduled Test 2027-04-01 00:00:00 Screening for iris gnant neoplasm of colon (procedure) [code = 853757191] [facility] Future Scheduled Test 2022-08-11 00:00:00 PNEUMOCOCCAL 65+ H IGH/HIGHEST RISK (2 of 2 - PPSV23) [code = PNEUMOCOCCAL 65+ HIGH/HIGHEST RISK (2 of 2 - PPSV23)] [facility] Future Scheduled Test 2020-06-23 00:00:00 Screening for iris gnant neoplasm of breast (procedure) [code = 611109768] [facility] Future Scheduled Test 2020-01-25 00:00:00 INFLUENZA VACCINE (#1) [code = INFLUENZA VACCINE (#1)] [facility] Scheduled Test 2017-02-24 00:00:00 MEDICARE ANNUAL WE LLNESS (YEAR 2 or FIRST YEAR if no IPPE) [code = MEDICARE ANNUAL WELLNESS (YEAR 2 or FIRST YEAR if no IPPE)] [facility] Scheduled Test 2017-02-13 00:00:00 DM Retinal Exam (Y early) [code = DM Retinal Exam (Yearly)] [facility] Scheduled Test 2016-07-06 00:00:00 Hemoglobin A1c patricia surement (procedure) [code = 89207607] [facility] Scheduled Test 2016-05-22 00:00:00 Urine screening fo r protein (procedure) [code = 341471678] [facility] Scheduled Test 2003-08-18 00:00:00 Screening for iris gnant neoplasm of colon (procedure) [code = 608016733] [facility] Scheduled Test 1993 00:00:00 Breast Cancer Scrn (Yearly) [code = Breast Cancer Scrn (Yearly)] [facility] Scheduled Test 1971-08-18 00:00:00 DM Foot Exam (Year ly) [code = DM Foot Exam (Yearly)] [facility] Instructions Ascites [facility] Instructions Pleural Effusion [facility] Encounters Start Date/Time End Date/Time Encounter Type Ad[facility] Encounter ID Source 2019-09-25 15:34:00 2019-09-28 14:32:00 Discharged Inpatient 1 [facility] [id number] [facility] 2019-09-21 00:20:00 2019-09-23 16:52:00 Discharged Inpatient 1 [facility] [id number] [facility] 2019-07-19 17:44:00 2019-07-21 12:46:00 Discharged Inpatient 1 [facility] [id number] [facility] 2019-07-13 13:53:00 2019-07-14 16:25:00 Discharged Inpatient (obs) 1 RYAN [facility] [id number] [facility] 2018-07-10 11:21:00 2018-07-10 17:27:00 Departed Emergency Room 1 KENDALL RUDD [facility] [id number] [facility] 2017-11-29 05:44:00 2017-12-01 12:56:00 Discharged Inpatient 1 [facility] [id number] [facility] 2017-11-10 14:15:00 2017-11-11 13:30:00 Discharged Inpatient (obs) 1 TELLY JAIDEN [facility] [id number] [facility] 2017-03-03 17:08:00 2017-03-04 00:35:00 Departed Emergency Room ER FRANCES MCNEILL [facility] [id number] [facility] Results Test Description Test Time Test Comments Results Result Comments Source CT CHEST W 2020-01-03 14:22:00 [facility] [address] [address] Patient Name: DEBORAH AGUERO MR #: [id number] : 1955 Age/Sex: 64/F Req #: [id number] Adm Physician: Ordered by: Kedar Aguilar MD Report #: [id number] Location: ER Room/Bed: Procedure: [id number] CT/CT CHEST W Exam Date: 01/03/20 Exam Time: 1330 REPORT STATUS: Signed EXAM: CT Chest, Abdomen and Pelvis WITH intravenous contrast INDICATION: Shortness of breath, abdominal pain COMPARISON: None. TECHNIQUE: The chest, abdomen and pelvis were scanned utilizing a multidetector helical scanner from the thoracic inlet to the pubic symphysis following administration of IV contrast. Coronal and sagittal reformations were obtained. Scan was performed during portal venous phase. IV CONTRAST: 100cc Isovue 370 ORAL CONTRAST: Water COMPLICATIONS: None RADIATION DOSE: Total DLP: 945 mGy*cm Dose modulation, iterative reconstruction, and/or weight based adjustment of the mA/kV was utilized to reduce the radiation dose to as low as reasonably achievable. FINDINGS: LINES/ TUBES: None. LUNGS AND AIRWAYS: The central airways are patent. Dependent right lower lobe and to a lesser extent left lower lobe subsegmental atelectasis. No focal consolidation. No air space edema. PLEURA: Moderate right and small left pleural effusions. No pneumothorax. HEART AND MEDIASTINUM: The thyroid gland is not visualized. No supraclavicular, axillary, mediastinal, or hilar lymphadenopathy. The heart is not enlarged. No pericardial effusion. Mitral annular calcifications. Scattered atherosclerotic calcifications of the thoracic aorta. No central pulmonary embolism. HEPATOBILIARY: Diffuse hepatic steatosis and nodular liver surface contour. No biliary ductal dilation. Status post cholecystectomy. SPLEEN: No splenomegaly. PANCREAS: No focal masses or ductal dilatation. ADRENALS: No adrenal nodules. KIDNEYS/URETERS: No renal calculi, hydronephrosis, or solid renal mass lesion. PELVIC ORGANS/BLADDER: Unremarkable. PERITONEUM / RETROPERITONEUM: Trace ascites in the pelvis. No free air. LYMPH NODES: No lymphadenopathy. VESSELS: Sequel a of portal hypertension with recanalization of the umbilical vein and a very large splenorenal shunt. Small left pelvic portosystemic varices. GI TRACT: Mild stomach and proximal duodenal wall thickening, possibly related to portal gastropathy. No bowel obstruction. BONES AND SOFT TISSUES: No acute osseous injury. No suspicious lytic or blastic lesions. IMPRESSION: Moderate right and small left pleural effusions. No focal pneumonia or pulmonary airspace edema. Hepatic cirrhosis and sequela of portal hypertension including recanalization of the umbilical vein and prominent portosystemic varices, most notably a large splenorenal shunt. Mild stomach and proximal duodenal wall thickening, possibly related to portal gastropathy. Signed by: Jessica Ramirez MD on 01/03/2020 2:33 PM Dictated By: JESSICA RAMIREZ MD 1433 Transcribed By: LIV on 01/03/20 1433 COPY TO: KEDAR AGUILAR MD CT ABDOMEN/PELVIS W 2020-01-03 14:22:[address] [address] Patient Name: DEBORAH AGUERO MR #: [id number] : 1955 Age/Sex: 64/F Req #: [id number] Adm Physician: Ordered by: Kedar Aguilar MD Report #: [id number] Location: Room/Bed: Procedure: [id number] CT/CT ABDOMEN/PELVIS W Exam Date: 01/03/20 Exam Time: 1330 REPORT STATUS: Signed EXAM: CT Chest, Abdomen and Pelvis WITH intravenous contrast INDICATION: Shortness of breath, abdominal pain COMPARISON: None. TECHNIQUE: The chest, abdomen and pelvis were scanned utilizing a multidetector helical scanner from the thoracic inlet to the pubic symphysis following administration of IV contrast. Coronal and sagittal reformations were obtained. Scan was performed during portal venous phase. IV CONTRAST: 100cc Isovue 370 ORAL CONTRAST: Water COMPLICATIONS: None RADIATION DOSE: Total DLP: 945 mGy*cm Dose modulation, iterative reconstruction, and/or weight based adjustment of the mA/kV was utilized to reduce the radiation dose to as low as reasonably achievable. FINDINGS: LINES/ TUBES: None. LUNGS AND AIRWAYS: The central airways are patent. Dependent right lower lobe and to a lesser extent left lower lobe subsegmental atelectasis. No focal consolidation. No air space edema. PLEURA: Moderate right and small left pleural effusions. No pneumothorax. HEART AND MEDIASTINUM: The thyroid gland is not visualized. No supraclavicular, axillary, mediastinal, or hilar lymphadenopathy. The heart is not enlarged. No pericardial effusion. Mitral annular calcifications. Scattered atherosclerotic calcifications of the thoracic aorta. No central pulmonary embolism. HEPATOBILIARY: Diffuse hepatic steatosis and nodular liver surface contour. No biliary ductal dilation. Status post cholecystectomy. SPLEEN: No splenomegaly. PANCREAS: No focal masses or ductal dilatation. ADRENALS: No adrenal nodules. KIDNEYS/URETERS: No renal calculi, hydronephrosis, or solid renal mass lesion. PELVIC ORGANS/BLADDER: Unremarkable. PERITONEUM / RETROPERITONEUM: Trace ascites in the pelvis. No free air. LYMPH NODES: No lymphadenopathy. VESSELS: Sequela of portal hypertension with recanalization of the umbilical vein and a very large splenorenal shunt. Small left pelvic portosystemic varices. GI TRACT: Mild stomach and proximal duodenal wall thickening, possibly related to portal gastropathy. No bowel obstruction. BONES AND SOFT TISSUES: No acute osseous injury. No suspicious lytic or blastic lesions. IMPRESSION: Moderate right and small left pleural effusions. No focal pneumonia or pulmonary airspace edema. Hepatic cirrhosis and sequela of portal hypertension including recanalization of the umbilical vein and prominent portosystemic varices, most notably a large splenorenal shunt. Mild stomach and proximal duodenal wall thickening, possibly related to portal gastropathy. Signed by: Jessica Ramirez MD on 01/03/2020 2:33 PM Dictated By: JESSICA RAMIREZ MD 32 Transcribed By: LIV on 01/03/201432 COPY TO: KEDAR AGUILAR MD Capillary blood glucose measurement by glucometer (mas s/volume) 2019-09-28 11:19:00 Test Item Bedside Glucose (test code = 97568-8) 303 70-120 Meter ID: [id number] [facility] (mass/volume)2019-09-28 11:19:00* Test Item Value Reference Range Interpretation Comments Bedside Glucose (test code = 67986-2) 303 70-120 Meter ID: [id number] [facility] by glucometer (mass/volume)2019-09-28 11:19:00* Test Item Value Reference Range Interpretation Comments Bedside Glucose (test code = 44409-7) 303 70-120 Meter ID: [id number] [facility]2019-09-28 09:42:[address] [address] Patient Name: DEBORAH AGUERO MR #: [id number] : 1955 Age/Sex: 64/F Req #: [id number] [facility] Physician: STORMY RYAN MD Ordered by: STORMY RYAN MD Report #: [id number] Location: MED/SURG2 Room/Bed: [facility] Procedure: [id number] DX/CHEST SINGLE ( PORTABLE) Exam Date: 09/28/19 Exam Time: 05 REPORT STATUS: Signed EXAM: CHEST SIN GLE [...] Count (test code = 6690-2) 5.97 4.8-10.8 [facility] erythrocytes automated count (number/volume)2019-09-28 05:10:00* Test Item Value Reference Range Interpretation Comments Red Blood Count (test code = 789-8) 3.44 3.6-5.1 [facility] hemoglobin measurement (moles/volume)2019-09-28 05:10:00* Test Item Value Reference Range Interpretation Comments Hemoglobin (test code = 63279-6) 11.5 12.0-16.0 [facility] CampusAutomated blood hematocrit (volume fraction)2019-09-28 05:10:00* Test Item Value Reference Range Interpretation Comments Hematocrit (test code = 4544-3) 35.1 34.2-44.1 [facility] CampusAutomated erythrocyte mean corpuscular wegibw3822-82-88 05:10:00* Test Item Value Reference Range Interpretation Comments Mean Corpuscular Volume (test code = 787-2) 102.0 81-99 [facility] CampusAutomated erythrocyte mean corpuscular hemoglobin (mass per erythrocyte)2019-09-28 05:10:00* Test Item Value Reference Range Interpretation Comments Mean Corpuscular Hemoglobin (test code = 785-6) 33.4 28-32 [facility] CampusAutomated erythrocyte mean corpuscular hemoglobin concentration measurement (mass/volume)2019-09-28 05:10:00* Test Item Value Reference Range Interpretation Comments Mean Corpuscular Hemoglobin Concent (test code = 786-4) 32.8 31-35 [facility] CampusRDW TopUh-Ccd8497-17-05 05:10:00* Test Item Value Reference Range Interpretation Comments Red Cell Distribution Width (test code = 56063-8) 15.3 11.7 -14.4 [facility] CampusAutomated blood platelet count (count/volume)2019-09-28 05:10:00* Test Item Value Reference Range Interpretation Comments Platelet Count (test code = 777-3) 77 140-360 [facility] CampusAutomated blood segmented neutrophil count as percentage of total pxqlkfvuoe1699-30-63 05:10:00* Test Item Value Reference Range Interpretation Comments Neutrophils (%) (Auto) (test code = 13286-0) 52.2 38.7-80.0 [facility] CampusAutomated blood lymphocyte count as percentage ot total ssgdvusftt5663-77-54 05:10:00* Test Item Value Reference Range Interpretation Comments Lymphocytes (%) (Auto) (test code = 736-9) 29.3 18.0-39.1 [facility] CampusAutomated blood monocyte count as percentage of total ycmuclzsdm1251-88-87 05:10:00* Test Item Value Reference Range Interpretation Comments Monocytes (%) (Auto) (test code = 5905-5) 12.2 4.4-11.3 [facility] CampusAutomated blood eosinophil count as percentage of total onmzbcjbvg0918-61-86 05:10:00* Test Item Value Reference Range Interpretation Comments Eosinophils (%) (Auto) (test code = 713-8) 5.5 0.0-6.0 [facility] CampusAutomated blood basophil count as percentage of total igeoxnrhdv9405-11-54 05:10:00* Test Item Value Reference Range Interpretation Comments Basophils (%) (Auto) (test code = 706-2) 0.5 0.0-1.0 [facility] CampusFluoroscopic procedure less than one hour raynvaqt2476-90-80 05:10:00* Test Item Value Reference Range Interpretation Comments IM GRANULOCYTES % (test code = IM GRANULOCYTES %) 0.3 0.0- 1.0 [facility] CampusAutomated blood neutrophil count 2019-09-28 05:10:00* Test Item Value Reference Range Interpretation Comments Neutrophils # (Auto) (test code = 751-8) 3.1 2.1-6.9 [facility] CampusBlood lymphocytes count (number/volume) 2019-09-28 05:10:00* Test Item Value Reference Range Interpretation Comments Lymphocytes # (Auto) (test code = 09408-9) 1.8 1.0-3.2 [facility] CampusBlood monocytes automated count (number/volume)2019-09-28 05:10:00* Test Item Value Reference Range Interpretation Comments Monocytes # (Auto) (test code = 742-7) 0.7 0.2-0.8 [facility] CampusAutomated blood eosinophil count 2019-09-28 05:10:00* Test Item Value Reference Range Interpretation Comments Eosinophils # (Auto) (test code = 711-2) 0.3 0.0-0.4 [facility] CampusAutomated blood basophil count (count/volume)2019-09-28 05:10:00* Test Item Value Reference Range Interpretation Comments Basophils # (Auto) (test code = 704-7) 0.0 0.0-0.1 [facility] CampusFluoroscopic procedure less than one hour vwgfpzwc5668-30-20 05:10:00* Test Item Value Reference Range Interpretation Comments Absolute Immature Granulocyte (auto ([place] t code = Absolute Immature Granulocyte (auto) 0.02 0-0.1 [facility] sodium measurement (moles/volume)2019-09-28 05:10:00* Test Item Value Reference Range Interpretation Comments Sodium Level (test code = 2951-2) 138 136-145 [facility]er[facility] plasma potassium measurement (moles/volume)2019-09-28 05:10:00* Test Item Value Reference Range Interpretation Comments Potassium Level (test code = 2823-3) 3.4 3.5-5.1 [facility]er[facility] plasma chloride measurement (moles/volume)2019-09-28 05:10:00* Test Item Value Reference Range Interpretation Comments Chloride Level (test code = 2075-0) 100 98-107 [facility] Regionalerum or plasma carbon dioxide, total measurement (moles/volume)2019-09-28 05:10:00* Test Item Value Reference Range Interpretation Comments Carbon Dioxide Level (test code = 2028-9) 33 22-29 [facility] Regionalerum or plasma anion waf2083-11-90 05:10:00* Test Item Value Reference Range Interpretation Comments Anion Gap (test code = 92148-3) 8.4 8-16 [facility]er[facility] or plasma urea nitrogen measurement (mass/volume)2019-09-28 05:10:00* Test Item Value Reference Range Interpretation Comments Blood Urea Nitrogen (test code = 3094-0) 7 7-26 [facility]er[facility] or plasma creatinine measurement (mass/volume)2019-09-28 05:10:00* Test Item Value Reference Range Interpretation Comments Creatinine (test code = 2160-0) 0.90 0.57-1.11 [facility] Regionalerum or plasma urea nitrogen/creatinine mass udzfe3161-25-54 05:10:00* Test Item Value Reference Range Interpretation Comments BUN/Creatinine Ratio (test code = 3097-3) 8 6-25 [facility] CampusEstimated glomerular filtration rate (GFR) anqscalihbbbq9673-95-69 05:10:00* Test Item Value Reference Range Interpretation Comments Estimat Glomerular Filtration Rate (test code = 844903273) > 60 >60 Ranges were taken from the National Kidney Disease Education Program and the [facility] [employer] [employer] literature.Reference ranges:60 or greater: Gqarkq11-31 ( for 3 consecutive months): Chronic kidney disease 15 or less: Kidney failureThe [facility] of [facility] CampusGlucose obgvchrqtec7102-96-06 05:10:00* Test Item Value Reference Range Interpretation Comments Glucose Level (test code = VHW5176) 310 74-118 [facility]er[facility] or plasma calcium measurement (mass/volume)2019-09-28 05:10:00* Test Item Value Reference Range Interpretation Comments Calcium Level (test code = 60161-6) 8.0 8.4-10.2 [facility]er[facility] or plasma magnesium measurement (mass/volume)2019-09-28 05:10:00* Test Item Value Reference Range Interpretation Comments Magnesium Level (test code = 01507-4) 1.5 1.3-2.1 [facility] Regionaler[facility] or plasma total bilirubin measurement (mass/volume)2019-09-28 05:10:00* Test Item Value Reference Range Interpretation Comments Total Bilirubin (test code = 1975-2) 3.4 0.2-1.2 [facility] CampusFluoroscopic procedure less than one hour bnbecoop8617-76-19 05:10:00* Test Item Value Reference Range Interpretation Comments Aspartate Amino Transf (AST/SGOT) (test code = Aspartate Amino Transf (AST/SGOT)) 34 5-34 [facility]er[facility] or plasma alanine aminotransferase measurement (enzymatic activity/volume)2019-09-28 05:10:00* Test Item Value Reference Range Interpretation Comments Alanine Aminotransferase (ALT/SGPT) (test code = 1742-6) 28 0-55 [facility] Regionalerum or plasma protein measurement (mass/volume)2019-09-28 05:10:00* Test Item Value Reference Range Interpretation Comments Total Protein (test code = 2885-2) 5.8 6.5-8.1 [facility]er[facility] or plasma albumin measurement (mass/volume)2019-09-28 05:10:00* Test Item Value Reference Range Interpretation Comments Albumin (test code = 1751-7) 1.9 3.5-5.0 [facility] CampusPlasma globulin measurement (mass/volume) 2019-09-28 05:10:00* Test Item Value Reference Range Interpretation Comments Globulin (test code = 64905-9) 3.9 2.3-3.5 [facility]er[facility] or plasma albumin/globulin mass nogqb1928-04-56 05:10:00* Test Item Value Reference Range Interpretation Comments Albumin/Globulin Ratio (test code = 1759-0) 0.5 0.8-2.0 [facility]er[facility] or plasma alkaline phosphatase measurement (enzymatic activity/volume)2019-09-28 05:10:00* Test Item Value Reference Range Interpretation Comments Alkaline Phosphatase (test code = 6768-6) 205 40-150 [facility] CampusBlood leukocytes automated count (number/volume)2019-09-28 05:10:00* Test Item Value Reference Range Interpretation Comments White Blood Count (test code = 6690-2) 5.97 4.8-10.8 [facility] CampusBlood erythrocytes automated count (number/volume)2019-09-28 05:10:00* Test Item Value Reference Range Interpretation Comments Red Blood Count (test code = 789-8) 3.44 3.6-5.1 [facility] CampusBlood hemoglobin measurement (moles/volume)2019-09-28 05:10:00* Test Item Value Reference Range Interpretation Comments Hemoglobin (test code = 62015-2) 11.5 12.0-16.0 [facility] CampusAutomated blood hematocrit (volume fraction)2019-09-28 05:10:00* Test Item Value Reference Range Interpretation Comments Hematocrit (test code = 4544-3) 35.1 34.2-44.1 [facility] CampusAutomated erythrocyte mean corpuscular qdahks1517-55-54 05:10:00* Test Item Value Reference Range Interpretation Comments Mean Corpuscular Volume (test code = 787-2) 102.0 81-99 [facility] CampusAutomated erythrocyte mean corpuscular hemoglobin (mass per erythrocyte)2019-09-28 05:10:00* Test Item Value Reference Range Interpretation Comments Mean Corpuscular Hemoglobin (test code = 785-6) 33.4 28-32 [facility] CampusAutomated erythrocyte mean corpuscular hemoglobin concentration measurement (mass/volume)2019-09-28 05:10:00* Test Item Value Reference Range Interpretation Comments Mean Corpuscular Hemoglobin Concent (test code = 786-4) 32.8 31-35 [facility] CampusRDW WbyZq-Sfd1017-52-05 05:10:00* Test Item Value Reference Range Interpretation Comments Red Cell Distribution Width (test code = 63495-6) 15.3 11.7 -14.4 [facility] CampusAutomated blood platelet count (count/volume)2019-09-28 05:10:00* Test Item Value Reference Range Interpretation Comments Platelet Count (test code = 777-3) 77 140-360 [facility] CampusAutomated blood segmented neutrophil count as percentage of total vauivuggdh6429-93-39 05:10:00* Test Item Value Reference Range Interpretation Comments Neutrophils (%) (Auto) (test code = 40249-9) 52.2 38.7-80.0 [facility] CampusAutomated blood lymphocyte count as percentage ot total ainqqvmjuk6474-93-53 05:10:00* Test Item Value Reference Range Interpretation Comments Lymphocytes (%) (Auto) (test code = 736-9) 29.3 18.0-39.1 [facility] CampusAutomated blood monocyte count as percentage of total sdzbrqtlvh3189-07-42 05:10:00* Test Item Value Reference Range Interpretation Comments Monocytes (%) (Auto) (test code = 5905-5) 12.2 4.4-11.3 [facility] CampusAutomated blood eosinophil count as percentage of total thoxrooggz8841-64-30 05:10:00* Test Item Value Reference Range Interpretation Comments Eosinophils (%) (Auto) (test code = 713-8) 5.5 0.0-6.0 [facility] CampusAutomated blood basophil count as percentage of total pftnekidrj2121-31-31 05:10:00* Test Item Value Reference Range Interpretation Comments Basophils (%) (Auto) (test code = 706-2) 0.5 0.0-1.0 [facility] CampusFluoroscopic procedure less than one hour hjezxdaj6143-06-61 05:10:00* Test Item Value Reference Range Interpretation Comments IM GRANULOCYTES % (test code = IM GRANULOCYTES %) 0.3 0.0- 1.0 [facility] CampusAutomated blood neutrophil count 2019-09-28 05:10:00* Test Item Value Reference Range Interpretation Comments Neutrophils # (Auto) (test code = 751-8) 3.1 2.1-6.9 [facility] CampusBlood lymphocytes count (number/volume) 2019-09-28 05:10:00* Test Item Value Reference Range Interpretation Comments Lymphocytes # (Auto) (test code = 29166-0) 1.8 1.0-3.2 [facility] CampusBlood monocytes automated count (number/volume)2019-09-28 05:10:00* Test Item Value Reference Range Interpretation Comments Monocytes # (Auto) (test code = 742-7) 0.7 0.2-0.8 [facility] CampusAutomated blood eosinophil count 2019-09-28 05:10:00* Test Item Value Reference Range Interpretation Comments Eosinophils # (Auto) (test code = 711-2) 0.3 0.0-0.4 [facility] CampusAutomated blood basophil count (count/volume)2019-09-28 05:10:00* Test Item Value Reference Range Interpretation Comments Basophils # (Auto) (test code = 704-7) 0.0 0.0-0.1 [facility] CampusFluoroscopic procedure less than one hour ghknojso1799-59-49 05:10:00* Test Item Value Reference Range Interpretation Comments Absolute Immature Granulocyte (auto ([place] t code = Absolute Immature Granulocyte (auto) 0.02 0-0.1 [facility] plasma sodium measurement (moles/volume)2019-09-28 05:10:00* Test Item Value Reference Range Interpretation Comments Sodium Level (test code = 2951-2) 138 136-145 [facility] Regionalerum or plasma potassium measurement (moles/volume)2019-09-28 05:10:00* Test Item Value Reference Range Interpretation Comments Potassium Level (test code = 2823-3) 3.4 3.5-5.1 [facility] Regionalerum or plasma chloride measurement (moles/volume)2019-09-28 05:10:00* Test Item Value Reference Range Interpretation Comments Chloride Level (test code = 2075-0) 100 98-107 [facility] Regionalerum or plasma carbon dioxide, total measurement (moles/volume)2019-09-28 05:10:00* Test Item Value Reference Range Interpretation Comments Carbon Dioxide Level (test code = 2028-9) 33 22-29 [facility] Regionalerum or plasma anion wuo5258-13-36 05:10:00* Test Item Value Reference Range Interpretation Comments Anion Gap (test code = 38815-8) 8.4 8-16 [facility] Regionalerum or plasma urea nitrogen measurement (mass/volume)2019-09-28 05:10:00* Test Item Value Reference Range Interpretation Comments Blood Urea Nitrogen (test code = 3094-0) 7 7-26 [facility] Regionalerum or plasma creatinine measurement (mass/volume)2019-09-28 05:10:00* Test Item Value Reference Range Interpretation Comments Creatinine (test code = 2160-0) 0.90 0.57-1.11 [facility] Regionalerum or plasma urea nitrogen/creatinine mass yzhjo3131-96-49 05:10:00* Test Item Value Reference Range Interpretation Comments BUN/Creatinine Ratio (test code = 3097-3) 8 6-25 [facility] CampusEstimated glomerular filtration rate (GFR) stcmetrbulcsd1153-43-67 05:10:00* Test Item Value Reference Range Interpretation Comments Estimat Glomerular Filtration Rate (test code = 853769149) > 60 >60 Ranges were taken from the National Kidney Disease Education Program and the [facility] literature.Reference ranges:60 or greater: Uuiwfj25-85 ( for 3 consecutive months): Chronic kidney disease 15 or less: Kidney failureThe [facility] CampusGlucose owlmquyshoa3072-53-14 05:10:00* Test Item Value Reference Range Interpretation Comments Glucose Level (test code = AJI3929) 310 74-118 [facility] Regionalerum or plasma calcium measurement (mass/volume)2019-09-28 05:10:00* Test Item Value Reference Range Interpretation Comments Calcium Level (test code = 43343-9) 8.0 8.4-10.2 [facility] Regionaler[facility] or plasma magnesium measurement (mass/volume)2019-09-28 05:10:00* Test Item Value Reference Range Interpretation Comments Magnesium Level (test code = 82627-8) 1.5 1.3-2.1 [facility] Regionaler[facility] or plasma total bilirubin measurement (mass/volume)2019-09-28 05:10:00* Test Item Value Reference Range Interpretation Comments Total Bilirubin (test code = 1975-2) 3.4 0.2-1.2 [facility] CampusFluoroscopic procedure less than one hour csttunzb4725-58-14 05:10:00* Test Item Value Reference Range Interpretation Comments Aspartate Amino Transf (AST/SGOT) (test code = Aspartate Amino Transf (AST/SGOT)) 34 5-34 [facility] Regionalerum or plasma alanine aminotransferase measurement (enzymatic activity/volume)2019-09-28 05:10:00* Test Item Value Reference Range Interpretation Comments Alanine Aminotransferase (ALT/SGPT) (test code = 1742-6) 28 0-55 [facility] Regionalerum or plasma protein measurement (mass/volume)2019-09-28 05:10:00* Test Item Value Reference Range Interpretation Comments Total Protein (test code = 2885-2) 5.8 6.5-8.1 [facility] Regionalerum or plasma albumin measurement (mass/volume)2019-09-28 05:10:00* Test Item Value Reference Range Interpretation Comments Albumin (test code = 1751-7) 1.9 3.5-5.0 [facility] CampusPlasma globulin measurement (mass/volume) 2019-09-28 05:10:00* Test Item Value Reference Range Interpretation Comments Globulin (test code = 68203-5) 3.9 2.3-3.5 [facility] Regionalerum or plasma albumin/globulin mass sppwa1480-81-51 05:10:00* Test Item Value Reference Range Interpretation Comments Albumin/Globulin Ratio (test code = 1759-0) 0.5 0.8-2.0 [facility] Regionalerum or plasma alkaline phosphatase measurement (enzymatic activity/volume)2019-09-28 05:10:00* Test Item Value Reference Range Interpretation Comments Alkaline Phosphatase (test code = 6768-6) 205 40-150 [facility] CampusBlood leukocytes automated count (number/volume)2019-09-28 05:10:00* Test Item Value Reference Range Interpretation Comments White Blood Count (test code = 6690-2) 5.97 4.8-10.8 [facility] CampusBlhutchinson [facility] erythrocytes automated count (number/volume)2019-09-28 05:10:00* Test Item Value Reference Range Interpretation Comments Red Blood Count (test code = 789-8) 3.44 3.6-5.1 [facility] CampusBlood hemoglobin measurement (moles/volume)2019-09-28 05:10:00* Test Item Value Reference Range Interpretation Comments Hemoglobin (test code = 28723-5) 11.5 12.0-16.0 [facility] CampusAutomated blood hematocrit (volume fraction)2019-09-28 05:10:00* Test Item Value Reference Range Interpretation Comments Hematocrit (test code = 4544-3) 35.1 34.2-44.1 [facility] CampusAutomated erythrocyte mean corpuscular fsxpcp4250-97-17 05:10:00* Test Item Value Reference Range Interpretation Comments Mean Corpuscular Volume (test code = 787-2) 102.0 81-99 [facility] CampusAutomated erythrocyte mean corpuscular hemoglobin (mass per erythrocyte)2019-09-28 05:10:00* Test Item Value Reference Range Interpretation Comments Mean Corpuscular Hemoglobin (test code = 785-6) 33.4 28-32 [facility] CampusAutomated erythrocyte mean corpuscular hemoglobin concentration measurement (mass/volume)2019-09-28 05:10:00* Test Item Value Reference Range Interpretation Comments Mean Corpuscular Hemoglobin Concent (test code = 786-4) 32.8 31-35 [facility] CampusRDW XjoOf-Rrq6760-80-05 05:10:00* Test Item Value Reference Range Interpretation Comments Red Cell Distribution Width (test code = 93601-7) 15.3 11.7 -14.4 [facility] CampusAutomated blood platelet count (count/volume)2019-09-28 05:10:00* Test Item Value Reference Range Interpretation Comments Platelet Count (test code = 777-3) 77 140-360 [facility] CampusAutomated blood segmented neutrophil count as percentage of total uttfmkzcxc7879-39-14 05:10:00* Test Item Value Reference Range Interpretation Comments Neutrophils (%) (Auto) (test code = 41071-9) 52.2 38.7-80.0 [facility] CampusAutomated blood lymphocyte count as percentage ot total gmowqpcazz0565-37-25 05:10:00* Test Item Value Reference Range Interpretation Comments Lymphocytes (%) (Auto) (test code = 736-9) 29.3 18.0-39.1 [facility] CampusAutomated blood monocyte count as percentage of total zapbcppmgf3676-69-08 05:10:00* Test Item Value Reference Range Interpretation Comments Monocytes (%) (Auto) (test code = 5905-5) 12.2 4.4-11.3 [facility] CampusAutomated blood eosinophil count as percentage of total qexipuwxaw5662-53-48 05:10:00* Test Item Value Reference Range Interpretation Comments Eosinophils (%) (Auto) (test code = 713-8) 5.5 0.0-6.0 [facility] CampusAutomated blood basophil count as percentage of total roknnzdeie7744-91-36 05:10:00* Test Item Value Reference Range Interpretation Comments Basophils (%) (Auto) (test code = 706-2) 0.5 0.0-1.0 [facility] CampusFluoroscopic procedure less than one hour qgjwdfek4332-71-89 05:10:00* Test Item Value Reference Range Interpretation Comments IM GRANULOCYTES % (test code = IM GRANULOCYTES %) 0.3 0.0- 1.0 [facility] CampusAutomated blood neutrophil count 2019-09-28 05:10:00* Test Item Value Reference Range Interpretation Comments Neutrophils # (Auto) (test code = 751-8) 3.1 2.1-6.9 [facility] CampusBlood lymphocytes count (number/volume) 2019-09-28 05:10:00* Test Item Value Reference Range Interpretation Comments Lymphocytes # (Auto) (test code = 29478-2) 1.8 1.0-3.2 [facility] CampusBlood monocytes automated count (number/volume)2019-09-28 05:10:00* Test Item Value Reference Range Interpretation Comments Monocytes # (Auto) (test code = 742-7) 0.7 0.2-0.8 [facility] CampusAutomated blood eosinophil count 2019-09-28 05:10:00* Test Item Value Reference Range Interpretation Comments Eosinophils # (Auto) (test code = 711-2) 0.3 0.0-0.4 [facility] CampusAutomated blood basophil count (count/volume)2019-09-28 05:10:00* Test Item Value Reference Range Interpretation Comments Basophils # (Auto) (test code = 704-7) 0.0 0.0-0.1 [facility] CampusFluoroscopic procedure less than one hour cdekuklt7859-49-00 05:10:00* Test Item Value Reference Range Interpretation Comments Absolute Immature Granulocyte (auto ([place] t code = Absolute Immature Granulocyte (auto) 0.02 0-0.1 [facility] Regionaler[facility] or plasma sodium measurement (moles/volume)2019-09-28 05:10:00* Test Item Value Reference Range Interpretation Comments Sodium Level (test code = 2951-2) 138 136-145 [facility] Regionalerum or plasma potassium measurement (moles/volume)2019-09-28 05:10:00* Test Item Value Reference Range Interpretation Comments Potassium Level (test code = 2823-3) 3.4 3.5-5.1 [facility] Regionalerum or plasma chloride measurement (moles/volume)2019-09-28 05:10:00* Test Item Value Reference Range Interpretation Comments Chloride Level (test code = 2075-0) 100 98-107 [facility] Regionalerum or plasma carbon dioxide, total measurement (moles/volume)2019-09-28 05:10:00* Test Item Value Reference Range Interpretation Comments Carbon Dioxide Level (test code = 2028-9) 33 22-29 [facility] Regionalerum or plasma anion raz2518-16-53 05:10:00* Test Item Value Reference Range Interpretation Comments Anion Gap (test code = 63395-5) 8.4 8-16 [facility] Regionalerum or plasma urea nitrogen measurement (mass/volume)2019-09-28 05:10:00* Test Item Value Reference Range Interpretation Comments Blood Urea Nitrogen (test code = 3094-0) 7 7-26 [facility] Regionalerum or plasma creatinine measurement (mass/volume)2019-09-28 05:10:00* Test Item Value Reference Range Interpretation Comments Creatinine (test code = 2160-0) 0.90 0.57-1.11 [facility] Regionalerum or plasma urea nitrogen/creatinine mass mztrr1615-93-15 05:10:00* Test Item Value Reference Range Interpretation Comments BUN/Creatinine Ratio (test code = 3097-3) 8 6-25 [facility] CampusEstimated glomerular filtration rate (GFR) rzwjsvlvjhpzh9059-78-53 05:10:00* Test Item Value Reference Range Interpretation Comments Estimat Glomerular Filtration Rate (test code = 748269125) > 60 >60 Ranges were taken from the National Kidney Disease Education Program and the [facility] Kidney Foundation literature.Reference ranges:60 or greater: Pdfzfl77-69 ( for 3 consecutive months): Chronic kidney disease 15 or less: Kidney failureThe [facility] of [facility] CampusGlucose lriijiejueb4073-66-34 05:10:00* Test Item Value Reference Range Interpretation Comments Glucose Level (test code = URY3807) 310 74-118 [facility] Regionalerum or plasma calcium measurement (mass/volume)2019-09-28 05:10:00* Test Item Value Reference Range Interpretation Comments Calcium Level (test code = 33759-1) 8.0 8.4-10.2 [facility] Regionalerum or plasma magnesium measurement (mass/volume)2019-09-28 05:10:00* Test Item Value Reference Range Interpretation Comments Magnesium Level (test code = 72010-6) 1.5 1.3-2.1 [facility] Regionalerum or plasma total bilirubin measurement (mass/volume)2019-09-28 05:10:00* Test Item Value Reference Range Interpretation Comments Total Bilirubin (test code = 1975-2) 3.4 0.2-1.2 [facility] CampusFluoroscopic procedure less than one hour ortgkmrk8908-57-66 05:10:00* Test Item Value Reference Range Interpretation Comments Aspartate Amino Transf (AST/SGOT) (test code = Aspartate Amino Transf (AST/SGOT)) 34 5-34 [facility] Regionalerum or plasma alanine aminotransferase measurement (enzymatic activity/volume)2019-09-28 05:10:00* Test Item Value Reference Range Interpretation Comments Alanine Aminotransferase (ALT/SGPT) (test code = 1742-6) 28 0-55 [facility] Regionalerum or plasma protein measurement (mass/volume)2019-09-28 05:10:00* Test Item Value Reference Range Interpretation Comments Total Protein (test code = 2885-2) 5.8 6.5-8.1 [facility] Regionalerum or plasma albumin measurement (mass/volume)2019-09-28 05:10:00* Test Item Value Reference Range Interpretation Comments Albumin (test code = 1751-7) 1.9 3.5-5.0 [facility] CampusPlasma globulin measurement (mass/volume) 2019-09-28 05:10:00* Test Item Value Reference Range Interpretation Comments Globulin (test code = 28563-1) 3.9 2.3-3.5 [facility] Regionaler[facility] or plasma albumin/globulin mass oingd2575-00-93 05:10:00* Test Item Value Reference Range Interpretation Comments Albumin/Globulin Ratio (test code = 1759-0) 0.5 0.8-2.0 [facility] Regionalerum or plasma alkaline phosphatase measurement (enzymatic activity/volume)2019-09-28 05:10:00* Test Item Value Reference Range Interpretation Comments Alkaline Phosphatase (test code = 6768-6) 205 40-150 [facility] BGTXRBJ1022-82-67 16:14:00 [place] [address] Patient Name: DEBORAH AGUERO MR #: [id number] : 1955 Age/Sex: 64/F Req #: [id number] Adm Physician: STORMY RYAN MD Ordered by: ALEX JOSEPH MD Report #: [id number] Location: MED/SURG2 Room/Bed: [facility] Procedure: [id number] US/US ABDOMEN TARI CHUN Exam Date: 09/27/19 [...] MD on 09/27/2019 4:15 PM Dictated By: JESSICA RAMIREZ MD 1615 Transcribed By: KORI MCNEILL on 09/27/19 1615 COPY TO: ALEX JOSEPH MD CHEST SINGLE (PORTABLE)2019-09-27 06:36:00 [place] [address] Patient Name: DEBORAH AGUERO MR #: [id number] : 1955 Age/Sex: 64/F Req #: [id number] Adm Physician: STORMY RYAN MD Ordered by: STORMY RYAN MD Report #: [id number] Location: MED/SURG2 Room/Bed: [facility] Procedure: [id number] DX/CHEST SINGLE ( PORTABLE) Exam Date: 09/27/19 Exam Time: 509 REPORT STATUS: Signed EXAMINATION: CH EST SINGLE (PORTABLE) INDICATION: [id number] COMPARISON: [...] STORMY RYAN MD CHEST SINGLE (PORTABLE)2019-09-26 06:20:00 [place] [address] Patient Name: DEBORAH AGUERO MR #: [id number] : 1955 Age/Sex: 64/F Req #: [id number] Adm Physician: STORMY RYAN MD Ordered by: STORMY RYAN MD Report #: [id number] Location: MED/SURG2 Room/Bed: 209-1 Procedure: [id number] DX/CHEST SINGLE ( PORTABLE) Exam Date: 09/26/19 Exam Time: 0550 REPORT STATUS: Signed EXAMINATION: CH EST SINGLE (PORTABLE) INDICATION: Shortness of breath [...] than left. Stable car diomegaly. Signed by: Fortunato Arriola MD on 09/26/2019 6:23 AM Dict ated By: FORTUNATO ARRIOLA MD 2 COPY TO: STORMY RYAN MD CT ABDOMEN/PELVIS [id number] 14:21:00 [place] [address] Patient Name: DEBORAH AGUERO MR #: [id number] : 1955 Age/Sex: 64/F Req #: [id number] Adm Physician: Ordered by: ADONIS MATHEW Report #: [id number] Location: ER Room/Bed: Procedure: [id number] CT/CT ABDOMEN/PEL VIS W Exam Date: 09/25/19 [...] since 07/19/2019 for same symptoms. Signed by: Po Sesay 09/25/2019 2:30 PM Dictated By: MIKE LOZANO MD 1430 Transcribed By: LIV on 09/25/19 1430 COPY TO: ADONIS MATHEW CT CHEST [id number] 14:08:00 [place] [address] Patient Name: DEBORAH AGUERO MR #: [id number] : 1955 Age/Sex: 64/F Req #: [id number] Adm Physician: Ordered by: ADONIS MATHEW Report #: [id number] Location: ER Room/Bed: Procedure: [id number] CT/CT CHEST W Ex am Date: 09/25/19 [...] 1419 Transcri bed By: LIV on 09/25/19 1415 COPY TO: ADONIS MATHEW CHEST SINGLE (PORTABLE)2019-09-25 11:21:00 [place] [address] Patient Name: DEBORAH AGUERO MR #: [id number] : 1955 Age/Sex: 64/F Req #: [id number] Adm Physician: Ordered by: ADONIS MATHEW Report #: [id number] Location: ER Room/Bed: Procedure: [id number] DX/CHEST SINGLE ( PORTABLE) Exam Date: 09/25/19 [...] MD 27 Tr anscribed By: LIV on 09/25/19 1128 COPY TO: ADONIS MATHEW Urine color mjikzytjpqejn6857-73-18 11:17:00* Test Item Value Reference Range Interpretation Comments Urine Color (test code = 5778-6) YELLOW YELLOW [facility] CampusUrine ahpsmrj1844-14-43 11:17:00* Test Item Value Reference Range Interpretation Comments Urine Clarity (test code = 14436-5) CLEAR CLEAR [facility] Regionalpecific gravity of Urine by Test strip 2019-09-25 11:17:00* Test Item Value Reference Range Interpretation Comments Urine Specific [place] (test code = 5811-5) 1.025 1.010-1.02 5 [facility] CampusUrine pH measurement by automated test trqlm3367-09-96 11:17:00* Test Item Value Reference Range Interpretation Comments Urine pH (test code = 81038-3) 6.5 5-7 [facility] CampusUrine leukocyte esterase detection by dplwjcdn8392-24-42 11:17:00* Test Item Value Reference Range Interpretation Comments Urine Leukocyte Esterase (test code = 5799-2) NEGATIVE NEGATIVE [facility] CampusUrine nitrite nxweygutg8686-75-34 11:17:00* Test Item Value Reference Range Interpretation Comments Urine Nitrite (test code = 59539-4) NEGATIVE NEGATIVE [facility] CampusUrine protein measurement by test strip (mass/volume)2019-09-25 11:17:00* Test Item Value Reference Range Interpretation Comments Urine Protein (test code = 5804-0) NEGATIVE NEGATIVE [facility] CampusUrine glucose xscqzwprk3100-20-35 11:17:00* Test Item Value Reference Range Interpretation Comments Urine Glucose (UA) (test code = 2349-9) 2+ NEGATIVE [facility] CampusUrine ketones detection by automated test dsrtr5739-40-33 11:17:00* Test Item Value Reference Range Interpretation Comments Urine Ketones (test code = 49968-2) NEGATIVE NEGATIVE [facility] CampusUrine urobilinogen measurement by test strip (mass/volume)2019-09-25 11:17:00* Test Item Value Reference Range Interpretation Comments Urine Urobilinogen (test code = 99956-8) 0.2 0.2-1 [facility] CampusUrine total bilirubin measurement (mass/volume)2019-09-25 11:17:00* Test Item Value Reference Range Interpretation Comments Urine Bilirubin (test code = 1978-6) NEGATIVE NEGATIVE [facility] CampusUrine erythrocytes mkhnurnkp1848-54-33 11:17:00* Test Item Value Reference Range Interpretation Comments Urine Blood (test code = 22895-5) TRACE NEGATIVE [facility] CampusAutomated urine sediment leukocyte count by microscopy (number/high power field)2019-09-25 11:17:00* Test Item Value Reference Range Interpretation Comments Urine WBC (test code = 5821-4) 0-5 0-5 [facility] CampusErythrocytes detection in urine sediment by light kqhypvqfcn7973-17-33 11:17:00* Test Item Value Reference Range Interpretation Comments Urine RBC (test code = 36216-1) 0-5 0-5 [facility] CampusBacteria detection in urine sediment by light lnyiuxdgwk8991-14-63 11:17:00* Test Item Value Reference Range Interpretation Comments Urine Bacteria (test code = 66087-4) FEW NONE [facility] CampusEpithelial cells detection in urine sediment by light nmokmurnqr3570-73-36 11:17:00* Test Item Value Reference Range Interpretation Comments Urine Epithelial Cells (test code = 08627-5) FEW NONE [facility] CampusUrine color ctlhzrfwhxxkm0240-00-36 11:17:00* Test Item Value Reference Range Interpretation Comments Urine Color (test code = 5778-6) YELLOW YELLOW [facility] CampusUrine ofvmkhp1863-64-31 11:17:00* Test Item Value Reference Range Interpretation Comments Urine Clarity (test code = 65970-4) CLEAR CLEAR [facility] Regionalpecific gravity of Urine by Test strip 2019-09-25 11:17:00* Test Item Value Reference Range Interpretation Comments Urine Specific [place] (test code = 5811-5) 1.025 1.010-1.02 5 [facility] CampusUrine pH measurement by automated test heynt5935-13-17 11:17:00* Test Item Value Reference Range Interpretation Comments Urine pH (test code = 02145-6) 6.5 5-7 [facility] CampusUrine leukocyte esterase detection by hdqijlfj9451-42-84 11:17:00* Test Item Value Reference Range Interpretation Comments Urine Leukocyte Esterase (test code = 5799-2) NEGATIVE NEGATIVE [facility] CampusUrine nitrite iylvknmuu8878-32-07 11:17:00* Test Item Value Reference Range Interpretation Comments Urine Nitrite (test code = 64329-3) NEGATIVE NEGATIVE [facility] CampusUrine protein measurement by test strip (mass/volume)2019-09-25 11:17:00* Test Item Value Reference Range Interpretation Comments Urine Protein (test code = 5804-0) NEGATIVE NEGATIVE [facility] CampusUrine glucose hmaasrrxo2118-08-86 11:17:00* Test Item Value Reference Range Interpretation Comments Urine Glucose (UA) (test code = 2349-9) 2+ NEGATIVE [facility] CampusUrine ketones detection by automated test asucj9977-64-76 11:17:00* Test Item Value Reference Range Interpretation Comments Urine Ketones (test code = 44422-1) NEGATIVE NEGATIVE [facility] CampusUrine urobilinogen measurement by test strip (mass/volume)2019-09-25 11:17:00* Test Item Value Reference Range Interpretation Comments Urine Urobilinogen (test code = 69220-5) 0.2 0.2-1 [facility] CampusUrine total bilirubin measurement (mass/volume)2019-09-25 11:17:00* Test Item Value Reference Range Interpretation Comments Urine Bilirubin (test code = 1978-6) NEGATIVE NEGATIVE [facility] CampusUrine erythrocytes hbhtdekaj6971-40-45 11:17:00* Test Item Value Reference Range Interpretation Comments Urine Blood (test code = 20675-6) TRACE NEGATIVE [facility] CampusAutomated urine sediment leukocyte count by microscopy (number/high power field)2019-09-25 11:17:00* Test Item Value Reference Range Interpretation Comments Urine WBC (test code = 5821-4) 0-5 0-5 [facility] CampusErythrocytes detection in urine sediment by light dlwvwlrshn6043-33-14 11:17:00* Test Item Value Reference Range Interpretation Comments Urine RBC (test code = 30801-6) 0-5 0-5 [facility] CampusBacteria detection in urine sediment by light fontmxampy2085-67-54 11:17:00* Test Item Value Reference Range Interpretation Comments Urine Bacteria (test code = 00477-0) FEW NONE [facility] CampusEpithelial cells detection in urine sediment by light eiowywhhcd2414-88-02 11:17:00* Test Item Value Reference Range Interpretation Comments Urine Epithelial Cells (test code = 15218-5) FEW NONE [facility] CampusUrine color dntnquophyewf0948-20-28 11:17:00* Test Item Value Reference Range Interpretation Comments Urine Color (test code = 5778-6) YELLOW YELLOW [facility] CampusUrine rbmgrqu8639-53-62 11:17:00* Test Item Value Reference Range Interpretation Comments Urine Clarity (test code = 47331-9) CLEAR CLEAR [facility] gravity of Urine by Test strip 2019-09-25 11:17:00* Test Item Value Reference Range Interpretation Comments Urine Specific [place] (test code = 5811-5) 1.025 1.010-1.02 5 [facility] CampusUrine pH measurement by automated test uujzt3319-79-67 11:17:00* Test Item Value Reference Range Interpretation Comments Urine pH (test code = 74948-6) 6.5 5-7 [facility] CampusUrine leukocyte esterase detection by zgixgtil6683-57-06 11:17:00* Test Item Value Reference Range Interpretation Comments Urine Leukocyte Esterase (test code = 5799-2) NEGATIVE NEGATIVE [facility] CampusUrine nitrite aubzasnqs1211-87-78 11:17:00* Test Item Value Reference Range Interpretation Comments Urine Nitrite (test code = 59435-4) NEGATIVE NEGATIVE [facility] CampusUrine protein measurement by test strip (mass/volume)2019-09-25 11:17:00* Test Item Value Reference Range Interpretation Comments Urine Protein (test code = 5804-0) NEGATIVE NEGATIVE [facility] CampusUrine glucose felncwswv4650-62-77 11:17:00* Test Item Value Reference Range Interpretation Comments Urine Glucose (UA) (test code = 2349-9) 2+ NEGATIVE [facility] CampusUrine ketones detection by automated test lozia1995-30-42 11:17:00* Test Item Value Reference Range Interpretation Comments Urine Ketones (test code = 36390-8) NEGATIVE NEGATIVE [facility] CampusUrine urobilinogen measurement by test strip (mass/volume)2019-09-25 11:17:00* Test Item Value Reference Range Interpretation Comments Urine Urobilinogen (test code = 28471-2) 0.2 0.2-1 [facility] CampusUrine total bilirubin measurement (mass/volume)2019-09-25 11:17:00* Test Item Value Reference Range Interpretation Comments Urine Bilirubin (test code = 1978-6) NEGATIVE NEGATIVE [facility] CampusUrine erythrocytes peqtapxzv5448-59-71 11:17:00* Test Item Value Reference Range Interpretation Comments Urine Blood (test code = 34131-7) TRACE NEGATIVE [facility] CampusAutomated urine sediment leukocyte count by microscopy (number/high power field)2019-09-25 11:17:00* Test Item Value Reference Range Interpretation Comments Urine WBC (test code = 5821-4) 0-5 0-5 [facility] CampusErythrocytes detection in urine sediment by light ocithknwya2905-80-89 11:17:00* Test Item Value Reference Range Interpretation Comments Urine RBC (test code = 14302-1) 0-5 0-5 [facility] CampusBacteria detection in urine sediment by light mpxpzphcld7793-27-16 11:17:00* Test Item Value Reference Range Interpretation Comments Urine Bacteria (test code = 41182-7) FEW NONE [facility] CampusEpithelial cells detection in urine sediment by light zonexcehgh4750-04-88 11:17:00* Test Item Value Reference Range Interpretation Comments Urine Epithelial Cells (test code = 77636-3) FEW NONE [facility] CampusProthrombin time (PT) in platelet poor plasma by coagulation venhv4423-91-61 11:00:00* Test Item Value Reference Range Interpretation Comments Prothrombin Time (test code = 5902-2) 19.0 11.9-14.5 [facility] CampusINR in Platelet poor plasma by Coagulation ywasz8930-84-38 11:00:00* Test Item Value Reference Range Interpretation Comments Prothromb Time International Ratio (test code = 6301-6) 1.49 Oral Anticoagulant Therapy INR Values:1. Low Intensity Therapy 1.5 - 2.02 . Moderate Intensity Therapy 2.0 - 3.03. High Intensity Therapy(1) 2.5 - 3. 54. High Intensity Therapy(2) 3.0 - 4.05. Panic Value INR > 5.0 [facility] CampusBNP Ktm-kSas9736-93-02 11:00:00* Test Item Value Reference Range Interpretation Comments B-Type Natriuretic Peptide (test code = 97039-6) 281.2 0-100 [facility] Regionalerum or plasma creatine kinase measurement (enzymatic activity/volume)2019-09-25 11:00:00* Test Item Value Reference Range Interpretation Comments Creatine Kinase (test code = 2157-6) 65 29-168 [facility] Regionalerum or plasma creatine kinase MB measurement (mass/volume)2019-09-25 11:00:00* Test Item Value Reference Range Interpretation Comments Creatine Kinase MB (test code = 42767-7) 2.00 0-5.0 [facility] CampusTroponin I measurement by highly sensitive enzyme aeegrymyvlu3690-77-11 11:00:00* Test Item Value Reference Range Interpretation Comments Troponin I (test code = 56955-5) < 0.001 0-0.300 [facility] Regionalerum or plasma lipase measurement (enzymatic activity/volume)2019-09-25 11:00:00* Test Item Value Reference Range Interpretation Comments Lipase (test code = 3040-3) 31 8-78 [facility] CampusProthrombin time (PT) in platelet poor plasma by coagulation tjifp0123-25-59 11:00:00* Test Item Value Reference Range Interpretation Comments Prothrombin Time (test code = 5902-2) 19.0 11.9-14.5 [facility] CampusINR in Platelet poor plasma by Coagulation zlvqi3121-57-29 11:00:00* Test Item Value Reference Range Interpretation Comments Prothromb Time International Ratio (test code = 6301-6) 1.49 Oral Anticoagulant Therapy INR Values:1. Low Intensity Therapy 1.5 - 2.02 . Moderate Intensity Therapy 2.0 - 3.03. High Intensity Therapy(1) 2.5 - 3. 54. High Intensity Therapy(2) 3.0 - 4.05. Panic Value INR > 5.0 [facility]tr[facility]-40 11:00:00* Test Item Value Reference Range Interpretation Comments B-Type Natriuretic Peptide (test code = 21394-7) 281.2 0-100 [facility] Regionalerum or plasma creatine kinase measurement (enzymatic activity/volume)2019-09-25 11:00:00* Test Item Value Reference Range Interpretation Comments Creatine Kinase (test code = 2157-6) 65 29-168 [facility] Regionalerum or plasma creatine kinase MB measurement (mass/volume)2019-09-25 11:00:00* Test Item Value Reference Range Interpretation Comments Creatine Kinase MB (test code = 53717-5) 2.00 0-5.0 [facility] CampusTroponin I measurement by highly sensitive enzyme gsgnofriizf3176-76-56 11:00:00* Test Item Value Reference Range Interpretation Comments Troponin I (test code = 17702-6) < 0.001 0-0.300 [facility] Regionalerum or plasma lipase measurement (enzymatic activity/volume)2019-09-25 11:00:00* Test Item Value Reference Range Interpretation Comments Lipase (test code = 3040-3) 31 8-78 [facility] CampusProthrombin time (PT) in platelet poor plasma by coagulation yzfdr3446-49-90 11:00:00* Test Item Value Reference Range Interpretation Comments Prothrombin Time (test code = 5902-2) 19.0 11.9-14.5 [facility] CampusINR in Platelet poor plasma by Coagulation egrfp9907-30-42 11:00:00* Test Item Value Reference Range Interpretation Comments Prothromb Time International Ratio (test code = 6301-6) 1.49 Oral Anticoagulant Therapy INR Values:1. Low Intensity Therapy 1.5 - 2.02 . Moderate Intensity Therapy 2.0 - 3.03. High Intensity Therapy(1) 2.5 - 3. 54. High Intensity Therapy(2) 3.0 - 4.05. Panic Value INR > 5.0 [facility] CampusBNP Izy-iXwb3008-64-02 11:00:00* Test Item Value Reference Range Interpretation Comments B-Type Natriuretic Peptide (test code = 74866-0) 281.2 0-100 [facility] Regionalerum or plasma creatine kinase measurement (enzymatic activity/volume)2019-09-25 11:00:00* Test Item Value Reference Range Interpretation Comments Creatine Kinase (test code = 2157-6) 65 29-168 [facility] Regionalerum or plasma creatine kinase MB measurement (mass/volume)2019-09-25 11:00:00* Test Item Value Reference Range Interpretation Comments Creatine Kinase MB (test code = 76570-3) 2.00 0-5.0 [facility] CampusTroponin I measurement by highly sensitive enzyme dbxcmhosazs4034-78-03 11:00:00* Test Item Value Reference Range Interpretation Comments Troponin I (test code = 93028-0) < 0.001 0-0.300 [facility] Regionalerum or plasma lipase measurement (enzymatic activity/volume)2019-09-25 11:00:00* Test Item Value Reference Range Interpretation Comments Lipase (test code = 3040-3) 31 8-78 [facility] CampusCHEST SINGLE (PORTABLE)2019-09-23 10:22:00 [facility] [address] [place] [address] Patient Name: DBEORAH AGUERO MR #: [id number] : 1955 Age/Sex: 64/F Req #: [id number] Adm Physician: STORMY RYAN MD Ordered by: STORMY RYAN MD Report #: [id number] [facility] Procedure: [id number] DX/CHEST SINGLE ( PORTABLE) Exam Date: 09/23/19 [...] COPY TO: STORMY RYAN MD CT ABDOMEN/PELVIS [id number] 16:28:00 [place] [address] Patient Name: DEBORAH AGUERO MR #: [id number] : 1955 Age/Sex: 64/F Req #: [id number] Adm Physician: STORMY RYAN MD Ordered by: STORMY RYAN MD Report #: [id number] Location: MED/SURG2 Room/Bed: [facility] Procedure: [id number] CT/CT ABDOMEN/PEL VIS W Exam Date: 09/22/19 [...] Right and left lower lobe dependent subsegmen iguseppe atelectasis. Right greater than left small bilateral [...] 4:35 PM Dictated By: JESSICA RAMIREZ MD 1635 COPY TO: CARL RYAN MD Serum or plasma thyrotropin measurement by detection limit <= 0.005 miu/l (units/volume)2019-09-22 05:10:00* Test Item Value Reference Range Interpretation Comments Thyroid Stimulating Hormone (TSH) (test code = 76021-8) 3.619 0.350-4.940 [facility] Regionalerum or plasma thyrotropin measurement by detection limit <= 0.005 miu/l (units/volume)2019-09-22 05:10:00* Test Item Value Reference Range Interpretation Comments Thyroid Stimulating Hormone (TSH) (test code = 40617-2) 3.619 0.350-4.940 [facility] Regionalerum or plasma thyrotropin measurement by detection limit <= 0.005 miu/l (units/volume)2019-09-22 05:10:00* Test Item Value Reference Range Interpretation Comments Thyroid Stimulating Hormone (TSH) (test code = 59958-4) 3.619 0.350-4.940 [facility] CampusCT ABDOMEN/PELVIS [id number] 23:54:00 [facility] [address] [place] [address] Patient Name: DEBORAH AGUERO MR #: [id number] : 1955 Age/Sex: 64/F Req #: [id number] Adm Physician: Ordered by: RAMU PATEL MD Report #: [id number] Location: ER Room/Bed: Procedure: [id number] CT/CT ABDOMEN/PELVIS WO Exam Date: 09/20/19 Exam Ti me: 2325 REPORT STATUS: Signed E XAM: CT Abdomen and Pelvis WITHOUT contrast INDICATION: mike wise ever [id number] 2324 Y COMPARISON: None. TECHNIQUE: Abdomen and [...] COPY TO: RAMU PATEL MD Bacterial urine ceriosw1822-91-37 23:18:00* Test Item Value Reference Range Interpretation Comments Urine Culture (test code = 630-4) STAPHYLOCOCCUS AUREUS [facility] CampusBacterial urine fiasway3215-48-48 23:18:00* Test Item Value Reference Range Interpretation Comments Urine Culture (test code = 630-4) STAPHYLOCOCCUS AUREUS [facility] CampusBacterial urine rwckaug2909-98-70 23:18:00* Test Item Value Reference Range Interpretation Comments Urine Culture (test code = 630-4) STAPHYLOCOCCUS AUREUS [facility] CampusFluoroscopic procedure less than one hour fpjmrxsv3623-94-99 22:40:00* Test Item Value Reference Range Interpretation Comments Lactic Acid Level (test code = Lactic Acid Level) 1.8 0.5- 2.0 [facility] CampusFluoroscopic procedure less than one hour ywwbnzuj9701-21-32 22:40:00* Test Item Value Reference Range Interpretation Comments Lactic Acid Level (test code = Lactic Acid Level) 1.8 0.5- 2.0 [facility] CampusFluoroscopic procedure less than one hour skatuqdp1808-88-51 22:40:00* Test Item Value Reference Range Interpretation Comments Lactic Acid Level (test code = Lactic Acid Level) 1.8 0.5- 2.0 [facility] CampusCHEST SINGLE (PORTABLE)2019-09-20 22:05:00 [place] [address] Patient Name: DEBORAH AGUERO MR #: [id number] : 1955 Age/Sex: 64/F Req #: [id number] Adm Physician: Ordered by: RAMU PATEL MD Report #: [id number] Location: ER Room/Bed: Procedure: [id number] DX/CHEST SINGLE (PORTABLE) Exam Date: 09/20/19 Exam Time: 2139 REPORT STATUS: Signed EXAMINATION: CHEST SINGLE (PORTABLE) INDICATION: fever 2 [id number] Y COMPARISON: None FINDINGS: AP view TUBES [...] 09/20/192205 COPY TO: RAMU PATEL MD Blood moiwhvl0670-89-67 21:42:00* Test Item Value Reference Range Interpretation Comments Blood Culture (test code = 22593017) NO GROWTH AFTER 5 DAYS, FINAL REPORT [facility] CampusBlood ltcyney5396-17-78 21:42:00* Test Item Value Reference Range Interpretation Comments Blood Culture (test code = 68554197) NO GROWTH AFTER 5 DAYS, FINAL REPORT [facility] CampusBlood hwkrarr4457-70-48 21:42:00* Test Item Value Reference Range Interpretation Comments Blood Culture (test code = 52136838) NO GROWTH AFTER 5 DAYS, FINAL REPORT [facility] CampusActivated partial thromboplastin time (aPTT) in platelet poor plasma by coagulation zaqgr6521-48-02 21:25:00* Test Item Value Reference Range Interpretation Comments Activated Partial Thromboplast Time (test code = 83441-3) 35.4 23.8-35.5 [facility]-jFew3383-57-81 21:25:00* Test Item Value Reference Range Interpretation Comments Ammonia (test code = 40343-9) 117 -123 [facility] Regionaler[facility] or plasma amylase measurement (enzymatic activity/volume)2019-09-20 21:25:00* Test Item Value Reference Range Interpretation Comments Amylase Level (test code = 1798-8) 33 [facility] CampusActivated partial thromboplastin time (aPTT) in platelet poor plasma by coagulation echca4031-50-45 21:25:00* Test Item Value Reference Range Interpretation Comments Activated Partial Thromboplast Time (test code = 90956-0) 35.4 23.8-35.5 [facility]2020-04-27 21:25:00* Test Item Value Reference Range Interpretation Comments Ammonia (test code = 08733-6) 117 - [facility] Regionalerum or plasma amylase measurement (enzymatic activity/volume)2019-09-20 21:25:00* Test Item Value Reference Range Interpretation Comments Amylase Level (test code = 1798-8) 33 [facility] CampusActivated partial thromboplastin time (aPTT) in platelet poor plasma by coagulation ohwit0595-43-47 21:25:00* Test Item Value Reference Range Interpretation Comments Activated Partial Thromboplast Time (test code = 11726-8) 35.4 23.8-35.5 [facility]2020-04-27 21:25:00* Test Item Value Reference Range Interpretation Comments Ammonia (test code = 75521-3) 117 - [facility] Regionalerum or plasma amylase measurement (enzymatic activity/volume)2019-09-20 21:25:00* Test Item Value Reference Range Interpretation Comments Amylase Level (test code = 1798-8) 33 [facility] CampusBedside Dnafyan8564-03-06 11:31:00* Test Item Value Reference Range Interpretation Comments Bedside Glucose (test code = 94547-5) 296 70-120 H Meter ID: [id number] [facility] CampusNeutrophils % (Manual)2019-07-21 10:20:00* Test Item Value Reference Range Interpretation Comments Neutrophils % (Manual) (test code = 67951-4) 67 40-74 [facility] CampusLymphocytes % (Manual)2019-07-21 10:20:00 * Test Item Value Reference Range Interpretation Comments Lymphocytes % (Manual) (test code = 737-7) 20 19-48 [facility] CampusMonocytes % (Manual)2019-07-21 10:20:00* Test Item Value Reference Range Interpretation Comments Monocytes % (Manual) (test code = 744-3) 10 3.4-9.0 H [facility] CampusEosinophils % (Manual)2019-07-21 10:20:00 * Test Item Value Reference Range Interpretation Comments Eosinophils % (Manual) (test code = 714-6) 3 0-7 [facility] CampusUS ABDOMEN GLCLZPX3457-32-16 09:10:00 [place] [address] Patient Name: DEBORAH AGUERO MR #: [id number] : 1955 Age/Sex: 63/F Req #: [id number] Adm Physician: STORMY RYAN MD Ordered by: MARKO HOLLINS [employer]AD HOUSEKEEPER Report #: [id number] Location: [facility] Room/Bed: [facility] Procedure: [id number] US/U S ABDOMEN LIMITED Exam Date: 07/21/19 [...] LIV on 07/21/19909 COPY TO: MARKO HOLLINS NP Differential Total Cells Sknzmlw0810-14-90 09:00:00* Test Item Value Reference Range Interpretation Comments Differential Total Cells Counted (test code = Differrosetta tial Total Cells Counted) 100 [facility] CampusPlatelet Bxidnsmu8810-41-98 09:00:00* Test Item Value Reference Range Interpretation Comments Platelet Estimate (test code = 27423-1) SLIGHTLY DECREASED [facility] CampusPlatelet Morphology Ydlvgss9652-46-39 09:00:00* Test Item Value Reference Range Interpretation Comments Platelet Morphology Comment (test code = 83308-4) NORMAL [facility] CampusAnisocytosis2020-02-26 09:00:00* Test Item Value Reference Range Interpretation Comments Anisocytosis (test code = 702-1) SLIGHT [facility] CampusMacrocytosis2020-02-26 09:00:00* Test Item Value Reference Range Interpretation Comments Macrocytosis (test code = 738-5) SLIGHT [facility] CampusRed Cell Morphology Qzenubf4468-27-69 09:00:00* Test Item Value Reference Range Interpretation Comments Red Cell Morphology Comment (test code = 6742-1) NORMAL [facility] Regionalodium Mcxkq8208-16-82 06:52:00* Test Item Value Reference Range Interpretation Comments Sodium Level (test code = 2951-2) 138 136-145 [facility] CampusPotassium Zuehw6867-43-45 06:52:00* Test Item Value Reference Range Interpretation Comments Potassium Level (test code = 2823-3) 3.6 3.5-5.1 [facility] CampusChloride Iixxg5514-95-69 06:52:00* Test Item Value Reference Range Interpretation Comments Chloride Level (test code = 2075-0) 106 98-107 [facility] CampusCarbon Dioxide Pdzyq2933-73-83 06:52:00* Test Item Value Reference Range Interpretation Comments Carbon Dioxide Level (test code = 2028-9) 27 - [facility] CampusAnion Fee6984-48-98 06:52:00* Test Item Value Reference Range Interpretation Comments Anion Gap (test code = 11876-3) 8.6 8-16 [facility] CampusBlood Urea Xxolzjri9433-22-53 06:52:00* Test Item Value Reference Range Interpretation Comments Blood Urea Nitrogen (test code = 3094-0) 14 - [facility] CampusCreatinine2020-02-26 06:52:00* Test Item Value Reference Range Interpretation Comments Creatinine (test code = 2160-0) 0.98 0.57-1.11 [facility] [facility] CampusBUN/Creatinine Qjjvn0100-06-61 06:52:00* Test Item Value Reference Range Interpretation Comments BUN/Creatinine Ratio (test code = 3097-3) 14 - [facility] CampusEstimat Glomerular Filtration Rate 2019-07-21 06:52:00* Test Item Value Reference Range Interpretation Comments Estimat Glomerular Filtration Rate (test code = 776813878) 57 >60 L Ranges were taken from the National Kidney Disease Education Program and the [facility] literature.Reference ranges:60 or greater: Aupnkd26-76 ( for 3 consecutive months): Chronic kidney disease 15 or less: Kidney failureThe [facility] of [facility] CampusGlucose Hmnxm5655-53-62 06:52:00* Test Item Value Reference Range Interpretation Comments Glucose Level (test code = QKF2133) 210 74-118 H [facility] CampusCalcium Olwys2942-69-96 06:52:00* Test Item Value Reference Range Interpretation Comments Calcium Level (test code = 17937-9) 8.5 8.4-10.2 [facility] CampusTotal Afuqufmjy3584-62-18 06:52:00* Test Item Value Reference Range Interpretation Comments Total Bilirubin (test code = 1975-2) 3.4 0.2-1.2 H [facility] CampusAspartate Amino Transf (AST/SGOT) 2019-07-21 06:52:00* Test Item Value Reference Range Interpretation Comments Aspartate Amino Transf (AST/SGOT) (test code = Aspartate Amino Transf (AST/SGOT)) 32 5-34 [facility] CampusAlanine Aminotransferase (ALT/SGPT) 2019-07-21 06:52:00* Test Item Value Reference Range Interpretation Comments Alanine Aminotransferase (ALT/SGPT) (test code = 1742-6) 35 0-55 [facility] CampusTotal Xcrrwne0777-20-38 06:52:00* Test Item Value Reference Range Interpretation Comments Total Protein (test code = 2885-2) 5.5 6.5-8.1 L [facility] CampusAlbumin2020-02-26 06:52:00* Test Item Value Reference Range Interpretation Comments Albumin (test code = 1751-7) 2.1 3.5-5.0 L [facility] CampusGlobulin2020-02-26 06:52:00* Test Item Value Reference Range Interpretation Comments Globulin (test code = 24359-5) 3.4 2.3-3.5 [facility] CampusAlbumin/Globulin Hvutw7029-38-92 06:52:00 * Test Item Value Reference Range Interpretation Comments Albumin/Globulin Ratio (test code = 1759-0) 0.6 0.8-2.0 L [facility] CampusAlkaline Iyavkbhgpwd0883-41-32 06:52:00* Test Item Value Reference Range Interpretation Comments Alkaline Phosphatase (test code = 6768-6) 330 40-150 H [facility] CampusWhite Blood Xzlue3870-56-11 06:23:00* Test Item Value Reference Range Interpretation Comments White Blood Count (test code = 6690-2) 10.25 4.8-10.8 [facility] CampusRed Blood Ztokw6409-38-41 06:23:00* Test Item Value Reference Range Interpretation Comments Red Blood Count (test code = 789-8) 3.97 3.6-5.1 [facility] CampusHemoglobin2020-02-26 06:23:00* Test Item Value Reference Range Interpretation Comments Hemoglobin (test code = 97987-9) 13.4 12.0-16.0 [facility] CampusHematocrit2020-02-26 06:23:00* Test Item Value Reference Range Interpretation Comments Hematocrit (test code = 4544-3) 40.0 34.2-44.1 [facility] CampusMean Corpuscular Evxdvh3492-32-35 06:23:00* Test Item Value Reference Range Interpretation Comments Mean Corpuscular Volume (test code = 787-2) 100.8 81-99 H [facility] CampusMean Corpuscular Ptrwebtxxn7935-00-00 06:23:00* Test Item Value Reference Range Interpretation Comments Mean Corpuscular Hemoglobin (test code = 785-6) 33.8 28-32 H [facility] CampusMean Corpuscular Hemoglobin Concent 2019-07-21 06:23:00* Test Item Value Reference Range Interpretation Comments Mean Corpuscular Hemoglobin Concent (test code = 786-4) 33.5 31-35 [facility] CampusRed Cell Distribution Rbzkd3911-11-62 06:23:00* Test Item Value Reference Range Interpretation Comments Red Cell Distribution Width (test code = 69874-0) 15.8 11.7 -14.4 H [facility] CampusPlatelet Jexqs6794-35-92 06:23:00* Test Item Value Reference Range Interpretation Comments Platelet Count (test code = 777-3) 74 140-360 L [facility] CampusNeutrophils (%) (Auto)2019-07-21 06:23:00 * Test Item Value Reference Range Interpretation Comments Neutrophils (%) (Auto) (test code = 55275-7) 61.5 38.7-80.0 [facility] CampusLymphocytes (%) (Auto)2019-07-21 06:23:00 * Test Item Value Reference Range Interpretation Comments Lymphocytes (%) (Auto) (test code = 736-9) 20.4 18.0-39.1 [facility] CampusMonocytes (%) (Auto)2019-07-21 06:23:00* Test Item Value Reference Range Interpretation Comments Monocytes (%) (Auto) (test code = 5905-5) 10.1 4.4-11.3 [facility] CampusEosinophils (%) (Auto)2019-07-21 06:23:00 * Test Item Value Reference Range Interpretation Comments Eosinophils (%) (Auto) (test code = 713-8) 4.4 0.0-6.0 [facility] CampusBasophils (%) (Auto)2019-07-21 06:23:00* Test Item Value Reference Range Interpretation Comments Basophils (%) (Auto) (test code = 706-2) 0.6 0.0-1.0 [facility] CampusIM GRANULOCYTES %2019-07-21 06:23:00* Test Item Value Reference Range Interpretation Comments IM GRANULOCYTES % (test code = IM GRANULOCYTES %) 3.0 0.0- 1.0 H [facility] CampusNeutrophils # (Auto)2019-07-21 06:23:00* Test Item Value Reference Range Interpretation Comments Neutrophils # (Auto) (test code = 751-8) 6.3 2.1-6.9 [facility] CampusLymphocytes # (Auto)2019-07-21 06:23:00* Test Item Value Reference Range Interpretation Comments Lymphocytes # (Auto) (test code = 97295-1) 2.1 1.0-3.2 [facility] CampusMonocytes # (Auto)2019-07-21 06:23:00* Test Item Value Reference Range Interpretation Comments Monocytes # (Auto) (test code = 742-7) 1.0 0.2-0.8 H [facility] CampusEosinophils # (Auto)2019-07-21 06:23:00* Test Item Value Reference Range Interpretation Comments Eosinophils # (Auto) (test code = 711-2) 0.5 0.0-0.4 H [facility] CampusBasophils # (Auto)2019-07-21 06:23:00* Test Item Value Reference Range Interpretation Comments Basophils # (Auto) (test code = 704-7) 0.1 0.0-0.1 [facility] CampusAbsolute Immature Granulocyte (auto 2019-07-21 06:23:00* Test Item Value Reference Range Interpretation Comments Absolute Immature Granulocyte (auto ([place] t code = Absolute Immature Granulocyte (auto) 0.31 0-0.1 H [facility] CampusFluoroscopic procedure less than one hour gmqeifdt9748-54-98 04:40:00* Test Item Value Reference Range Interpretation Comments Differential Total Cells Counted (test code = Toribio tial Total Cells Counted) 100 [facility] blood neutrophils/100 leukocytes 2019-07-21 04:40:00* Test Item Value Reference Range Interpretation Comments Neutrophils % (Manual) (test code = 29639-1) 67 40-74 [facility] blood lymphocytes/100 leukocytes 2019-07-21 04:40:00* Test Item Value Reference Range Interpretation Comments Lymphocytes % (Manual) (test code = 737-7) 20 19-48 [facility] blood monocytes/100 leukocytes 2019-07-21 04:40:00* Test Item Value Reference Range Interpretation Comments Monocytes % (Manual) (test code = 744-3) 10 3.4-9.0 [facility] blood eosinophil count as percentage of total zrkczryeds1624-76-09 04:40:00* Test Item Value Reference Range Interpretation Comments Eosinophils % (Manual) (test code = 714-6) 3 0-7 [facility] CampusBlood platelets count by estimate (number/volume)2019-07-21 04:40:00* Test Item Value Reference Range Interpretation Comments Platelet Estimate (test code = 16990-8) SLIGHTLY DECREASED [facility] CampusPlatelet sdntzhevjb5224-03-63 04:40:00* Test Item Value Reference Range Interpretation Comments Platelet Morphology Comment (test code = 94051-8) NORMAL [facility] anisocytosis detection by light tlbzolxipt5558-06-06 04:40:00* Test Item Value Reference Range Interpretation Comments Anisocytosis (test code = 702-1) SLIGHT [facility] CampusBlhutchinson health hospital macrocytes detection by light uzxjourefp6630-96-61 04:40:00* Test Item Value Reference Range Interpretation Comments Macrocytosis (test code = 738-5) SLIGHT [facility] CampusRB onioibuntl4373-43-68 04:40:00* Test Item Value Reference Range Interpretation Comments Red Cell Morphology Comment (test code = 6742-1) NORMAL [facility] CampusFluoroscopic procedure less than one hour bcxgmial6039-43-70 04:40:00* Test Item Value Reference Range Interpretation Comments Differential Total Cells Counted (test code = Toribio tial Total Cells Counted) 100 [facility] blood neutrophils/100 leukocytes 2019-07-21 04:40:00* Test Item Value Reference Range Interpretation Comments Neutrophils % (Manual) (test code = 76643-9) 67 40-74 [facility] blood lymphocytes/100 leukocytes 2019-07-21 04:40:00* Test Item Value Reference Range Interpretation Comments Lymphocytes % (Manual) (test code = 737-7) 20 19-48 [facility] blood monocytes/100 leukocytes 2019-07-21 04:40:00* Test Item Value Reference Range Interpretation Comments Monocytes % (Manual) (test code = 744-3) 10 3.4-9.0 [facility] blood eosinophil count as percentage of total uvufdvkwlk1474-56-23 04:40:00* Test Item Value Reference Range Interpretation Comments Eosinophils % (Manual) (test code = 714-6) 3 0-7 [facility] platelets count by estimate (number/volume)2019-07-21 04:40:00* Test Item Value Reference Range Interpretation Comments Platelet Estimate (test code = 20138-3) SLIGHTLY DECREASED [facility] CampusPlatelet malqlnwyag3404-89-06 04:40:00* Test Item Value Reference Range Interpretation Comments Platelet Morphology Comment (test code = 51544-2) NORMAL [facility] anisocytosis detection by light mkiypubpif2112-01-75 04:40:00* Test Item Value Reference Range Interpretation Comments Anisocytosis (test code = 702-1) SLIGHT [facility] CampusBlhutchinson health hospital macrocytes detection by light jgajtmjqvi4599-28-09 04:40:00* Test Item Value Reference Range Interpretation Comments Macrocytosis (test code = 738-5) SLIGHT [facility] CampusRB pvdcgbafwt8949-40-32 04:40:00* Test Item Value Reference Range Interpretation Comments Red Cell Morphology Comment (test code = 6742-1) NORMAL [facility] CampusFluoroscopic procedure less than one hour equnvcjn0915-65-64 04:40:00* Test Item Value Reference Range Interpretation Comments Differential Total Cells Counted (test code = Toribio tial Total Cells Counted) 100 [facility] blood neutrophils/100 leukocytes 2019-07-21 04:40:00* Test Item Value Reference Range Interpretation Comments Neutrophils % (Manual) (test code = 96078-9) 67 40-74 [facility] blood lymphocytes/100 leukocytes 2019-07-21 04:40:00* Test Item Value Reference Range Interpretation Comments Lymphocytes % (Manual) (test code = 737-7) 20 19-48 [facility] blood monocytes/100 leukocytes 2019-07-21 04:40:00* Test Item Value Reference Range Interpretation Comments Monocytes % (Manual) (test code = 744-3) 10 3.4-9.0 [facility] blood eosinophil count as percentage of total jfbdxujstp2476-51-07 04:40:00* Test Item Value Reference Range Interpretation Comments Eosinophils % (Manual) (test code = 714-6) 3 0-7 [facility] platelets count by estimate (number/volume)2019-07-21 04:40:00* Test Item Value Reference Range Interpretation Comments Platelet Estimate (test code = 93382-0) SLIGHTLY DECREASED [facility] CampusPlatelet vnfdorcglo1072-39-10 04:40:00* Test Item Value Reference Range Interpretation Comments Platelet Morphology Comment (test code = 74905-5) NORMAL [facility] anisocytosis detection by light xalucobrhk3203-05-20 04:40:00* Test Item Value Reference Range Interpretation Comments Anisocytosis (test code = 702-1) SLIGHT [facility] CampusBlood macrocytes detection by light vsmzkehhyb6016-61-66 04:40:00* Test Item Value Reference Range Interpretation Comments Macrocytosis (test code = 738-5) SLIGHT [facility] CampusRBC dvtdukcesd7708-81-08 04:40:00* Test Item Value Reference Range Interpretation Comments Red Cell Morphology Comment (test code = 6742-1) NORMAL [facility] CampusAmmonia2020-02-25 17:29:00* Test Item Value Reference Range Interpretation Comments Ammonia (test code = 33672-7) 159 31-123 H [facility] CampusCreatine Kinase TI1439-78-92 07:23:00* Test Item Value Reference Range Interpretation Comments Creatine Kinase MB (test code = 45597-4) 2.00 0-5.0 [facility] CampusTroponin V1446-08-60 07:23:00* Test Item Value Reference Range Interpretation Comments Troponin I (test code = FDY3074) 0.010 0-0.300 [facility] CampusCreatine Gzwatn5616-75-41 07:01:00* Test Item Value Reference Range Interpretation Comments Creatine Kinase (test code = 2157-6) 81 29-168 [facility] CampusPhosphorus Jmsfs7076-75-70 06:44:00* Test Item Value Reference Range Interpretation Comments Phosphorus Level (test code = EQC9570) 2.3 2.3-4.7 [facility] CampusMagnesium Cyiin4176-55-55 06:44:00* Test Item Value Reference Range Interpretation Comments Magnesium Level (test code = 15542-0) 1.8 1.3-2.1 [facility] CampusCHEST SINGLE (PORTABLE)2019-07-20 05:37:00 [facility] [address] [address] Patient Name: DEBORAH AGUERO MR #: [id number] : 1955 Age/Sex: 63/F Req #: [id number] Adm Physician: STORMY RYAN MD Ordered by: ANSON TELLES LEAD HOUSEKEEPER Report #: [id number] Location: MED/SURG3 Room/Bed: 293-1 Procedure: [id number] DX/ CHEST SINGLE (PORTABLE) Exam Date: Exam [...] on 07/20/19537 Transcribed By: LIV on 07/20/19 38 COPY TO: ANSON TELLES NP Phosphorus auobjhcwsgh0419-75-02 04:40:00* Test Item Value Reference Range Interpretation Comments Phosphorus Level (test code = WAU1383) 2.3 2.3-4.7 [facility] CampusPhosphorus fpqdsolhkeq6877-36-15 04:40:00 * Test Item Value Reference Range Interpretation Comments Phosphorus Level (test code = FPV2882) 2.3 2.3-4.7 [facility] CampusPhosphorus dwlqwoofvji2157-77-78 04:40:00 * Test Item Value Reference Range Interpretation Comments Phosphorus Level (test code = HHB5909) 2.3 2.3-4.7 [facility] I6875-62-11 20:03:00 [facility] [address] [address] Patient Name: DEBORAH AGUERO MR #: [id number] : 1955 Age/Sex: 63/F Req #: [id number] Adm Physician: STORMY RYAN MD Ordered by: ANSON TELLES NP Report #: [id number] Location: [facility] Room/Bed: [address] [address] Procedure: [id number] CT/ CT ABDOMEN/PELVIS W Exam Date: 07/19/19 [...] COPY TO: ANSON TELLES NP B-Type Natriuretic Dodhmqe4995-28-15 17:45:00* Test Item Value Reference Range Interpretation Comments B-Type Natriuretic Peptide (test code = 32860-9) 228.0 0-100 H [facility] CenterCHES [facility]LE ([facility])2019-07-19 17:19:00 [address] [address] Patient Name: DEBORAH AGUERO MR #: [id number] : 1955 Age/Sex: 63/F Req #: [id number] Adm Physician: Ordered by: ANSON TELLES NP Report #: [id number] Location: ER Room/Bed: Procedure: [id number] DX/C HEST SINGLE (PORTABLE) Exam Date: 07/19/19 [...] ly Signed By: JESSICA RAMIREZ MD on 07/19/19 1720 Transcribed By: LIV on 0 1720 COPY TO: ANSON TELLES NP Prothrombin Tmtc2892-41-59 17:02:00* Test Item Value Reference Range Interpretation Comments Prothrombin Time (test code = 5902-2) 21.1 11.9-14.5 H [facility] CampusProthromb Time International Ratio 2019-07-19 17:02:00* Test Item Value Reference Range Interpretation Comments Prothromb Time International Ratio (test code = 6301-6) 1.69 Oral Anticoagulant Therapy INR Values:1. Low Intensity Therapy 1.5 - 2.02 . Moderate Intensity Therapy 2.0 - 3.03. High Intensity Therapy(1) 2.5 - 3. 54. High Intensity Therapy(2) 3.0 - 4.05. Panic Value INR > 5.0 [facility] CampusActivated Partial Thromboplast Time 2019-07-19 17:02:00* Test Item Value Reference Range Interpretation Comments Activated Partial Thromboplast Time (test code = 11037-2) 30.0 23.8-35.5 [facility] CampusUrine LZG1050-85-58 16:46:00* Test Item Value Reference Range Interpretation Comments Urine WBC (test code = 5821-4) 0-5 0-5 [facility] CampusUrine MHB7081-27-89 16:46:00* Test Item Value Reference Range Interpretation Comments Urine RBC (test code = 50193-7) 0-5 0-5 [facility] CampusUrine Louqitcx0959-80-80 16:46:00* Test Item Value Reference Range Interpretation Comments Urine Bacteria (test code = 04926-6) NONE NONE [facility] CampusUrine Epithelial Qislu1529-83-40 16:46:00 * Test Item Value Reference Range Interpretation Comments Urine Epithelial Cells (test code = 37512-6) FEW NONE [facility] CampusUrine Transitional Epithelial Cells 2019-07-19 16:46:00* Test Item Value Reference Range Interpretation Comments Urine Transitional Epithelial Cells (test code = 8249-5) RARE NONE H [facility] CampusUrine Qtoxw9646-88-67 16:35:00* Test Item Value Reference Range Interpretation Comments Urine Color (test code = 5778-6) YELLOW YELLOW [facility] CampusUrine Jojolpd5332-20-64 16:35:00* Test Item Value Reference Range Interpretation Comments Urine Clarity (test code = 06469-5) SL CLOUDY CLEAR [facility] CampusUrine Specific Lcjwejj7330-63-29 16:35:00 * Test Item Value Reference Range Interpretation Comments Urine Specific [place] (test code = 5811-5) 1.020 1.010-1.02 5 [facility] CampusUrine hB8552-78-09 16:35:00* Test Item Value Reference Range Interpretation Comments Urine pH (test code = 37746-0) 7 5-7 [facility] CampusUrine Leukocyte Jaikfsxj7114-55-95 16:35:00* Test Item Value Reference Range Interpretation Comments Urine Leukocyte Esterase (test code = 5799-2) NEGATIVE NEGATIVE [facility] CampusUrine Wzijtcf6741-83-47 16:35:00* Test Item Value Reference Range Interpretation Comments Urine Nitrite (test code = 04139-1) NEGATIVE NEGATIVE [facility] CampusUrine Veafuju1939-40-60 16:35:00* Test Item Value Reference Range Interpretation Comments Urine Protein (test code = 5804-0) NEGATIVE NEGATIVE [facility] CampusUrine Glucose (UA)2019-07-19 16:35:00* Test Item Value Reference Range Interpretation Comments Urine Glucose (UA) (test code = 2349-9) 3+ NEGATIVE H [facility] CampusUrine Huuyvmn3714-64-78 16:35:00* Test Item Value Reference Range Interpretation Comments Urine Ketones (test code = 48385-6) NEGATIVE NEGATIVE [facility] CampusUrine Xyexflwtdlrk6815-43-70 16:35:00* Test Item Value Reference Range Interpretation Comments Urine Urobilinogen (test code = 84388-5) 1 0.2-1 [facility] CampusUrine Czkcjjqme2966-74-12 16:35:00* Test Item Value Reference Range Interpretation Comments Urine Bilirubin (test code = 1978-6) NEGATIVE NEGATIVE [facility] CampusUrine Mrrgn6515-65-09 16:35:00* Test Item Value Reference Range Interpretation Comments Urine Blood (test code = 11957-6) TRACE NEGATIVE H [facility] CampusTransitional cells detection in urine sediment by light vcgbpbolgy3251-75-84 14:13:00* Test Item Value Reference Range Interpretation Comments Urine Transitional Epithelial Cells (test code = 8249-5) RARE NONE [facility] CampusTransitional cells detection in urine sediment by light pdqiycaqxc9847-44-38 14:13:00* Test Item Value Reference Range Interpretation Comments Urine Transitional Epithelial Cells (test code = 8249-5) RARE NONE [facility] CampusTransitional cells detection in urine sediment by light erghkhfazf5384-34-11 14:13:00* Test Item Value Reference Range Interpretation Comments Urine Transitional Epithelial Cells (test code = 8249-5) RARE NONE [facility] CampusBlood Hiuyxzx0844-10-99 12:42:00* Test Item Value Reference Range Interpretation Comments Blood Culture (test code = 14239663) NO GROWTH AFTER 5 DAYS, FINAL REPORT [facility] CampusBlood Bbbcokz0202-80-56 12:42:00* Test Item Value Reference Range Interpretation Comments Blood Culture (test code = 19542778) NO GROWTH AFTER 24 HOURS [facility] CampusPlatelet Qjpotffo8292-76-99 07:23:00* Test Item Value Reference Range Interpretation Comments Platelet Estimate (test code = 86860-0) MARKEDLY DECREASED [facility] CampusPlatelet Morphology Gjsohbh4577-61-59 07:23:00* Test Item Value Reference Range Interpretation Comments Platelet Morphology Comment (test code = 73333-1) FEW LARGE NO EDTA PLT CLUMPS SEENThe [facility] CampusCHEST SINGLE (PORTABLE)2019-07-14 07:06:00 [facility] [address] [place] [address] Patient Name: DEBORAH AGUERO MR #: [id number] : 1955 Age/Sex: 63/F Req #: [id number] Adm Physician: STORMY RYAN MD Ordered by: ANSON TELLES NP Report #: [id number] Location: [facility] Room/Bed: [place] [address] Procedure: [id number] DX/ CHEST SINGLE (PORTABLE) Exam Date: 07/14/19 Exam [facility] e: 619 REPORT STATUS: Signed EX AMINATION: CHEST SINGLE (PORTABLE) COMPARISON: CT chest 07/13/2019 INDICATION: SOB [id number] DISCUSSION: Frontal view of t he chest [...] SHETH MD 6 COPY TO: MYRIAM TELLES LOIDA LEAD HOUSEKEEPER Sodium Ggbtl7668-47-58 06:41:00* Test Item Value Reference Range Interpretation Comments Sodium Level (test code = 2951-2) 139 136-145 [facility] CampusPotassium Wlosi4855-63-04 06:41:00* Test Item Value Reference Range Interpretation Comments Potassium Level (test code = 2823-3) 4.1 3.5-5.1 [facility] CampusChloride Nzyrj8946-83-43 06:41:00* Test Item Value Reference Range Interpretation Comments Chloride Level (test code = 2075-0) 107 98-107 [facility] CampusCarbon Dioxide Csizi1806-31-12 06:41:00* Test Item Value Reference Range Interpretation Comments Carbon Dioxide Level (test code = 2028-9) 26 22-29 [facility] CampusAnion Kgs6777-63-65 06:41:00* Test Item Value Reference Range Interpretation Comments Anion Gap (test code = 98406-7) 10.1 8-16 [facility] CampusBlood Urea Eeqpeuwq1140-62-79 06:41:00* Test Item Value Reference Range Interpretation Comments Blood Urea Nitrogen (test code = 3094-0) 15 7-26 [facility] CampusCreatinine2020-02-19 06:41:00* Test Item Value Reference Range Interpretation Comments Creatinine (test code = 2160-0) 1.07 0.57-1.11 [facility] CampusBUN/Creatinine Dvpgd0472-77-77 06:41:00* Test Item Value Reference Range Interpretation Comments BUN/Creatinine Ratio (test code = 3097-3) 14 6-25 [facility] CampusEstimat Glomerular Filtration Rate 2019-07-14 06:41:00* Test Item Value Reference Range Interpretation Comments Estimat Glomerular Filtration Rate (test code = 569860115) 51 >60 L Ranges were taken from the National Kidney Disease Education Program and the [facility] literature.Reference ranges:60 or greater: Lyxpaz32-30 ( for 3 consecutive months): Chronic kidney disease 15 or less: Kidney failureThe [facility] of [facility] CampusGlucose Cmswv1880-02-20 06:41:00* Test Item Value Reference Range Interpretation Comments Glucose Level (test code = CKS9487) 213 74-118 H [facility] CampusCalcium Dtuno1273-01-44 06:41:00* Test Item Value Reference Range Interpretation Comments Calcium Level (test code = 15276-6) 8.8 8.4-10.2 [facility] CampusCreatine Aktjsp5061-22-61 06:21:00* Test Item Value Reference Range Interpretation Comments Creatine Kinase (test code = 2157-6) 170 29-168 H [facility] CampusCreatine Kinase XY0261-36-52 06:21:00* Test Item Value Reference Range Interpretation Comments Creatine Kinase MB (test code = 14355-2) 2.00 0-5.0 [facility] CampusTroponin J7564-05-03 06:21:00* Test Item Value Reference Range Interpretation Comments Troponin I (test code = INT6409) < 0.001 0-0.300 [facility] CampusWhite Blood Qcyki5663-83-73 05:35:00* Test Item Value Reference Range Interpretation Comments White Blood Count (test code = 6690-2) 5.62 4.8-10.8 [facility] CampusRed Blood Itdpd2677-59-84 05:35:00* Test Item Value Reference Range Interpretation Comments Red Blood Count (test code = 789-8) 3.99 3.6-5.1 [facility] CampusHemoglobin2020-02-19 05:35:00* Test Item Value Reference Range Interpretation Comments Hemoglobin (test code = 78939-6) 13.3 12.0-16.0 [facility] CampusHematocrit2020-02-19 05:35:00* Test Item Value Reference Range Interpretation Comments Hematocrit (test code = 4544-3) 39.6 34.2-44.1 [facility] CampusMean Corpuscular Fdihuf1742-86-80 05:35:00* Test Item Value Reference Range Interpretation Comments Mean Corpuscular Volume (test code = 787-2) 99.2 81-99 H [facility] CampusMean Corpuscular Ihjmisxizl3549-00-04 05:35:00* Test Item Value Reference Range Interpretation Comments Mean Corpuscular Hemoglobin (test code = 785-6) 33.3 28-32 H [facility] CampusMean Corpuscular Hemoglobin Concent 2019-07-14 05:35:00* Test Item Value Reference Range Interpretation Comments Mean Corpuscular Hemoglobin Concent (test code = 786-4) 33.6 31-35 [facility] CampusRed Cell Distribution Ouaqx1112-35-13 05:35:00* Test Item Value Reference Range Interpretation Comments Red Cell Distribution Width (test code = 19768-9) 15.2 11.7 -14.4 H [facility] CampusPlatelet Fxebl1130-25-19 05:35:00* Test Item Value Reference Range Interpretation Comments Platelet Count (test code = 777-3) 69 140-360 L [facility] CampusNeutrophils (%) (Auto)2019-07-14 05:35:00 * Test Item Value Reference Range Interpretation Comments Neutrophils (%) (Auto) (test code = 93753-8) 47.1 38.7-80.0 [facility] CampusLymphocytes (%) (Auto)2019-07-14 05:35:00 * Test Item Value Reference Range Interpretation Comments Lymphocytes (%) (Auto) (test code = 736-9) 29.0 18.0-39.1 [facility] CampusMonocytes (%) (Auto)2019-07-14 05:35:00* Test Item Value Reference Range Interpretation Comments Monocytes (%) (Auto) (test code = 5905-5) 15.1 4.4-11.3 H [facility] CampusEosinophils (%) (Auto)2019-07-14 05:35:00 * Test Item Value Reference Range Interpretation Comments Eosinophils (%) (Auto) (test code = 713-8) 7.8 0.0-6.0 H [facility] CampusBasophils (%) (Auto)2019-07-14 05:35:00* Test Item Value Reference Range Interpretation Comments Basophils (%) (Auto) (test code = 706-2) 0.5 0.0-1.0 [facility] CampusIM GRANULOCYTES %2019-07-14 05:35:00* Test Item Value Reference Range Interpretation Comments IM GRANULOCYTES % (test code = IM GRANULOCYTES %) 0.5 0.0- 1.0 [facility] CampusNeutrophils # (Auto)2019-07-14 05:35:00* Test Item Value Reference Range Interpretation Comments Neutrophils # (Auto) (test code = 751-8) 2.6 2.1-6.9 [facility] CampusLymphocytes # (Auto)2019-07-14 05:35:00* Test Item Value Reference Range Interpretation Comments Lymphocytes # (Auto) (test code = 38268-9) 1.6 1.0-3.2 [facility] CampusMonocytes # (Auto)2019-07-14 05:35:00* Test Item Value Reference Range Interpretation Comments Monocytes # (Auto) (test code = 742-7) 0.9 0.2-0.8 H [facility] CampusEosinophils # (Auto)2019-07-14 05:35:00* Test Item Value Reference Range Interpretation Comments Eosinophils # (Auto) (test code = 711-2) 0.4 0.0-0.4 [facility] CampusBasophils # (Auto)2019-07-14 05:35:00* Test Item Value Reference Range Interpretation Comments Basophils # (Auto) (test code = 704-7) 0.0 0.0-0.1 [facility] CampusAbsolute Immature Granulocyte (auto 2019-07-14 05:35:00* Test Item Value Reference Range Interpretation Comments Absolute Immature Granulocyte (auto ([place] t code = Absolute Immature Granulocyte (auto) 0.03 0-0.1 [facility] CenterBedside Leesywe7301-12-42 22:30:00* Test Item Value Reference Range Interpretation Comments Bedside Glucose (test code = 53084-2) 326 70-120 H Meter ID: [id number] [facility] of [facility] CampusUS ABDOMEN COMPLETE 2019-07-13 19:35:00 [facility] [address] [place] [address] Patient Name: DEBORAH AGUERO MR #: [id number] : 1955 Age/Sex: 63/F Req #: [id number] Adm Physician: STORMY RYAN MD Ordered by: MARKO HOLLINS LEAD HOUSEKEEPER Report #: [id number] Location: [facility] Room/Bed: [place] [address] Procedure: [id number] US/U S ABDOMEN COMPLETE Exam Date: 07/13/19 Exam Time: REPORT STATUS: Signed ADDENDUM #1 Addendum: Vessels: The aorta and IVC are lar shireen obscured by overlying bowel. Visualized portions unremarkable. Amie d by: Dr. Jaiden Grider M.D. on 07/22/2019 11:22 AM ORIGINAL REPORT * EXAM: US ABDOMEN COMPLETE DATE: 07/13/2019 12:00 AM IND ICATION: ascites [id number] COMPARISON: Chest CT, 07/13 FINDINGS: Grayscale [...] 7:40 PM Dictated By: JAIDEN COLON MD 1122 Transcribed By: LIV on 07/13/191939 COPY TO: MARKO HOLLINS LEAD HOUSEKEEPER CT CHEST Y0010-65-55 15:43:00 [place] [address] Patient Name: DEBORAH AGUERO MR #: [id number] : 1955 Age/Sex: 63/F Req #: [id number] Adm Physician: STORMY RYAN MD Ordered by: NIKOS KEYS DO Report #: [id number] Location: [facility] Room/Bed: [place] [address] Procedure: [id number] CT/CT CHEST W Exam Date: 07/13/19 Exam [...] 3:49 PM Dictated By: DUC RAMIREZ MD 8612 Transcribe d By: LIV on 07/13/19 7019 COPY TO: NIKOS KEYS DO Urine MOZ2097-94-57 14:49:00* Test Item Value Reference Range Interpretation Comments Urine WBC (test code = 5821-4) 11-20 0-5 H [facility] CampusUrine OXL7192-40-44 14:49:00* Test Item Value Reference Range Interpretation Comments Urine RBC (test code = 29142-4) 6-10 0-5 H [facility] CampusUrine Uubjtvuh4065-14-95 14:49:00* Test Item Value Reference Range Interpretation Comments Urine Bacteria (test code = 41716-8) FEW NONE [facility] CampusUrine Epithelial Qlrya5665-56-41 14:49:00 * Test Item Value Reference Range Interpretation Comments Urine Epithelial Cells (test code = 45622-7) FEW NONE [facility] CampusUrine Weefw1556-75-37 14:49:00* Test Item Value Reference Range Interpretation Comments Urine Yeast (test code = 88126-8) FEW NONE H [facility] CampusUrine Qbmaf6631-50-02 14:49:00* Test Item Value Reference Range Interpretation Comments Urine Yeast (test code = 36159-9) FEW NONE H [facility] CampusB-Type Natriuretic Wznytlp6047-85-66 14:34:00* Test Item Value Reference Range Interpretation Comments B-Type Natriuretic Peptide (test code = 57709-8) 300.5 0-100 H [facility] CampusInfluenza Virus Types A,B Antigen 2019-07-13 14:12:00* Test Item Value Reference Range Interpretation Comments Influenza Virus Types A,B Antigen (test code = 07185-2) NEGATIVE NEGATIVE [facility] CampusInfluenza Virus Types A,B Antigen 2019-07-13 14:12:00* Test Item Value Reference Range Interpretation Comments Influenza Virus Types A,B Antigen (test code = 02541-9) NEGATIVE NEGATIVE [facility] CampusUrine Gwjed5246-55-38 14:06:00* Test Item Value Reference Range Interpretation Comments Urine Color (test code = 5778-6) YELLOW YELLOW [facility] CampusUrine Xgewmkg5889-33-41 14:06:00* Test Item Value Reference Range Interpretation Comments Urine Clarity (test code = 05904-5) SL CLOUDY CLEAR [facility] CampusUrine Specific Eabmbht1322-63-74 14:06:00 * Test Item Value Reference Range Interpretation Comments Urine Specific [place] (test code = 5811-5) 1.020 1.010-1.02 5 [facility] CampusUrine xL8729-32-48 14:06:00* Test Item Value Reference Range Interpretation Comments Urine pH (test code = 94455-0) 6 5-7 [facility] CampusUrine Leukocyte Hozkkoaj5023-47-57 14:06:00* Test Item Value Reference Range Interpretation Comments Urine Leukocyte Esterase (test code = 5799-2) NEGATIVE NEGATIVE [facility] CampusUrine Lafmcoq3578-58-93 14:06:00* Test Item Value Reference Range Interpretation Comments Urine Nitrite (test code = 06040-9) NEGATIVE NEGATIVE [facility] CampusUrine Uhtsbxr1536-56-21 14:06:00* Test Item Value Reference Range Interpretation Comments Urine Protein (test code = 5804-0) NEGATIVE NEGATIVE [facility] CampusUrine Glucose (UA)2019-07-13 14:06:00* Test Item Value Reference Range Interpretation Comments Urine Glucose (UA) (test code = 2349-9) 3+ NEGATIVE H [facility] CampusUrine Kwajkyj4758-37-90 14:06:00* Test Item Value Reference Range Interpretation Comments Urine Ketones (test code = 48285-1) NEGATIVE NEGATIVE [facility] CampusUrine Yathercrjvqe0546-46-06 14:06:00* Test Item Value Reference Range Interpretation Comments Urine Urobilinogen (test code = 29917-0) 8 0.2-1 [facility] CampusUrine Ynqkifxxx0952-20-58 14:06:00* Test Item Value Reference Range Interpretation Comments Urine Bilirubin (test code = 1978-6) SMALL NEGATIVE [facility] CampusUrine Kvqxj3657-85-03 14:06:00* Test Item Value Reference Range Interpretation Comments Urine Blood (test code = 45763-6) 1+ NEGATIVE [facility] CampusProthrombin Xstp8915-81-77 14:04:00* Test Item Value Reference Range Interpretation Comments Prothrombin Time (test code = 5902-2) 20.7 11.9-14.5 H [facility] CampusProthromb Time International Ratio 2019-07-13 14:04:00* Test Item Value Reference Range Interpretation Comments Prothromb Time International Ratio (test code = 6301-6) 1.65 Oral Anticoagulant Therapy INR Values:1. Low Intensity Therapy 1.5 - 2.02 . Moderate Intensity Therapy 2.0 - 3.03. High Intensity Therapy(1) 2.5 - 3. 54. High Intensity Therapy(2) 3.0 - 4.05. Panic Value INR > 5.0 [facility] CampusActivated Partial Thromboplast Time 2019-07-13 14:04:00* Test Item Value Reference Range Interpretation Comments Activated Partial Thromboplast Time (test code = 24622-2) 38.7 23.8-35.5 H [facility] CampusCHEST 2 WWZAK6023-50-09 14:01:00 [place] [address] Patient Name: DEBORAH AGUERO MR #: [id number] : 1955 Age/Sex: 63/F Req #: [id number] Adm Physician: Ordered by: ANSON TELLES NP Report #: [id number] Location: ER Room/Bed: Procedure: [id number] DX/C HEST 2 VIEWS Exam Date: 07/13/19 [...] onically Signed By: JESSICA RAMIREZ MD on 07/13/19 1402 Transcribed By: LIV on 0 07/13/19 140 COPY TO: ANSON TELLES NP Total Poeqqblwp5974-95-16 13:25:00* Test Item Value Reference Range Interpretation Comments Total Bilirubin (test code = 1975-2) 4.7 0.2-1.2 H [facility] CampusAspartate Amino Transf (AST/SGOT) 2019-07-13 13:25:00* Test Item Value Reference Range Interpretation Comments Aspartate Amino Transf (AST/SGOT) (test code = Aspartate Amino Transf (AST/SGOT)) 33 5-34 [facility] CampusAlanine Aminotransferase (ALT/SGPT) 2019-07-13 13:25:00* Test Item Value Reference Range Interpretation Comments Alanine Aminotransferase (ALT/SGPT) (test code = 1742-6) 30 0-55 [facility] CampusTotal Gbtzgsg4189-39-05 13:25:00* Test Item Value Reference Range Interpretation Comments Total Protein (test code = 2885-2) 6.3 6.5-8.1 L [facility] CampusAlbumin2020-02-18 13:25:00* Test Item Value Reference Range Interpretation Comments Albumin (test code = 1751-7) 2.3 3.5-5.0 L [facility] CampusGlobulin2020-02-18 13:25:00* Test Item Value Reference Range Interpretation Comments Globulin (test code = 81259-1) 4.0 2.3-3.5 H [facility] CampusAlbumin/Globulin Tdjao4973-50-63 13:25:00 * Test Item Value Reference Range Interpretation Comments Albumin/Globulin Ratio (test code = 1759-0) 0.6 0.8-2.0 L [facility] CampusAlkaline Fhtdkrtyvtj1613-00-72 13:25:00* Test Item Value Reference Range Interpretation Comments Alkaline Phosphatase (test code = 6768-6) 257 40-150 H [facility] CampusYeast detection in urine sediment by light oxhqvrhegd3177-38-72 12:09:00* Test Item Value Reference Range Interpretation Comments Urine Yeast (test code = 07230-7) FEW NONE [facility] CampusInfluenza virus A and B antigen identification by ppaldjeurawraksiru3973-15-26 12:09:00* Test Item Value Reference Range Interpretation Comments Influenza Virus Types A,B Antigen (test code = 92668-8) NEGATIVE NEGATIVE [facility] CampusYeast detection in urine sediment by light kjroqabpdg8634-05-03 12:09:00* Test Item Value Reference Range Interpretation Comments Urine Yeast (test code = 64352-7) FEW NONE [facility] CampusInfluenza virus A and B antigen identification by bnssptgdhzxjezrwyh6950-11-22 12:09:00* Test Item Value Reference Range Interpretation Comments Influenza Virus Types A,B Antigen (test code = 50183-6) NEGATIVE NEGATIVE [facility] CampusYeast detection in urine sediment by light gbfropgtdj2393-39-20 12:09:00* Test Item Value Reference Range Interpretation Comments Urine Yeast (test code = 82929-6) FEW NONE [facility] CampusInfluenza virus A and B antigen identification by fuzulhguktoyiunkxb8998-70-21 12:09:00* Test Item Value Reference Range Interpretation Comments Influenza Virus Types A,B Antigen (test code = 21744-7) NEGATIVE NEGATIVE [facility] CampusPOCT-GLUCOSE CQDPZ7120-68-47 08:32:00* Test Item Value Reference Range Interpretation Comments POC-GLUCOSE METER (BEAKER) (test code = 1538) 297 mg/dL 70-110 H TESTED AT [facility] [address] [facility] [address] POCT-GLUCOSE ZICLK8007-44-44 07:52:00* Test Item Value Reference Range Interpretation Comments POC-GLUCOSE METER (BEAKER) (test code = 1538) 337 mg/dL 70-110 H TESTED AT [facility] [address] [facility] [address] POCT-GLUCOSE GPSXN0363-68-90 06:53:00* Test Item Value Reference Range Interpretation Comments POC-GLUCOSE METER (BEAKER) (test code = 1538) 356 mg/dL 70-110 H TESTED AT [facility] [address] [facility] [address] [address], CHEST, WITHOUT ERTARALH8049-34-61 18:32:00Referring: Dr. Andreas Rooney Reason for exam:->COUGHReason [...] Verified Date/Time: 0 07/27/2018 18:32:17 Reading Location: [facility] C013Y CT Body Reading Room [facility] signed by: ELOY TIDWELL M.D. on 07/27/2018 06:32 PM BASIC METABOLIC [id number] 15:22:00* Test Item Value Reference Range Interpretation [...] Specimen moderately ictericCBC W/PLT COUNT & AUTO TOTKDMIHEUGN2479-76-91 15:10:00* Test Item Value Reference Range Interpretation [...] 2801) 0 % 0-1 RAD, CHEST, 2 APXBP5287-13-78 15:09:00Referring: Dr. Andreas Rooney Reason for exam:->COUGHReason [...] Verified Date/Time: 07/27/2018 1 5:09:12 Reading Location: [facility] B1 C013W Consult Reading Room ALYSIS WITHOUT XVWWXBQSMZT2349-79-46 14:53:00* Test Item Value Reference Range Interpretation [...] 0.2-1.0 SOURCE(BEAKER) (test code = 2795) Urine JDO3663-75-35 15:47:00* Test Item Value Reference Range Interpretation Comments Urine WBC (test code = 5821-4) NONE 0-5 [facility] CampusUrine OWN1788-75-01 15:47:00* Test Item Value Reference Range Interpretation Comments Urine RBC (test code = 16717-2) 0-5 0-5 [facility] CampusUrine Sknjbyyj8196-42-92 15:47:00* Test Item Value Reference Range Interpretation Comments Urine Bacteria (test code = 43275-1) MANY NONE H [facility] CampusUrine Epithelial Cxozs5890-64-63 15:47:00 * Test Item Value Reference Range Interpretation Comments Urine Epithelial Cells (test code = 09684-7) FEW NONE [facility] CampusUrine Amorphous Okvoszcl8957-72-07 15:47:00* Test Item Value Reference Range Interpretation Comments Urine Amorphous Sediment (test code = 8246-1) MODERATE FEW H [facility] CampusUrine Ybxfz9379-08-36 15:39:00* Test Item Value Reference Range Interpretation Comments Urine Color (test code = 5778-6) YELLOW YELLOW [facility] CampusUrine Khusggk4570-13-69 15:39:00* Test Item Value Reference Range Interpretation Comments Urine Clarity (test code = 52967-7) SL CLOUDY CLEAR [facility] CampusUrine Specific Pdncsed4771-21-33 15:39:00 * Test Item Value Reference Range Interpretation Comments Urine Specific [place] (test code = 5811-5) 1.015 1.010-1.02 5 [facility] CampusUrine yL2198-62-32 15:39:00* Test Item Value Reference Range Interpretation Comments Urine pH (test code = 56105-5) 6 5-7 [facility] CampusUrine Leukocyte Xvwpjomz4491-26-07 15:39:00* Test Item Value Reference Range Interpretation Comments Urine Leukocyte Esterase (test code = 5799-2) NEGATIVE NEGATIVE [facility] CampusUrine Cbgfahd4710-53-79 15:39:00* Test Item Value Reference Range Interpretation Comments Urine Nitrite (test code = 93850-0) NEGATIVE NEGATIVE [facility] CampusUrine Tkipspf4776-62-99 15:39:00* Test Item Value Reference Range Interpretation Comments Urine Protein (test code = 5804-0) NEGATIVE NEGATIVE [facility] Glucose (UA)2018-07-10 15:39:00* Test Item Value Reference Range Interpretation Comments Urine Glucose (UA) (test code = 2349-9) 3+ NEGATIVE H [facility] CampusUrine Jkabgqz5450-24-92 15:39:00* Test Item Value Reference Range Interpretation Comments Urine Ketones (test code = 56014-5) NEGATIVE NEGATIVE [facility] Qehsqfhqxyht3330-12-85 15:39:00* Test Item Value Reference Range Interpretation Comments Urine Urobilinogen (test code = 40272-9) 0.2 0.2-1 [facility] CampusUrine Tuwdzwosq4484-12-97 15:39:00* Test Item Value Reference Range Interpretation Comments Urine Bilirubin (test code = 1978-6) NEGATIVE NEGATIVE [facility] CampusUrine Bbaiw3018-61-62 15:39:00* Test Item Value Reference Range Interpretation Comments Urine Blood (test code = 25617-8) 1+ NEGATIVE H [facility]odium Unqzz4096-08-36 15:05:00* Test Item Value Reference Range Interpretation Comments Sodium Level (test code = 2951-2) 142 136-145 [facility] CampusPotassium Dvhgd5375-41-09 15:05:00* Test Item Value Reference Range Interpretation Comments Potassium Level (test code = 2823-3) 4.0 3.5-5.1 [facility] CampusChloride Rzkky6200-13-48 15:05:00* Test Item Value Reference Range Interpretation Comments Chloride Level (test code = 2075-0) 109 98-107 H [facility] CampusCarbon Dioxide Himgp9384-31-24 15:05:00* Test Item Value Reference Range Interpretation Comments Carbon Dioxide Level (test code = 2028-9) 23 22-29 [facility] CampusAnion Uot7368-16-85 15:05:00* Test Item Value Reference Range Interpretation Comments Anion Gap (test code = 35522-0) 14.0 8-16 [facility] CampusBlood Urea Istghxbs2053-40-73 15:05:00* Test Item Value Reference Range Interpretation Comments Blood Urea Nitrogen (test code = 3094-0) 10 7-26 [facility] CampusCreatinine2019-02-15 15:05:00* Test Item Value Reference Range Interpretation Comments Creatinine (test code = 2160-0) 1.05 0.57-1.11 [facility] CampusBUN/Creatinine Zfoem3158-88-17 15:05:00* Test Item Value Reference Range Interpretation Comments BUN/Creatinine Ratio (test code = 3097-3) 10 6-25 [facility] CampusEstimat Glomerular Filtration Rate 2018-07-10 15:05:00* Test Item Value Reference Range Interpretation Comments Estimat Glomerular Filtration Rate (test code = 809356904) 53 >60 L Ranges were taken from the National Kidney Disease Education Program and the [facility] literature.Reference ranges:60 or greater: Iaorat84-58 ( for 3 consecutive months): Chronic kidney disease 15 or less: Kidney failureThe [facility] CampusGlucose Bwulc6846-54-71 15:05:00* Test Item Value Reference Range Interpretation Comments Glucose Level (test code = LRT3658) 303 74-118 H [facility] CampusCalcium Vfaky9892-90-16 15:05:00* Test Item Value Reference Range Interpretation Comments Calcium Level (test code = 50368-6) 8.5 8.4-10.2 [facility] CampusTotal Zuvlwqxuf6787-86-56 15:05:00* Test Item Value Reference Range Interpretation Comments Total Bilirubin (test code = 1975-2) 3.9 0.2-1.2 H [facility] CampusAspartate Amino Transf (AST/SGOT) 2018-07-10 15:05:00* Test Item Value Reference Range Interpretation Comments Aspartate Amino Transf (AST/SGOT) (test code = Aspartate Amino Transf (AST/SGOT)) 32 5-34 [facility] CampusAlanine Aminotransferase (ALT/SGPT) 2018-07-10 15:05:00* Test Item Value Reference Range Interpretation Comments Alanine Aminotransferase (ALT/SGPT) (test code = 1742-6) 23 0-55 [facility] CampusTotal Rljdwpt0065-34-50 15:05:00* Test Item Value Reference Range Interpretation Comments Total Protein (test code = 2885-2) 6.0 6.5-8.1 L [facility] CampusAlbumin2019-02-15 15:05:00* Test Item Value Reference Range Interpretation Comments Albumin (test code = 1751-7) 2.5 3.5-5.0 L [facility] CampusGlobulin2019-02-15 15:05:00* Test Item Value Reference Range Interpretation Comments Globulin (test code = 76315-7) 3.5 2.3-3.5 [facility] CampusAlbumin/Globulin Qinmt7949-58-49 15:05:00 * Test Item Value Reference Range Interpretation Comments Albumin/Globulin Ratio (test code = 1759-0) 0.7 0.8-2.0 L [facility] CampusAlkaline Ksievzltuuq8531-20-90 15:05:00* Test Item Value Reference Range Interpretation Comments Alkaline Phosphatase (test code = 6768-6) 273 40-150 H [facility] CampusB-Type Natriuretic Onpndzt8385-91-13 15:05:00* Test Item Value Reference Range Interpretation Comments B-Type Natriuretic Peptide (test code = 10313-5) 346.9 0-100 H [facility] CampusCreatine Xzfzmh9976-60-42 15:05:00* Test Item Value Reference Range Interpretation Comments Creatine Kinase (test code = 2157-6) 87 29-168 [facility] CampusCreatine Kinase FB5735-98-26 15:05:00* Test Item Value Reference Range Interpretation Comments Creatine Kinase MB (test code = 29190-8) 1.00 0-5.0 [facility] CampusTroponin A5082-55-42 15:05:00* Test Item Value Reference Range Interpretation Comments Troponin I (test code = HJD2113) 0.002 0-0.300 [facility] CampusCHEST 2 TQRXS9418-24-90 14:49:00 [facility] [address] [address] Patient Name: DEBORAH AGUERO MR #: [id number] : 1955 Age/Sex: 62/F Req #: [id number] Adm Physician: Ordered by: ANSON TELLES NP Report #: [id number] Location: ER Room/Bed: Procedure: [id number] DX/CORY ST 2 VIEWS Exam Date: 07/10/18 [...] 07/10/181455 COPY TO: ANSON TELLES NP Prothrombin Dcoz8413-35-01 14:45:00* Test Item Value Reference Range Interpretation Comments Prothrombin Time (test code = 5902-2) 19.6 11.9-14.5 H [facility] CampusProthromb Time International Ratio 2018-07-10 14:45:00* Test Item Value Reference Range Interpretation Comments Prothromb Time International Ratio (test code = 6301-6) 1.52 Oral Anticoagulant Therapy INR Values:1. Low Intensity Therapy 1.5 - 2.02 . Moderate Intensity Therapy 2.0 - 3.03. High Intensity Therapy(1) 2.5 - 3. 54. High Intensity Therapy(2) 3.0 - 4.05. Panic Value INR > 5.0 [facility] CampusActivated Partial Thromboplast Time 2018-07-10 14:45:00* Test Item Value Reference Range Interpretation Comments Activated Partial Thromboplast Time (test code = 61834-1) 39.1 23.8-35.5 H [facility] CampusWhite Blood Ogkdg1846-30-55 12:55:00* Test Item Value Reference Range Interpretation Comments White Blood Count (test code = 6690-2) 5.92 4.8-10.8 [facility] CampusRed Blood Rgiij4644-50-86 12:55:00* Test Item Value Reference Range Interpretation Comments Red Blood Count (test code = 789-8) 4.06 3.6-5.1 [facility] CampusHemoglobin2019-02-15 12:55:00* Test Item Value Reference Range Interpretation Comments Hemoglobin (test code = 95735-6) 12.9 12.0-16.0 [facility] CampusHematocrit2019-02-15 12:55:00* Test Item Value Reference Range Interpretation Comments Hematocrit (test code = 4544-3) 38.9 34.2-44.1 [facility] CampusMean Corpuscular Aboaxv2621-66-56 12:55:00* Test Item Value Reference Range Interpretation Comments Mean Corpuscular Volume (test code = 787-2) 95.8 81-99 [facility] CampusMean Corpuscular Flbdzxecum4955-44-53 12:55:00* Test Item Value Reference Range Interpretation Comments Mean Corpuscular Hemoglobin (test code = 785-6) 31.8 28-32 [facility] CampusMean Corpuscular Hemoglobin Concent 2018-07-10 12:55:00* Test Item Value Reference Range Interpretation Comments Mean Corpuscular Hemoglobin Concent (test code = 786-4) 33.2 31-35 [facility] CampusRed Cell Distribution Ylbew3723-00-61 12:55:00* Test Item Value Reference Range Interpretation Comments Red Cell Distribution Width (test code = 74363-3) 17.1 11.7 -14.4 H [facility] CampusPlatelet Qdyzg4466-88-34 12:55:00* Test Item Value Reference Range Interpretation Comments Platelet Count (test code = 777-3) 112 140-360 L [facility] CampusNeutrophils (%) (Auto)2018-07-10 12:55:00 * Test Item Value Reference Range Interpretation Comments Neutrophils (%) (Auto) (test code = 78657-0) 52.0 38.7-80.0 [facility] CampusLymphocytes (%) (Auto)2018-07-10 12:55:00 * Test Item Value Reference Range Interpretation Comments Lymphocytes (%) (Auto) (test code = 736-9) 25.5 18.0-39.1 [facility] CampusMonocytes (%) (Auto)2018-07-10 12:55:00* Test Item Value Reference Range Interpretation Comments Monocytes (%) (Auto) (test code = 5905-5) 14.0 4.4-11.3 H [facility] CampusEosinophils (%) (Auto)2018-07-10 12:55:00 * Test Item Value Reference Range Interpretation Comments Eosinophils (%) (Auto) (test code = 713-8) 7.6 0.0-6.0 H [facility] CampusBasophils (%) (Auto)2018-07-10 12:55:00* Test Item Value Reference Range Interpretation Comments Basophils (%) (Auto) (test code = 706-2) 0.7 0.0-1.0 [facility] CampusIM GRANULOCYTES %2018-07-10 12:55:00* Test Item Value Reference Range Interpretation Comments IM GRANULOCYTES % (test code = IM GRANULOCYTES %) 0.2 0.0- 1.0 [facility] CampusNeutrophils # (Auto)2018-07-10 12:55:00* Test Item Value Reference Range Interpretation Comments Neutrophils # (Auto) (test code = 751-8) 3.1 2.1-6.9 [facility] CampusLymphocytes # (Auto)2018-07-10 12:55:00* Test Item Value Reference Range Interpretation Comments Lymphocytes # (Auto) (test code = 05594-0) 1.5 1.0-3.2 [facility] CampusMonocytes # (Auto)2018-07-10 12:55:00* Test Item Value Reference Range Interpretation Comments Monocytes # (Auto) (test code = 742-7) 0.8 0.2-0.8 [facility] CampusEosinophils # (Auto)2018-07-10 12:55:00* Test Item Value Reference Range Interpretation Comments Eosinophils # (Auto) (test code = 711-2) 0.5 0.0-0.4 H [facility] CampusBasophils # (Auto)2018-07-10 12:55:00* Test Item Value Reference Range Interpretation Comments Basophils # (Auto) (test code = 704-7) 0.0 0.0-0.1 [facility] CampusAbsolute Immature Granulocyte (auto 2018-07-10 12:55:00* Test Item Value Reference Range Interpretation Comments Absolute Immature Granulocyte (auto ([place] t code = Absolute Immature Granulocyte (auto) 0.01 0-0.1 [facility] CampusBLOOD GAS, VALLNNVD6104-50-99 14:16:00* Test Item Value Reference Range Interpretation [...] 1819) 21.0 % ALPHA FETOPROTEIN (AFP), TUMOR XUNYJX8998-20-51 20:44:00* Test Item Value Reference Range Interpretation Comments ALPHA-FETOPROTEIN (BEAKER) (test code = 1094) 3.0 ng/mL <10.0 BASIC METABOLIC TUORA9553-33-75 18:02:00* Test Item Value Reference Range Interpretation [...] FOR DIALYSIS PATIENTS. Specimen slightly ictericHEPATIC FUNCTION GYTTK7845-32-80 18:02:00* Test Item Value Reference Range Interpretation [...] 6-55 Specimen slightly hemolyzed Specimen slightly ictericPROTHROMBIN TIME/MOF3667-40-94 17:05:00* Test Item Value Reference Range Interpretation [...] mechanical heart valves.CBC W/PLT COUNT & AUTO LXXGJRBUZCTH8531-06-35 16:56:00* Test Item Value Reference Range Interpretation [...] code = 2801) 0 % 0-1 Bedside Fvtedbi3940-17-30 11:56:00* Test Item Value Reference Range Interpretation Comments Bedside Glucose (test code = 67739-1) 267 70-120 H Meter ID: [id number] [facility] CampusBedside Glucose 2017-12-01 11:56:00* Test Item Value Reference Range Interpretation Comments Bedside Glucose (test code = 51899-2) 267 70-120 H Meter ID: [id number] Christi Medical Center – Doctors Regionalodium Level 2017-12-01 06:00:00* Test Item Value Reference Range Interpretation Comments Sodium Level (test code = 2951-2) 142 136-145 [facility] CampusPotassium Yeusm9141-68-98 06:00:00* Test Item Value Reference Range Interpretation Comments Potassium Level (test code = 2823-3) 3.9 3.5-5.1 [facility] CampusChloride Iixrq4465-40-26 06:00:00* Test Item Value Reference Range Interpretation Comments Chloride Level (test code = 2075-0) 114 98-107 H [facility] CampusCarbon Dioxide Dbpuf4150-02-43 06:00:00* Test Item Value Reference Range Interpretation Comments Carbon Dioxide Level (test code = 2028-9) 24 22-29 [facility] CampusAnion Cld8893-39-45 06:00:00* Test Item Value Reference Range Interpretation Comments Anion Gap (test code = 66845-2) 7.9 8-16 L [facility] CampusBlood Urea Atyyzxyc7012-74-29 06:00:00* Test Item Value Reference Range Interpretation Comments Blood Urea Nitrogen (test code = 3094-0) 13 7-26 [facility] CampusCreatinine2018-07-09 06:00:00* Test Item Value Reference Range Interpretation Comments Creatinine (test code = 2160-0) 1.27 0.57-1.11 H [facility] CampusBUN/Creatinine Uuxql1522-60-48 06:00:00* Test Item Value Reference Range Interpretation Comments BUN/Creatinine Ratio (test code = 3097-3) 10 6-25 [facility] CampusEstimat Glomerular Filtration Rate 2017-12-01 06:00:00* Test Item Value Reference Range Interpretation Comments Estimat Glomerular Filtration Rate (test code = 57370-9) 42 >60 L Ranges were taken from the National Kidney Disease Education Program and the [facility] literature.Reference ranges:60 or greater: Bdntad14-99 ( for 3 consecutive months): Chronic kidney disease 15 or less: Kidney failureThe [facility] of [facility] CampusGlucose Gtjzu0125-23-40 06:00:00* Test Item Value Reference Range Interpretation Comments Glucose Level (test code = DWA9624) 243 74-118 H [facility] CampusCalcium Uizup8254-17-44 06:00:00* Test Item Value Reference Range Interpretation Comments Calcium Level (test code = 96092-6) 9.4 8.4-10.2 [facility] CampusTotal Rpqilbfvq7111-65-07 06:00:00* Test Item Value Reference Range Interpretation Comments Total Bilirubin (test code = 1975-2) 2.4 0.2-1.2 H [facility] CampusDirect Tbfpgbobl9993-52-00 06:00:00* Test Item Value Reference Range Interpretation Comments Direct Bilirubin (test code = 21817-9) 0.9 0.0-0.5 H [facility] CampusAspartate Amino Transf (AST/SGOT) 2017-12-01 06:00:00* Test Item Value Reference Range Interpretation Comments Aspartate Amino Transf (AST/SGOT) (test code = Aspartate Amino Transf (AST/SGOT)) 52 5-34 H [facility] CampusAlanine Aminotransferase (ALT/SGPT) 2017-12-01 06:00:00* Test Item Value Reference Range Interpretation Comments Alanine Aminotransferase (ALT/SGPT) (test code = 1742-6) 36 0-55 [facility] CampusTotal Pxthqdy4998-36-68 06:00:00* Test Item Value Reference Range Interpretation Comments Total Protein (test code = 2885-2) 6.2 6.5-8.1 L [facility] CampusAlbumin2018-07-09 06:00:00* Test Item Value Reference Range Interpretation Comments Albumin (test code = 1751-7) 2.5 3.5-5.0 L [facility] CampusAlkaline Ohmdkrvvune1645-07-09 06:00:00* Test Item Value Reference Range Interpretation Comments Alkaline Phosphatase (test code = 6768-6) 216 40-150 H [facility] CampusDirect Bltwxkwov0379-47-00 06:00:00* Test Item Value Reference Range Interpretation Comments Direct Bilirubin (test code = 48059-4) 0.9 0.0-0.5 [facility] 05:48:00* Test Item Value Reference Range Interpretation Comments Ammonia (test code = 26341-2) 117 31-123 [facility]onia2018-07-09 05:48:00* Test Item Value Reference Range Interpretation Comments Ammonia (test code = 97477-0) 117 -123 [facility] CampusWhite Blood Ihaqv5196-03-15 05:26:00* Test Item Value Reference Range Interpretation Comments White Blood Count (test code = 6690-2) 4.62 4.8-10.8 L [facility] CampusRed Blood Wcktm1948-17-37 05:26:00* Test Item Value Reference Range Interpretation Comments Red Blood Count (test code = 789-8) 3.51 3.6-5.1 L [facility] CampusHemoglobin2018-07-09 05:26:00* Test Item Value Reference Range Interpretation Comments Hemoglobin (test code = 18410-0) 11.7 12.0-16.0 L [facility] CampusHematocrit2018-07-09 05:26:00* Test Item Value Reference Range Interpretation Comments Hematocrit (test code = 4544-3) 35.6 34.2-44.1 [facility] CampusMean Corpuscular Raebup1241-03-82 05:26:00* Test Item Value Reference Range Interpretation Comments Mean Corpuscular Volume (test code = 787-2) 101.4 81-99 H [facility] CampusMean Corpuscular Bnnvysuxme6519-44-70 05:26:00* Test Item Value Reference Range Interpretation Comments Mean Corpuscular Hemoglobin (test code = 785-6) 33.3 28-32 H [facility] CampusMean Corpuscular Hemoglobin Concent 2017-12-01 05:26:00* Test Item Value Reference Range Interpretation Comments Mean Corpuscular Hemoglobin Concent (test code = 786-4) 32.9 31-35 [facility] CampusRed Cell Distribution Xpwnk7453-04-53 05:26:00* Test Item Value Reference Range Interpretation Comments Red Cell Distribution Width (test code = 94184-1) 14.6 11.7 -14.4 H [facility] CampusPlatelet Voegc0110-45-81 05:26:00* Test Item Value Reference Range Interpretation Comments Platelet Count (test code = 777-3) 65 140-360 L [facility] CampusNeutrophils (%) (Auto)2017-12-01 05:26:00 * Test Item Value Reference Range Interpretation Comments Neutrophils (%) (Auto) (test code = 78278-8) 46.0 38.7-80.0 [facility] CampusLymphocytes (%) (Auto)2017-12-01 05:26:00 * Test Item Value Reference Range Interpretation Comments Lymphocytes (%) (Auto) (test code = 736-9) 36.1 18.0-39.1 [facility] CampusMonocytes (%) (Auto)2017-12-01 05:26:00* Test Item Value Reference Range Interpretation Comments Monocytes (%) (Auto) (test code = 5905-5) 10.4 4.4-11.3 [facility] CampusEosinophils (%) (Auto)2017-12-01 05:26:00 * Test Item Value Reference Range Interpretation Comments Eosinophils (%) (Auto) (test code = 713-8) 6.9 0.0-6.0 H [facility] CampusBasophils (%) (Auto)2017-12-01 05:26:00* Test Item Value Reference Range Interpretation Comments Basophils (%) (Auto) (test code = 706-2) 0.4 0.0-1.0 [facility] CampusIM GRANULOCYTES %2017-12-01 05:26:00* Test Item Value Reference Range Interpretation Comments IM GRANULOCYTES % (test code = IM GRANULOCYTES %) 0.2 0.0- 1.0 [facility] CampusNeutrophils # (Auto)2017-12-01 05:26:00* Test Item Value Reference Range Interpretation Comments Neutrophils # (Auto) (test code = 751-8) 2.1 2.1-6.9 [facility] CampusLymphocytes # (Auto)2017-12-01 05:26:00* Test Item Value Reference Range Interpretation Comments Lymphocytes # (Auto) (test code = 05267-5) 1.7 1.0-3.2 [facility] CampusMonocytes # (Auto)2017-12-01 05:26:00* Test Item Value Reference Range Interpretation Comments Monocytes # (Auto) (test code = 742-7) 0.5 0.2-0.8 [facility] CampusEosinophils # (Auto)2017-12-01 05:26:00* Test Item Value Reference Range Interpretation Comments Eosinophils # (Auto) (test code = 711-2) 0.3 0.0-0.4 [facility] CampusBasophils # (Auto)2017-12-01 05:26:00* Test Item Value Reference Range Interpretation Comments Basophils # (Auto) (test code = 704-7) 0.0 0.0-0.1 [facility] CampusAbsolute Immature Granulocyte (auto 2017-12-01 05:26:00* Test Item Value Reference Range Interpretation Comments Absolute Immature Granulocyte (auto ([place] t code = Absolute Immature Granulocyte (auto) 0.01 0-0.1 [facility] CampusGlobulin2018-07-08 06:20:00* Test Item Value Reference Range Interpretation Comments Globulin (test code = 17609-1) 3.5 2.3-3.5 [facility] CampusAlbumin/Globulin Xdfan1122-73-00 06:20:00 * Test Item Value Reference Range Interpretation Comments Albumin/Globulin Ratio (test code = 1759-0) 0.7 0.8-2.0 L [facility] CampusCT ABDOMEN/PELVIS LL4433-74-36 19:13:00 [facility] [address] [address] Patient Name: DEBORAH AGUERO MR #: [id number] : 0 1955 Age/Sex: 62/F Req #: [id number] Adm Physician: STORMY RYAN MD Ordered by: STORMY RYAN MD Report #: [id number] Locatio n: MED/SURG2 Room/Bed: [facility] Procedure: [id number] CT/ CT ABDOMEN/PELVIS WO Exam Date: 11/29/17 [...] STORMY RYAN MD CHEST SINGLE (PORTABLE)2017-11-29 05:17:[address] [address] Patient Name: DEBORAH AGUERO MR #: [id number] : 0 1955 Age/Sex: 62/F Req #: [id number] Adm Physician: Ordered by: RAMU PATEL MD Report #: [id number] Location: ER om/Bed: Procedure: [id number] DX/CHEST SINGLE (PORTABL E) Exam Date: 11/29/17 [...] COPY T O: RAMU PATEL MD Urine SXX1042-13-87 04:51:00* Test Item Value Reference Range Interpretation Comments Urine WBC (test code = 5821-4) NONE 0-5 [facility] CampusUrine OLZ0911-64-61 04:51:00* Test Item Value Reference Range Interpretation Comments Urine RBC (test code = 80279-1) 0-5 0-5 [facility] CampusUrine Ibyilbfl7952-29-36 04:51:00* Test Item Value Reference Range Interpretation Comments Urine Bacteria (test code = 00997-1) MODERATE NONE H [facility] CampusUrine Epithelial Ysheq4487-92-78 04:51:00 * Test Item Value Reference Range Interpretation Comments Urine Epithelial Cells (test code = 01454-1) MANY NONE [facility] CampusUrine Calcium Oxalate Yxpivggw2403-39-77 04:51:00* Test Item Value Reference Range Interpretation Comments Urine Calcium Oxalate Crystals (test code = 5774-5) FEW FE W [facility] CampusUrine Calcium Oxalate Bcxxsvhe2639-84-55 04:51:00* Test Item Value Reference Range Interpretation Comments Urine Calcium Oxalate Crystals (test code = 5774-5) FEW FE W [facility] CampusUrine Gxddq4964-81-24 04:50:00* Test Item Value Reference Range Interpretation Comments Urine Color (test code = 5778-6) YELLOW YELLOW [facility] CampusUrine Cpdezfp4554-77-97 04:50:00* Test Item Value Reference Range Interpretation Comments Urine Clarity (test code = 70155-8) SL CLOUDY CLEAR [facility] CampusUrine Specific Aqlizyl9360-66-78 04:50:00 * Test Item Value Reference Range Interpretation Comments Urine Specific [place] (test code = 5811-5) 1.020 1.010-1.02 5 [facility] CampusUrine [id number] 04:50:00* Test Item Value Reference Range Interpretation Comments Urine pH (test code = 84743-0) 6 5-7 [facility] CampusUrine Leukocyte Dslveywm6695-05-09 04:50:00* Test Item Value Reference Range Interpretation Comments Urine Leukocyte Esterase (test code = 5799-2) TRACE NEGATIVE H [facility] CampusUrine Bldegcr0958-34-81 04:50:00* Test Item Value Reference Range Interpretation Comments Urine Nitrite (test code = 40228-5) NEGATIVE NEGATIVE [facility] CampusUrine Niasdyw2872-17-31 04:50:00* Test Item Value Reference Range Interpretation Comments Urine Protein (test code = 5804-0) NEGATIVE NEGATIVE [facility] CampusUrine Glucose (UA)2017-11-29 04:50:00* Test Item Value Reference Range Interpretation Comments Urine Glucose (UA) (test code = 2349-9) NEGATIVE NEGATIVE [facility] Yecewzz7156-93-14 04:50:00* Test Item Value Reference Range Interpretation Comments Urine Ketones (test code = 20859-6) NEGATIVE NEGATIVE [facility] Izxwijmfavpy5387-05-70 04:50:00* Test Item Value Reference Range Interpretation Comments Urine Urobilinogen (test code = 58467-4) 0.2 0.2-1 [facility] Qevlmtzsf0800-95-76 04:50:00* Test Item Value Reference Range Interpretation Comments Urine Bilirubin (test code = 1978-6) 1+ NEGATIVE H [facility] Ejpyk8861-84-06 04:50:00* Test Item Value Reference Range Interpretation Comments Urine Blood (test code = 55550-7) NEGATIVE NEGATIVE [facility] CampusThyroid Stimulating Hormone (TSH) 2017-11-11 07:29:00* Test Item Value Reference Range Interpretation Comments Thyroid Stimulating Hormone (TSH) (test code = 23675-6) 0.386 0.350-4.940 [facility] CampusThyroid Stimulating Hormone (TSH) 2017-11-11 07:29:00* Test Item Value Reference Range Interpretation Comments Thyroid Stimulating Hormone (TSH) (test code = 95429-5) 0.386 0.350-4.940 [facility] CampusThyroid Stimulating Hormone (TSH) 2017-11-11 07:29:00* Test Item Value Reference Range Interpretation Comments Thyroid Stimulating Hormone (TSH) (test code = 51181-7) 0.386 0.350-4.940 [facility] CampusLipase2018-06-19 07:15:00* Test Item Value Reference Range Interpretation Comments Lipase (test code = 3040-3) [facility] CampusLipase2018-06-19 07:15:00* Test Item Value Reference Range Interpretation Comments Lipase (test code = 3040-3) [facility] CampusLipase2018-06-19 07:15:00* Test Item Value Reference Range Interpretation Comments Lipase (test code = 3040-3) [facility] Dwolh4831-27-81 06:35:00* Test Item Value Reference Range Interpretation Comments Sodium Level (test code = 2951-2) 142 136-145 [facility] CampusPotassium Khqqx2522-54-91 06:35:00* Test Item Value Reference Range Interpretation Comments Potassium Level (test code = 2823-3) 4.0 3.5-5.1 [facility] CampusChloride Jthpx1213-38-56 06:35:00* Test Item Value Reference Range Interpretation Comments Chloride Level (test code = 2075-0) 110 98-107 H [facility] CampusCarbon Dioxide Zdxwy7946-85-82 06:35:00* Test Item Value Reference Range Interpretation Comments Carbon Dioxide Level (test code = 2028-9) 23 22-29 [facility] CampusAnion Nde7419-69-09 06:35:00* Test Item Value Reference Range Interpretation Comments Anion Gap (test code = 28223-2) 13.0 8-16 [facility] CampusBlood Urea Gnttcoab8383-91-39 06:35:00* Test Item Value Reference Range Interpretation Comments Blood Urea Nitrogen (test code = 3094-0) 11 7-26 [facility] CampusCreatinine2018-06-19 06:35:00* Test Item Value Reference Range Interpretation Comments Creatinine (test code = 2160-0) 1.00 0.57-1.11 [facility] CampusBUN/Creatinine Mthji6798-53-99 06:35:00* Test Item Value Reference Range Interpretation Comments BUN/Creatinine Ratio (test code = 3097-3) 11 6-25 [facility] CampusEstimat Glomerular Filtration Rate 2017-11-11 06:35:00* Test Item Value Reference Range Interpretation Comments Estimat Glomerular Filtration Rate (test code = 66442-2) 56 >60 L Ranges were taken from the National Kidney Disease Education Program and the [facility] literature.Reference ranges:60 or greater: Wjncor55-08 ( for 3 consecutive months): Chronic kidney disease 15 or less: Kidney failureCHI Longview Regional Medical CenterGlucose Ddkbp0128-51-09 06:35:00* Test Item Value Reference Range Interpretation Comments Glucose Level (test code = SZH6088) 169 74-118 H [facility] CampusCalcium Gxjws4975-07-69 06:35:00* Test Item Value Reference Range Interpretation Comments Calcium Level (test code = 42529-2) 9.2 8.4-10.2 [facility] CampusProthrombin Zmdd7777-01-25 06:31:00* Test Item Value Reference Range Interpretation Comments Prothrombin Time (test code = 5902-2) 19.5 11.9-14.5 H [facility] CampusProthromb Time International Ratio 2017-11-11 06:31:00* Test Item Value Reference Range Interpretation Comments Prothromb Time International Ratio (test code = 6301-6) 1.79 Oral Anticoagulant Therapy INR Values:1. Low Intensity Therapy 1.5 - 2.02 . Moderate Intensity Therapy 2.0 - 3.03. High Intensity Therapy(1) 2.5 - 3. 54. High Intensity Therapy(2) 3.0 - 4.05. Panic Value INR > 5.0 [facility] CampusProthrombin Cyta1678-52-61 06:31:00* Test Item Value Reference Range Interpretation Comments Prothrombin Time (test code = 5902-2) 19.5 11.9-14.5 H [facility] CampusProthromb Time International Ratio 2017-11-11 06:31:00* Test Item Value Reference Range Interpretation Comments Prothromb Time International Ratio (test code = 6301-6) 1.79 Oral Anticoagulant Therapy INR Values:1. Low Intensity Therapy 1.5 - 2.02 . Moderate Intensity Therapy 2.0 - 3.03. High Intensity Therapy(1) 2.5 - 3. 54. High Intensity Therapy(2) 3.0 - 4.05. Panic Value INR > 5.0 [facility] CampusAmmonia2018-06-19 06:30:00* Test Item Value Reference Range Interpretation Comments Ammonia (test code = 39273-0) 182 31-123 H [facility] CampusWhite Blood Bcuyt2169-46-53 06:11:00* Test Item Value Reference Range Interpretation Comments White Blood Count (test code = 6690-2) 4.91 4.8-10.8 [facility] CampusRed Blood Zhapc0519-16-18 06:11:00* Test Item Value Reference Range Interpretation Comments Red Blood Count (test code = 789-8) 3.81 3.6-5.1 [facility] CampusHemoglobin2018-06-19 06:11:00* Test Item Value Reference Range Interpretation Comments Hemoglobin (test code = 52714-7) 12.8 12.0-16.0 [facility] CampusHematocrit2018-06-19 06:11:00* Test Item Value Reference Range Interpretation Comments Hematocrit (test code = 4544-3) 38.1 34.2-44.1 [facility] CampusMean Corpuscular Ojunoy1822-92-65 06:11:00* Test Item Value Reference Range Interpretation Comments Mean Corpuscular Volume (test code = 787-2) 100.0 81-99 H [facility] CampusMean Corpuscular Gzexsdihur9474-53-73 06:11:00* Test Item Value Reference Range Interpretation Comments Mean Corpuscular Hemoglobin (test code = 785-6) 33.6 28-32 H [facility] CampusMean Corpuscular Hemoglobin Concent 2017-11-11 06:11:00* Test Item Value Reference Range Interpretation Comments Mean Corpuscular Hemoglobin Concent (test code = 786-4) 33.6 31-35 [facility] CampusRed Cell Distribution Pavba7973-60-05 06:11:00* Test Item Value Reference Range Interpretation Comments Red Cell Distribution Width (test code = 30830-0) 15.3 11.7 -14.4 H [facility] CampusPlatelet Lddtp4554-23-74 06:11:00* Test Item Value Reference Range Interpretation Comments Platelet Count (test code = 777-3) 71 140-360 L [facility] CampusNeutrophils (%) (Auto)2017-11-11 06:11:00 * Test Item Value Reference Range Interpretation Comments Neutrophils (%) (Auto) (test code = 67041-5) 64.0 38.7-80.0 [facility] CampusLymphocytes (%) (Auto)2017-11-11 06:11:00 * Test Item Value Reference Range Interpretation Comments Lymphocytes (%) (Auto) (test code = 736-9) 24.8 18.0-39.1 [facility] CampusMonocytes (%) (Auto)2017-11-11 06:11:00* Test Item Value Reference Range Interpretation Comments Monocytes (%) (Auto) (test code = 5905-5) 6.9 4.4-11.3 [facility] CampusEosinophils (%) (Auto)2017-11-11 06:11:00 * Test Item Value Reference Range Interpretation Comments Eosinophils (%) (Auto) (test code = 713-8) 3.5 0.0-6.0 [facility] CampusBasophils (%) (Auto)2017-11-11 06:11:00* Test Item Value Reference Range Interpretation Comments Basophils (%) (Auto) (test code = 706-2) 0.4 0.0-1.0 [facility] CampusIM GRANULOCYTES %2017-11-11 06:11:00* Test Item Value Reference Range Interpretation Comments IM GRANULOCYTES % (test code = IM GRANULOCYTES %) 0.4 0.0- 1.0 [facility] CampusNeutrophils # (Auto)2017-11-11 06:11:00* Test Item Value Reference Range Interpretation Comments Neutrophils # (Auto) (test code = 751-8) 3.1 2.1-6.9 [facility] CampusLymphocytes # (Auto)2017-11-11 06:11:00* Test Item Value Reference Range Interpretation Comments Lymphocytes # (Auto) (test code = 86660-4) 1.2 1.0-3.2 [facility] CampusMonocytes # (Auto)2017-11-11 06:11:00* Test Item Value Reference Range Interpretation Comments Monocytes # (Auto) (test code = 742-7) 0.3 0.2-0.8 [facility] CampusEosinophils # (Auto)2017-11-11 06:11:00* Test Item Value Reference Range Interpretation Comments Eosinophils # (Auto) (test code = 711-2) 0.2 0.0-0.4 [facility] CampusBasophils # (Auto)2017-11-11 06:11:00* Test Item Value Reference Range Interpretation Comments Basophils # (Auto) (test code = 704-7) 0.0 0.0-0.1 [facility] CampusAbsolute Immature Granulocyte (auto 2017-11-11 06:11:00* Test Item Value Reference Range Interpretation Comments Absolute Immature Granulocyte (auto ([place] t code = Absolute Immature Granulocyte (auto) 0.02 0-0.1 [facility] CampusBedside Uwmibdp6309-40-24 20:08:00* Test Item Value Reference Range Interpretation Comments Bedside Glucose (test code = 16740-8) 262 70-120 H Meter ID: [id number] [facility] CampusTotal Bilirubin 2017-11-10 11:59:00* Test Item Value Reference Range Interpretation Comments Total Bilirubin (test code = 1975-2) 2.5 0.2-1.2 H [facility] CampusAspartate Amino Transf (AST/SGOT) 2017-11-10 11:59:00* Test Item Value Reference Range Interpretation Comments Aspartate Amino Transf (AST/SGOT) (test code = Aspartate Amino Transf (AST/SGOT)) 46 5-34 H [facility] CampusAlanine Aminotransferase (ALT/SGPT) 2017-11-10 11:59:00* Test Item Value Reference Range Interpretation Comments Alanine Aminotransferase (ALT/SGPT) (test code = 1742-6) 28 0-55 [facility] CampusTotal Wzvwkbw9728-93-88 11:59:00* Test Item Value Reference Range Interpretation Comments Total Protein (test code = 2885-2) 6.6 6.5-8.1 [facility] CampusAlbumin2018-06-18 11:59:00* Test Item Value Reference Range Interpretation Comments Albumin (test code = 1751-7) 2.5 3.5-5.0 L [facility] CampusGlobulin2018-06-18 11:59:00* Test Item Value Reference Range Interpretation Comments Globulin (test code = 51645-2) 4.1 2.3-3.5 H [facility] CampusAlbumin/Globulin Pkixr4303-28-81 11:59:00 * Test Item Value Reference Range Interpretation Comments Albumin/Globulin Ratio (test code = 1759-0) 0.6 0.8-2.0 L [facility] CampusAlkaline Fztuicemesy4326-46-27 11:59:00* Test Item Value Reference Range Interpretation Comments Alkaline Phosphatase (test code = 6768-6) 223 40-150 H [facility] CampusCreatine Hvplqy9036-26-63 11:59:00* Test Item Value Reference Range Interpretation Comments Creatine Kinase (test code = 2157-6) 84 29-168 [facility] CampusCreatine Kinase FX8581-46-16 11:59:00* Test Item Value Reference Range Interpretation Comments Creatine Kinase MB (test code = 51937-5) 1.70 0-5.0 [facility] CampusTroponin D8391-48-58 11:59:00* Test Item Value Reference Range Interpretation Comments Troponin I (test code = UOZ2085) 0.079 0-0.300 [facility] CampusCreatine Qoasvx5679-53-03 11:59:00* Test Item Value Reference Range Interpretation Comments Creatine Kinase (test code = 2157-6) 84 29-168 [facility] CampusCreatine Kinase JC7680-36-25 11:59:00* Test Item Value Reference Range Interpretation Comments Creatine Kinase MB (test code = 91831-2) 1.70 0-5.0 [facility] CampusTroponin T4430-33-74 11:59:00* Test Item Value Reference Range Interpretation Comments Troponin I (test code = CQF8918) 0.079 0-0.300 [facility] CampusCHES SINGLE (PORTABLE)2017-11-10 11:47:00 [facility] [address] [address] Patient Name: DEBORAH AGUERO MR #: [id number] : 1955 Age/Sex: 62/F Req #: [id number] Adm Physician: Ordered by: JAIDEN VARNER MD Report #: [id number] Location: ER Room/Bed: Procedure: [id number] DX/CHEST SINGLE (PORTABLE) E xam Date: 11/10/17 Exam Time: 1110 REPORT STATU S: Signed PROCEDURE: A single AP view of the chest. COMPARISON: [facility], DX, CHEST SINGLE (PORTABLE), 01/10/2017, 12:33. GILL [...] COPY TO: LÁZARO VARNER RD, MD Urine ODL1077-61-43 11:45:00* Test Item Value Reference Range Interpretation Comments Urine WBC (test code = 5821-4) 0-5 0-5 [facility] CampusUrine SKC6450-86-61 11:45:00* Test Item Value Reference Range Interpretation Comments Urine RBC (test code = 55392-3) NONE 0-5 [facility] CampusUrine Kfmiigqp4254-01-34 11:45:00* Test Item Value Reference Range Interpretation Comments Urine Bacteria (test code = 25240-2) RARE NONE [facility] CampusUrine Epithelial Raluv0046-30-28 11:45:00 * Test Item Value Reference Range Interpretation Comments Urine Epithelial Cells (test code = 34302-2) MODERATE NONE [facility] CampusUrine Sjmxc6990-51-89 11:35:00* Test Item Value Reference Range Interpretation Comments Urine Color (test code = 5778-6) YELLOW YELLOW [facility] CampusUrine Scyklly3519-16-03 11:35:00* Test Item Value Reference Range Interpretation Comments Urine Clarity (test code = 79565-2) CLEAR CLEAR [facility] CampusUrine Specific Odbguip4392-00-95 11:35:00 * Test Item Value Reference Range Interpretation Comments Urine Specific [place] (test code = 5811-5) 1.025 1.010-1.02 5 [facility] CampusUrine dN4528-44-33 11:35:00* Test Item Value Reference Range Interpretation Comments Urine pH (test code = 80303-0) 6 5-7 [facility] CampusUrine Leukocyte Xclmbjmb8449-21-11 11:35:00* Test Item Value Reference Range Interpretation Comments Urine Leukocyte Esterase (test code = 5799-2) NEGATIVE NEGATIVE [facility] CampusUrine Soqsrvy8820-29-99 11:35:00* Test Item Value Reference Range Interpretation Comments Urine Nitrite (test code = 71290-9) NEGATIVE NEGATIVE [facility] CampusUrine Ofiywop4034-14-09 11:35:00* Test Item Value Reference Range Interpretation Comments Urine Protein (test code = 5804-0) NEGATIVE NEGATIVE [facility] CampusUrine Glucose (UA)2017-11-10 11:35:00* Test Item Value Reference Range Interpretation Comments Urine Glucose (UA) (test code = 2349-9) 2+ NEGATIVE H [facility] CampusUrine Gugbies6466-68-99 11:35:00* Test Item Value Reference Range Interpretation Comments Urine Ketones (test code = 74181-5) NEGATIVE NEGATIVE [facility] Ygqkuhuahmgq7037-80-19 11:35:00* Test Item Value Reference Range Interpretation Comments Urine Urobilinogen (test code = 43328-7) 0.2 0.2-1 [facility] CampusUrine Mchwphluh4687-62-48 11:35:00* Test Item Value Reference Range Interpretation Comments Urine Bilirubin (test code = 1978-6) NEGATIVE NEGATIVE [facility] CampusUrine Csooa5901-52-81 11:35:00* Test Item Value Reference Range Interpretation Comments Urine Blood (test code = 20868-8) TRACE NEGATIVE H [facility] CampusALPHA FETOPROTEIN (AFP), TUMOR MARKER 2017-09-15 12:53:00* Test Item Value Reference Range Interpretation Comments ALPHA-FETOPROTEIN (BEAKER) (test code = 1094) 3.2 ng/mL <10.0 BASIC METABOLIC ZPQLR9416-12-92 12:28:00* Test Item Value Reference Range Interpretation [...] FOR DIALYSIS PATIENTS. Specimen slightly ictericHEPATIC FUNCTION OSFDZ6027-66-57 12:28:00* Test Item Value Reference Range Interpretation [...] 347) 20 U/L 6-55 Specimen slightly ictericPROTHROMBIN TIME/XFS7330-31-58 12:24:00* Test Item Value Reference Range Interpretation [...] mechanical heart valves.CBC W/PLT COUNT & AUTO XSGNDSGYKDFH5068-02-93 12:19:00* Test Item Value Reference Range Interpretation [...] code = 2801) 0 % 0-1 POCT-GLUCOSE WCIOG2063-50-45 13:08:00* Test Item Value Reference Range Interpretation Comments POC-GLUCOSE METER (BEAKER) (test code = 1538) 111 mg/dL 70-110 H TESTED AT [facility] [address] [facility] [address] POCT-GLUCOSE SYBCE0371-99-72 09:42:00* Test Item Value Reference Range Interpretation Comments POC-GLUCOSE METER (BEAKER) (test code = 1538) 128 mg/dL 70-110 H TESTED AT [facility] [address] [facility] [address] Blood Mdktfww5381-83-75 23:43:00* Test Item Value Reference Range Interpretation Comments Blood Culture (test code = 41297410) NO GROWTH AFTER 5 DAYS, FINAL REPORT [facility] Rdqrpgz7884-83-18 23:43:00* Test Item Value Reference Range Interpretation Comments Blood Culture (test code = 04405450) NO GROWTH AFTER 5 DAYS, FINAL REPORT [facility] Kvhhiyz3231-89-02 13:28:00* Test Item Value Reference Range Interpretation Comments Blood Culture (test code = 600-7) Organism: STAPHYLOCOCCUS SP COAG NEG [facility] Lcwdadh0987-55-28 13:28:00* Test Item Value Reference Range Interpretation Comments Blood Culture (test code = 600-7) Organism: STAPHYLOCOCCUS SP COAG NEG [facility] CampusUrine Calcium Oxalate Rdfmnvfd7408-49-57 23:55:00* Test Item Value Reference Range Interpretation Comments Urine Calcium Oxalate Crystals (test code = 5774-5) FEW FE W [facility] CampusDifferential Total Cells Counted 2017-03-03 22:37:00* Test Item Value Reference Range Interpretation Comments Differential Total Cells Counted (test code = Differen tial Total Cells Counted) 100 [facility] CampusNeutrophils % (Manual)2017-03-03 22:37:00 * Test Item Value Reference Range Interpretation Comments Neutrophils % (Manual) (test code = 34456-4) 44 40-74 [facility] CampusLymphocytes % (Manual)2017-03-03 22:37:00 * Test Item Value Reference Range Interpretation Comments Lymphocytes % (Manual) (test code = 737-7) 42 19-48 [facility] CampusMonocytes % (Manual)2017-03-03 22:37:00* Test Item Value Reference Range Interpretation Comments Monocytes % (Manual) (test code = 744-3) 7 3.4-9.0 [facility] CampusEosinophils % (Manual)2017-03-03 22:37:00 * Test Item Value Reference Range Interpretation Comments Eosinophils % (Manual) (test code = 714-6) 6 0-7 [facility] CampusReactive Wozwwqlqbol4433-82-30 22:37:00* Test Item Value Reference Range Interpretation Comments Reactive Lymphocytes (test code = 95375-9) 1 [facility] CampusPlatelet Bxvrdvdz9227-33-37 22:37:00* Test Item Value Reference Range Interpretation Comments Platelet Estimate (test code = 00573-5) SLIGHTLY DECREASED [facility] CampusPlatelet Morphology Dekhgvc1162-87-06 22:37:00* Test Item Value Reference Range Interpretation Comments Platelet Morphology Comment (test code = 34498-8) NORMAL [facility] CampusRed Cell Morphology Ikvjrtx6799-57-32 22:37:00* Test Item Value Reference Range Interpretation Comments Red Cell Morphology Comment (test code = 6742-1) NORMAL [facility] CampusDifferential Total Cells Counted 2017-03-03 22:37:00* Test Item Value Reference Range Interpretation Comments Differential Total Cells Counted (test code = Differen tial Total Cells Counted) 100 [facility] CampusNeutrophils % (Manual)2017-03-03 22:37:00 * Test Item Value Reference Range Interpretation Comments Neutrophils % (Manual) (test code = 93721-7) 44 40-74 [facility] CampusLymphocytes % (Manual)2017-03-03 22:37:00 * Test Item Value Reference Range Interpretation Comments Lymphocytes % (Manual) (test code = 737-7) 42 19-48 [facility] CampusMonocytes % (Manual)2017-03-03 22:37:00* Test Item Value Reference Range Interpretation Comments Monocytes % (Manual) (test code = 744-3) 7 3.4-9.0 [facility] [place] [facility] CampusEosinophils % (Manual)2017-03-03 22:37:00 * Test Item Value Reference Range Interpretation Comments Eosinophils % (Manual) (test code = 714-6) 6 0-7 [facility] [place] [facility] CampusReactive [id number] 22:37:00* Test Item Value Reference Range Interpretation Comments Reactive Lymphocytes (test code = 12278-5) 1 [facility] [place] [facility] CampusPlatelet [id number] 22:37:00* Test Item Value Reference Range Interpretation Comments Platelet Estimate (test code = 56259-6) SLIGHTLY DECREASED [facility] [place] [facility] CampusPlatelet Morphology [id number] 22:37:00* Test Item Value Reference Range Interpretation Comments Platelet Morphology Comment (test code = 40204-3) NORMAL [facility] [place] [facility] CampusRed Cell Morphology [id number] 22:37:00* Test Item Value Reference Range Interpretation Comments Red Cell Morphology Comment (test code = 6742-1) NORMAL [facility] [place] [facility] CampusMagnesium [id number] 21:53:00* Test Item Value Reference Range Interpretation Comments Magnesium Level (test code = 44856-6) 1.5 1.3-2.1 [facility] [place] [facility] CampusMagnesium [id number] 21:53:00* Test Item Value Reference Range Interpretation Comments Magnesium Level (test code = 61321-1) 1.5 1.3-2.1 [facility] [place] [facility] CampusActivated Partial Thromboplast Time 2017-03-03 21:45:00* Test Item Value Reference Range Interpretation Comments Activated Partial Thromboplast Time (test code = 69921-1) 40.2 23.8-35.5 H [facility] [place] [facility] CampusActivated Partial Thromboplast Time 2017-03-03 21:45:00* Test Item Value Reference Range Interpretation Comments Activated Partial Thromboplast Time (test code = 66906-2) 40.2 23.8-35.5 H [facility] [place] [facility] CampusCT ABDOMEN[facility]PELVIS WO [facility] [address] [place] [address] Patient Name: DEBORAH AGUERO MR #: [id number] : 1955 Age/Sex: 61/F [facility] #: [id number] [facility] #: [id number] [facility] Physician: Ordered by: FRANCES MCNEILL MD Report #: [id number] Location: ER Room/Bed: Procedure: [id number] CT/CT ABDOMEN/PELVIS WO Exam D ate: Exam [...] PM Dictated By: ANA CRISTINA SHEEHAN MD 57 Transcribed By: LIV on 03/03 COPY TO: FRANCES MCNEILL MD CHEST SINGLE (PORTABLE) [place] [address] Patient Name: DEBORAH AGUERO MR #: [id number] : 0 1955 Age/Sex: 61/F Req #: [id number] Adm Physician: Ordered by: JAIDEN PALMER MD Report #: [id number] Location: ER Room/Be d: Procedure: [id number] DX/CHEST SINGLE (PORTABLE) E xam Date: 01/10/17 Exam Time: 1235 REPORT STATU S: Signed PROCEDURE: A single AP view of the chest. COMPARISON: [facility], DX, CHEST SINGLE (PORTABLE), 12/02/2016, 21:04. GILL [...] TO: JAIDEN PALMER MD CT BRAIN WO [place] [address] Patient Name: DEBORAH AGUERO MR #: [id number] : 1955 Age/Sex: 61/F Req #: [id number] Adm Physician: Ordered by: JAIDEN PALMER MD Report #: [id number] Location: ER Room/Bed: Procedure: [id number] CT/CT BRAIN WO Exam Date: Exam Time: [...] PM Dic tated By: HARINDER BARNES MD 1321 COPY TO: Moi PALMER MD
[2020-01-03 16:51] VITALS: BP 158/76
[2020-01-03] MEDS ORDERED: DEXILANT30 MG (18:10)
[2020-01-03] MEDS ORDERED: GLIMEPIRIDE1 MG (18:12)
[2020-01-03] MEDS ORDERED: SYNTHROID125 MCG PO (18:13)
[2020-01-03] MEDS ORDERED: PROPRANOLOL HCL10 MG PO (18:15)
[2020-01-03] MEDS ORDERED: ALBUTEROL SULFATE HFA 8GM INHALATION AEROSOL INH PRN (19:00)
[2020-01-03 20:00] VITALS: BP 158/76
[2020-01-03 20:07] VITALS: BP 124/56
[2020-01-03] MEDS ORDERED: DEXTROSE 50% SYRINGE 50 ML IV PRN (21:15)
[2020-01-03] MEDS: LACTULOSE SYRUP 20 GM/30 ML UDC PO SCH (21:20)
[2020-01-03] MEDS: BENZONATATE 100 MG CAP PO SCH (21:20)
[2020-01-03] MEDS: INSULIN GLARGINE 100 UNITS/ML VIAL SQ SCH (21:43)
[2020-01-03] MEDS: INSULIN LISPRO 100 UNIT/1 ML 3ML VIAL SQ SCH (21:44)
[2020-01-04] VITALS (8 sets, daily range): BP systolic 117–139; BP diastolic 53–70
[2020-01-04] MEDS: LEVOTHYROXINE SODIUM 125 MCG TAB PO SCH (05:44)
[2020-01-04] MEDS ORDERED: CLONIDINE HCL 0.1 MG TAB PO PRN (05:45)
[2020-01-04 06:34] LABS: BASOPHILS % 0.6 % (0.0-1.0); EOSINOPHILS # (AUTO) 0.3 (0.0-0.4); EOSINOPHILS % 5.2 % (0.0-6.0); HEMATOCRIT 35.4 % (34.2-44.1); HEMOGLOBIN 11.6 g/dL (12.0-16.0); LYMPHOCYTES # (AUTO) 1.2 (1.0-3.2); LYMPHOCYTES % 22.8 % (18.0-39.1); MEAN CORPUSCULAR HGB CONC 32.8 g/dL (31-35); MEAN CORPUSCULAR VOLUME 97.8 fL (81-99); MONOCYTES # (AUTO) 0.7 (0.2-0.8); MONOCYTES % 12.7 % (4.4-11.3); NEUTROPHILS # (AUTO) 3.1 (2.1-6.9); NEUTROPHILS % 58.3 % (38.7-80.0); PLATELET COUNT 75 x10e3/uL (140-360); RED BLOOD COUNT 3.62 x10e6/uL (3.6-5.1); RED CELL DISTRIBUTION WIDTH 16.6 % (11.7-14.4)
[2020-01-04 06:51] LABS: INR 1.61; PROTHROMBIN TIME 20.1 seconds (11.9-14.5)
[2020-01-04 06:53] LABS: ALBUMIN 2.1 g/dL (3.5-5.0); ALBUMIN/GLOBULIN RATIO 0.5 (0.8-2.0); CALCIUM 8.4 mg/dL (8.4-10.2); CREATININE, SERUM 1.08 mg/dL (0.57-1.11); MAGNESIUM 1.5 MG/DL (1.3-2.1)
--- NOTE | 2020-01-04 06:59 | NUR ---
BEDSIDE REPORT GIVEN BY SOFIYA MAGANA. PATIENT RECEIVED LYING IN BED HOB ELEVATED 30 DEGREES. PT RESTING BUT EASILY AROUSED IN NO ACUTE DISTRESS. CALL LIGHT AND BELONGINGS NEARBY. SIDERAILS UP.WILL CONTINUE TO MONITOR.
--- NOTE | 2020-01-04 07:15 | NUR ---
PT HAS AM POTASSIUM LAB OF 3.0. TELEPHONE ORDERS RECEIVED TO GIVE POTASSIUM CHLORIDE 40 MEQ PO ONCE PER DR GARCIA.
[2020-01-04] MEDS ORDERED: POTASSIUM CHLORIDE 20 MEQ TAB CR PO SCH (08:15)
[2020-01-04] MEDS: URSODIOL 300 MG CAP PO SCH ×2 (09:08→16:51)
[2020-01-04] MEDS: SPIRONOLACTONE 25 MG TAB PO SCH (09:08)
[2020-01-04] MEDS: PROPRANOLOL HCL 10 MG TAB PO SCH ×2 (09:08→16:51)
[2020-01-04] MEDS: PANTOPRAZOLE SOD 40 MG TABEC PO SCH (09:09)
[2020-01-04] MEDS: LACTULOSE SYRUP 20 GM/30 ML UDC PO SCH ×3 (09:09→20:59)
[2020-01-04] MEDS: ZINC SULFATE 220 MG CAP PO SCH (09:09)
[2020-01-04] MEDS: FUROSEMIDE 40 MG TAB PO SCH (09:09)
[2020-01-04] MEDS: RIFAXIMIN 550 MG TABLET PO SCH ×2 (09:09→21:00)
[2020-01-04] MEDS: MAGNESIUM OXIDE 400 MG TAB PO SCH (09:09)
[2020-01-04] MEDS: BENZONATATE 100 MG CAP PO SCH ×3 (09:10→21:00)
[2020-01-04] MEDS: INSULIN LISPRO 100 UNIT/1 ML 3ML VIAL SQ SCH ×4 (09:22→21:04)
[2020-01-04] MEDS ORDERED: PHYTONADIONE 10 MG/ML AMP SQ SCH (09:30)
--- NOTE | 2020-01-04 10:37 | Consultation ---
DATE OF CONSULTATION: Pulmonary Consultation HISTORY OF PRESENT ILLNESS: Charming, but unfortunate 64-year-old woman with a history of cirrhosis. This is uncertain whether this is biliary cirrhosis or related to exposure to her , who had hepatitis C and was a drug user. She was admitted with shortness of breath of one weeks' duration, which she says has improved since hospitalization. She has a history of diabetes, hypothyroidism, hypertension, and chronic kidney disease. ALLERGIES: SHE HAS NO KNOWN ALLERGIES. PAST SURGICAL HISTORY: She has had gallbladder surgery. MEDICATIONS: According to record, her medications include Dexilant, Levoxyl, Inderal, albuterol, Tessalon Perles, insulin, lactulose, rifaximin, and ursodiol. She has had hepatic encephalopathy in the past. SOCIAL HISTORY: Denies smoking, but according to record, she did quit smoking 2 years ago. No alcohol use. Born in [place], [place]. 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 PHYSICAL EXAMINATION: GENERAL: This is a well-developed white female, looking somewhat older than her stated age. VITAL SIGNS: Temperature 98.4, pulse 78, respirations 18, and blood pressure 125/50. She is unable to sit up in bed. Nurse feels she has had bowel movement. HEAD: Normocephalic and atraumatic. LUNGS: Diminished breath sounds at bases. HEART: Regular rhythm. ABDOMEN: Nontender. EXTREMITIES: Nonedematous. 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 She is coagulopathic with elevated protime. We will begin vitamin K replacement. Consider thoracentesis. Continue home medications and p.r.n. bronchodilators. Mobilization. Check serologies. Thank you for this kind referral. MD DERRELL Lemos/MODL /[id number]
[2020-01-04] MEDS ORDERED: ALBUTEROL/IPRATROPIUM 3 ML NEB NEB SCH (13:00)
--- NOTE | 2020-01-04 19:10 | NUR ---
Bedside rounds completed with morning nurse. Pt alert and oriented to name, lying in bed HOB 45 degrees, denies pain at this time. Call light within reach. Bed low and locked.
[2020-01-04] MEDS: INSULIN GLARGINE 100 UNITS/ML VIAL SQ SCH (21:04)
--- NOTE | 2020-01-04 21:41 | Progress Note ---
DATE: 01/04/2020 SUBJECTIVE: Her breathing is better. OBJECTIVE: VITAL SIGNS: Temperature 98.0, pulse 65, respiratory rate 19, blood pressure 117/60. GENERAL: No acute distress. SKIN: No rash. LUNGS: Decreased breath sounds. HEART: Regular rate and rhythm. Normal S1, S2. GI: Abdomen is soft, nondistended. NEUROLOGIC: Alert and oriented x3. PSYCHIATRIC: No hallucination. LABORATORY DATA: Laboratory jiang, potassium 3.0, creatinine 1.1, sugar 235, total bilirubin is 4.0. White count 5, hemoglobin 12, platelet count 75. INR is 1.6. ASSESSMENT AND PLAN: 1. Hepatic hydrothorax. The patient is status post IV Lasix with good diuresis. Currently, she is feeling much better. Pulmonary is on the case. We will continue oral Lasix, also continue p.o. Aldactone. 2. Cirrhosis. We will continue her lactulose and her rifaximin. 3. Diabetes. We will continue her Lantus along with sliding scale. 4. Gastrointestinal/deep venous thrombosis prophylaxis. No chemical deep venous thrombosis prophylaxis due to thrombocytopenia. MD NIURKA Hernandez/FELIBERTOL /[id number]
--- NOTE | 2020-01-04 22:40 | NUR ---
Rounds with Dr. Melida La, no further orders.
[2020-01-05] VITALS: BP 129/63
--- NOTE | 2020-01-05 00:26 | Consultation ---
DATE OF CONSULTATION: 01/04/2020 Cardiology Consult Note REASON FOR CONSULT: Suspected CHF. CHIEF COMPLAINT: Shortness of breath and abdominal distention. HISTORY OF PRESENT ILLNESS: A 64-year-old female with known history of cirrhosis, frequent admissions for volume overload, ascites and hepatic hydrothorax, presenting with worsening shortness of breath once again. PAST MEDICAL HISTORY: Includes cirrhosis, diabetes, hypothyroidism, hypertension, and CKD. OUTPATIENT MEDICATIONS: Reviewed. ALLERGIES: NO KNOWN DRUG ALLERGIES. REVIEW OF SYSTEMS: As per HPI, otherwise negative. SOCIAL HISTORY: Does not smoke currently. Used to be a previous smoker. No alcohol or drugs. FAMILY HISTORY: Noncontributory. PHYSICAL EXAMINATION: GENERAL: Well-developed, in no acute distress. CARDIOVASCULAR: Regular rate and rhythm. No murmurs, rubs, or gallops. LUNGS: Diminished breath sounds at the bases. ABDOMEN: Soft, mildly distended, nontender. INPATIENT MEDICATIONS: Reviewed. LABORATORY DATA: Reviewed, notable for negative troponin. BNP of 424. IMAGING DATA: Reviewed, shows significant ascites as well as hydrothorax. ASSESSMENT/PLAN: 1. Cirrhosis. 2. Elevated BNP. PLAN: Echocardiogram has been ordered, we will review once completed. Continue diuresing as tolerated. May need thoracentesis. Most low volume overload and shortness of breath are due to the cirrhosis. Further recommendations after echocardiogram results were completed. Thank you for this consult. We will continue to follow. MD FAVIOLA Chung/NICHOLE /[id number]
[2020-01-05 04:00] VITALS: BP 131/52
--- NOTE | 2020-01-05 05:56 | NUR ---
Pt sitting up on side of bed, denies pain or discomfort. Pt signed consent for Thoracentesis. Call light within reach.
[2020-01-05] MEDS: LEVOTHYROXINE SODIUM 125 MCG TAB PO SCH (06:07)
--- NOTE | 2020-01-05 07:10 | NUR ---
RCD PT AT BED PT IS ALERT AND ORIENTED IV INFILTRATED BY SALINE FLUSH , PT NPO FOR PROCEDURE BED LOW AND LOCKED CALL LIGHT IN REACH
[2020-01-05] MEDS: INSULIN LISPRO 100 UNIT/1 ML 3ML VIAL SQ SCH ×2 (07:30→11:30)
[2020-01-05 07:55] LABS: BASOPHILS # (AUTO) 0.1 (0.0-0.1); BASOPHILS % 0.9 % (0.0-1.0); EOSINOPHILS # (AUTO) 0.4 (0.0-0.4); EOSINOPHILS % 5.2 % (0.0-6.0); HEMATOCRIT 37.8 % (34.2-44.1); HEMOGLOBIN 12.4 g/dL (12.0-16.0); LYMPHOCYTES # (AUTO) 1.9 (1.0-3.2); LYMPHOCYTES % 28.6 % (18.0-39.1); MEAN CORPUSCULAR HEMOGLOBIN 32.2 pg (28-32); MEAN CORPUSCULAR HGB CONC 32.8 g/dL (31-35); MEAN CORPUSCULAR VOLUME 98.2 fL (81-99); MONOCYTES # (AUTO) 0.8 (0.2-0.8); MONOCYTES % 11.8 % (4.4-11.3); NEUTROPHILS # (AUTO) 3.5 (2.1-6.9); NEUTROPHILS % 52.9 % (38.7-80.0); PLATELET COUNT 80 x10e3/uL (140-360); RED BLOOD COUNT 3.85 x10e6/uL (3.6-5.1); RED CELL DISTRIBUTION WIDTH 16.8 % (11.7-14.4)
[2020-01-05 08:03] LABS: INR 1.61; PROTHROMBIN TIME 20.1 seconds (11.9-14.5)
[2020-01-05 08:12] LABS: CALCIUM 8.5 mg/dL (8.4-10.2); CREATININE, SERUM 1.07 mg/dL (0.57-1.11); MAGNESIUM 1.6 MG/DL (1.3-2.1)
[2020-01-05 08:50] VITALS: BP 166/67
[2020-01-05] MEDS: LACTULOSE SYRUP 20 GM/30 ML UDC PO SCH ×2 (09:00→15:00)
--- NOTE | 2020-01-05 10:16 | NUR ---
PT WENT TO PROCEDURE IN SAFE CONDITION
--- NOTE | 2020-01-05 11:11 | NUR ---
PT BACK AFTER PROCEDURE VITALS CHECKED NO SIGNS OF ANY LEAKAGE ON THE ASPIRATION SITE LEFT UPPER BACK ,DRAINED 700 ML PINKISH FLUID AND SPECIMEN SEND FOR TEST
--- NOTE | 2020-01-05 11:15 | Diagnostic Imaging Report ---
PROCEDURE: Ultrasound-guided thoracentesis Procedural Personnel Attending physician(s): Zohaib Haque MD Fellow physician(s): None Resident physician(s): None Advanced practice provider(s): None Pre-procedure diagnosis: Right pleural effusion Post-procedure diagnosis: Same Indication: Pleural effusion with compromised respiration Additional clinical history: None Complications: No immediate complications. IMPRESSION: Ultrasound-guided thoracentesis with drainage of 700 mL of serous fluid. Plan: Resume care by clinical team. PROCEDURE SUMMARY: - Limited thoracic ultrasound - Ultrasound-guided thoracentesis - Additional procedure(s): None PROCEDURE DETAILS: Pre-procedure Consent: Informed consent for the procedure including risks, benefits and alternatives was obtained and time-out was performed prior to the procedure. Preparation: The site was prepared and draped using maximal sterile barrier technique including cutaneous antisepsis. Anesthesia/sedation Level of anesthesia/sedation: No sedation Anesthesia/sedation administered by: Not applicable Total intra-service sedation time (minutes): None Limited thoracic ultrasound Limited thoracic ultrasound was performed using a curved transducer. A safe window for thoracentesis was identified. Left hemithorax findings: Not investigated Right hemithorax findings: Moderate pleural effusion Thoracentesis Local anesthesia was administered. The pleural space was accessed under real-time ultrasound guidance and fluid return confirmed position. The fluid was drained. The catheter was removed, and a sterile bandage was applied. Catheter placed: 5F Gray Post-drainage hemithorax findings: No visible pleural effusion Additional Details Additional description of procedure: None Equipment details: None Specimens removed: Pleural fluid Estimated blood loss (mL): Less than 10 Standardized report: SIR_Thoracentesis_v3 Attestation Signer name: Zohaib Haque MD I attest that I was present for the entire procedure. I reviewed the stored images and agree with the report as written. Signed by: Zohaib Haque MD on 01/05/2020 11:12 AM
--- NOTE | 2020-01-05 11:26 | Diagnostic Imaging Report ---
EXAMINATION: CHEST SINGLE (NOT PORTABLE) INDICATION: Postprocedural COMPARISON: Chest CT 01/03/2020 FINDINGS: LINES/TUBES:EKG leads overlie the chest. LUNGS:The lungs are well-inflated. Minimal right basilar opacities. No focal consolidation or pulmonary edema. PLEURA:Interval decrease in right pleural effusion, now trace. No pneumothorax status post right thoracentesis. MEDIASTINUM:The cardiomediastinal silhouette appears normal in size and shape. BONES/SOFT TISSUES:No acute osseous injury. ABDOMEN:No free air under the diaphragm. IMPRESSION: No pneumothorax status post right thoracentesis. Interval decrease in right pleural effusion, now trace. Signed by: Zohaib Haque MD on 01/05/2020 11:23 AM
[2020-01-05] MEDS: PROPRANOLOL HCL 10 MG TAB PO SCH ×2 (12:00→16:15)
[2020-01-05] MEDS: SPIRONOLACTONE 25 MG TAB PO SCH (12:00)
[2020-01-05] MEDS: MAGNESIUM OXIDE 400 MG TAB PO SCH (12:00)
[2020-01-05] MEDS: PANTOPRAZOLE SOD 40 MG TABEC PO SCH (12:00)
[2020-01-05] MEDS: FUROSEMIDE 40 MG TAB PO SCH (12:00)
[2020-01-05] MEDS: RIFAXIMIN 550 MG TABLET PO SCH (12:00)
[2020-01-05] MEDS: ZINC SULFATE 220 MG CAP PO SCH (12:00)
[2020-01-05] MEDS ORDERED: POTASSIUM CHLORIDE 20 MEQ TAB CR PO SCH (12:00)
[2020-01-05] MEDS: BENZONATATE 100 MG CAP PO SCH ×2 (12:00→15:00)
[2020-01-05] MEDS: URSODIOL 300 MG CAP PO SCH ×2 (12:00→16:15)
[2020-01-05 12:14] VITALS: BP 150/86
[2020-01-05 12:28] LABS: BODY FLUID COLOR RED; BODY FLUID TYPE PLEURAL
[2020-01-05 12:33] LABS: RBC,BODY FLUID 8195 cells/uL; WBC,BODY FLUID 1100 cells/uL
[2020-01-05 12:34] LABS: BODY FLUID APPEARANCE CLOUDY
[2020-01-05 12:39] LABS: LYMPHOCYTES,BODY FLUID 77 %; MONO/MACROPHG,BODY FLUID 19 %; OTHER CELLS,BODY FLUID 4 %
[2020-01-05 16:09] VITALS: BP 119/55
--- NOTE | 2020-01-05 16:15 | NUR ---
THERE IS SIGNS OF ANY LEAKAGE OF FLUID OR ANY BLEEDING FROM THE ASPIRATION SITE
--- NOTE | 2020-01-05 16:20 | NUR ---
PATIENT WENT HOME IN SAFE CONDITION WITH HER
--- NOTE | 2020-01-06 03:12 | Discharge Summary ---
PRIMARY CARE DOCTOR: Dr. Yoandy Dorman. 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 SECONDARY DIAGNOSES: 1. Cirrhosis. 2. Diabetes. 3. Hypothyroidism. PROCEDURES/STUDIES PERFORMED: 1. Thoracentesis. 2. Chest CT. 3. Abdominal CT. CONSULTANTS: 1. Dr. Fair, housing assistant. 2. Dr. Ana Paula Nathan, cardiologists. 3. Dr. La, GI. HISTORY: Per H and P. HOSPITAL COURSE: The patient was diuresed with IV Lasix. Subsequently, thoracentesis was done. Now, the patient is back to her baseline. 700 mL of transudative pleural effusion was removed. The patient will continue her Aldactone and Lasix when she goes home. Her EF is normal on echocardiogram. The patient was seen and examined today. It took 32 minutes total to discharge this patient today including updating her primary care doctor and discussing with Dr. Fair. The patient will follow up with her primary care doctor in one week. CONDITION ON DISCHARGE: Improved. DISCHARGE MEDICATIONS: Please see medication reconciliation form. MD NIURKA Hernandez/FELIBERTOL /[id number] cc: [facility]
== END 2020-01-05 16:20 | disposition home or self-care (01) ==
LOC: ER 12:53 → ERHOLD 15:18 → MED/SURG2 16:44
PROVIDERS: ADMIT Internal Medicine; ATTEND Internal Medicine
DX: J94.8 Other specified pleural conditions (principal); J91.8 Pleural effusion in other conditions classified elsewhere; K74.60 Unspecified cirrhosis of liver; R18.8 Other ascites; D61.818 Other pancytopenia; E11.22 Type 2 diabetes mellitus with diabetic chronic kidney disease; I12.9 Hypertensive chronic kidney disease with stage 1 through stage 4 chronic kidney disease, or unspecified chronic kidney disease; N18.3 Chronic kidney disease, stage 3 (moderate); E03.9 Hypothyroidism, unspecified; Z82.49 Family history of ischemic heart disease and other diseases of the circulatory system; Z87.891 Personal history of nicotine dependence; Z11.59 Encounter for screening for other viral diseases; Z79.4 Long term (current) use of insulin
CPT/HCPCS: 32555 ×2; 36415 ×3; 71045; 71260; 74177; 74470; 80048; 80053 ×2; 82140; 82945; 82948 ×3; 83615; 83735 ×2; 83880; 84132; 84157; 84295; 84484; 85025 ×3; 85610 ×2; 86255; 87070; 87116; 87205; 87206; 87521; 88112; 88305; 89051; 93005; 93306; 94640; 97116; 97139; 97161; 99284; G0378 ×3; J1815; J1940; J3430; J7799; Q9967; S0164 ×2; U0002

== ENCOUNTER 2020-02-27 02:17 | Observation (INO) | payer MEDICARE, OTHER ==
[~2020-02-27] VITALS: Ht 165.1 cm; Wt 105.3 kg
[2020-02-27] VITALS (9 sets, daily range): BP systolic 102–162; BP diastolic 57–78
[~2020-02-27 02:17] MED LIST changes: +DEXILANT30 MG; +GLIMEPIRIDE1 MG
--- NOTE | 2020-02-27 02:31 | Emergency Department Note ---
History of Present Illnes History of Present Illness Chief Complaint: Abdominal Complaints History of Present Illness This is a 64 year old female presents to the ED for evaluation of abdominal pain and distension. RE[facility]ly released from [facility] for removal of cyst on the back. . Onset (how long ago): hour(s) Radiation: Reports abdomen Severity: moderate Onset quality: gradual Duration (how long): day(s) Timing of current episode: constant Progression: worsening Context: Reports recent surgery Relieving factors: none Exacerbating factors: none Treatments prior to arrival: none Past Medical/Family History Physician Review I have reviewed the patient's past medical and family history. Any updates have been documented here. Past Medical History Recent Fever: No Clinical Suspicion of Infectio: No New/Unexplained Change in Ment: No Past Medical History: Hypertension, Diabetes, Asthma, Hypothyroidism, Hepatitis C, Liver Disease, GERD Other Medical History: cirrosis liver morbid obesity Past Surgical History: Cholecysctectomy Other Surgery: right ovary removed, Social History Smoking Cessation: Never Smoker Alcohol Use: None Any Illegal Drug Use: No Other Last Tetanus: UP TO DATE Review of Systems Review of Systems Constitutional: Reports no symptoms EENTM: Reports no symptoms Cardiovascular: Reports no symptoms Respiratory: Reports no symptoms Gastrointestinal: Reports abdominal pain, Reports nausea, Reports vomiting Genitourinary: Reports no symptoms Musculoskeletal: Reports no symptoms Integumentary: Reports no symptoms Neurological: Reports no symptoms Psychological: Reports no symptoms Endocrine: Reports no symptoms Hematological/Lymphatic: Reports no symptoms Physical Exam Related Data Allergies: Coded Allergies: No Known Allergies (Unverified , 09/25/19) Triage Vital Signs Vital Signs Date Time Temp Pulse Resp B/P (MAP) Pulse Ox O2 Delivery O2 Flow Rate FiO2 02/27/20 02:24 98.3 85 16 163/76 97 Room Air 02/27/20 15:31 2.0 Vital signs reviewed: Yes Physical Exam CONSTITUTIONAL Constitutional: Present morbidly obese HENT HENT: Present normocephalic, Present atraumatic, Present oropharynx clear/moist, Present nose normal HENT L/R: Present left ext ear normal, Present right ext ear normal EYES Eyes: Reports PERRL, Reports conjunctivae normal NECK Neck: Present ROM normal PULMONARY Pulmonary: Present effort normal, Present breath sounds normal CARDIOVASCULAR Cardiovascular: Present regular rhythm, Present heart sounds normal, Present capillary refill normal, Present normal rate GASTROINTESTINAL Abdominal: Present soft, Present distension, Present tender GENITOURINARY Genitourinary: Present exam deferred SKIN Skin: Present warm, Present dry MUSCULOSKELETAL Musculoskeletal: Present ROM normal NEUROLOGICAL Neurological: Present alert, Present oriented x 3, Present no gross motor or sensory deficits PSYCHOLOGICAL Psychological: Present mood/affect normal, Present judgement normal Results Laboratory Lab results reviewed: Yes Imaging Imaging results reviewed: Yes Impressions [place] [address] Patient Name: DEBORAH AGUERO MR #: [id number] : 1955 Age/Sex: 64/F Req #: [id number] Adm Physician: Ordered by: NIKOS KEYS DO Report #: [id number] Location: ER Room/Bed: Procedure: [id number] CT/CT ABDOMEN/PELVIS WO Exam Date: 02/27/20 Exam Time: 0425 REPORT STATUS: Signed ADDENDUM #1 Vascular calcifications, including in the renal arteries. A punctate calcification the left renal interpolar area may be another renal vascular calcification versus a punctate nonobstructive calculus, stable compared to 5 [address] abdominal [address]s performed in the last 8 months, including on 01/03/2020, 09/25/2019, 09/22/2019, 09/20/2019 and 07/19/2019. Signed by: Jered Howard DO on 02/27/2020 5:27 AM ORIGINAL REPORT EXAM: CT Abdomen and Pelvis WITHOUT contrast INDICATION: Abdominal pain COMPARISON: Abdominal CT 01/03/2020 TECHNIQUE: Abdomen and pelvis were scanned utilizing a multidetector helical scanner from the lung base to the pubic symphysis without administration of IV contrast. Absence of intravenous contrast decreases sensitivity for detection of focal lesions and vascular pathology. Coronal and sagittal reformations were obtained. Routine protocol was performed. IV CONTRAST: None ORAL CONTRAST: None COMPLICATIONS: None RADIATION DOSE: Total DLP: 787 mGy*cm Estimated effective dose: (DLP x 0.015 x size factor) mSv CTDIvol has been reviewed. It is below the limits set by the Radiation Protocol Committee (RPC). Dose modulation, iterative reconstruction, and/or weight based adjustment of the mA/kV was utilized to reduce the radiation dose to as low as reasonably achievable. FINDINGS: LINES/ TUBES: None. LOWER CHEST: Moderate right and small left pleural effusions. Aortic valve and mitral annular calcifications. HEPATOBILIARY: Diffuse hepatic steatosis and nodular liver surface contour. No biliary ductal dilation. Status post cholecystectomy. SPLEEN: No splenomegaly. PANCREAS: No focal masses or ductal dilatation. ADRENALS: No adrenal nodules. KIDNEYS/URETERS: No renal calculi, hydronephrosis, or solid renal mass lesion. PELVIC ORGANS/BLADDER: Unremarkable. PERITONEUM / RETROPERITONEUM: Trace ascites in the pelvis. No free air. LYMPH NODES: No lymphadenopathy. VESSELS: Sequela of portal hypertension with recanalization of the umbilical vein and a large splenorenal shunt. Small left pelvic portosystemic varices. GI TRACT: Mild stomach and proximal duodenal wall thickening, possibly related to portal gastropathy. No bowel obstruction. Moderate colonic stool burden. BONES AND SOFT TISSUES: No acute osseous injury. No suspicious lytic or blastic lesions. Mild anasarca. IMPRESSION: Persistent bilateral pleural effusions. Mild anasarca. Hepatic cirrhosis and portal hypertension with small volume ascites. Moderate colonic stool burden, correlate for constipation. 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 07/14/19 Reported Medications [Vitamin D] No Conflict Check, 1.25 MG PEG UD 02/27/20 Insulin Glargine (LANTUS 3ML PEN) 100 Units/1 Ml Inj, 50 UNITS SQ AM 02/27/20 Spironolactone (SPIRONOLACTONE) 25 Mg Tablet, 100 MG PO DAILY, #60 TAB 07/13/19 Insulin Glargine (LANTUS 3ML PEN) 100 Units/1 Ml Inj, 50 UNITS SQ HS 11/29/17 Rifaximin (XIFAXAN) 550 Mg Tablet, 1 TAB PO BID 11/11/17 Furosemide (LASIX) 40 Mg Tablet, 40 MG PO DAILY, #30 TAB 11/11/17 Propranolol Hcl (PROPRANOLOL HCL) 10 Mg Tablet, 10 MG PO BID, TAB 01/11/17 Omeprazole (OMEPRAZOLE) 40 Mg Capsule.dr, DAILY 01/11/17 Levothyroxine Sodium (SYNTHROID) 125 Mcg Tab, 125 MCG PO DAILY, #30 TAB 06/18/16 Lactulose (LACTULOSE) 20 Gm/30 Ml Solution, 20 G PO BID, EACH 06/18/16 Discontinued Reported Medications Levothyroxine Sodium (SYNTHROID) 125 Mcg Tab, 125 MCG PO 0630, #30 TAB 01/03/20 Glimepiride (GLIMEPIRIDE) 1 Mg Tablet 01/03/20 Dexlansoprazole (DEXILANT) 30 Mg Cap. THERAPEUTIC INTERCHANGED WITH PROTONIX PER [facility] 01/03/20 Benzonatate (BENZONATATE) 100 Mg Capsule, 100 MG PO TID, CAP 07/13/19 Ursodiol (ACTIGALL) 300 Mg Capsule, 2 CAP PO BID 07/13/19 Zinc Sulfate (ZINC SULFATE) 220 Mg Tablet, 220 MG PO DAILY, #30 CAP 11/29/17 Magnesium Oxide (MAGNESIUM OXIDE) 400 Mg Tablet, 400 MG PO DAILY, TAB 11/29/17 NIKOS KEYS DO Feb 27, 2020 02:31
[2020-02-27 02:53] LABS: BASOPHILS % 0.1 % (0.0-1.0); EOSINOPHILS % 0.1 % (0.0-6.0); HEMATOCRIT 35.5 % (34.2-44.1); HEMOGLOBIN 11.7 g/dL (12.0-16.0); LYMPHOCYTES # (AUTO) 0.8 (1.0-3.2); LYMPHOCYTES % 7.1 % (18.0-39.1); MEAN CORPUSCULAR HEMOGLOBIN 33.1 pg (28-32); MEAN CORPUSCULAR VOLUME 100.3 fL (81-99); MONOCYTES # (AUTO) 1.5 (0.2-0.8); NEUTROPHILS # (AUTO) 9.3 (2.1-6.9); NEUTROPHILS % 78.3 % (38.7-80.0); PLATELET COUNT 106 x10e3/uL (140-360); RED BLOOD COUNT 3.54 x10e6/uL (3.6-5.1); RED CELL DISTRIBUTION WIDTH 15.7 % (11.7-14.4)
[2020-02-27 03:11] LABS: ALBUMIN 2.5 g/dL (3.5-5.0); ALBUMIN/GLOBULIN RATIO 0.7 (0.8-2.0); ANION GAP 13.2 mmol/L (8-16); CALCIUM 9.2 mg/dL (8.4-10.2); CREATININE, SERUM 2.23 mg/dL (0.57-1.11); POTASSIUM 4.2 mmol/L (3.5-5.1)
[2020-02-27] MEDS ORDERED: SODIUM CHLORIDE 0.9% 1000ML 1,000 ML IV STA (03:17)
[2020-02-27] MEDS ORDERED: DIATRIZOATE MEGL/DIATRIZOA SOD 30 ML BTL PO ONE (03:40)
[2020-02-27] MEDS ORDERED: SODIUM CHLORIDE 0.9% 1000ML 0 ML ONE (03:54)
--- OUTSIDE RECORDS SUMMARY | 2020-02-27 04:32 | XMS REPORT | Clinical Summary ---
Author Author [facility] Organization [facility] Address Unknown Phone Unavailable Care Team Providers Care Machine Tailer Name Role Phone PCP Unavailable Allergies Comments [...] lactulose (CONSTULOSE) 10 [place] [address] mL 3 gram/15 mL oral mouth 2 [...] and Up 02/07/2014 Results Not on fileafter 02/26/2019 Insurance Type Payer Benefit Subscriber ID Effective Phone Address Plan / Dates Group MEDICARE MEDICARE xxxxxxxxxx 2015-P [phone] [address] [place] [address] Advance Directives Date Inactivated Comments Code Status Date Activated 03/30/2015 6:20 PM Full Code 03/28/2015 12:55 AM 02/10/2015 6:05 PM Full Code 02/08/2015 8:43 PM
--- OUTSIDE RECORDS SUMMARY | 2020-02-27 04:32 | XMS REPORT | Clinical Summary ---
Author Author [facility] Address Unknown Phone Unavailable Care Team Providers Care Bilingual Instructor Name Role Phone Yoandy Dorman John PCP [...] pending further imaging/testing and official review at [facility]. Chronic hepatitis C without hepatic coma 10/27/2017 [...] She will meet with our trans plant high density press operator. Encourage decreased oral intake and exercise as [...] Encounters Care Team Description Date Type Specialty Fantasma Pina NP 02/24/2020 Documentation Hepatology Palma Arango RN 02/10/2020 Abstract Hepatology Polo Gabriel MD Fuller, [place], NP Cirrhosis of liver with ascites, unspeci fied hepatic cirrhosis type (HCC) (Primary Dx); Hepatic encephalopathy (HCC); HCC surveillance; Screening for immunity; Portal hypertension 02/03/2020 Office Visit Hepatology Vinicius Gibbs MA Appointment 02/02/2020 Telephone Hepatology Palma Arango RN 01/25/2020 Documentation Hepatology Fantasma Pina NP telemedicine appointment 01/20/2020 Telephone Hepatology Africa Florence MA Appointment 01/18/2020 Telephone Hepatology Nikki Chavezicial Consult 01/04/2020 Telephone Transplant Hepatolo gy Fantasma Pina NP follow up call - patient hospitalized 01/04/2020 Telephone Hepatology Berry Pacheco PA Hepatic encephalopathy (HCC) (Primary Dx ); Screening for cancer 12/10/2019 Orders Only Hepatology Zunilda Grider (Xifaxan) 11/25/2019 Telephone Hepatology Palma Arango RN 11/25/2019 Documentation Hepatology Fantasma Pina NP Screening for cancer (Primary Dx); Cirrhosis of liver with ascites, unspecified hepatic cirrhosis type (HCC); Hepatic encephalopathy (HCC); HCC surveillance; Other ascites 10/20/2019 Audio - Hepatology Telemedicine Gricelda Vargas MA 10/19/2019 Documentation Hepatology Gricelda Vargas MA appt tomorrow 10/19/2019 Telephone Hepatology Vinicius Gibbs MA Appointment 10/19/2019 Telephone Hepatology Vinicius Gibbs MA Appointment 10/12/2019 Telephone Hepatology Palma Arango RN 10/06/2019 Documentation Hepatology Palma Arango, RN Telephone Call Follow Up 09/27/2019 Telephone HepatPalma Sherwood, allergy and immunology specialist Follow Up 09/21/2019 Telephone Hepatology Palma Arango, allergy and immunology specialist Follow Up 09/15/2019 Telephone Hepatology Palma Arango, RN 09/09/2019 Documentation Hepatology Palma Arango RN 09/09/2019 Documentation Hepatology Africa López MA Ursodiol medication 09/08/2019 Telephone Hepatology Africa López MA 09/08/2019 Abstract Hepatology Palma Arango RN 09/07/2019 Documentation Hepatology Palma Arango, RN Follow-up 09/03/2019 Telephone Hepatology Palma Arango RN 08/12/2019 Documentation Hepatology Palma Arango, RN Follow-up 08/12/2019 Telephone Hepatology Palma Arango RN 08/12/2019 Abstract Hepatology Palma Arango RN 08/11/2019 Telephone Hepatology Fantasma Pina NP Results 08/06/2019 Telephone Hepatology Palma Arango RN Follow-up 07/28/2019 Telephone Hepatology Palma Arango, wire preparation worker Follow Up 07/19/2019 Telephone Hepatology Palma Arango, RN Follow-up (Follow Up Regarding Due for B loodwork) 07/19/2019 Telephone Hepatology Palma Arango, RN Follow-up 07/08/2019 Telephone Hepatology Palma Arango RN 06/24/2019 Telephone Hepatology Fantasma Pina NP Cirrhosis of liver with ascites, unspeci fied hepatic cirrhosis type (HCC) (Primary Dx) 06/24/2019 Orders Only Hepatology Palma Arango RN 06/24/2019 Abstract Hepatology Palma Arango, RN Telephone Call Follow Up 06/22/2019 Telephone Hepatology Palma Arango, RN other (To Follow up on Completion of Blo odwork) 06/07/2019 Telephone Hepatology Polo Gabriel MD No Show 06/02/2019 Hospital Radiology Encounter Africa López MA 05/17/2019 Abstract Hepatology Fantasma Pina NP returning call 05/12/2019 Telephone Hepatology Fantasma Pina NP Results 05/11/2019 Telephone Hepatology Palma Arango RN 04/27/2019 Abstract Hepatology Shakir Vega FNP Lab results 04/26/2019 Telephone Hepatology Shakir Vega FNP Returning SCADA ENGINEER call of the day 04/26/2019 Telephone Hepatology Fantasma Pina NP med list 04/15/2019 Telephone Hepatology Ulices Robert MD Fuller, [place], NP Cirrhosis of liver with ascites, unspeci fied hepatic cirrhosis type (HCC) (Primary Dx); HCC surveillance; Other ascites; Screening for immunity 04/14/2019 Office Visit Hepatology Fantasma Pina NP update med list 04/14/2019 Telephone Hepatology after 02/26/2019 Social History Date Tobacco Use Types Packs/Day Years Used Former Smoker Smokeless Tobacco: Never Used Alcohol Use Drinks/Week oz/Week Comments No Sex Assigned at Date Recorded Not on file Industry Job Start Date Occupation Not on file Not on file Not on file Travel End Travel History Travel Start No recent travel history available. Last Filed Vital Signs Time Taken Vital Sign Reading 02/03/2020 2:53 PM CDT Blood Pressure 139/88 02/03/2020 2:53 PM CDT Pulse 67 02/03/2020 2:53 PM CDT Temperature 37 C (98.6 F) 02/03/2020 2:53 PM CDT Respiratory Rate 18 02/03/2020 2:53 PM CDT Oxygen Saturation 94% - Inhaled Oxygen - Concentration 02/03/2020 2:53 PM CDT Weight 96.5 kg (212 lb 12.8 oz) 02/03/2020 2:53 PM CDT Height 160 cm (5' 3") 02/03/2020 2:53 PM CDT Body Mass Index 37.7 Plan of Treatment Care Team Description Date Type Specialty 04/05/2020 Office Visit Hepatology Health Maintenance Due Date Last Done Comments MEDICARE ANNUAL WELLNESS 02/24/2017 (YEAR 2 or FIRST YEAR if no IPPE) INFLUENZA VACCINE (#1) 2020 BREAST CANCER SCREENING 06/23/2020 06/23/2018 PNEUMOCOCCAL 65+ 08/11/2022 09/17/2018, 018, 02/07/2014 HIGH/HIGHEST RISK (2 of 2 - PPSV23) COLON CANCER SCREENING 04/01/2027 04/01/2017 COLONOSCOPY Results Not on fileafter 02/26/2019 Insurance Payer Benefit Subscriber ID Type Phone Address Plan / Group [facility] MEDIC[facility] ADV [phone] Advance Directives For more information, please contact: [facility] [address] [place] [address] Date Inactivated Comments Code Status Date Activated 09/04/2018 4:14 PM Full Code 09/04/2018 5:29 AM This code status was determined by: Patient 04/05/2017 12:48 AM Full Code 04/04/2017 8:15 AM This code status was determined by: Patient
--- OUTSIDE RECORDS SUMMARY | 2020-02-27 04:35 | XMS REPORT | Continuity of Care Document ---
Author Author [facility] t Organization [facility] Address [address] [place] [address] Phone Unavailable Care Team Providers Care Information Management Specialist Name Role Phone NONSTAFF PCP Unavailable Silvana HONEYCOMB DECAPPER, Spring Fantasma Attphys Conchita RN, Zafar Waldrop Attphys Unavailable Neris Plascencia MD Attphys [phone] Walter Gibbs MA Attphys Unavailable Africa Florence MA Attphys Unavailable Andrea RYAN Attphys Unavailable Moi Chavez Attphys Unavailable Peace Weaver Attphys Zunilda Grider Attphys Unavailable Gricelda Vargas MA Attphys Unavailable Africa López MA Attphys Unavailable Yovana Macias Attphys Wanda Robert MD Attphys SUNDAR BURNETTE Attphys Unavailable DEMETRIUS STOKES Attphys Unavailable Maya RUDD Attphys Unavailable NERIS PLASCENCIA Attphys Unavailable Kristin VARNER Attphys Unavailable Andrea MCNEILL Attphys Unavailable JAIDEN PALMER Attphys Unavailable Andrea RYAN Admphys Unavailable SUNDAR BRUNETTE Admphys Unavailable Payers Payer Name Policy Type Policy Number Effective Date Expiration Date Shakir browning [employer] MEDICARE ADVxxxxxxxxxxx xxxxxxxxxxx [facility] [employer] Medicare Advantage [id number] 2016 00:0 0:00 [facility] Problems Condition Name Condition Details Condition Category Status Onset Date Resolution Date Last Treatment Date Treating Clinician Comments Source Pre-transplant evaluation for liver transplant Pre-tra nsplant evaluation for liver transplant Disease Active 2018-04-30 00:00:00 Last Assessment & Plan: She is an acceptable candidate for liver transplant pending further imaging/testing and official review at [facility] Chronic hepatitis C without hepatic coma Chronic hepat itis C without hepatic coma Disease Active 2017-10-27 00:00:00 [facility] Cirrhosis of liver with ascites, unspecified hepatic c irrhosis type Cirrhosis of liver with ascites, unspecified hepatic cirrhosis type Disease Activ e 2017-10-27 00:00:00 Last Assessment & Plan: Cirr hosis secondary to Hep C. [facility] Preoperative cardiovascular examination Preoperative cardiov ascular examination Disease Active 2017-04-04 00:00:00 [facility] Ascites Ascites Disease Active 2016-07-25 00:00:00 Overview: Controlled with spironolactone 100 mg daily. Not requiring taps [facility] Hepatic encephalopathy Hepatic encephalopathy Disease Active 2016-07-25 00:00:00 Overview: Last A ssessment & Plan: She takes lactulose TID, not currently encephalopathic 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 Being referred to GI for repeat EGD for surveillance [facility] Morbidly obese Morbidly obese Disease Active 2016-07-25 00:00:00 Last Assessment & Plan: BMI is 44. She will meet with our transplant can striper. Encourage decreased oral intake and exercise as tolerated. [facility] Cirrhosis Cirrhosis Disease Active 2016-06-17 00:00:00 Last Assessment & Plan: Meld 17 with portal HTN and ascites, candidate for liver transplant listing [facility] Portal hypertension Portal hypertension Disease Active 2016-06-17 00:00 :00 Last Assessment & Plan: Portal hypertens ion with evidence by encephalopathy, varices, and ascites. [facility] Screening for immunity Screening for immunity Disease Active 2016-06-17 00:00:00 [facility] Chronic portal vein thrombosis Chronic portal vein thrombosis Disea se Active 2016-06-17 00:00:00 [facility] Metabolic syndrome Metabolic syndrome Disease Active 2016-06-17 00:00:[address] 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, with long-term current use of insulin Disease Active 2016-02-22 00:00:00 [facility] Type 2 diabetes mellitus without complic ation, without long-term current use of insulin Type 2 diabetes mellitus without complic ation, without long-term current use of insulin Disease Active 2015-12-27 00:00:00 [facility] Hepatic cirrhosis Cirrhosis Problem Active 2015-12-06 00:00:00 [facility] Diabetes mellitus Diabetes Problem Active 2015-12-06 00:00:00 [facility] Sinusitis Sinusitis Problem Active 2015-12-06 00:00:00 [facility] Weakness Weakness Problem Active 2015-12-06 00:00:00 [facility] Portal hypertension with esophageal and gastric varice s Portal hypertension with esophageal and gastric varices Disease Active 2015-10-11 00:00:00 [facility] Partial portal vein thrombosis (no A/C given history o f ICH) Partial portal vein thrombosis (no A/C given history of ICH) Disease Active 2015-10-11 00:00: 00 [facility] Left shoulder pain Left shoulder pain Disease Active 2015-09-18 00:00:0 0 [facility] Impaired mobility and activities of daily living Impai red mobility and activities of daily living Disease Active 2015-03-30 00:00:00 [facility] Thrombocytopenia due to hypersplenism Thrombocytopenia due t o hypersplenism Disease Active 2015-03-28 00:00:00 [facility] Hypothyroidism Hypothyroidism Disease Active 2015-03-28 00:00:00 [facility] Iatrogenic hyperthyroidism Iatrogenic hyperthyroidism Disease Active 2015-03-28 00:00:00 [facility] HTN (hypertension), benign HTN (hypertension), benign Disease Active 2015-03-27 00:00:00 [facility] Left-sided weakness Left-sided weakness Disease Active 2015-02-08 00:00 :00 [facility] Intraparenchymal hematoma of brain Intraparenchymal hematoma of brain Disease Active 2015-02-08 00:00:00 [facility] Diabetes Diabetes Disease Active 2014-04-28 00:00:00 [facility] Hepatic encephalopathy Hepatic encephalopathy syndrome Problem Active 2014-04-18 00:00:00 [facility] Chronic hepatitis C with cirrhosis Cirrhosis, hepatitis C Problem Active 2014-04-18 00:00:00 [facility] SOB (shortness of breath) SOB (shortness of breath) Disease Ac tive 2013-12-08 00:00:00 [facility] MDD (major depressive disorder) MDD (major depressive disorder) Dis ease Active 2013-11-23 00:00:00 [facility] Chronic hepatitis C with cirrhosis (hepa tic sequalae thrombocytopenia 2/2 splenic sequestration w/ splenomegaly, partial portal vein occlusion, portal hypertension w/ varices, macrocytosis) Chronic hepatitis C with cirrhosis (hepatic sequalae thrombocytopenia 2/2 splenic sequestration w/ splenomegaly, partial portal vein occlusion, portal hypertension w/ varices, macrocytosis) Disease Active 2013-09-08 00:00:00 [facility] Splenomegaly Splenomegaly Disease Active 2012-09-23 00:00:00 Overview: Ct abd - spleen 13.7cm [facility] Altered mental status Change in mental status Problem Active [facility] Coagulation disorder Coagulopathy Problem Active [facility] Dehydration Dehydration Problem Active [facility] Hepatitis C virus infection Hepatitis C Problem Active [facility] Spontaneous bacterial peritonitis SBP (spontaneous bacterial peritonitis) Problem Active [facility] Cough Cough Problem Active [facility] Sepsis Problem Active [facility] Abdominal pain Problem Active [facility] Pleural effusion Problem Active [facility] HLD (hyperlipidemia) HLD (hyperlipidemia) Disease Active [facility] Obesity Obesity Disease Active [facility] ZION positive ZION positive Disease Active [facility] UTI (urinary tract infection) UTI (urinary tract infection) Disease Active [facility] Stroke Stroke Disease Active [facility] Asthma Asthma Disease Active [facility] Hepatic encephalopathy Hepatic encephalopathy Disease Active [facility] Encephalomalacia on imaging study Encephalomalacia on imaging st [facility] Disease Active [facility] ICH (intracerebral hemorrhage) ICH (intracerebral hemorrhage) Disease Active [facility] Gastric ulcer Gastric ulcer Disease Active [facility] Vitamin D deficiency Vitamin D deficiency Disease Active [facility] Allergies, Adverse Reactions, Alerts Allergy Name Allergy Type Status Severity Reaction(s) Onset Date Inacti ve Date Treating Clinician Comments Source No Known Allergies DA Active U 2015-10-04 00:00:00 [facility] Family History Family Member Diagnosis Comments Start Date Stop Date Source Natural father [facility] Natural father Hypertension [facility] Natural mother Arthritis [facility] Natural mother Cancer [facility] Natural mother Diabetes [facility] Natural mother [facility]pertension [facility] Natural sister Asthma [facility] Social History Social Habit Start Date Stop Date Quantity Comments Source Sex Assigned [facility] Alcohol intake 2015-12-27 00:00:00 2015-12-27 00:00:00 Current non-drinker of alcohol (finding) [facility] Smoking Status Start Date Stop Date Source Former smoker 2015-12-27 00:00:00 2015-12-27 00:00:00 [facility] Medications Ordered Medication Name Filled Medication Name Start Date Stop Da te Current Medication? Ordering Clinician Indication Dosage Frequency Signature (SIG) Comments Components Source rifAXIMin 550 mg Tab 2019-12-10 14:03:35 2019-12-10 00:00:00 No 550mg Q.5D Take 550 mg by mouth 2 (two) times daily. [facility] rifAXIMin (XIFAXAN) 550 mg Tab 2019-12-10 00:00:00 Yes Hepatic encephalopathy (HCC) 550mg Q.5D Take 1 tablet (550 mg total) by mouth 2 (two) times daily. [facility] ursodioL (ACTIGALL) 300 mg capsule 2019-10-20 00:00:00 05-30-26 23:59:00 No Cirrhosis of liver with ascites, unspecified hepatic c irrhosis type (HCC) 600mg Q.5D Take 2 capsules (600 mg total) by mouth 2 (two) times daily. [facility] Albuterol Sulfate (Proventil Hfa) 6.7 Gm HFA.AER.AD Al buterol Sulfate (Proventil Hfa) 6.7 Gm HFA.AER.AD 2019-07-14 14:51:00 Yes 6.7 As Needed for Shortness Of Breath [facility] ursodiol (ACTIGALL) 300 mg capsule 2019-06-24 00:00:00 00:00:00 No Cirrhosis of liver with ascites, unspecified hepatic c irrhosis type (HCC) 600mg Q.5D Take 2 capsules (600 mg total) by mouth 2 (two) times daily. [facility] insulin glargine (LANTUS) 100 unit/mL injection 2018-09-04 07:06 :57 Yes 60U Q.5D Inject 60 Units subcutaneously 2 (two) times abhishek ly Use as directed . [facility] insulin aspart U-100 (NOVOLOG) 100 unit/mL injection 2 07:06:57 Yes 10U Q.5D Inject 10 Units subcutaneously 2 (two) t imes daily. [facility] furosemide (LASIX) 40 MG tablet 2018-09-04 05:57:40 Yes 40mg QD Take 40 mg by mouth daily. [facility] propranolol (INDERAL) 10 MG tablet 2018-09-04 05:57:39 Yes 10mg Q.5D Take 10 mg by mouth 2 (two) times daily. [facility] ALBUTEROL SULFATE (PROVENTIL HFA INHL) 2017-04-04 08:39:05 Yes 2{puff} Inhale 2 puffs by mouth via inhaler 2 (two) times daily as neede d. [facility] omeprazole (PRILOSEC) 40 MG capsule 2017-04-04 08:39:05 Yes 40mg QD Take 40 mg by mouth daily. [facility] polyethylene glycol (GLYCOLAX) 17 gram packet 2017-04-04 08:39:0 5 Yes 17g QD Take 17 g by mouth daily. [facility] Amoxicillin/Potassium Clav (Amox Tr-K Clv 875-125 Mg T ab) 1 Each TABLET Amoxicillin/Potassium Clav (Amox Tr-K Clv 875-125 Mg Tab) 1 Each TABLET 2016-06-24 18:30:00 2016-12-02 00:00:00 No 875 Every 12 Hours [facility] lactulose (CHRONULAC) 10 gram/15 mL solution 2016-06-17 00:00:00 Yes 20g [id number] Take 20 g by mouth 3 (three) times daily . [facility] levothyroxine (SYNTHROID, LEVOTHROID) 125 MCG tablet 2 00:00:00 Yes 125ug Take 125 mcg by mouth. C [facility] spironolactone (ALDACTONE) 100 MG tablet 2016-04-23 00:00:00 Yes 100mg QD Take 100 mg by mouth daily . [facility] levothyroxine (SYNTHROID) 112 mcg tablet 2016-01-16 00:00:00 Yes Other specified hypothyroidism 112ug QD Take 1 tablet by mouth daily. [facility] polyethylene glycol (GLYCOLAX) 17 gram/dose oral powder 2016-01-10 00:00:00 Yes Other constipation Mix 17 gr ams into 4 to 8 ounces of water, juice, soda, tea or coffee and drink as directed, one time a day. [facility] polyethylene glycol (MIRALAX) 17 gram/dose oral powder 2015-12-29 00:00:00 Yes Slow transit constipation Mi x 17 grams into 4 to 8 ounces of water, juice, soda, tea or coffee and drink as directed, one time a day. [facility] calcitriol (ROCALTROL) 0.25 mcg capsule 2015-12-27 00:00:00 Yes Vitamin D deficiency .25ug QD Take 1 capsule by mouth daily. [facility] lactulose (CONSTULOSE) 10 gram/15 mL oral solution 2015-11 00:00:00 Yes Hepatic cirrhosis due to chronic hepatitis C infection 20g Q.5D Take 30 mL by mouth 2 times daily for 90 days. [facility] albuterol (PROVENTIL) 2.5 mg /3 mL (0.083 %) nebulizer solut ion 2015-12-18 00:00:00 Yes Medication refill 2.5mg In goff 3 mL by mouth every 6 hours as needed for Wheezing or Shortness of Breath (Patient has nebulizer machine at home). [facility] dexlansoprazole (DEXILANT) 30 mg delayed release capsule 2015-11-19 00:00:00 Yes GERD (gastroesophageal reflux disease) 30mg QD Take 1 capsule by mouth daily [facility] cetirizine (ZYRTEC) 10 mg tablet 2015-10-05 00:00:00 Yes Medication refill 10mg QD Take 1 tablet by mouth daily. [facility] predniSONE (DELTASONE) 20 mg tablet 2015-10-05 00:00:00 Yes Medication refill 60mg QD Take 3 tablets by mouth daily. [facility] codeine-guaiFENesin (CHERATUSSIN AC) 10-100 mg/5 mL syrup 2015-10-05 00:00:00 Yes Medication refill 5mL Take 5 mL by mouth 3 times daily as needed for Cough. [facility] ofloxacin (OCUFLOX) 0.3 % ophthalmic solution 2015-10-05 00: 00:00 Yes Bilateral acute serous otitis media, recurrence not specified Instill 5 drops to each ear daily for 10 days. Ok for pharmacist to 0.3% ofloxacin eye solution for ear treatment.. [facility] furosemide (LASIX) 20 mg tablet 2015-09-06 00:00:00 Yes Hepatic cirrhosis, unspecified hepatic cirrhosis type 20mg Q.5D Take 1 tablet by mouth 2 times daily. [facility] spironolactone (ALDACTONE) 100 mg tablet 2015-09-06 00:00:00 Yes Hepatic cirrhosis, unspecified hepatic cirrhosis type 100mg QD Take 1 tablet by mouth daily [facility] propranolol (INDERAL) 10 mg tablet 2015-09-06 00:00:00 Yes Essential hypertension with goal blood pressure less than 140/90 10mg Q.5D Take 1 tablet by mouth 2 times daily. [facility] atorvastatin (LIPITOR) 10 mg tablet 2015-09-06 00:00:00 Yes Cerebrovascular accident (CVA) due to other mechanism 10mg Take 1 tablet by mouth at bedtime nightly. [facility] albuterol (VENTOLIN HFA,PROVENTIL HFA,PROAIR HFA) 90 mcg/act uation inhaler 2015-09-06 00:00:00 Yes Acute bronchitis, unspecified organism 2{puff} Inhale 2 Puffs by mouth 4 times daily as needed for Wheezing. [facility] lactulose (CHRONULAC) 10 gram/15 mL oral solution 2015-05-31 00:00:00 Yes Medication refill 30g Take 45 mL by mouth 3 times daily for 90 days. [facility] hydrocortisone 2.5 % topical cream 2014-05-31 00:00:00 Yes Rash and other nonspecific skin eruption Q.5D Apply to affected area 2 times d aily. [facility] sertraline (ZOLOFT) 50 mg tablet 2014-03-30 00:00:00 Yes MDD (major depressive disorder) Take 1/2 tab by tk th daily for 1 week; then increase to 1 full tab daily for depression. [facility] Benzonatate Benzonatate Yes 100 Three Times A Da y [facility] Dexlansoprazole (Dexilant) 30 Mg CAP. Dexlansopra zole (Dexilant) 30 Mg CAP. Yes [facility] Furosemide (Lasix) 40 Mg TABLET Furosemide (Lasix) 40 Mg TABLET Yes 40 Daily [facility] Glimepiride Glimepiride Yes C [facility] Insulin Glargine (Lantus 3ML Pen) 100 Units/1 Ml INJ I nsulin Glargine (Lantus 3ML Pen) 100 Units/1 Ml INJ Yes 70 Bedtime [facility] Lactulose Lactulose Yes 20 Three Times A Day [facility] Levothyroxine Sodium (Synthroid) 125 Mcg TAB Levothyro xine Sodium (Synthroid) 125 Mcg TAB Yes 125 Daily [facility] Levothyroxine Sodium (Synthroid) 125 Mcg TAB Levothyro xine Sodium (Synthroid) 125 Mcg TAB Yes 125 Today At 6:30AM [facility] Magnesium Oxide Magnesium Oxide Yes 400 Daily [facility] Omeprazole Omeprazole Yes Daily [facility] Propranolol Hcl Propranolol Hcl Yes 10 Twice A Day [facility] Propranolol Hcl Propranolol Hcl Yes 10 Twice A Day [facility] Rifaximin (Xifaxan) 550 Mg TABLET Rifaximin (Xifaxan) 550 Mg TABLET Yes 1 Twice A Day [facility] Spironolactone Spironolactone Yes 100 Daily [facility] Ursodiol (Actigall) 300 Mg CAPSULE Ursodiol (Actigall) 300 Mg CAPSULE Yes 2 Twice A Day [facility] Zinc Sulfate Zinc Sulfate Yes 220 Daily [facility] Albuterol Sulfate (Proventil Hfa) 6.7 Gm HFA.AER.AD Al buterol Sulfate (Proventil Hfa) 6.7 Gm HFA.AER.AD 2019-07-14 00:00:00 No As Needed for Shortness Of Breath [facility] Albuterol Sulfate (Ventolin Hfa) 18 Gm HFA.AER.AD Albu terol Sulfate (Ventolin Hfa) 18 Gm HFA.AER.AD 2019-07-13 00:00:00 No Ev aureliano 4 Hours [facility] Cholecalciferol (Vitamin D3) (Vitamin D) 1,000 Unit TA BLET Cholecalciferol (Vitamin D3) (Vitamin D) 1,000 Unit TABLET 2019-07-13 00:00:00 No 5000 Weekly [facility] Insulin Aspart (Novolog) 100 Unit/1 Ml CARTRIDGE Insul in Aspart (Novolog) 100 Unit/1 Ml CARTRIDGE 2019-07-13 00:00:00 No 6 Befo re Meals [facility] Xifaxan Xifaxan 2019-07-13 00:00:00 No 550 Twice A D ay [facility] Metformin Hcl Metformin Hcl 2017-11-29 00:00:00 No 500 Twice A Day [facility] Polyethylene Glycol 3350 Polyethylene Glycol 3350 2017-11-29 00: 00:00 No 17 As Needed as needed for Constipation [facility] Spironolactone (Aldactone) 100 Mg TABLET Spironolacton e (Aldactone) 100 Mg TABLET 2017-11-29 00:00:00 No 100 Daily [facility] Glimepiride Glimepiride 2017-11-11 00:00:00 No 4 D aily [facility] Dexlansoprazole (Dexilant) 30 Mg CAP. Dexlansopra zole (Dexilant) 30 Mg CAP. 2017-01-11 00:00:00 No 30 Daily [facility] Propranolol Hcl Propranolol Hcl 2016-06-28 00:00:00 No 10 Daily [facility] Albuterol Sulfate (Proventil Hfa) 6.7 Gm HFA.AER.AD Al buterol Sulfate (Proventil Hfa) 6.7 Gm HFA.AER.AD 2016-06-18 00:00:00 No 1 Every 4 Hours as needed for Shortness Of Breath [facility] Amlodipine Besylate Amlodipine Besylate 2016-06-18 00:00:00 No 10 Daily At 1500 [facility] Fluticasone Propionate (Flonase) 16 Gm SPRAY.SUSP Flut icasone Propionate (Flonase) 16 Gm SPRAY.SUSP 2016-06-18 00:00:00 No 1 Twice A Day [facility] Hydrocodone Bit/Acetaminophen ([place] 5-325 Tablet) 1 E ach TABLET Hydrocodone Bit/Acetaminophen ([place] 5-325 Tablet) 1 Each TABLET 2016-06-18 00: 00:00 No 1 Every 8 Hours as needed for Pain [facility] Insulin Detemir (Levemir 3ML Flexpen*) 100 Units/Ml IN J Insulin Detemir (Levemir 3ML Flexpen*) 100 Units/Ml INJ 2016-06-18 00:00:00 No [facility] Lactulose Lactulose 2016-06-18 00:00:00 No 2 Twice A Day [facility] Levothyroxine Sodium Levothyroxine Sodium 2016-06-18 00:00:00 No 137 Daily At 1500 [facility] Omeprazole Omeprazole 2016-06-18 00:00:00 No 40 Abhishek ly Prn [facility] Polyethylene Glycol 3350 Polyethylene Glycol 3350 2016-06-18 00: 00:00 No 17 Daily [facility] Rifaximin (Xifaxan) 550 Mg TABLET Rifaximin (Xifaxan) 550 Mg TAB LET 2016-06-18 00:00:00 No 1 Twice A Day [facility] Sertraline Hcl Sertraline Hcl 2016-06-18 00:00:00 No 50 Daily [facility] Spironolactone Spironolactone 2016-06-18 00:00:00 No 100 Daily At 1500 [facility] Immunizations Ordered Immunization Name Filled Immunization Name Date Status Comments Source Pneumococcal 7-valent conj 0.5 mL injection 2014-02-07 00: 00:00 Completed [facility] PNEUMOCOCCAL 23-VALPS VACCINE 25 MCG/0.5 ML INJECTION 2014-02-07 00:00:00 [facility] Vital Signs Vital Name Observation Time Observation Value Comments Source Systolic blood pressure 2020-02-03 14:53:00 139 mm[Hg] [facility] Diastolic blood pressure 2020-02-03 14:53:00 88 mm[Hg] [facility] Heart rate 2020-02-03 14:53:00 67 /min [facility] Body temperature 2020-02-03 14:53:[address] [facility] Respiratory rate 2020-02-03 14:53:00 18 /min [facility] Body height 2020-02-03 14:53:00 160 cm [facility] Body weight Measured 2020-02-03 14:53:[address] [facility] BMI 2020-02-03 14:53:00 37.70 kg/m2 [facility] Oxygen saturation in Arterial blood by Pulse oximetry 02-02 14:53:00 94 /min [facility] Body Temperature 2020-01-05 16:09:00 97.6 [degF] [facility] Weight 2020-01-05 00:22:00 212.19 [lb_av] [facility] BMI (Body Mass Index) 2020-01-05 00:22:00 37.6 kg/m2 [facility] Body Temperature 2019-09-28 11:52:00 98.4 [degF] [facility] BMI (Body Mass Index) 2019-09-25 17:12:00 41.3 kg/m2 [facility] Weight 2019-09-25 09:41:00 226 [lb_av] [facility] Procedures Procedure Date / Time Performed Performing Clinician Sourc e Thoracentesis with ultrasound guidance 2020-01-05 00:00:00 [facility] X-ray of chest, single view 2020-01-05 00:00:00 [facility] Computed tomography of abdomen and pelvis with contrast 00:00:00 [facility] Computed tomography of chest with contrast 2020-01-03 00:00:00 [facility] US Abdomen limited 2019-09-27 00:00:00 [facility] Computed tomography of abdomen and pelvis with contrast 00:00:00 [facility] Computed tomography of chest with contrast 2019-09-25 00:00:00 [facility] Computed tomography of abdomen and pelvis with contrast 00:00:[address] [facility] [address] of abdomen and pelvis without contrast 2019-09-20 00:00:00 [facility] US Abdomen limited 2019-07-21 00:00:00 MARKO HOLLINS [facility] Computed tomography of abdomen and pelvis with contrast 2019 00:00:00 ANSON TELLES [facility] X-ray of chest, two views 2019-07-13 00:00:00 ANSON TELLES [facility] Computed tomography of chest with contrast 2019-07-13 00:00:00 NIKOS BAÑUELOS [facility] US abdomen complete 2019-07-13 00:00:00 MARKO HOLLINS [facility] Plan of Care Planned Activity Planned Date Details Comments Source Future Scheduled Test 2027-04-01 00:00:00 Screening for iris gnant neoplasm of colon (procedure) [code = 025110735] [facility] Future Scheduled Test 2022-08-11 00:00:00 PNEUMOCOCCAL 65+ H IGH/HIGHEST RISK (2 of 2 - PPSV23) [code = PNEUMOCOCCAL 65+ HIGH/HIGHEST RISK (2 of 2 - PPSV23)] [facility] Future Scheduled Test 2020-06-23 00:00:00 Screening for iris gnant neoplasm of breast (procedure) [code = 273857363] [facility] Future Scheduled Test 2020-01-25 00:00:00 INFLUENZA VACCINE (#1) [code = INFLUENZA VACCINE (#1)] [facility] Scheduled Test 2017-02-24 00:00:00 MEDICARE ANNUAL WE LLNESS (YEAR 2 or FIRST YEAR if no IPPE) [code = MEDICARE ANNUAL WELLNESS (YEAR 2 or FIRST YEAR if no IPPE)] [facility] Scheduled Test 2017-02-13 00:00:00 DM Retinal Exam (Y early) [code = DM Retinal Exam (Yearly)] [facility] Scheduled Test 2016-07-06 00:00:00 Hemoglobin A1c patricia surement (procedure) [code = 23923106] [facility] Scheduled Test 2016-05-22 00:00:00 Urine screening fo r protein (procedure) [code = 701311731] [facility] Scheduled Test 2003-08-18 00:00:00 Screening for iris gnant neoplasm of colon (procedure) [code = 402008116] [facility] Scheduled Test 1993 00:00:00 Breast Cancer Scrn (Yearly) [code = Breast Cancer Scrn (Yearly)] [facility] Scheduled Test 1971-08-18 00:00:00 DM Foot Exam (Year ly) [code = DM Foot Exam (Yearly)] [facility] Pleural Effusion [facility] Encounters Start Date/Time End Date/Time Encounter Type Admission Type [facility] Care Department Encounter ID Source 2019-09-25 15:34:00 2019-09-28 14:32:00 Discharged Inpatient 1 [facility] [id number] [facility] 2019-09-21 00:20:00 2019-09-23 16:52:00 Discharged Inpatient 1 [facility] [id number] [facility] 2019-07-19 17:44:00 2019-07-21 12:46:00 Discharged Inpatient 1 [facility] [id number] [facility] 2019-07-13 13:53:00 2019-07-14 16:25:00 Discharged Inpatient (obs) 1 [facility] [id number] [facility] 2018-07-10 11:21:00 2018-07-10 17:27:00 Departed Emergency Room 1 KENDALL RUDD [facility] [id number] [facility] 2017-11-29 05:44:00 2017-12-01 12:56:00 Discharged Inpatient 1 [facility] [id number] [facility] 2017-11-10 14:15:00 2017-11-11 13:30:00 Discharged Inpatient (obs) 1 SIDNEYJAIDEN ANDREWS [facility] [id number] [facility] 2017-03-03 17:08:00 2017-03-04 00:35:00 Departed Emergency Room ER OSITOFRANCES [facility] [id number] [facility] Results Test Description Test Time Test Comments Results Result Comments Source GLUBED 2020-02-26 12:01:00 Test Item GLUBED (test code = GLUBED) 368 mg/dL 74-106 H Performed by certified bone process operator at [facility] [id number] 07:43:00* Test Item Value Reference Range Interpretation Comments GLUBED (test code = GLUBED) 342 mg/dL 74-106 H Performed by certified bone process operator at [facility] BASIC METABOLIC [id number] 06:21:00* Test Item Value Reference Range Interpretation Comments SODIUM (test code = NA) 137 mmol/L 136-145 N POTASSIUM (test code = K) 4.8 mmol/L 3.5-5.1 N CHLORIDE (test code = CL) 102.0 mmol/L 98-107 N CARBON DIOXIDE (test code = CO2) 30.0 mmol/L 21-32 N ANION GAP (test code = GAP) 9.8 10-20 L GLUCOSE (test code = GLU) 340 mg/dL 74-106 H BLOOD UREA NITROGEN (test code = BUN) 30 mg/dL 7-18 H GLOMERULAR FILTRATION RATE (test code = GFR) 24 mL/min >=60 Estimated GFR by using Modified MDRD formula.Chronic kidney disease is defined as either kidney damageor GFR <60 mL/min/1.73 m2 for >3 months. CREATININE (test code = CREAT) 2.10 mg/dL 0.55-1.02 H Note change in reference range due to change in reagent. BUN/CREATININE RATIO (test code = BUN/CREA) 14.3 10-20 N CALCIUM (test code = CA) 9.7 mg/dL 8.5-10.1 N CBC W/O [id number] 06:17:00* Test Item Value Reference Range Interpretation Comments WHITE BLOOD CELL (test code = WBC) 14.0 K/mm3 4.5-12.5 H RED BLOOD CELL (test code = RBC) 3.42 mill/mm3 3.7-5.2 L HEMOGLOBIN (test code = HGB) 11.7 gram/dL 11.5-15.5 N HEMATOCRIT (test code = HCT) 35.1 % 36.0-46.0 L MEAN CELL VOLUME (test code = MCV) 102.6 fL 80-98 H MEAN CELL HGB (test code = MCH) 34.2 picogram 27.0-33.0 H MEAN CELL HGB CONCETRATION (test code = MCHC) 33.3 gram/dL 33.0-36. 0 N RED CELL DISTRIBUTION WIDTH (test code = RDW) 15.6 % 11.6-16. 2 N PLATELET COUNT (test code = PLT) 114 K/mm3 150-450 L MEAN PLATELET VOLUME (test code = MPV) 11.5 fL 6.7-11.0 H BASIC METABOLIC [id number] 06:14:00* Test Item Value Reference Range Interpretation Comments SODIUM (test code = NA) 137 mmol/L 136-145 N POTASSIUM (test code = K) 4.8 mmol/L 3.5-5.1 N CHLORIDE (test code = CL) 102.0 mmol/L 98-107 N CARBON DIOXIDE (test code = CO2) mmol/L 21-32 ANION GAP (test code = GAP) 10-20 GLUCOSE (test code = GLU) mg/dL 74-106 BLOOD UREA NITROGEN (test code = BUN) mg/dL 7-18 GLOMERULAR FILTRATION RATE (test code = GFR) mL/min >=60 CREATININE (test code = CREAT) mg/dL 0.55-1.02 BUN/CREATININE RATIO (test code = BUN/CREA) 10-20 CALCIUM (test code = CA) mg/dL 8.5-10.1 [id number] 22:24:00* Test Item Value Reference Range Interpretation Comments GLUBED (test code = GLUBED) 368 mg/dL 74-106 H Performed by certified bone process operator at [facility] [id number] 16:10:00* Test Item Value Reference Range Interpretation Comments GLUBED (test code = GLUBED) 368 mg/dL 74-106 H Performed by certified bone process operator at [facility] [id number] 11:50:00* Test Item Value Reference Range Interpretation Comments GLUBED (test code = GLUBED) 412 mg/dL 74-106 H Performed by certified bone process operator at [facility] [id number] 07:54:00* Test Item Value Reference Range Interpretation Comments GLUBED (test code = GLUBED) 322 mg/dL 74-106 H Performed by certified bone process operator at [facility] [id number] 20:18:00* Test Item Value Reference Range Interpretation Comments GLUBED (test code = GLUBED) 342 mg/dL 74-106 H Performed by certified bone process operator at [facility] [id number] 17:18:00* Test Item Value Reference Range Interpretation Comments GLUBED (test code = GLUBED) 398 mg/dL 74-106 H Performed by certified bone process operator at [facility] [id number] 12:12:00* Test Item Value Reference Range Interpretation Comments GLUBED (test code = GLUBED) 489 mg/dL 74-106 H Performed by certified bone process operator at [facility] [id number] 08:28:00* Test Item Value Reference Range Interpretation Comments GLUBED (test code = GLUBED) 409 mg/dL 74-106 H Performed by certified bone process operator at [facility] BASIC METABOLIC [id number] 04:44:00* Test Item Value Reference Range Interpretation Comments SODIUM (test code = NA) 137 mmol/L 136-145 N POTASSIUM (test code = K) 4.0 mmol/L 3.5-5.1 N CHLORIDE (test code = CL) 104.0 mmol/L 98-107 N CARBON DIOXIDE (test code = CO2) 29.0 mmol/L 21-32 N ANION GAP (test code = GAP) 8.0 10-20 L GLUCOSE (test code = GLU) 380 mg/dL 74-106 H BLOOD UREA NITROGEN (test code = BUN) 15 mg/dL 7-18 N GLOMERULAR FILTRATION RATE (test code = GFR) 45 mL/min >=60 Estimated GFR by using Modified MDRD formula.Chronic kidney disease is defined as either kidney damageor GFR <60 mL/min/1.73 m2 for >3 months. CREATININE (test code = CREAT) 1.20 mg/dL 0.55-1.02 H Note change in reference range due to change in reagent. BUN/CREATININE RATIO (test code = BUN/CREA) 12.4 10-20 N CALCIUM (test code = CA) 8.3 mg/dL 8.5-10.1 L BASIC METABOLIC [id number] 04:24:00* Test Item Value Reference Range Interpretation Comments SODIUM (test code = NA) 137 mmol/L 136-145 N POTASSIUM (test code = K) 4.0 mmol/L 3.5-5.1 N CHLORIDE (test code = CL) 104.0 mmol/L 98-107 N CARBON DIOXIDE (test code = CO2) mmol/L 21-32 ANION GAP (test code = GAP) 10-20 GLUCOSE (test code = GLU) mg/dL 74-106 BLOOD UREA NITROGEN (test code = BUN) mg/dL 7-18 GLOMERULAR FILTRATION RATE (test code = GFR) mL/min >=60 CREATININE (test code = CREAT) mg/dL 0.55-1.02 BUN/CREATININE RATIO (test code = BUN/CREA) 10-20 CALCIUM (test code = CA) mg/dL 8.5-10.1 CBC W/AUTO [id number] 04:20:00* Test Item Value Reference Range Interpretation Comments WHITE BLOOD CELL (test code = WBC) 10.9 K/mm3 4.5-12.5 N RED BLOOD CELL (test code = RBC) 3.32 mill/mm3 3.7-5.2 L HEMOGLOBIN (test code = HGB) 11.1 gram/dL 11.5-15.5 L RESULT VERIFIED BY REPEAT ANALYSIS HEMATOCRIT (test code = HCT) 34.5 % 36.0-46.0 L MEAN CELL VOLUME (test code = MCV) 103.9 fL 80-98 H MEAN CELL HGB (test code = MCH) 33.4 picogram 27.0-33.0 H MEAN CELL HGB CONCETRATION (test code = MCHC) 32.2 gram/dL 33.0-36. 0 L RED CELL DISTRIBUTION WIDTH (test code = RDW) 15.3 % 11.6-16. 2 N RED CELL DISTRIBUTION WIDTH SD (test code = RDW-SD) 58.8 fL 37 .0-51.0 H PLATELET COUNT (test code = PLT) 110 K/mm3 150-450 L MEAN PLATELET VOLUME (test code = MPV) 10.7 fL 6.7-11.0 N NEUTROPHIL % (test code = NT%) 89.8 % 39.0-69.0 H IMMATURE GRANULOCYTE % (test code = IG%) 0.6 % 0.0-5.0 N LYMPHOCYTE % (test code = LY%) 5.8 % 25.0-55.0 L MONOCYTE % (test code = MO%) 3.7 % 0.0-10.0 N EOSINOPHIL % (test code = EO%) 0.0 % 0.0-5.0 N BASOPHIL % (test code = BA%) 0.1 % 0.0-1.0 N NUCLEATED RBC % (test code = NRBC%) 0.0 % 0-0 N NEUTROPHIL # (test code = NT#) 9.79 K/mm3 1.8-7.7 H IMMATURE GRANULOCYTE # (test code = IG#) 0.06 x10 3/uL 0-0.03 H LYMPHOCYTE # (test code = LY#) 0.63 K/mm3 1.0-5.0 L MONOCYTE # (test code = MO#) 0.40 K/mm3 0-0.8 N EOSINOPHIL # (test code = EO#) 0.00 K/mm3 0.0-0.5 N BASOPHIL # (test code = BA#) 0.01 K/mm3 0.0-0.2 N NUCLEATED RBC # (test code = NRBC#) 0.00 K/mm3 0.0-0.1 N MANUAL DIFF REQUIRED (test code = MDIFF) NO PROTHROMBIN [id number] 04:09:00* Test Item Value Reference Range Interpretation Comments PROTHROMBIN TIME PATIENT (test code = PTP) 15.1 seconds 9.0-14.0 H INTERNATIONAL NORMAL RATIO (test code = INR) 1.3 0.8-1.2 H The therapeutic range for oral anticoagulant therapy formost indications is an international normalized ratio (INR)of between 2.0 and 3.0. The recommended therapeutic INRrange for various clinical situations is listed below: Clinical Situation INR range Pulmonary e mbolism treatment (2.0-3.0)Venous thrombosis treatmentVenous thrombosis prophylaxis (high risk surgery)Prevention of systemic embolism from: Acute myocardial infarction Valvular heart disease Atrial fibrillation Mechanical prosthetic heart valves (2.5-3.5) IS PATIENT ON ANTICOAGULANTS? [id number] 22:16:00* Test Item Value Reference Range Interpretation Comments GLUBED (test code = GLUBED) 338 mg/dL 74-106 H Performed by certified bone process operator at [facility] - XR SPINE 1 V SPEC [id number] 16:43:00 FAX: Kamaljit Pierce MD [place]: B St: ADM FAX: Yoandy Mar MD [phone] FAX: Daniel Meek DO FAX: Raj Nesbitt MD [phone] Name: GAURAV AGUERO [facility] : 1955 Age/S: 64/F [address] [facility] Unit #: [id number] Loc: V.5 [address] [place] [address] Phys: Raj Lopez MD Acct: [id number] Dis Date: Status: ADM IN PHONE #: [phone] Exam D ate: 02/23/2020 1628 FAX #: [phone] Reason: L AMINECTOMY EXAMS: CPT CODE: [id number] XR SPINE 1 V SPEC LEVEL [id number] Exam: Intraoperative spine level localization FINDINGS/ IMPRESSION: Single lateral intraoperative lumbar radiograph taken at 4:16 PM on 02/23/2020 with radiopaque marker marker overlying L4-L5. Single lateral intraoperative lumbar radiograph taken at 4:28 PM on 02/23/2020 with radiopaque marker overly ing L5-S1. a t 1642 Reported and signed by: Harinder Dozier M.D. CC: Kamaljit Pierce MD; Yoandy Dorman; Daniel Meek DO; Raj Lopez MD echnologist: RT BHANU(R) Trnscrd Date /Time/By: 02/23/2020 (1642) : By: [email or web address] Orig Print D/T: S: 020 (0892) PAGE 1 Signed Report - XR SPINE 1 V SPEC [id number] 16:43:00 FAX: Kamaljit Pierce MD [place]: B St: ADM FAX: Yoandy Mar MD [phone] FAX: Daniel Meek DO FAX: Raj Nesbitt MD [phone] Name: GAURAV AGUERO [facility] : 1955 Age/S: 64/F [address] [facility] Unit #: [id number] Loc: V.[address] [place] [address] Phys: Raj Lopez MD Acct: [id number] Dis Date: Status: ADM IN PHONE #: [phone] Exam D ate: 02/23/2020 1623 FAX #: [phone] Reason: L AMINECTOMY EXAMS: CPT CODE: [id number] XR SPINE 1 V SPEC LEVEL [id number] Exam: Intraoperative spine level localization FINDINGS/ IMPRESSION: Single lateral intraoperative lumbar radiograph taken at 4:16 PM on 02/23/2020 with radiopaque marker marker overlying L4-L5. Single lateral intraoperative lumbar radiograph taken at 4:28 PM on 02/23/2020 with radiopaque marker overly ing L5-S1. a t 1941 Reported and signed by: Harinder Dozier M.D. CC: Kamaljit Pierce MD; Yoandy Dorman; Daniel Meek DO; Raj Lopez MD echnologist: RT BHANU(R) Trnscrd Date /Time/By: 02/23/2020 (8665) : By: [email or web address] Orig Print D/T: S: 020 (3152) PAGE 1 Signed Report CBC W/O [id number] 15:19:00* Test Item Value Reference Range Interpretation Comments WHITE BLOOD CELL (test code = WBC) 6.5 K/mm3 4.5-12.5 N RED BLOOD CELL (test code = RBC) 3.97 mill/mm3 3.7-5.2 N HEMOGLOBIN (test code = HGB) 13.4 gram/dL 11.5-15.5 N HEMATOCRIT (test code = HCT) 41.0 % 36.0-46.0 N MEAN CELL VOLUME (test code = MCV) 103.3 fL 80-98 H MEAN CELL HGB (test code = MCH) 33.8 picogram 27.0-33.0 H MEAN CELL HGB CONCETRATION (test code = MCHC) 32.7 gram/dL 33.0-36. 0 L RED CELL DISTRIBUTION WIDTH (test code = RDW) 15.5 % 11.6-16. 2 N PLATELET COUNT (test code = PLT) 155 K/mm3 150-450 RESULT VERIFIED BY REPEAT ANALYSIS MEAN PLATELET VOLUME (test code = MPV) 10.7 fL 6.7-11.0 N [id number] 11:39:00* Test Item Value Reference Range Interpretation Comments GLUBED (test code = GLUBED) 314 mg/dL 74-106 H Performed by certified bone process operator at [facility] [id number] 08:50:00* Test Item Value Reference Range Interpretation Comments GLUBED (test code = GLUBED) 330 mg/dL 74-106 H Performed by certified bone process operator at [facility] [id number] 08:30:00* Test Item Value Reference Range Interpretation Comments GLUBED (test code = GLUBED) 361 mg/dL 74-106 H Performed by certified bone process operator at [facility] PROTHROMBIN [id number] 03:30:00* Test Item Value Reference Range Interpretation Comments PROTHROMBIN TIME PATIENT (test code = PTP) 14.4 seconds 9.0-14.0 H INTERNATIONAL NORMAL RATIO (test code = INR) 1.2 0.8-1.2 N The therapeutic range for oral anticoagulant therapy formost indications is an international normalized ratio (INR)of between 2.0 and 3.0. The recommended therapeutic INRrange for various clinical situations is listed below: Clinical Situation INR range Pulmonary e mbolism treatment (2.0-3.0)Venous thrombosis treatmentVenous thrombosis prophylaxis (high risk surgery)Prevention of systemic embolism from: Acute myocardial infarction Valvular heart disease Atrial fibrillation Mechanical prosthetic heart valves (2.5-3.5) IS PATIENT ON ANTICOAGULANTS? NCBC W/O [id number] 02:59:00* Test Item Value Reference Range Interpretation Comments WHITE BLOOD CELL (test code = WBC) 4.3 K/mm3 4.5-12.5 L RED BLOOD CELL (test code = RBC) 3.59 mill/mm3 3.7-5.2 L HEMOGLOBIN (test code = HGB) 12.0 gram/dL 11.5-15.5 N HEMATOCRIT (test code = HCT) 37.9 % 36.0-46.0 N MEAN CELL VOLUME (test code = MCV) 105.6 fL 80-98 H MEAN CELL HGB (test code = MCH) 33.4 picogram 27.0-33.0 H MEAN CELL HGB CONCETRATION (test code = MCHC) 31.7 gram/dL 33.0-36. 0 L RED CELL DISTRIBUTION WIDTH (test code = RDW) 15.8 % 11.6-16. 2 N PLATELET COUNT (test code = PLT) 80 K/mm3 150-450 L RESULT VERIFIED BY REPEAT ANALYSIS MEAN PLATELET VOLUME (test code = MPV) 11.1 fL 6.7-11.0 H PROTHROMBIN [id number] 21:26:00* Test Item Value Reference Range Interpretation Comments PROTHROMBIN TIME PATIENT (test code = PTP) 17.7 seconds 9.0-14.0 H INTERNATIONAL NORMAL RATIO (test code = INR) 1.5 0.8-1.2 H The therapeutic range for oral anticoagulant therapy formost indications is an international normalized ratio (INR)of between 2.0 and 3.0. The recommended therapeutic INRrange for various clinical situations is listed below: Clinical Situation INR range Pulmonary e mbolism treatment (2.0-3.0)Venous thrombosis treatmentVenous thrombosis prophylaxis (high risk surgery)Prevention of systemic embolism from: Acute myocardial infarction Valvular heart disease Atrial fibrillation Mechanical prosthetic heart valves (2.5-3.5) IS PATIENT ON ANTICOAGULANTS? NCBC W/O [id number] 21:04:00* Test Item Value Reference Range Interpretation Comments WHITE BLOOD CELL (test code = WBC) 4.4 K/mm3 4.5-12.5 L RED BLOOD CELL (test code = RBC) 3.42 mill/mm3 3.7-5.2 L HEMOGLOBIN (test code = HGB) 11.6 gram/dL 11.5-15.5 N HEMATOCRIT (test code = HCT) 36.1 % 36.0-46.0 N MEAN CELL VOLUME (test code = MCV) 105.6 fL 80-98 H MEAN CELL HGB (test code = MCH) 33.9 picogram 27.0-33.0 H MEAN CELL HGB CONCETRATION (test code = MCHC) 32.1 gram/dL 33.0-36. 0 L RED CELL DISTRIBUTION WIDTH (test code = RDW) 15.7 % 11.6-16. 2 N PLATELET COUNT (test code = PLT) 56 K/mm3 150-450 L MEAN PLATELET VOLUME (test code = MPV) 11.3 fL 6.7-11.0 H [id number] 20:37:00* Test Item Value Reference Range Interpretation Comments GLUBED (test code = GLUBED) 198 mg/dL 74-106 H Performed by certified bone process operator at [facility] VITAMIN [id number] 18:38:00* Test Item Value Reference Range Interpretation Comments VITAMIN B12 (test code = VITB12) 2888 pg/mL 193-986 H SPECIMEN COMMENTS: add onFOLIC [id number] 18:38:00* Test Item Value Reference Range Interpretation Comments FOLIC ACID (test code = FOL) 9.1 ng/mL 3.10-17.50 N SPECIMEN COMMENTS: add [id number] 16:59:00* Test Item Value Reference Range Interpretation Comments GLUBED (test code = GLUBED) 261 mg/dL 74-106 H Performed by certified bone process operator at [facility] [id number] 12:36:00* Test Item Value Reference Range Interpretation Comments GLUBED (test code = GLUBED) 160 mg/dL 74-106 H Performed by certified bone process operator at [facility] [id number] 11:58:00* Test Item Value Reference Range Interpretation Comments GLUBED (test code = GLUBED) 187 mg/dL 74-106 H Performed by certified bone process operator at [facility] CBC W/O [id number] 11:05:00* Test Item Value Reference Range Interpretation Comments WHITE BLOOD CELL (test code = WBC) 5.8 K/mm3 4.5-12.5 N RED BLOOD CELL (test code = RBC) 3.91 mill/mm3 3.7-5.2 N HEMOGLOBIN (test code = HGB) 13.1 gram/dL 11.5-15.5 N HEMATOCRIT (test code = HCT) 40.0 % 36.0-46.0 N MEAN CELL VOLUME (test code = MCV) 102.3 fL 80-98 H MEAN CELL HGB (test code = MCH) 33.5 picogram 27.0-33.0 H MEAN CELL HGB CONCETRATION (test code = MCHC) 32.8 gram/dL 33.0-36. 0 L RED CELL DISTRIBUTION WIDTH (test code = RDW) 15.7 % 11.6-16. 2 N PLATELET COUNT (test code = PLT) 70 K/mm3 150-450 L MEAN PLATELET VOLUME (test code = MPV) 11.4 fL 6.7-11.0 H PROTHROMBIN [id number] 10:19:00* Test Item Value Reference Range Interpretation Comments PROTHROMBIN TIME PATIENT (test code = PTP) 20.6 seconds 9.0-14.0 H INTERNATIONAL NORMAL RATIO (test code = INR) 1.8 0.8-1.2 H The therapeutic range for oral anticoagulant therapy formost indications is an international normalized ratio (INR)of between 2.0 and 3.0. The recommended therapeutic INRrange for various clinical situations is listed below: Clinical Situation INR range Pulmonary e mbolism treatment (2.0-3.0)Venous thrombosis treatmentVenous thrombosis prophylaxis (high risk surgery)Prevention of systemic embolism from: Acute myocardial infarction Valvular heart disease Atrial fibrillation Mechanical prosthetic heart valves (2.5-3.5) IS PATIENT ON ANTICOAGULANTS? [id number] 09:42:00* Test Item Value Reference Range Interpretation Comments GLUBED (test code = GLUBED) 172 mg/dL 74-106 H Performed by certified bone process operator at [facility] CBC W/AUTO [id number] 05:44:00* Test Item Value Reference Range Interpretation Comments WHITE BLOOD CELL (test code = WBC) 6.4 K/mm3 4.5-12.5 N RED BLOOD CELL (test code = RBC) 3.87 mill/mm3 3.7-5.2 N HEMOGLOBIN (test code = HGB) 12.7 gram/dL 11.5-15.5 N HEMATOCRIT (test code = HCT) 39.2 % 36.0-46.0 N MEAN CELL VOLUME (test code = MCV) 101.3 fL 80-98 H MEAN CELL HGB (test code = MCH) 32.8 picogram 27.0-33.0 N MEAN CELL HGB CONCETRATION (test code = MCHC) 32.4 gram/dL 33.0-36. 0 L RED CELL DISTRIBUTION WIDTH (test code = RDW) 15.4 % 11.6-16. 2 N RED CELL DISTRIBUTION WIDTH SD (test code = RDW-SD) 56.9 fL 37 .0-51.0 H PLATELET COUNT (test code = PLT) 65 K/mm3 150-450 L MEAN PLATELET VOLUME (test code = MPV) 11.6 fL 6.7-11.0 H NEUTROPHIL % (test code = NT%) 55.6 % 39.0-69.0 N IMMATURE GRANULOCYTE % (test code = IG%) 0.3 % 0.0-5.0 N LYMPHOCYTE % (test code = LY%) 26.6 % 25.0-55.0 N MONOCYTE % (test code = MO%) 11.8 % 0.0-10.0 H EOSINOPHIL % (test code = EO%) 5.5 % 0.0-5.0 H BASOPHIL % (test code = BA%) 0.2 % 0.0-1.0 N NUCLEATED RBC % (test code = NRBC%) 0.0 % 0-0 N NEUTROPHIL # (test code = NT#) 3.57 K/mm3 1.8-7.7 N IMMATURE GRANULOCYTE # (test code = IG#) 0.02 x10 3/uL 0-0.03 N LYMPHOCYTE # (test code = LY#) 1.71 K/mm3 1.0-5.0 N MONOCYTE # (test code = MO#) 0.76 K/mm3 0-0.8 N EOSINOPHIL # (test code = EO#) 0.35 K/mm3 0.0-0.5 N BASOPHIL # (test code = BA#) 0.01 K/mm3 0.0-0.2 N NUCLEATED RBC # (test code = NRBC#) 0.00 K/mm3 0.0-0.1 N MANUAL DIFF REQUIRED (test code = MDIFF) NO, ONLY SCAN NEEDED DIFFERENTIAL [id number] 05:44:00* Test Item Value Reference Range Interpretation Comments STAIN ACCEPTABILITY (test code = STN ACCEPTABLE) STAIN ACCEPTABLE ANISOCYTOSIS (test code = ANISO) 2+ MACROCYTOSIS (test code = MACR) 2+ MORPHOLOGY COMMENT (test code = MOC) TEST NOT PERFORMED PLATELET ESTIMATE (test code = PLTEST) DECREASED PLATELET MORPHOLOGY (test code = PLTMORPH) NORMAL BASIC METABOLIC [id number] 05:15:00* Test Item Value Reference Range Interpretation Comments SODIUM (test code = NA) 138 mmol/L 136-145 N POTASSIUM (test code = K) 3.4 mmol/L 3.5-5.1 L CHLORIDE (test code = CL) 105.0 mmol/L 98-107 N CARBON DIOXIDE (test code = CO2) 31.0 mmol/L 21-32 N ANION GAP (test code = GAP) 5.4 10-20 L GLUCOSE (test code = GLU) 227 mg/dL 74-106 H BLOOD UREA NITROGEN (test code = BUN) 9 mg/dL 7-18 N GLOMERULAR FILTRATION RATE (test code = GFR) 50 mL/min >=60 Estimated GFR by using Modified MDRD formula.Chronic kidney disease is defined as either kidney damageor GFR <60 mL/min/1.73 m2 for >3 months. CREATININE (test code = CREAT) 1.10 mg/dL 0.55-1.02 H Note change in reference range due to change in reagent. BUN/CREATININE RATIO (test code = BUN/CREA) 8.3 10-20 L CALCIUM (test code = CA) 8.4 mg/dL 8.5-10.1 L LIPID PROFILE (CORONARY RISK)2020-02-22 05:15:00* Test Item Value Reference Range Interpretation Comments TRIGLYCERIDES (test code = TRIG) 117 mg/dL 20-150 N CHOLESTEROL (test code = CHOL) 97 mg/dL 0-200 N CHOLESTEROL/HDL RATIO (test code = CHOLHDL) 4.0 RATIO 0-4.9 N RISK ASSOCIATED WITH CHOL/HDL RATIOS: Risk Male Female1/2 AVERAGE 3.43 3.27AVERAGE 4.97 4.442X AVERAGE 9.55 7.053X AVERAGE 23.39 11.04 REFERENCE VALUE IS RELATED TO RISK LEVELS ASRECOMMENDED BY THE [facility]. HEART, LUNG, AND BLOOD INST. HDL CHOLESTEROL (test code = HDL) 20 mg/dL 40-60 L LIPOPROTEIN LDL (test code = LDL) 59 mg/dL 100-129 L Reference Interval: mg/dL mmol/L Optimal <100 <2.6Near/above optimal 100-129 2.6- 3.3Borderline High 130-159 3.4-4.1High 160-189 4.1-4.9Very High >=190 >=4.9========= This LDL result is a direct measurement.========= CBC W/AUTO [id number] 04:53:00* Test Item Value Reference Range Interpretation Comments WHITE BLOOD CELL (test code = WBC) 6.4 K/mm3 4.5-12.5 N RED BLOOD CELL (test code = RBC) 3.87 mill/mm3 3.7-5.2 N HEMOGLOBIN (test code = HGB) 12.7 gram/dL 11.5-15.5 N HEMATOCRIT (test code = HCT) 39.2 % 36.0-46.0 N MEAN CELL VOLUME (test code = MCV) 101.3 fL 80-98 H MEAN CELL HGB (test code = MCH) 32.8 picogram 27.0-33.0 N MEAN CELL HGB CONCETRATION (test code = MCHC) 32.4 gram/dL 33.0-36. 0 L RED CELL DISTRIBUTION WIDTH (test code = RDW) 15.4 % 11.6-16. 2 N RED CELL DISTRIBUTION WIDTH SD (test code = RDW-SD) 56.9 fL 37 .0-51.0 H PLATELET COUNT (test code = PLT) 65 K/mm3 150-450 L MEAN PLATELET VOLUME (test code = MPV) 11.6 fL 6.7-11.0 H NEUTROPHIL % (test code = NT%) 55.6 % 39.0-69.0 N IMMATURE GRANULOCYTE % (test code = IG%) 0.3 % 0.0-5.0 N LYMPHOCYTE % (test code = LY%) 26.6 % 25.0-55.0 N MONOCYTE % (test code = MO%) 11.8 % 0.0-10.0 H EOSINOPHIL % (test code = EO%) 5.5 % 0.0-5.0 H BASOPHIL % (test code = BA%) 0.2 % 0.0-1.0 N NUCLEATED RBC % (test code = NRBC%) 0.0 % 0-0 N NEUTROPHIL # (test code = NT#) 3.57 K/mm3 1.8-7.7 N IMMATURE GRANULOCYTE # (test code = IG#) 0.02 x10 3/uL 0-0.03 N LYMPHOCYTE # (test code = LY#) 1.71 K/mm3 1.0-5.0 N MONOCYTE # (test code = MO#) 0.76 K/mm3 0-0.8 N EOSINOPHIL # (test code = EO#) 0.35 K/mm3 0.0-0.5 N BASOPHIL # (test code = BA#) 0.01 K/mm3 0.0-0.2 N NUCLEATED RBC # (test code = NRBC#) 0.00 K/mm3 0.0-0.1 N MANUAL DIFF REQUIRED (test code = MDIFF) NO, ONLY SCAN NEEDED DIFFERENTIAL [id number] 04:53:00* Test Item Value Reference Range Interpretation Comments STAIN ACCEPTABILITY (test code = STN ACCEPTABLE) CABOT RINGS (test code = CAB) MORPHOLOGY COMMENT (test code = MOC) PLATELET ESTIMATE (test code = PLTEST) PLATELET MORPHOLOGY (test code = PLTMORPH) CBC W/AUTO [id number] 04:53:00* Test Item Value Reference Range Interpretation Comments WHITE BLOOD CELL (test code = WBC) 6.4 K/mm3 4.5-12.5 N RED BLOOD CELL (test code = RBC) 3.87 mill/mm3 3.7-5.2 N HEMOGLOBIN (test code = HGB) 12.7 gram/dL 11.5-15.5 N HEMATOCRIT (test code = HCT) 39.2 % 36.0-46.0 N MEAN CELL VOLUME (test code = MCV) 101.3 fL 80-98 H MEAN CELL HGB (test code = MCH) 32.8 picogram 27.0-33.0 N MEAN CELL HGB CONCETRATION (test code = MCHC) 32.4 gram/dL 33.0-36. 0 L RED CELL DISTRIBUTION WIDTH (test code = RDW) 15.4 % 11.6-16. 2 N RED CELL DISTRIBUTION WIDTH SD (test code = RDW-SD) 56.9 fL 37 .0-51.0 H PLATELET COUNT (test code = PLT) 65 K/mm3 150-450 L MEAN PLATELET VOLUME (test code = MPV) 11.6 fL 6.7-11.0 H NEUTROPHIL % (test code = NT%) 55.6 % 39.0-69.0 N IMMATURE GRANULOCYTE % (test code = IG%) 0.3 % 0.0-5.0 N LYMPHOCYTE % (test code = LY%) 26.6 % 25.0-55.0 N MONOCYTE % (test code = MO%) 11.8 % 0.0-10.0 H EOSINOPHIL % (test code = EO%) 5.5 % 0.0-5.0 H BASOPHIL % (test code = BA%) 0.2 % 0.0-1.0 N NUCLEATED RBC % (test code = NRBC%) 0.0 % 0-0 N NEUTROPHIL # (test code = NT#) 3.57 K/mm3 1.8-7.7 N IMMATURE GRANULOCYTE # (test code = IG#) 0.02 x10 3/uL 0-0.03 N LYMPHOCYTE # (test code = LY#) 1.71 K/mm3 1.0-5.0 N MONOCYTE # (test code = MO#) 0.76 K/mm3 0-0.8 N EOSINOPHIL # (test code = EO#) 0.35 K/mm3 0.0-0.5 N BASOPHIL # (test code = BA#) 0.01 K/mm3 0.0-0.2 N NUCLEATED RBC # (test code = NRBC#) 0.00 K/mm3 0.0-0.1 N MANUAL DIFF REQUIRED (test code = MDIFF) NO, ONLY SCAN NEEDED DIFFERENTIAL [id number] 04:53:00* Test Item Value Reference Range Interpretation Comments STAIN ACCEPTABILITY (test code = STN ACCEPTABLE) CABOT RINGS (test code = CAB) MORPHOLOGY COMMENT (test code = MOC) PLATELET ESTIMATE (test code = PLTEST) PLATELET MORPHOLOGY (test code = PLTMORPH) CBC W/AUTO [id number] 04:53:00* Test Item Value Reference Range Interpretation Comments WHITE BLOOD CELL (test code = WBC) 6.4 K/mm3 4.5-12.5 N RED BLOOD CELL (test code = RBC) 3.87 mill/mm3 3.7-5.2 N HEMOGLOBIN (test code = HGB) 12.7 gram/dL 11.5-15.5 N HEMATOCRIT (test code = HCT) 39.2 % 36.0-46.0 N MEAN CELL VOLUME (test code = MCV) 101.3 fL 80-98 H MEAN CELL HGB (test code = MCH) 32.8 picogram 27.0-33.0 N MEAN CELL HGB CONCETRATION (test code = MCHC) 32.4 gram/dL 33.0-36. 0 L RED CELL DISTRIBUTION WIDTH (test code = RDW) 15.4 % 11.6-16. 2 N RED CELL DISTRIBUTION WIDTH SD (test code = RDW-SD) 56.9 fL 37 .0-51.0 H PLATELET COUNT (test code = PLT) 65 K/mm3 150-450 L MEAN PLATELET VOLUME (test code = MPV) 11.6 fL 6.7-11.0 H NEUTROPHIL % (test code = NT%) 55.6 % 39.0-69.0 N IMMATURE GRANULOCYTE % (test code = IG%) 0.3 % 0.0-5.0 N LYMPHOCYTE % (test code = LY%) 26.6 % 25.0-55.0 N MONOCYTE % (test code = MO%) 11.8 % 0.0-10.0 H EOSINOPHIL % (test code = EO%) 5.5 % 0.0-5.0 H BASOPHIL % (test code = BA%) 0.2 % 0.0-1.0 N NUCLEATED RBC % (test code = NRBC%) 0.0 % 0-0 N NEUTROPHIL # (test code = NT#) 3.57 K/mm3 1.8-7.7 N IMMATURE GRANULOCYTE # (test code = IG#) 0.02 x10 3/uL 0-0.03 N LYMPHOCYTE # (test code = LY#) 1.71 K/mm3 1.0-5.0 N MONOCYTE # (test code = MO#) 0.76 K/mm3 0-0.8 N EOSINOPHIL # (test code = EO#) 0.35 K/mm3 0.0-0.5 N BASOPHIL # (test code = BA#) 0.01 K/mm3 0.0-0.2 N NUCLEATED RBC # (test code = NRBC#) 0.00 K/mm3 0.0-0.1 N MANUAL DIFF REQUIRED (test code = MDIFF) NO, ONLY SCAN NEEDED DIFFERENTIAL [id number] 04:53:00* Test Item Value Reference Range Interpretation Comments STAIN ACCEPTABILITY (test code = STN ACCEPTABLE) MORPHOLOGY COMMENT (test code = MOC) PLATELET ESTIMATE (test code = PLTEST) PLATELET MORPHOLOGY (test code = PLTMORPH) CBC W/AUTO [id number] 04:53:00* Test Item Value Reference Range Interpretation Comments WHITE BLOOD CELL (test code = WBC) 6.4 K/mm3 4.5-12.5 N RED BLOOD CELL (test code = RBC) 3.87 mill/mm3 3.7-5.2 N HEMOGLOBIN (test code = HGB) 12.7 gram/dL 11.5-15.5 N HEMATOCRIT (test code = HCT) 39.2 % 36.0-46.0 N MEAN CELL VOLUME (test code = MCV) 101.3 fL 80-98 H MEAN CELL HGB (test code = MCH) 32.8 picogram 27.0-33.0 N MEAN CELL HGB CONCETRATION (test code = MCHC) 32.4 gram/dL 33.0-36. 0 L RED CELL DISTRIBUTION WIDTH (test code = RDW) 15.4 % 11.6-16. 2 N RED CELL DISTRIBUTION WIDTH SD (test code = RDW-SD) 56.9 fL 37 .0-51.0 H PLATELET COUNT (test code = PLT) 65 K/mm3 150-450 L MEAN PLATELET VOLUME (test code = MPV) 11.6 fL 6.7-11.0 H NEUTROPHIL % (test code = NT%) 55.6 % 39.0-69.0 N IMMATURE GRANULOCYTE % (test code = IG%) 0.3 % 0.0-5.0 N LYMPHOCYTE % (test code = LY%) 26.6 % 25.0-55.0 N MONOCYTE % (test code = MO%) 11.8 % 0.0-10.0 H EOSINOPHIL % (test code = EO%) 5.5 % 0.0-5.0 H BASOPHIL % (test code = BA%) 0.2 % 0.0-1.0 N NUCLEATED RBC % (test code = NRBC%) 0.0 % 0-0 N NEUTROPHIL # (test code = NT#) 3.57 K/mm3 1.8-7.7 N IMMATURE GRANULOCYTE # (test code = IG#) 0.02 x10 3/uL 0-0.03 N LYMPHOCYTE # (test code = LY#) 1.71 K/mm3 1.0-5.0 N MONOCYTE # (test code = MO#) 0.76 K/mm3 0-0.8 N EOSINOPHIL # (test code = EO#) 0.35 K/mm3 0.0-0.5 N BASOPHIL # (test code = BA#) 0.01 K/mm3 0.0-0.2 N NUCLEATED RBC # (test code = NRBC#) 0.00 K/mm3 0.0-0.1 N MANUAL DIFF REQUIRED (test code = MDIFF) NO, ONLY SCAN NEEDED DIFFERENTIAL [id number] 04:53:00* Test Item Value Reference Range Interpretation Comments STAIN ACCEPTABILITY (test code = STN ACCEPTABLE) CABOT RINGS (test code = CAB) MORPHOLOGY COMMENT (test code = MOC) PLATELET ESTIMATE (test code = PLTEST) PLATELET MORPHOLOGY (test code = PLTMORPH) [id number] 00:24:00* Test Item Value Reference Range Interpretation Comments GLYCOSYLATED HEMOGLOBIN (HA1C) (test code = GLYHGB) 8.1 % HbA1 SUGGESTED DIAGNOSIS: HbA1C (%) Diabetic >6.4Prediabetes 5.7 - 6.4Normal <5.7 ESTIMATED AVERAGE GLUCOSE (test code = EAG) 186 MG/DL HEPATIC FUNCTION [id number] 23:04:00* Test Item Value Reference Range Interpretation Comments TOTAL PROTEIN (test code = PROT) 5.6 gram/dL 6.4-8.2 L ALBUMIN (test code = ALB) 1.9 g/dL 3.4-5.0 L GLOBULIN (test code = GLOB) 3.7 gram/dL 2.7-4.2 N ALBUMIN/GLOBULIN RATIO (test code = A/G) 0.5 0.75-1.50 L BILIRUBIN TOTAL (test code = BILT) 3.20 mg/dL 0.0-1.0 H BILIRUBIN DIRECT (test code = BILD) 1.45 mg/dL 0.0-0.20 H SGOT/AST (test code = AST) 27 IUnit/L 15-37 N SGPT/ALT (test code = ALT) 31 IUnit/L 12-78 N ALKALINE PHOSPHATASE TOTAL (test code = ALKP) 311 IUnit/L 45-117 H Note change in reference range due to change in reagent. PROTHROMBIN [id number] 22:40:00* Test Item Value Reference Range Interpretation Comments PROTHROMBIN TIME PATIENT (test code = PTP) 21.8 seconds 9.0-14.0 H INTERNATIONAL NORMAL RATIO (test code = INR) 1.9 0.8-1.2 H The therapeutic range for oral anticoagulant therapy formost indications is an international normalized ratio (INR)of between 2.0 and 3.0. The recommended therapeutic INRrange for various clinical situations is listed below: Clinical Situation INR range Pulmonary e mbolism treatment (2.0-3.0)Venous thrombosis treatmentVenous thrombosis prophylaxis (high risk surgery)Prevention of systemic embolism from: Acute myocardial infarction Valvular heart disease Atrial fibrillation Mechanical prosthetic heart valves (2.5-3.5) IS PATIENT ON ANTICOAGULANTS? NTHROMBOPLASTIN TIME [id number] 22:40:00* Test Item Value Reference Range Interpretation Comments THROMBOPLASTIN TIME PARTIAL (test code = PTT) 36.0 seconds 23.0-37. 0 N IS PATIENT ON ANTICOAGULANTS? [id number] 20:30:00* Test Item Value Reference Range Interpretation Comments GLUBED (test code = GLUBED) 300 mg/dL 74-106 H Performed by certified bone process operator at [facility] COVID 19 Asymptomatic IH [id number] 17:42:00* Test Item Value Reference Range Interpretation Comments COVID 19 Asymptomatic IH AG (test code = COVNONPUIAG) NEGATIVE - MRI L-SPINE W WO [id number] 15:53:00 FAX: Kamaljit Pierce MD [place]: St: REG Name: DEBORAH ROLAND [facility] : [birth year] Age/S: 64/F [address] [facility] [facility] Unit #: [id number] Loc: [place] [address] Phys: Kamaljit Pierce MD Acct: [id number] Dis Date: Status: REG ER PHONE #: [phone] Exam Date: 02/21/2020 1429 FAX #: [phone] Reason: lumbar pain radiating down R leg, urinary incon EXAMS: CPT CODE: [id number] MRI L-SPINE W WO CON [id number] REASON FOR EXAM: lumbar pain radia ting down R leg, urinary incontinence Exam Order Date: 2019 12:01 PM Ordering: Kamaljit Pierce MD Attending:Kamaljit Pierce MD Location:[facility] Comparison: Lumbar MRI 08/15 Procedure: - MRI L-SPINE W WO CON FINDINGS: S agittal and axial images of the lumbar spine were obtained in in T1, T2, a nd proton density with fat saturation. No IV gadolinium was given. The sagittal images show within normal alignment of the lumbar spine. Mildly degenerated disc disease of L3-L4, L4-L5, and L5-S1 with mild to moderate disc bulge, ligamentum flavum hypertrophy, and the bilateral fa cet arthrosis.. At L4-L5 right facet there is a small synovial cyst that e xtends into the subarticular recess which measures approximately 9.6 mm an d results and moderate to severe mass effect and stenosis of the thecal sa c and exiting nerve root. No evidence of diskitis or osteomyelitis. The axial images show no evidence of cord compression. The cord is unremarkable without evidence of intramedullary mass. 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 at 1553 Reported and signed by: Serjio Dozier M.D. PAGE 1 Signed Report (CONTINUED) FAX: Kamaljit Pierce MD [place]: St: REG -------- Name: DEBORAH AGUERO [facility] : 1955 Age/S: 64/F [address] [facility] Unit #: [id number] Loc: [place] [address] Phys: Kamaljit Rios MD Acct: [id number] Dis Date: Status: REG ER ADAN NE #: [phone] Exam Date: 02/21/2020 1429 FAX #: [phone] Reason: lumbar pain radiating down R leg, urinary incon E XAMS: CPT CODE: [id number] MRI L-SPINE W WO CON [id number] <Continued> CC: Kamaljit Pierce MD Technologist: OLEGARIO METZRT - MRI Trnderd Date/Time/By: 02/21/2020 (5783) : By: [email or web address] Orig Print D/T: S: 02/21/2020 (1278) PAGE 2 Signed Report [id number] 15:10:00* Test Item Value Reference Range Interpretation Comments GLUBED (test code = GLUBED) 312 mg/dL 74-106 H Performed by certified bone process operator at [facility] CBC W/AUTO [id number] 13:25:00* Test Item Value Reference Range Interpretation Comments WHITE BLOOD CELL (test code = WBC) 5.9 K/mm3 4.5-12.5 N RED BLOOD CELL (test code = RBC) 3.89 mill/mm3 3.7-5.2 N HEMOGLOBIN (test code = HGB) 12.9 gram/dL 11.5-15.5 N HEMATOCRIT (test code = HCT) 39.2 % 36.0-46.0 N MEAN CELL VOLUME (test code = MCV) 100.8 fL 80-98 H MEAN CELL HGB (test code = MCH) 33.2 picogram 27.0-33.0 H MEAN CELL HGB CONCETRATION (test code = MCHC) 32.9 gram/dL 33.0-36. 0 L RED CELL DISTRIBUTION WIDTH (test code = RDW) 15.3 % 11.6-16. 2 N RED CELL DISTRIBUTION WIDTH SD (test code = RDW-SD) 57.4 fL 37 .0-51.0 H PLATELET COUNT (test code = PLT) 71 K/mm3 150-450 L MEAN PLATELET VOLUME (test code = MPV) 11.4 fL 6.7-11.0 H NEUTROPHIL % (test code = NT%) 58.6 % 39.0-69.0 N LYMPHOCYTE % (test code = LY%) 21.9 % 25.0-55.0 L MONOCYTE % (test code = MO%) 14.1 % 0.0-10.0 H EOSINOPHIL % (test code = EO%) 4.9 % 0.0-5.0 N BASOPHIL % (test code = BA%) 0.2 % 0.0-1.0 N NEUTROPHIL # (test code = NT#) 3.44 K/mm3 1.8-7.7 N LYMPHOCYTE # (test code = LY#) 1.29 K/mm3 1.0-5.0 N MONOCYTE # (test code = MO#) 0.83 K/mm3 0-0.8 H EOSINOPHIL # (test code = EO#) 0.29 K/mm3 0.0-0.5 N BASOPHIL # (test code = BA#) 0.01 K/mm3 0.0-0.2 N MANUAL DIFF REQUIRED (test code = MDIFF) NO, ONLY SCAN NEEDED Previously reported result: NO Edited by: TIMOTHY on 02/21/20:1252 DIFFERENTIAL [id number] 13:25:00* Test Item Value Reference Range Interpretation Comments STAIN ACCEPTABILITY (test code = STN ACCEPTABLE) STAIN ACCEPTABLE ANISOCYTOSIS (test code = ANISO) 1+ MACROCYTOSIS (test code = MACR) 1+ PLATELET ESTIMATE (test code = PLTEST) DECREASED PLATELET MORPHOLOGY (test code = PLTMORPH) NORMAL URINALYSIS [id number] 13:00:00* Test Item Value Reference Range Interpretation Comments UA COLOR (test code = COLU) YELLOW YELLOW UA APPEARANCE (test code = APPU) HAZY CLEAR A UA GLUCOSE DIPSTICK (test code = DGLUU) 250 (2+) mg/dL NEGATIVE A UA BILIRUBIN DIPSTICK (test code = BILU) NEGATIVE mg/dL NEGATIVE UA KETONE DIPSTICK (test code = KETU) neg mg/dL NEGATIVE UA SPECIFIC GRAVITY (test code = SGU) 1.015 1.001-1.035 UA BLOOD DIPSTICK (test code = JAYLENE) 10 (Trace) Aureliano/uL NEGATIVE A UA PH DIPSTICK (test code = SAHRA) 7.0 5.0-8.0 UA PROTEIN DIPSTICK (test code = PROU) neg mg/dL Neg-15 UA UROBILINIOGEN DIPSTICK (test code = URO) norm mg/dL 0.0-0.2 UA NITRITE DIPSTICK (test code = RENETTA) NEGATIVE NEGATIVE UA LEUKOCYTE ESTERASE DIPSTICK (test code = LEUU) 500 Tiffanie/uL (3+) u L NEGATIVE A UA WBC (test code = WBCU) 10-20 per HPF 0-5 A UA RBC (test code = RBCU) 0-2 per HPF 0-5 UA EPITHELIAL CELLS (test code = EPIU) MANY per HPF Few UA BACTERIA (test code = BACU) FEW per HPF NONE UA YEAST (test code = YEASTU) FEW per HPF NONE Urine Source? Clean CatchURINALYSIS [id number] 12:59:00* Test Item Value Reference Range Interpretation Comments UA COLOR (test code = COLU) YELLOW YELLOW UA APPEARANCE (test code = APPU) HAZY CLEAR A UA GLUCOSE DIPSTICK (test code = DGLUU) 250 (2+) mg/dL NEGATIVE A UA BILIRUBIN DIPSTICK (test code = BILU) NEGATIVE mg/dL NEGATIVE UA KETONE DIPSTICK (test code = KETU) neg mg/dL NEGATIVE UA SPECIFIC GRAVITY (test code = SGU) 1.015 1.001-1.035 UA BLOOD DIPSTICK (test code = JAYLENE) 10 (Trace) Aureliano/uL NEGATIVE A UA PH DIPSTICK (test code = SAHRA) 7.0 5.0-8.0 UA PROTEIN DIPSTICK (test code = PROU) neg mg/dL Neg-15 UA UROBILINIOGEN DIPSTICK (test code = URO) norm mg/dL 0.0-0.2 UA NITRITE DIPSTICK (test code = RENETTA) NEGATIVE NEGATIVE UA LEUKOCYTE ESTERASE DIPSTICK (test code = LEUU) 500 Tiffanie/uL (3+) u L NEGATIVE A UA WBC (test code = WBCU) per HPF 0-5 UA RBC (test code = RBCU) per HPF 0-5 UA EPITHELIAL CELLS (test code = EPIU) per HPF Few UA BACTERIA (test code = BACU) per HPF NONE Urine Source? Clean CatchBASIC METABOLIC [id number] 12:54:00* Test Item Value Reference Range Interpretation Comments SODIUM (test code = NA) 135 mmol/L 136-145 L POTASSIUM (test code = K) 3.4 mmol/L 3.5-5.1 L CHLORIDE (test code = CL) 101 mmol/L 101-109 N CARBON DIOXIDE (test code = CO2) 27.1 mmol/L 21-32 N ANION GAP (test code = GAP) 10 mmol/L 10-20 N GLUCOSE (test code = GLU) 383 mg/dL 74-106 H BLOOD UREA NITROGEN (test code = BUN) 8 mg/dL 3-21 N GLOMERULAR FILTRATION RATE (test code = GFR) 45 mL/min >=60 Estimated GFR by using Modified MDRD formula.Chronic kidney disease is defined as either kidney damageor GFR <60 mL/min/1.73 m2 for >3 months. CREATININE (test code = CREAT) 1.20 mg/dL 0.55-1.3 N BUN/CREATININE RATIO (test code = BUN/CREA) 6.7 10-20 L CALCIUM (test code = CA) 8.5 mg/dL 8.4-10.2 N CBC W/AUTO [id number] 12:52:00* Test Item Value Reference Range Interpretation Comments WHITE BLOOD CELL (test code = WBC) 5.9 K/mm3 4.5-12.5 N RED BLOOD CELL (test code = RBC) 3.89 mill/mm3 3.7-5.2 N HEMOGLOBIN (test code = HGB) 12.9 gram/dL 11.5-15.5 N HEMATOCRIT (test code = HCT) 39.2 % 36.0-46.0 N MEAN CELL VOLUME (test code = MCV) 100.8 fL 80-98 H MEAN CELL HGB (test code = MCH) 33.2 picogram 27.0-33.0 H MEAN CELL HGB CONCETRATION (test code = MCHC) 32.9 gram/dL 33.0-36. 0 L RED CELL DISTRIBUTION WIDTH (test code = RDW) 15.3 % 11.6-16. 2 N RED CELL DISTRIBUTION WIDTH SD (test code = RDW-SD) 57.4 fL 37 .0-51.0 H PLATELET COUNT (test code = PLT) 71 K/mm3 150-450 L MEAN PLATELET VOLUME (test code = MPV) 11.4 fL 6.7-11.0 H NEUTROPHIL % (test code = NT%) 58.6 % 39.0-69.0 N LYMPHOCYTE % (test code = LY%) 21.9 % 25.0-55.0 L MONOCYTE % (test code = MO%) 14.1 % 0.0-10.0 H EOSINOPHIL % (test code = EO%) 4.9 % 0.0-5.0 N BASOPHIL % (test code = BA%) 0.2 % 0.0-1.0 N NEUTROPHIL # (test code = NT#) 3.44 K/mm3 1.8-7.7 N LYMPHOCYTE # (test code = LY#) 1.29 K/mm3 1.0-5.0 N MONOCYTE # (test code = MO#) 0.83 K/mm3 0-0.8 H EOSINOPHIL # (test code = EO#) 0.29 K/mm3 0.0-0.5 N BASOPHIL # (test code = BA#) 0.01 K/mm3 0.0-0.2 N MANUAL DIFF REQUIRED (test code = MDIFF) NO CBC W/AUTO [id number] 12:52:00* Test Item Value Reference Range Interpretation Comments WHITE BLOOD CELL (test code = WBC) 5.9 K/mm3 4.5-12.5 N RED BLOOD CELL (test code = RBC) 3.89 mill/mm3 3.7-5.2 N HEMOGLOBIN (test code = HGB) 12.9 gram/dL 11.5-15.5 N HEMATOCRIT (test code = HCT) 39.2 % 36.0-46.0 N MEAN CELL VOLUME (test code = MCV) 100.8 fL 80-98 H MEAN CELL HGB (test code = MCH) 33.2 picogram 27.0-33.0 H MEAN CELL HGB CONCETRATION (test code = MCHC) 32.9 gram/dL 33.0-36. 0 L RED CELL DISTRIBUTION WIDTH (test code = RDW) 15.3 % 11.6-16. 2 N RED CELL DISTRIBUTION WIDTH SD (test code = RDW-SD) 57.4 fL 37 .0-51.0 H PLATELET COUNT (test code = PLT) 71 K/mm3 150-450 L MEAN PLATELET VOLUME (test code = MPV) 11.4 fL 6.7-11.0 H NEUTROPHIL % (test code = NT%) 58.6 % 39.0-69.0 N LYMPHOCYTE % (test code = LY%) 21.9 % 25.0-55.0 L MONOCYTE % (test code = MO%) 14.1 % 0.0-10.0 H EOSINOPHIL % (test code = EO%) 4.9 % 0.0-5.0 N BASOPHIL % (test code = BA%) 0.2 % 0.0-1.0 N NEUTROPHIL # (test code = NT#) 3.44 K/mm3 1.8-7.7 N LYMPHOCYTE # (test code = LY#) 1.29 K/mm3 1.0-5.0 N MONOCYTE # (test code = MO#) 0.83 K/mm3 0-0.8 H EOSINOPHIL # (test code = EO#) 0.29 K/mm3 0.0-0.5 N BASOPHIL # (test code = BA#) 0.01 K/mm3 0.0-0.2 N MANUAL DIFF REQUIRED (test code = MDIFF) NO, ONLY SCAN NEEDED Previously reported result: NO Edited by: TIMOTHY on 02/21/20:1252 DIFFERENTIAL [id number] 12:52:00* Test Item Value Reference Range Interpretation Comments STAIN ACCEPTABILITY (test code = STN ACCEPTABLE) CABOT RINGS (test code = CAB) MORPHOLOGY COMMENT (test code = MOC) PLATELET ESTIMATE (test code = PLTEST) PLATELET MORPHOLOGY (test code = PLTMORPH) CBC W/AUTO [id number] 12:52:00* Test Item Value Reference Range Interpretation Comments WHITE BLOOD CELL (test code = WBC) 5.9 K/mm3 4.5-12.5 N RED BLOOD CELL (test code = RBC) 3.89 mill/mm3 3.7-5.2 N HEMOGLOBIN (test code = HGB) 12.9 gram/dL 11.5-15.5 N HEMATOCRIT (test code = HCT) 39.2 % 36.0-46.0 N MEAN CELL VOLUME (test code = MCV) 100.8 fL 80-98 H MEAN CELL HGB (test code = MCH) 33.2 picogram 27.0-33.0 H MEAN CELL HGB CONCETRATION (test code = MCHC) 32.9 gram/dL 33.0-36. 0 L RED CELL DISTRIBUTION WIDTH (test code = RDW) 15.3 % 11.6-16. 2 N RED CELL DISTRIBUTION WIDTH SD (test code = RDW-SD) 57.4 fL 37 .0-51.0 H PLATELET COUNT (test code = PLT) 71 K/mm3 150-450 L MEAN PLATELET VOLUME (test code = MPV) 11.4 fL 6.7-11.0 H NEUTROPHIL % (test code = NT%) 58.6 % 39.0-69.0 N LYMPHOCYTE % (test code = LY%) 21.9 % 25.0-55.0 L MONOCYTE % (test code = MO%) 14.1 % 0.0-10.0 H EOSINOPHIL % (test code = EO%) 4.9 % 0.0-5.0 N BASOPHIL % (test code = BA%) 0.2 % 0.0-1.0 N NEUTROPHIL # (test code = NT#) 3.44 K/mm3 1.8-7.7 N LYMPHOCYTE # (test code = LY#) 1.29 K/mm3 1.0-5.0 N MONOCYTE # (test code = MO#) 0.83 K/mm3 0-0.8 H EOSINOPHIL # (test code = EO#) 0.29 K/mm3 0.0-0.5 N BASOPHIL # (test code = BA#) 0.01 K/mm3 0.0-0.2 N MANUAL DIFF REQUIRED (test code = MDIFF) NO, ONLY SCAN NEEDED Previously reported result: NO Edited by: TIMOTHY on 02/21/20:1252 DIFFERENTIAL [id number] 12:52:00* Test Item Value Reference Range Interpretation Comments STAIN ACCEPTABILITY (test code = STN ACCEPTABLE) CABOT RINGS (test code = CAB) MORPHOLOGY COMMENT (test code = MOC) PLATELET ESTIMATE (test code = PLTEST) PLATELET MORPHOLOGY (test code = PLTMORPH) CBC W/AUTO [id number] 12:52:00* Test Item Value Reference Range Interpretation Comments WHITE BLOOD CELL (test code = WBC) 5.9 K/mm3 4.5-12.5 N RED BLOOD CELL (test code = RBC) 3.89 mill/mm3 3.7-5.2 N HEMOGLOBIN (test code = HGB) 12.9 gram/dL 11.5-15.5 N HEMATOCRIT (test code = HCT) 39.2 % 36.0-46.0 N MEAN CELL VOLUME (test code = MCV) 100.8 fL 80-98 H MEAN CELL HGB (test code = MCH) 33.2 picogram 27.0-33.0 H MEAN CELL HGB CONCETRATION (test code = MCHC) 32.9 gram/dL 33.0-36. 0 L RED CELL DISTRIBUTION WIDTH (test code = RDW) 15.3 % 11.6-16. 2 N RED CELL DISTRIBUTION WIDTH SD (test code = RDW-SD) 57.4 fL 37 .0-51.0 H PLATELET COUNT (test code = PLT) 71 K/mm3 150-450 L MEAN PLATELET VOLUME (test code = MPV) 11.4 fL 6.7-11.0 H NEUTROPHIL % (test code = NT%) 58.6 % 39.0-69.0 N LYMPHOCYTE % (test code = LY%) 21.9 % 25.0-55.0 L MONOCYTE % (test code = MO%) 14.1 % 0.0-10.0 H EOSINOPHIL % (test code = EO%) 4.9 % 0.0-5.0 N BASOPHIL % (test code = BA%) 0.2 % 0.0-1.0 N NEUTROPHIL # (test code = NT#) 3.44 K/mm3 1.8-7.7 N LYMPHOCYTE # (test code = LY#) 1.29 K/mm3 1.0-5.0 N MONOCYTE # (test code = MO#) 0.83 K/mm3 0-0.8 H EOSINOPHIL # (test code = EO#) 0.29 K/mm3 0.0-0.5 N BASOPHIL # (test code = BA#) 0.01 K/mm3 0.0-0.2 N MANUAL DIFF REQUIRED (test code = MDIFF) NO, ONLY SCAN NEEDED Previously reported result: NO Edited by: TIMOTHY on 20:1252 DIFFERENTIAL [id number] 12:52:00* Test Item Value Reference Range Interpretation Comments STAIN ACCEPTABILITY (test code = STN ACCEPTABLE) MORPHOLOGY COMMENT (test code = MOC) PLATELET ESTIMATE (test code = PLTEST) PLATELET MORPHOLOGY (test code = PLTMORPH) CBC W/AUTO [id number] 12:52:00* Test Item Value Reference Range Interpretation Comments WHITE BLOOD CELL (test code = WBC) 5.9 K/mm3 4.5-12.5 N RED BLOOD CELL (test code = RBC) 3.89 mill/mm3 3.7-5.2 N HEMOGLOBIN (test code = HGB) 12.9 gram/dL 11.5-15.5 N HEMATOCRIT (test code = HCT) 39.2 % 36.0-46.0 N MEAN CELL VOLUME (test code = MCV) 100.8 fL 80-98 H MEAN CELL HGB (test code = MCH) 33.2 picogram 27.0-33.0 H MEAN CELL HGB CONCETRATION (test code = MCHC) 32.9 gram/dL 33.0-36. 0 L RED CELL DISTRIBUTION WIDTH (test code = RDW) 15.3 % 11.6-16. 2 N RED CELL DISTRIBUTION WIDTH SD (test code = RDW-SD) 57.4 fL 37 .0-51.0 H PLATELET COUNT (test code = PLT) 71 K/mm3 150-450 L MEAN PLATELET VOLUME (test code = MPV) 11.4 fL 6.7-11.0 H NEUTROPHIL % (test code = NT%) 58.6 % 39.0-69.0 N LYMPHOCYTE % (test code = LY%) 21.9 % 25.0-55.0 L MONOCYTE % (test code = MO%) 14.1 % 0.0-10.0 H EOSINOPHIL % (test code = EO%) 4.9 % 0.0-5.0 N BASOPHIL % (test code = BA%) 0.2 % 0.0-1.0 N NEUTROPHIL # (test code = NT#) 3.44 K/mm3 1.8-7.7 N LYMPHOCYTE # (test code = LY#) 1.29 K/mm3 1.0-5.0 N MONOCYTE # (test code = MO#) 0.83 K/mm3 0-0.8 H EOSINOPHIL # (test code = EO#) 0.29 K/mm3 0.0-0.5 N BASOPHIL # (test code = BA#) 0.01 K/mm3 0.0-0.2 N MANUAL DIFF REQUIRED (test code = MDIFF) NO, ONLY SCAN NEEDED Previously reported result: NO Edited by: TIMOTHY on 20:1252 DIFFERENTIAL [id number] 12:52:00* Test Item Value Reference Range Interpretation Comments STAIN ACCEPTABILITY (test code = STN ACCEPTABLE) CABOT RINGS (test code = CAB) MORPHOLOGY COMMENT (test code = MOC) PLATELET ESTIMATE (test code = PLTEST) PLATELET MORPHOLOGY (test code = PLTMORPH) - XR CHEST 2 [id number] 13:02:00 Name: DEBORAH AGUERO [facility] : 1955 Age/S:64 /F [address] [facility] Unit#:[id number] Loc: [place] [address] Phys: Ta Pendleton MD Dis Date: PHONE #: [phone] Status: REG ER FAX #: [phone] Exam Date: 02/11/2020 Reason: cough and congestion EXAMS: CPT CODE: [id number] XR CHEST 2 V 40484 HISTORY: Cough and congestion. COMPARISON: November 16, 2015. Location: [facility]. AP and lateral view of the chest: No acute infiltrates, effusion or congestion. Cardiomegaly. IMPRESSION: No acute infiltrates, effusion or congestion. at 1302 Reported and signed by: Weston Nuñez M.D. CC: Ta Pendleton MD Technologist: YENI CHENEY, RT(R),CT Trnscrpt Data: 02/11/2020 (1302) t.SDR.TH4 Orig Print D/T: S: 02/11/2020 (4101) PAGE 1 Signed Report COVID 19 INHOUSE [id number] 12:29:00* Test Item Value Reference Range Interpretation Comments COVID 19 INHOUSE AG (test code = [id number]) NEGATIVE CHEST SINGLE (NOT PORTABLE)2020-01-05 11:21:00 [place] [address] Patient Name: DEBORAH AGUERO MR #: [id number] : 1955 Age/Sex: 64/F Req #: [id number] Adm Physician: STORMY RYAN MD Ordered by: JESSICA RAMIREZ MD Report #: [id number] Location: MED/SURG2 Room/Bed: [facility] Procedure: [id number] DX/CHEST SINGLE (NOT PORTABLE) Exam Date: 01/05/20 Exam Time: 1110 REPORT STATUS: Signed EXAMINATION: C HEST SINGLE (NOT PORTABLE) INDICATION: Postprocedural COMPARISON: Chest CT 01/03/2020 FINDINGS: LINES/TUBES:EKG leads overlie the ch est. LUNGS:The lungs are well-inflated. Minimal right basilar opacities. No focal consolidation or pulmonary edema. PLEURA:Interval decrease in right pleural effusion, now trace. No pneumothorax status post right thoracentesis. MEDIASTINUM:The cardiomediastinal silhouette appears normal in size and s hape. BONES/SOFT TISSUES:No acute osseous injury. ABDOMEN:No free air under the diaphragm. IMPRESSION: No pneumothorax status post right th oracentesis. Interval decrease in right pleural effusion, now trace. Sig rosa by: Jessica Ramirez MD on 01/05/2020 11:23 AM Dictated By: JESSICA RAMIREZ MD 22 Transcribed By: CORBIN Young on 01/05/201122 COPY TO: JESSICA RAMIREZ MD Capillary blood glucose measurement by glucometer (mass/volume)2020-01-05 11:17:00* Test Item Value Reference Range Interpretation Comments Bedside Glucose (test code = 46162-4) 126 70-120 Meter ID: [id number] [facility] OF[facility]NWZ8848-22-01 11:11:00 [place] [address] Patient Name: DEBORAH AGUERO MR #: [id number] : 1955 Age/Sex: 64/F Req #: [id number] Adm Physician: STORMY RYAN MD Ordered by: HARINDER ZIMMERMAN MD Report #: [id number] Location: MED/SURG2 Room/Bed: [facility] Procedure: DX/IR CONSULT Exam Date: Exam Time: REPORT STATUS: Signed PROCEDURE: Ultrasound-guided thoracentesis Procedural Personnel Attending physician(s): Jessica Ramirez MD Fellow phys ician(s): None Resident physician(s): None Advanced practice provider(s): No ne Pre-procedure diagnosis: Right pleural effusion Post-procedure diagnos is: Same Indication: Pleural effusion with compromised respiration Additiona l clinical history: None Complications: No immediate complications. IM PRESSION: Ultrasound-guided thoracentesis with drainage of 700 mL of serous fluid. Plan: Resume care by clinical team. PROCEDURE SUMMARY: - Limited tho racic ultrasound - Ultrasound-guided thoracentesis - Additional procedure(s) : None PROCEDURE DETAILS: Pre-procedure Consent: Informed consent fo r the procedure including risks, benefits and alternatives was obtained and ti me-out was performed prior to the procedure. Preparation: The site was prepare d and draped using maximal sterile barrier technique including cutaneous antis epsis. Anesthesia/sedation Level of anesthesia/sedation: No sedation An esthesia/sedation administered by: Not applicable Total intra-service sedation time (minutes): None Limited thoracic ultrasound Limited thoracic ultras ound was performed using a curved transducer. A safe window for thoracentesis was identified. Left hemithorax findings: Not investigated Right hemithorax findings: Moderate pleural effusion Thoracentesis Local anesthesia was a dministered. The pleural space was accessed under real-time ultrasound guidanc e and fluid return confirmed position. The fluid was drained. The catheter wa s removed, and a sterile bandage was applied. Catheter placed: 5F Melbaeh Post- drainage hemithorax findings: No visible pleural effusion Additional Detail s Additional description of procedure: None Equipment details: None Specim ens removed: Pleural fluid Estimated blood loss (mL): Less than 10 Standardi zed report: SIR_Thoracentesis_v3 Attestation Signer name: Jessica Ramirez MD I attest that I was present for the entire procedure. I reviewed the stored images and agree with the report as written. Signed by: Elisabeth Issa on 01/05/2020 11:12 AM Dictated By: JESSICA RAMIREZ MD 111 Transcribed By: LIV on 01/05/201111 COPY TO: HARINDER ZIMMERMAN MD THORACENTESIS/IMAGE [id number] 11:11:00 [facility] [address] [address] Patient Name: DEBORAH AGUERO MR #: [id number] : 1955 Age/Sex: 64/F Req #: [id number] Adm Physician: STORMY RYAN MD Ordered by: HARINDER ZIMMERMAN MD Report #: [id number] Location: MED/SURG2 Room/Bed: [facility] Procedure: US/THORACENTESIS/IM AGE GUIDED Exam Date: 01/05/20 Exam Time: 1047 REPORT STATUS: Signed PROCEDURE: Ultr asound-guided thoracentesis Procedural Personnel Attending physician(s): Jessica Ramirez MD Fellow physician(s): None Resident physician(s): None [facility] practice provider(s): None Pre-procedure diagnosis: Right pleural effus ion Post-procedure diagnosis: Same Indication: Pleural effusion with comprom ised respiration Additional clinical history: None Complications: No imme diate complications. IMPRESSION: Ultrasound-guided thoracentesis with drainage of 700 mL of serous fluid. Plan: Resume care by yomaira hough PROCED URE SUMMARY: - Limited thoracic ultrasound - Ultrasound-guided thoracentesis - Additional procedure(s): None PROCEDURE DETAILS: Pre-procedure Consent: Informed consent for the procedure including risks, benefits and alte rnatives was obtained and time-out was performed prior to the procedure. Prepa ration: The site was prepared and draped using maximal sterile barrier techniq ue including cutaneous antisepsis. Anesthesia/sedation Level of anesthesi a/sedation: No sedation Anesthesia/sedation administered by: Not applicable Total intra-service sedation time (minutes): None Limited thoracic ultrasou nd Limited thoracic ultrasound was performed using a curved transducer. A safe window for thoracentesis was identified. Left hemithorax findings: Not inv estigated Right hemithorax findings: Moderate pleural effusion Thoracente sis Local anesthesia was administered. The pleural space was accessed under real-time ultrasound guidance and fluid return confirmed position. The fluid was drained. The catheter was removed, and a sterile bandage was applied. Cath eter placed: 5F Yueh Post-drainage hemithorax findings: No visible pleural eff usion Additional Details Additional description of procedure: None Equi pment details: None Specimens removed: Pleural fluid Estimated blood loss (m L): Less than 10 Standardized report: SIR_Thoracentesis_v3 Attestation Signer name: Jessica Ramirez MD I attest that I was present for the entire procedu re. I reviewed the stored images and agree with the report as written. Signed by: Jessica Ramirez MD on 01/05/2020 11:12 AM Dictated By: JESSICA RAMIREZ MD 1112 Transcribed By: LIV on 01/05/20 1112 COPY TO: HARINDER ZIMMERMAN MD Specimen source identification of body [id number] 10:59:00* Test Item Value Reference Range Interpretation Comments Body Fluid Type (test code = 08510-3) PLEURAL [facility] fluid 2020-01-05 10:59:00* Test Item Value Reference Range Interpretation Comments Body Fluid Color (test code = 6824-7) RED [facility] CenterDetermination of appearance of body fluid 2020-01-05 10:59:00* Test Item Value Reference Range Interpretation Comments Body Fluid Appearance (test code = 9335-1) CLOUDY [facility] fluid leukocytes count (number/volume)2020-01-05 10:59:00* Test Item Value Reference Range Interpretation Comments Body Fluid WBC (test code = 6743-9) 1100 [facility] body fluid erythrocytes count (number/volume)2020-01-05 10:59:00* Test Item Value Reference Range Interpretation Comments Body Fluid RBC (test code = 6741-3) 8195 [facility] fluid lymphocyte cutkj9202-03-48 10:59:00* Test Item Value Reference Range Interpretation Comments Body Fluid Lymphocytes (test code = 51612360) 77 [facility] CenterBody fluid monocyte rttkc7435-74-12 10:59:00* Test Item Value Reference Range Interpretation Comments Body Fluid Monocytes (test code = 04191-4) 19 [facility] fluid other cells manual count 2020-01-05 10:59:00* Test Item Value Reference Range Interpretation Comments Body Fluid Other Cells (test code = 956781836) 4 [facility] CELLSFreestone [facility] CenterTotal cell count 2020-01-05 10:59:00* Test Item Value Reference Range Interpretation Comments Body Fluid Total Cells Counted (test code = 13400-5) 100 [facility] fluid sodium measurement (moles/volume)2020-01-05 10:59:00* Test Item Value Reference Range Interpretation Comments Body Fluid Sodium (test code = 2950-4) 146 [facility] fluid potassium measurement (moles/volume)2020-01-05 10:59:00* Test Item Value Reference Range Interpretation Comments Body Fluid Potassium (test code = 2821-7) 3.1 [facility]Body fluid glucose measurement (mass/volume)2020-01-05 10:59:00* Test Item Value Reference Range Interpretation Comments Body Fluid Glucose (test code = 2344-0) 126 [facility] fluid protein measurement (mass/volume)2020-01-05 10:59:00* Test Item Value Reference Range Interpretation Comments Body Fluid Total Protein (test code = 2881-1) 1.3 [facility]Body fluid lactate dehydrogenase measurement (enzymatic activity/volume)2020-01-05 10:59:00* Test Item Value Reference Range Interpretation Comments Body Fluid Lactate Dehydrogenase (test code = 723662176) 80 No reference range has been established for this specimen type.[facility] CenterBlood leukocytes automated count (number/volume) 2020-01-05 07:45:00* Test Item Value Reference Range Interpretation Comments White Blood Count (test code = 6690-2) 6.67 4.8-10.8 [facility] CenterBlood erythrocytes automated count (number/volume)2020-01-05 07:45:00* Test Item Value Reference Range Interpretation Comments Red Blood Count (test code = 789-8) 3.85 3.6-5.1 [facility] CenterBlood hemoglobin measurement (moles/volume)2020-01-05 07:45:00* Test Item Value Reference Range Interpretation Comments Hemoglobin (test code = 69564-6) 12.4 12.0-16.0 [facility] CenterAutomated blood hematocrit (volume fraction)2020-01-05 07:45:00* Test Item Value Reference Range Interpretation Comments Hematocrit (test code = 4544-3) 37.8 34.2-44.1 [facility] CenterAutomated erythrocyte mean corpuscular jzitej4335-14-66 07:45:00* Test Item Value Reference Range Interpretation Comments Mean Corpuscular Volume (test code = 787-2) 98.2 81-99 [facility] CenterAutomated erythrocyte mean corpuscular hemoglobin (mass per erythrocyte)2020-01-05 07:45:00* Test Item Value Reference Range Interpretation Comments Mean Corpuscular Hemoglobin (test code = 785-6) 32.2 28-32 [facility] CenterAutomated erythrocyte mean corpuscular hemoglobin concentration measurement (mass/volume)2020-01-05 07:45:00* Test Item Value Reference Range Interpretation Comments Mean Corpuscular Hemoglobin Concent (test code = 786-4) 32.8 31-35 [facility] CenterRDW RodPb-Xzb0324-18-12 07:45:00* Test Item Value Reference Range Interpretation Comments Red Cell Distribution Width (test code = 28420-5) 16.8 11.7 -14.4 [facility] CenterAutomated blood platelet count (count/volume)2020-01-05 07:45:00* Test Item Value Reference Range Interpretation Comments Platelet Count (test code = 777-3) 80 140-360 [facility] CenterAutomated blood segmented neutrophil count as percentage of total gazuljsujj1934-03-87 07:45:00* Test Item Value Reference Range Interpretation Comments Neutrophils (%) (Auto) (test code = 45548-3) 52.9 38.7-80.0 [facility] CenterAutomated blood lymphocyte count as percentage ot total yddrmplcch8348-77-74 07:45:00* Test Item Value Reference Range Interpretation Comments Lymphocytes (%) (Auto) (test code = 736-9) 28.6 18.0-39.1 [facility] CenterAutomated blood monocyte count as percentage of total bcxaikgkei0904-74-34 07:45:00* Test Item Value Reference Range Interpretation Comments Monocytes (%) (Auto) (test code = 5905-5) 11.8 4.4-11.3 [facility] CenterAutatrium health harrisburged blood eosinophil count as percentage of total lnadfxaggp8788-88-66 07:45:00* Test Item Value Reference Range Interpretation Comments Eosinophils (%) (Auto) (test code = 713-8) 5.2 0.0-6.0 [facility] CenterAutomated blood basophil count as percentage of total jzmlhmgqxa7534-96-89 07:45:00* Test Item Value Reference Range Interpretation Comments Basophils (%) (Auto) (test code = 706-2) 0.9 0.0-1.0 [facility] CenterFluoroscopic procedure less than one hour zkndgtqm3958-44-60 07:45:00* Test Item Value Reference Range Interpretation Comments IM GRANULOCYTES % (test code = IM GRANULOCYTES %) 0.6 0.0- 1.0 [facility] CenterAutomated blood neutrophil count 2020-01-05 07:45:00* Test Item Value Reference Range Interpretation Comments Neutrophils # (Auto) (test code = 751-8) 3.5 2.1-6.9 [facility] CenterBlood lymphocytes count (number/volume) 2020-01-05 07:45:00* Test Item Value Reference Range Interpretation Comments Lymphocytes # (Auto) (test code = 42523-0) 1.9 1.0-3.2 [facility] CenterBlood monocytes automated count (number/volume)2020-01-05 07:45:00* Test Item Value Reference Range Interpretation Comments Monocytes # (Auto) (test code = 742-7) 0.8 0.2-0.8 [facility] CenterAutomated blood eosinophil count 2020-01-05 07:45:00* Test Item Value Reference Range Interpretation Comments Eosinophils # (Auto) (test code = 711-2) 0.4 0.0-0.4 [facility] CenterAutomated blood basophil count (count/volume)2020-01-05 07:45:00* Test Item Value Reference Range Interpretation Comments Basophils # (Auto) (test code = 704-7) 0.1 0.0-0.1 [facility] CenterFluoroscopic procedure less than one hour hulkjfxt2838-76-00 07:45:00* Test Item Value Reference Range Interpretation Comments Absolute Immature Granulocyte (auto ([place] t code = Absolute Immature Granulocyte (auto) 0.04 0-0.1 [facility] CenterProthrombin time (PT) in platelet poor plasma by coagulation diiei8040-61-77 07:45:00* Test Item Value Reference Range Interpretation Comments Prothrombin Time (test code = 5902-2) 20.1 11.9-14.5 [facility] CenterINR in Platelet poor plasma by Coagulation cyqdz2193-84-81 07:45:00* Test Item Value Reference Range Interpretation Comments Prothromb Time International Ratio (test code = 6301-6) 1.61 Oral Anticoagulant Therapy INR Values:1. Low Intensity Therapy 1.5 - 2.02 . Moderate Intensity Therapy 2.0 - 3.03. High Intensity Therapy(1) 2.5 - 3. 54. High Intensity Therapy(2) 3.0 - 4.05. Panic Value INR > 5.0 [facility] plasma sodium measurement (moles/volume)2020-01-05 07:45:00* Test Item Value Reference Range Interpretation Comments Sodium Level (test code = 2951-2) 144 136-145 [facility] Hospitalerum or plasma potassium measurement (moles/volume)2020-01-05 07:45:00* Test Item Value Reference Range Interpretation Comments Potassium Level (test code = 2823-3) 3.0 3.5-5.1 [facility] Hospitalerum or plasma chloride measurement (moles/volume)2020-01-05 07:45:00* Test Item Value Reference Range Interpretation Comments Chloride Level (test code = 2075-0) 107 98-107 [facility] Hospitalerum or plasma carbon dioxide, total measurement (moles/volume)2020-01-05 07:45:00* Test Item Value Reference Range Interpretation Comments Carbon Dioxide Level (test code = 2028-9) 32 22-29 [facility] Hospitalerum or plasma anion jio8525-15-36 07:45:00* Test Item Value Reference Range Interpretation Comments Anion Gap (test code = 50735-2) 8.0 8-16 [facility] Hospitalerum or plasma urea nitrogen measurement (mass/volume)2020-01-05 07:45:00* Test Item Value Reference Range Interpretation Comments Blood Urea Nitrogen (test code = 3094-0) 9 7-26 [facility] Hospitalerum or plasma creatinine measurement (mass/volume)2020-01-05 07:45:00* Test Item Value Reference Range Interpretation Comments Creatinine (test code = 2160-0) 1.07 0.57-1.11 [facility]erum or plasma urea nitrogen/creatinine mass mynaq5404-04-38 07:45:00* Test Item Value Reference Range Interpretation Comments BUN/Creatinine Ratio (test code = 3097-3) 8 6-25 [facility] CenterEstimated glomerular filtration rate (GFR) xmkmsmjhezprk2075-81-64 07:45:00* Test Item Value Reference Range Interpretation Comments Estimat Glomerular Filtration Rate (test code = 246905101) 51 >60 Ranges were taken from the National Kidney Disease Education Program and the [place] [facility] Kid[facility] Foundation literature.Reference ranges:60 or greater: Klcpah64-26 ( for 3 consecutive months): Chronic kidney disease 15 or less: Kidney failureFreestone Medical CenterGlucose ykwqjiraglc7377-04-19 07:45:00* Test Item Value Reference Range Interpretation Comments Glucose Level (test code = VQQ5676) 65 74-118 [facility]erum or plasma calcium measurement (mass/volume)2020-01-05 07:45:00* Test Item Value Reference Range Interpretation Comments Calcium Level (test code = 56874-4) 8.5 8.4-10.2 [facility] Hospitalerum or plasma magnesium measurement (mass/volume)2020-01-05 07:45:00* Test Item Value Reference Range Interpretation Comments Magnesium Level (test code = 67678-3) 1.6 1.3-2.1 [facility] CenterAmmonia Taw-pZco0447-81-11 09:55:00* Test Item Value Reference Range Interpretation Comments Ammonia (test code = 19202-9) 195 31-123 [facility]erum or plasma total bilirubin measurement (mass/volume)2020-01-04 06:10:00* Test Item Value Reference Range Interpretation Comments Total Bilirubin (test code = 1975-2) 4.0 0.2-1.2 [facility] CenterFluoroscopic procedure less than one hour ymziitob4229-85-86 06:10:00* Test Item Value Reference Range Interpretation Comments Aspartate Amino Transf (AST/SGOT) (test code = Aspartate Amino Transf (AST/SGOT)) 28 5-34 [facility] Hospitalerum or plasma alanine aminotransferase measurement (enzymatic activity/volume)2020-01-04 06:10:00* Test Item Value Reference Range Interpretation Comments Alanine Aminotransferase (ALT/SGPT) (test code = 1742-6) 22 0-55 [facility] Hospitalerum or plasma protein measurement (mass/volume)2020-01-04 06:10:00* Test Item Value Reference Range Interpretation Comments Total Protein (test code = 2885-2) 6.5 6.5-8.1 [facility] Hospitalerum or plasma albumin measurement (mass/volume)2020-01-04 06:10:00* Test Item Value Reference Range Interpretation Comments Albumin (test code = 1751-7) 2.1 3.5-5.0 [facility] CenterPlasma globulin measurement (mass/volume) 2020-01-04 06:10:00* Test Item Value Reference Range Interpretation Comments Globulin (test code = 68867-5) 4.4 2.3-3.5 [facility] Hospitalerum or plasma albumin/globulin mass hzpas2091-40-62 06:10:00* Test Item Value Reference Range Interpretation Comments Albumin/Globulin Ratio (test code = 1759-0) 0.5 0.8-2.0 [facility] Hospitalerum or plasma alkaline phosphatase measurement (enzymatic activity/volume)2020-01-04 06:10:00* Test Item Value Reference Range Interpretation Comments Alkaline Phosphatase (test code = 6768-6) 178 40-150 [facility] Hospitalerum or plasma hepatitis A virus IgM antibody detection by rgbvvlenfsf5511-59-73 06:10:00* Test Item Value Reference Range Interpretation Comments Hepatitis A IgM Antibody (test code = 22791-5) Negative Negativ e [facility] Hospitalerum or plasma hepatitis B virus surface antigen detection by ehnvhbdxdhv1410-77-54 06:10:00* Test Item Value Reference Range Interpretation Comments Hepatitis B Surface Antigen (test code = 5196-1) Negative Negat michael [facility] Hospitalerum or plasma hepatitis B virus core IgM antibody detection by japydynvygo3228-21-96 06:10:00* Test Item Value Reference Range Interpretation Comments Hepatitis B Core IgM Antibody (test code = 66055-1) Negative Ne gative [facility] Hospitalerum hepatitis C virus antibody twcofnigu5913-86-99 06:10:00* Test Item Value Reference Range Interpretation Comments Hepatitis C Antibody (test code = 93660-5) >11.0 0.0-0.9 Negative: < 0.8 Indeterminate: 0.8 - 0.9 Positive: > 0.9 The CDC recommends that a positive HCV antibody result be followed up with a HCV Nucleic Acid Amplification test (037831).Performed at: [address] [id number] Director: Nciholas Nuñez MD, Phone: [phone] Medical CenterFluoroscopic procedure less than one hour cjrxcseq7858-06-25 15:05:00* Test Item Value Reference Range Interpretation Comments Coronavirus (PCR) (test code = Coronavirus (PCR)) NOT DETECTED NOTD ETECTED SARS-COV2/RT-PCRNegative results do not preclude SARS-CoV-2 infection and should not be used as the sole basis for patient management decisions. Negative results must be combined with clinical observations, patient history, and epidemiologi judy information. A false negative result may occur if a specimen is improperly c ollected, transported or handled.The limit of detection for this assay is 250 co pies/mLThe SARS-CoV-2 test is a rapid, real-time RT-PCR test intended for the qu alitative detection of nucleic acid from SARS-CoV-2 in nasopharyngeal swab speci men collected from individuals suspected of COVID-19 by their healthcare provide r. This test has not been Food and Drug Administration (FDA) cleared or approved and has been authorized by FDA under an Emergency Use Authorization (EUA). This EUA will be effective until the declaration that circumstances exist justifying the authorization of the emergency use of in vitro diagnostic test for detection and or diagnosis of COVID-19 is terminated under section 564(b) of the Act, or the the EUA is revoked under 564(g) of the ACT.Testing performed by [address] [id number] [place] [address] B3388-61-32 14:22:00 [facility] [address] [place] [address] Patient Name: DEBORAH AGUERO MR #: [id number] : 1955 Age/Sex: 64/F Req #: [id number] Adm Physician: Ordered by: Kedar Aguilar MD Report #: [id number] Location: ER Room/Bed: Procedure: [id number] CT/CT CHEST W Exam Date: 01/03/20 Exam Time: 1330 REPORT STATUS: Signed EXAM: CT Chest, Abdomen and Pelvis WITH intravenous contrast INDICATION: Shortness of breath, abd ominal pain COMPARISON: None. TECHNIQUE: The chest, abdomen and pelvis were scanned utilizing a multidetector helical scanner from the thoracic inlet to the pubic symphysis following administration of IV contrast. Coronal and sagittal reformations were obtained. Scan was performed during portal venous p hase. IV CONTRAST: 100cc Isovue 370 ORAL CONTRAST: Water COMPLICATIONS: None RADIATION DOSE: Total DLP: 945 mGy*cm Do se modulation, iterative reconstruction, and/or weight based adjustment of the mA/kV was utilized to reduce the radiation dose to as low as reasonably achie vable. FINDINGS: LINES/ TUBES: None. LUNGS AND AIRWAYS: The centra l airways are patent. Dependent right lower lobe and to a lesser extent left l ower lobe subsegmental atelectasis. No focal consolidation. No air space edema . PLEURA: Moderate right and small left pleural effusions. No pneumothorax . HEART AND MEDIASTINUM: The thyroid gland is not visualized. No supraclavi cular, axillary, mediastinal, or hilar lymphadenopathy. The heart is not enlar ged. No pericardial effusion. Mitral annular calcifications. Scattered atheros clerotic calcifications of the thoracic aorta. No central pulmonary embolism. HEPATOBILIARY: Diffuse hepatic steatosis and nodular liver surface contour. No biliary ductal dilation. Status post cholecystectomy. SPLEEN: No spl enomegaly. PANCREAS: No focal masses or ductal dilatation. ADRENALS: N o adrenal nodules. KIDNEYS/URETERS: No renal calculi, hydronephrosis, or solid renal mass lesion. PELVIC ORGANS/BLADDER: Unremarkable. PERITONEUM / RET ROPERITONEUM: Trace ascites in the pelvis. No free air. LYMPH NODES: No lympha denopathy. VESSELS: Sequela of portal hypertension with recanalization of the umbilical vein and a very large splenorenal shunt. Small left pelvic portosyst emic varices. GI TRACT: Mild stomach and proximal duodenal wall thickenin g, possibly related to portal gastropathy. No bowel obstruction. BONES AN D SOFT TISSUES: No acute osseous injury. No suspicious lytic or blastic lesion s. IMPRESSION: Moderate right and small left pleural effusions. No focal pneumonia or pulmonary airspace edema. Hepatic cirrhosis and sequela of portal hypertension including recanalization of the umbilical vein and promine nt portosystemic varices, most notably a large splenorenal shunt. Mild st omach and proximal duodenal wall thickening, possibly related to portal gastro kailyn. Signed by: Jessica Ramirez MD on 01/03/2020 2:33 PM Dicta mal By: JESSICA RAMIREZ MD 143 Transcribed By: LIV on 01/03/20 1433 COPY TO: KEDAR AGUILAR MD CT ABDOMEN/PELVIS [id number] 14:22:00 [place] [id number] Patient Name: DEBORAH AGUERO MR #: [id number] : 1955 Age/Sex: 64/F Req #: [id number] Adm Physician: Ordered by: Kedar Aguilar MD Report #: [id number] Location: ER Room/Bed: Procedure: [id number] CT/CT ABDOME N/PELVIS W Exam Date: 01/03/20 Exam Time: 1330 REPORT STATUS: Signed EXAM: CT Chest, Abdomen and Pelvis WITH intravenous contrast INDICATION: Shortness of br eath, abdominal pain COMPARISON: None. TECHNIQUE: The chest, abdomen a nd pelvis were scanned utilizing a multidetector helical scanner from the thor acic inlet to the pubic symphysis following administration of IV contrast. Cor onal and sagittal reformations were obtained. Scan was [...] right and small left pleural effusions. No pne umothorax. HEART AND MEDIASTINUM: The thyroid gland is not visualized. No s upraclavicular, axillary, mediastinal, or hilar lymphadenopathy. The heart is not enlarged. No pericardial effusion. Mitral annular calcifications. Scattere d atherosclerotic calcifications of the thoracic aorta. No central pulmonary embolism. HEPATOBILIARY: Diffuse hepatic steatosis and nodular liver surfac e contour. No biliary ductal dilation. Status post cholecystectomy. SPLEE N: No splenomegaly. PANCREAS: No focal masses or ductal dilatation. AD RENALS: No adrenal nodules. KIDNEYS/URETERS: No renal calculi, hydronephrosis, or solid renal mass lesion. PELVIC ORGANS/BLADDER: Unremarkable. PERITON EUM / RETROPERITONEUM: Trace ascites in the pelvis. No free air. LYMPH NODES: No lymphadenopathy. VESSELS: Sequela of portal hypertension with recanalizatio n of the umbilical vein and a very [...] or pulmonary airspace edema. Hepatic cirrhosis and se quela of portal hypertension including recanalization of the umbilical vein an d prominent portosystemic varices, most notably a large splenorenal shunt. Mild stomach and proximal duodenal wall thickening, possibly related to portal gastropathy. Signed by: Jessica Ramirez MD on 01/03/2020 2:33 PM Dictated By: JESSICA RAMIREZ MD 1433 Transcribed By: LIV on 01/03/20 143 COPY TO: KEDAR AGUILAR MD BNP [id number] 12:26:00* Test Item Value Reference Range Interpretation Comments B-Type Natriuretic Peptide (test code = 64039-0) 424.2 0-100 [facility] CenterT[facility] measurement by highly sensitive enzyme vxtpkbxberp4101-81-71 12:26:00* Test Item Value Reference Range Interpretation Comments Troponin I (test code = 89302-1) 0.007 0-0.300 [facility] CenterCapillary blood glucose measurement by glucometer (mass/volume)2019-09-28 11:19:00* Test Item Value Reference Range Interpretation Comments Bedside Glucose (test code = 43892-1) 303 70-120 Meter ID: [id number] [facility] measurement by glucometer (mass/volume)2019-09-28 11:19:00* Test Item Value Reference Range Interpretation Comments Bedside Glucose (test code = 57405-8) 303 70-120 Meter ID: [id number] [facility] measurement by glucometer (mass/volume)2019-09-28 11:19:00* Test Item Value Reference Range Interpretation Comments Bedside Glucose (test code = 34370-1) 303 70-120 Meter ID: [id number] [facility] CenterCHEST SINGLE (PORTABLE)2019-09-28 09:42:00 [place] [address] Patient Name: DEBORAH AGUERO MR #: [id number] : 1955 Age/Sex: 64/F Req #: [id number] Adm Physician: STORMY RYAN MD Ordered by: STORMY RYAN MD Report #: [id number] Location: MED/SURG2 Room/Bed: [facility] Procedure: [id number] DX/CHEST SINGLE ( PORTABLE) Exam Date: 09/28/19 [...] Count (test code = 6690-2) 5.97 4.8-10.8 [facility] erythrocytes automated count (number/volume)2019-09-28 05:10:00* Test Item Value Reference Range Interpretation Comments Red Blood Count (test code = 789-8) 3.44 3.6-5.1 [facility] CenterBlood hemoglobin measurement (moles/volume)2019-09-28 05:10:00* Test Item Value Reference Range Interpretation Comments Hemoglobin (test code = 79103-3) 11.5 12.0-16.0 [facility] CenterAutomated blood hematocrit (volume fraction)2019-09-28 05:10:00* Test Item Value Reference Range Interpretation Comments Hematocrit (test code = 4544-3) 35.1 34.2-44.1 [facility] CenterAutomated erythrocyte mean corpuscular qfhaxj9391-79-94 05:10:00* Test Item Value Reference Range Interpretation Comments Mean Corpuscular Volume (test code = 787-2) 102.0 81-99 [facility] CenterAutomated erythrocyte mean corpuscular hemoglobin (mass per erythrocyte)2019-09-28 05:10:00* Test Item Value Reference Range Interpretation Comments Mean Corpuscular Hemoglobin (test code = 785-6) 33.4 28-32 [facility] CenterAutomated erythrocyte mean corpuscular hemoglobin concentration measurement (mass/volume)2019-09-28 05:10:00* Test Item Value Reference Range Interpretation Comments Mean Corpuscular Hemoglobin Concent (test code = 786-4) 32.8 31-35 [facility] CenterRDW IhmHd-Agd5221-32-05 05:10:00* Test Item Value Reference Range Interpretation Comments Red Cell Distribution Width (test code = 10944-1) 15.3 11.7 -14.4 [facility] CenterAutomated blood platelet count (count/volume)2019-09-28 05:10:00* Test Item Value Reference Range Interpretation Comments Platelet Count (test code = 777-3) 77 140-360 [facility] CenterAutomated blood segmented neutrophil count as percentage of total fixdzkjran7257-05-64 05:10:00* Test Item Value Reference Range Interpretation Comments Neutrophils (%) (Auto) (test code = 30125-3) 52.2 38.7-80.0 [facility] CenterAutomated blood lymphocyte count as percentage ot total sowbvoqmsu7321-03-02 05:10:00* Test Item Value Reference Range Interpretation Comments Lymphocytes (%) (Auto) (test code = 736-9) 29.3 18.0-39.1 [facility] CenterAutomated blood monocyte count as percentage of total byznlpuufi6547-87-68 05:10:00* Test Item Value Reference Range Interpretation Comments Monocytes (%) (Auto) (test code = 5905-5) 12.2 4.4-11.3 [facility] CenterAutomated blood eosinophil count as percentage of total nufgqwwjzv7335-78-38 05:10:00* Test Item Value Reference Range Interpretation Comments Eosinophils (%) (Auto) (test code = 713-8) 5.5 0.0-6.0 [facility] CenterAutomated blood basophil count as percentage of total byblbanrmw0627-62-35 05:10:00* Test Item Value Reference Range Interpretation Comments Basophils (%) (Auto) (test code = 706-2) 0.5 0.0-1.0 [facility] CenterFluoroscopic procedure less than one hour nqckxrka7006-34-49 05:10:00* Test Item Value Reference Range Interpretation Comments IM GRANULOCYTES % (test code = IM GRANULOCYTES %) 0.3 0.0- 1.0 [facility] CenterAutomated blood neutrophil count 2019-09-28 05:10:00* Test Item Value Reference Range Interpretation Comments Neutrophils # (Auto) (test code = 751-8) 3.1 2.1-6.9 [facility] CenterBlood lymphocytes count (number/volume) 2019-09-28 05:10:00* Test Item Value Reference Range Interpretation Comments Lymphocytes # (Auto) (test code = 51281-3) 1.8 1.0-3.2 [facility] CenterBlood monocytes automated count (number/volume)2019-09-28 05:10:00* Test Item Value Reference Range Interpretation Comments Monocytes # (Auto) (test code = 742-7) 0.7 0.2-0.8 [facility] CenterAutomated blood eosinophil count 2019-09-28 05:10:00* Test Item Value Reference Range Interpretation Comments Eosinophils # (Auto) (test code = 711-2) 0.3 0.0-0.4 [facility] CenterAutomated blood basophil count (count/volume)2019-09-28 05:10:00* Test Item Value Reference Range Interpretation Comments Basophils # (Auto) (test code = 704-7) 0.0 0.0-0.1 [facility] CenterFluoroscopic procedure less than one hour melbkbzt8349-60-16 05:10:00* Test Item Value Reference Range Interpretation Comments Absolute Immature Granulocyte (auto ([place] t code = Absolute Immature Granulocyte (auto) 0.02 0-0.1 [facility] sodium measurement (moles/volume)2019-09-28 05:10:00* Test Item Value Reference Range Interpretation Comments Sodium Level (test code = 2951-2) 138 136-145 [facility] Hospitalerum or plasma potassium measurement (moles/volume)2019-09-28 05:10:00* Test Item Value Reference Range Interpretation Comments Potassium Level (test code = 2823-3) 3.4 3.5-5.1 [facility] Hospitalerum or plasma chloride measurement (moles/volume)2019-09-28 05:10:00* Test Item Value Reference Range Interpretation Comments Chloride Level (test code = 2075-0) 100 98-107 [facility] Hospitalerum or plasma carbon dioxide, total measurement (moles/volume)2019-09-28 05:10:00* Test Item Value Reference Range Interpretation Comments Carbon Dioxide Level (test code = 2028-9) 33 22-29 [facility] Hospitalerum or plasma anion zco8216-57-28 05:10:00* Test Item Value Reference Range Interpretation Comments Anion Gap (test code = 12227-7) 8.4 8-16 [facility]erum or plasma urea nitrogen measurement (mass/volume)2019-09-28 05:10:00* Test Item Value Reference Range Interpretation Comments Blood Urea Nitrogen (test code = 3094-0) 7 7-26 [facility]erum or plasma creatinine measurement (mass/volume)2019-09-28 05:10:00* Test Item Value Reference Range Interpretation Comments Creatinine (test code = 2160-0) 0.90 0.57-1.11 [facility] Hospitalerum or plasma urea nitrogen/creatinine mass olkkj0260-90-20 05:10:00* Test Item Value Reference Range Interpretation Comments BUN/Creatinine Ratio (test code = 3097-3) 8 6-25 [facility] CenterEstimated glomerular filtration rate (GFR) pfwgccgcqosih2740-87-74 05:10:00* Test Item Value Reference Range Interpretation Comments Estimat Glomerular Filtration Rate (test code = 987272821) > 60 >60 Ranges were taken from the National Kidney Disease Education Program and the [facility] Kidney Foundation literature.Reference ranges:60 or greater: Ipjhcj83-98 ( for 3 consecutive months): Chronic kidney disease 15 or less: Kidney failureFreestone Medical CenterGlucose gjcqexxjysw8506-41-80 05:10:00* Test Item Value Reference Range Interpretation Comments Glucose Level (test code = ACP1857) 310 74-118 [facility] Hospitalerum or plasma calcium measurement (mass/volume)2019-09-28 05:10:00* Test Item Value Reference Range Interpretation Comments Calcium Level (test code = 90087-4) 8.0 8.4-10.2 [facility] Hospitalerum or plasma magnesium measurement (mass/volume)2019-09-28 05:10:00* Test Item Value Reference Range Interpretation Comments Magnesium Level (test code = 74634-3) 1.5 1.3-2.1 [facility] Hospitalerum or plasma total bilirubin measurement (mass/volume)2019-09-28 05:10:00* Test Item Value Reference Range Interpretation Comments Total Bilirubin (test code = 1975-2) 3.4 0.2-1.2 [facility] CenterFluoroscopic procedure less than one hour qawrgbds1747-66-79 05:10:00* Test Item Value Reference Range Interpretation Comments Aspartate Amino Transf (AST/SGOT) (test code = Aspartate Amino Transf (AST/SGOT)) 34 5-34 [facility] Hospitalerum or plasma alanine aminotransferase measurement (enzymatic activity/volume)2019-09-28 05:10:00* Test Item Value Reference Range Interpretation Comments Alanine Aminotransferase (ALT/SGPT) (test code = 1742-6) 28 0-55 [facility] Hospitalerum or plasma protein measurement (mass/volume)2019-09-28 05:10:00* Test Item Value Reference Range Interpretation Comments Total Protein (test code = 2885-2) 5.8 6.5-8.1 [facility] Hospitalerum or plasma albumin measurement (mass/volume)2019-09-28 05:10:00* Test Item Value Reference Range Interpretation Comments Albumin (test code = 1751-7) 1.9 3.5-5.0 [facility] CenterPlasma globulin measurement (mass/volume) 2019-09-28 05:10:00* Test Item Value Reference Range Interpretation Comments Globulin (test code = 63590-7) 3.9 2.3-3.5 [facility] Hospitalerum or plasma albumin/globulin mass xexza9629-07-56 05:10:00* Test Item Value Reference Range Interpretation Comments Albumin/Globulin Ratio (test code = 1759-0) 0.5 0.8-2.0 [facility] Hospitalerum or plasma alkaline phosphatase measurement (enzymatic activity/volume)2019-09-28 05:10:00* Test Item Value Reference Range Interpretation Comments Alkaline Phosphatase (test code = 6768-6) 205 40-150 [facility] CenterBlood leukocytes automated count (number/volume)2019-09-28 05:10:00* Test Item Value Reference Range Interpretation Comments White Blood Count (test code = 6690-2) 5.97 4.8-10.8 [facility] CenterBll[facility] erythrocytes automated count (number/volume)2019-09-28 05:10:00* Test Item Value Reference Range Interpretation Comments Red Blood Count (test code = 789-8) 3.44 3.6-5.1 [facility] CenterBlood hemoglobin measurement (moles/volume)2019-09-28 05:10:00* Test Item Value Reference Range Interpretation Comments Hemoglobin (test code = 43112-2) 11.5 12.0-16.0 [facility] CenterAutomated blood hematocrit (volume fraction)2019-09-28 05:10:00* Test Item Value Reference Range Interpretation Comments Hematocrit (test code = 4544-3) 35.1 34.2-44.1 [facility] CenterAutomated erythrocyte mean corpuscular pehrbj7348-28-37 05:10:00* Test Item Value Reference Range Interpretation Comments Mean Corpuscular Volume (test code = 787-2) 102.0 81-99 [facility] CenterAutomated erythrocyte mean corpuscular hemoglobin (mass per erythrocyte)2019-09-28 05:10:00* Test Item Value Reference Range Interpretation Comments Mean Corpuscular Hemoglobin (test code = 785-6) 33.4 28-32 [facility] CenterAutomated erythrocyte mean corpuscular hemoglobin concentration measurement (mass/volume)2019-09-28 05:10:00* Test Item Value Reference Range Interpretation Comments Mean Corpuscular Hemoglobin Concent (test code = 786-4) 32.8 31-35 [facility] CenterRDW RjtGf-Gqs5461-98-05 05:10:00* Test Item Value Reference Range Interpretation Comments Red Cell Distribution Width (test code = 09561-4) 15.3 11.7 -14.4 [facility] CenterAutomated blood platelet count (count/volume)2019-09-28 05:10:00* Test Item Value Reference Range Interpretation Comments Platelet Count (test code = 777-3) 77 140-360 [facility] CenterAutomated blood segmented neutrophil count as percentage of total vxgoeruhfr8280-69-11 05:10:00* Test Item Value Reference Range Interpretation Comments Neutrophils (%) (Auto) (test code = 68896-0) 52.2 38.7-80.0 [facility] CenterAutomated blood lymphocyte count as percentage ot total otrbfvankn0985-81-86 05:10:00* Test Item Value Reference Range Interpretation Comments Lymphocytes (%) (Auto) (test code = 736-9) 29.3 18.0-39.1 [facility] CenterAutomated blood monocyte count as percentage of total pwjaciazsq4028-16-82 05:10:00* Test Item Value Reference Range Interpretation Comments Monocytes (%) (Auto) (test code = 5905-5) 12.2 4.4-11.3 [facility] CenterAutomated blood eosinophil count as percentage of total orgmtajhbn5543-66-47 05:10:00* Test Item Value Reference Range Interpretation Comments Eosinophils (%) (Auto) (test code = 713-8) 5.5 0.0-6.0 [facility] CenterAutomated blood basophil count as percentage of total txxmjhllbm9875-19-90 05:10:00* Test Item Value Reference Range Interpretation Comments Basophils (%) (Auto) (test code = 706-2) 0.5 0.0-1.0 [facility] CenterFluoroscopic procedure less than one hour joazafcc7858-87-07 05:10:00* Test Item Value Reference Range Interpretation Comments IM GRANULOCYTES % (test code = IM GRANULOCYTES %) 0.3 0.0- 1.0 [facility] CenterAutomated blood neutrophil count 2019-09-28 05:10:00* Test Item Value Reference Range Interpretation Comments Neutrophils # (Auto) (test code = 751-8) 3.1 2.1-6.9 [facility] CenterBlood lymphocytes count (number/volume) 2019-09-28 05:10:00* Test Item Value Reference Range Interpretation Comments Lymphocytes # (Auto) (test code = 64464-9) 1.8 1.0-3.2 [facility] CenterBll[facility] monocytes automated count (number/volume)2019-09-28 05:10:00* Test Item Value Reference Range Interpretation Comments Monocytes # (Auto) (test code = 742-7) 0.7 0.2-0.8 [facility] CenterAutomated blood eosinophil count 2019-09-28 05:10:00* Test Item Value Reference Range Interpretation Comments Eosinophils # (Auto) (test code = 711-2) 0.3 0.0-0.4 [facility] CenterAutomated blood basophil count (count/volume)2019-09-28 05:10:00* Test Item Value Reference Range Interpretation Comments Basophils # (Auto) (test code = 704-7) 0.0 0.0-0.1 [facility] CenterFluoroscopic procedure less than one hour necocwub7885-04-06 05:10:00* Test Item Value Reference Range Interpretation Comments Absolute Immature Granulocyte (auto ([place] t code = Absolute Immature Granulocyte (auto) 0.02 0-0.1 [facility]er[facility] plasma sodium measurement (moles/volume)2019-09-28 05:10:00* Test Item Value Reference Range Interpretation Comments Sodium Level (test code = 2951-2) 138 136-145 [facility]erum or plasma potassium measurement (moles/volume)2019-09-28 05:10:00* Test Item Value Reference Range Interpretation Comments Potassium Level (test code = 2823-3) 3.4 3.5-5.1 [facility]erum or plasma chloride measurement (moles/volume)2019-09-28 05:10:00* Test Item Value Reference Range Interpretation Comments Chloride Level (test code = 2075-0) 100 98-107 [facility] Hospitalerum or plasma carbon dioxide, total measurement (moles/volume)2019-09-28 05:10:00* Test Item Value Reference Range Interpretation Comments Carbon Dioxide Level (test code = 2028-9) 33 22-29 [facility] Hospitalerum or plasma anion dty7517-85-93 05:10:00* Test Item Value Reference Range Interpretation Comments Anion Gap (test code = 22827-1) 8.4 8-16 [facility]erum or plasma urea nitrogen measurement (mass/volume)2019-09-28 05:10:00* Test Item Value Reference Range Interpretation Comments Blood Urea Nitrogen (test code = 3094-0) 7 7-26 [facility] Hospitalerum or plasma creatinine measurement (mass/volume)2019-09-28 05:10:00* Test Item Value Reference Range Interpretation Comments Creatinine (test code = 2160-0) 0.90 0.57-1.11 [facility] Hospitalerum or plasma urea nitrogen/creatinine mass fbdqv4627-70-98 05:10:00* Test Item Value Reference Range Interpretation Comments BUN/Creatinine Ratio (test code = 3097-3) 8 6-25 [facility] CenterEstimated glomerular filtration rate (GFR) olagotdtxwaev8184-45-04 05:10:00* Test Item Value Reference Range Interpretation Comments Estimat Glomerular Filtration Rate (test code = 235185912) > 60 >60 Ranges were taken from the National Kidney Disease Education Program and the [facility] Kid[facility] Foundation literature.Reference ranges:60 or greater: Aglvxb59-92 ( for 3 consecutive months): Chronic kidney disease 15 or less: Kidney failureFreestone Medical CenterGlucose kpybabnfssx5785-60-06 05:10:00* Test Item Value Reference Range Interpretation Comments Glucose Level (test code = UUT7213) 310 74-118 [facility]er[facility] or plasma calcium measurement (mass/volume)2019-09-28 05:10:00* Test Item Value Reference Range Interpretation Comments Calcium Level (test code = 77819-7) 8.0 8.4-10.2 [facility]erum or plasma magnesium measurement (mass/volume)2019-09-28 05:10:00* Test Item Value Reference Range Interpretation Comments Magnesium Level (test code = 86011-3) 1.5 1.3-2.1 [facility] Hospitalerum or plasma total bilirubin measurement (mass/volume)2019-09-28 05:10:00* Test Item Value Reference Range Interpretation Comments Total Bilirubin (test code = 1975-2) 3.4 0.2-1.2 [facility] CenterFluoroscopic procedure less than one hour vuighzss5732-11-58 05:10:00* Test Item Value Reference Range Interpretation Comments Aspartate Amino Transf (AST/SGOT) (test code = Aspartate Amino Transf (AST/SGOT)) 34 5-34 [facility] Hospitalerum or plasma alanine aminotransferase measurement (enzymatic activity/volume)2019-09-28 05:10:00* Test Item Value Reference Range Interpretation Comments Alanine Aminotransferase (ALT/SGPT) (test code = 1742-6) 28 0-55 [facility] Hospitalerum or plasma protein measurement (mass/volume)2019-09-28 05:10:00* Test Item Value Reference Range Interpretation Comments Total Protein (test code = 2885-2) 5.8 6.5-8.1 [facility] Hospitalerum or plasma albumin measurement (mass/volume)2019-09-28 05:10:00* Test Item Value Reference Range Interpretation Comments Albumin (test code = 1751-7) 1.9 3.5-5.0 [facility] CenterPlasma globulin measurement (mass/volume) 2019-09-28 05:10:00* Test Item Value Reference Range Interpretation Comments Globulin (test code = 20529-8) 3.9 2.3-3.5 [facility]erum or plasma albumin/globulin mass jpoes4624-61-20 05:10:00* Test Item Value Reference Range Interpretation Comments Albumin/Globulin Ratio (test code = 1759-0) 0.5 0.8-2.0 [facility] Hospitalerum or plasma alkaline phosphatase measurement (enzymatic activity/volume)2019-09-28 05:10:00* Test Item Value Reference Range Interpretation Comments Alkaline Phosphatase (test code = 6768-6) 205 40-150 [facility] CenterBlood leukocytes automated count (number/volume)2019-09-28 05:10:00* Test Item Value Reference Range Interpretation Comments White Blood Count (test code = 6690-2) 5.97 4.8-10.8 [facility] CenterBlood erythrocytes automated count (number/volume)2019-09-28 05:10:00* Test Item Value Reference Range Interpretation Comments Red Blood Count (test code = 789-8) 3.44 3.6-5.1 [facility] CenterBlood hemoglobin measurement (moles/volume)2019-09-28 05:10:00* Test Item Value Reference Range Interpretation Comments Hemoglobin (test code = 44004-5) 11.5 12.0-16.0 [facility] CenterAutomated blood hematocrit (volume fraction)2019-09-28 05:10:00* Test Item Value Reference Range Interpretation Comments Hematocrit (test code = 4544-3) 35.1 34.2-44.1 [facility] CenterAutomated erythrocyte mean corpuscular jwbtlg9054-63-32 05:10:00* Test Item Value Reference Range Interpretation Comments Mean Corpuscular Volume (test code = 787-2) 102.0 81-99 [facility] CenterAutomated erythrocyte mean corpuscular hemoglobin (mass per erythrocyte)2019-09-28 05:10:00* Test Item Value Reference Range Interpretation Comments Mean Corpuscular Hemoglobin (test code = 785-6) 33.4 28-32 [facility] CenterAutomated erythrocyte mean corpuscular hemoglobin concentration measurement (mass/volume)2019-09-28 05:10:00* Test Item Value Reference Range Interpretation Comments Mean Corpuscular Hemoglobin Concent (test code = 786-4) 32.8 31-35 [facility] CenterRDW GifKu-Mbr3789-92-05 05:10:00* Test Item Value Reference Range Interpretation Comments Red Cell Distribution Width (test code = 43217-1) 15.3 11.7 -14.4 [facility] CenterAutomated blood platelet count (count/volume)2019-09-28 05:10:00* Test Item Value Reference Range Interpretation Comments Platelet Count (test code = 777-3) 77 140-360 [facility] CenterAutomated blood segmented neutrophil count as percentage of total scwmxquiae0974-42-79 05:10:00* Test Item Value Reference Range Interpretation Comments Neutrophils (%) (Auto) (test code = 39676-2) 52.2 38.7-80.0 [facility] lymphocyte count as percentage ot total nkvdlaxegb4594-13-01 05:10:00* Test Item Value Reference Range Interpretation Comments Lymphocytes (%) (Auto) (test code = 736-9) 29.3 18.0-39.1 [facility] CenterAutomated blood monocyte count as percentage of total acdfnxmkuk9946-86-46 05:10:00* Test Item Value Reference Range Interpretation Comments Monocytes (%) (Auto) (test code = 5905-5) 12.2 4.4-11.3 [facility] CenterAutat[facility]burged blood eosinophil count as percentage of total uefyonlsqj7873-60-29 05:10:00* Test Item Value Reference Range Interpretation Comments Eosinophils (%) (Auto) (test code = 713-8) 5.5 0.0-6.0 [facility] CenterAutomated blood basophil count as percentage of total edjnivclgb8343-08-82 05:10:00* Test Item Value Reference Range Interpretation Comments Basophils (%) (Auto) (test code = 706-2) 0.5 0.0-1.0 [facility] CenterFluoroscopic procedure less than one hour psirwsbn6432-47-12 05:10:00* Test Item Value Reference Range Interpretation Comments IM GRANULOCYTES % (test code = IM GRANULOCYTES %) 0.3 0.0- 1.0 [facility] 2019-09-28 05:10:00* Test Item Value Reference Range Interpretation Comments Neutrophils # (Auto) (test code = 751-8) 3.1 2.1-6.9 [facility] CenterBlood lymphocytes count (number/volume) 2019-09-28 05:10:00* Test Item Value Reference Range Interpretation Comments Lymphocytes # (Auto) (test code = 92593-8) 1.8 1.0-3.2 [facility] CenterBlood monocytes automated count (number/volume)2019-09-28 05:10:00* Test Item Value Reference Range Interpretation Comments Monocytes # (Auto) (test code = 742-7) 0.7 0.2-0.8 [facility] CenterAutomated blood eosinophil count 2019-09-28 05:10:00* Test Item Value Reference Range Interpretation Comments Eosinophils # (Auto) (test code = 711-2) 0.3 0.0-0.4 [facility] CenterAutomated blood basophil count (count/volume)2019-09-28 05:10:00* Test Item Value Reference Range Interpretation Comments Basophils # (Auto) (test code = 704-7) 0.0 0.0-0.1 [facility] CenterFluoroscopic procedure less than one hour chyjpbce0578-49-66 05:10:00* Test Item Value Reference Range Interpretation Comments Absolute Immature Granulocyte (auto ([place] t code = Absolute Immature Granulocyte (auto) 0.02 0-0.1 [facility]erum or plasma sodium measurement (moles/volume)2019-09-28 05:10:00* Test Item Value Reference Range Interpretation Comments Sodium Level (test code = 2951-2) 138 136-145 [facility] Hospitalerum or plasma potassium measurement (moles/volume)2019-09-28 05:10:00* Test Item Value Reference Range Interpretation Comments Potassium Level (test code = 2823-3) 3.4 3.5-5.1 [facility] Hospitalerum or plasma chloride measurement (moles/volume)2019-09-28 05:10:00* Test Item Value Reference Range Interpretation Comments Chloride Level (test code = 2075-0) 100 98-107 [facility] Hospitalerum or plasma carbon dioxide, total measurement (moles/volume)2019-09-28 05:10:00* Test Item Value Reference Range Interpretation Comments Carbon Dioxide Level (test code = 2028-9) 33 22-29 [facility] Hospitalerum or plasma anion iwm0385-20-74 05:10:00* Test Item Value Reference Range Interpretation Comments Anion Gap (test code = 09141-9) 8.4 8-16 [facility] Hospitalerum or plasma urea nitrogen measurement (mass/volume)2019-09-28 05:10:00* Test Item Value Reference Range Interpretation Comments Blood Urea Nitrogen (test code = 3094-0) 7 7-26 [facility] Hospitalerum or plasma creatinine measurement (mass/volume)2019-09-28 05:10:00* Test Item Value Reference Range Interpretation Comments Creatinine (test code = 2160-0) 0.90 0.57-1.11 [facility] Hospitalerum or plasma urea nitrogen/creatinine mass zspqw4346-13-08 05:10:00* Test Item Value Reference Range Interpretation Comments BUN/Creatinine Ratio (test code = 3097-3) 8 6-25 [facility] CenterEstimated glomerular filtration rate (GFR) wsjoltvxhpckn3195-32-67 05:10:00* Test Item Value Reference Range Interpretation Comments Estimat Glomerular Filtration Rate (test code = 625236491) > 60 >60 Ranges were taken from the National Kidney Disease Education Program and the [facility] Kidney Foundation literature.Reference ranges:60 or greater: Mtbfxr93-76 ( for 3 consecutive months): Chronic kidney disease 15 or less: Kidney failureFreestone Medical CenterGlucose acoqpmvpech1497-14-71 05:10:00* Test Item Value Reference Range Interpretation Comments Glucose Level (test code = FQI5108) 310 74-118 [facility] Hospitalerum or plasma calcium measurement (mass/volume)2019-09-28 05:10:00* Test Item Value Reference Range Interpretation Comments Calcium Level (test code = 16043-1) 8.0 8.4-10.2 [facility] Hospitalerum or plasma magnesium measurement (mass/volume)2019-09-28 05:10:00* Test Item Value Reference Range Interpretation Comments Magnesium Level (test code = 26904-2) 1.5 1.3-2.1 [facility] Hospitalerum or plasma total bilirubin measurement (mass/volume)2019-09-28 05:10:00* Test Item Value Reference Range Interpretation Comments Total Bilirubin (test code = 1975-2) 3.4 0.2-1.2 [facility] CenterFluoroscopic procedure less than one hour ckqioawx1142-64-91 05:10:00* Test Item Value Reference Range Interpretation Comments Aspartate Amino Transf (AST/SGOT) (test code = Aspartate Amino Transf (AST/SGOT)) 34 5-34 [facility] Hospitalerum or plasma alanine aminotransferase measurement (enzymatic activity/volume)2019-09-28 05:10:00* Test Item Value Reference Range Interpretation Comments Alanine Aminotransferase (ALT/SGPT) (test code = 1742-6) 28 0-55 [facility] Hospitalerum or plasma protein measurement (mass/volume)2019-09-28 05:10:00* Test Item Value Reference Range Interpretation Comments Total Protein (test code = 2885-2) 5.8 6.5-8.1 [facility] Hospitalerum or plasma albumin measurement (mass/volume)2019-09-28 05:10:00* Test Item Value Reference Range Interpretation Comments Albumin (test code = 1751-7) 1.9 3.5-5.0 [facility] CenterPlasma globulin measurement (mass/volume) 2019-09-28 05:10:00* Test Item Value Reference Range Interpretation Comments Globulin (test code = 77415-8) 3.9 2.3-3.5 [facility] Hospitalerum or plasma albumin/globulin mass ddojf3620-19-55 05:10:00* Test Item Value Reference Range Interpretation Comments Albumin/Globulin Ratio (test code = 1759-0) 0.5 0.8-2.0 [facility] Hospitalerum or plasma alkaline phosphatase measurement (enzymatic activity/volume)2019-09-28 05:10:00* Test Item Value Reference Range Interpretation Comments Alkaline Phosphatase (test code = 6768-6) 205 40-150 [facility] MGSPLCB2974-84-88 16:14:00 [place] [address] Patient Name: DEBORAH AGUERO MR #: [id number] : 1955 Age/Sex: 64/F Req #: [id number] Adm Physician: STORMY RYAN MD Ordered by: ALEX JOSEPH MD Report #: [id number] Location: MED/SURG2 Room/Bed: [facility] Procedure: [id number] US/US ABDOMEN TARI CHUN Exam Date: 09/27/19 [...] 4:15 PM Dictated By: JESSICA RAMIREZ MD 161 Transcribed By: KORI BAÑUELOS on 09/27/19 1615 COPY TO: ALEX JOSEPH MD CHEST SINGLE (PORTABLE)2019-09-27 06:36:00 [place] [address] Patient Name: DEBORAH AGUERO MR #: [id number] : 1955 Age/Sex: 64/F Req #: [id number] Adm Physician: STORMY RYAN MD Ordered by: STORMY RYAN MD Report #: [id number] Location: MED/SURG2 Room/Bed: [facility] Procedure: [id number] DX/CHEST SINGLE ( PORTABLE) Exam Date: 09/27/19 [...] STORMY RYAN MD CHEST SINGLE (PORTABLE)2019-09-26 06:20:00 [place] [address] Patient Name: DEBORAH AGUERO MR #: [id number] : 1955 Age/Sex: 64/F Req #: [id number] Adm Physician: STORMY RYAN MD Ordered by: STORMY RYAN MD Report #: [id number] Location: MED/SURG2 Room/Bed: 209-1 Procedure: [id number] DX/CHEST SINGLE ( PORTABLE) Exam Date: 09/26/19 [...] COPY TO: STORMY RYAN MD CT ABDOMEN/PELVIS [id number] 14:21:00 [place] [address] Patient Name: DEBORAH AGUERO MR #: [id number] : 1955 Age/Sex: 64/F Req #: [id number] Adm Physician: Ordered by: ADONIS MATHEW Report #: [id number] Location: ER Room/Bed: Procedure: [id number] CT/CT ABDOMEN/PEL VIS W Exam Date: 09/25/19 [...] 1430 COPY TO: ADONIS MATHEW CT CHEST [id number] 14:08:00 [place] [address] Patient Name: DEBORAH AGUERO MR #: [id number] : 1955 Age/Sex: 64/F Req #: [id number] Adm Physician: Ordered by: ADONIS MATHEW Report #: [id number] Location: ER Room/Bed: Procedure: [id number] CT/CT CHEST W Ex am Date: 09/25/19 [...] 1419 Transcri bed By: LIV on 09/25/19 1419 COPY TO: ADONIS MATHEW CHEST SINGLE (PORTABLE)2019-09-25 11:21:00 [place] [address] Patient Name: DEBORAH AGUERO MR #: [id number] : 1955 Age/Sex: 64/F Req #: [id number] Adm Physician: Ordered by: ADONIS MATHEW Report #: [id number] Location: ER Room/Bed: Procedure: [id number] DX/CHEST SINGLE ( PORTABLE) Exam Date: 09/25/19 [...] 11:28 AM Dictated By: CLIVE LOZANO MD 1128 Tr anscribed By: LIV on 09/25/19 1128 COPY TO: ADONIS MATHEW Urine color hykvdgepgsimw9354-56-33 11:17:00* Test Item Value Reference Range Interpretation Comments Urine Color (test code = 5778-6) YELLOW YELLOW [facility] CenterUrine pttkoov9956-06-28 11:17:00* Test Item Value Reference Range Interpretation Comments Urine Clarity (test code = 09963-9) CLEAR CLEAR [facility] Hospitalpecific gravity of Urine by Test strip 2019-09-25 11:17:00* Test Item Value Reference Range Interpretation Comments Urine Specific Crouse (test code = 5811-5) 1.025 1.010-1.02 5 [facility] CenterUrine pH measurement by automated test lknti1458-38-01 11:17:00* Test Item Value Reference Range Interpretation Comments Urine pH (test code = 94269-0) 6.5 5-7 [facility] CenterUrine leukocyte esterase detection by advjxkcg4400-32-72 11:17:00* Test Item Value Reference Range Interpretation Comments Urine Leukocyte Esterase (test code = 5799-2) NEGATIVE NEGATIVE [facility] CenterUrine nitrite tcpesgzku8287-02-91 11:17:00* Test Item Value Reference Range Interpretation Comments Urine Nitrite (test code = 73855-6) NEGATIVE NEGATIVE [facility] CenterUrine protein measurement by test strip (mass/volume)2019-09-25 11:17:00* Test Item Value Reference Range Interpretation Comments Urine Protein (test code = 5804-0) NEGATIVE NEGATIVE [facility] CenterUrine glucose njryayiya2457-35-37 11:17:00* Test Item Value Reference Range Interpretation Comments Urine Glucose (UA) (test code = 2349-9) 2+ NEGATIVE [facility] CenterUrine ketones detection by automated test pmdxv1463-33-76 11:17:00* Test Item Value Reference Range Interpretation Comments Urine Ketones (test code = 00840-7) NEGATIVE NEGATIVE [facility] CenterUrine urobilinogen measurement by test strip (mass/volume)2019-09-25 11:17:00* Test Item Value Reference Range Interpretation Comments Urine Urobilinogen (test code = 25023-5) 0.2 0.2-1 [facility] CenterUrine total bilirubin measurement (mass/volume)2019-09-25 11:17:00* Test Item Value Reference Range Interpretation Comments Urine Bilirubin (test code = 1978-6) NEGATIVE NEGATIVE [facility] CenterUrine erythrocytes sopbptvbq3870-71-63 11:17:00* Test Item Value Reference Range Interpretation Comments Urine Blood (test code = 38503-2) TRACE NEGATIVE [facility] CenterAutomated urine sediment leukocyte count by microscopy (number/high power field)2019-09-25 11:17:00* Test Item Value Reference Range Interpretation Comments Urine WBC (test code = 5821-4) 0-5 0-5 [facility] CenterErythrocytes detection in urine sediment by light nzzvomjsds5556-89-17 11:17:00* Test Item Value Reference Range Interpretation Comments Urine RBC (test code = 87513-2) 0-5 0-5 [facility] CenterBacteria detection in urine sediment by light lpdxhcatsd2141-72-16 11:17:00* Test Item Value Reference Range Interpretation Comments Urine Bacteria (test code = 98212-8) FEW NONE [facility] CenterEpithelial cells detection in urine sediment by light pdlwfxkemy4074-61-99 11:17:00* Test Item Value Reference Range Interpretation Comments Urine Epithelial Cells (test code = 73633-9) FEW NONE [facility] CenterUrine color xwipszebeeuyz3135-85-77 11:17:00* Test Item Value Reference Range Interpretation Comments Urine Color (test code = 5778-6) YELLOW YELLOW [facility] CenterUrine gjdxdkr8945-77-15 11:17:00* Test Item Value Reference Range Interpretation Comments Urine Clarity (test code = 94862-9) CLEAR CLEAR [facility]pecific gravity of Urine by Test strip 2019-09-25 11:17:00* Test Item Value Reference Range Interpretation Comments Urine Specific Crouse (test code = 5811-5) 1.025 1.010-1.02 5 [facility] CenterUrine pH measurement by automated test bikfl4669-12-26 11:17:00* Test Item Value Reference Range Interpretation Comments Urine pH (test code = 24867-8) 6.5 5-7 [facility] CenterUrine leukocyte esterase detection by hvjbbspv3631-92-82 11:17:00* Test Item Value Reference Range Interpretation Comments Urine Leukocyte Esterase (test code = 5799-2) NEGATIVE NEGATIVE [facility] CenterUrine nitrite vhpvyqkkv7099-69-27 11:17:00* Test Item Value Reference Range Interpretation Comments Urine Nitrite (test code = 09529-4) NEGATIVE NEGATIVE [facility] CenterUrine protein measurement by test strip (mass/volume)2019-09-25 11:17:00* Test Item Value Reference Range Interpretation Comments Urine Protein (test code = 5804-0) NEGATIVE NEGATIVE [facility] CenterUrine glucose mbwhzbtfg1026-37-77 11:17:00* Test Item Value Reference Range Interpretation Comments Urine Glucose (UA) (test code = 2349-9) 2+ NEGATIVE [facility] CenterUrine ketones detection by automated test rlsdh6591-56-93 11:17:00* Test Item Value Reference Range Interpretation Comments Urine Ketones (test code = 53940-9) NEGATIVE NEGATIVE [facility] CenterUrine urobilinogen measurement by test strip (mass/volume)2019-09-25 11:17:00* Test Item Value Reference Range Interpretation Comments Urine Urobilinogen (test code = 56019-6) 0.2 0.2-1 [facility] CenterUrine total bilirubin measurement (mass/volume)2019-09-25 11:17:00* Test Item Value Reference Range Interpretation Comments Urine Bilirubin (test code = 1978-6) NEGATIVE NEGATIVE [facility] CenterUrine erythrocytes ouxyhscty3404-82-15 11:17:00* Test Item Value Reference Range Interpretation Comments Urine Blood (test code = 91900-1) TRACE NEGATIVE [facility] CenterAutomated urine sediment leukocyte count by microscopy (number/high power field)2019-09-25 11:17:00* Test Item Value Reference Range Interpretation Comments Urine WBC (test code = 5821-4) 0-5 0-5 [facility] CenterErythrocytes detection in urine sediment by light cqpeouewmd6374-98-75 11:17:00* Test Item Value Reference Range Interpretation Comments Urine RBC (test code = 19009-6) 0-5 0-5 [facility] CenterBacteria detection in urine sediment by light dntbhwueab7832-60-57 11:17:00* Test Item Value Reference Range Interpretation Comments Urine Bacteria (test code = 10154-6) FEW NONE [facility] CenterEpithelial cells detection in urine sediment by light vuntsclgwb4488-56-72 11:17:00* Test Item Value Reference Range Interpretation Comments Urine Epithelial Cells (test code = 83671-2) FEW NONE [facility] CenterUrine color dsmeyqwikyfsc3429-66-33 11:17:00* Test Item Value Reference Range Interpretation Comments Urine Color (test code = 5778-6) YELLOW YELLOW [facility] CenterUrine jkdylbs2733-62-03 11:17:00* Test Item Value Reference Range Interpretation Comments Urine Clarity (test code = 22829-1) CLEAR CLEAR [facility]pecific gravity of Urine by Test strip 2019-09-25 11:17:00* Test Item Value Reference Range Interpretation Comments Urine Specific Crouse (test code = 5811-5) 1.025 1.010-1.02 5 [facility] CenterUrine pH measurement by automated test kqdqw7067-09-14 11:17:00* Test Item Value Reference Range Interpretation Comments Urine pH (test code = 37685-2) 6.5 5-7 [facility] CenterUrine leukocyte esterase detection by zvpubmzl2409-41-45 11:17:00* Test Item Value Reference Range Interpretation Comments Urine Leukocyte Esterase (test code = 5799-2) NEGATIVE NEGATIVE [facility] CenterUrine nitrite dbocgonig8501-41-07 11:17:00* Test Item Value Reference Range Interpretation Comments Urine Nitrite (test code = 62114-9) NEGATIVE NEGATIVE [facility] CenterUrine protein measurement by test strip (mass/volume)2019-09-25 11:17:00* Test Item Value Reference Range Interpretation Comments Urine Protein (test code = 5804-0) NEGATIVE NEGATIVE [facility] CenterUrine glucose pifsvoaqe9651-07-99 11:17:00* Test Item Value Reference Range Interpretation Comments Urine Glucose (UA) (test code = 2349-9) 2+ NEGATIVE [facility] CenterUrine ketones detection by automated test fjtpd0584-98-72 11:17:00* Test Item Value Reference Range Interpretation Comments Urine Ketones (test code = 62354-8) NEGATIVE NEGATIVE [facility] CenterUrine urobilinogen measurement by test strip (mass/volume)2019-09-25 11:17:00* Test Item Value Reference Range Interpretation Comments Urine Urobilinogen (test code = 99459-7) 0.2 0.2-1 [facility] CenterUrine total bilirubin measurement (mass/volume)2019-09-25 11:17:00* Test Item Value Reference Range Interpretation Comments Urine Bilirubin (test code = 1978-6) NEGATIVE NEGATIVE [facility] CenterUrine erythrocytes slzukfcbn9024-48-73 11:17:00* Test Item Value Reference Range Interpretation Comments Urine Blood (test code = 14927-5) TRACE NEGATIVE [facility] CenterAutomated urine sediment leukocyte count by microscopy (number/high power field)2019-09-25 11:17:00* Test Item Value Reference Range Interpretation Comments Urine WBC (test code = 5821-4) 0-5 0-5 [facility] CenterErythrocytes detection in urine sediment by light sajhmoofks5776-92-55 11:17:00* Test Item Value Reference Range Interpretation Comments Urine RBC (test code = 01021-8) 0-5 0-5 [facility] CenterBacteria detection in urine sediment by light tjnlvayjvn8610-77-45 11:17:00* Test Item Value Reference Range Interpretation Comments Urine Bacteria (test code = 58112-4) FEW NONE [facility] CenterEpithelial cells detection in urine sediment by light fvueegwnll8990-66-56 11:17:00* Test Item Value Reference Range Interpretation Comments Urine Epithelial Cells (test code = 58132-5) FEW NONE [facility] CenterUrine color zegfnvofnpexn2780-53-07 11:17:00* Test Item Value Reference Range Interpretation Comments Urine Color (test code = 5778-6) YELLOW YELLOW [facility] CenterUrine liohhcs6154-24-94 11:17:00* Test Item Value Reference Range Interpretation Comments Urine Clarity (test code = 62784-5) CLEAR CLEAR [facility] Hospitalpecific gravity of Urine by Test strip 2019-09-25 11:17:00* Test Item Value Reference Range Interpretation Comments Urine Specific Crouse (test code = 5811-5) 1.025 1.010-1.02 5 [facility] CenterUrine pH measurement by automated test lyzrl4841-18-58 11:17:00* Test Item Value Reference Range Interpretation Comments Urine pH (test code = 10616-5) 6.5 5-7 [facility] CenterUrine leukocyte esterase detection by ruwmdiwt7646-09-31 11:17:00* Test Item Value Reference Range Interpretation Comments Urine Leukocyte Esterase (test code = 5799-2) NEGATIVE NEGATIVE [facility] CenterUrine nitrite yfmjcuxja8318-90-05 11:17:00* Test Item Value Reference Range Interpretation Comments Urine Nitrite (test code = 18832-6) NEGATIVE NEGATIVE [facility] CenterUrine protein measurement by test strip (mass/volume)2019-09-25 11:17:00* Test Item Value Reference Range Interpretation Comments Urine Protein (test code = 5804-0) NEGATIVE NEGATIVE [facility] CenterUrine glucose uvroqnzck3724-10-12 11:17:00* Test Item Value Reference Range Interpretation Comments Urine Glucose (UA) (test code = 2349-9) 2+ NEGATIVE [facility] CenterUrine ketones detection by automated test vqfpv0238-46-14 11:17:00* Test Item Value Reference Range Interpretation Comments Urine Ketones (test code = 73943-6) NEGATIVE NEGATIVE [facility] CenterUrine urobilinogen measurement by test strip (mass/volume)2019-09-25 11:17:00* Test Item Value Reference Range Interpretation Comments Urine Urobilinogen (test code = 63288-8) 0.2 0.2-1 [facility] CenterUrine total bilirubin measurement (mass/volume)2019-09-25 11:17:00* Test Item Value Reference Range Interpretation Comments Urine Bilirubin (test code = 1978-6) NEGATIVE NEGATIVE [facility] CenterUrine erythrocytes jlosarugy2275-67-40 11:17:00* Test Item Value Reference Range Interpretation Comments Urine Blood (test code = 52184-7) TRACE NEGATIVE [facility] CenterAutomated urine sediment leukocyte count by microscopy (number/high power field)2019-09-25 11:17:00* Test Item Value Reference Range Interpretation Comments Urine WBC (test code = 5821-4) 0-5 0-5 [facility] CenterErythrocytes detection in urine sediment by light bnybuqchjy4201-54-08 11:17:00* Test Item Value Reference Range Interpretation Comments Urine RBC (test code = 14733-7) 0-5 0-5 [facility] CenterBacteria detection in urine sediment by light rdpaddytxd2360-02-00 11:17:00* Test Item Value Reference Range Interpretation Comments Urine Bacteria (test code = 08077-2) FEW NONE [facility] CenterEpithelial cells detection in urine sediment by light zmzuburpwm0907-53-08 11:17:00* Test Item Value Reference Range Interpretation Comments Urine Epithelial Cells (test code = 46817-3) FEW NONE [facility] CenterProthrombin time (PT) in platelet poor plasma by coagulation sbaxn2153-69-93 11:00:00* Test Item Value Reference Range Interpretation Comments Prothrombin Time (test code = 5902-2) 19.0 11.9-14.5 [facility] CenterINR in Platelet poor plasma by Coagulation cwqps9545-89-67 11:00:00* Test Item Value Reference Range Interpretation Comments Prothromb Time International Ratio (test code = 6301-6) 1.49 Oral Anticoagulant Therapy INR Values:1. Low Intensity Therapy 1.5 - 2.02 . Moderate Intensity Therapy 2.0 - 3.03. High Intensity Therapy(1) 2.5 - 3. 54. High Intensity Therapy(2) 3.0 - 4.05. Panic Value INR > 5.0 [facility] CenterBNP Ohz-fXus1036-01-02 11:00:00* Test Item Value Reference Range Interpretation Comments B-Type Natriuretic Peptide (test code = 62206-4) 281.2 0-100 [facility] Hospitalerum or plasma creatine kinase measurement (enzymatic activity/volume)2019-09-25 11:00:00* Test Item Value Reference Range Interpretation Comments Creatine Kinase (test code = 2157-6) 65 29-168 [facility] Hospitalerum or plasma creatine kinase MB measurement (mass/volume)2019-09-25 11:00:00* Test Item Value Reference Range Interpretation Comments Creatine Kinase MB (test code = 54154-1) 2.00 0-5.0 [facility] CenterTroponin I measurement by highly sensitive enzyme uwfqobxjrpi2402-53-16 11:00:00* Test Item Value Reference Range Interpretation Comments Troponin I (test code = 59574-6) < 0.001 0-0.300 [facility]erum or plasma lipase measurement (enzymatic activity/volume)2019-09-25 11:00:00* Test Item Value Reference Range Interpretation Comments Lipase (test code = 3040-3) 31 8-78 [facility] CenterProthrombin time (PT) in platelet poor plasma by coagulation iuzda9107-44-29 11:00:00* Test Item Value Reference Range Interpretation Comments Prothrombin Time (test code = 5902-2) 19.0 11.9-14.5 [facility] CenterINR in Platelet poor plasma by Coagulation dpepf8237-55-80 11:00:00* Test Item Value Reference Range Interpretation Comments Prothromb Time International Ratio (test code = 6301-6) 1.49 Oral Anticoagulant Therapy INR Values:1. Low Intensity Therapy 1.5 - 2.02 . Moderate Intensity Therapy 2.0 - 3.03. High Intensity Therapy(1) 2.5 - 3. 54. High Intensity Therapy(2) 3.0 - 4.05. Panic Value INR > 5.0 [facility] CenterBNP Smf-aSku6270-92-02 11:00:00* Test Item Value Reference Range Interpretation Comments B-Type Natriuretic Peptide (test code = 12582-1) 281.2 0-100 [facility] Hospitalerum or plasma creatine kinase measurement (enzymatic activity/volume)2019-09-25 11:00:00* Test Item Value Reference Range Interpretation Comments Creatine Kinase (test code = 2157-6) 65 29-168 [facility] Hospitalerum or plasma creatine kinase MB measurement (mass/volume)2019-09-25 11:00:00* Test Item Value Reference Range Interpretation Comments Creatine Kinase MB (test code = 04079-5) 2.00 0-5.0 [facility] CenterTroponin I measurement by highly sensitive enzyme aubivxjucag6773-17-93 11:00:00* Test Item Value Reference Range Interpretation Comments Troponin I (test code = 92100-7) < 0.001 0-0.300 [facility] Hospitalerum or plasma lipase measurement (enzymatic activity/volume)2019-09-25 11:00:00* Test Item Value Reference Range Interpretation Comments Lipase (test code = 3040-3) 31 8 [facility] CenterProthrombin time (PT) in platelet poor plasma by coagulation ecyyw8541-22-17 11:00:00* Test Item Value Reference Range Interpretation Comments Prothrombin Time (test code = 5902-2) 19.0 11.9-14.5 [facility] CenterINR in Platelet poor plasma by Coagulation oeeft8234-15-73 11:00:00* Test Item Value Reference Range Interpretation Comments Prothromb Time International Ratio (test code = 6301-6) 1.49 Oral Anticoagulant Therapy INR Values:1. Low Intensity Therapy 1.5 - 2.02 . Moderate Intensity Therapy 2.0 - 3.03. High Intensity Therapy(1) 2.5 - 3. 54. High Intensity Therapy(2) 3.0 - 4.05. Panic Value INR > 5.0 [facility] CenterBNP Utx-xRqv9948-31-02 11:00:00* Test Item Value Reference Range Interpretation Comments B-Type Natriuretic Peptide (test code = 78650-4) 281.2 0-100 [facility] Hospitalerum or plasma creatine kinase measurement (enzymatic activity/volume)2019-09-25 11:00:00* Test Item Value Reference Range Interpretation Comments Creatine Kinase (test code = 2157-6) 65 29-168 [facility] Hospitalerum or plasma creatine kinase MB measurement (mass/volume)2019-09-25 11:00:00* Test Item Value Reference Range Interpretation Comments Creatine Kinase MB (test code = 92056-7) 2.00 0-5.0 [facility] CenterTroponin I measurement by highly sensitive enzyme vkfvruxihqk9186-34-59 11:00:00* Test Item Value Reference Range Interpretation Comments Troponin I (test code = 24890-6) < 0.001 0-0.300 [facility] Hospitalerum or plasma lipase measurement (enzymatic activity/volume)2019-09-25 11:00:00* Test Item Value Reference Range Interpretation Comments Lipase (test code = 3040-3) 31 8-78 [facility] Hospitalerum or plasma creatine kinase measurement (enzymatic activity/volume)2019-09-25 11:00:00* Test Item Value Reference Range Interpretation Comments Creatine Kinase (test code = 2157-6) 65 29-168 [facility] Hospitalerum or plasma creatine kinase MB measurement (mass/volume)2019-09-25 11:00:00* Test Item Value Reference Range Interpretation Comments Creatine Kinase MB (test code = 10287-4) 2.00 0-5.0 [facility] Hospitalerum or plasma lipase measurement (enzymatic activity/volume)2019-09-25 11:00:00* Test Item Value Reference Range Interpretation Comments Lipase (test code = 3040-3) 31 [facility] CenterCHEST SINGLE (PORTABLE)2019-09-23 10:22:00 [facility] [address] [place] [address] Patient Name: DEBORAH AGEURO MR #: [id number] : 1955 Age/Sex: 64/F Req #: [id number] Adm Physician: STORMY RYAN MD Ordered by: STORMY RYAN MD Report #: [id number] Location: MED/SURG Room/Bed: [facility] Procedure: [id number] DX/CHEST SINGLE ( PORTABLE) Exam Date: 09/23/19 [...] COPY TO: STORMY RYAN MD CT ABDOMEN/PELVIS [id number] 16:28:00 [place] [address] Patient Name: DEBORAH AGUERO MR #: [id number] : 1955 Age/Sex: 64/F Req #: [id number] Adm Physician: STORMY RYAN MD Ordered by: STORMY RYAN MD Report #: [id number] Location: [facility] Room/Bed: [facility] Procedure: [id number] CT/CT ABDOMEN/PEL VIS W Exam Date: 09/22/19 [...] 4:35 PM Dictated By: JESSICA RAMIREZ MD 34 Transcribed By: LIV on 09/22/191634 COPY TO: CARL RYAN MD Serum or plasma thyrotropin measurement by detection limit <= 0.005 miu/l (units/volume)2019-09-22 05:10:00* Test Item Value Reference Range Interpretation Comments Thyroid Stimulating Hormone (TSH) (test code = 61617-2) 3.619 0.350-4.940 [facility] Hospitalerum or plasma thyrotropin measurement by detection limit <= 0.005 miu/l (units/volume)2019-09-22 05:10:00* Test Item Value Reference Range Interpretation Comments Thyroid Stimulating Hormone (TSH) (test code = 15663-8) 3.619 0.350-4.940 [facility] Hospitalerum or plasma thyrotropin measurement by detection limit <= 0.005 miu/l (units/volume)2019-09-22 05:10:00* Test Item Value Reference Range Interpretation Comments Thyroid Stimulating Hormone (TSH) (test code = 70346-0) 3.619 0.350-4.940 [facility] Hospitalerum or plasma thyrotropin measurement by detection limit <= 0.005 miu/l (units/volume)2019-09-22 05:10:00* Test Item Value Reference Range Interpretation Comments Thyroid Stimulating Hormone (TSH) (test code = 95021-2) 3.619 0.350-4.940 [facility] CenterCT ABDOMEN/PELVIS OD8181-96-03 23:54:00 [place] [address] Patient Name: DEBORAH AGUERO MR #: [id number] : 1955 Age/Sex: 64/F Req #: [id number] Adm Physician: Ordered by: RAMU PATEL MD Report #: [id number] Location: ER Room/Bed: Procedure: [id number] CT/CT ABDOMEN/PELVIS WO Exam Date: 09/20/19 Exam Ti me: 1825 REPORT STATUS: Signed E XAM: CT Abdomen and Pelvis WITHOUT contrast INDICATION: llq fabymike bañuelos ever [id number] 2324 Y COMPARISON: None. TECHNIQUE: Abdomen and [...] COPY TO: RAMU PATEL MD Bacterial urine gkgoiab5749-77-58 23:18:00* Test Item Value Reference Range Interpretation Comments Urine Culture (test code = 630-4) STAPHYLOCOCCUS AUREUS [facility] CenterBacterial urine lukbkqo3089-89-45 23:18:00* Test Item Value Reference Range Interpretation Comments Urine Culture (test code = 630-4) STAPHYLOCOCCUS AUREUS [facility] CenterBacterial urine tjoivne6716-63-21 23:18:00* Test Item Value Reference Range Interpretation Comments Urine Culture (test code = 630-4) STAPHYLOCOCCUS AUREUS [facility] CenterBacterial urine dzntwwb8994-16-98 23:18:00* Test Item Value Reference Range Interpretation Comments Urine Culture (test code = 630-4) STAPHYLOCOCCUS AUREUS [facility] CenterFluoroscopic procedure less than one hour qktieccm9218-78-30 22:40:00* Test Item Value Reference Range Interpretation Comments Lactic Acid Level (test code = Lactic Acid Level) 1.8 0.5- 2.0 [facility] CenterFluoroscopic procedure less than one hour sqwitfgu0390-19-45 22:40:00* Test Item Value Reference Range Interpretation Comments Lactic Acid Level (test code = Lactic Acid Level) 1.8 0.5- 2.0 [facility] CenterFluoroscopic procedure less than one hour sbszsczg7596-03-67 22:40:00* Test Item Value Reference Range Interpretation Comments Lactic Acid Level (test code = Lactic Acid Level) 1.8 0.5- 2.0 [facility] CenterFluoroscopic procedure less than one hour sptlspmo6881-05-27 22:40:00* Test Item Value Reference Range Interpretation Comments Lactic Acid Level (test code = Lactic Acid Level) 1.8 0.5- 2.0 [facility] CenterCHEST SINGLE (PORTABLE)2019-09-20 22:05:00 [facility] [address] [place] [address] Patient Name: DEBORAH AGUERO MR #: [id number] : 1955 Age/Sex: 64/F Req #: [id number] Adm Physician: Ordered by: RAMU PATEL MD Report #: [id number] Location: ER Room/Bed: Procedure: [id number] DX/CHEST SINGLE (PORTABLE) Exam Date: 09/20/19 Exam Time: 2139 REPORT STATUS: Signed EXAMINATION: CHEST SINGLE (PORTABLE) INDICATION: fever 2 [id number] 2139 Y COMPARISON: None FINDINGS: AP view TUBES [...] 09/20/192205 COPY TO: RAMU PATEL MD Blood ddbfqrx1265-75-18 21:42:00* Test Item Value Reference Range Interpretation Comments Blood Culture (test code = 22113833) NO GROWTH AFTER 5 DAYS, FINAL REPORT [facility] CenterBlood qmzpukj1371-98-62 21:42:00* Test Item Value Reference Range Interpretation Comments Blood Culture (test code = 16080992) NO GROWTH AFTER 5 DAYS, FINAL REPORT [facility] vabsqmf8512-79-90 21:42:00* Test Item Value Reference Range Interpretation Comments Blood Culture (test code = 58944222) NO GROWTH AFTER 5 DAYS, FINAL REPORT [facility] dkpiqdq0988-32-81 21:42:00* Test Item Value Reference Range Interpretation Comments Blood Culture (test code = 14450460) NO GROWTH AFTER 5 DAYS, FINAL REPORT [facility] CenterActivated partial thromboplastin time (aPTT) in platelet poor plasma by coagulation tgysv7991-36-54 21:25:00* Test Item Value Reference Range Interpretation Comments Activated Partial Thromboplast Time (test code = 99252-7) 35.4 23.8-35.5 [facility]2020-04-27 21:25:00* Test Item Value Reference Range Interpretation Comments Ammonia (test code = 64393-4) 117 31-123 [facility]erum or plasma amylase measurement (enzymatic activity/volume)2019-09-20 21:25:00* Test Item Value Reference Range Interpretation Comments Amylase Level (test code = 1798-8) 33 25-125 [facility] CenterActivated partial thromboplastin time (aPTT) in platelet poor plasma by coagulation briii9650-40-86 21:25:00* Test Item Value Reference Range Interpretation Comments Activated Partial Thromboplast Time (test code = 83592-1) 35.4 23.8-35.5 [facility]2020-04-27 21:25:00* Test Item Value Reference Range Interpretation Comments Ammonia (test code = 56717-4) 117 31-123 [facility] Hospitalerum or plasma amylase measurement (enzymatic activity/volume)2019-09-20 21:25:00* Test Item Value Reference Range Interpretation Comments Amylase Level (test code = 1798-8) 33 25-125 [facility] CenterActivated partial thromboplastin time (aPTT) in platelet poor plasma by coagulation toeiw2985-60-69 21:25:00* Test Item Value Reference Range Interpretation Comments Activated Partial Thromboplast Time (test code = 15696-7) 35.4 23.8-35.5 [facility] CenterAmmonia Zgm-uMbk7763-22-27 21:25:00* Test Item Value Reference Range Interpretation Comments Ammonia (test code = 36812-0) 117 31-123 [facility] Hospitalerum or plasma amylase measurement (enzymatic activity/volume)2019-09-20 21:25:00* Test Item Value Reference Range Interpretation Comments Amylase Level (test code = 1798-8) 33 25-125 [facility] CenterActivated partial thromboplastin time (aPTT) in platelet poor plasma by coagulation ylzjs7844-42-79 21:25:00* Test Item Value Reference Range Interpretation Comments Activated Partial Thromboplast Time (test code = 51851-1) 35.4 23.8-35.5 [facility] Hospitalerum or plasma amylase measurement (enzymatic activity/volume)2019-09-20 21:25:00* Test Item Value Reference Range Interpretation Comments Amylase Level (test code = 1798-8) 33 25-125 [facility] CenterBedside Arwlhqj3433-46-58 11:31:00* Test Item Value Reference Range Interpretation Comments Bedside Glucose (test code = 81211-3) 296 70-120 H Meter ID: [id number] Medical CenterNeutrophils % (Manual)2019-07-21 10:20:00* Test Item Value Reference Range Interpretation Comments Neutrophils % (Manual) (test code = 70122-7) 67 40-74 [facility] CenterLymphocytes % (Manual)2019-07-21 10:20:00 * Test Item Value Reference Range Interpretation Comments Lymphocytes % (Manual) (test code = 737-7) 20 19-48 [facility] CenterMonocytes % (Manual)2019-07-21 10:20:00* Test Item Value Reference Range Interpretation Comments Monocytes % (Manual) (test code = 744-3) 10 3.4-9.0 H [facility] CenterEosinophils % (Manual)2019-07-21 10:20:00 * Test Item Value Reference Range Interpretation Comments Eosinophils % (Manual) (test code = 714-6) 3 0-7 [facility] CenterUS [facility]BD[facility] IMRMIQA4402-49-53 09:10:00 [facility] [address] [place] [address] Patient Name: DEBORAH AGUERO MR #: [id number] : 1955 Age/Sex: 63/F Req #: [id number] Adm Physician: STORMY RYAN MD Ordered by: MARKO HOLLINS NP Report #: [id number] Location: MED/SURG3 Room/Bed: Pending sale to [facility] Procedure: [id number] US/U S ABDOMEN LIMITED Exam Date: 07/21/19 Exam Time: 082 8 REPORT STATUS: Signed EXAM: U S ABDOMEN LIMITED DATE: 07/21/2019 12:00 AM INDICATION: Ascites COMPARISON: CT abdomen/pelvis from 07/19/2019 FINDINGS: Limited sonograp hic images are obtained of the 4 quadrants for the assessment of ascites. Ther e is no ascites present. IMPRESSION: No ascites present. Amie d by: Dr. Oleksnadr Xiong MD on 07/21/2019 9:10 AM Dictated By: OLEKSANDR XIONG MD 9 Transcribed By: LIV on 07/21/19909 COPY TO: MARKO HOLLINS HONEYCOMB DECAPPER Differential Total Cells Jwxzyqn6577-60-53 09:00:00* Test Item Value Reference Range Interpretation Comments Differential Total Cells Counted (test code = Differen tial Total Cells Counted) 100 [facility] CenterPlatelet Nfdjioks3862-00-38 09:00:00* Test Item Value Reference Range Interpretation Comments Platelet Estimate (test code = 26733-8) SLIGHTLY DECREASED [facility] CenterPlatelet Morphology Xxzdmhl5802-04-35 09:00:00* Test Item Value Reference Range Interpretation Comments Platelet Morphology Comment (test code = 19404-3) NORMAL [facility] CenterAnisocytosis2020-02-26 09:00:00* Test Item Value Reference Range Interpretation Comments Anisocytosis (test code = 702-1) SLIGHT [facility] CenterMacrocytosis2020-02-26 09:00:00* Test Item Value Reference Range Interpretation Comments Macrocytosis (test code = 738-5) SLIGHT [facility] CenterRed Cell Morphology Quueaah9903-49-22 09:00:00* Test Item Value Reference Range Interpretation Comments Red Cell Morphology Comment (test code = 6742-1) NORMAL [facility] Hospitalodium Aenbu2538-22-36 06:52:00* Test Item Value Reference Range Interpretation Comments Sodium Level (test code = 2951-2) 138 136-145 [facility] CenterPotassium Tqinr5130-19-02 06:52:00* Test Item Value Reference Range Interpretation Comments Potassium Level (test code = 2823-3) 3.6 3.5-5.1 [facility] CenterChloride Zcwuv1797-62-51 06:52:00* Test Item Value Reference Range Interpretation Comments Chloride Level (test code = 2075-0) 106 98-107 [facility] CenterCarbon Dioxide Wpufw3276-90-80 06:52:00* Test Item Value Reference Range Interpretation Comments Carbon Dioxide Level (test code = 2028-9) 27 22-29 [facility] CenterAnion Gds3837-97-23 06:52:00* Test Item Value Reference Range Interpretation Comments Anion Gap (test code = 19740-0) 8.6 8-16 [facility] CenterBlood Urea Jrhivane5566-36-45 06:52:00* Test Item Value Reference Range Interpretation Comments Blood Urea Nitrogen (test code = 3094-0) 14 7-26 [facility] CenterCreatinine2020-02-26 06:52:00* Test Item Value Reference Range Interpretation Comments Creatinine (test code = 2160-0) 0.98 0.57-1.11 [facility] CenterBUN/Creatinine Kzlkg9095-63-45 06:52:00* Test Item Value Reference Range Interpretation Comments BUN/Creatinine Ratio (test code = 3097-3) 14 6-25 [facility] CenterEstimat Glomerular Filtration Rate 2019-07-21 06:52:00* Test Item Value Reference Range Interpretation Comments Estimat Glomerular Filtration Rate (test code = 810729698) 57 >60 L Ranges were taken from the National Kidney Disease Education Program and the [facility] Kidney Foundation literature.Reference ranges:60 or greater: Fsvguy30-34 ( for 3 consecutive months): Chronic kidney disease 15 or less: Kidney failureFreestone Medical CenterGlucose Modec5754-47-06 06:52:00* Test Item Value Reference Range Interpretation Comments Glucose Level (test code = XAJ0492) 210 74-118 H [facility] CenterCalcium Qhxmc5301-31-63 06:52:00* Test Item Value Reference Range Interpretation Comments Calcium Level (test code = 90457-9) 8.5 8.4-10.2 [facility] CenterTotal Dquyuerdo9851-55-04 06:52:00* Test Item Value Reference Range Interpretation Comments Total Bilirubin (test code = 1975-2) 3.4 0.2-1.2 H [facility] CenterAspartate Amino Transf (AST/SGOT) 2019-07-21 06:52:00* Test Item Value Reference Range Interpretation Comments Aspartate Amino Transf (AST/SGOT) (test code = Aspartate Amino Transf (AST/SGOT)) 32 5-34 [facility] CenterAlanine Aminotransferase (ALT/SGPT) 2019-07-21 06:52:00* Test Item Value Reference Range Interpretation Comments Alanine Aminotransferase (ALT/SGPT) (test code = 1742-6) 35 0-55 [facility] CenterTotal Cacbkaz0899-44-88 06:52:00* Test Item Value Reference Range Interpretation Comments Total Protein (test code = 2885-2) 5.5 6.5-8.1 L [facility] CenterAlbumin2020-02-26 06:52:00* Test Item Value Reference Range Interpretation Comments Albumin (test code = 1751-7) 2.1 3.5-5.0 L [facility] CenterGlobulin2020-02-26 06:52:00* Test Item Value Reference Range Interpretation Comments Globulin (test code = 38507-3) 3.4 2.3-3.5 [facility] CenterAlbumin/Globulin Losoe9725-00-24 06:52:00 * Test Item Value Reference Range Interpretation Comments Albumin/Globulin Ratio (test code = 1759-0) 0.6 0.8-2.0 L [facility] CenterAlkaline Czoiyxslhtd1944-27-42 06:52:00* Test Item Value Reference Range Interpretation Comments Alkaline Phosphatase (test code = 6768-6) 330 40-150 H [facility] CenterWhite Blood Pambk0323-53-70 06:23:00* Test Item Value Reference Range Interpretation Comments White Blood Count (test code = 6690-2) 10.25 4.8-10.8 [facility] CenterRed Blood Gsivy5667-54-65 06:23:00* Test Item Value Reference Range Interpretation Comments Red Blood Count (test code = 789-8) 3.97 3.6-5.1 [facility] CenterHemoglobin2020-02-26 06:23:00* Test Item Value Reference Range Interpretation Comments Hemoglobin (test code = 67631-1) 13.4 12.0-16.0 [facility] CenterHematocrit2020-02-26 06:23:00* Test Item Value Reference Range Interpretation Comments Hematocrit (test code = 4544-3) 40.0 34.2-44.1 [facility] CenterMean Corpuscular Mghvbn7506-29-71 06:23:00* Test Item Value Reference Range Interpretation Comments Mean Corpuscular Volume (test code = 787-2) 100.8 81-99 H [facility] CenterMean Corpuscular Hwtcbquorf0811-81-86 06:23:00* Test Item Value Reference Range Interpretation Comments Mean Corpuscular Hemoglobin (test code = 785-6) 33.8 28-32 H [facility] CenterMean Corpuscular Hemoglobin Concent 2019-07-21 06:23:00* Test Item Value Reference Range Interpretation Comments Mean Corpuscular Hemoglobin Concent (test code = 786-4) 33.5 31-35 [facility] CenterRed Cell Distribution Kzxpc8261-12-69 06:23:00* Test Item Value Reference Range Interpretation Comments Red Cell Distribution Width (test code = 16321-4) 15.8 11.7 -14.4 H [facility] CenterPlatelet Tyqhp0467-83-64 06:23:00* Test Item Value Reference Range Interpretation Comments Platelet Count (test code = 777-3) 74 140-360 L [facility] CenterNeutrophils (%) (Auto)2019-07-21 06:23:00 * Test Item Value Reference Range Interpretation Comments Neutrophils (%) (Auto) (test code = 92592-8) 61.5 38.7-80.0 [facility] CenterLymphocytes (%) (Auto)2019-07-21 06:23:00 * Test Item Value Reference Range Interpretation Comments Lymphocytes (%) (Auto) (test code = 736-9) 20.4 18.0-39.1 [facility] CenterMonocytes (%) (Auto)2019-07-21 06:23:00* Test Item Value Reference Range Interpretation Comments Monocytes (%) (Auto) (test code = 5905-5) 10.1 4.4-11.3 [facility] CenterEosinophils (%) (Auto)2019-07-21 06:23:00 * Test Item Value Reference Range Interpretation Comments Eosinophils (%) (Auto) (test code = 713-8) 4.4 0.0-6.0 [facility] CenterBasophils (%) (Auto)2019-07-21 06:23:00* Test Item Value Reference Range Interpretation Comments Basophils (%) (Auto) (test code = 706-2) 0.6 0.0-1.0 [facility] CenterIM GRANULOCYTES %2019-07-21 06:23:00* Test Item Value Reference Range Interpretation Comments IM GRANULOCYTES % (test code = IM GRANULOCYTES %) 3.0 0.0- 1.0 H [facility] CenterNeutrophils # (Auto)2019-07-21 06:23:00* Test Item Value Reference Range Interpretation Comments Neutrophils # (Auto) (test code = 751-8) 6.3 2.1-6.9 [facility] CenterLymphocytes # (Auto)2019-07-21 06:23:00* Test Item Value Reference Range Interpretation Comments Lymphocytes # (Auto) (test code = 09101-2) 2.1 1.0-3.2 [facility] CenterMonocytes # (Auto)2019-07-21 06:23:00* Test Item Value Reference Range Interpretation Comments Monocytes # (Auto) (test code = 742-7) 1.0 0.2-0.8 H [facility] CenterEosinophils # (Auto)2019-07-21 06:23:00* Test Item Value Reference Range Interpretation Comments Eosinophils # (Auto) (test code = 711-2) 0.5 0.0-0.4 H [facility] CenterBasophils # (Auto)2019-07-21 06:23:00* Test Item Value Reference Range Interpretation Comments Basophils # (Auto) (test code = 704-7) 0.1 0.0-0.1 [facility] CenterAbsolute Immature Granulocyte (auto 2019-07-21 06:23:00* Test Item Value Reference Range Interpretation Comments Absolute Immature Granulocyte (auto ([place] t code = Absolute Immature Granulocyte (auto) 0.31 0-0.1 H [facility] CenterFluoroscopic procedure less than one hour pchltdud8523-03-59 04:40:00* Test Item Value Reference Range Interpretation Comments Differential Total Cells Counted (test code = Differen tial Total Cells Counted) 100 [facility] CenterManual blood neutrophils/100 leukocytes 2019-07-21 04:40:00* Test Item Value Reference Range Interpretation Comments Neutrophils % (Manual) (test code = 25385-5) 67 40-74 [facility] Centerual [facility] lymphocytes/100 leukocytes 2019-07-21 04:40:00* Test Item Value Reference Range Interpretation Comments Lymphocytes % (Manual) (test code = 737-7) 20 19-48 [facility] blood monocytes/100 leukocytes 2019-07-21 04:40:00* Test Item Value Reference Range Interpretation Comments Monocytes % (Manual) (test code = 744-3) 10 3.4-9.0 [facility] blood eosinophil count as percentage of total ytmlpnrtuf8828-58-18 04:40:00* Test Item Value Reference Range Interpretation Comments Eosinophils % (Manual) (test code = 714-6) 3 0-7 [facility] CenterBlood platelets count by estimate (number/volume)2019-07-21 04:40:00* Test Item Value Reference Range Interpretation Comments Platelet Estimate (test code = 13354-3) SLIGHTLY DECREASED [facility] CenterPlatelet uzdfgfvkrg9064-29-10 04:40:00* Test Item Value Reference Range Interpretation Comments Platelet Morphology Comment (test code = 48324-4) NORMAL [facility] anisocytosis detection by light hhvxstsakt8714-42-09 04:40:00* Test Item Value Reference Range Interpretation Comments Anisocytosis (test code = 702-1) SLIGHT [facility] macrocytes detection by light vuwomfhuuq4402-02-28 04:40:00* Test Item Value Reference Range Interpretation Comments Macrocytosis (test code = 738-5) SLIGHT [facility]RB lvtbptwzqs7553-75-10 04:40:00* Test Item Value Reference Range Interpretation Comments Red Cell Morphology Comment (test code = 6742-1) NORMAL [facility] CenterFluoroscopic procedure less than one hour nzfojewt7641-17-42 04:40:00* Test Item Value Reference Range Interpretation Comments Differential Total Cells Counted (test code = Differen tial Total Cells Counted) 100 [facility] blood neutrophils/100 leukocytes 2019-07-21 04:40:00* Test Item Value Reference Range Interpretation Comments Neutrophils % (Manual) (test code = 06666-6) 67 40-74 [facility]100 leukocytes 2019-07-21 04:40:00* Test Item Value Reference Range Interpretation Comments Lymphocytes % (Manual) (test code = 737-7) 20 19-48 [facility] blood monocytes/100 leukocytes 2019-07-21 04:40:00* Test Item Value Reference Range Interpretation Comments Monocytes % (Manual) (test code = 744-3) 10 3.4-9.0 [facility] blood eosinophil count as percentage of total xcglnorjms5167-08-30 04:40:00* Test Item Value Reference Range Interpretation Comments Eosinophils % (Manual) (test code = 714-6) 3 0-7 [facility]Blood platelets count by estimate (number/volume)2019-07-21 04:40:00* Test Item Value Reference Range Interpretation Comments Platelet Estimate (test code = 24750-3) SLIGHTLY DECREASED [facility] CenterPlatelet ybzbuhddwu7495-28-15 04:40:00* Test Item Value Reference Range Interpretation Comments Platelet Morphology Comment (test code = 40466-3) NORMAL [facility] anisocytosis detection by light upmllifgux8046-74-62 04:40:00* Test Item Value Reference Range Interpretation Comments Anisocytosis (test code = 702-1) SLIGHT [facility] macrocytes detection by light rxkuekrqhw1777-59-74 04:40:00* Test Item Value Reference Range Interpretation Comments Macrocytosis (test code = 738-5) [facility]IGHT [facility] voeakqrozv0613-24-95 04:40:00* Test Item Value Reference Range Interpretation Comments Red Cell Morphology Comment (test code = 6742-1) NORMAL [facility] CenterFluoroscopic procedure less than one hour cesdqgtd3560-44-34 04:40:00* Test Item Value Reference Range Interpretation Comments Differential Total Cells Counted (test code = Differen tial Total Cells Counted) 100 [facility] blood neutrophils/100 leukocytes 2019-07-21 04:40:00* Test Item Value Reference Range Interpretation Comments Neutrophils % (Manual) (test code = 17129-6) 67 40-74 [facility] lymphocytes/100 leukocytes 2019-07-21 04:40:00* Test Item Value Reference Range Interpretation Comments Lymphocytes % (Manual) (test code = 737-7) 20 19-48 [facility] blood monocytes/100 leukocytes 2019-07-21 04:40:00* Test Item Value Reference Range Interpretation Comments Monocytes % (Manual) (test code = 744-3) 10 3.4-9.0 [facility] blood eosinophil count as percentage of total qjddetnrnt5153-34-84 04:40:00* Test Item Value Reference Range Interpretation Comments Eosinophils % (Manual) (test code = 714-6) 3 0-7 [facility] count by estimate (number/volume)2019-07-21 04:40:00* Test Item Value Reference Range Interpretation Comments Platelet Estimate (test code = 52833-3) SLIGHTLY DECREASED [facility] CenterPlatelet xxhsyljvof6819-09-52 04:40:00* Test Item Value Reference Range Interpretation Comments Platelet Morphology Comment (test code = 86388-4) NORMAL [facility] anisocytosis detection by light ztbtklgquq0745-60-45 04:40:00* Test Item Value Reference Range Interpretation Comments Anisocytosis (test code = 702-1) SLIGHT [facility] macrocytes detection by light xfpjblreqc4637-83-65 04:40:00* Test Item Value Reference Range Interpretation Comments Macrocytosis (test code = 738-5) SLIGHT [facility] CenterRBC vbiroqfalo7249-10-41 04:40:00* Test Item Value Reference Range Interpretation Comments Red Cell Morphology Comment (test code = 6742-1) NORMAL [facility] CenterFluoroscopic procedure less than one hour ymcvhpsl4890-48-22 04:40:00* Test Item Value Reference Range Interpretation Comments Differential Total Cells Counted (test code = Differen tial Total Cells Counted) 100 [facility] blood neutrophils/100 leukocytes 2019-07-21 04:40:00* Test Item Value Reference Range Interpretation Comments Neutrophils % (Manual) (test code = 00912-6) 67 40-74 [facility] CenterManual blood lymphocytes/100 leukocytes 2019-07-21 04:40:00* Test Item Value Reference Range Interpretation Comments Lymphocytes % (Manual) (test code = 737-7) 20 19-48 [facility] blood monocytes/100 leukocytes 2019-07-21 04:40:00* Test Item Value Reference Range Interpretation Comments Monocytes % (Manual) (test code = 744-3) 10 3.4-9.0 [facility] blood eosinophil count as percentage of total wevedbnkoj5541-31-67 04:40:00* Test Item Value Reference Range Interpretation Comments Eosinophils % (Manual) (test code = 714-6) 3 0-7 [facility] platelets count by estimate (number/volume)2019-07-21 04:40:00* Test Item Value Reference Range Interpretation Comments Platelet Estimate (test code = 49176-5) SLIGHTLY DECREASED [facility] CenterPlatelet lduebuodwf4144-60-06 04:40:00* Test Item Value Reference Range Interpretation Comments Platelet Morphology Comment (test code = 99072-6) NORMAL [facility] anisocytosis detection by light bupstgzwkp1231-84-40 04:40:00* Test Item Value Reference Range Interpretation Comments Anisocytosis (test code = 702-1) SLIGHT [facility] macrocytes detection by light yfsixxnqbb1057-35-86 04:40:00* Test Item Value Reference Range Interpretation Comments Macrocytosis (test code = 738-5) SLIGHT [facility] CenterRBC uiigdzdgug1143-10-96 04:40:00* Test Item Value Reference Range Interpretation Comments Red Cell Morphology Comment (test code = 6742-1) NORMAL [facility] CenterAmmonia2020-02-25 17:29:00* Test Item Value Reference Range Interpretation Comments Ammonia (test code = 15591-9) 159 31-123 H [facility] CenterCreatine Kinase MQ5864-62-17 07:23:00* Test Item Value Reference Range Interpretation Comments Creatine Kinase MB (test code = 47847-5) 2.00 0-5.0 [facility] CenterTroponin M3052-49-35 07:23:00* Test Item Value Reference Range Interpretation Comments Troponin I (test code = KTF3713) 0.010 0-0.300 [facility] CenterCreatine Acuvfy1300-00-27 07:01:00* Test Item Value Reference Range Interpretation Comments Creatine Kinase (test code = 2157-6) 81 29-168 [facility] CenterPhosphorus Rfrnu2224-87-45 06:44:00* Test Item Value Reference Range Interpretation Comments Phosphorus Level (test code = WUN3310) 2.3 2.3-4.7 [facility] CenterMagnesium Ijevo4949-83-71 06:44:00* Test Item Value Reference Range Interpretation Comments Magnesium Level (test code = 22161-6) 1.8 1.3-2.1 [facility] CenterCHEST SINGLE (PORTABLE)2019-07-20 05:37:00 [place] [address] Patient Name: DEBORAH AGUERO MR #: [id number] : 1955 Age/Sex: 63/F Req #: [id number] Adm Physician: STORMY RYAN MD Ordered by: ANSON TELLES NP Report #: [id number] Location: MED/SURG3 Room/Bed: Pending sale to [facility] Procedure: [id number] DX/ CHEST SINGLE (PORTABLE) Exam Date: Exam [...] LIV on 07/20/19 COPY TO: ANSON TELLES NP Phosphorus jntlglnvtnv2068-74-67 04:40:00* Test Item Value Reference Range Interpretation Comments Phosphorus Level (test code = IZR5441) 2.3 2.3-4.7 [facility] CenterPhosphorus dgpcrkiwass7983-76-27 04:40:00 * Test Item Value Reference Range Interpretation Comments Phosphorus Level (test code = YLO5743) 2.3 2.3-4.7 [facility] CenterPhosphorus bqymtqxntda1870-07-27 04:40:00 * Test Item Value Reference Range Interpretation Comments Phosphorus Level (test code = NQG1325) 2.3 2.3-4.7 [facility] CenterPhosphorus ktjpdufzyrt6660-15-16 04:40:00 * Test Item Value Reference Range Interpretation Comments Phosphorus Level (test code = EXW9720) 2.3 2.3-4.7 [facility] CenterCT ABDOMEN/PELVIS B6726-23-14 20:03:00 [place] [address] Patient Name: DEBORAH AGUERO MR #: [id number] : 1955 Age/Sex: 63/F Req #: [id number] Adm Physician: STORMY RYAN MD Ordered by: ANSON TELLES NP Report #: [id number] Location: [facility] Room/Bed: [place] [address] Procedure: [id number] CT/ CT ABDOMEN/PELVIS W Exam Date: 07/19/19 [...] COPY TO: ANSON TELLES NP B-Type Natriuretic Jmnuxwo7943-95-80 17:45:00* Test Item Value Reference Range Interpretation Comments B-Type Natriuretic Peptide (test code = 32356-2) 228.0 0-100 H [facility] SINGLE (PORTABLE)2019-07-19 17:19:00 [place] [address] Patient Name: DEBORAH AGUERO MR #: [id number] : 1955 Age/Sex: 63/F Req #: [id number] Adm Physician: Ordered by: ANSON TELLES NP Report #: [id number] Location: ER Room/Bed: Procedure: [id number] DX/C HEST SINGLE (PORTABLE) Exam Date: 07/19/19 [...] on 07/19/191719 Transcribed By: LIV on 0 0 COPY TO: ANSON TELLES NP Prothrombin Ofyt8281-17-71 17:02:00* Test Item Value Reference Range Interpretation Comments Prothrombin Time (test code = 5902-2) 21.1 11.9-14.5 H [facility] CenterProthromb Time International Ratio 2019-07-19 17:02:00* Test Item Value Reference Range Interpretation Comments Prothromb Time International Ratio (test code = 6301-6) 1.69 Oral Anticoagulant Therapy INR Values:1. Low Intensity Therapy 1.5 - 2.02 . Moderate Intensity Therapy 2.0 - 3.03. High Intensity Therapy(1) 2.5 - 3. 54. High Intensity Therapy(2) 3.0 - 4.05. Panic Value INR > 5.0 [facility] CenterActivated Partial Thromboplast Time 2019-07-19 17:02:00* Test Item Value Reference Range Interpretation Comments Activated Partial Thromboplast Time (test code = 74153-2) 30.0 23.8-35.5 [facility] CenterUrine IGP8431-70-88 16:46:00* Test Item Value Reference Range Interpretation Comments Urine WBC (test code = 5821-4) 0-5 0-5 [facility] CenterUrine YMC0812-57-96 16:46:00* Test Item Value Reference Range Interpretation Comments Urine RBC (test code = 40778-2) 0-5 0-5 [facility] CenterUrine Kaippnec9598-41-42 16:46:00* Test Item Value Reference Range Interpretation Comments Urine Bacteria (test code = 40942-2) NONE NONE [facility] CenterUrine Epithelial Kyyhj6778-05-88 16:46:00 * Test Item Value Reference Range Interpretation Comments Urine Epithelial Cells (test code = 81132-4) FEW NONE [facility] CenterUrine Transitional Epithelial Cells 2019-07-19 16:46:00* Test Item Value Reference Range Interpretation Comments Urine Transitional Epithelial Cells (test code = 8249-5) RARE NONE H [facility] CenterUrine Lrcck8414-73-03 16:35:00* Test Item Value Reference Range Interpretation Comments Urine Color (test code = 5778-6) YELLOW YELLOW [facility] CenterUrine Bzweodo8605-96-98 16:35:00* Test Item Value Reference Range Interpretation Comments Urine Clarity (test code = 08416-0) SL CLOUDY CLEAR [facility] Specific Qethypo0312-42-16 16:35:00 * Test Item Value Reference Range Interpretation Comments Urine Specific Crouse (test code = 5811-5) 1.020 1.010-1.02 5 [facility] CenterU[facility] yJ3435-19-74 16:35:00* Test Item Value Reference Range Interpretation Comments Urine pH (test code = 65885-2) 7 5-7 [facility] CenterU[facility] Leukocyte Pphgzufg4837-05-66 16:35:00* Test Item Value Reference Range Interpretation Comments Urine Leukocyte Esterase (test code = 5799-2) NEGATIVE NEGATIVE [facility] CenterUrine Bzwvdwg7781-19-84 16:35:00* Test Item Value Reference Range Interpretation Comments Urine Nitrite (test code = 72915-8) NEGATIVE NEGATIVE [facility] CenterUrine Gfkeplk1050-13-58 16:35:00* Test Item Value Reference Range Interpretation Comments Urine Protein (test code = 5804-0) NEGATIVE NEGATIVE [facility] CenterUrine Glucose (UA)2019-07-19 16:35:00* Test Item Value Reference Range Interpretation Comments Urine Glucose (UA) (test code = 2349-9) 3+ NEGATIVE H [facility] CenterUrine Adrlnek0611-61-33 16:35:00* Test Item Value Reference Range Interpretation Comments Urine Ketones (test code = 42800-5) NEGATIVE NEGATIVE [facility] CenterUrine Hyrjqqpcjbtk3537-43-72 16:35:00* Test Item Value Reference Range Interpretation Comments Urine Urobilinogen (test code = 69359-9) 1 0.2-1 [facility] CenterUrine Nyeqlzddk2907-67-25 16:35:00* Test Item Value Reference Range Interpretation Comments Urine Bilirubin (test code = 1978-6) NEGATIVE NEGATIVE [facility] CenterU[facility] Tschm1662-25-18 16:35:00* Test Item Value Reference Range Interpretation Comments Urine Blood (test code = 19879-9) TRACE NEGATIVE H [facility] CenterTransitional cells detection in urine sediment by light hqqgsafrik0403-55-62 14:13:00* Test Item Value Reference Range Interpretation Comments Urine Transitional Epithelial Cells (test code = 8249-5) RARE NONE [facility] CenterTransitional cells detection in urine sediment by light msmcrbyptj9539-21-06 14:13:00* Test Item Value Reference Range Interpretation Comments Urine Transitional Epithelial Cells (test code = 8249-5) RARE NONE [facility] CenterTransitional cells detection in urine sediment by light tqbdlfopqc8672-29-71 14:13:00* Test Item Value Reference Range Interpretation Comments Urine Transitional Epithelial Cells (test code = 8249-5) RARE NONE [facility] CenterTransitional cells detection in urine sediment by light ndfsecdjai2016-72-76 14:13:00* Test Item Value Reference Range Interpretation Comments Urine Transitional Epithelial Cells (test code = 8249-5) RARE NONE [facility] CenterBlood Nepulvk3797-94-24 12:42:00* Test Item Value Reference Range Interpretation Comments Blood Culture (test code = 80982016) NO GROWTH AFTER 5 DAYS, FINAL REPORT [facility] CenterBlood Rfxobrl4555-71-41 12:42:00* Test Item Value Reference Range Interpretation Comments Blood Culture (test code = 70828488) NO GROWTH AFTER 24 HOURS [facility] CenterPlatelet Rjtevfto0159-13-89 07:23:00* Test Item Value Reference Range Interpretation Comments Platelet Estimate (test code = 01411-7) MARKEDLY DECREASED [facility] CenterPlatelet Morphology Ctzynqj6670-86-41 07:23:00* Test Item Value Reference Range Interpretation Comments Platelet Morphology Comment (test code = 91632-3) FEW LARGE NO EDTA PLT CLUMPS SEENCHI [facility] CenterCHES SINGLE (PORTABLE)2019-07-14 07:06:00 [facility] [address] [place], [place] [address] Patient Name: DEBORAH AGUERO MR #: [id number] : 1955 Age/Sex: 63/F Req #: [id number] Adm Physician: STORMY RYAN MD Ordered by: ANSON TELLES HONEYCOMB DECAPPER Report #: [id number] Location: [facility] Room/Bed: [place] [address] Procedure: [id number] DX/ CHEST SINGLE (PORTABLE) Exam Date: 07/14/19 Exam [facility] e: 619 REPORT STATUS: Signed EX AMINATION: CHEST SINGLE (PORTABLE) COMPARISON: CT chest 07/13/2019 INDICATION: SOB [id number] DISCUSSION: Frontal view of t he [...] 7:07 AM Dictated By: AGNIESZKA SHETH MD 07 COPY TO: MYRIAM TELLES HONEYCOMB DECAPPER Sodium Apwng7653-50-98 06:41:00* Test Item Value Reference Range Interpretation Comments Sodium Level (test code = 2951-2) 139 136-145 [facility] CenterPotassium Lorsa9510-56-06 06:41:00* Test Item Value Reference Range Interpretation Comments Potassium Level (test code = 2823-3) 4.1 3.5-5.1 [facility] CenterChloride Wxbcf3504-61-24 06:41:00* Test Item Value Reference Range Interpretation Comments Chloride Level (test code = 2075-0) 107 98-107 [facility] CenterCarbon Dioxide Zasav8511-71-69 06:41:00* Test Item Value Reference Range Interpretation Comments Carbon Dioxide Level (test code = 2028-9) 26 22-29 [facility] CenterAnion Sbp0992-79-68 06:41:00* Test Item Value Reference Range Interpretation Comments Anion Gap (test code = 16128-7) 10.1 8-16 [facility] CenterBlood Urea Uitamhdh5040-54-81 06:41:00* Test Item Value Reference Range Interpretation Comments Blood Urea Nitrogen (test code = 3094-0) 15 7-26 [facility] CenterCreatinine2020-02-19 06:41:00* Test Item Value Reference Range Interpretation Comments Creatinine (test code = 2160-0) 1.07 0.57-1.11 [facility] CenterBUN/Creatinine Pfhqz3174-84-69 06:41:00* Test Item Value Reference Range Interpretation Comments BUN/Creatinine Ratio (test code = 3097-3) 14 6-25 [facility] CenterEstimat Glomerular Filtration Rate 2019-07-14 06:41:00* Test Item Value Reference Range Interpretation Comments Estimat Glomerular Filtration Rate (test code = 885817499) 51 >60 L Ranges were taken from the National Kidney Disease Education Program and the [place] [facility] Kid[facility] Foundation literature.Reference ranges:60 or greater: Hwusmz39-82 ( for 3 consecutive months): Chronic kidney disease 15 or less: Kidney failureFreestone Medical CenterGlucose Qrcjj0557-28-19 06:41:00* Test Item Value Reference Range Interpretation Comments Glucose Level (test code = MZW0434) 213 74-118 H [facility] CenterCalcium Bgcqz8074-55-39 06:41:00* Test Item Value Reference Range Interpretation Comments Calcium Level (test code = 79125-1) 8.8 8.4-10.2 [facility] CenterCreatine Nbtlvw4746-30-26 06:21:00* Test Item Value Reference Range Interpretation Comments Creatine Kinase (test code = 2157-6) 170 29-168 H [facility] CenterCreatine Kinase CQ2689-01-67 06:21:00* Test Item Value Reference Range Interpretation Comments Creatine Kinase MB (test code = 29717-0) 2.00 0-5.0 [facility] CenterTroponin Q0458-52-90 06:21:00* Test Item Value Reference Range Interpretation Comments Troponin I (test code = PUO8770) < 0.001 0-0.300 [facility] CenterWhite Blood Jjcqe4128-77-12 05:35:00* Test Item Value Reference Range Interpretation Comments White Blood Count (test code = 6690-2) 5.62 4.8-10.8 [facility] CenterRed Blood Gqoix9930-68-64 05:35:00* Test Item Value Reference Range Interpretation Comments Red Blood Count (test code = 789-8) 3.99 3.6-5.1 [facility] CenterHemoglobin2020-02-19 05:35:00* Test Item Value Reference Range Interpretation Comments Hemoglobin (test code = 87529-7) 13.3 12.0-16.0 [facility] CenterHematocrit2020-02-19 05:35:00* Test Item Value Reference Range Interpretation Comments Hematocrit (test code = 4544-3) 39.6 34.2-44.1 [facility] CenterMean Corpuscular Qvsvnd7934-85-67 05:35:00* Test Item Value Reference Range Interpretation Comments Mean Corpuscular Volume (test code = 787-2) 99.2 81-99 H [facility] CenterMean Corpuscular Pxnaltxsjs1728-10-76 05:35:00* Test Item Value Reference Range Interpretation Comments Mean Corpuscular Hemoglobin (test code = 785-6) 33.3 28-32 H [facility] CenterMean Corpuscular Hemoglobin Concent 2019-07-14 05:35:00* Test Item Value Reference Range Interpretation Comments Mean Corpuscular Hemoglobin Concent (test code = 786-4) 33.6 31-35 [facility] CenterRed Cell Distribution Dpygc9868-05-53 05:35:00* Test Item Value Reference Range Interpretation Comments Red Cell Distribution Width (test code = 28916-4) 15.2 11.7 -14.4 H [facility] CenterPlatelet Mbjar6441-16-23 05:35:00* Test Item Value Reference Range Interpretation Comments Platelet Count (test code = 777-3) 69 140-360 L [facility] CenterNeutrophils (%) (Auto)2019-07-14 05:35:00 * Test Item Value Reference Range Interpretation Comments Neutrophils (%) (Auto) (test code = 81955-7) 47.1 38.7-80.0 [facility] CenterLymphocytes (%) (Auto)2019-07-14 05:35:00 * Test Item Value Reference Range Interpretation Comments Lymphocytes (%) (Auto) (test code = 736-9) 29.0 18.0-39.1 [facility] CenterMonocytes (%) (Auto)2019-07-14 05:35:00* Test Item Value Reference Range Interpretation Comments Monocytes (%) (Auto) (test code = 5905-5) 15.1 4.4-11.3 H [facility] CenterEosinophils (%) (Auto)2019-07-14 05:35:00 * Test Item Value Reference Range Interpretation Comments Eosinophils (%) (Auto) (test code = 713-8) 7.8 0.0-6.0 H [facility] CenterBasophils (%) (Auto)2019-07-14 05:35:00* Test Item Value Reference Range Interpretation Comments Basophils (%) (Auto) (test code = 706-2) 0.5 0.0-1.0 [facility] CenterIM GRANULOCYTES %2019-07-14 05:35:00* Test Item Value Reference Range Interpretation Comments IM GRANULOCYTES % (test code = IM GRANULOCYTES %) 0.5 0.0- 1.0 [facility] CenterNeutrophils # (Auto)2019-07-14 05:35:00* Test Item Value Reference Range Interpretation Comments Neutrophils # (Auto) (test code = 751-8) 2.6 2.1-6.9 [facility] CenterLymphocytes # (Auto)2019-07-14 05:35:00* Test Item Value Reference Range Interpretation Comments Lymphocytes # (Auto) (test code = 68755-3) 1.6 1.0-3.2 [facility] CenterMonocytes # (Auto)2019-07-14 05:35:00* Test Item Value Reference Range Interpretation Comments Monocytes # (Auto) (test code = 742-7) 0.9 0.2-0.8 H [facility] CenterEosinophils # (Auto)2019-07-14 05:35:00* Test Item Value Reference Range Interpretation Comments Eosinophils # (Auto) (test code = 711-2) 0.4 0.0-0.4 [facility] CenterBasophils # (Auto)2019-07-14 05:35:00* Test Item Value Reference Range Interpretation Comments Basophils # (Auto) (test code = 704-7) 0.0 0.0-0.1 [facility] CenterAbsolute Immature Granulocyte (auto 2019-07-14 05:35:00* Test Item Value Reference Range Interpretation Comments Absolute Immature Granulocyte (auto ([place] t code = Absolute Immature Granulocyte (auto) 0.03 0-0.1 [facility] CenterBedside Oopzqul2752-55-52 22:30:00* Test Item Value Reference Range Interpretation Comments Bedside Glucose (test code = 73951-7) 326 70-120 H Meter ID: [id number] [facility] CenterUS ABDOM[facility] COMPLETE 2019-07-13 19:35:00 [facility] [address] [place] [address] Patient Name: DEBORAH AGUERO MR #: [id number] : 1955 Age/Sex: 63/F Req #: [id number] Adm Physician: STORMY RYAN MD Ordered by: MARKO HOLLINS HONEYCOMB DECAPPER Report #: [id number] Location: [facility] Room/Bed: [place] [address] Procedure: [id number] US/U S ABDOMEN COMPLETE Exam Date: 07/13/19 Exam Time: REPORT STATUS: Signed ADDENDUM #1 Addendum: Vessels: The aorta and IVC are lar shireen obscured by overlying bowel. Visualized portions unremarkable. Amie d by: Dr. Jaiden Grider M.D. on 07/22/2019 11:22 AM ORIGINAL REPORT * EXAM: US ABDOMEN COMPLETE DATE: 07/13/2019 12:00 AM IND ICATION: ascites [id number] COMPARISON: Chest CT, 07/13 FINDINGS: Grayscale [...] COPY TO: MARKO HOLLINS NP CT CHEST K7726-83-45 15:43:00 [place] [address] Patient Name: EDBORAH AGUERO MR #: [id number] : 1955 Age/Sex: 63/F Req #: [id number] Adm Physician: STORMY RYAN MD Ordered by: NIKOS KEYS DO Report #: [id number] Location: [facility] Room/Bed: [place] [address] Procedure: [id number] CT/CT CHEST W Exam Date: 07/13/19 Exam [...] 3:49 PM Dictated By: DUC RAMIREZ MD 1766 Transcribe d By: LIV on 07/13/19 7365 COPY TO: NIKOS KEYS DO Urine WQV4947-26-98 14:49:00* Test Item Value Reference Range Interpretation Comments Urine WBC (test code = 5821-4) 11-20 0-5 [facility] CenterUrine OQM5998-31-31 14:49:00* Test Item Value Reference Range Interpretation Comments Urine RBC (test code = 28069-5) 6-10 0-5 H [facility] CenterUrine Mdonvtpb2829-12-12 14:49:00* Test Item Value Reference Range Interpretation Comments Urine Bacteria (test code = 45696-9) FEW NONE [facility] CenterUrine Epithelial Bwhjg5475-99-06 14:49:00 * Test Item Value Reference Range Interpretation Comments Urine Epithelial Cells (test code = 26417-5) FEW NONE [facility] CenterUrine Hhcrm4137-61-73 14:49:00* Test Item Value Reference Range Interpretation Comments Urine Yeast (test code = 95012-1) FEW NONE [facility] CenterUrine Qqixz5151-89-40 14:49:00* Test Item Value Reference Range Interpretation Comments Urine Yeast (test code = 38092-9) FEW NONE [facility] CenterB-Type Natriuretic Huzmvvq4610-68-27 14:34:00* Test Item Value Reference Range Interpretation Comments B-Type Natriuretic Peptide (test code = 46007-5) 300.5 0-100 H [facility] CenterInfluenza Virus Types A,B Antigen 2019-07-13 14:12:00* Test Item Value Reference Range Interpretation Comments Influenza Virus Types A,B Antigen (test code = 82270-6) NEGATIVE NEGATIVE [facility] CenterInfluenza Virus Types A,B Antigen 2019-07-13 14:12:00* Test Item Value Reference Range Interpretation Comments Influenza Virus Types A,B Antigen (test code = 55727-1) NEGATIVE NEGATIVE [facility] CenterU[facility] Zlcno1000-37-77 14:06:00* Test Item Value Reference Range Interpretation Comments Urine Color (test code = 5778-6) YELLOW YELLOW [facility] Wzfcqep1512-60-55 14:06:00* Test Item Value Reference Range Interpretation Comments Urine Clarity (test code = 33350-3) SL CLOUDY CLEAR [facility] CenterUrine Specific Hejctdp8857-80-68 14:06:00 * Test Item Value Reference Range Interpretation Comments Urine Specific Crouse (test code = 5811-5) 1.020 1.010-1.02 5 [facility] CenterU[facility] dK7837-41-86 14:06:00* Test Item Value Reference Range Interpretation Comments Urine pH (test code = 89311-5) 6 5-7 [facility] CenterU[facility] Leukocyte Wecqjijc0929-96-14 14:06:00* Test Item Value Reference Range Interpretation Comments Urine Leukocyte Esterase (test code = 5799-2) NEGATIVE NEGATIVE [facility] Shwvilk8676-81-14 14:06:00* Test Item Value Reference Range Interpretation Comments Urine Nitrite (test code = 35893-2) NEGATIVE NEGATIVE [facility] CenterU[facility] Nrqfdzb9342-63-87 14:06:00* Test Item Value Reference Range Interpretation Comments Urine Protein (test code = 5804-0) NEGATIVE NEGATIVE [facility] CenterU[facility] Glucose (UA)2019-07-13 14:06:00* Test Item Value Reference Range Interpretation Comments Urine Glucose (UA) (test code = 2349-9) 3+ NEGATIVE H [facility] Yactlxb9392-47-37 14:06:00* Test Item Value Reference Range Interpretation Comments Urine Ketones (test code = 35739-0) NEGATIVE NEGATIVE [facility] Tlavjfhzxsch7071-26-86 14:06:00* Test Item Value Reference Range Interpretation Comments Urine Urobilinogen (test code = 64388-0) 8 0.2-1 [facility] Hncuntwfn7944-57-38 14:06:00* Test Item Value Reference Range Interpretation Comments Urine Bilirubin (test code = 1978-6) SMALL NEGATIVE [facility] Yiyey2597-54-07 14:06:00* Test Item Value Reference Range Interpretation Comments Urine Blood (test code = 86410-9) 1+ NEGATIVE [facility] CenterProthrombin Cpag0670-45-75 14:04:00* Test Item Value Reference Range Interpretation Comments Prothrombin Time (test code = 5902-2) 20.7 11.9-14.5 H [facility] CenterProthromb Time International Ratio 2019-07-13 14:04:00* Test Item Value Reference Range Interpretation Comments Prothromb Time International Ratio (test code = 6301-6) 1.65 Oral Anticoagulant Therapy INR Values:1. Low Intensity Therapy 1.5 - 2.02 . Moderate Intensity Therapy 2.0 - 3.03. High Intensity Therapy(1) 2.5 - 3. 54. High Intensity Therapy(2) 3.0 - 4.05. Panic Value INR > 5.0 [facility] CenterActivated Partial Thromboplast Time 2019-07-13 14:04:00* Test Item Value Reference Range Interpretation Comments Activated Partial Thromboplast Time (test code = 62134-9) 38.7 23.8-35.5 H [facility] CenterCHEST 2 ZFACS7727-11-32 14:01:00 [facility] [address] [address] Patient Name: DEBORAH AGUERO MR #: [id number] : 1955 Age/Sex: 63/F Req #: [id number] Adm Physician: Ordered by: ANSON TELLES NP Report #: [id number] Location: ER Room/Bed: Procedure: [id number] DX/C HEST 2 VIEWS Exam Date: 07/13/19 [...] 07/13/191401 COPY TO: ANSON TELLES NP Total Rnnxruyug3722-21-39 13:25:00* Test Item Value Reference Range Interpretation Comments Total Bilirubin (test code = 1975-2) 4.7 0.2-1.2 H [facility] CenterAspartate Amino Transf (AST/SGOT) 2019-07-13 13:25:00* Test Item Value Reference Range Interpretation Comments Aspartate Amino Transf (AST/SGOT) (test code = Aspartate Amino Transf (AST/SGOT)) 33 5-34 [facility] CenterAlanine Aminotransferase (ALT/SGPT) 2019-07-13 13:25:00* Test Item Value Reference Range Interpretation Comments Alanine Aminotransferase (ALT/SGPT) (test code = 1742-6) 30 0-55 [facility] CenterTotal Usthava4174-01-09 13:25:00* Test Item Value Reference Range Interpretation Comments Total Protein (test code = 2885-2) 6.3 6.5-8.1 L [facility] CenterAlbumin2020-02-18 13:25:00* Test Item Value Reference Range Interpretation Comments Albumin (test code = 1751-7) 2.3 3.5-5.0 L [facility] CenterGlobulin2020-02-18 13:25:00* Test Item Value Reference Range Interpretation Comments Globulin (test code = 65933-2) 4.0 2.3-3.5 H [facility] CenterAlbumin/Globulin Rhsxn0339-64-02 13:25:00 * Test Item Value Reference Range Interpretation Comments Albumin/Globulin Ratio (test code = 1759-0) 0.6 0.8-2.0 L [facility] CenterAlkaline Bkmoldvyjgc1830-38-59 13:25:00* Test Item Value Reference Range Interpretation Comments Alkaline Phosphatase (test code = 6768-6) 257 40-150 H [facility] CenterYeast detection in urine sediment by light uazbsspciz5385-49-79 12:09:00* Test Item Value Reference Range Interpretation Comments Urine Yeast (test code = 55511-7) FEW NONE [facility] CenterInfluenza virus A and B antigen identification by ffuwvsptigrdagtvas7101-75-34 12:09:00* Test Item Value Reference Range Interpretation Comments Influenza Virus Types A,B Antigen (test code = 68921-7) NEGATIVE NEGATIVE [facility] CenterYeast detection in urine sediment by light bnzcnlxtes5465-74-68 12:09:00* Test Item Value Reference Range Interpretation Comments Urine Yeast (test code = 28922-2) FEW NONE [facility] CenterInfluenza virus A and B antigen identification by xsyydnwqbiuyqcanlp9711-63-58 12:09:00* Test Item Value Reference Range Interpretation Comments Influenza Virus Types A,B Antigen (test code = 79883-7) NEGATIVE NEGATIVE [facility] CenterYeast detection in urine sediment by light bwltllkyxw5555-31-70 12:09:00* Test Item Value Reference Range Interpretation Comments Urine Yeast (test code = 90863-6) FEW NONE [facility] CenterInfluenza virus A and B antigen identification by pgugnqnohxpfvwaojn2774-12-60 12:09:00* Test Item Value Reference Range Interpretation Comments Influenza Virus Types A,B Antigen (test code = 87065-6) NEGATIVE NEGATIVE [facility] CenterYeast detection in urine sediment by light xxhyvafudb8229-49-90 12:09:00* Test Item Value Reference Range Interpretation Comments Urine Yeast (test code = 96575-9) FEW NONE [facility] CenterInfluenza virus A and B antigen identification by qlyloikycprfpdutjd3301-75-57 12:09:00* Test Item Value Reference Range Interpretation Comments Influenza Virus Types A,B Antigen (test code = 38489-4) NEGATIVE NEGATIVE [facility] CenterPOCT-GLUCOSE NIDNN0569-99-42 08:32:00* Test Item Value Reference Range Interpretation Comments POC-GLUCOSE METER (BEAKER) (test code = 1538) 297 mg/dL 70-110 H TESTED AT [place] [address] POCT-GLUCOSE LSKAW4375-53-36 07:52:00* Test Item Value Reference Range Interpretation Comments POC-GLUCOSE METER (BEAKER) (test code = 1538) 337 mg/dL 70-110 H TESTED AT [facility] [address] [address] POCT-GLUCOSE TFBDV1906-50-06 06:53:00* Test Item Value Reference Range Interpretation Comments POC-GLUCOSE METER (BEAKER) (test code = 1538) 356 mg/dL 70-110 H TESTED AT [facility] [address] [address] [address], CHEST, WITHOUT IMOOKWGV9559-67-52 18:32:00Referring: Dr. Andreas Rooney Reason for exam:->COUGHReason [...] Small left pleural effusion. Signed: [facility] Verified Date/Time: 0 07/27/2018 18:32:17 Reading Location: [facility] B1 C013Y CT Body Reading Room [facility] signed by: ELOY TIDWELL M.D. on 07/27/2018 06:32 PM BASIC METABOLIC JAENO4565-50-75 15:22:00* Test Item Value Reference Range Interpretation [...] Specimen moderately ictericCBC W/PLT COUNT & AUTO MSIKPRWEWNBA6077-86-87 15:10:00* Test Item Value Reference Range Interpretation [...] 2801) 0 % 0-1 RAD, CHEST, 2 YGHSX9730-68-17 15:09:00Referring: Dr. Andreas Rooney Reason for exam:->COUGHReason [...] Verified Date/Time: 07/27/2018 1 5:09:12 Reading Location: [address] Consult Reading Room ALYSIS WITHOUT DTFABNYBONI5077-93-40 14:53:00* Test Item Value Reference Range Interpretation [...] 0.2-1.0 SOURCE(BEAKER) (test code = 2795) Urine ZUV3124-70-35 15:47:00* Test Item Value Reference Range Interpretation Comments Urine WBC (test code = 5821-4) NONE 0-5 [facility] CenterUrine JZU3997-27-57 15:47:00* Test Item Value Reference Range Interpretation Comments Urine RBC (test code = 54774-1) 0-5 0-5 [facility] CenterUrine Jhzlisks8954-49-55 15:47:00* Test Item Value Reference Range Interpretation Comments Urine Bacteria (test code = 90728-5) MANY NONE H [facility] CenterUrine Epithelial Ooqpb6001-32-87 15:47:00 * Test Item Value Reference Range Interpretation Comments Urine Epithelial Cells (test code = 53029-5) FEW NONE [facility] CenterUrine Amorphous Eonrfyty5282-16-72 15:47:00* Test Item Value Reference Range Interpretation Comments Urine Amorphous Sediment (test code = 8246-1) MODERATE FEW H [facility] CenterUrine Ydlxu3524-67-15 15:39:00* Test Item Value Reference Range Interpretation Comments Urine Color (test code = 5778-6) YELLOW YELLOW [facility] CenterUrine Mymmnuz9279-06-59 15:39:00* Test Item Value Reference Range Interpretation Comments Urine Clarity (test code = 66103-5) SL CLOUDY CLEAR [facility] CenterUrine Specific Zpctyql1165-80-99 15:39:00 * Test Item Value Reference Range Interpretation Comments Urine Specific Crouse (test code = 5811-5) 1.015 1.010-1.02 5 [facility] CenterUrine iU0373-43-01 15:39:00* Test Item Value Reference Range Interpretation Comments Urine pH (test code = 60615-9) 6 5-7 [facility] CenterUrine Leukocyte Ynixvnuh6513-65-65 15:39:00* Test Item Value Reference Range Interpretation Comments Urine Leukocyte Esterase (test code = 5799-2) NEGATIVE NEGATIVE [facility] Aenngmh4577-13-54 15:39:00* Test Item Value Reference Range Interpretation Comments Urine Nitrite (test code = 87679-3) NEGATIVE NEGATIVE [facility] Sfaxhsn4462-53-48 15:39:00* Test Item Value Reference Range Interpretation Comments Urine Protein (test code = 5804-0) NEGATIVE NEGATIVE [facility] Glucose (UA)2018-07-10 15:39:00* Test Item Value Reference Range Interpretation Comments Urine Glucose (UA) (test code = 2349-9) 3+ NEGATIVE H [facility] Amtlzlh9806-87-92 15:39:00* Test Item Value Reference Range Interpretation Comments Urine Ketones (test code = 26992-8) NEGATIVE NEGATIVE [facility] Vwnocnrizllu9446-62-55 15:39:00* Test Item Value Reference Range Interpretation Comments Urine Urobilinogen (test code = 10520-6) 0.2 0.2-1 [facility] CenterUrine Jnlupsmuw1065-45-93 15:39:00* Test Item Value Reference Range Interpretation Comments Urine Bilirubin (test code = 1978-6) NEGATIVE NEGATIVE [facility] Rfyev0931-51-58 15:39:00* Test Item Value Reference Range Interpretation Comments Urine Blood (test code = 75461-5) 1+ NEGATIVE [facility] Hospitalodium Mymgp4611-88-15 15:05:00* Test Item Value Reference Range Interpretation Comments Sodium Level (test code = 2951-2) 142 136-145 [facility] CenterPotassium Obgbx3928-32-60 15:05:00* Test Item Value Reference Range Interpretation Comments Potassium Level (test code = 2823-3) 4.0 3.5-5.1 [facility] CenterChloride Vetsn1093-13-41 15:05:00* Test Item Value Reference Range Interpretation Comments Chloride Level (test code = 2075-0) 109 98-107 H [facility] CenterCarbon Dioxide Erlpq9595-21-49 15:05:00* Test Item Value Reference Range Interpretation Comments Carbon Dioxide Level (test code = 2028-9) 23 22-29 [facility] CenterAnion Nbz7088-96-02 15:05:00* Test Item Value Reference Range Interpretation Comments Anion Gap (test code = 42144-8) 14.0 8-16 [facility] CenterBlood Urea Rweihtnf3620-19-65 15:05:00* Test Item Value Reference Range Interpretation Comments Blood Urea Nitrogen (test code = 3094-0) 10 7-26 [facility] CenterCreatinine2019-02-15 15:05:00* Test Item Value Reference Range Interpretation Comments Creatinine (test code = 2160-0) 1.05 0.57-1.11 [facility] CenterBUN/Creatinine Achrt2803-23-35 15:05:00* Test Item Value Reference Range Interpretation Comments BUN/Creatinine Ratio (test code = 3097-3) 10 6-25 [facility] CenterEstimat Glomerular Filtration Rate 2018-07-10 15:05:00* Test Item Value Reference Range Interpretation Comments Estimat Glomerular Filtration Rate (test code = 686823953) 53 >60 L Ranges were taken from the National Kidney Disease Education Program and the [place] [facility] Kid[facility] Foundation literature.Reference ranges:60 or greater: Qccspq77-02 ( for 3 consecutive months): Chronic kidney disease 15 or less: Kidney failureFreestone Medical CenterGlucose Ykpuy6647-20-64 15:05:00* Test Item Value Reference Range Interpretation Comments Glucose Level (test code = JSD9085) 303 74-118 H [facility] CenterCalcium Izxwg6008-55-65 15:05:00* Test Item Value Reference Range Interpretation Comments Calcium Level (test code = 07189-6) 8.5 8.4-10.2 [facility] CenterTotal Wocxysqhw1440-50-35 15:05:00* Test Item Value Reference Range Interpretation Comments Total Bilirubin (test code = 1975-2) 3.9 0.2-1.2 H [facility] CenterAspartate Amino Transf (AST/SGOT) 2018-07-10 15:05:00* Test Item Value Reference Range Interpretation Comments Aspartate Amino Transf (AST/SGOT) (test code = Aspartate Amino Transf (AST/SGOT)) 32 5-34 [facility] CenterAlanine Aminotransferase (ALT/SGPT) 2018-07-10 15:05:00* Test Item Value Reference Range Interpretation Comments Alanine Aminotransferase (ALT/SGPT) (test code = 1742-6) 23 0-55 [facility] CenterTotal Mkcsuis6189-53-90 15:05:00* Test Item Value Reference Range Interpretation Comments Total Protein (test code = 2885-2) 6.0 6.5-8.1 L [facility] CenterAlbumin2019-02-15 15:05:00* Test Item Value Reference Range Interpretation Comments Albumin (test code = 1751-7) 2.5 3.5-5.0 L [facility] CenterGlobulin2019-02-15 15:05:00* Test Item Value Reference Range Interpretation Comments Globulin (test code = 21427-9) 3.5 2.3-3.5 [facility] CenterAlbumin/Globulin Lcihs0313-50-94 15:05:00 * Test Item Value Reference Range Interpretation Comments Albumin/Globulin Ratio (test code = 1759-0) 0.7 0.8-2.0 L [facility] CenterAlkaline Zxagxglehzs9278-22-58 15:05:00* Test Item Value Reference Range Interpretation Comments Alkaline Phosphatase (test code = 6768-6) 273 40-150 H [facility] CenterB-Type Natriuretic Nqbofed1572-36-24 15:05:00* Test Item Value Reference Range Interpretation Comments B-Type Natriuretic Peptide (test code = 98672-9) 346.9 0-100 H [facility] CenterCreatine Ymirrp2817-81-85 15:05:00* Test Item Value Reference Range Interpretation Comments Creatine Kinase (test code = 2157-6) 87 29-168 [facility] CenterCreatine Kinase TG0927-73-79 15:05:00* Test Item Value Reference Range Interpretation Comments Creatine Kinase MB (test code = 24548-6) 1.00 0-5.0 [facility] CenterTroponin G2409-43-15 15:05:00* Test Item Value Reference Range Interpretation Comments Troponin I (test code = SAR7066) 0.002 0-0.300 [facility] CenterCHEST 2 TDWIN3535-37-19 14:49:[address] [address] Patient Name: DEBORAH AGUERO MR #: [id number] : 1955 Age/Sex: 62/F Req #: [id number] Adm Physician: Ordered by: ANSON TELLES NP Report #: [id number] Location: ER Room/Bed: Procedure: [id number] DX/CORY ST 2 VIEWS Exam Date: 07/10/18 [...] 07/10/181455 COPY TO: ANSON TELLES NP Prothrombin Vijt4491-33-59 14:45:00* Test Item Value Reference Range Interpretation Comments Prothrombin Time (test code = 5902-2) 19.6 11.9-14.5 H [facility] CenterProthromb Time International Ratio 2018-07-10 14:45:00* Test Item Value Reference Range Interpretation Comments Prothromb Time International Ratio (test code = 6301-6) 1.52 Oral Anticoagulant Therapy INR Values:1. Low Intensity Therapy 1.5 - 2.02 . Moderate Intensity Therapy 2.0 - 3.03. High Intensity Therapy(1) 2.5 - 3. 54. High Intensity Therapy(2) 3.0 - 4.05. Panic Value INR > 5.0 [facility] CenterActivated Partial Thromboplast Time 2018-07-10 14:45:00* Test Item Value Reference Range Interpretation Comments Activated Partial Thromboplast Time (test code = 84724-6) 39.1 23.8-35.5 H [facility] CenterWhite Blood Wdnxr1938-18-39 12:55:00* Test Item Value Reference Range Interpretation Comments White Blood Count (test code = 6690-2) 5.92 4.8-10.8 [facility] CenterRed Blood Lvbnk9244-50-71 12:55:00* Test Item Value Reference Range Interpretation Comments Red Blood Count (test code = 789-8) 4.06 3.6-5.1 [facility] CenterHemoglobin2019-02-15 12:55:00* Test Item Value Reference Range Interpretation Comments Hemoglobin (test code = 47254-1) 12.9 12.0-16.0 [facility] CenterHematocrit2019-02-15 12:55:00* Test Item Value Reference Range Interpretation Comments Hematocrit (test code = 4544-3) 38.9 34.2-44.1 [facility] CenterMean Corpuscular Kmjamj6067-56-68 12:55:00* Test Item Value Reference Range Interpretation Comments Mean Corpuscular Volume (test code = 787-2) 95.8 81-99 [facility] CenterMean Corpuscular Ciuitefvpf8807-38-59 12:55:00* Test Item Value Reference Range Interpretation Comments Mean Corpuscular Hemoglobin (test code = 785-6) 31.8 28-32 [facility] CenterMean Corpuscular Hemoglobin Concent 2018-07-10 12:55:00* Test Item Value Reference Range Interpretation Comments Mean Corpuscular Hemoglobin Concent (test code = 786-4) 33.2 31-35 [facility] CenterRed Cell Distribution Vayqe5247-71-79 12:55:00* Test Item Value Reference Range Interpretation Comments Red Cell Distribution Width (test code = 96495-2) 17.1 11.7 -14.4 H [facility] CenterPlatelet Sokyn1274-11-45 12:55:00* Test Item Value Reference Range Interpretation Comments Platelet Count (test code = 777-3) 112 140-360 L [facility] CenterNeutrophils (%) (Auto)2018-07-10 12:55:00 * Test Item Value Reference Range Interpretation Comments Neutrophils (%) (Auto) (test code = 86276-5) 52.0 38.7-80.0 [facility] CenterLymphocytes (%) (Auto)2018-07-10 12:55:00 * Test Item Value Reference Range Interpretation Comments Lymphocytes (%) (Auto) (test code = 736-9) 25.5 18.0-39.1 [facility] CenterMonocytes (%) (Auto)2018-07-10 12:55:00* Test Item Value Reference Range Interpretation Comments Monocytes (%) (Auto) (test code = 5905-5) 14.0 4.4-11.3 H [facility] CenterEosinophils (%) (Auto)2018-07-10 12:55:00 * Test Item Value Reference Range Interpretation Comments Eosinophils (%) (Auto) (test code = 713-8) 7.6 0.0-6.0 H [facility] CenterBasophils (%) (Auto)2018-07-10 12:55:00* Test Item Value Reference Range Interpretation Comments Basophils (%) (Auto) (test code = 706-2) 0.7 0.0-1.0 [facility] CenterIM GRANULOCYTES %2018-07-10 12:55:00* Test Item Value Reference Range Interpretation Comments IM GRANULOCYTES % (test code = IM GRANULOCYTES %) 0.2 0.0- 1.0 [facility] CenterNeutrophils # (Auto)2018-07-10 12:55:00* Test Item Value Reference Range Interpretation Comments Neutrophils # (Auto) (test code = 751-8) 3.1 2.1-6.9 [facility] CenterLymphocytes # (Auto)2018-07-10 12:55:00* Test Item Value Reference Range Interpretation Comments Lymphocytes # (Auto) (test code = 62081-0) 1.5 1.0-3.2 [facility] CenterMonocytes # (Auto)2018-07-10 12:55:00* Test Item Value Reference Range Interpretation Comments Monocytes # (Auto) (test code = 742-7) 0.8 0.2-0.8 [facility] CenterEosinophils # (Auto)2018-07-10 12:55:00* Test Item Value Reference Range Interpretation Comments Eosinophils # (Auto) (test code = 711-2) 0.5 0.0-0.4 H [facility] CenterBasophils # (Auto)2018-07-10 12:55:00* Test Item Value Reference Range Interpretation Comments Basophils # (Auto) (test code = 704-7) 0.0 0.0-0.1 [facility] CenterAbsolute Immature Granulocyte (auto 2018-07-10 12:55:00* Test Item Value Reference Range Interpretation Comments Absolute Immature Granulocyte (auto ([place] t code = Absolute Immature Granulocyte (auto) 0.01 0-0.1 [facility] CenterBLOOD GAS, TLBGHTVU3984-01-84 14:16:00* Test Item Value Reference Range Interpretation [...] 1819) 21.0 % ALPHA FETOPROTEIN (AFP), TUMOR ZIWYSI3499-96-63 20:44:00* Test Item Value Reference Range Interpretation Comments ALPHA-FETOPROTEIN (BEAKER) (test code = 1094) 3.0 ng/mL <10.0 BASIC METABOLIC SPHJP3919-61-36 18:02:00* Test Item Value Reference Range Interpretation [...] FOR DIALYSIS PATIENTS. Specimen slightly ictericHEPATIC FUNCTION EESZV4051-27-40 18:02:00* Test Item Value Reference Range Interpretation [...] 6-55 Specimen slightly hemolyzed Specimen slightly ictericPROTHROMBIN TIME/QVJ8394-83-76 17:05:00* Test Item Value Reference Range Interpretation [...] mechanical heart valves.CBC W/PLT COUNT & AUTO CFPVWNAMGWSW7442-92-63 16:56:00* Test Item Value Reference Range Interpretation [...] code = 2801) 0 % 0-1 Bedside Mfixeuk5499-78-13 11:56:00* Test Item Value Reference Range Interpretation Comments Bedside Glucose (test code = 12396-5) 267 70-120 H Meter ID: [id number] Medical CenterBedside Glucose 2017-12-01 11:56:00* Test Item Value Reference Range Interpretation Comments Bedside Glucose (test code = 78200-2) 267 70-120 H Meter ID: [id number] Peter Smith Hospitalodium Level 2017-12-01 06:00:00* Test Item Value Reference Range Interpretation Comments Sodium Level (test code = 2951-2) 142 136-145 [facility] CenterPotassium Iqyrn0695-99-27 06:00:00* Test Item Value Reference Range Interpretation Comments Potassium Level (test code = 2823-3) 3.9 3.5-5.1 [facility] CenterChloride Fsona3240-49-28 06:00:00* Test Item Value Reference Range Interpretation Comments Chloride Level (test code = 2075-0) 114 98-107 H [facility] CenterCarbon Dioxide Nqrkg2737-61-32 06:00:00* Test Item Value Reference Range Interpretation Comments Carbon Dioxide Level (test code = 2028-9) 24 22-29 [facility] CenterAnion Tei8781-44-98 06:00:00* Test Item Value Reference Range Interpretation Comments Anion Gap (test code = 02827-7) 7.9 8-16 L [facility] CenterBlood Urea Iimtqpzf3089-64-96 06:00:00* Test Item Value Reference Range Interpretation Comments Blood Urea Nitrogen (test code = 3094-0) 13 7-26 [facility] CenterCreatinine2018-07-09 06:00:00* Test Item Value Reference Range Interpretation Comments Creatinine (test code = 2160-0) 1.27 0.57-1.11 H [facility] CenterBUN/Creatinine Pktdy1611-51-73 06:00:00* Test Item Value Reference Range Interpretation Comments BUN/Creatinine Ratio (test code = 3097-3) 10 6-25 [facility] CenterEstimat Glomerular Filtration Rate 2017-12-01 06:00:00* Test Item Value Reference Range Interpretation Comments Estimat Glomerular Filtration Rate (test code = 52343-2) 42 >60 L Ranges were taken from the National Kidney Disease Education Program and the [facility] Kid[facility] Foundation literature.Reference ranges:60 or greater: Gxvaub30-93 ( for 3 consecutive months): Chronic kidney disease 15 or less: Kidney failureFreestone Medical CenterGlucose Dfvie9956-23-01 06:00:00* Test Item Value Reference Range Interpretation Comments Glucose Level (test code = NHI2125) 243 74-118 H [facility] CenterCalcium Fysjq4754-27-33 06:00:00* Test Item Value Reference Range Interpretation Comments Calcium Level (test code = 49739-8) 9.4 8.4-10.2 [facility] CenterTotal Asploscwq0141-34-55 06:00:00* Test Item Value Reference Range Interpretation Comments Total Bilirubin (test code = 1975-2) 2.4 0.2-1.2 H [facility] CenterDirect Kqjldnomi3303-29-30 06:00:00* Test Item Value Reference Range Interpretation Comments Direct Bilirubin (test code = 75031-6) 0.9 0.0-0.5 H [facility] CenterAspartate Amino Transf (AST/SGOT) 2017-12-01 06:00:00* Test Item Value Reference Range Interpretation Comments Aspartate Amino Transf (AST/SGOT) (test code = Aspartate Amino Transf (AST/SGOT)) 52 5-34 H [facility] CenterAlanine Aminotransferase (ALT/SGPT) 2017-12-01 06:00:00* Test Item Value Reference Range Interpretation Comments Alanine Aminotransferase (ALT/SGPT) (test code = 1742-6) 36 0-55 [facility] CenterTotal Ewwnskv9823-74-69 06:00:00* Test Item Value Reference Range Interpretation Comments Total Protein (test code = 2885-2) 6.2 6.5-8.1 L [facility] CenterAlbumin2018-07-09 06:00:00* Test Item Value Reference Range Interpretation Comments Albumin (test code = 1751-7) 2.5 3.5-5.0 L [facility] CenterAlkaline Vznafqrwhoz6151-22-48 06:00:00* Test Item Value Reference Range Interpretation Comments Alkaline Phosphatase (test code = 6768-6) 216 40-150 H [facility] CenterDirect Uqilswfxl2040-07-60 06:00:00* Test Item Value Reference Range Interpretation Comments Direct Bilirubin (test code = 07247-8) 0.9 0.0-0.5 [facility] 05:48:00* Test Item Value Reference Range Interpretation Comments Ammonia (test code = 47748-4) 117 31-123 [facility]2018-[facility]-09 05:48:00* Test Item Value Reference Range Interpretation Comments Ammonia (test code = 20791-5) 117 31-123 [facility] CenterWhite Blood Uocqs7031-27-08 05:26:00* Test Item Value Reference Range Interpretation Comments White Blood Count (test code = 6690-2) 4.62 4.8-10.8 L [facility] CenterRed Blood Xfiwt0660-40-45 05:26:00* Test Item Value Reference Range Interpretation Comments Red Blood Count (test code = 789-8) 3.51 3.6-5.1 L [facility] CenterHemoglobin2018-07-09 05:26:00* Test Item Value Reference Range Interpretation Comments Hemoglobin (test code = 33807-4) 11.7 12.0-16.0 L [facility] CenterHematocrit2018-07-09 05:26:00* Test Item Value Reference Range Interpretation Comments Hematocrit (test code = 4544-3) 35.6 34.2-44.1 [facility] CenterMean Corpuscular Uruvod9326-25-62 05:26:00* Test Item Value Reference Range Interpretation Comments Mean Corpuscular Volume (test code = 787-2) 101.4 81-99 H [facility] CenterMean Corpuscular Xfxyklidfw2893-92-12 05:26:00* Test Item Value Reference Range Interpretation Comments Mean Corpuscular Hemoglobin (test code = 785-6) 33.3 28-32 H [facility] CenterMean Corpuscular Hemoglobin Concent 2017-12-01 05:26:00* Test Item Value Reference Range Interpretation Comments Mean Corpuscular Hemoglobin Concent (test code = 786-4) 32.9 31-35 [facility] CenterRed Cell Distribution Olknd5909-67-82 05:26:00* Test Item Value Reference Range Interpretation Comments Red Cell Distribution Width (test code = 03692-0) 14.6 11.7 -14.4 H [facility] CenterPlatelet Rhdxs6615-41-88 05:26:00* Test Item Value Reference Range Interpretation Comments Platelet Count (test code = 777-3) 65 140-360 L [facility] CenterNeutrophils (%) (Auto)2017-12-01 05:26:00 * Test Item Value Reference Range Interpretation Comments Neutrophils (%) (Auto) (test code = 15109-0) 46.0 38.7-80.0 [facility] CenterLymphocytes (%) (Auto)2017-12-01 05:26:00 * Test Item Value Reference Range Interpretation Comments Lymphocytes (%) (Auto) (test code = 736-9) 36.1 18.0-39.1 [facility] CenterMonocytes (%) (Auto)2017-12-01 05:26:00* Test Item Value Reference Range Interpretation Comments Monocytes (%) (Auto) (test code = 5905-5) 10.4 4.4-11.3 [facility] CenterEosinophils (%) (Auto)2017-12-01 05:26:00 * Test Item Value Reference Range Interpretation Comments Eosinophils (%) (Auto) (test code = 713-8) 6.9 0.0-6.0 H [facility] CenterBasophils (%) (Auto)2017-12-01 05:26:00* Test Item Value Reference Range Interpretation Comments Basophils (%) (Auto) (test code = 706-2) 0.4 0.0-1.0 [facility] CenterIM GRANULOCYTES %2017-12-01 05:26:00* Test Item Value Reference Range Interpretation Comments IM GRANULOCYTES % (test code = IM GRANULOCYTES %) 0.2 0.0- 1.0 [facility] CenterNeutrophils # (Auto)2017-12-01 05:26:00* Test Item Value Reference Range Interpretation Comments Neutrophils # (Auto) (test code = 751-8) 2.1 2.1-6.9 [facility] CenterLymphocytes # (Auto)2017-12-01 05:26:00* Test Item Value Reference Range Interpretation Comments Lymphocytes # (Auto) (test code = 05934-6) 1.7 1.0-3.2 [facility] CenterMonocytes # (Auto)2017-12-01 05:26:00* Test Item Value Reference Range Interpretation Comments Monocytes # (Auto) (test code = 742-7) 0.5 0.2-0.8 [facility] CenterEosinophils # (Auto)2017-12-01 05:26:00* Test Item Value Reference Range Interpretation Comments Eosinophils # (Auto) (test code = 711-2) 0.3 0.0-0.4 [facility] CenterBasophils # (Auto)2017-12-01 05:26:00* Test Item Value Reference Range Interpretation Comments Basophils # (Auto) (test code = 704-7) 0.0 0.0-0.1 [facility] CenterAbsolute Immature Granulocyte (auto 2017-12-01 05:26:00* Test Item Value Reference Range Interpretation Comments Absolute Immature Granulocyte (auto ([place] t code = Absolute Immature Granulocyte (auto) 0.01 0-0.1 [facility] CenterGlobulin2018-07-08 06:20:00* Test Item Value Reference Range Interpretation Comments Globulin (test code = 43221-0) 3.5 2.3-3.5 [facility] CenterAlbumin/Globulin Igprc9405-03-64 06:20:00 * Test Item Value Reference Range Interpretation Comments Albumin/Globulin Ratio (test code = 1759-0) 0.7 0.8-2.0 L [facility]PELV[facility] QG5116-72-94 19:13:00 [facility] [address] [address] Patient Name: DEBORAH AGUERO MR #: [id number] : 0 1955 Age/Sex: 62/F Req #: [id number] Adm Physician: STORMY RYAN MD Ordered by: STORMY RYAN MD Report #: [id number] Locatio n: MED/SURG2 Room/Bed: [facility] Procedure: [id number] CT/ CT ABDOMEN/PELVIS WO Exam Date: 11/29/17 [...] STORMY RYAN MD CHEST SINGLE (PORTABLE)2017-11-29 05:17:00 [address] [address] Patient Name: DEBORAH AGUERO MR #: [id number] : 0 1955 Age/Sex: 62/F Req #: [id number] Adm Physician: Ordered by: RAMU PATEL MD Report #: [id number] Location: ER Ro om/Bed: Procedure: [id number] DX/CHEST SINGLE (PORTABL E) Exam Date: 11/29/17 [...] COPY T O: RAMU PATEL MD Urine HVV7577-68-31 04:51:00* Test Item Value Reference Range Interpretation Comments Urine WBC (test code = 5821-4) NONE 0-5 [facility] CenterUrine EWF6261-48-81 04:51:00* Test Item Value Reference Range Interpretation Comments Urine RBC (test code = 14827-9) 0-5 0-5 [facility] CenterUrine Ymzkccrp4992-98-71 04:51:00* Test Item Value Reference Range Interpretation Comments Urine Bacteria (test code = 69601-3) MODERATE NONE H [facility] CenterUrine Epithelial Tzzei6191-36-95 04:51:00 * Test Item Value Reference Range Interpretation Comments Urine Epithelial Cells (test code = 43571-1) MANY NONE [facility] CenterUrine Calcium Oxalate Steiozhd5298-29-50 04:51:00* Test Item Value Reference Range Interpretation Comments Urine Calcium Oxalate Crystals (test code = 5774-5) FEW FE W [facility] CenterUrine Calcium Oxalate Uzixaqby0299-50-46 04:51:00* Test Item Value Reference Range Interpretation Comments Urine Calcium Oxalate Crystals (test code = 5774-5) FEW FE W [facility] CenterUrine Ponwk7411-77-09 04:50:00* Test Item Value Reference Range Interpretation Comments Urine Color (test code = 5778-6) YELLOW YELLOW [facility] CenterUrine Xnkkgdj3814-66-38 04:50:00* Test Item Value Reference Range Interpretation Comments Urine Clarity (test code = 79834-3) SL CLOUDY CLEAR [facility] CenterUrine Specific Fitogqd5923-99-53 04:50:00 * Test Item Value Reference Range Interpretation Comments Urine Specific Crouse (test code = 5811-5) 1.020 1.010-1.02 5 [facility] CenterUrine oG3265-44-31 04:50:00* Test Item Value Reference Range Interpretation Comments Urine pH (test code = 99892-2) 6 5-7 [facility] CenterUrine Leukocyte Jtpmlvoo8581-73-47 04:50:00* Test Item Value Reference Range Interpretation Comments Urine Leukocyte Esterase (test code = 5799-2) TRACE NEGATIVE H [facility] CenterUrine Gytmezr0278-42-21 04:50:00* Test Item Value Reference Range Interpretation Comments Urine Nitrite (test code = 84133-5) NEGATIVE NEGATIVE [facility] CenterUrine Qdvrjmb4703-73-53 04:50:00* Test Item Value Reference Range Interpretation Comments Urine Protein (test code = 5804-0) NEGATIVE NEGATIVE [facility] CenterUrine Glucose (UA)2017-11-29 04:50:00* Test Item Value Reference Range Interpretation Comments Urine Glucose (UA) (test code = 2349-9) NEGATIVE NEGATIVE [facility] CenterUrine Jcyomma6018-18-87 04:50:00* Test Item Value Reference Range Interpretation Comments Urine Ketones (test code = 07511-0) NEGATIVE NEGATIVE [facility] CenterUrine Goyfwpgbxtxw4496-39-59 04:50:00* Test Item Value Reference Range Interpretation Comments Urine Urobilinogen (test code = 04397-9) 0.2 0.2-1 [facility] CenterUrine Abvxiicte4234-12-83 04:50:00* Test Item Value Reference Range Interpretation Comments Urine Bilirubin (test code = 1978-6) 1+ NEGATIVE H [facility] CenterUrine Dfzxg8706-47-99 04:50:00* Test Item Value Reference Range Interpretation Comments Urine Blood (test code = 04502-8) NEGATIVE NEGATIVE [facility] CenterThyroid Stimulating Hormone (TSH) 2017-11-11 07:29:00* Test Item Value Reference Range Interpretation Comments Thyroid Stimulating Hormone (TSH) (test code = 27787-9) 0.386 0.350-4.940 [facility] CenterThyroid Stimulating Hormone (TSH) 2017-11-11 07:29:00* Test Item Value Reference Range Interpretation Comments Thyroid Stimulating Hormone (TSH) (test code = 64825-9) 0.386 0.350-4.940 [facility] CenterThyroid Stimulating Hormone (TSH) 2017-11-11 07:29:00* Test Item Value Reference Range Interpretation Comments Thyroid Stimulating Hormone (TSH) (test code = 69584-1) 0.386 0.350-4.940 [facility] CenterLipase2018-06-19 07:15:00* Test Item Value Reference Range Interpretation Comments Lipase (test code = 3040-3) [facility] CenterLipase2018-06-19 07:15:00* Test Item Value Reference Range Interpretation Comments Lipase (test code = 3040-3) [facility] CenterLipase2018-06-19 07:15:00* Test Item Value Reference Range Interpretation Comments Lipase (test code = 3040-3) [facility] Dbycp4944-20-77 06:35:00* Test Item Value Reference Range Interpretation Comments Sodium Level (test code = 2951-2) 142 136-145 [facility] CenterPotassium Nkuus9565-77-79 06:35:00* Test Item Value Reference Range Interpretation Comments Potassium Level (test code = 2823-3) 4.0 3.5-5.1 [facility] CenterChloride Fafbc3339-81-29 06:35:00* Test Item Value Reference Range Interpretation Comments Chloride Level (test code = 2075-0) 110 98-107 H [facility] CenterCarbon Dioxide Cljzh3134-30-34 06:35:00* Test Item Value Reference Range Interpretation Comments Carbon Dioxide Level (test code = 2028-9) 23 22- [facility] CenterAnion Bwq4052-85-01 06:35:00* Test Item Value Reference Range Interpretation Comments Anion Gap (test code = 80690-8) 13.0 8-16 [facility] CenterBlood Urea Kcevksxp3018-11-13 06:35:00* Test Item Value Reference Range Interpretation Comments Blood Urea Nitrogen (test code = 3094-0) 11 7-26 [facility] CenterCreatinine2018-06-19 06:35:00* Test Item Value Reference Range Interpretation Comments Creatinine (test code = 2160-0) 1.00 0.57-1.11 [facility] CenterBUN/Creatinine Dxhmb9339-64-70 06:35:00* Test Item Value Reference Range Interpretation Comments BUN/Creatinine Ratio (test code = 3097-3) 11 6-25 [facility] CenterEstimat Glomerular Filtration Rate 2017-11-11 06:35:00* Test Item Value Reference Range Interpretation Comments Estimat Glomerular Filtration Rate (test code = 50904-6) 56 >60 L Ranges were taken from the National Kidney Disease Education Program and the [facility] Kidney Foundation literature.Reference ranges:60 or greater: Jzxqxm52-15 ( for 3 consecutive months): Chronic kidney disease 15 or less: Kidney failureFreestone Medical CenterGlucose Abclc5835-07-32 06:35:00* Test Item Value Reference Range Interpretation Comments Glucose Level (test code = DAR2756) 169 74-118 H [facility] CenterCalcium Yslvi9241-35-86 06:35:00* Test Item Value Reference Range Interpretation Comments Calcium Level (test code = 36059-7) 9.2 8.4-10.2 [facility] CenterProthrombin Wzum8883-01-89 06:31:00* Test Item Value Reference Range Interpretation Comments Prothrombin Time (test code = 5902-2) 19.5 11.9-14.5 H [facility] CenterProthromb Time International Ratio 2017-11-11 06:31:00* Test Item Value Reference Range Interpretation Comments Prothromb Time International Ratio (test code = 6301-6) 1.79 Oral Anticoagulant Therapy INR Values:1. Low Intensity Therapy 1.5 - 2.02 . Moderate Intensity Therapy 2.0 - 3.03. High Intensity Therapy(1) 2.5 - 3. 54. High Intensity Therapy(2) 3.0 - 4.05. Panic Value INR > 5.0 [facility] CenterProthrombin Tcyi8415-53-05 06:31:00* Test Item Value Reference Range Interpretation Comments Prothrombin Time (test code = 5902-2) 19.5 11.9-14.5 H [facility] CenterProthromb Time International Ratio 2017-11-11 06:31:00* Test Item Value Reference Range Interpretation Comments Prothromb Time International Ratio (test code = 6301-6) 1.79 Oral Anticoagulant Therapy INR Values:1. Low Intensity Therapy 1.5 - 2.02 . Moderate Intensity Therapy 2.0 - 3.03. High Intensity Therapy(1) 2.5 - 3. 54. High Intensity Therapy(2) 3.0 - 4.05. Panic Value INR > 5.0 [facility] CenterAmmonia2018-06-19 06:30:00* Test Item Value Reference Range Interpretation Comments Ammonia (test code = 12539-5) 182 31-123 H [facility] CenterWhite Blood Ibust0357-23-56 06:11:00* Test Item Value Reference Range Interpretation Comments White Blood Count (test code = 6690-2) 4.91 4.8-10.8 [facility] CenterRed Blood Clbtr1574-24-24 06:11:00* Test Item Value Reference Range Interpretation Comments Red Blood Count (test code = 789-8) 3.81 3.6-5.1 [facility] CenterHemoglobin2018-06-19 06:11:00* Test Item Value Reference Range Interpretation Comments Hemoglobin (test code = 95036-1) 12.8 12.0-16.0 [facility] CenterHematocrit2018-06-19 06:11:00* Test Item Value Reference Range Interpretation Comments Hematocrit (test code = 4544-3) 38.1 34.2-44.1 [facility] CenterMean Corpuscular Ahlpmo6539-98-30 06:11:00* Test Item Value Reference Range Interpretation Comments Mean Corpuscular Volume (test code = 787-2) 100.0 81-99 H [facility] CenterMean Corpuscular Pcoucseynb7217-03-02 06:11:00* Test Item Value Reference Range Interpretation Comments Mean Corpuscular Hemoglobin (test code = 785-6) 33.6 28-32 H [facility] CenterMean Corpuscular Hemoglobin Concent 2017-11-11 06:11:00* Test Item Value Reference Range Interpretation Comments Mean Corpuscular Hemoglobin Concent (test code = 786-4) 33.6 31-35 [facility] CenterRed Cell Distribution Vjamh9379-00-15 06:11:00* Test Item Value Reference Range Interpretation Comments Red Cell Distribution Width (test code = 17052-6) 15.3 11.7 -14.4 H [facility] CenterPlatelet Vsjcp9672-34-83 06:11:00* Test Item Value Reference Range Interpretation Comments Platelet Count (test code = 777-3) 71 140-360 L [facility] CenterNeutrophils (%) (Auto)2017-11-11 06:11:00 * Test Item Value Reference Range Interpretation Comments Neutrophils (%) (Auto) (test code = 92356-6) 64.0 38.7-80.0 [facility] CenterLymphocytes (%) (Auto)2017-11-11 06:11:00 * Test Item Value Reference Range Interpretation Comments Lymphocytes (%) (Auto) (test code = 736-9) 24.8 18.0-39.1 [facility] CenterMonocytes (%) (Auto)2017-11-11 06:11:00* Test Item Value Reference Range Interpretation Comments Monocytes (%) (Auto) (test code = 5905-5) 6.9 4.4-11.3 [facility] CenterEosinophils (%) (Auto)2017-11-11 06:11:00 * Test Item Value Reference Range Interpretation Comments Eosinophils (%) (Auto) (test code = 713-8) 3.5 0.0-6.0 [facility] CenterBasophils (%) (Auto)2017-11-11 06:11:00* Test Item Value Reference Range Interpretation Comments Basophils (%) (Auto) (test code = 706-2) 0.4 0.0-1.0 [facility] CenterIM GRANULOCYTES %2017-11-11 06:11:00* Test Item Value Reference Range Interpretation Comments IM GRANULOCYTES % (test code = IM GRANULOCYTES %) 0.4 0.0- 1.0 [facility] CenterNeutrophils # (Auto)2017-11-11 06:11:00* Test Item Value Reference Range Interpretation Comments Neutrophils # (Auto) (test code = 751-8) 3.1 2.1-6.9 [facility] CenterLymphocytes # (Auto)2017-11-11 06:11:00* Test Item Value Reference Range Interpretation Comments Lymphocytes # (Auto) (test code = 79957-2) 1.2 1.0-3.2 [facility] CenterMonocytes # (Auto)2017-11-11 06:11:00* Test Item Value Reference Range Interpretation Comments Monocytes # (Auto) (test code = 742-7) 0.3 0.2-0.8 [facility] CenterEosinophils # (Auto)2017-11-11 06:11:00* Test Item Value Reference Range Interpretation Comments Eosinophils # (Auto) (test code = 711-2) 0.2 0.0-0.4 [facility] CenterBasophils # (Auto)2017-11-11 06:11:00* Test Item Value Reference Range Interpretation Comments Basophils # (Auto) (test code = 704-7) 0.0 0.0-0.1 [facility] CenterAbsolute Immature Granulocyte (auto 2017-11-11 06:11:00* Test Item Value Reference Range Interpretation Comments Absolute Immature Granulocyte (auto ([place] t code = Absolute Immature Granulocyte (auto) 0.02 0-0.1 [facility] CenterBedside Hmgiwvb5318-34-23 20:08:00* Test Item Value Reference Range Interpretation Comments Bedside Glucose (test code = 06898-5) 262 70-120 H Meter ID: [id number] Medical CenterTotal Bilirubin 2017-11-10 11:59:00* Test Item Value Reference Range Interpretation Comments Total Bilirubin (test code = 1975-2) 2.5 0.2-1.2 H [facility] CenterAspartate Amino Transf (AST/SGOT) 2017-11-10 11:59:00* Test Item Value Reference Range Interpretation Comments Aspartate Amino Transf (AST/SGOT) (test code = Aspartate Amino Transf (AST/SGOT)) 46 5-34 H [facility] CenterAlanine Aminotransferase (ALT/SGPT) 2017-11-10 11:59:00* Test Item Value Reference Range Interpretation Comments Alanine Aminotransferase (ALT/SGPT) (test code = 1742-6) 28 0-55 [facility] CenterTotal Flmefyj4200-61-86 11:59:00* Test Item Value Reference Range Interpretation Comments Total Protein (test code = 2885-2) 6.6 6.5-8.1 [facility] CenterAlbumin2018-06-18 11:59:00* Test Item Value Reference Range Interpretation Comments Albumin (test code = 1751-7) 2.5 3.5-5.0 L [facility] CenterGlobulin2018-06-18 11:59:00* Test Item Value Reference Range Interpretation Comments Globulin (test code = 57108-8) 4.1 2.3-3.5 H [facility] CenterAlbumin/Globulin Rqkgh7848-67-92 11:59:00 * Test Item Value Reference Range Interpretation Comments Albumin/Globulin Ratio (test code = 1759-0) 0.6 0.8-2.0 L [facility] CenterAlkaline Krwsfaqempt0550-86-98 11:59:00* Test Item Value Reference Range Interpretation Comments Alkaline Phosphatase (test code = 6768-6) 223 40-150 H [facility] CenterCreatine Qxjkjo0514-11-72 11:59:00* Test Item Value Reference Range Interpretation Comments Creatine Kinase (test code = 2157-6) 84 29-168 [facility] CenterCreatine Kinase ZK6934-61-40 11:59:00* Test Item Value Reference Range Interpretation Comments Creatine Kinase MB (test code = 70530-7) 1.70 0-5.0 [facility] CenterTroponin Q6682-08-08 11:59:00* Test Item Value Reference Range Interpretation Comments Troponin I (test code = NWO6136) 0.079 0-0.300 [facility] CenterCreatine Iybhjx1843-79-29 11:59:00* Test Item Value Reference Range Interpretation Comments Creatine Kinase (test code = 2157-6) 84 29-168 [facility] CenterCreatine Kinase AO9736-97-91 11:59:00* Test Item Value Reference Range Interpretation Comments Creatine Kinase MB (test code = 99194-1) 1.70 0-5.0 [facility] CenterTroponin U5815-92-57 11:59:00* Test Item Value Reference Range Interpretation Comments Troponin I (test code = AHQ3651) 0.079 0-0.300 [facility] CenterCHEST SINGLE (PORTABLE)2017-11-10 11:47:00 [facility] [address] [place] [address] Patient Name: DEBORAH AGUERO MR #: [id number] : 1955 Age/Sex: 62/F Req #: [id number] Adm Physician: Ordered by: JAIDEN VARNER MD Report #: [id number] Location: ER Room/Bed: Procedure: [id number] DX/CHEST SINGLE (PORTABLE) E xam Date: 11/10/17 Exam Time: 1110 REPORT STATU S: Signed PROCEDURE: A single AP view of the chest. COMPARISON: [facility], DX, CHEST SINGLE (PORTABLE), 01/10/2017, 12:33. GILL [...] COPY TO: LÁZARO VARNER RD, MD Urine LCB3215-30-20 11:45:00* Test Item Value Reference Range Interpretation Comments Urine WBC (test code = 5821-4) 0-5 0-5 [facility] CenterUrine HAA2522-20-56 11:45:00* Test Item Value Reference Range Interpretation Comments Urine RBC (test code = 18692-5) NONE 0-5 [facility] CenterUrine Vgrykgwq0827-61-76 11:45:00* Test Item Value Reference Range Interpretation Comments Urine Bacteria (test code = 84015-8) RARE NONE [facility] CenterUrine Epithelial Wehoy8143-28-56 11:45:00 * Test Item Value Reference Range Interpretation Comments Urine Epithelial Cells (test code = 88399-1) MODERATE NONE [facility] CenterUrine Hrwtd3737-24-39 11:35:00* Test Item Value Reference Range Interpretation Comments Urine Color (test code = 5778-6) YELLOW YELLOW [facility] CenterUrine Qojpwyl1561-43-72 11:35:00* Test Item Value Reference Range Interpretation Comments Urine Clarity (test code = 70531-9) CLEAR CLEAR [facility] CenterUrine Specific Tpfmrks1229-70-81 11:35:00 * Test Item Value Reference Range Interpretation Comments Urine Specific Crouse (test code = 5811-5) 1.025 1.010-1.02 5 [facility] CenterUrine xX3938-52-37 11:35:00* Test Item Value Reference Range Interpretation Comments Urine pH (test code = 83774-7) 6 5-7 [facility] CenterUrine Leukocyte Mltxgphx6938-45-20 11:35:00* Test Item Value Reference Range Interpretation Comments Urine Leukocyte Esterase (test code = 5799-2) NEGATIVE NEGATIVE [facility] CenterUrine Dpqtjwn5632-59-29 11:35:00* Test Item Value Reference Range Interpretation Comments Urine Nitrite (test code = 10641-7) NEGATIVE NEGATIVE [facility] CenterUrine Asmokdm8524-10-17 11:35:00* Test Item Value Reference Range Interpretation Comments Urine Protein (test code = 5804-0) NEGATIVE NEGATIVE [facility] CenterUrine Glucose (UA)2017-11-10 11:35:00* Test Item Value Reference Range Interpretation Comments Urine Glucose (UA) (test code = 2349-9) 2+ NEGATIVE H [facility] CenterUrine Nbhqjba6080-27-75 11:35:00* Test Item Value Reference Range Interpretation Comments Urine Ketones (test code = 40794-7) NEGATIVE NEGATIVE [facility] CenterUrine Ydtrqvscinef0449-59-46 11:35:00* Test Item Value Reference Range Interpretation Comments Urine Urobilinogen (test code = 10198-9) 0.2 0.2-1 [facility] CenterUrine Vqvkeixkb3679-04-71 11:35:00* Test Item Value Reference Range Interpretation Comments Urine Bilirubin (test code = 1978-6) NEGATIVE NEGATIVE [facility] CenterUrine Scqxh2271-41-63 11:35:00* Test Item Value Reference Range Interpretation Comments Urine Blood (test code = 97033-9) TRACE NEGATIVE H [facility] CenterALPHA FETOPROTEIN (AFP), TUMOR MARKER 2017-09-15 12:53:00* Test Item Value Reference Range Interpretation Comments ALPHA-FETOPROTEIN (BEAKER) (test code = 1094) 3.2 ng/mL <10.0 BASIC METABOLIC [id number] 12:28:00* Test Item Value Reference Range Interpretation [...] FOR DIALYSIS PATIENTS. Specimen slightly ictericHEPATIC FUNCTION [id number] 12:28:00* Test Item Value Reference Range Interpretation [...] 347) 20 U/L 6-55 Specimen slightly ictericPROTHROMBIN TIME/[id number] 12:24:00* Test Item Value Reference Range Interpretation [...] mechanical heart valves.CBC W/PLT COUNT & AUTO [id number] 12:19:00* Test Item Value Reference Range Interpretation [...] code = 2801) 0 % 0-1 POCT-GLUCOSE OQHZI1073-26-64 13:08:00* Test Item Value Reference Range Interpretation Comments POC-GLUCOSE METER (BEAKER) (test code = 1538) 111 mg/dL 70-110 H TESTED AT [facility] [address] [address] POCT-GLUCOSE [id number] 09:42:00* Test Item Value Reference Range Interpretation Comments POC-GLUCOSE METER (BEAKER) (test code = 1538) 128 mg/dL 70-110 H TESTED AT [facility] [address] [address] Blood Mwfnzbm3953-23-18 23:43:00* Test Item Value Reference Range Interpretation Comments Blood Culture (test code = 85667463) NO GROWTH AFTER 5 DAYS, FINAL REPORT [facility] Pubdvtu8158-93-30 23:43:00* Test Item Value Reference Range Interpretation Comments Blood Culture (test code = 86537203) NO GROWTH AFTER 5 DAYS, [facility] Adjlvpf3597-12-34 13:28:00* Test Item Value Reference Range Interpretation Comments Blood Culture (test code = 600-7) Organism: STAPHYLOCOCCUS SP COAG NEG [facility] Oiwxezt2324-86-79 13:28:00* Test Item Value Reference Range Interpretation Comments Blood Culture (test code = 600-7) Organism: STAPHYLOCOCCUS SP COAG NEG [facility] Oxalate Wfgbtmie1633-73-71 23:55:00* Test Item Value Reference Range Interpretation Comments Urine Calcium Oxalate Crystals (test code = 5774-5) FEW FE W [facility]Differential Total Cells Counted 2017-03-03 22:37:00* Test Item Value Reference Range Interpretation Comments Differential Total Cells Counted (test code = Differen tial Total Cells Counted) 100 [facility]Neutrophils % (Manual)2017-03-03 22:37:00 * Test Item Value Reference Range Interpretation Comments Neutrophils % (Manual) (test code = 93523-8) 44 40-74 [facility]Lymphocytes % (Manual)2017-03-03 22:37:00 * Test Item Value Reference Range Interpretation Comments Lymphocytes % (Manual) (test code = 737-7) 42 19-48 [facility] % (Manual)2017-03-03 22:37:00* Test Item Value Reference Range Interpretation Comments Monocytes % (Manual) (test code = 744-3) 7 3.4-9.0 [facility]osin[facility] % (Manual)2017-03-03 22:37:00 * Test Item Value Reference Range Interpretation Comments Eosinophils % (Manual) (test code = 714-6) 6 0-7 [facility]Reactive Rjhrqetgtgg8313-37-20 22:37:00* Test Item Value Reference Range Interpretation Comments Reactive Lymphocytes (test code = 40980-0) 1 [facility] CenterPlatelet Yaktshnz9571-21-70 22:37:00* Test Item Value Reference Range Interpretation Comments Platelet Estimate (test code = 58151-4) SLIGHTLY DECREASED [facility]Pl[facility] Morphology Ngsbqkj0402-23-89 22:37:00* Test Item Value Reference Range Interpretation Comments Platelet Morphology Comment (test code = 60562-2) NORMAL [facility] Cell Morphology Nruuycq4024-17-91 22:37:00* Test Item Value Reference Range Interpretation Comments Red Cell Morphology Comment (test code = 6742-1) NORMAL [facility]Different[facility] Total Cells Counted 2017-03-03 22:37:00* Test Item Value Reference Range Interpretation Comments Differential Total Cells Counted (test code = Differen tial Total Cells Counted) 100 [facility]Neutrophils % (Manual)2017-03-03 22:37:00 * Test Item Value Reference Range Interpretation Comments Neutrophils % (Manual) (test code = 06228-0) 44 40-74 [facility] CenterLymphocytes % (Manual)2017-03-03 22:37:00 * Test Item Value Reference Range Interpretation Comments Lymphocytes % (Manual) (test code = 737-7) 42 19-48 [facility] % (Manual)2017-03-03 22:37:00* Test Item Value Reference Range Interpretation Comments Monocytes % (Manual) (test code = 744-3) 7 3.4-9.0 [facility]Eosinophils % (Manual)2017-03-03 22:37:00 * Test Item Value Reference Range Interpretation Comments Eosinophils % (Manual) (test code = 714-6) 6 0-7 [facility]Re[facility] Lmkugpatfvi2255-92-53 22:37:00* Test Item Value Reference Range Interpretation Comments Reactive Lymphocytes (test code = 22815-9) 1 [facility] CenterPlatelet Cnauxisk1237-28-97 22:37:00* Test Item Value Reference Range Interpretation Comments Platelet Estimate (test code = 97812-8) SLIGHTLY DECREASED [facility] CenterPlatelet Morphology Iwbwogv2629-89-33 22:37:00* Test Item Value Reference Range Interpretation Comments Platelet Morphology Comment (test code = 67259-8) NORMAL [facility] CenterRed Cell Morphology Mkrnsak4337-90-75 22:37:00* Test Item Value Reference Range Interpretation Comments Red Cell Morphology Comment (test code = 6742-1) NORMAL [facility] CenterMagnesium Nefov9699-19-74 21:53:00* Test Item Value Reference Range Interpretation Comments Magnesium Level (test code = 23474-3) 1.5 1.3-2.1 [facility]Magnesium Bpirz8622-91-75 21:53:00* Test Item Value Reference Range Interpretation Comments Magnesium Level (test code = 80259-2) 1.5 1.3-2.1 [facility] CenterActivated Partial Thromboplast Time 2017-03-03 21:45:00* Test Item Value Reference Range Interpretation Comments Activated Partial Thromboplast Time (test code = 46154-0) 40.2 23.8-35.5 H [facility] CenterAct[facility] Partial Thromboplast Time 2017-03-03 21:45:00* Test Item Value Reference Range Interpretation Comments Activated Partial Thromboplast Time (test code = 60764-6) 40.2 23.8-35.5 H [facility] CenterCT [facility] [address] [address] Patient Name: DEBORAH AGUERO MR #: [id number] : 1955 Age/Sex: 61/F Req #: [id number] Adm Physician: Ordered by: FRANCES MCNEILL MD Report #: [id number] Location: ER Room/Bed: Procedure: [id number] CT/CT ABDOMEN/PELVIS WO Exam D ate: Exam [...] TO: FRANCES MCNEILL MD CHEST SINGLE (PORTABLE) [place] [address] Patient Name: DEBORAH AGUERO MR #: [id number] : 0 1955 Age/Sex: 61/F Req #: [id number] Adm Physician: Ordered by: JAIDEN PALMER MD Report #: [id number] Location: ER Room/Be d: Procedure: [id number] DX/CHEST SINGLE (PORTABLE) E xam Date: 01/10/17 Exam Time: 1235 REPORT STATU S: Signed PROCEDURE: A single AP view of the chest. COMPARISON: [facility], DX, CHEST SINGLE (PORTABLE), 12/02/2016, 21:04. GILL [...] TO: JAIDEN PALMER MD CT BRAIN WO [place] [address] Patient Name: DEBORAH AGUERO MR #: [id number] : 1955 Age/Sex: 61/F Req #: [id number] Adm Physician: Ordered by: JAIDEN PALMER MD Report #: [id number] Location: ER Room/Bed: Procedure: [id number] CT/CT BRAIN WO Exam Date: Exam Time: [...]
--- NOTE | 2020-02-27 05:06 | Diagnostic Imaging Report ---
ADDENDUM #1 Vascular calcifications, including in the renal arteries. A punctate calcification the left renal interpolar area may be another renal vascular calcification versus a punctate nonobstructive calculus, stable compared to 5 additional abdominal [address]s performed in the last 8 months, including on 01/03/2020, 09/25/2019, 09/22/2019, 09/20/2019 and 07/19/2019. Signed by: Jered Howard DO on 02/27/2020 5:27 AM ORIGINAL REPORT EXAM: CT Abdomen and Pelvis WITHOUT contrast INDICATION: Abdominal pain COMPARISON: Abdominal CT 01/03/2020 TECHNIQUE: Abdomen and pelvis were scanned utilizing a multidetector helical scanner from the lung base to the pubic symphysis without administration of IV contrast. Absence of intravenous contrast decreases sensitivity for detection of focal lesions and vascular pathology. Coronal and sagittal reformations were obtained. Routine protocol was performed. IV CONTRAST: None ORAL CONTRAST: None COMPLICATIONS: None RADIATION DOSE: Total DLP: 787 mGy*cm Estimated effective dose: (DLP x 0.015 x size factor) mSv CTDIvol has been reviewed. It is below the limits set by the Radiation Protocol Committee (RPC). Dose modulation, iterative reconstruction, and/or weight based adjustment of the mA/kV was utilized to reduce the radiation dose to as low as reasonably achievable. FINDINGS: LINES/ TUBES: None. LOWER CHEST: Moderate right and small left pleural effusions. Aortic valve and mitral annular calcifications. HEPATOBILIARY: Diffuse hepatic steatosis and nodular liver surface contour. No biliary ductal dilation. Status post cholecystectomy. SPLEEN: No splenomegaly. PANCREAS: No focal masses or ductal dilatation. ADRENALS: No adrenal nodules. KIDNEYS/URETERS: No renal calculi, hydronephrosis, or solid renal mass lesion. PELVIC ORGANS/BLADDER: Unremarkable. PERITONEUM / RETROPERITONEUM: Trace ascites in the pelvis. No free air. LYMPH NODES: No lymphadenopathy. VESSELS: Sequela of portal hypertension with recanalization of the umbilical vein and a large splenorenal shunt. Small left pelvic portosystemic varices. GI TRACT: Mild stomach and proximal duodenal wall thickening, possibly related to portal gastropathy. No bowel obstruction. Moderate colonic stool burden. BONES AND SOFT TISSUES: No acute osseous injury. No suspicious lytic or blastic lesions. Mild anasarca. IMPRESSION: Persistent bilateral pleural effusions. Mild anasarca. Hepatic cirrhosis and portal hypertension with small volume ascites. Moderate colonic stool burden, correlate for constipation. Signed by: Jered Howard DO on 02/27/2020 5:03 AM
[2020-02-27] MEDS ORDERED: INSULIN REGULAR, HUMAN 100 UNIT/1 ML 3ML VIAL IV STA (05:34)
[2020-02-27] MEDS ORDERED: ONDANSETRON HCL INJ 2MG/ML 2ML 2 MG/ML VIAL IV PRN (05:45)
[2020-02-27] MEDS ORDERED: MORPHINE SULFATE INJ 4 MG/ML INJ 1ML IV PRN (05:45)
[2020-02-27] MEDS ORDERED: SODIUM CHLORIDE 0.9% 1000ML 1,000 ML IV SCH (05:45)
[2020-02-27] MEDS ORDERED: ASPIRIN 81 MG CHEW TAB PO ONE (05:45)
[2020-02-27 05:55] LABS: CLARITY,URINE CLEAR (CLEAR); COLOR,URINE YELLOW (YELLOW)
[2020-02-27 05:57] LABS: BACTERIA,URINE RARE /HPF; BILIRUBIN,URINE NEGATIVE (NEGATIVE); EPITHELIAL CELLS,URINE FEW /LPF; KETONES,URINE NEGATIVE (NEGATIVE); LEUKOCYTE ESTERASE ,URINE NEGATIVE (NEGATIVE); NITRITE,URINE NEGATIVE (NEGATIVE); PROTEIN,URINE DIPSTICK NEGATIVE (NEGATIVE); RBC,URINE 0-5 /HPF (0-5); URINE UROBILINOGEN 0.2 mg/dL (0.2 - 1); WBC,URINE (MAN) 0-5 /HPF (0-5)
--- OUTSIDE RECORDS SUMMARY | 2020-02-27 06:00 | XMS REPORT | Clinical Summary ---
Author [facility] Address Unknown Phone Unavailable Care Team Providers Care Chain Forming Machine Operator Name Role Phone Yoandy Dorman [...] pending further imaging/testing and official review at [facility]. Chronic hepatitis C without hepatic coma 10/27/2017 [...] She will meet with our trans plant building architectural designer. Encourage decreased oral intake and exercise as [...] Call Follow Up 09/27/2019 Telephone HepatPalma Sherwood, steam fitter Follow Up 09/21/2019 Telephone Hepatology Palma Arango, steam fitter Follow Up 09/15/2019 Telephone Hepatology Palma Arango, [...] RN Follow-up 07/28/2019 Telephone Hepatology Palma Arango, molding technician Follow Up 07/19/2019 Telephone Hepatology Palma Arango, [...] 04/26/2019 Telephone Hepatology Shakir Vega FNP Returning STATION CAPTAIN call of the day 04/26/2019 Telephone Hepatology Fantasma Pina NP med list 04/15/2019 Telephone Hepatology Ulicse Robert MD Fuller, [place], NP Cirrhosis [...] Type Phone Address Plan / Group [facility] MEDIC[facility] ADV [phone] Advance Directives For more information, please contact: [facility] [address] [place] [address] Date Inactivated Comments Code Status Date Activated 09/04/2018 4:14 PM Full Code 09/04/2018 5:29 AM This code status was determined by: Patient 04/05/2017 12:48 AM Full Code 04/04/2017 8:15 AM This code status was determined by: Patient
--- OUTSIDE RECORDS SUMMARY | 2020-02-27 06:00 | XMS REPORT | Clinical Summary ---
Author Author [facility] ict Organization [facility] ict Address Unknown Phone Unavailable Care Team Providers Care [employer] Cmo Name Role Phone PCP Unavailable Allergies Comments [...] lactulose (CONSTULOSE) 10 Take [place] [address] mL 3 gram/15 mL oral mouth 2 [...] / Dates Group MEDICARE MEDICARE xxxxxxxxxx 2015-P [phone] [id number] [place] [address] Advance Directives Date Inactivated Comments Code Status Date Activated 03/30/2015 6:20 PM Full Code 03/28/2015 12:55 AM 02/10/2015 6:05 PM Full Code 02/08/2015 8:43 PM
--- NOTE | 2020-02-27 06:01 | NUR ---
REPORT CALLED FROM ER PATIENT PENDING ARRIVAL TO THE FLOOR THIS AM, ADMITTED FOR ABNORMAL KIDNEY FUNCTION, COVID TEST PERFORMED IN ER(PENDING RESULTS), UA COLLECTED, CT ABDOMEN PERFORMED RESULTED, NO CARDIAC ENZYMES DUE TO BE COLLECTED, PATIENT HAS PREVIOUS ADMISSION YESTERDAY @ [facility] FOR CYST REMOVAL, TELEMETRY IN PLACE, RAC#[id number]
--- OUTSIDE RECORDS SUMMARY | 2020-02-27 06:03 | XMS REPORT | Continuity of Care Document ---
Author Author [facility] t Organization [facility] Address [address] [place] [address] Phone Unavailable Care Team Providers Care Commercial Roofing Estimator Name Role Phone NONSTAFF PCP Unavailable NIKOS KEYS Attphys Unavailable Silvana ETIOLOGY TEACHER, Spring Fantasma Attphys Conchita RN, Zafar Waldrop Attphys Unavailable Temo OLIVAS, Neris Cuellar Attphys [phone] Walter Gibbs MA Attphys Unavailable Naman MENDOZA, [place] Attphys Unavailable Andrea RYAN Attphys Unavailable Law R Nikki Attphys Unavailable Peace Weaver Attphys Zunilda Grider Attphys Unavailable Gricelda Vargas MA Attphys Unavailable Leigha Carrera MA, [place] Attphys Unavailable Yovana Macias Attphys Wanda Roebrt MD Attphys SUNDAR BURNETTE Attphys Unavailable DEMETRIUS STOKES Attphys Unavailable BLAIREMaya Attphys Unavailable TEMO NERISLAILA CUELLAR Attphys Unavailable Kristin VARNER Attphys Unavailable Andrea MCNEILL Attphys Unavailable JAIDEN PALMER Attphys Unavailable Andrea RYAN Admphys Unavailable SUNDAR BURNETTE Admphys Unavailable Payers Payer Name Policy Type Policy Number Effective Date Expiration Date 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 Problems Condition Name Condition Details Condition Category Status Onset Date Resolution Date Last Treatment Date Treating Clinician Comments Source Pre-transplant evaluation for liver transplant Pre-tra nsplant evaluation for liver transplant Disease Active 2018-04-30 00:00:00 Last Assessment & Plan: She is an acceptable candidate for liver transplant pending further imaging/testing and official review at [facility]. [facility] Chronic hepatitis C without hepatic coma Chronic hepat itis C without hepatic coma Disease Active 2017-10-27 00:00:00 [facility] Cirrhosis of liver with ascites, unspecified hepatic c irrhosis type Cirrhosis of liver with ascites, unspecified hepatic cirrhosis type Disease Activ e 2017-10-27 00:00:00 Last Assessment & Plan: Cirr hosis secondary to Hep C. [facility] Preoperative cardiovascular examination Preoperative cardiov ascular examination Disease Active 2017-04-04 00:00:00 [facility] Ascites Ascites Disease Active 2016-07-25 00:00:00 Overview: Controlled with spironolactone 100 mg daily. 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 Being referred to GI for repeat EGD for surveillance [facility] Morbidly obese Morbidly obese Disease Active 2016-07-25 00:00:00 Last Assessment & Plan: BMI is 44. She will meet with our transplant model maker apprentice. Encourage decreased oral intake and exercise as tolerated. [facility] Cirrhosis Cirrhosis Disease Active 2016-06-17 00:00:00 Last Assessment & Plan: Meld 17 with portal HTN and ascites, candidate for liver transplant listing [facility] Portal hypertension Portal hypertension Disease Active 2016-06-17 00:00 :00 Last Assessment & Plan: Portal hypertens ion with evidence by encephalopathy, varices, and ascites. 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 Diabetes mellitus Diabetes Problem Active 2015-12-06 00:00:[address] [facility] Sinusitis Sinusitis Problem Active 2015-12-06 00:00:[address] [facility] Weakness Weakness Problem Active 2015-12-06 00:00:[address] [facility] Portal hypertension with esophageal and gastric varice s Portal hypertension with esophageal and gastric varices Disease Active 2015-10-11 00:00:00 [facility] Partial portal vein thrombosis (no A/C given history o f ICH) Partial portal vein thrombosis (no A/C given history of ICH) Disease Active 2015-10-11 00:00: 00 [facility] Left shoulder pain Left shoulder pain Disease Active 2015-09-18 00:00:0 0 [facility] Impaired mobility and activities of daily living Impai red mobility and activities of daily living Disease Active 2015-03-30 00:00:00 [facility] Thrombocytopenia due to hypersplenism Thrombocytopenia due t o hypersplenism Disease Active 2015-03-28 00:00:00 [facility] Hypothyroidism Hypothyroidism Disease Active 2015-03-28 00:00:00 [facility] Iatrogenic hyperthyroidism Iatrogenic hyperthyroidism Disease Active 2015-03-28 00:00:00 [facility] HTN (hypertension), benign HTN (hypertension), benign Disease Active 2015-03-27 00:00:00 [facility] Left-sided weakness Left-sided weakness Disease Active 2015-02-08 00:00 :00 [facility] Intraparenchymal hematoma of brain Intraparenchymal hematoma of brain Disease Active 2015-02-08 00:00:00 [facility] Diabetes Diabetes Disease Active 2014-04-28 00:00:00 [facility] Hepatic encephalopathy Hepatic encephalopathy syndrome Problem Active 2014-04-18 00:00:[address] [facility] Chronic hepatitis C with cirrhosis Cirrhosis, hepatitis C Problem Active 2014-04-18 00:00:[address] [facility] SOB (shortness of breath) SOB (shortness of breath) Disease Ac tive 2013-12-08 00:00:00 [facility] MDD (major depressive disorder) MDD (major depressive disorder) Dis ease Active 2013-11-23 00:00:00 [facility] Chronic hepatitis C with cirrhosis (hepa tic sequalae thrombocytopenia 2/2 splenic sequestration w/ splenomegaly, partial portal vein occlusion, portal hypertension w/ varices, macrocytosis) Chronic hepatitis C with cirrhosis (hepatic sequalae thrombocytopenia 2/2 splenic sequestration w/ splenomegaly, partial portal vein occlusion, portal hypertension w/ varices, macrocytosis) Disease Active 2013-09-08 00:00:00 [facility] Splenomegaly Splenomegaly Disease Active 2012-09-23 00:00:00 Overview: Ct abd - spleen 13.7cm [facility] Altered mental status Change in mental status Problem Active [facility] Coagulation disorder Coagulopathy Problem Active [facility] Dehydration Dehydration Problem Active [facility] Hepatitis C virus infection Hepatitis C Problem Active [facility] Spontaneous bacterial peritonitis SBP (spontaneous bacterial peritonitis) Problem Active [facility] Cough Cough Problem Active [facility] Sepsis Problem Active [facility] Abdominal pain Problem Active [facility] Pleural effusion Problem Active [facility] HLD (hyperlipidemia) HLD (hyperlipidemia) Disease Active [facility] Obesity Obesity Disease Active [facility] ZION positive ZION positive Disease Active [facility] UTI (urinary tract infection) UTI (urinary tract infection) Disease Active [facility] Stroke Stroke Disease Active [facility] Asthma Asthma Disease Active [facility] Hepatic encephalopathy Hepatic encephalopathy Disease Active [facility] Encephalomalacia on imaging study Encephalomalacia on imaging st ud Disease Active [facility] ICH (intracerebral hemorrhage) ICH (intracerebral hemorrhage) Disease Active [facility] Gastric ulcer Gastric ulcer Disease Active [facility] Vitamin D deficiency Vitamin D deficiency Disease Active [facility] Allergies, Adverse Reactions, Alerts Allergy Name Allergy Type Status Severity Reaction(s) Onset Date Inacti ve Date Treating Clinician Comments Source No Known Allergies DA Active U 2015-10-04 00:00:00 [facility] Family History Family Member Diagnosis Comments Start Date Stop Date Source Natural father Heart [facility] Natural father Hypertension [facility] Natural mother Arthritis [facility] Natural mother Cancer [facility] Natural mother Diabetes [facility] Natural mother Hypertension [facility] Natural sister Asthma [facility] Social History Social Habit Start Date Stop Date Quantity Comments Source Sex Assigned At [facility] Alcohol intake 2015-12-27 00:00:00 2015-12-27 00:00:00 Current non-drinker of alcohol (finding) [facility] Smoking Status Start Date Stop Date Source Former smoker 2015-12-27 00:00:00 2015-12-27 00:00:00 [facility] Medications Ordered Medication Name Filled Medication Name Start Date Stop Da te Current Medication? Ordering Clinician Indication Dosage Frequency Signature (SIG) Comments Components Source rifAXIMin 550 mg Tab 2019-12-10 14:03:35 2019-12-10 00:00:00 No 550mg Q.5D Take 550 mg by mouth 2 (two) times daily. [facility] rifAXIMin (XIFAXAN) 550 mg Tab 2019-12-10 00:00:00 Yes Hepatic encephalopathy (HCC) 550mg Q.5D Take 1 tablet (550 mg total) by mouth 2 (two) times daily. [facility] ursodioL (ACTIGALL) 300 mg capsule 2019-10-20 00:00:00 05-30-26 23:59:00 No Cirrhosis of liver with ascites, unspecified hepatic c irrhosis type (HCC) 600mg Q.5D Take 2 capsules (600 mg total) by mouth 2 (two) times daily. [facility] Albuterol Sulfate (Proventil Hfa) 6.7 Gm HFA.AER.AD Al buterol Sulfate (Proventil Hfa) 6.7 Gm HFA.AER.AD 2019-07-14 14:51:00 Yes 6.7 As Needed for Shortness Of Breath [facility] ursodiol (ACTIGALL) 300 mg capsule 2019-06-24 00:00:00 00:00:00 No Cirrhosis of liver with ascites, unspecified hepatic c irrhosis type (HCC) 600mg Q.5D Take 2 capsules (600 mg total) by mouth 2 (two) times daily. [facility] insulin glargine (LANTUS) 100 unit/mL injection 2018-09-04 07:06 :57 Yes 60U Q.5D Inject 60 Units subcutaneously 2 (two) times abhishek ly Use as directed . [facility] insulin aspart U-100 (NOVOLOG) 100 unit/mL injection 2 07:06:57 Yes 10U Q.5D Inject 10 Units subcutaneously 2 (two) t imes daily. [facility] furosemide (LASIX) 40 MG tablet 2018-09-04 05:57:40 Yes 40mg QD Take 40 mg by mouth daily. [facility] propranolol (INDERAL) 10 MG tablet 2018-09-04 05:57:39 Yes 10mg Q.5D Take 10 mg by mouth 2 (two) times daily. [facility] ALBUTEROL SULFATE (PROVENTIL HFA INHL) 2017-04-04 08:39:05 Yes 2{puff} Inhale 2 puffs by mouth via inhaler 2 (two) times daily as neede d. [facility] omeprazole (PRILOSEC) 40 MG capsule 2017-04-04 08:39:05 Yes 40mg QD Take 40 mg by mouth daily. [facility] polyethylene glycol (GLYCOLAX) 17 gram packet 2017-04-04 08:39:0 5 Yes 17g QD Take 17 g by mouth daily. [facility] Amoxicillin/Potassium Clav (Amox Tr-K Clv 875-125 Mg T ab) 1 Each TABLET Amoxicillin/Potassium Clav (Amox Tr-K Clv 875-125 Mg Tab) 1 Each TABLET 2016-06-24 18:30:00 2016-12-02 00:00:00 No 875 Every [address] [facility] lactulose (CHRONULAC) 10 gram/15 mL solution 2016-06-17 00:00:00 Yes 20g [id number] Take 20 g by mouth 3 (three) times daily . [facility] levothyroxine (SYNTHROID, LEVOTHROID) 125 MCG tablet 2 00:00:00 Yes 125ug Take 125 mcg by mouth. [facility] spironolactone (ALDACTONE) 100 MG tablet 2016-04-23 00:00:00 Yes 100mg QD Take 100 mg by mouth daily . [facility] levothyroxine (SYNTHROID) 112 mcg tablet 2016-01-16 00:00:00 Yes Other specified hypothyroidism 112ug QD Take 1 tablet by mouth daily. [facility] polyethylene glycol (GLYCOLAX) 17 gram/dose oral powder 2016-01-10 00:00:00 Yes Other constipation Mix 17 gr ams into 4 to 8 ounces of water, juice, soda, tea or coffee and drink as directed, one time a day. [facility] polyethylene glycol (MIRALAX) 17 gram/dose oral powder 2015-12-29 00:00:00 Yes Slow transit constipation Mi x 17 grams into 4 to 8 ounces of water, juice, soda, tea or coffee and drink as directed, one time a day. [facility] calcitriol (ROCALTROL) 0.25 mcg capsule 2015-12-27 00:00:00 Yes Vitamin D deficiency .25ug QD Take 1 capsule by mouth daily. [facility] lactulose (CONSTULOSE) 10 gram/15 mL oral solution 2015-11 00:00:00 Yes Hepatic cirrhosis due to chronic hepatitis C infection 20g Q.5D Take 30 mL by mouth 2 times daily for 90 days. [facility] albuterol (PROVENTIL) 2.5 mg /3 mL (0.083 %) nebulizer solut ion 2015-12-18 00:00:00 Yes Medication refill 2.5mg In goff 3 mL by mouth every 6 hours as needed for Wheezing or Shortness of Breath (Patient has nebulizer machine at home). [facility] dexlansoprazole (DEXILANT) 30 mg delayed release capsule 2015-11-19 00:00:00 Yes GERD (gastroesophageal reflux disease) 30mg QD Take 1 capsule by mouth daily [facility] cetirizine (ZYRTEC) 10 mg tablet 2015-10-05 00:00:00 Yes Medication refill 10mg QD Take 1 tablet by mouth daily. [facility] predniSONE (DELTASONE) 20 mg tablet 2015-10-05 00:00:00 Yes Medication refill 60mg QD Take 3 tablets by mouth daily. [facility] codeine-guaiFENesin (CHERATUSSIN AC) 10-100 mg/5 mL syrup 2015-10-05 00:00:00 Yes Medication refill 5mL Take 5 mL by mouth 3 times daily as needed for Cough. [facility] ofloxacin (OCUFLOX) 0.3 % ophthalmic solution 2015-10-05 00: 00:00 Yes Bilateral acute serous otitis media, recurrence not specified Instill 5 drops to each ear daily for 10 days. Ok for pharmacist to 0.3% ofloxacin eye solution for ear treatment.. [facility] furosemide (LASIX) 20 mg tablet 2015-09-06 00:00:00 Yes Hepatic cirrhosis, unspecified hepatic cirrhosis type 20mg Q.5D Take 1 tablet by mouth 2 times daily. [facility] spironolactone (ALDACTONE) 100 mg tablet 2015-09-06 00:00:00 Yes Hepatic cirrhosis, unspecified hepatic cirrhosis type 100mg QD Take 1 tablet by mouth daily [facility] propranolol (INDERAL) 10 mg tablet 2015-09-06 00:00:00 Yes Essential hypertension with goal blood pressure less than 140/90 10mg Q.5D Take 1 tablet by mouth 2 times daily. [facility] atorvastatin (LIPITOR) 10 mg tablet 2015-09-06 00:00:00 Yes Cerebrovascular accident (CVA) due to other mechanism 10mg Take 1 tablet by mouth at bedtime nightly. [facility] albuterol (VENTOLIN HFA,PROVENTIL HFA,PROAIR HFA) 90 mcg/act uation inhaler 2015-09-06 00:00:00 Yes Acute bronchitis, unspecified organism 2{puff} Inhale 2 Puffs by mouth 4 times daily as needed for Wheezing. [facility] lactulose (CHRONULAC) 10 gram/15 mL oral solution 2015-05-31 00:00:00 Yes Medication refill 30g Take 45 mL by mouth 3 times daily for 90 days. [facility] hydrocortisone 2.5 % topical cream 2014-05-31 00:00:00 Yes Rash and other nonspecific skin eruption Q.5D Apply to affected area 2 times d aily. [facility] sertraline (ZOLOFT) 50 mg tablet 2014-03-30 00:00:00 Yes MDD (major depressive disorder) Take 1/2 tab by tk th daily for 1 week; then increase to 1 full tab daily for depression. [facility] Benzonatate Benzonatate Yes 100 Three Times A Da y [facility] Dexlansoprazole (Dexilant) 30 Mg CAP. Dexlansopra zole (Dexilant) 30 Mg CAP. Yes [facility] Furosemide (Lasix) 40 Mg TABLET Furosemide (Lasix) 40 Mg TABLET Yes [address] [facility] Glimepiride Glimepiride Yes C [facility] Insulin Glargine (Lantus 3ML Pen) 100 Units/1 Ml INJ I nsulin Glargine (Lantus 3ML Pen) 100 Units/1 Ml INJ Yes [address] [facility] Lactulose Lactulose Yes 20 Three Times A Day [facility] Levothyroxine Sodium (Synthroid) 125 Mcg TAB Levothyro xine Sodium (Synthroid) 125 Mcg TAB Yes [address] [facility] Levothyroxine Sodium (Synthroid) 125 Mcg TAB Levothyro xine Sodium (Synthroid) 125 Mcg TAB Yes 125 Today At 6:30AM [facility] Magnesium Oxide Magnesium Oxide Yes [address] [facility] Omeprazole Omeprazole Yes Daily [facility] Propranolol Hcl Propranolol Hcl Yes 10 Twice A Day [facility] Propranolol Hcl Propranolol Hcl Yes 10 Twice A Day [facility] Rifaximin (Xifaxan) 550 Mg TABLET Rifaximin (Xifaxan) 550 Mg TABLET Yes 1 Twice A Day [facility] Spironolactone Spironolactone Yes [address] [facility] Ursodiol (Actigall) 300 Mg CAPSULE Ursodiol (Actigall) 300 Mg CAPSULE Yes 2 Twice A Day [facility] Zinc Sulfate Zinc Sulfate Yes [address] [facility] Albuterol Sulfate (Proventil Hfa) 6.7 Gm HFA.AER.AD Al buterol Sulfate (Proventil Hfa) 6.7 Gm HFA.AER.AD 2019-07-14 00:00:00 No As Needed for Shortness Of Breath [facility] Albuterol Sulfate (Ventolin Hfa) 18 Gm HFA.AER.AD Albu terol Sulfate (Ventolin Hfa) 18 Gm HFA.AER.AD 2019-07-13 00:00:00 No Ev aureliano [address] [facility] Cholecalciferol (Vitamin D3) (Vitamin D) 1,000 Unit TA BLET Cholecalciferol (Vitamin D3) (Vitamin D) 1,000 Unit TABLET 2019-07-13 00:00:00 No 5000 Weekly [facility] Insulin Aspart (Novolog) 100 Unit/1 Ml CARTRIDGE Insul in Aspart (Novolog) 100 Unit/1 Ml CARTRIDGE 2019-07-13 00:00:00 No [address] [facility] Xifaxan Xifaxan 2019-07-13 00:00:00 No 550 Twice A D ay [facility] Metformin Hcl Metformin Hcl 2017-11-29 00:00:00 No 500 Twice A Day [facility] Polyethylene Glycol 3350 Polyethylene Glycol 3350 2017-11-29 00: 00:00 No 17 As Needed as needed for Constipation [facility] Spironolactone (Aldactone) 100 Mg TABLET Spironolacton e (Aldactone) 100 Mg TABLET 2017-11-29 00:00:[address] No [address] [facility] Glimepiride Glimepiride 2017-11-11 00:00:00 No [address] [facility] Dexlansoprazole (Dexilant) 30 Mg CAP. Dexlansopra zole (Dexilant) 30 Mg CAP. 2017-01-11 00:00:[address] No [address] [facility] Propranolol Hcl Propranolol Hcl 2016-06-28 00:00:[address] No [address] [facility] Albuterol Sulfate (Proventil Hfa) 6.7 Gm HFA.AER.AD Al buterol Sulfate (Proventil Hfa) 6.7 Gm HFA.AER.AD 2016-06-18 00:00:00 No 1 Every 4 Hours as needed for Shortness Of Breath [facility] Amlodipine Besylate Amlodipine Besylate 2016-06-18 00:00:00 No 10 Daily At 1500 [facility] Fluticasone Propionate (Flonase) 16 Gm SPRAY.SUSP Flut icasone Propionate (Flonase) 16 Gm SPRAY.SUSP 2016-06-18 00:00:00 No 1 Twice A Day [facility] Hydrocodone Bit/Acetaminophen ([place] 5-325 Tablet) 1 E ach TABLET Hydrocodone Bit/Acetaminophen ([place] 5-325 Tablet) 1 Each TABLET 2016-06-18 00: 00:00 No 1 Every 8 Hours as needed for Pain [facility] Insulin Detemir (Levemir 3ML Flexpen*) 100 Units/Ml IN J Insulin Detemir (Levemir 3ML Flexpen*) 100 Units/Ml INJ 2016-06-18 00:00:[address] [facility] Lactulose Lactulose 2016-06-18 00:00:00 No 2 Twice A Day [facility] Levothyroxine Sodium Levothyroxine Sodium 2016-06-18 00:00:00 No 137 Daily At 1500 [facility] Omeprazole Omeprazole 2016-06-18 00:00:00 No 40 Abhishek ly [address]n [facility] Polyethylene Glycol 3350 Polyethylene Glycol 3350 2016-06-18 00: 00:00 No [address] [facility] Rifaximin (Xifaxan) 550 Mg TABLET Rifaximin (Xifaxan) 550 Mg TAB LET 2016-06-18 00:00:00 No 1 Twice A Day [facility] Sertraline Hcl Sertraline Hcl 2016-06-18 00:00:00 No [address] [facility] Spironolactone Spironolactone 2016-06-18 00:00:00 No 100 Daily At 1500 [facility] Immunizations Ordered Immunization Name Filled Immunization Name Date Status Comments Source Pneumococcal 7-valent conj 0.5 mL injection 2014-02-07 00: 00:00 Completed [facility] PNEUMOCOCCAL 23-VALPS VACCINE 25 MCG/0.5 ML INJECTION 2014-02-07 00:00:00 [facility] Vital Signs Vital Name Observation Time Observation Value Comments Source Systolic blood pressure 2020-02-03 14:53:00 139 mm[Hg] [facility] Diastolic blood pressure 2020-02-03 14:53:00 88 mm[Hg] [facility] Heart rate 2020-02-03 14:53:00 67 /min [facility] Body temperature 2020-02-03 14:53:00 37 Janet [facility] Respiratory rate 2020-02-03 14:53:00 18 /min [facility] Body height 2020-02-03 14:53:00 160 cm [facility] Body weight Measured 2020-02-03 14:53:00 96.525 kg [facility] BMI 2020-02-03 14:53:00 37.70 kg/m2 [facility] Oxygen saturation in Arterial blood by Pulse oximetry 02-02 14:53:00 94 /min [facility] 2020-01-05 16:09:00 97.6 [degF] [facility] Weight 2020-01-05 00:22:00 212.19 [lb_av] [facility] BMI (Body Mass Index) 2020-01-05 00:22:00 37.6 kg/m2 [facility] Body Temperature 2019-09-28 11:52:00 98.4 [degF] [facility] BMI (Body Mass Index) 2019-09-25 17:12:00 41.3 kg/m2 [facility] Weight 2019-09-25 09:41:00 226 [lb_av] [facility] Procedures Procedure Date / Time Performed Performing Clinician Sourc e Thoracentesis with ultrasound guidance 2020-01-05 00:00:[address] [facility] X-ray of chest, single view 2020-01-05 00:00:[address] [facility] Computed tomography of abdomen and pelvis with contrast 00:00:[address] [facility] Computed tomography of chest with contrast 2020-01-03 00:00:[address] [facility] US Abdomen limited 2019-09-27 00:00:00 [facility] Computed tomography of abdomen and pelvis with contrast 00:00:[address] [facility] Computed tomography of chest with contrast 2019-09-25 00:00:[address] [facility] Computed tomography of abdomen and pelvis with contrast 00:00:[address] [facility] CT of abdomen and pelvis without contrast 2019-09-20 00:00:[address] [facility] US Abdomen limited 2019-07-21 00:00:00 MARKO HOLLINS [facility] Computed tomography of abdomen and pelvis with contrast 2019 00:00:[address] [facility] X-ray of chest, two views 2019-07-13 00:00:00 [address] [facility] Computed tomography of chest with contrast 2019-07-13 00:00:00 NIKOS BAÑUELOS [facility] US abdomen complete 2019-07-13 00:00:[address] [facility] Plan of Care Planned Activity Planned Date Details Comments Source Future Scheduled Test 2027-04-01 00:00:00 Screening for iris gnant neoplasm of colon (procedure) [code = 526301822] [facility] Future Scheduled Test 2022-08-11 00:00:00 PNEUMOCOCCAL 65+ H IGH/HIGHEST RISK (2 of 2 - PPSV23) [code = PNEUMOCOCCAL 65+ HIGH/HIGHEST RISK (2 of 2 - PPSV23)] [facility] Future Scheduled Test 2020-06-23 00:00:00 Screening for iris gnant neoplasm of breast (procedure) [code = 762268853] [facility] Future Scheduled Test 2020-01-25 00:00:00 INFLUENZA VACCINE (#1) [code = INFLUENZA VACCINE (#1)] [facility] Scheduled Test 2017-02-24 00:00:00 MEDICARE ANNUAL WE LLNESS (YEAR 2 or FIRST YEAR if no IPPE) [code = MEDICARE ANNUAL WELLNESS (YEAR 2 or FIRST YEAR if no IPPE)] [facility] Scheduled Test 2017-02-13 00:00:00 DM Retinal Exam (Y early) [code = DM Retinal Exam (Yearly)] [facility] Scheduled Test 2016-07-06 00:00:00 Hemoglobin A1c patricia surement (procedure) [code = 53799584] [facility] Scheduled Test 2016-05-22 00:00:00 Urine screening fo r protein (procedure) [code = 799093455] [facility] Scheduled Test 2003-08-18 00:00:00 Screening for iris gnant neoplasm of colon (procedure) [code = 277201210] [facility] Scheduled Test 1993 00:00:00 Breast Cancer Scrn (Yearly) [code = Breast Cancer Scrn (Yearly)] [facility] Scheduled Test 1971-08-18 00:00:00 DM Foot Exam (Year ly) [code = DM Foot Exam (Yearly)] [facility] Pleural Effusion [facility] Encounters Start Date/Time End Date/Time Encounter Type Admission Type Attendi [facility] Care Department Encounter ID Source 2019-09-25 15:34:00 2019-09-28 14:32:00 Discharged Inpatient 1 [facility] [id number] [facility] 2019-09-21 00:20:00 2019-09-23 16:52:00 Discharged Inpatient 1 [facility] [id number] [facility] 2019-07-19 17:44:00 2019-07-21 12:46:00 Discharged Inpatient 1 [facility] [id number] [facility] 2019-07-13 13:53:00 2019-07-14 16:25:00 Discharged Inpatient (obs) 1 [facility] [id number] [facility] 2018-07-10 11:21:00 2018-07-10 17:27:00 Departed Emergency Room 1 BLAIREKENDALL CRUZ [facility] [id number] [facility] 2017-11-29 05:44:00 2017-12-01 12:56:00 Discharged Inpatient 1 [facility] [id number] [facility] 2017-11-10 14:15:00 2017-11-11 13:30:00 Discharged Inpatient (obs) 1 JAIDEN VARNER [facility] [id number] [facility] 2017-03-03 17:08:00 2017-03-04 00:35:00 Departed Emergency Room ER FRANCES MCNEILL [facility] [id number] [facility] Results Test Description Test Time Test Comments Results Result Comments Source CT ABDOMEN/PELVIS WO 2020-02-27 04:54:00 [place] [address] Patient Name: DEBORAH AGUERO MR #: [id number] : 1955 Age/Sex: 64/F Req #: [id number] Adm Physician: Ordered by: NIKOS KEYS DO Report #: [id number] Location: Room/Bed: Procedure: [id number] CT/CT ABDOMEN/PELVIS WO Exam Date: 02/27/20 Exam Time: 0425 REPORT STATUS: Signed ADDENDUM #1 Vascular calcifications, including in the renal arteries. A punctate calcification the left renal interpolar area may be another renal vascular calcification versus a punctate nonobstructive calculus, stable compared to 5 additional abdominal CTs performed in the last 8 months, including on 01/03/2020, 09/25/2019, 09/22/2019, 09/20/2019 and 07/19/2019. Signed by: Jered Heredia DO on 02/27/2020 5:27 AM ORIGINAL REPORT EXAM: CT Abdomen and Pelvis WITHOUT contrast INDICATION: Abdominal pain COMPARISON: Abdominal CT 01/03/2020 TECHNIQUE: Abdomen and pelvis were scanned utilizing a multidetector helical scanner from the lung base to the pubic symphysis without administration of IV contrast. Absence of intravenous contrast decreases sensitivity for detection of focal lesions and vascular pathology. Coronal and sagittal reformations were obtained. Routine protocol was performed. IV CONTRAST: None ORAL CONTRAST: None COMPLICATIONS: None RADIATION DOSE: Total DLP: 787 mGy*cm Estimated effective dose: (DLP x 0.015 x size factor) mSv CTDIvol has been reviewed. It is below the limits set by the Radiation Protocol Committee (RPC). Dose modulation, iterative reconstruction, and/or weight based adjustment of the mA/kV was utilized to reduce the radiation dose to as low as reasonably achievable. FINDINGS: LINES/ TUBES: None. LOWER CHEST: Moderate right and small left pleural effusions. Aortic valve and mitral annular calcifications. HEPATOBILIARY: Diffuse hepatic steatosis and nodular liver [...] recanalization of the umbilical vein and a large splenorenal shunt. Small left pelvic portosystemic varices. GI TRACT: Mild stomach and proximal duodenal wall thickening, possibly related to portal gastropathy. No bowel obstruction. Moderate colonic stool burden. BONES AND SOFT TISSUES: No acute osseous injury. No suspicious lytic or blastic lesions. Mild anasarca. IMPRESSION: Persistent bilateral pleural effusions. Mild anasarca. Hepatic cirrhosis and portal hypertension with small volume ascites. Moderate colonic stool burden, correlate for constipation. Signed by: Jered Heredia DO on 02/27/2020 5:03 AM Dictated By: JERED HEREDIA DO 0527 Transcribed By: LIV on 02/27/20 8653 COPY TO: NIKOS KEYS DO GLUBED 2020-02-26 12:01:00 Test Item GLUBED (test code = GLUBED) 368 mg/dL 74-106 H Performed by certified chucking and sawing machine operator at [facility] [id number] 07:43:00* Test Item Value Reference Range Interpretation Comments GLUBED (test code = GLUBED) 342 mg/dL 74-106 H Performed by certified chucking and sawing machine operator at [facility] BASIC METABOLIC [id number] 06:21:00* Test Item Value Reference Range Interpretation [...] CA) 9.7 mg/dL 8.5-10.1 N CBC W/O [id number] 06:17:00* Test Item Value Reference Range Interpretation [...] MPV) 11.5 fL 6.7-11.0 H BASIC METABOLIC [id number] 06:14:00* Test Item Value Reference Range Interpretation [...] CALCIUM (test code = CA) mg/dL 8.5-10.1 [id number] 22:24:00* Test Item Value Reference Range Interpretation Comments GLUBED (test code = GLUBED) 368 mg/dL 74-106 H Performed by certified chucking and sawing machine operator at [facility] [id number] 16:10:00* Test Item Value Reference Range Interpretation Comments GLUBED (test code = GLUBED) 368 mg/dL 74-106 H Performed by certified chucking and sawing machine operator at [facility] [id number] 11:50:00* Test Item Value Reference Range Interpretation Comments GLUBED (test code = GLUBED) 412 mg/dL 74-106 H Performed by certified chucking and sawing machine operator at [facility] [id number] 07:54:00* Test Item Value Reference Range Interpretation Comments GLUBED (test code = GLUBED) 322 mg/dL 74-106 H Performed by certified chucking and sawing machine operator at [facility] [id number] 20:18:00* Test Item Value Reference Range Interpretation Comments GLUBED (test code = GLUBED) 342 mg/dL 74-106 H Performed by certified chucking and sawing machine operator at [facility] [id number] 17:18:00* Test Item Value Reference Range Interpretation Comments GLUBED (test code = GLUBED) 398 mg/dL 74-106 H Performed by certified chucking and sawing machine operator at [facility] [id number] 12:12:00* Test Item Value Reference Range Interpretation Comments GLUBED (test code = GLUBED) 489 mg/dL 74-106 H Performed by certified chucking and sawing machine operator at [facility] [id number] 08:28:00* Test Item Value Reference Range Interpretation Comments GLUBED (test code = GLUBED) 409 mg/dL 74-106 H Performed by certified chucking and sawing machine operator at [facility] BASIC METABOLIC [id number] 04:44:00* Test Item Value Reference Range Interpretation [...] CA) 8.3 mg/dL 8.5-10.1 L BASIC METABOLIC [id number] 04:24:00* Test Item Value Reference Range Interpretation [...] code = CA) mg/dL 8.5-10.1 CBC W/AUTO [id number] 04:20:00* Test Item Value Reference Range Interpretation [...] REQUIRED (test code = MDIFF) NO PROTHROMBIN [id number] 04:09:00* Test Item Value Reference Range Interpretation [...] heart valves (2.5-3.5) IS PATIENT ON ANTICOAGULANTS? [id number] 22:16:00* Test Item Value Reference Range Interpretation Comments GLUBED (test code = GLUBED) 338 mg/dL 74-106 H Performed by certified chucking and sawing machine operator at [facility] - XR SPINE 1 V SPEC [id number] 16:43:00 FAX: Kamaljit Pierce MD Donna: B St: ADM FAX: Yoandy Mar MD [phone] FAX: Daniel Meek DO FAX: Raj Nesbitt MD [phone] Name: GAURAV AGUERO [facility] : 1955 Age/S: 64/F [address] Unit #: [id number] Loc: V.[address] [place] [address] Phys: Raj Lopez MD Acct: [id number] Dis Date: Status: ADM IN PHONE #: [phone] Exam D ate: 02/23/2020 1628 FAX #: [phone] Reason: L AMINECTOMY EXAMS: CPT CODE: [id number] XR SPINE 1 V SPEC LEVEL 00060 Exam: Intraoperative spine level localization FINDINGS/ IMPRESSION: Single lateral intraoperative lumbar radiograph taken at 4:16 PM on 02/23/2020 with radiopaque marker marker overlying L4-L5. Single lateral intraoperative lumbar radiograph taken at 4:28 PM on 02/23/2020 with radiopaque marker overly ing L5-S1. a t 549 Reported and signed by: Harinder Dozier M.D. CC: Kamaljit Pierce MD; Yoandy Dorman; Daniel Meek DO; Raj Lopez MD echnologist: RT BHANU(R) Trnscrd Date /Time/By: 02/23/2020 (1642) : By: [email or web address] Orig Print D/T: S: 020 (2152) PAGE 1 Signed Report - XR SPINE 1 V SPEC [id number] 16:43:00 FAX: Kamaljit Pierce MD Donna: B St: ADM FAX: Yoandy Mar MD [phone] FAX: Daniel Meek DO FAX: Raj Nesbitt MD [phone] Name: GAURAV AGUERO [facility] : 1955 Age/S: 64/F [address] Unit #: [id number] Loc: V.[address] [place] [address] Phys: Raj Lopez MD Acct: [id number] Dis Date: Status: ADM IN PHONE #: [phone] Exam D ate: 02/23/2020 1623 FAX #: [phone] Reason: L AMINECTOMY EXAMS: CPT CODE: [id number] XR SPINE 1 V SPEC LEVEL 02839 Exam: Intraoperative spine level localization FINDINGS/ IMPRESSION: Single lateral intraoperative lumbar radiograph taken at 4:16 PM on 02/23/2020 with radiopaque marker marker overlying L4-L5. Single lateral intraoperative lumbar radiograph taken at 4:28 PM on 02/23/2020 with radiopaque marker overly ing L5-S1. a t 1642 Reported and signed by: Harinder Dozier M.D. CC: Kamaljit Pierce MD; Yoandy Dorman; Daniel Meek Lee ; Raj Lopez MD T echnologist: GENARO VASQUEZ, RT(R) Trnscrd Date /Time/By: 02/23/2020 (1642) : By: [email or web address] Orig Print D/T: S: 020 (1913) PAGE 1 Signed Report CBC W/O [id number] 15:19:00* Test Item Value Reference Range Interpretation [...] code = MPV) 10.7 fL 6.7-11.0 N [id number] 11:39:00* Test Item Value Reference Range Interpretation Comments GLUBED (test code = GLUBED) 314 mg/dL 74-106 H Performed by certified chucking and sawing machine operator at [facility] [id number] 08:50:00* Test Item Value Reference Range Interpretation Comments GLUBED (test code = GLUBED) 330 mg/dL 74-106 H Performed by certified chucking and sawing machine operator at [facility] [id number] 08:30:00* Test Item Value Reference Range Interpretation Comments GLUBED (test code = GLUBED) 361 mg/dL 74-106 H Performed by certified chucking and sawing machine operator at [facility] PROTHROMBIN [id number] 03:30:00* Test Item Value Reference Range Interpretation [...] (2.5-3.5) IS PATIENT ON ANTICOAGULANTS? NCBC W/O [id number] 02:59:00* Test Item Value Reference Range Interpretation [...] = MPV) 11.1 fL 6.7-11.0 H PROTHROMBIN [id number] 21:26:00* Test Item Value Reference Range Interpretation [...] (2.5-3.5) IS PATIENT ON ANTICOAGULANTS? NCBC W/O [id number] 21:04:00* Test Item Value Reference Range Interpretation [...] code = MPV) 11.3 fL 6.7-11.0 H [id number] 20:37:00* Test Item Value Reference Range Interpretation Comments GLUBED (test code = GLUBED) 198 mg/dL 74-106 H Performed by certified chucking and sawing machine operator at [facility] VITAMIN [id number] 18:38:00* Test Item Value Reference Range Interpretation Comments VITAMIN B12 (test code = VITB12) 2888 pg/mL 193-986 H SPECIMEN COMMENTS: add onFOLIC [id number] 18:38:00* Test Item Value Reference Range Interpretation Comments FOLIC ACID (test code = FOL) 9.1 ng/mL 3.10-17.50 N SPECIMEN COMMENTS: add [id number] 16:59:00* Test Item Value Reference Range Interpretation Comments GLUBED (test code = GLUBED) 261 mg/dL 74-106 H Performed by certified chucking and sawing machine operator at [facility] [id number] 12:36:00* Test Item Value Reference Range Interpretation Comments GLUBED (test code = GLUBED) 160 mg/dL 74-106 H Performed by certified chucking and sawing machine operator at [facility] [id number] 11:58:00* Test Item Value Reference Range Interpretation Comments GLUBED (test code = GLUBED) 187 mg/dL 74-106 H Performed by certified chucking and sawing machine operator at [facility] CBC W/O [id number] 11:05:00* Test Item Value Reference Range Interpretation [...] = MPV) 11.4 fL 6.7-11.0 H PROTHROMBIN [id number] 10:19:00* Test Item Value Reference Range Interpretation [...] heart valves (2.5-3.5) IS PATIENT ON ANTICOAGULANTS? [id number] 09:42:00* Test Item Value Reference Range Interpretation Comments GLUBED (test code = GLUBED) 172 mg/dL 74-106 H Performed by certified chucking and sawing machine operator at [facility] CBC W/AUTO [id number] 05:44:00* Test Item Value Reference Range Interpretation [...] = MDIFF) NO, ONLY SCAN NEEDED DIFFERENTIAL [id number] 05:44:00* Test Item Value Reference Range Interpretation Comments STAIN ACCEPTABILITY (test code = STN ACCEPTABLE) STAIN ACCEPTABLE ANISOCYTOSIS (test code = ANISO) 2+ MACROCYTOSIS (test code = MACR) 2+ MORPHOLOGY COMMENT (test code = MOC) TEST NOT PERFORMED PLATELET ESTIMATE (test code = PLTEST) DECREASED PLATELET MORPHOLOGY (test code = PLTMORPH) NORMAL BASIC METABOLIC [id number] 05:15:00* Test Item Value Reference Range Interpretation [...] result is a direct measurement.========= CBC W/AUTO [id number] 04:53:00* Test Item Value Reference Range Interpretation [...] = MDIFF) NO, ONLY SCAN NEEDED DIFFERENTIAL [id number] 04:53:00* Test Item Value Reference Range Interpretation Comments STAIN ACCEPTABILITY (test code = STN ACCEPTABLE) CABOT RINGS (test code = CAB) MORPHOLOGY COMMENT (test code = MOC) PLATELET ESTIMATE (test code = PLTEST) PLATELET MORPHOLOGY (test code = PLTMORPH) CBC W/AUTO [id number] 04:53:00* Test Item Value Reference Range Interpretation [...] = MDIFF) NO, ONLY SCAN NEEDED DIFFERENTIAL [id number] 04:53:00* Test Item Value Reference Range Interpretation Comments STAIN ACCEPTABILITY (test code = STN ACCEPTABLE) CABOT RINGS (test code = CAB) MORPHOLOGY COMMENT (test code = MOC) PLATELET ESTIMATE (test code = PLTEST) PLATELET MORPHOLOGY (test code = PLTMORPH) CBC W/AUTO [id number] 04:53:00* Test Item Value Reference Range Interpretation [...] = MDIFF) NO, ONLY SCAN NEEDED DIFFERENTIAL [id number] 04:53:00* Test Item Value Reference Range Interpretation Comments STAIN ACCEPTABILITY (test code = STN ACCEPTABLE) MORPHOLOGY COMMENT (test code = MOC) PLATELET ESTIMATE (test code = PLTEST) PLATELET MORPHOLOGY (test code = PLTMORPH) CBC W/AUTO [id number] 04:53:00* Test Item Value Reference Range Interpretation [...] = MDIFF) NO, ONLY SCAN NEEDED DIFFERENTIAL [id number] 04:53:00* Test Item Value Reference Range Interpretation Comments STAIN ACCEPTABILITY (test code = STN ACCEPTABLE) CABOT RINGS (test code = CAB) MORPHOLOGY COMMENT (test code = MOC) PLATELET ESTIMATE (test code = PLTEST) PLATELET MORPHOLOGY (test code = PLTMORPH) [id number] 00:24:00* Test Item Value Reference Range Interpretation Comments GLYCOSYLATED HEMOGLOBIN (HA1C) (test code = GLYHGB) 8.1 % HbA1 SUGGESTED DIAGNOSIS: HbA1C (%) Diabetic >6.4Prediabetes 5.7 - 6.4Normal <5.7 ESTIMATED AVERAGE GLUCOSE (test code = EAG) 186 MG/DL HEPATIC FUNCTION [id number] 23:04:00* Test Item Value Reference Range Interpretation [...] range due to change in reagent. PROTHROMBIN [id number] 22:40:00* Test Item Value Reference Range Interpretation [...] (2.5-3.5) IS PATIENT ON ANTICOAGULANTS? NTHROMBOPLASTIN TIME [id number] 22:40:00* Test Item Value Reference Range Interpretation Comments THROMBOPLASTIN TIME PARTIAL (test code = PTT) 36.0 seconds 23.0-37. 0 N IS PATIENT ON ANTICOAGULANTS? [id number] 20:30:00* Test Item Value Reference Range Interpretation Comments GLUBED (test code = GLUBED) 300 mg/dL 74-106 H Performed by certified chucking and sawing machine operator at [facility] COVID 19 Asymptomatic IH [id number] 17:42:00* Test Item Value Reference Range Interpretation Comments COVID 19 Asymptomatic IH AG (test code = COVNONPUIAG) NEGATIVE - MRI L-SPINE W WO [id number] 15:53:00 FAX: Kamaljit Pierce MD Donna: B St: REG Name: DEBORAH ROLAND [facility] : [birth year] Age/S: 64/F [address] Unit #: [id number] Loc: [place] [address] Phys: Kamaljit Pierce MD Acct: [id number] Dis Date: Status: REG ER PHONE #: [phone] Exam Date: 02/21/2020 1429 FAX #: [phone] Reason: lumbar pain radiating down R leg, urinary incon EXAMS: CPT CODE: [id number] MRI L-SPINE W WO CON [id number] REASON FOR EXAM: lumbar pain radia ting down R leg, urinary incontinence Exam Order Date: 2019 12:01 PM Ordering: Kamaljit Pierce MD Attending:Kamaljit Pierce MD Location:[facility] Comparison: Lumbar MRI 08/15 Procedure: - MRI [...] Signed Report (CONTINUED) FAX: Kamaljit Pierce MD Donna: St: REG -------- Name: DEBORAH AGUERO [facility] : 1955 Age/S: 64/F [address] [facility] Unit #: [id number] Loc: [place] [address] Phys: Kamaljti Rios MD Acct: [id number] Dis Date: Status: REG ER ADAN NE #: [phone] Exam Date: 02/21/2020 1429 FAX #: [phone] Reason: lumbar pain radiating down R leg, urinary incon E XAMS: CPT CODE: [id number] MRI L-SPINE W WO CON 48525 <Continued> CC: Kamaljit Pierce MD Technologist: OLEGARIO METZRT - MRI Trncord Date/Time/By: 02/21/2020 (1553) : By: [email or web address] Orig Print D/T: S: 02/21/2020 (2972) PAGE 2 Signed Report [id number] 15:10:00* Test Item Value Reference Range Interpretation Comments GLUBED (test code = GLUBED) 312 mg/dL 74-106 H Performed by certified chucking and sawing machine operator at [facility] CBC W/AUTO [id number] 13:25:00* Test Item Value Reference Range Interpretation [...] NO Edited by: TIMOTHY on 02/21/20:1252 DIFFERENTIAL [id number] 13:25:00* Test Item Value Reference Range Interpretation Comments STAIN ACCEPTABILITY (test code = STN ACCEPTABLE) STAIN ACCEPTABLE ANISOCYTOSIS (test code = ANISO) 1+ MACROCYTOSIS (test code = MACR) 1+ PLATELET ESTIMATE (test code = PLTEST) DECREASED PLATELET MORPHOLOGY (test code = PLTMORPH) NORMAL URINALYSIS [id number] 13:00:00* Test Item Value Reference Range Interpretation [...] per HPF NONE Urine Source? Clean CatchURINALYSIS [id number] 12:59:00* Test Item Value Reference Range Interpretation [...] HPF NONE Urine Source? Clean CatchBASIC METABOLIC [id number] 12:54:00* Test Item Value Reference Range Interpretation [...] CA) 8.5 mg/dL 8.4-10.2 N CBC W/AUTO [id number] 12:52:00* Test Item Value Reference Range Interpretation [...] (test code = MDIFF) NO CBC W/AUTO [id number] 12:52:00* Test Item Value Reference Range Interpretation [...] NO Edited by: TIMOTHY on 20:1252 DIFFERENTIAL [id number] 12:52:00* Test Item Value Reference Range Interpretation Comments STAIN ACCEPTABILITY (test code = STN ACCEPTABLE) CABOT RINGS (test code = CAB) MORPHOLOGY COMMENT (test code = MOC) PLATELET ESTIMATE (test code = PLTEST) PLATELET MORPHOLOGY (test code = PLTMORPH) CBC W/AUTO [id number] 12:52:00* Test Item Value Reference Range Interpretation [...] NO Edited by: TIMOTHY on 02/21/20:1252 DIFFERENTIAL [id number] 12:52:00* Test Item Value Reference Range Interpretation Comments STAIN ACCEPTABILITY (test code = STN ACCEPTABLE) CABOT RINGS (test code = CAB) MORPHOLOGY COMMENT (test code = MOC) PLATELET ESTIMATE (test code = PLTEST) PLATELET MORPHOLOGY (test code = PLTMORPH) CBC W/AUTO [id number] 12:52:00* Test Item Value Reference Range Interpretation [...] NO Edited by: TIMOTHY on 20:1252 DIFFERENTIAL [id number] 12:52:00* Test Item Value Reference Range Interpretation Comments STAIN ACCEPTABILITY (test code = STN ACCEPTABLE) MORPHOLOGY COMMENT (test code = MOC) PLATELET ESTIMATE (test code = PLTEST) PLATELET MORPHOLOGY (test code = PLTMORPH) CBC W/AUTO [id number] 12:52:00* Test Item Value Reference Range Interpretation [...] NO Edited by: TIMOTHY on 20:1252 DIFFERENTIAL [id number] 12:52:00* Test Item Value Reference Range Interpretation Comments STAIN ACCEPTABILITY (test code = STN ACCEPTABLE) CABOT RINGS (test code = CAB) MORPHOLOGY COMMENT (test code = MOC) PLATELET ESTIMATE (test code = PLTEST) PLATELET MORPHOLOGY (test code = PLTMORPH) - XR CHEST 2 [id number] 13:02:00 Name: DEBORAH AGUERO [facility] : 1955 Age/S:64 /F [address] [facility] Unit#:[id number] Loc: [place] [address] Phys: Ta Pendleton MD Dis Date: PHONE #: [phone] Status: REG ER FAX #: [phone] Exam Date: 02/11/2020 Reason: cough and congestion EXAMS: CPT CODE: [id number] XR CHEST 2 V 48826 HISTORY: Cough and congestion. COMPARISON: November 16, 2015. Location: [facility]. AP and lateral view of the chest: No acute infiltrates, effusion or congestion. Cardiomegaly. IMPRESSION: No acute infiltrates, effusion or congestion. at 1302 Reported and signed by: Weston Nuñez M.D. CC: Ta Pendleton MD Technologist: YENI CHENEY, RT(R),CT Trnscrpt Data: 02/11/2020 (1302) [email or web address] Orig Print D/T: S: 02/11/2020 (1527) PAGE 1 Signed Report COVID 19 INHOUSE [id number] 12:29:00* Test Item Value Reference Range Interpretation Comments COVID 19 INHOUSE AG (test code = [id number]) NEGATIVE CHEST SINGLE (NOT PORTABLE)2020-01-05 11:21:00 [place] [address] Patient Name: DEBORAH AGUERO MR #: [id number] : 1955 Age/Sex: 64/F Req #: [id number] Adm Physician: STROMY RYAN MD Ordered by: JESSICA RAMIREZ MD Report #: [id number] Location: MED/SURG2 Room/Bed: [facility] Procedure: [id number] DX/CHEST SINGLE (NOT PORTABLE) Exam Date: 01/05/20 [...] on 01/05/2020 11:23 AM Dictated By: JESSICA RAMRIEZ MD 112 Transcribed By: CORBIN Young on 01/05/20 112 COPY TO: JESSICA RAMIREZ MD Capillary blood glucose measurement by glucometer (mass/volume)2020-01-05 11:17:00* Test Item Value Reference Range Interpretation Comments Bedside Glucose (test code = 20015-9) 126 70-120 Meter ID: [id number] [facility] EKQHSWM2933-06-86 11:11:00 [facility] [address] [address] Patient Name: DEBORAH AGUERO MR #: [id number] : 1955 Age/Sex: 64/F Req #: [id number] Adm Physician: STORMY RYAN MD Ordered by: HARINDER ZIMMERMAN MD Report #: [id number] Location: [facility] Room/Bed: [facility] Procedure: DX/IR CONSULT Exam Date: Exam Time: [...] care by clinical team. PROCEDURE SUMMARY: - [facility] ultrasound - Ultrasound-guided thoracentesis - Additional procedure(s) [...] sterile bandage was applied. Catheter placed: 5F [place] Post- drainage hemithorax findings: No visible pleural [...] 01/05/201111 COPY TO: HARINDER ZIMMERMAN MD THORACENTESIS/IMAGE [id number] 11:11:[address] [address] Patient Name: DEBORAH AGUERO MR #: [id number] : 1955 Age/Sex: 64/F Req #: [id number] Adm Physician: STORMY RYAN MD Ordered by: HARINDER ZIMMERMAN MD Report #: [id number] Location: MED/SURG2 Room/Bed: [facility] Procedure: [id number] US/THORACENTESIS/IM AGE GUIDED Exam Date: 01/05/20 Exam Time: 1047 REPORT STATUS: Signed PROCEDURE: Ultr asound-guided thoracentesis Procedural Personnel Attending physician(s): Jessica Ramirez MD Fellow physician(s): None Resident physician(s): None Nimesh sorensen practice provider(s): None Pre-procedure diagnosis: Right pleural [...] RAMIREZ MD 111 Transcribed By: LIV on 01/05/20 111 COPY TO: HARINDER ZIMMERMAN MD Specimen source identification of body higno9769-74-62 10:59:00* Test Item Value Reference Range Interpretation Comments Body Fluid Type (test code = 56256-5) PLEURAL [facility] color of body fluid 2020-01-05 10:59:00* Test Item Value Reference Range Interpretation Comments Body Fluid Color (test code = 6824-7) RED [facility] HospitalDetermination of appearance of body fluid 2020-01-05 10:59:00* Test Item Value Reference Range Interpretation Comments Body Fluid Appearance (test code = 9335-1) CLOUDY [facility] body fluid leukocytes count (number/volume)2020-01-05 10:59:00* Test Item Value Reference Range Interpretation Comments Body Fluid WBC (test code = 6743-9) 1100 [facility] body fluid erythrocytes count (number/volume)2020-01-05 10:59:00* Test Item Value Reference Range Interpretation Comments Body Fluid RBC (test code = 6741-3) [address] [facility] HospitalBody fluid lymphocyte izwll3107-76-24 10:59:00* Test Item Value Reference Range Interpretation Comments Body Fluid Lymphocytes (test code = 92363175) [address] [facility] HospitalBody fluid monocyte twmrt1862-35-80 10:59:00* Test Item Value Reference Range Interpretation Comments Body Fluid Monocytes (test code = 95524-5) 19 [facility] fluid other cells manual count 2020-01-05 10:59:00* Test Item Value Reference Range Interpretation Comments Body Fluid Other Cells (test code = 265157852) [address] [facility]Total cell count 2020-01-05 10:59:00* Test Item Value Reference Range Interpretation Comments Body Fluid Total Cells Counted (test code = 74514-2) [address] [facility] HospitalBody fluid sodium measurement (moles/volume)2020-01-05 10:59:00* Test Item Value Reference Range Interpretation Comments Body Fluid Sodium (test code = 2950-4) [address] [facility] HospitalBody fluid potassium measurement (moles/volume)2020-01-05 10:59:00* Test Item Value Reference Range Interpretation Comments Body Fluid Potassium (test code = 2821-7) 3.1 [facility] fluid glucose measurement (mass/volume)2020-01-05 10:59:00* Test Item Value Reference Range Interpretation Comments Body Fluid Glucose (test code = 2344-0) [address] [facility]Body fluid protein measurement (mass/volume)2020-01-05 10:59:00* Test Item Value Reference Range Interpretation Comments Body Fluid Total Protein (test code = 2881-1) 1.[address] [facility] HospitalBody fluid lactate dehydrogenase measurement (enzymatic activity/volume)2020-01-05 10:59:00* Test Item Value Reference Range Interpretation Comments Body Fluid Lactate Dehydrogenase (test code = 971106241) 80 No reference range has been established for this specimen type.[facility] HospitalBlmont[facility] hospital leukocytes automated count (number/volume) 2020-01-05 07:45:00* Test Item Value Reference Range Interpretation Comments White Blood Count (test code = 6690-2) 6.67 4.8-10.[address] [facility] HospitalBl[facility] erythrocytes automated count (number/volume)2020-01-05 07:45:00* Test Item Value Reference Range Interpretation Comments Red Blood Count (test code = 789-8) 3.85 3.6-5.1 [facility] hemoglobin measurement (moles/volume)2020-01-05 07:45:00* Test Item Value Reference Range Interpretation Comments Hemoglobin (test code = 19832-6) 12.4 12.0-16.[address] [facility] HospitalAutomated blood hematocrit (volume fraction)2020-01-05 07:45:00* Test Item Value Reference Range Interpretation Comments Hematocrit (test code = 4544-3) 37.8 34.2-44.[address] [facility] HospitalAutomated erythrocyte mean corpuscular nvvanu2712-22-03 07:45:00* Test Item Value Reference Range Interpretation Comments Mean Corpuscular Volume (test code = 787-2) 98.2 81-[address] [facility] HospitalAutomated erythrocyte mean corpuscular hemoglobin (mass per erythrocyte)2020-01-05 07:45:00* Test Item Value Reference Range Interpretation Comments Mean Corpuscular Hemoglobin (test code = 785-6) 32.2 28-[address] [facility] HospitalAutomated erythrocyte mean corpuscular hemoglobin concentration measurement (mass/volume)2020-01-05 07:45:00* Test Item Value Reference Range Interpretation Comments Mean Corpuscular Hemoglobin Concent (test code = 786-4) 32.8 31-[address] [facility] HospitalRDW IydOm-Xnt8167-05-12 07:45:00* Test Item Value Reference Range Interpretation Comments Red Cell Distribution Width (test code = 89880-0) 16.8 11.7 -14.[address] [facility] HospitalAutomated blood platelet count (count/volume)2020-01-05 07:45:00* Test Item Value Reference Range Interpretation Comments Platelet Count (test code = 777-3) 80 140-[address] [facility] HospitalAutomated blood segmented neutrophil count as percentage of total isdkppebha5078-03-13 07:45:00* Test Item Value Reference Range Interpretation Comments Neutrophils (%) (Auto) (test code = 34205-4) 52.9 38.7-80.[address] [facility] HospitalAutomated blood lymphocyte count as percentage ot total ashubgxult7436-53-87 07:45:00* Test Item Value Reference Range Interpretation Comments Lymphocytes (%) (Auto) (test code = 736-9) 28.6 18.0-39.[address] [facility] HospitalAutomated blood monocyte count as percentage of total asphgautog9804-35-06 07:45:00* Test Item Value Reference Range Interpretation Comments Monocytes (%) (Auto) (test code = 5905-5) 11.8 4.4-11.[address] [facility] HospitalAutomated blood eosinophil count as percentage of total obepxfwhny6596-06-02 07:45:00* Test Item Value Reference Range Interpretation Comments Eosinophils (%) (Auto) (test code = 713-8) 5.2 0.0-6.[address] [facility] HospitalAutomated blood basophil count as percentage of total ubanzdvayu7285-90-37 07:45:00* Test Item Value Reference Range Interpretation Comments Basophils (%) (Auto) (test code = 706-2) 0.9 0.0-1.[address] [facility] HospitalFluoroscopic procedure less than one hour lvuyrlor0105-47-90 07:45:00* Test Item Value Reference Range Interpretation Comments IM GRANULOCYTES % (test code = IM GRANULOCYTES %) 0.6 0.0- 1.[address] [facility] HospitalAutomated blood neutrophil count 2020-01-05 07:45:00* Test Item Value Reference Range Interpretation Comments Neutrophils # (Auto) (test code = 751-8) 3.5 2.1-6.[address] [facility] HospitalBlood lymphocytes count (number/volume) 2020-01-05 07:45:00* Test Item Value Reference Range Interpretation Comments Lymphocytes # (Auto) (test code = 05244-6) 1.9 1.0-3.[address] [facility] HospitalBlood monocytes automated count (number/volume)2020-01-05 07:45:00* Test Item Value Reference Range Interpretation Comments Monocytes # (Auto) (test code = 742-7) 0.8 0.2-0.[address] [facility] HospitalAutomated blood eosinophil count 2020-01-05 07:45:00* Test Item Value Reference Range Interpretation Comments Eosinophils # (Auto) (test code = 711-2) 0.4 0.0-0.[address] [facility] HospitalAutomated blood basophil count (count/volume)2020-01-05 07:45:00* Test Item Value Reference Range Interpretation Comments Basophils # (Auto) (test code = 704-7) 0.1 0.0-0.[address] [facility] HospitalFluoroscopic procedure less than one hour fquvvarg8560-45-94 07:45:00* Test Item Value Reference Range Interpretation Comments Absolute Immature Granulocyte (auto ([place] t code = Absolute Immature Granulocyte (auto) 0.04 0-0.[address] [facility] HospitalProthrombin time (PT) in platelet poor plasma by coagulation hvuyu4847-06-84 07:45:00* Test Item Value Reference Range Interpretation Comments Prothrombin Time (test code = 5902-2) 20.1 11.9-14.[address] [facility] HospitalINR in Platelet poor plasma by Coagulation gvpsu6498-64-09 07:45:00* Test Item Value Reference Range Interpretation Comments Prothromb Time International Ratio (test code = 6301-6) 1.61 Oral Anticoagulant Therapy INR Values:1. Low Intensity Therapy 1.5 - 2.02 . Moderate Intensity Therapy 2.0 - 3.03. High Intensity Therapy(1) 2.5 - 3. 54. High Intensity Therapy(2) 3.0 - 4.05. Panic Value INR > 5.0 [facility] or plasma sodium measurement (moles/volume)2020-01-05 07:45:00* Test Item Value Reference Range Interpretation Comments Sodium Level (test code = 2951-2) 144 136-145 [facility] Centennialerum or plasma potassium measurement (moles/volume)2020-01-05 07:45:00* Test Item Value Reference Range Interpretation Comments Potassium Level (test code = 2823-3) 3.0 3.5-5.1 [facility]ennialerum or plasma chloride measurement (moles/volume)2020-01-05 07:45:00* Test Item Value Reference Range Interpretation Comments Chloride Level (test code = 2075-0) 107 98-107 [facility]ennialerum or plasma carbon dioxide, total measurement (moles/volume)2020-01-05 07:45:00* Test Item Value Reference Range Interpretation Comments Carbon Dioxide Level (test code = 2028-9) 32 22-29 [facility]ennialerum or plasma anion yyb5979-53-82 07:45:00* Test Item Value Reference Range Interpretation Comments Anion Gap (test code = 83117-7) 8.0 8-16 [facility]ennialerum or plasma urea nitrogen measurement (mass/volume)2020-01-05 07:45:00* Test Item Value Reference Range Interpretation Comments Blood Urea Nitrogen (test code = 3094-0) 9 7-26 [facility]ennialerum or plasma creatinine measurement (mass/volume)2020-01-05 07:45:00* Test Item Value Reference Range Interpretation Comments Creatinine (test code = 2160-0) 1.07 0.57-1.11 [facility]ennialerum or plasma urea nitrogen/creatinine mass uhcxl7088-50-39 07:45:00* Test Item Value Reference Range Interpretation Comments BUN/Creatinine Ratio (test code = 3097-3) 8 6-[address] [facility] HospitalEstimated glomerular filtration rate (GFR) irkvqabapcouq8720-07-97 07:45:00* Test Item Value Reference Range Interpretation Comments Estimat Glomerular Filtration Rate (test code = 373958505) 51 >60 Ranges were taken from the National Kidney Disease Education Program and the [facility] Kid[facility] Foundation literature.Reference ranges:60 or greater: Gppbuo94-96 ( for 3 consecutive months): Chronic kidney disease 15 or less: Kidney failureCHI St. [facility] – [facility] HospitalGlucose xqrsctmyezw5355-33-66 07:45:00* Test Item Value Reference Range Interpretation Comments Glucose Level (test code = CDU4613) 65 74-118 [facility]ennialerum or plasma calcium measurement (mass/volume)2020-01-05 07:45:00* Test Item Value Reference Range Interpretation Comments Calcium Level (test code = 91507-6) 8.5 8.4-10.2 [facility]ennialerum or plasma magnesium measurement (mass/volume)2020-01-05 07:45:00* Test Item Value Reference Range Interpretation Comments Magnesium Level (test code = 17703-2) 1.6 1.3-2.[address] [facility] HospitalAmmonia Wru-nHli0273-27-11 09:55:00* Test Item Value Reference Range Interpretation Comments Ammonia (test code = 61368-0) 195 31-123 [facility]ennialerum or plasma total bilirubin measurement (mass/volume)2020-01-04 06:10:00* Test Item Value Reference Range Interpretation Comments Total Bilirubin (test code = 1975-2) 4.0 0.2-1.[address] [facility] HospitalFluoroscopic procedure less than one hour zmdxbaeu1265-92-48 06:10:00* Test Item Value Reference Range Interpretation Comments Aspartate Amino Transf (AST/SGOT) (test code = Aspartate Amino Transf (AST/SGOT)) 28 5-34 [facility]ennial[facility]um or plasma alanine aminotransferase measurement (enzymatic activity/volume)2020-01-04 06:10:00* Test Item Value Reference Range Interpretation Comments Alanine Aminotransferase (ALT/SGPT) (test code = 1742-6) 22 0-55 [facility]ennialerum or plasma protein measurement (mass/volume)2020-01-04 06:10:00* Test Item Value Reference Range Interpretation Comments Total Protein (test code = 2885-2) 6.5 6.5-8.1 [facility]ennial[facility]um or plasma albumin measurement (mass/volume)2020-01-04 06:10:00* Test Item Value Reference Range Interpretation Comments Albumin (test code = 1751-7) 2.1 3.5-5.[address] [facility] HospitalPlasma globulin measurement (mass/volume) 2020-01-04 06:10:00* Test Item Value Reference Range Interpretation Comments Globulin (test code = 88940-6) 4.4 2.3-3.5 [facility]um or plasma albumin/globulin mass mjkxg1184-30-59 06:10:00* Test Item Value Reference Range Interpretation Comments Albumin/Globulin Ratio (test code = 1759-0) 0.5 0.8-2.0 [facility]um or plasma alkaline phosphatase measurement (enzymatic activity/volume)2020-01-04 06:10:00* Test Item Value Reference Range Interpretation Comments Alkaline Phosphatase (test code = 6768-6) 178 40-150 [facility]ennialerum or plasma hepatitis A virus IgM antibody detection by hryqhtdftpq4519-14-63 06:10:00* Test Item Value Reference Range Interpretation Comments Hepatitis A IgM Antibody (test code = 93889-9) Negative Negativ e [facility]ennialerum or plasma hepatitis B virus surface antigen detection by oomimriozdr4012-45-78 06:10:00* Test Item Value Reference Range Interpretation Comments Hepatitis B Surface Antigen (test code = 5196-1) Negative Negat michael [facility]um or plasma hepatitis B virus core IgM antibody detection by ewxoediewbx6201-81-30 06:10:00* Test Item Value Reference Range Interpretation Comments Hepatitis B Core IgM Antibody (test code = 90046-2) Negative Ne gative [facility]ennialerum hepatitis C virus antibody hlriogfzb6112-06-15 06:10:00* Test Item Value Reference Range Interpretation Comments Hepatitis C Antibody (test code = 73389-6) >11.0 0.0-0.9 Negative: < 0.8 Indeterminate: 0.8 - 0.9 Positive: > 0.9 The CDC recommends that a positive HCV antibody result be followed up with a HCV Nucleic Acid Amplification test (232420).Performed at: [address] [id number] Director: Nicholas Nuñez MD, Phone: [phone] St. [facility] HospitalFluoroscopic procedure less than one hour owuiwsjo6593-58-30 15:05:00* Test Item Value Reference Range Interpretation [...] under 564(g) of the ACT.Testing performed by [id number] [place] [address] CHEST T4073-53-56 14:22:00 [facility] [address] [place] [address] Patient Name: DEBORAH AGUERO MR #: [id number] : 1955 Age/Sex: 64/F Req #: [id number] Adm Physician: Ordered by: Kedar Aguilar MD Report #: [id number] Location: ER Room/Bed: Procedure: [id number] CT/CT CHEST W Exam Date: 01/03/20 Exam [...] PM Dicta mal By: JESSICA RAMIREZ MD 1433 Transcribed By: LIV on 01/03/20 1433 COPY TO: KEDAR AGUILAR MD CT ABDOMEN/PELVIS D4639-78-37 14:22:00 [facility] [address] [address] Patient Name: DEBORAH AGUERO MR #: [id number] : 1955 Age/Sex: 64/F Req #: [id number] Adm Physician: Ordered by: Kedar Aguilar MD Report #: [id number] Location: ER Room/Bed: Procedure: [id number] CT/CT ABDOME N/PELVIS W Exam Date: 01/03/20 [...] 01/03/20 1433 COPY TO: KEDAR AGUILAR MD BNP Ajw-wDqk2402-52-10 12:26:00* Test Item Value Reference Range Interpretation Comments B-Type Natriuretic Peptide (test code = 26973-6) 424.2 0-[address] [facility] HospitalTroponin I measurement by highly sensitive enzyme iorhtdpfzma2995-62-59 12:26:00* Test Item Value Reference Range Interpretation Comments Troponin I (test code = 32706-1) 0.007 0-0.[address] [facility] HospitalCapillary blood glucose measurement by glucometer (mass/volume)2019-09-28 11:19:00* Test Item Value Reference Range Interpretation Comments Bedside Glucose (test code = 08175-1) 303 70-120 Meter ID: [id number] [facility] CenterCapillary blood glucose measurement by glucometer (mass/volume)2019-09-28 11:19:00* Test Item Value Reference Range Interpretation Comments Bedside Glucose (test code = 32921-2) 303 70-120 Meter ID: [id number] [facility] CenterCapillary blood glucose measurement by glucometer (mass/volume)2019-09-28 11:19:00* Test Item Value Reference Range Interpretation Comments Bedside Glucose (test code = 90762-6) 303 70-120 Meter ID: [id number] [facility] CenterCHEST SINGLE (PORTABLE)2019-09-28 09:42:00 [address] [address] Patient Name: DEBORAH AGUERO MR #: [id number] : 1955 Age/Sex: 64/F Req #: [id number] Adm Physician: STORMY RYAN MD Ordered by: STORMY RYAN MD Report #: [id number] Location: MED/SURG2 Room/Bed: [facility] [place] Procedure: [id number] DX/CHEST SINGLE ( PORTABLE) Exam Date: 09/28/19 Exam Time: 0520 REPORT STATUS: Signed EXAM: CHEST SIN GLE [...] AM Di ctated By: OLEKSANDR XIONG MD 2 COPY TO: STORMY RYAN MD Blood leukocytes automated count (number/volume)2019-09-28 05:10:00* Test Item Value Reference Range Interpretation Comments White Blood Count (test code = 6690-2) 5.97 4.8-10.[address] [facility] HospitalBlood erythrocytes automated count (number/volume)2019-09-28 05:10:00* Test Item Value Reference Range Interpretation Comments Red Blood Count (test code = 789-8) 3.44 3.6-5.[address] [facility] HospitalBlood hemoglobin measurement (moles/volume)2019-09-28 05:10:00* Test Item Value Reference Range Interpretation Comments Hemoglobin (test code = 90297-5) 11.5 12.0-16.[address] [facility] HospitalAutomated blood hematocrit (volume fraction)2019-09-28 05:10:00* Test Item Value Reference Range Interpretation Comments Hematocrit (test code = 4544-3) 35.1 34.2-44.[address] [facility] HospitalAutomated erythrocyte mean corpuscular ezcivp7340-15-58 05:10:00* Test Item Value Reference Range Interpretation Comments Mean Corpuscular Volume (test code = 787-2) 102.0 81-[address] [facility] HospitalAutomated erythrocyte mean corpuscular hemoglobin (mass per erythrocyte)2019-09-28 05:10:00* Test Item Value Reference Range Interpretation Comments Mean Corpuscular Hemoglobin (test code = 785-6) 33.4 28-[address] [facility] [facility] HospitalAutomated erythrocyte mean corpuscular hemoglobin concentration measurement (mass/volume)2019-09-28 05:10:00* Test Item Value Reference Range Interpretation Comments Mean Corpuscular Hemoglobin Concent (test code = 786-4) 32.8 31-[address] [facility] HospitalRDW JicLg-Dxn8939-83-05 05:10:00* Test Item Value Reference Range Interpretation Comments Red Cell Distribution Width (test code = 29012-6) 15.3 11.7 -14.[address] [facility] HospitalAutomated blood platelet count (count/volume)2019-09-28 05:10:00* Test Item Value Reference Range Interpretation Comments Platelet Count (test code = 777-3) 77 140-[address] [facility] HospitalAutomated blood segmented neutrophil count as percentage of total jgdsfjjzky9582-14-15 05:10:00* Test Item Value Reference Range Interpretation Comments Neutrophils (%) (Auto) (test code = 57721-4) 52.2 38.7-80.0 [facility] blood lymphocyte count as percentage ot total dkrxokeswp9557-63-28 05:10:00* Test Item Value Reference Range Interpretation Comments Lymphocytes (%) (Auto) (test code = 736-9) 29.3 18.0-39.[address] [facility] [facility] HospitalAutomated blood monocyte count as percentage of total tlsgtsdyri6871-14-78 05:10:00* Test Item Value Reference Range Interpretation Comments Monocytes (%) (Auto) (test code = 5905-5) 12.2 4.4-11.[address] [facility] HospitalAutmission [facility] blood eosinophil count as percentage of total vwmyflmxsd2887-49-97 05:10:00* Test Item Value Reference Range Interpretation Comments Eosinophils (%) (Auto) (test code = 713-8) 5.5 0.0-6.[address] [facility] HospitalAutomated blood basophil count as percentage of total wtirxrktez3380-42-49 05:10:00* Test Item Value Reference Range Interpretation Comments Basophils (%) (Auto) (test code = 706-2) 0.5 0.0-1.[address] [facility] HospitalFluoroscopic procedure less than one hour ncmolvoz8551-19-30 05:10:00* Test Item Value Reference Range Interpretation Comments IM GRANULOCYTES % (test code = IM GRANULOCYTES %) 0.3 0.0- 1.[address] [facility] HospitalAutomated blood neutrophil count 2019-09-28 05:10:00* Test Item Value Reference Range Interpretation Comments Neutrophils # (Auto) (test code = 751-8) 3.1 2.1-6.[address] [facility] HospitalBlood lymphocytes count (number/volume) 2019-09-28 05:10:00* Test Item Value Reference Range Interpretation Comments Lymphocytes # (Auto) (test code = 92697-4) 1.8 1.0-3.[address] [facility] HospitalBlood monocytes automated count (number/volume)2019-09-28 05:10:00* Test Item Value Reference Range Interpretation Comments Monocytes # (Auto) (test code = 742-7) 0.7 0.2-0.[address] [facility] HospitalAutomated blood eosinophil count 2019-09-28 05:10:00* Test Item Value Reference Range Interpretation Comments Eosinophils # (Auto) (test code = 711-2) 0.3 0.0-0.[address] [facility] [facility] HospitalAutomated blood basophil count (count/volume)2019-09-28 05:10:00* Test Item Value Reference Range Interpretation Comments Basophils # (Auto) (test code = 704-7) 0.0 0.0-0.[address] [facility] [facility] HospitalFluoroscopic procedure less than one hour [id number] 05:10:00* Test Item Value Reference Range Interpretation Comments Absolute Immature Granulocyte (auto ([place] t code = Absolute Immature Granulocyte (auto) 0.02 0-0.1 [facility] sodium measurement (moles/volume)2019-09-28 05:10:00* Test Item Value Reference Range Interpretation Comments Sodium Level (test code = 2951-2) 138 136-145 [facility] or plasma potassium measurement (moles/volume)2019-09-28 05:10:00* Test Item Value Reference Range Interpretation Comments Potassium Level (test code = 2823-3) 3.4 3.5-5.1 [facility] chloride measurement (moles/volume)2019-09-28 05:10:00* Test Item Value Reference Range Interpretation Comments Chloride Level (test code = 2075-0) 100 98-107 [facility]um or plasma carbon dioxide, total measurement (moles/volume)2019-09-28 05:10:00* Test Item Value Reference Range Interpretation Comments Carbon Dioxide Level (test code = 2028-9) 33 22-29 [facility]erum or plasma anion [id number] 05:10:00* Test Item Value Reference Range Interpretation Comments Anion Gap (test code = 03556-8) 8.4 8-16 [facility] plasma urea nitrogen measurement (mass/volume)2019-09-28 05:10:00* Test Item Value Reference Range Interpretation Comments Blood Urea Nitrogen (test code = 3094-0) 7 7-26 [facility] or plasma creatinine measurement (mass/volume)2019-09-28 05:10:00* Test Item Value Reference Range Interpretation Comments Creatinine (test code = 2160-0) 0.90 0.57-1.11 [facility] or plasma urea nitrogen/creatinine mass [id number] 05:10:00* Test Item Value Reference Range Interpretation Comments BUN/Creatinine Ratio (test code = 3097-3) 8 6-[address] [facility] HospitalEstimated glomerular filtration rate (GFR) jbtahgqtqwngv9646-80-29 05:10:00* Test Item Value Reference Range Interpretation Comments Estimat Glomerular Filtration Rate (test code = 724844037) > 60 >60 Ranges were taken from the National Kidney Disease Education Program and the [place] [employer] [employer] literature.Reference ranges:60 or greater: Oxdshr99-85 ( for 3 consecutive months): Chronic kidney disease 15 or less: Kidney failureCH[facility] St[facility] HospitalGlucose zbzzhikdgql2193-52-78 05:10:00* Test Item Value Reference Range Interpretation Comments Glucose Level (test code = TOW2855) 310 74-118 [facility] or plasma calcium measurement (mass/volume)2019-09-28 05:10:00* Test Item Value Reference Range Interpretation Comments Calcium Level (test code = 26723-9) 8.0 8.4-10.2 [facility] or plasma magnesium measurement (mass/volume)2019-09-28 05:10:00* Test Item Value Reference Range Interpretation Comments Magnesium Level (test code = 96155-6) 1.5 1.3-2.1 [facility] or plasma total bilirubin measurement (mass/volume)2019-09-28 05:10:00* Test Item Value Reference Range Interpretation Comments Total Bilirubin (test code = 1975-2) 3.4 0.2-1.[address] [facility] HospitalFluoroscopic procedure less than one hour bejirwac1433-14-59 05:10:00* Test Item Value Reference Range Interpretation Comments Aspartate Amino Transf (AST/SGOT) (test code = Aspartate Amino Transf (AST/SGOT)) 34 5-34 [facility] or plasma alanine aminotransferase measurement (enzymatic activity/volume)2019-09-28 05:10:00* Test Item Value Reference Range Interpretation Comments Alanine Aminotransferase (ALT/SGPT) (test code = 1742-6) 28 0-55 [facility] or plasma protein measurement (mass/volume)2019-09-28 05:10:00* Test Item Value Reference Range Interpretation Comments Total Protein (test code = 2885-2) 5.8 6.5-8.1 [facility] or plasma albumin measurement (mass/volume)2019-09-28 05:10:00* Test Item Value Reference Range Interpretation Comments Albumin (test code = 1751-7) 1.9 3.5-5.[address] HospitalPlasma globulin measurement (mass/volume) 2019-09-28 05:10:00* Test Item Value Reference Range Interpretation Comments Globulin (test code = 91432-1) 3.9 2.3-3.5 [facility] or plasma albumin/globulin mass avyvn9210-13-12 05:10:00* Test Item Value Reference Range Interpretation Comments Albumin/Globulin Ratio (test code = 1759-0) 0.5 0.8-2.0 [facility] or plasma alkaline phosphatase measurement (enzymatic activity/volume)2019-09-28 05:10:00* Test Item Value Reference Range Interpretation Comments Alkaline Phosphatase (test code = 6768-6) 205 40-[address] [facility] HospitalBlmonticello hospital leukocytes automated count (number/volume)2019-09-28 05:10:00* Test Item Value Reference Range Interpretation Comments White Blood Count (test code = 6690-2) 5.97 4.8-10.[address] [facility] HospitalBlmonticello hospital erythrocytes automated count (number/volume)2019-09-28 05:10:00* Test Item Value Reference Range Interpretation Comments Red Blood Count (test code = 789-8) 3.44 3.6-5.1 [facility] (moles/volume)2019-09-28 05:10:00* Test Item Value Reference Range Interpretation Comments Hemoglobin (test code = 79823-7) 11.5 12.0-16.[address] HospitalAutmission hospital [facility] blood hematocrit (volume fraction)2019-09-28 05:10:00* Test Item Value Reference Range Interpretation Comments Hematocrit (test code = 4544-3) 35.1 34.2-44.[address] [facility] HospitalAutomated erythrocyte mean corpuscular fmpkat1433-55-79 05:10:00* Test Item Value Reference Range Interpretation Comments Mean Corpuscular Volume (test code = 787-2) 102.0 81-[address] [address] [facility] HospitalAutomated erythrocyte mean corpuscular hemoglobin (mass per erythrocyte)2019-09-28 05:10:00* Test Item Value Reference Range Interpretation Comments Mean Corpuscular Hemoglobin (test code = 785-6) 33.4 28-[address] [facility] HospitalAutomated erythrocyte mean corpuscular hemoglobin concentration measurement (mass/volume)2019-09-28 05:10:00* Test Item Value Reference Range Interpretation Comments Mean Corpuscular Hemoglobin Concent (test code = 786-4) 32.8 31-[address] [facility] HospitalRDW QvuOp-Zic6831-10-05 05:10:00* Test Item Value Reference Range Interpretation Comments Red Cell Distribution Width (test code = 34130-3) 15.3 11.7 -14.[address] HospitalAutomated blood platelet count (count/volume)2019-09-28 05:10:00* Test Item Value Reference Range Interpretation Comments Platelet Count (test code = 777-3) 77 140-[address] HospitalAutomated blood segmented neutrophil count as percentage of total chwzjrzsez3099-61-27 05:10:00* Test Item Value Reference Range Interpretation Comments Neutrophils (%) (Auto) (test code = 16802-5) 52.2 38.7-80.[address] HospitalAutomated blood lymphocyte count as percentage ot total uybqcvodpm9076-98-68 05:10:00* Test Item Value Reference Range Interpretation Comments Lymphocytes (%) (Auto) (test code = 736-9) 29.3 18.0-39.[address] HospitalAutomated blood monocyte count as percentage of total nnmgmaqcje8498-38-45 05:10:00* Test Item Value Reference Range Interpretation Comments Monocytes (%) (Auto) (test code = 5905-5) 12.2 4.4-11.[address] HospitalAutomated blood eosinophil count as percentage of total ypzwxhproo7433-97-10 05:10:00* Test Item Value Reference Range Interpretation Comments Eosinophils (%) (Auto) (test code = 713-8) 5.5 0.0-6.[address] HospitalAutomated blood basophil count as percentage of total vowrhfecnc8985-23-00 05:10:00* Test Item Value Reference Range Interpretation Comments Basophils (%) (Auto) (test code = 706-2) 0.5 0.0-1.[address] HospitalFluoroscopic procedure less than one hour fjozlpcp0949-82-83 05:10:00* Test Item Value Reference Range Interpretation Comments IM GRANULOCYTES % (test code = IM GRANULOCYTES %) 0.3 0.0- 1.[address] HospitalAutomated blood neutrophil count 2019-09-28 05:10:00* Test Item Value Reference Range Interpretation Comments Neutrophils # (Auto) (test code = 751-8) 3.1 2.1-6.[address] [address] [facility] HospitalBlood lymphocytes count (number/volume) 2019-09-28 05:10:00* Test Item Value Reference Range Interpretation Comments Lymphocytes # (Auto) (test code = 34332-6) 1.8 1.0-3.[address] [address] [facility] HospitalBlood monocytes automated count (number/volume)2019-09-28 05:10:00* Test Item Value Reference Range Interpretation Comments Monocytes # (Auto) (test code = 742-7) 0.7 0.2-0.[address] HospitalAutomated blood eosinophil count 2019-09-28 05:10:00* Test Item Value Reference Range Interpretation Comments Eosinophils # (Auto) (test code = 711-2) 0.3 0.0-0.[address] [facility] HospitalAutomated blood basophil count (count/volume)2019-09-28 05:10:00* Test Item Value Reference Range Interpretation Comments Basophils # (Auto) (test code = 704-7) 0.0 0.0-0.[address] HospitalFluoroscopic procedure less than one hour wkuwxnpn2560-86-33 05:10:00* Test Item Value Reference Range Interpretation Comments Absolute Immature Granulocyte (auto ([place] t code = Absolute Immature Granulocyte (auto) 0.02 0-0.1 [facility] or plasma sodium measurement (moles/volume)2019-09-28 05:10:00* Test Item Value Reference Range Interpretation Comments Sodium Level (test code = 2951-2) 138 136-145 [facility] or plasma potassium measurement (moles/volume)2019-09-28 05:10:00* Test Item Value Reference Range Interpretation Comments Potassium Level (test code = 2823-3) 3.4 3.5-5.1 [facility] or plasma chloride measurement (moles/volume)2019-09-28 05:10:00* Test Item Value Reference Range Interpretation Comments Chloride Level (test code = 2075-0) 100 98-107 [facility] or plasma carbon dioxide, total measurement (moles/volume)2019-09-28 05:10:00* Test Item Value Reference Range Interpretation Comments Carbon Dioxide Level (test code = 2028-9) 33 22-29 [facility] or plasma anion nbs1088-72-08 05:10:00* Test Item Value Reference Range Interpretation Comments Anion Gap (test code = 06951-3) 8.4 8-16 [facility] or plasma urea nitrogen measurement (mass/volume)2019-09-28 05:10:00* Test Item Value Reference Range Interpretation Comments Blood Urea Nitrogen (test code = 3094-0) 7 7-26 [facility] or plasma creatinine measurement (mass/volume)2019-09-28 05:10:00* Test Item Value Reference Range Interpretation Comments Creatinine (test code = 2160-0) 0.90 0.57-1.11 [facility] or plasma urea nitrogen/creatinine mass zvewj5317-09-32 05:10:00* Test Item Value Reference Range Interpretation Comments BUN/Creatinine Ratio (test code = 3097-3) 8 6-[address] [facility] HospitalEstimated glomerular filtration rate (GFR) ruotdffgziwmu1458-18-27 05:10:00* Test Item Value Reference Range Interpretation Comments Estimat Glomerular Filtration Rate (test code = 721402475) > 60 >60 Ranges were taken from the National Kidney Disease Education Program and the [place] [employer] [facility] [employer] literature.Reference ranges:60 or greater: Qlpgff06-26 ( for 3 consecutive months): Chronic kidney disease 15 or less: Kidney failureCH[facility] HospitalGlucose ijoauiivvtb3890-70-65 05:10:00* Test Item Value Reference Range Interpretation Comments Glucose Level (test code = BMI2098) 310 74-118 [facility] or plasma calcium measurement (mass/volume)2019-09-28 05:10:00* Test Item Value Reference Range Interpretation Comments Calcium Level (test code = 39963-4) 8.0 8.4-10.2 [facility] or plasma magnesium measurement (mass/volume)2019-09-28 05:10:00* Test Item Value Reference Range Interpretation Comments Magnesium Level (test code = 64055-5) 1.5 1.3-2.1 [facility] or plasma total bilirubin measurement (mass/volume)2019-09-28 05:10:00* Test Item Value Reference Range Interpretation Comments Total Bilirubin (test code = 1975-2) 3.4 0.2-1.[address] [address] [facility] HospitalFluoroscopic procedure less than one hour lbfhogzn1340-80-10 05:10:00* Test Item Value Reference Range Interpretation Comments Aspartate Amino Transf (AST/SGOT) (test code = Aspartate Amino Transf (AST/SGOT)) 34 5-34 [facility] or plasma alanine aminotransferase measurement (enzymatic activity/volume)2019-09-28 05:10:00* Test Item Value Reference Range Interpretation Comments Alanine Aminotransferase (ALT/SGPT) (test code = 1742-6) 28 0-55 [facility] or plasma protein measurement (mass/volume)2019-09-28 05:10:00* Test Item Value Reference Range Interpretation Comments Total Protein (test code = 2885-2) 5.8 6.5-8.1 [facility] or plasma albumin measurement (mass/volume)2019-09-28 05:10:00* Test Item Value Reference Range Interpretation Comments Albumin (test code = 1751-7) 1.9 3.5-5.[address] [address] HospitalPlasma globulin measurement (mass/volume) 2019-09-28 05:10:00* Test Item Value Reference Range Interpretation Comments Globulin (test code = 01623-9) 3.9 2.3-3.5 [facility] or plasma albumin/globulin mass jcxml3248-07-45 05:10:00* Test Item Value Reference Range Interpretation Comments Albumin/Globulin Ratio (test code = 1759-0) 0.5 0.8-2.0 [facility] or plasma alkaline phosphatase measurement (enzymatic activity/volume)2019-09-28 05:10:00* Test Item Value Reference Range Interpretation Comments Alkaline Phosphatase (test code = 6768-6) 205 40-[address] [address] [facility] HospitalBlood leukocytes automated count (number/volume)2019-09-28 05:10:00* Test Item Value Reference Range Interpretation Comments White Blood Count (test code = 6690-2) 5.97 4.8-10.[address] [facility] HospitalBlood erythrocytes automated count (number/volume)2019-09-28 05:10:00* Test Item Value Reference Range Interpretation Comments Red Blood Count (test code = 789-8) 3.44 3.6-5.1 [facility] hemoglobin measurement (moles/volume)2019-09-28 05:10:00* Test Item Value Reference Range Interpretation Comments Hemoglobin (test code = 00859-2) 11.5 12.0-16.[address] HospitalAutomated blood hematocrit (volume fraction)2019-09-28 05:10:00* Test Item Value Reference Range Interpretation Comments Hematocrit (test code = 4544-3) 35.1 34.2-44.[address] HospitalAutomated erythrocyte mean corpuscular jronzk8431-13-23 05:10:00* Test Item Value Reference Range Interpretation Comments Mean Corpuscular Volume (test code = 787-2) 102.0 81-[address] HospitalAutomated erythrocyte mean corpuscular hemoglobin (mass per erythrocyte)2019-09-28 05:10:00* Test Item Value Reference Range Interpretation Comments Mean Corpuscular Hemoglobin (test code = 785-6) 33.4 28-[address] [facility] HospitalAutomat erythrocyte mean corpuscular hemoglobin concentration measurement (mass/volume)2019-09-28 05:10:00* Test Item Value Reference Range Interpretation Comments Mean Corpuscular Hemoglobin Concent (test code = 786-4) 32.8 31-[address] [facility] HospitalRD ThcYr-Wwg9423-77-05 05:10:00* Test Item Value Reference Range Interpretation Comments Red Cell Distribution Width (test code = 40155-3) 15.3 11.7 -14.[address] HospitalAutgood hope hospitaled blood platelet count (count/volume)2019-09-28 05:10:00* Test Item Value Reference Range Interpretation Comments Platelet Count (test code = 777-3) 77 140-360 [facility] neutrophil count as percentage of total jqoynwvvex7043-96-85 05:10:00* Test Item Value Reference Range Interpretation Comments Neutrophils (%) (Auto) (test code = 65924-9) 52.2 38.7-80.[address] HospitalAutomated blood lymphocyte count as percentage ot total qmkhvvcioa0190-55-87 05:10:00* Test Item Value Reference Range Interpretation Comments Lymphocytes (%) (Auto) (test code = 736-9) 29.3 18.0-39.[address] HospitalAutomated blood monocyte count as percentage of total hdtgetojwu1546-84-99 05:10:00* Test Item Value Reference Range Interpretation Comments Monocytes (%) (Auto) (test code = 5905-5) 12.2 4.4-11.[address] HospitalAutomated blood eosinophil count as percentage of total ohtwqyacyl3790-02-29 05:10:00* Test Item Value Reference Range Interpretation Comments Eosinophils (%) (Auto) (test code = 713-8) 5.5 0.0-6.[address] HospitalAutomated blood basophil count as percentage of total annmzktbps3514-09-86 05:10:00* Test Item Value Reference Range Interpretation Comments Basophils (%) (Auto) (test code = 706-2) 0.5 0.0-1.[address] HospitalFluoroscopic procedure less than one hour qsmhndbx4699-87-25 05:10:00* Test Item Value Reference Range Interpretation Comments IM GRANULOCYTES % (test code = IM GRANULOCYTES %) 0.3 0.0- 1.[address] [facility] HospitalAutomated blood neutrophil count 2019-09-28 05:10:00* Test Item Value Reference Range Interpretation Comments Neutrophils # (Auto) (test code = 751-8) 3.1 2.1-6.[address] HospitalBlood lymphocytes count (number/volume) 2019-09-28 05:10:00* Test Item Value Reference Range Interpretation Comments Lymphocytes # (Auto) (test code = 06769-8) 1.8 1.0-3.[address] HospitalBlood monocytes automated count (number/volume)2019-09-28 05:10:00* Test Item Value Reference Range Interpretation Comments Monocytes # (Auto) (test code = 742-7) 0.7 0.2-0.[address] HospitalAutomated blood eosinophil count 2019-09-28 05:10:00* Test Item Value Reference Range Interpretation Comments Eosinophils # (Auto) (test code = 711-2) 0.3 0.0-0.[address] [facility] HospitalAutomated blood basophil count (count/volume)2019-09-28 05:10:00* Test Item Value Reference Range Interpretation Comments Basophils # (Auto) (test code = 704-7) 0.0 0.0-0.[address] HospitalFluoroscopic procedure less than one hour dtykfzrd8733-90-61 05:10:00* Test Item Value Reference Range Interpretation Comments Absolute Immature Granulocyte (auto ([place] t code = Absolute Immature Granulocyte (auto) 0.02 0-0.1 [facility] or plasma sodium measurement (moles/volume)2019-09-28 05:10:00* Test Item Value Reference Range Interpretation Comments Sodium Level (test code = 2951-2) 138 136-145 [facility]ennialerum or plasma potassium measurement (moles/volume)2019-09-28 05:10:00* Test Item Value Reference Range Interpretation Comments Potassium Level (test code = 2823-3) 3.4 3.5-5.1 [facility] or plasma chloride measurement (moles/volume)2019-09-28 05:10:00* Test Item Value Reference Range Interpretation Comments Chloride Level (test code = 2075-0) 100 98-107 [facility]ennialerum or plasma carbon dioxide, total measurement (moles/volume)2019-09-28 05:10:00* Test Item Value Reference Range Interpretation Comments Carbon Dioxide Level (test code = 2028-9) 33 22-29 [facility]ennialerum or plasma anion hei3927-19-85 05:10:00* Test Item Value Reference Range Interpretation Comments Anion Gap (test code = 41918-2) 8.4 8-16 [facility]erum or plasma urea nitrogen measurement (mass/volume)2019-09-28 05:10:00* Test Item Value Reference Range Interpretation Comments Blood Urea Nitrogen (test code = 3094-0) 7 - [facility]um or plasma creatinine measurement (mass/volume)2019-09-28 05:10:00* Test Item Value Reference Range Interpretation Comments Creatinine (test code = 2160-0) 0.90 0.57-1.11 [facility]ennialerum or plasma urea nitrogen/creatinine mass oyypw2478-62-40 05:10:00* Test Item Value Reference Range Interpretation Comments BUN/Creatinine Ratio (test code = 3097-3) 8 11-[address] HospitalEstimated glomerular filtration rate (GFR) cblafvetvioav0950-86-50 05:10:00* Test Item Value Reference Range Interpretation Comments Estimat Glomerular Filtration Rate (test code = 960308689) > 60 >60 Ranges were taken from the National Kidney Disease Education Program and the [facility] Foundation literature.Reference ranges:60 or greater: Liouyz94-82 ( for 3 consecutive months): Chronic kidney disease 15 or less: Kidney failureCH[facility] HospitalGlucose jhdjbmfxqxn5727-83-41 05:10:00* Test Item Value Reference Range Interpretation Comments Glucose Level (test code = HPR9516) 310 74-118 [facility] or plasma calcium measurement (mass/volume)2019-09-28 05:10:00* Test Item Value Reference Range Interpretation Comments Calcium Level (test code = 09641-3) 8.0 8.4-10.2 [facility]erum or plasma magnesium measurement (mass/volume)2019-09-28 05:10:00* Test Item Value Reference Range Interpretation Comments Magnesium Level (test code = 03810-2) 1.5 1.3-2.1 [facility]um or plasma total bilirubin measurement (mass/volume)2019-09-28 05:10:00* Test Item Value Reference Range Interpretation Comments Total Bilirubin (test code = 1975-2) 3.4 0.2-1.[address] [facility] HospitalFluoroscopic procedure less than one hour avzlythu1052-86-73 05:10:00* Test Item Value Reference Range Interpretation Comments Aspartate Amino Transf (AST/SGOT) (test code = Aspartate Amino Transf (AST/SGOT)) 34 5-34 [facility] or plasma alanine aminotransferase measurement (enzymatic activity/volume)2019-09-28 05:10:00* Test Item Value Reference Range Interpretation Comments Alanine Aminotransferase (ALT/SGPT) (test code = 1742-6) 28 0-55 [facility] or plasma protein measurement (mass/volume)2019-09-28 05:10:00* Test Item Value Reference Range Interpretation Comments Total Protein (test code = 2885-2) 5.8 6.5-8.1 [facility] or plasma albumin measurement (mass/volume)2019-09-28 05:10:00* Test Item Value Reference Range Interpretation Comments Albumin (test code = 1751-7) 1.9 3.5-5.[address] HospitalPlasma globulin measurement (mass/volume) 2019-09-28 05:10:00* Test Item Value Reference Range Interpretation Comments Globulin (test code = 11714-9) 3.9 2.3-3.5 [facility] or plasma albumin/globulin mass swemz5169-10-02 05:10:00* Test Item Value Reference Range Interpretation Comments Albumin/Globulin Ratio (test code = 1759-0) 0.5 0.8-2.0 [facility]ennialerum or plasma alkaline phosphatase measurement (enzymatic activity/volume)2019-09-28 05:10:00* Test Item Value Reference Range Interpretation Comments Alkaline Phosphatase (test code = 6768-6) 205 40-[address] [facility] [facility] [facility] [id number] 16:14:00 [place] [address] Patient Name: DEBORAH AGUERO MR #: [id number] : 1955 Age/Sex: 64/F Req #: [id number] Adm Physician: STORMY RYAN MD Ordered by: ALEX JOSEPH MD Report #: [id number] Location: MED/SURG2 Room/Bed: Procedure: [id number] US/US ABDOMEN TARI CHUNMegan Exam Date: 09/27/19 Exam Time: 1539 REPORT [...] 4:15 PM Dictated By: JESSICA RAMIREZ MD 14 Transcribed By: KORI MCNEILL on 09/27/19 161 COPY TO: ALEX JOSEPH MD CHEST SINGLE (PORTABLE)2019-09-27 06:36:00 [place] [address] Patient Name: DEBORAH AGUERO MR #: [id number] : 1955 Age/Sex: 64/F Req #: [id number] Adm Physician: STORMY RYAN MD Ordered by: STORMY RYAN MD Report #: [id number] Location: MED/SURG2 Room/Bed: Procedure: [id number] DX/CHEST SINGLE ( PORTABLE) Exam Date: 09/27/19 [...] on 09/27/2019 6:37 AM Dict ated By: FORTUANTO ARRIOLA MD 6 COPY TO: STORMY RYAN MD CHEST SINGLE (PORTABLE)2019-09-26 06:20:00 [place] [address] Patient Name: DEBORAH AGUERO MR #: [id number] : 1955 Age/Sex: 64/F Req #: [id number] Adm Physician: STORMY RYAN MD Ordered by: STORMY RYAN MD Report #: [id number] Location: MED/SURG2 Room/Bed: [facility] [place] Procedure: [id number] DX/CHEST SINGLE ( PORTABLE) Exam Date: 09/26/19 [...] COPY TO: STORMY RYAN MD CT ABDOMEN/PELVIS [id number] 14:21:00 [place] [address] Patient Name: DEBORAH AGUERO MR #: [id number] : 1955 Age/Sex: 64/F Req #: [id number] Adm Physician: Ordered by: ADONIS MATHEW Report #: [id number] Location: ER Room/Bed: Procedure: [id number] CT/CT ABDOMEN/PEL VIS W Exam Date: 09/25/19 [...] 1430 COPY TO: ADONIS MATHEW CT CHEST [id number] 14:08:00 [place] [address] Patient Name: DEBORAH AGUERO MR #: [id number] : 1955 Age/Sex: 64/F Req #: [id number] Adm Physician: Ordered by: ADONIS MATHEW Report #: [id number] Location: ER Room/Bed: Procedure: [id number] CT/CT CHEST W Ex am Date: 09/25/19 [...] 2:19 PM Dictated By: MIKE SANTANA MD 141 Transcri bed By: LIV on 09/25/19 141 COPY TO: ADONIS MATHEW CHEST SINGLE (PORTABLE)2019-09-25 11:21:00 [place] [address] Patient Name: DEBORAH AGUERO MR #: [id number] : 1955 Age/Sex: 64/F Req #: [id number] Adm Physician: Ordered by: ADONIS MATHEW Report #: [id number] Location: ER Room/Bed: Procedure: [id number] DX/CHEST SINGLE ( PORTABLE) Exam Date: 09/25/19 [...] 1128 COPY TO: ADONIS MATHEW Urine color pshkbqhgojgvw8301-25-64 11:17:00* Test Item Value Reference Range Interpretation Comments Urine Color (test code = 5778-6) YELLOW YELLOW [facility] xyyfjvf0769-43-62 11:17:00* Test Item Value Reference Range Interpretation Comments Urine Clarity (test code = 15972-1) CLEAR CLEAR [facility] gravity of Urine by Test strip 2019-09-25 11:17:00* Test Item Value Reference Range Interpretation Comments Urine Specific [place] (test code = 5811-5) 1.025 1.010-1.[address] [facility] HospitalUrine pH measurement by automated test jwcaa7504-16-02 11:17:00* Test Item Value Reference Range Interpretation Comments Urine pH (test code = 03209-9) 6.5 5-[address] HospitalUrine leukocyte esterase detection by qfpbqkpe9054-81-10 11:17:00* Test Item Value Reference Range Interpretation Comments Urine Leukocyte Esterase (test code = 5799-2) NEGATIVE NEGATIVE [facility] HospitalUrine nitrite ocjhrzphi1663-26-02 11:17:00* Test Item Value Reference Range Interpretation Comments Urine Nitrite (test code = 53179-8) NEGATIVE NEGATIVE [facility] HospitalU[facility] protein measurement by test strip (mass/volume)2019-09-25 11:17:00* Test Item Value Reference Range Interpretation Comments Urine Protein (test code = 5804-0) NEGATIVE NEGATIVE [facility] HospitalUrine glucose eahjfqbjx1826-89-99 11:17:00* Test Item Value Reference Range Interpretation Comments Urine Glucose (UA) (test code = 2349-9) 2+ NEGATIVE [facility] HospitalUrine ketones detection by automated test iohkr7861-51-18 11:17:00* Test Item Value Reference Range Interpretation Comments Urine Ketones (test code = 35051-8) NEGATIVE NEGATIVE [facility] HospitalUrine urobilinogen measurement by test strip (mass/volume)2019-09-25 11:17:00* Test Item Value Reference Range Interpretation Comments Urine Urobilinogen (test code = 52860-5) 0.2 0.2-[address] HospitalUrine total bilirubin measurement (mass/volume)2019-09-25 11:17:00* Test Item Value Reference Range Interpretation Comments Urine Bilirubin (test code = 1978-6) NEGATIVE NEGATIVE [facility] HospitalUrine erythrocytes qqcymzrbn1514-84-88 11:17:00* Test Item Value Reference Range Interpretation Comments Urine Blood (test code = 46047-6) TRACE NEGATIVE [facility] HospitalAutomated urine sediment leukocyte count by microscopy (number/high power field)2019-09-25 11:17:00* Test Item Value Reference Range Interpretation Comments Urine WBC (test code = 5821-4) 0-5 0-[address] HospitalErythrocytes detection in urine sediment by light bygfkdayzd1635-16-75 11:17:00* Test Item Value Reference Range Interpretation Comments Urine RBC (test code = 05572-4) 0-5 0-[address] HospitalBacteria detection in urine sediment by light ubyscmenav5079-40-39 11:17:00* Test Item Value Reference Range Interpretation Comments Urine Bacteria (test code = 39282-8) FEW NONE [facility] HospitalEpithelial cells detection in urine sediment by light tapjuktsle0189-08-33 11:17:00* Test Item Value Reference Range Interpretation Comments Urine Epithelial Cells (test code = 71874-2) FEW NONE [facility] HospitalUrine color fpnektedbvkym4162-73-36 11:17:00* Test Item Value Reference Range Interpretation Comments Urine Color (test code = 5778-6) YELLOW YELLOW [facility] HospitalUrine ehcjrur1124-48-07 11:17:00* Test Item Value Reference Range Interpretation Comments Urine Clarity (test code = 42401-4) CLEAR CLEAR [facility] of Urine by Test strip 2019-09-25 11:17:00* Test Item Value Reference Range Interpretation Comments Urine Specific [place] (test code = 5811-5) 1.025 1.010-1.[address] [facility] HospitalUrine pH measurement by automated test twdde0732-10-87 11:17:00* Test Item Value Reference Range Interpretation Comments Urine pH (test code = 25875-2) 6.5 5-[address] [facility] [facility] HospitalUrine leukocyte esterase detection by ymmrkrbt8322-03-67 11:17:00* Test Item Value Reference Range Interpretation Comments Urine Leukocyte Esterase (test code = 5799-2) NEGATIVE NEGATIVE [facility] HospitalUrine nitrite gzoskrqrq3410-20-66 11:17:00* Test Item Value Reference Range Interpretation Comments Urine Nitrite (test code = 31834-1) NEGATIVE NEGATIVE [facility] HospitalUrine protein measurement by test strip (mass/volume)2019-09-25 11:17:00* Test Item Value Reference Range Interpretation Comments Urine Protein (test code = 5804-0) NEGATIVE NEGATIVE [facility] HospitalUrine glucose jankpkpdr6649-19-89 11:17:00* Test Item Value Reference Range Interpretation Comments Urine Glucose (UA) (test code = 2349-9) 2+ NEGATIVE [facility] HospitalUrine ketones detection by automated test tfrvp9472-16-60 11:17:00* Test Item Value Reference Range Interpretation Comments Urine Ketones (test code = 61835-3) NEGATIVE NEGATIVE [facility] HospitalUrine urobilinogen measurement by test strip (mass/volume)2019-09-25 11:17:00* Test Item Value Reference Range Interpretation Comments Urine Urobilinogen (test code = 84367-8) 0.2 0.2-[address] HospitalUrine total bilirubin measurement (mass/volume)2019-09-25 11:17:00* Test Item Value Reference Range Interpretation Comments Urine Bilirubin (test code = 1978-6) NEGATIVE NEGATIVE [facility] HospitalUrine erythrocytes bmyuberyr3584-80-50 11:17:00* Test Item Value Reference Range Interpretation Comments Urine Blood (test code = 30148-5) TRACE NEGATIVE [facility] HospitalAutomated urine sediment leukocyte count by microscopy (number/high power field)2019-09-25 11:17:00* Test Item Value Reference Range Interpretation Comments Urine WBC (test code = 5821-4) 0-5 0-[address] [facility] HospitalErythrocytes detection in urine sediment by light nynkvgplin9204-90-91 11:17:00* Test Item Value Reference Range Interpretation Comments Urine RBC (test code = 12547-6) 0-5 0-[address] [facility] HospitalBacteria detection in urine sediment by light nlajwcoxih4638-03-16 11:17:00* Test Item Value Reference Range Interpretation Comments Urine Bacteria (test code = 45612-5) FEW NONE [facility] HospitalEpithelial cells detection in urine sediment by light ptbaalceow5510-06-34 11:17:00* Test Item Value Reference Range Interpretation Comments Urine Epithelial Cells (test code = 39544-1) FEW NONE [facility] HospitalUrine color lywzwsckmthus6882-14-55 11:17:00* Test Item Value Reference Range Interpretation Comments Urine Color (test code = 5778-6) YELLOW YELLOW [facility] HospitalUrine mgckuxt2456-66-68 11:17:00* Test Item Value Reference Range Interpretation Comments Urine Clarity (test code = 32998-1) CLEAR CLEAR [facility] gravity of Urine by Test strip 2019-09-25 11:17:00* Test Item Value Reference Range Interpretation Comments Urine Specific [place] (test code = 5811-5) 1.025 1.010-1.[address] [facility] [facility] HospitalUrine pH measurement by automated test xdpes5037-75-36 11:17:00* Test Item Value Reference Range Interpretation Comments Urine pH (test code = 79870-9) 6.5 5-[address] [facility] HospitalUrine leukocyte esterase detection by bortelun0552-17-23 11:17:00* Test Item Value Reference Range Interpretation Comments Urine Leukocyte Esterase (test code = 5799-2) NEGATIVE NEGATIVE [facility] HospitalUrine nitrite fuuubdwer4804-34-30 11:17:00* Test Item Value Reference Range Interpretation Comments Urine Nitrite (test code = 54100-6) NEGATIVE NEGATIVE [facility] HospitalUrine protein measurement by test strip (mass/volume)2019-09-25 11:17:00* Test Item Value Reference Range Interpretation Comments Urine Protein (test code = 5804-0) NEGATIVE NEGATIVE [facility] HospitalUrine glucose fcehseqwq1238-32-37 11:17:00* Test Item Value Reference Range Interpretation Comments Urine Glucose (UA) (test code = 2349-9) 2+ NEGATIVE [facility] HospitalUrine ketones detection by automated test hefih6319-70-77 11:17:00* Test Item Value Reference Range Interpretation Comments Urine Ketones (test code = 90275-3) NEGATIVE NEGATIVE [facility] HospitalUrine urobilinogen measurement by test strip (mass/volume)2019-09-25 11:17:00* Test Item Value Reference Range Interpretation Comments Urine Urobilinogen (test code = 76183-7) 0.2 0.2-[address] HospitalUrine total bilirubin measurement (mass/volume)2019-09-25 11:17:00* Test Item Value Reference Range Interpretation Comments Urine Bilirubin (test code = 1978-6) NEGATIVE NEGATIVE [facility] HospitalUrine erythrocytes vzhtygjit1386-14-41 11:17:00* Test Item Value Reference Range Interpretation Comments Urine Blood (test code = 20470-2) TRACE NEGATIVE [facility] HospitalAutomated urine sediment leukocyte count by microscopy (number/high power field)2019-09-25 11:17:00* Test Item Value Reference Range Interpretation Comments Urine WBC (test code = 5821-4) 0-5 0-[address] [facility] HospitalErythrocytes detection in urine sediment by light qvuuumirwm7201-29-19 11:17:00* Test Item Value Reference Range Interpretation Comments Urine RBC (test code = 01858-3) 0-5 0-[address] HospitalBacteria detection in urine sediment by light kkugddcgip5318-94-96 11:17:00* Test Item Value Reference Range Interpretation Comments Urine Bacteria (test code = 17806-4) FEW NONE [facility] HospitalEpithelial cells detection in urine sediment by light clhjgyypwt1044-75-98 11:17:00* Test Item Value Reference Range Interpretation Comments Urine Epithelial Cells (test code = 89349-1) FEW NONE [facility] HospitalUrine color lcdlyzyyecczk7507-89-07 11:17:00* Test Item Value Reference Range Interpretation Comments Urine Color (test code = 5778-6) YELLOW YELLOW [facility] HospitalUrine bkbxpbo2532-37-42 11:17:00* Test Item Value Reference Range Interpretation Comments Urine Clarity (test code = 95713-8) CLEAR CLEAR [facility] gravity of Urine by Test strip 2019-09-25 11:17:00* Test Item Value Reference Range Interpretation Comments Urine Specific [place] (test code = 5811-5) 1.025 1.010-1.[address] HospitalUrine pH measurement by automated test xamiz0201-78-91 11:17:00* Test Item Value Reference Range Interpretation Comments Urine pH (test code = 86129-0) 6.5 5-[address] HospitalUrine leukocyte esterase detection by ovnaezgg5176-81-35 11:17:00* Test Item Value Reference Range Interpretation Comments Urine Leukocyte Esterase (test code = 5799-2) NEGATIVE NEGATIVE [facility] HospitalUrine nitrite jdjxxotmh4119-63-02 11:17:00* Test Item Value Reference Range Interpretation Comments Urine Nitrite (test code = 61086-7) NEGATIVE NEGATIVE [facility] HospitalUrine protein measurement by test strip (mass/volume)2019-09-25 11:17:00* Test Item Value Reference Range Interpretation Comments Urine Protein (test code = 5804-0) NEGATIVE NEGATIVE [facility] HospitalUrine glucose kepiiogyv4919-53-76 11:17:00* Test Item Value Reference Range Interpretation Comments Urine Glucose (UA) (test code = 2349-9) 2+ NEGATIVE [facility] HospitalUrine ketones detection by automated test wyjyg2640-05-85 11:17:00* Test Item Value Reference Range Interpretation Comments Urine Ketones (test code = 60782-1) NEGATIVE NEGATIVE [facility] HospitalUrine urobilinogen measurement by test strip (mass/volume)2019-09-25 11:17:00* Test Item Value Reference Range Interpretation Comments Urine Urobilinogen (test code = 21781-4) 0.2 0.2-[address] HospitalUrine total bilirubin measurement (mass/volume)2019-09-25 11:17:00* Test Item Value Reference Range Interpretation Comments Urine Bilirubin (test code = 1978-6) NEGATIVE NEGATIVE [facility] HospitalUrine erythrocytes fnyjxcyos1597-05-08 11:17:00* Test Item Value Reference Range Interpretation Comments Urine Blood (test code = 19968-2) TRACE NEGATIVE [facility] HospitalAutomated urine sediment leukocyte count by microscopy (number/high power field)2019-09-25 11:17:00* Test Item Value Reference Range Interpretation Comments Urine WBC (test code = 5821-4) 0-5 0-[address] HospitalErythrocytes detection in urine sediment by light hjryumhlgm1930-81-72 11:17:00* Test Item Value Reference Range Interpretation Comments Urine RBC (test code = 24982-4) 0-5 0-[address] HospitalBacteria detection in urine sediment by light owhljsowxq4940-31-86 11:17:00* Test Item Value Reference Range Interpretation Comments Urine Bacteria (test code = 23622-3) FEW NONE [facility] HospitalEpithelial cells detection in urine sediment by light ybkyemaugt6887-57-05 11:17:00* Test Item Value Reference Range Interpretation Comments Urine Epithelial Cells (test code = 60694-3) FEW NONE [facility] HospitalProthrombin time (PT) in platelet poor plasma by coagulation ugrql7337-86-14 11:00:00* Test Item Value Reference Range Interpretation Comments Prothrombin Time (test code = 5902-2) 19.0 11.9-14.[address] [facility] HospitalINR in Platelet poor plasma by Coagulation avfdd3585-05-56 11:00:00* Test Item Value Reference Range Interpretation Comments Prothromb Time International Ratio (test code = 6301-6) 1.49 Oral Anticoagulant Therapy INR Values:1. Low Intensity Therapy 1.5 - 2.02 . Moderate Intensity Therapy 2.0 - 3.03. High Intensity Therapy(1) 2.5 - 3. 54. High Intensity Therapy(2) 3.0 - 4.05. Panic Value INR > 5.[address] [facility] HospitalBNP Pfs-bMin1084-97-02 11:00:00* Test Item Value Reference Range Interpretation Comments B-Type Natriuretic Peptide (test code = 75684-5) 281.2 0-100 [facility] or plasma creatine kinase measurement (enzymatic activity/volume)2019-09-25 11:00:00* Test Item Value Reference Range Interpretation Comments Creatine Kinase (test code = 2157-6) 65 29-168 [facility]ennialerum or plasma creatine kinase MB measurement (mass/volume)2019-09-25 11:00:00* Test Item Value Reference Range Interpretation Comments Creatine Kinase MB (test code = 56472-9) 2.00 0-5.[address] [facility] HospitalTroponin I measurement by highly sensitive enzyme knfvyxuyboh9032-61-73 11:00:00* Test Item Value Reference Range Interpretation Comments Troponin I (test code = 50466-6) < 0.001 0-0.300 [facility]um or plasma lipase measurement (enzymatic activity/volume)2019-09-25 11:00:00* Test Item Value Reference Range Interpretation Comments Lipase (test code = 3040-3) 31 8-[address] HospitalProthrombin time (PT) in platelet poor plasma by coagulation mpxoq8932-53-82 11:00:00* Test Item Value Reference Range Interpretation Comments Prothrombin Time (test code = 5902-2) 19.0 11.9-14.[address] [facility] HospitalINR in Platelet poor plasma by Coagulation wmvkh3849-88-79 11:00:00* Test Item Value Reference Range Interpretation Comments Prothromb Time International Ratio (test code = 6301-6) 1.49 Oral Anticoagulant Therapy INR Values:1. Low Intensity Therapy 1.5 - 2.02 . Moderate Intensity Therapy 2.0 - 3.03. High Intensity Therapy(1) 2.5 - 3. 54. High Intensity Therapy(2) 3.0 - 4.05. Panic Value INR > 5.[address] [facility] HospitalBNP Lxa-gEpb7299-43-02 11:00:00* Test Item Value Reference Range Interpretation Comments B-Type Natriuretic Peptide (test code = 53986-8) 281.2 0-100 [facility]um or plasma creatine kinase measurement (enzymatic activity/volume)2019-09-25 11:00:00* Test Item Value Reference Range Interpretation Comments Creatine Kinase (test code = 2157-6) 65 29-168 [facility]ennialerum or plasma creatine kinase MB measurement (mass/volume)2019-09-25 11:00:00* Test Item Value Reference Range Interpretation Comments Creatine Kinase MB (test code = 79029-6) 2.00 0-5.[address] [facility] HospitalTroponin I measurement by highly sensitive enzyme ytoqosmwulc4040-67-28 11:00:00* Test Item Value Reference Range Interpretation Comments Troponin I (test code = 45348-6) < 0.001 0-0.300 [facility] or plasma lipase measurement (enzymatic activity/volume)2019-09-25 11:00:00* Test Item Value Reference Range Interpretation Comments Lipase (test code = 3040-3) 31 8-[address] HospitalProthrombin time (PT) in platelet poor plasma by coagulation szoua7726-79-89 11:00:00* Test Item Value Reference Range Interpretation Comments Prothrombin Time (test code = 5902-2) 19.0 11.9-14.[address] [facility] HospitalINR in Platelet poor plasma by Coagulation wcoth6016-98-78 11:00:00* Test Item Value Reference Range Interpretation Comments Prothromb Time International Ratio (test code = 6301-6) 1.49 Oral Anticoagulant Therapy INR Values:1. Low Intensity Therapy 1.5 - 2.02 . Moderate Intensity Therapy 2.0 - 3.03. High Intensity Therapy(1) 2.5 - 3. 54. High Intensity Therapy(2) 3.0 - 4.05. Panic Value INR > 5.[address] [facility] [facility] HospitalBNP Fkb-aDbv4768-40-02 11:00:00* Test Item Value Reference Range Interpretation Comments B-Type Natriuretic Peptide (test code = 22932-1) 281.2 0-100 [facility] or plasma creatine kinase measurement (enzymatic activity/volume)2019-09-25 11:00:00* Test Item Value Reference Range Interpretation Comments Creatine Kinase (test code = 2157-6) 65 29-168 [facility]ennialerum or plasma creatine kinase MB measurement (mass/volume)2019-09-25 11:00:00* Test Item Value Reference Range Interpretation Comments Creatine Kinase MB (test code = 85262-8) 2.00 0-5.[address] [facility] HospitalTroponin I measurement by highly sensitive enzyme irzqsobtctc6196-73-45 11:00:00* Test Item Value Reference Range Interpretation Comments Troponin I (test code = 28416-2) < 0.001 0-0.300 [facility] or plasma lipase measurement (enzymatic activity/volume)2019-09-25 11:00:00* Test Item Value Reference Range Interpretation Comments Lipase (test code = 3040-3) 31 8-78 [facility]ennialerum or plasma creatine kinase measurement (enzymatic activity/volume)2019-09-25 11:00:00* Test Item Value Reference Range Interpretation Comments Creatine Kinase (test code = 2157-6) 65 29-168 [facility]ennialerum or plasma creatine kinase MB measurement (mass/volume)2019-09-25 11:00:00* Test Item Value Reference Range Interpretation Comments Creatine Kinase MB (test code = 52286-6) 2.00 0-5.0 [facility]um or plasma lipase measurement (enzymatic activity/volume)2019-09-25 11:00:00* Test Item Value Reference Range Interpretation Comments Lipase (test code = 3040-3) 31 8-78 [facility] SINGLE (PORTABLE)2019-09-23 10:22:00 [place] [address] Patient Name: DEBORAH AGUERO MR #: [id number] : 1955 Age/Sex: 64/F Req #: [id number] Adm Physician: STORMY RYAN MD Ordered by: STORMY RYAN MD Report #: [id number] Location: MED/SURG2 Room/Bed: [facility] Procedure: [id number] DX/CHEST SINGLE ( PORTABLE) Exam Date: 09/23/19 [...] COPY TO: STORMY RYAN MD CT ABDOMEN/PELVIS M8151-31-10 16:28:[address] [place], [place] [address] Patient Name: DEBORAH AGUERO MR #: [id number] : 1955 Age/Sex: 64/F Req #: [id number] [facility] Physician: STORMY RYAN MD Ordered by: STORMY RYAN MD Report #: [id number] Location: [facility]/SURG2 Room/Bed: [facility] Procedure: [id number] CT/CT ABDOMEN/PEL VIS W Exam Date: 09/22/19 [...] Thyroid Stimulating Hormone (TSH) (test code = 90518-8) 3.619 0.350-4.940 [facility]um or plasma thyrotropin measurement by detection limit <= 0.005 miu/l (units/volume)2019-09-22 05:10:00* Test Item Value Reference Range Interpretation Comments Thyroid Stimulating Hormone (TSH) (test code = 97187-2) 3.619 0.350-4.940 [facility]ennial[facility]um or plasma thyrotropin measurement by detection limit <= 0.005 miu/l (units/volume)2019-09-22 05:10:00* Test Item Value Reference Range Interpretation Comments Thyroid Stimulating Hormone (TSH) (test code = 94614-6) 3.619 0.350-4.940 [facility]um or plasma thyrotropin measurement by detection limit <= 0.005 miu/l (units/volume)2019-09-22 05:10:00* Test Item Value Reference Range Interpretation Comments Thyroid Stimulating Hormone (TSH) (test code = 21613-8) 3.619 0.350-4.[address] [facility] [facility] DY1209-07-47 23:54:00 [facility] [address] [address] Patient Name: DEBORAH AGUERO MR #: [id number] : 1955 Age/Sex: 64/F Req #: [id number] Adm Physician: Ordered by: RAMU PATEL MD Report #: [id number] Location: ER Room/Bed: Procedure: [id number] CT/CT ABDOMEN/PELVIS WO Exam Date: 09/20/19 Exam Ti me: 2324 REPORT STATUS: Signed E XAM: CT Abdomen and Pelvis WITHOUT contrast INDICATION: llcomfort mike de santiago ever [id number] [id number] Y COMPARISON: None. TECHNIQUE: Abdomen and [...] COPY TO: RAMU PATEL MD Bacterial urine dnaqlox9771-92-23 23:18:00* Test Item Value Reference Range Interpretation Comments Urine Culture (test code = 630-4) STAPHYLOCOCCUS AUREUS [facility] HospitalBacterial urine kvcdtpk9977-36-36 23:18:00* Test Item Value Reference Range Interpretation Comments Urine Culture (test code = 630-4) STAPHYLOCOCCUS AUREUS [facility] HospitalBacterial urine dtubqtb2843-71-18 23:18:00* Test Item Value Reference Range Interpretation Comments Urine Culture (test code = 630-4) STAPHYLOCOCCUS AUREUS [facility] HospitalBacterial urine iyzzyvw9927-86-46 23:18:00* Test Item Value Reference Range Interpretation Comments Urine Culture (test code = 630-4) STAPHYLOCOCCUS AUREUS [facility] HospitalFluoroscopic procedure less than one hour pwqetbui0574-90-66 22:40:00* Test Item Value Reference Range Interpretation Comments Lactic Acid Level (test code = Lactic Acid Level) 1.8 0.5- 2.[address] [facility] HospitalFluoroscopic procedure less than one hour okybeijt6126-35-99 22:40:00* Test Item Value Reference Range Interpretation Comments Lactic Acid Level (test code = Lactic Acid Level) 1.8 0.5- 2.[address] [facility] [facility] HospitalFluoroscopic procedure less than one hour lqjjvusi2776-89-51 22:40:00* Test Item Value Reference Range Interpretation Comments Lactic Acid Level (test code = Lactic Acid Level) 1.8 0.5- 2.[address] [facility] [facility] HospitalFluoroscopic procedure less than one hour tfopfkiq3425-31-81 22:40:00* Test Item Value Reference Range Interpretation Comments Lactic Acid Level (test code = Lactic Acid Level) 1.8 0.5- 2.[address] [facility] HospitalCHEST SINGLE (PORTABLE)2019-09-20 22:05:[address] [address] Patient Name: DEBORAH AGUERO MR #: [id number] : 1955 Age/Sex: 64/F Req #: [id number] Adm Physician: Ordered by: RAMU PATEL MD Report #: [id number] Location: ER Room/Bed: Procedure: [id number] DX/CHEST SINGLE (PORTABLE) Exam Date: 09/20/19 Exam [...] 09/20/192205 COPY TO: RAMU PATEL MD Blood lmgjfij3969-65-59 21:42:00* Test Item Value Reference Range Interpretation Comments Blood Culture (test code = 41691524) NO GROWTH AFTER 5 DAYS, FINAL [facility]PORT [facility] fdrgoyx1740-96-23 21:42:00* Test Item Value Reference Range Interpretation Comments Blood Culture (test code = 56506821) NO GROWTH AFTER 5 DAYS, FINAL REPORT [facility] HospitalBlood lsocuuc1613-06-62 21:42:00* Test Item Value Reference Range Interpretation Comments Blood Culture (test code = 73736239) NO GROWTH AFTER 5 DAYS, FINAL REPORT [facility] Centerood hamcyut1943-43-08 21:42:00* Test Item Value Reference Range Interpretation Comments Blood Culture (test code = 40471527) NO GROWTH AFTER 5 DAYS, FINAL REPORT [facility] HospitalActivated partial thromboplastin time (aPTT) in platelet poor plasma by coagulation fhygq7132-53-43 21:25:00* Test Item Value Reference Range Interpretation Comments Activated Partial Thromboplast Time (test code = 41639-7) 35.4 23.8-35.5 [facility]2020-04-27 21:25:00* Test Item Value Reference Range Interpretation Comments Ammonia (test code = 08554-7) 117 31-123 [facility] or plasma amylase measurement (enzymatic activity/volume)2019-09-20 21:25:00* Test Item Value Reference Range Interpretation Comments Amylase Level (test code = 1798-8) [address] [facility] HospitalActivated partial thromboplastin time (aPTT) in platelet poor plasma by coagulation ronyg9588-01-77 21:25:00* Test Item Value Reference Range Interpretation Comments Activated Partial Thromboplast Time (test code = 00790-6) 35.4 23.8-35.5 [facility]2020-04-27 21:25:00* Test Item Value Reference Range Interpretation Comments Ammonia (test code = 17831-4) 117 -123 [facility]ennialerum or plasma amylase measurement (enzymatic activity/volume)2019-09-20 21:25:00* Test Item Value Reference Range Interpretation Comments Amylase Level (test code = 1798-8) 33 - [facility] HospitalActivated partial thromboplastin time (aPTT) in platelet poor plasma by coagulation sckwh4141-36-67 21:25:00* Test Item Value Reference Range Interpretation Comments Activated Partial Thromboplast Time (test code = 40044-9) 35.4 23.8-35.5 [facility]2020-04-27 21:25:00* Test Item Value Reference Range Interpretation Comments Ammonia (test code = 04103-6) 117 31-123 [facility]ennialerum or plasma amylase measurement (enzymatic activity/volume)2019-09-20 21:25:00* Test Item Value Reference Range Interpretation Comments Amylase Level (test code = 1798-8) 33 -[address] [facility] HospitalActivated partial thromboplastin time (aPTT) in platelet poor plasma by coagulation zqzjj8521-79-23 21:25:00* Test Item Value Reference Range Interpretation Comments Activated Partial Thromboplast Time (test code = 07688-7) 35.4 23.8-35.5 [facility]ennialerum or plasma amylase measurement (enzymatic activity/volume)2019-09-20 21:25:00* Test Item Value Reference Range Interpretation Comments Amylase Level (test code = 1798-8) 33 25-[address] [facility] HospitalBedside Pqbvtrf7765-13-21 11:31:00* Test Item Value Reference Range Interpretation Comments Bedside Glucose (test code = 65653-2) 296 70-120 H Meter ID: [id number] St. [facility] HospitalNeutrophils % (Manual)2019-07-21 10:20:00* Test Item Value Reference Range Interpretation Comments Neutrophils % (Manual) (test code = 58164-0) 67 40-[address] [facility] HospitalLymphocytes % (Manual)2019-07-21 10:20:00 * Test Item Value Reference Range Interpretation Comments Lymphocytes % (Manual) (test code = 737-7) 20 19-[address] [facility] HospitalMonocytes % (Manual)2019-07-21 10:20:00* Test Item Value Reference Range Interpretation Comments Monocytes % (Manual) (test code = 744-3) 10 3.4-9.[address] [facility] HospitalEosinophils % (Manual)2019-07-21 10:20:00 * Test Item Value Reference Range Interpretation Comments Eosinophils % (Manual) (test code = 714-6) 3 0-[address] [facility] HospitalUS ABDOMEN QRECLKM8225-44-78 09:10:00 [address] [address] Patient Name: DEBORAH AGUERO MR #: [id number] : 1955 Age/Sex: 63/F Req #: [id number] Adm Physician: STORMY RYAN MD Ordered by: MARKO HOLLINS ETIOLOGY TEACHER Report #: [id number] Location: MED/SURG3 Room/Bed: 293-1 Procedure: [id number] US/U S ABDOMEN LIMITED Exam Date: 07/21/19 [...] LIV on 07[birth year]/19909 COPY TO: MARKO HOLLINS ETIOLOGY TEACHER Differential Total Cells Ubvvjhn0056-96-86 09:00:00* Test Item Value Reference Range Interpretation Comments Differential Total Cells Counted (test code = Differen tial Total Cells Counted) [address] [facility] HospitalPlatelet Vohlywfk7037-87-84 09:00:00* Test Item Value Reference Range Interpretation Comments Platelet Estimate (test code = 59213-1) SLIGHTLY DECREASED [facility] HospitalPlatelet Morphology Qgysbse4678-96-60 09:00:00* Test Item Value Reference Range Interpretation Comments Platelet Morphology Comment (test code = 65216-0) NORMAL [facility] HospitalAnisocytosis2020-02-26 09:00:00* Test Item Value Reference Range Interpretation Comments Anisocytosis (test code = 702-1) SLIGHT [facility] HospitalMacrocytosis2020-02-26 09:00:00* Test Item Value Reference Range Interpretation Comments Macrocytosis (test code = 738-5) SLIGHT [facility] HospitalRed Cell Morphology Dmtiyzb7364-20-14 09:00:00* Test Item Value Reference Range Interpretation Comments Red Cell Morphology Comment (test code = 6742-1) NORMAL [facility] Centennialodium Zrbtm3351-36-67 06:52:00* Test Item Value Reference Range Interpretation Comments Sodium Level (test code = 2951-2) 138 136-[address] [facility] [address] HospitalPotassium Xyepz7628-73-45 06:52:00* Test Item Value Reference Range Interpretation Comments Potassium Level (test code = 2823-3) 3.6 3.5-5.[address] [facility] HospitalChloride Kogad3184-88-05 06:52:00* Test Item Value Reference Range Interpretation Comments Chloride Level (test code = 2075-0) 106 98-[address] HospitalCarbon Dioxide Jutbp1527-18-64 06:52:00* Test Item Value Reference Range Interpretation Comments Carbon Dioxide Level (test code = 2028-9) 27 22-[address] [facility] HospitalAnion Ytc1153-72-33 06:52:00* Test Item Value Reference Range Interpretation Comments Anion Gap (test code = 10018-2) 8.6 8-[address] [facility] HospitalBlood Urea Rwjyxvvj0306-94-42 06:52:00* Test Item Value Reference Range Interpretation Comments Blood Urea Nitrogen (test code = 3094-0) 14 - [facility] HospitalCreatinine2020-02-26 06:52:00* Test Item Value Reference Range Interpretation Comments Creatinine (test code = 2160-0) 0.98 0.57-1.[address] [facility] HospitalBUN/Creatinine Ksqgq8135-79-37 06:52:00* Test Item Value Reference Range Interpretation Comments BUN/Creatinine Ratio (test code = 3097-3) 14 - [facility] HospitalEstimat Glomerular Filtration Rate 2019-07-21 06:52:00* Test Item Value Reference Range Interpretation Comments Estimat Glomerular Filtration Rate (test code = 155128435) 57 >60 L Ranges were taken from the National Kidney Disease Education Program and the [facility] [employer] literature.Reference ranges:60 or greater: Dzgdon96-28 ( for 3 consecutive months): Chronic kidney disease 15 or less: Kidney failureCHI St. [facility] – [facility] HospitalGlucose Mgowq3103-50-98 06:52:00* Test Item Value Reference Range Interpretation Comments Glucose Level (test code = IGU9206) 210 74-[address] [facility] HospitalCalcium Bpehn3626-02-97 06:52:00* Test Item Value Reference Range Interpretation Comments Calcium Level (test code = 95800-3) 8.5 8.4-10.[address] [facility] HospitalTotal Kbzaspjnt2731-50-67 06:52:00* Test Item Value Reference Range Interpretation Comments Total Bilirubin (test code = 1975-2) 3.4 0.2-1.[address] [facility] HospitalAspartate Amino Transf (AST/SGOT) 2019-07-21 06:52:00* Test Item Value Reference Range Interpretation Comments Aspartate Amino Transf (AST/SGOT) (test code = Aspartate Amino Transf (AST/SGOT)) 32 5-[address] [facility] HospitalAlanine Aminotransferase (ALT/SGPT) 2019-07-21 06:52:00* Test Item Value Reference Range Interpretation Comments Alanine Aminotransferase (ALT/SGPT) (test code = 1742-6) 35 0-[address] [facility] HospitalTotal Avlnxpk5774-67-73 06:52:00* Test Item Value Reference Range Interpretation Comments Total Protein (test code = 2885-2) 5.5 6.5-8.[address] HospitalAlbumin2020-02-26 06:52:00* Test Item Value Reference Range Interpretation Comments Albumin (test code = 1751-7) 2.1 3.5-5.[address] [facility] HospitalGlobulin2020-02-26 06:52:00* Test Item Value Reference Range Interpretation Comments Globulin (test code = 91960-6) 3.4 2.3-3.[address] [facility] HospitalAlbumin/Globulin Yhjxl6411-62-22 06:52:00 * Test Item Value Reference Range Interpretation Comments Albumin/Globulin Ratio (test code = 1759-0) 0.6 0.8-2.[address] [facility] HospitalAlkaline Piscgmsvclc6806-91-19 06:52:00* Test Item Value Reference Range Interpretation Comments Alkaline Phosphatase (test code = 6768-6) 330 40-[address] [facility] HospitalWhite Blood Tjlzl5481-74-16 06:23:00* Test Item Value Reference Range Interpretation Comments White Blood Count (test code = 6690-2) 10.25 4.8-10.[address] [facility] HospitalRed Blood Xwcfx1933-22-97 06:23:00* Test Item Value Reference Range Interpretation Comments Red Blood Count (test code = 789-8) 3.97 3.6-5.[address] HospitalHemoglobin2020-02-26 06:23:00* Test Item Value Reference Range Interpretation Comments Hemoglobin (test code = 60117-1) 13.4 12.0-16.[address] [facility] HospitalHematocrit2020-02-26 06:23:00* Test Item Value Reference Range Interpretation Comments Hematocrit (test code = 4544-3) 40.0 34.2-44.[address] HospitalMean Corpuscular Rlvjkt2114-24-57 06:23:00* Test Item Value Reference Range Interpretation Comments Mean Corpuscular Volume (test code = 787-2) 100.8 81-[address] [facility] HospitalMean Corpuscular Xojtutjgjm8258-22-50 06:23:00* Test Item Value Reference Range Interpretation Comments Mean Corpuscular Hemoglobin (test code = 785-6) 33.8 28-[address] [facility] HospitalMean Corpuscular Hemoglobin Concent 2019-07-21 06:23:00* Test Item Value Reference Range Interpretation Comments Mean Corpuscular Hemoglobin Concent (test code = 786-4) 33.5 31-[address] [facility] HospitalRed Cell Distribution Eknsi6553-83-33 06:23:00* Test Item Value Reference Range Interpretation Comments Red Cell Distribution Width (test code = 46470-9) 15.8 11.7 -14.[address] [facility] HospitalPlatelet Erblw3227-47-93 06:23:00* Test Item Value Reference Range Interpretation Comments Platelet Count (test code = 777-3) 74 140-[address] [facility] HospitalNeutrophils (%) (Auto)2019-07-21 06:23:00 * Test Item Value Reference Range Interpretation Comments Neutrophils (%) (Auto) (test code = 12035-7) 61.5 38.7-80.[address] HospitalLymphocytes (%) (Auto)2019-07-21 06:23:00 * Test Item Value Reference Range Interpretation Comments Lymphocytes (%) (Auto) (test code = 736-9) 20.4 18.0-39.[address] [facility] HospitalMonocytes (%) (Auto)2019-07-21 06:23:00* Test Item Value Reference Range Interpretation Comments Monocytes (%) (Auto) (test code = 5905-5) 10.1 4.4-11.[address] [facility] HospitalEosinophils (%) (Auto)2019-07-21 06:23:00 * Test Item Value Reference Range Interpretation Comments Eosinophils (%) (Auto) (test code = 713-8) 4.4 0.0-6.[address] [facility] HospitalBasophils (%) (Auto)2019-07-21 06:23:00* Test Item Value Reference Range Interpretation Comments Basophils (%) (Auto) (test code = 706-2) 0.6 0.0-1.[address] HospitalIM GRANULOCYTES %2019-07-21 06:23:00* Test Item Value Reference Range Interpretation Comments IM GRANULOCYTES % (test code = IM GRANULOCYTES %) 3.0 0.0- 1.[address] [facility] HospitalNeutrophils # (Auto)2019-07-21 06:23:00* Test Item Value Reference Range Interpretation Comments Neutrophils # (Auto) (test code = 751-8) 6.3 2.1-6.[address] [facility] HospitalLymphocytes # (Auto)2019-07-21 06:23:00* Test Item Value Reference Range Interpretation Comments Lymphocytes # (Auto) (test code = 82561-6) 2.1 1.0-3.[address] HospitalMonocytes # (Auto)2019-07-21 06:23:00* Test Item Value Reference Range Interpretation Comments Monocytes # (Auto) (test code = 742-7) 1.0 0.2-0.[address] [facility] HospitalEosinophils # (Auto)2019-07-21 06:23:00* Test Item Value Reference Range Interpretation Comments Eosinophils # (Auto) (test code = 711-2) 0.5 0.0-0.[address] [facility] HospitalBasophils # (Auto)2019-07-21 06:23:00* Test Item Value Reference Range Interpretation Comments Basophils # (Auto) (test code = 704-7) 0.1 0.0-0.[address] [facility] HospitalAbsolute Immature Granulocyte (auto 2019-07-21 06:23:00* Test Item Value Reference Range Interpretation Comments Absolute Immature Granulocyte (auto ([place] t code = Absolute Immature Granulocyte (auto) 0.31 0-0.[address] [facility] HospitalFluoroscopic procedure less than one hour nrkperky9912-95-94 04:40:00* Test Item Value Reference Range Interpretation Comments Differential Total Cells Counted (test code = Differrosetta tial Total Cells Counted) 100 [facility] blood neutrophils/100 leukocytes 2019-07-21 04:40:00* Test Item Value Reference Range Interpretation Comments Neutrophils % (Manual) (test code = 58653-1) 67 40-74 [facility] blood lymphocytes/100 leukocytes 2019-07-21 04:40:00* Test Item Value Reference Range Interpretation Comments Lymphocytes % (Manual) (test code = 737-7) 20 19-48 [facility] blood monocytes/100 leukocytes 2019-07-21 04:40:00* Test Item Value Reference Range Interpretation Comments Monocytes % (Manual) (test code = 744-3) 10 3.4-9.0 [facility] blood eosinophil count as percentage of total ekeghvkuhu7311-33-00 04:40:00* Test Item Value Reference Range Interpretation Comments Eosinophils % (Manual) (test code = 714-6) 3 0-7 [facility] platelets count by estimate (number/volume)2019-07-21 04:40:00* Test Item Value Reference Range Interpretation Comments Platelet Estimate (test code = 56554-3) SLIGHTLY DECREASED [facility] HospitalPlatelet lnzeesaahg5650-22-98 04:40:00* Test Item Value Reference Range Interpretation Comments Platelet Morphology Comment (test code = 92701-7) NORMAL [facility] anisocytosis detection by light lrczdnethy6943-96-99 04:40:00* Test Item Value Reference Range Interpretation Comments Anisocytosis (test code = 702-1) SLIGHT [facility] macrocytes detection by light ubaicfuxcw8479-65-11 04:40:00* Test Item Value Reference Range Interpretation Comments Macrocytosis (test code = 738-5) SLIGHT [facility] HospitalRBC fhbxjwmirp9240-38-66 04:40:00* Test Item Value Reference Range Interpretation Comments Red Cell Morphology Comment (test code = 6742-1) NORMAL [facility] HospitalFluoroscopic procedure less than one hour jfbrdvbd8825-86-67 04:40:00* Test Item Value Reference Range Interpretation Comments Differential Total Cells Counted (test code = Differen tial Total Cells Counted) 100 [facility] blood neutrophils/100 leukocytes 2019-07-21 04:40:00* Test Item Value Reference Range Interpretation Comments Neutrophils % (Manual) (test code = 52152-8) 67 40-74 [facility] blood lymphocytes/100 leukocytes 2019-07-21 04:40:00* Test Item Value Reference Range Interpretation Comments Lymphocytes % (Manual) (test code = 737-7) 20 19-48 [facility] blood monocytes/100 leukocytes 2019-07-21 04:40:00* Test Item Value Reference Range Interpretation Comments Monocytes % (Manual) (test code = 744-3) 10 3.4-9.0 [facility] blood eosinophil count as percentage of total bhsekidpzy2336-58-61 04:40:00* Test Item Value Reference Range Interpretation Comments Eosinophils % (Manual) (test code = 714-6) 3 0-7 [facility] platelets count by estimate (number/volume)2019-07-21 04:40:00* Test Item Value Reference Range Interpretation Comments Platelet Estimate (test code = 35530-1) SLIGHTLY DECREASED [facility] HospitalPlatelet shbwmrnyss7229-84-74 04:40:00* Test Item Value Reference Range Interpretation Comments Platelet Morphology Comment (test code = 92619-5) NORMAL [facility] anisocytosis detection by light mgvjaeymab9473-94-92 04:40:00* Test Item Value Reference Range Interpretation Comments Anisocytosis (test code = 702-1) SLIGHT [facility] macrocytes detection by light ompnddprhr3902-80-71 04:40:00* Test Item Value Reference Range Interpretation Comments Macrocytosis (test code = 738-5) SLIGHT [facility] HospitalRBC tjjkwtspja6193-98-22 04:40:00* Test Item Value Reference Range Interpretation Comments Red Cell Morphology Comment (test code = 6742-1) NORMAL [facility] HospitalFluoroscopic procedure less than one hour gvgpuapu2364-27-38 04:40:00* Test Item Value Reference Range Interpretation Comments Differential Total Cells Counted (test code = Differen tial Total Cells Counted) 100 [facility] blood neutrophils/100 leukocytes 2019-07-21 04:40:00* Test Item Value Reference Range Interpretation Comments Neutrophils % (Manual) (test code = 74557-4) 67 40-74 [facility] blood lymphocytes/100 leukocytes 2019-07-21 04:40:00* Test Item Value Reference Range Interpretation Comments Lymphocytes % (Manual) (test code = 737-7) 20 19-48 [facility] blood monocytes/100 leukocytes 2019-07-21 04:40:00* Test Item Value Reference Range Interpretation Comments Monocytes % (Manual) (test code = 744-3) 10 3.4-9.0 [facility] blood eosinophil count as percentage of total mrjqlnkqdh9969-47-47 04:40:00* Test Item Value Reference Range Interpretation Comments Eosinophils % (Manual) (test code = 714-6) 3 0-7 [facility] platelets count by estimate (number/volume)2019-07-21 04:40:00* Test Item Value Reference Range Interpretation Comments Platelet Estimate (test code = 85616-7) SLIGHTLY DECREASED [facility] HospitalPlatelet jatihchzqh0826-81-08 04:40:00* Test Item Value Reference Range Interpretation Comments Platelet Morphology Comment (test code = 34264-8) NORMAL [facility] anisocytosis detection by light zfggceuery5246-96-53 04:40:00* Test Item Value Reference Range Interpretation Comments Anisocytosis (test code = 702-1) SLIGHT [facility] macrocytes detection by light hkrmkztuas0294-31-67 04:40:00* Test Item Value Reference Range Interpretation Comments Macrocytosis (test code = 738-5) SLIGHT [facility] HospitalRBC jvhowxwyvj3162-33-03 04:40:00* Test Item Value Reference Range Interpretation Comments Red Cell Morphology Comment (test code = 6742-1) NORMAL [facility] HospitalFluoroscopic procedure less than one hour hllzyeqt9146-29-19 04:40:00* Test Item Value Reference Range Interpretation Comments Differential Total Cells Counted (test code = Differen tial Total Cells Counted) 100 [facility] blood neutrophils/100 leukocytes 2019-07-21 04:40:00* Test Item Value Reference Range Interpretation Comments Neutrophils % (Manual) (test code = 29140-0) 67 40-74 [facility] blood lymphocytes/100 leukocytes 2019-07-21 04:40:00* Test Item Value Reference Range Interpretation Comments Lymphocytes % (Manual) (test code = 737-7) 20 19-48 [facility] blood monocytes/100 leukocytes 2019-07-21 04:40:00* Test Item Value Reference Range Interpretation Comments Monocytes % (Manual) (test code = 744-3) 10 3.4-9.[address] [facility] [facility] HospitalManual blood eosinophil count as percentage of total qpsjpndupz8868-83-34 04:40:00* Test Item Value Reference Range Interpretation Comments Eosinophils % (Manual) (test code = 714-6) 3 0-[address] [facility] HospitalBlood platelets count by estimate (number/volume)2019-07-21 04:40:00* Test Item Value Reference Range Interpretation Comments Platelet Estimate (test code = 84245-1) SLIGHTLY DECREASED [facility] HospitalPlatelet fqekyubyle3274-66-61 04:40:00* Test Item Value Reference Range Interpretation Comments Platelet Morphology Comment (test code = 90119-8) NORMAL [facility] HospitalBlood anisocytosis detection by light dnujgigdei7072-85-30 04:40:00* Test Item Value Reference Range Interpretation Comments Anisocytosis (test code = 702-1) SLIGHT [facility] macrocytes detection by light lwrgndmmmm2557-56-33 04:40:00* Test Item Value Reference Range Interpretation Comments Macrocytosis (test code = 738-5) SLIGHT [facility] HospitalRBC duymeghdmj4238-15-96 04:40:00* Test Item Value Reference Range Interpretation Comments Red Cell Morphology Comment (test code = 6742-1) NORMAL [facility] HospitalAmmonia2020-02-25 17:29:00* Test Item Value Reference Range Interpretation Comments Ammonia (test code = 21582-6) 159 31-[address] [facility] HospitalCreatine Kinase CU9312-73-08 07:23:00* Test Item Value Reference Range Interpretation Comments Creatine Kinase MB (test code = 97960-3) 2.00 0-5.[address] [facility] HospitalTroponin E6847-43-44 07:23:00* Test Item Value Reference Range Interpretation Comments Troponin I (test code = FRB4107) 0.010 0-0.[address] [facility] HospitalCreatine Sujuzy2261-94-25 07:01:00* Test Item Value Reference Range Interpretation Comments Creatine Kinase (test code = 2157-6) 81 29-[address] [facility] [facility] HospitalPhosphorus Brrrw8878-35-95 06:44:00* Test Item Value Reference Range Interpretation Comments Phosphorus Level (test code = PKS9361) 2.3 2.3-4.[address] [facility] HospitalMagnesium Wgpml9620-78-68 06:44:00* Test Item Value Reference Range Interpretation Comments Magnesium Level (test code = 68551-7) 1.8 1.3-2.[address] [facility] HospitalCHES SINGLE (PORTABLE)2019-07-20 05:37:00 [facility] [address] [address] Patient Name: DEBORAH AGUERO MR #: [id number] : 1955 Age/Sex: 63/F Req #: [id number] Adm Physician: STORMY RYAN MD Ordered by: ANSON TELLES ETIOLOGY TEACHER Report #: [id number] Location: [facility] Room/Bed: [facility] Procedure: [id number] DX/ CHEST SINGLE (PORTABLE) Exam Date: Exam [...] 07/20/19 COPY TO: ANSON TELLES NP Phosphorus iohdccnazei6301-71-52 04:40:00* Test Item Value Reference Range Interpretation Comments Phosphorus Level (test code = TMP9833) 2.3 2.3-4.[address] [facility] HospitalPhosphorus lccgsumafgu6622-38-51 04:40:00 * Test Item Value Reference Range Interpretation Comments Phosphorus Level (test code = AHG1271) 2.3 2.3-4.[address] [facility] HospitalPhosphorus yvaopxuiylu3496-22-70 04:40:00 * Test Item Value Reference Range Interpretation Comments Phosphorus Level (test code = PUU2964) 2.3 2.3-4.[address] [facility] HospitalPhosphorus zyhgxcfbhyt4903-17-19 04:40:00 * Test Item Value Reference Range Interpretation Comments Phosphorus Level (test code = UJZ9465) 2.3 2.3-4.[address] [facility] HospitalCT ABDOMEN/PELVIS Q2043-83-04 20:03:00 [address] [address] Patient Name: DEBORAH AGUERO MR #: [id number] : 1955 Age/Sex: 63/F Req #: [id number] Adm Physician: STORMY RYAN MD Ordered by: ANSON TELLES ETIOLOGY TEACHER Report #: [id number] Location: [facility] Room/Bed: [place] [address] Procedure: [id number] CT/ CT ABDOMEN/PELVIS W Exam Date: 07/19/19 [...] COPY TO: ANSON TELLES NP B-Type Natriuretic Pqilflc3856-95-46 17:45:00* Test Item Value Reference Range Interpretation Comments B-Type Natriuretic Peptide (test code = 63019-9) 228.0 0-[address] [facility] CenterCHES SINGLE (PORTABLE)2019-07-19 17:19:00 [facility] [address] [address] Patient Name: DEBORAH AGUERO MR #: [id number] : 1955 Age/Sex: 63/F Req #: [id number] Adm Physician: Ordered by: ANSON TELLES NP Report #: [id number] Location: ER Room/Bed: Procedure: [id number] DX/C HEST SINGLE (PORTABLE) Exam Date: 07/19/19 [...] By: LIV on 0 1720 COPY TO: CACACE,ANSON ETIOLOGY TEACHER Prothrombin Hbbt6513-01-87 17:02:00* Test Item Value Reference Range Interpretation Comments Prothrombin Time (test code = 5902-2) 21.1 11.9-14.[address] [facility] HospitalProthromb Time International Ratio 2019-07-19 17:02:00* Test Item Value Reference Range Interpretation Comments Prothromb Time International Ratio (test code = 6301-6) 1.69 Oral Anticoagulant Therapy INR Values:1. Low Intensity Therapy 1.5 - 2.02 . Moderate Intensity Therapy 2.0 - 3.03. High Intensity Therapy(1) 2.5 - 3. 54. High Intensity Therapy(2) 3.0 - 4.05. Panic Value INR > 5.[address] [facility] HospitalActivated Partial Thromboplast Time 2019-07-19 17:02:00* Test Item Value Reference Range Interpretation Comments Activated Partial Thromboplast Time (test code = 98683-4) 30.0 23.8-35.[address] HospitalUrine EUL4960-35-81 16:46:00* Test Item Value Reference Range Interpretation Comments Urine WBC (test code = 5821-4) 0-5 0-[address] [facility] HospitalUrine CCR5561-72-97 16:46:00* Test Item Value Reference Range Interpretation Comments Urine RBC (test code = 73246-1) 0-5 0-[address] [facility] HospitalUrine Qermdirg6682-09-56 16:46:00* Test Item Value Reference Range Interpretation Comments Urine Bacteria (test code = 62024-4) NONE NONE [facility] HospitalUrine Epithelial Fecve3863-58-59 16:46:00 * Test Item Value Reference Range Interpretation Comments Urine Epithelial Cells (test code = 98581-1) FEW NONE [facility] HospitalUrine Transitional Epithelial Cells 2019-07-19 16:46:00* Test Item Value Reference Range Interpretation Comments Urine Transitional Epithelial Cells (test code = 8249-5) RARE NONE H [facility] HospitalUrine Zkoan8532-41-09 16:35:00* Test Item Value Reference Range Interpretation Comments Urine Color (test code = 5778-6) YELLOW YELLOW [facility] HospitalUrine Iwhjovp7493-66-74 16:35:00* Test Item Value Reference Range Interpretation Comments Urine Clarity (test code = 55453-0) SL CLOUDY CLEAR [facility] HospitalUrine Specific Umyhgiz1046-32-66 16:35:00 * Test Item Value Reference Range Interpretation Comments Urine Specific [place] (test code = 5811-5) 1.020 1.010-1.[address] [facility] HospitalUrine rJ3751-78-74 16:35:00* Test Item Value Reference Range Interpretation Comments Urine pH (test code = 95202-1) 7 5-[address] [facility] HospitalUrine Leukocyte Hwklzwot9926-25-47 16:35:00* Test Item Value Reference Range Interpretation Comments Urine Leukocyte Esterase (test code = 5799-2) NEGATIVE NEGATIVE [facility] Dftlwzw8724-98-09 16:35:00* Test Item Value Reference Range Interpretation Comments Urine Nitrite (test code = 70627-8) NEGATIVE NEGATIVE [facility] Mhewjbk9844-66-34 16:35:00* Test Item Value Reference Range Interpretation Comments Urine Protein (test code = 5804-0) NEGATIVE NEGATIVE [facility] Glucose (UA)2019-07-19 16:35:00* Test Item Value Reference Range Interpretation Comments Urine Glucose (UA) (test code = 2349-9) 3+ NEGATIVE H [facility] Byabliu0864-85-38 16:35:00* Test Item Value Reference Range Interpretation Comments Urine Ketones (test code = 79202-9) NEGATIVE NEGATIVE [facility] Niotwacgiuzn2676-36-67 16:35:00* Test Item Value Reference Range Interpretation Comments Urine Urobilinogen (test code = 49504-3) 1 0.2-[address] [facility] HospitalUrine Ouoteempi1687-23-19 16:35:00* Test Item Value Reference Range Interpretation Comments Urine Bilirubin (test code = 1978-6) NEGATIVE NEGATIVE [facility] HospitalUrine Dmwlk9348-02-25 16:35:00* Test Item Value Reference Range Interpretation Comments Urine Blood (test code = 53889-4) TRACE NEGATIVE H [facility] HospitalTransitional cells detection in urine sediment by light fxfahfizgn7172-44-23 14:13:00* Test Item Value Reference Range Interpretation Comments Urine Transitional Epithelial Cells (test code = 8249-5) RARE NONE [facility] HospitalTransitional cells detection in urine sediment by light ifxolyypiu9295-36-90 14:13:00* Test Item Value Reference Range Interpretation Comments Urine Transitional Epithelial Cells (test code = 8249-5) RARE NONE [facility] HospitalTransitional cells detection in urine sediment by light euxbbpancj7526-72-47 14:13:00* Test Item Value Reference Range Interpretation Comments Urine Transitional Epithelial Cells (test code = 8249-5) RARE NONE [facility] HospitalTransitional cells detection in urine sediment by light thcctriusw9477-74-66 14:13:00* Test Item Value Reference Range Interpretation Comments Urine Transitional Epithelial Cells (test code = 8249-5) RARE NONE [facility] HospitalBlood Aknsgjp3392-16-33 12:42:00* Test Item Value Reference Range Interpretation Comments Blood Culture (test code = 86000797) NO GROWTH AFTER 5 DAYS, FINAL REPORT [facility] HospitalBlood Jovlpyh4790-16-41 12:42:00* Test Item Value Reference Range Interpretation Comments Blood Culture (test code = 26392241) NO GROWTH AFTER [address] [facility] HospitalPlatelet Kajrskbt4521-03-90 07:23:00* Test Item Value Reference Range Interpretation Comments Platelet Estimate (test code = 00055-6) MARKEDLY DECREASED [facility] HospitalPlatelet Morphology Mfzksgt5873-43-30 07:23:00* Test Item Value Reference Range Interpretation Comments Platelet Morphology Comment (test code = 37809-7) FEW LARGE NO EDTA PLT CLUMPS SEENCHI St. [facility] HospitalCHES SINGLE (PORTABLE)2019-07-14 07:06:00 [address] [address] Patient Name: DEBORAH AGUERO MR #: [id number] : 1955 Age/Sex: 63/F Req #: [id number] Adm Physician: STORMY RYAN MD Ordered by: ANSON TELLES ETIOLOGY TEACHER Report #: [id number] Location: [facility] Room/Bed: [address] Procedure: [id number] DX/ CHEST SINGLE (PORTABLE) Exam Date: 07/14/19 Exam Cornell e: 619 REPORT STATUS: Signed EX AMINATION: CHEST SINGLE (PORTABLE) COMPARISON: CT chest 07/13/2019 INDICATION: SOB [id number] DISCUSSION: Frontal view of t he chest [...] SHETH MD 07 COPY TO: MYRIAM TELLES NP Sodium Qwlef5224-66-09 06:41:00* Test Item Value Reference Range Interpretation Comments Sodium Level (test code = 2951-2) 139 136-[address] [facility] HospitalPotassium Qvfgw6539-29-36 06:41:00* Test Item Value Reference Range Interpretation Comments Potassium Level (test code = 2823-3) 4.1 3.5-5.[address] [facility] HospitalChloride Ndjzp5820-20-39 06:41:00* Test Item Value Reference Range Interpretation Comments Chloride Level (test code = 2075-0) 107 98-[address] [facility] HospitalCarbon Dioxide Jscoi5019-58-94 06:41:00* Test Item Value Reference Range Interpretation Comments Carbon Dioxide Level (test code = 2028-9) 26 22-[address] [facility] HospitalAnion Cfo8886-38-24 06:41:00* Test Item Value Reference Range Interpretation Comments Anion Gap (test code = 43299-5) 10.1 8-[address] [facility] HospitalBlood Urea Yguxrydq8974-46-43 06:41:00* Test Item Value Reference Range Interpretation Comments Blood Urea Nitrogen (test code = 3094-0) 15 7- [facility] HospitalCreatinine2020-02-19 06:41:00* Test Item Value Reference Range Interpretation Comments Creatinine (test code = 2160-0) 1.07 0.57-1.[address] [facility] HospitalBUN/Creatinine Blwwg3700-13-05 06:41:00* Test Item Value Reference Range Interpretation Comments BUN/Creatinine Ratio (test code = 3097-3) 14 6- [facility] HospitalEstimat Glomerular Filtration Rate 2019-07-14 06:41:00* Test Item Value Reference Range Interpretation Comments Estimat Glomerular Filtration Rate (test code = 896770388) 51 >60 L Ranges were taken from the National Kidney Disease Education Program and the [place] Javier [facility] Kidney Foundation literature.Reference ranges:60 or greater: Nxtozf39-72 ( for 3 consecutive months): Chronic kidney disease 15 or less: Kidney failureCHI St[facility] HospitalGlucose Llcbg1507-84-85 06:41:00* Test Item Value Reference Range Interpretation Comments Glucose Level (test code = UJQ0950) 213 74-[address] [facility] HospitalCalcium Ffyca2661-02-00 06:41:00* Test Item Value Reference Range Interpretation Comments Calcium Level (test code = 84179-6) 8.8 8.4-10.[address] [facility] HospitalCreatine Xiuqbx6763-52-47 06:21:00* Test Item Value Reference Range Interpretation Comments Creatine Kinase (test code = 2157-6) 170 29-[address] [facility] HospitalCreatine Kinase ZB1400-47-40 06:21:00* Test Item Value Reference Range Interpretation Comments Creatine Kinase MB (test code = 14579-9) 2.00 0-5.[address] HospitalTroponin G0297-90-00 06:21:00* Test Item Value Reference Range Interpretation Comments Troponin I (test code = ZMF7093) < 0.001 0-0.[address] [facility] HospitalWhite Blood Ylrub8471-06-58 05:35:00* Test Item Value Reference Range Interpretation Comments White Blood Count (test code = 6690-2) 5.62 4.8-10.[address] [facility] HospitalRed Blood Btftl6492-97-20 05:35:00* Test Item Value Reference Range Interpretation Comments Red Blood Count (test code = 789-8) 3.99 3.6-5.[address] [facility] HospitalHemoglobin2020-02-19 05:35:00* Test Item Value Reference Range Interpretation Comments Hemoglobin (test code = 71938-0) 13.3 12.0-16.[address] [facility] HospitalHematocrit2020-02-19 05:35:00* Test Item Value Reference Range Interpretation Comments Hematocrit (test code = 4544-3) 39.6 34.2-44.[address] [facility] HospitalMean Corpuscular Qnrdap3380-00-71 05:35:00* Test Item Value Reference Range Interpretation Comments Mean Corpuscular Volume (test code = 787-2) 99.2 81-[address] [facility] HospitalMean Corpuscular Kaolzetsty0126-71-41 05:35:00* Test Item Value Reference Range Interpretation Comments Mean Corpuscular Hemoglobin (test code = 785-6) 33.3 28-[address] [facility] HospitalMean Corpuscular Hemoglobin Concent 2019-07-14 05:35:00* Test Item Value Reference Range Interpretation Comments Mean Corpuscular Hemoglobin Concent (test code = 786-4) 33.6 31-[address] [facility] HospitalRed Cell Distribution Wkawr5822-45-08 05:35:00* Test Item Value Reference Range Interpretation Comments Red Cell Distribution Width (test code = 93843-9) 15.2 11.7 -14.[address] [facility] HospitalPlatelet Huywc3527-92-09 05:35:00* Test Item Value Reference Range Interpretation Comments Platelet Count (test code = 777-3) 69 140-[address] HospitalNeutrophils (%) (Auto)2019-07-14 05:35:00 * Test Item Value Reference Range Interpretation Comments Neutrophils (%) (Auto) (test code = 72273-8) 47.1 38.7-80.[address] HospitalLymphocytes (%) (Auto)2019-07-14 05:35:00 * Test Item Value Reference Range Interpretation Comments Lymphocytes (%) (Auto) (test code = 736-9) 29.0 18.0-39.[address] [facility] HospitalMonocytes (%) (Auto)2019-07-14 05:35:00* Test Item Value Reference Range Interpretation Comments Monocytes (%) (Auto) (test code = 5905-5) 15.1 4.4-11.[address] [facility] HospitalEosinophils (%) (Auto)2019-07-14 05:35:00 * Test Item Value Reference Range Interpretation Comments Eosinophils (%) (Auto) (test code = 713-8) 7.8 0.0-6.[address] [facility] HospitalBasophils (%) (Auto)2019-07-14 05:35:00* Test Item Value Reference Range Interpretation Comments Basophils (%) (Auto) (test code = 706-2) 0.5 0.0-1.[address] [facility] HospitalIM GRANULOCYTES %2019-07-14 05:35:00* Test Item Value Reference Range Interpretation Comments IM GRANULOCYTES % (test code = IM GRANULOCYTES %) 0.5 0.0- 1.[address] [facility] [facility] HospitalNeutrophils # (Auto)2019-07-14 05:35:00* Test Item Value Reference Range Interpretation Comments Neutrophils # (Auto) (test code = 751-8) 2.6 2.1-6.[address] [facility] HospitalLymphocytes # (Auto)2019-07-14 05:35:00* Test Item Value Reference Range Interpretation Comments Lymphocytes # (Auto) (test code = 13138-1) 1.6 1.0-3.[address] [facility] HospitalMonocytes # (Auto)2019-07-14 05:35:00* Test Item Value Reference Range Interpretation Comments Monocytes # (Auto) (test code = 742-7) 0.9 0.2-0.[address] HospitalEosinophils # (Auto)2019-07-14 05:35:00* Test Item Value Reference Range Interpretation Comments Eosinophils # (Auto) (test code = 711-2) 0.4 0.0-0.[address] [facility] HospitalBasophils # (Auto)2019-07-14 05:35:00* Test Item Value Reference Range Interpretation Comments Basophils # (Auto) (test code = 704-7) 0.0 0.0-0.[address] [facility] HospitalAbsolute Immature Granulocyte (auto 2019-07-14 05:35:00* Test Item Value Reference Range Interpretation Comments Absolute Immature Granulocyte (auto ([place] t code = Absolute Immature Granulocyte (auto) 0.03 0-0.[address] [facility] HospitalBedside Svelhfi1952-61-14 22:30:00* Test Item Value Reference Range Interpretation Comments Bedside Glucose (test code = 69599-1) 326 70-120 H Meter ID: [id number] [facility] HospitalUS ABDOMEN COMPLETE 2019-07-13 19:35:00 [place] [address] Patient Name: DEBORAH AGUERO MR #: [id number] : 1955 Age/Sex: 63/F Req #: [id number] Adm Physician: STORMY RYAN MD Ordered by: MARKO HOLLINS ETIOLOGY TEACHER Report #: [id number] Location: [facility] Room/Bed: [place] [address] Procedure: [id number] US/U S ABDOMEN COMPLETE Exam Date: 07/13/19 Exam Time: REPORT STATUS: Signed ADDENDUM #1 Addendum: Vessels: The aorta and IVC are lar shireen obscured by overlying bowel. Visualized portions unremarkable. Amie d by: Dr. Jaiden Grider M.D. on 07/22/2019 11:22 AM ORIGINAL REPORT * EXAM: US ABDOMEN COMPLETE DATE: 07/13/2019 12:00 AM IND ICATION: ascites [id number] COMPARISON: Chest CT, 07/13 FINDINGS: Grayscale [...] COPY TO: MARKO HOLLINS NP CT CHEST B7282-22-32 15:43:00 [place] [address] Patient Name: DEBORAH AGUERO MR #: [id number] : 1955 Age/Sex: 63/F Req #: [id number] [facility] Physician: STORMY RYAN MD Ordered by: NIKOS KEYS DO Report #: [id number] Location: [facility] Room/Bed: [place] [address] Procedure: [id number] CT/CT CHEST W Exam Date: 07/13/19 Exam [...] 3:49 PM Dictated By: DUC RAMIREZ MD 008 Transcribe d By: LIV on 07/13/19 4720 COPY TO: NIKOS KEYS DO Urine ULP1958-66-75 14:49:00* Test Item Value Reference Range Interpretation Comments Urine WBC (test code = 5821-4) 11-20 0-[address] [facility] HospitalUrine NTT4675-64-19 14:49:00* Test Item Value Reference Range Interpretation Comments Urine RBC (test code = 08154-1) 6-10 0-[address] [facility] HospitalUrine Zoevlyzq2679-86-79 14:49:00* Test Item Value Reference Range Interpretation Comments Urine Bacteria (test code = 29778-4) FEW NONE [facility] HospitalUrine Epithelial Keeuk1018-52-78 14:49:00 * Test Item Value Reference Range Interpretation Comments Urine Epithelial Cells (test code = 06542-2) FEW NONE [facility] HospitalUrine Cobwn1168-50-75 14:49:00* Test Item Value Reference Range Interpretation Comments Urine Yeast (test code = 73969-4) FEW NONE H [facility] HospitalUrine Zoskn9555-35-44 14:49:00* Test Item Value Reference Range Interpretation Comments Urine Yeast (test code = 02562-6) FEW NONE H [facility] HospitalB-Type Natriuretic Lgjsgah9636-08-64 14:34:00* Test Item Value Reference Range Interpretation Comments B-Type Natriuretic Peptide (test code = 20626-1) 300.5 0-[address] [facility] HospitalInfluenza Virus Types A,B Antigen 2019-07-13 14:12:00* Test Item Value Reference Range Interpretation Comments Influenza Virus Types A,B Antigen (test code = 36830-0) NEGATIVE NEGATIVE [facility] HospitalInfluenza Virus Types A,B Antigen 2019-07-13 14:12:00* Test Item Value Reference Range Interpretation Comments Influenza Virus Types A,B Antigen (test code = 09323-5) NEGATIVE NEGATIVE [facility] HospitalUrine Ralgp9450-04-24 14:06:00* Test Item Value Reference Range Interpretation Comments Urine Color (test code = 5778-6) YELLOW YELLOW [facility] HospitalUrine Fesnunm6817-19-58 14:06:00* Test Item Value Reference Range Interpretation Comments Urine Clarity (test code = 06040-0) SL CLOUDY CLEAR [facility] HospitalUrine Specific Ufbtqvf3883-34-07 14:06:00 * Test Item Value Reference Range Interpretation Comments Urine Specific [place] (test code = 5811-5) 1.020 1.010-1.[address] [facility] HospitalUrine eA2465-70-16 14:06:00* Test Item Value Reference Range Interpretation Comments Urine pH (test code = 35157-6) 6 5-[address] [facility] HospitalUrine Leukocyte Gqssznwu6981-20-69 14:06:00* Test Item Value Reference Range Interpretation Comments Urine Leukocyte Esterase (test code = 5799-2) NEGATIVE NEGATIVE [facility] HospitalUrine Gqbowiu3339-64-54 14:06:00* Test Item Value Reference Range Interpretation Comments Urine Nitrite (test code = 58795-5) NEGATIVE NEGATIVE [facility] HospitalUrine Ijabfkw2767-41-82 14:06:00* Test Item Value Reference Range Interpretation Comments Urine Protein (test code = 5804-0) NEGATIVE NEGATIVE [facility] HospitalUrine Glucose (UA)2019-07-13 14:06:00* Test Item Value Reference Range Interpretation Comments Urine Glucose (UA) (test code = 2349-9) 3+ NEGATIVE H [facility] HospitalUrine Smtmfox6177-52-84 14:06:00* Test Item Value Reference Range Interpretation Comments Urine Ketones (test code = 81968-7) NEGATIVE NEGATIVE [facility] Jzeaeuagodju2831-96-11 14:06:00* Test Item Value Reference Range Interpretation Comments Urine Urobilinogen (test code = 30928-9) 8 0.2-[address] [facility] HospitalUrine Gqmisgqym2256-54-87 14:06:00* Test Item Value Reference Range Interpretation Comments Urine Bilirubin (test code = 1978-6) SMALL NEGATIVE [facility] HospitalUrine Dlhnu8420-76-72 14:06:00* Test Item Value Reference Range Interpretation Comments Urine Blood (test code = 28156-1) 1+ NEGATIVE [facility] HospitalProthrombin Pjtn6002-32-16 14:04:00* Test Item Value Reference Range Interpretation Comments Prothrombin Time (test code = 5902-2) 20.7 11.9-14.[address] [facility] HospitalProthromb Time International Ratio 2019-07-13 14:04:00* Test Item Value Reference Range Interpretation Comments Prothromb Time International Ratio (test code = 6301-6) 1.65 Oral Anticoagulant Therapy INR Values:1. Low Intensity Therapy 1.5 - 2.02 . Moderate Intensity Therapy 2.0 - 3.03. High Intensity Therapy(1) 2.5 - 3. 54. High Intensity Therapy(2) 3.0 - 4.05. Panic Value INR > 5.[address] [facility] HospitalActivated Partial Thromboplast Time 2019-07-13 14:04:00* Test Item Value Reference Range Interpretation Comments Activated Partial Thromboplast Time (test code = 58099-4) 38.7 23.8-35.[address] [facility] HospitalCHEST 2 YJEHH9261-16-79 14:01:00 [place] [id number] [place] [address] Patient Name: DEBORAH AGUERO MR #: [id number] : 1955 Age/Sex: 63/F Req #: [id number] Adm Physician: Ordered by: ANSON TELLES ETIOLOGY TEACHER Report #: [id number] Location: ER Room/Bed: Procedure: [id number] DX/C HEST 2 VIEWS Exam Date: 07/13/19 [...] Signed By: JESSICA RAMIREZ MD on 07/13/19 140 Transcribed By: LIV on 07/13/19 140 COPY TO: ANSON TELLES NP Total Qsgjbigvb7158-38-33 13:25:00* Test Item Value Reference Range Interpretation Comments Total Bilirubin (test code = 1975-) 4.7 0.2-1.[address] HospitalAspartate Amino Transf (AST/SGOT) 2019-07-13 13:25:00* Test Item Value Reference Range Interpretation Comments Aspartate Amino Transf (AST/SGOT) (test code = Aspartate Amino Transf (AST/SGOT)) 33 5-[address] [facility] [facility] HospitalAlanine Aminotransferase (ALT/SGPT) 2019-07-13 13:25:00* Test Item Value Reference Range Interpretation Comments Alanine Aminotransferase (ALT/SGPT) (test code = 1742-6) 30 0-[address] [facility] [facility] HospitalTotal Zkonjsz8102-11-28 13:25:00* Test Item Value Reference Range Interpretation Comments Total Protein (test code = 2885-2) 6.3 6.5-8.[address] [facility] HospitalAlbumin2020-02-18 13:25:00* Test Item Value Reference Range Interpretation Comments Albumin (test code = 1751-7) 2.3 3.5-5.[address] [facility] HospitalGlobulin2020-02-18 13:25:00* Test Item Value Reference Range Interpretation Comments Globulin (test code = 98619-9) 4.0 2.3-3.[address] [facility] HospitalAlbumin/Globulin Ylvpk3138-09-22 13:25:00 * Test Item Value Reference Range Interpretation Comments Albumin/Globulin Ratio (test code = 1759-0) 0.6 0.8-2.[address] [facility] HospitalAlkaline Sruhzrtvsmz0820-72-33 13:25:00* Test Item Value Reference Range Interpretation Comments Alkaline Phosphatase (test code = 6768-6) 257 40-[address] [facility] HospitalYeast detection in urine sediment by light qedobcmwsm9005-67-06 12:09:00* Test Item Value Reference Range Interpretation Comments Urine Yeast (test code = 51624-4) FEW NONE [facility] HospitalInfluenza virus A and B antigen identification by uzokugceghrtjjebem0954-57-72 12:09:00* Test Item Value Reference Range Interpretation Comments Influenza Virus Types A,B Antigen (test code = 87862-1) NEGATIVE NEGATIVE [facility] HospitalYeast detection in urine sediment by light uxihwytpbs1899-28-25 12:09:00* Test Item Value Reference Range Interpretation Comments Urine Yeast (test code = 24821-4) FEW NONE [facility] HospitalInfluenza virus A and B antigen identification by xdkdvbamtpdzwfmuwc0118-13-79 12:09:00* Test Item Value Reference Range Interpretation Comments Influenza Virus Types A,B Antigen (test code = 98892-7) NEGATIVE NEGATIVE [facility] HospitalYeast detection in urine sediment by light wurwiwuesm1786-40-25 12:09:00* Test Item Value Reference Range Interpretation Comments Urine Yeast (test code = 87585-8) FEW NONE [facility] HospitalInfluenza virus A and B antigen identification by aufasztifunvhjzdcg0708-87-80 12:09:00* Test Item Value Reference Range Interpretation Comments Influenza Virus Types A,B Antigen (test code = 64780-1) NEGATIVE NEGATIVE [facility] HospitalYeast detection in urine sediment by light iylzijuyke2771-44-70 12:09:00* Test Item Value Reference Range Interpretation Comments Urine Yeast (test code = 81654-7) FEW NONE [facility] HospitalInfluenza virus A and B antigen identification by zblvhpqmsbvqnmzwmh0454-67-79 12:09:00* Test Item Value Reference Range Interpretation Comments Influenza Virus Types A,B Antigen (test code = 13893-9) NEGATIVE NEGATIVE [facility] HospitalPOCT-GLUCOSE CNLOD3730-89-19 08:32:00* Test Item Value Reference Range Interpretation Comments POC-GLUCOSE METER (BEAKER) (test code = 1538) 297 mg/dL 70-110 H TESTED AT [address] [address] POCT-GLUCOSE XZKGY8146-53-29 07:52:00* Test Item Value Reference Range Interpretation Comments POC-GLUCOSE METER (BEAKER) (test code = 1538) 337 mg/dL 70-110 H TESTED AT [place] [id number] [facility] [address] POCT-GLUCOSE WSVNX5495-39-03 06:53:00* Test Item Value Reference Range Interpretation Comments POC-GLUCOSE METER (BEAKER) (test code = 1538) 356 mg/dL 70-110 H TESTED AT [address] [address] [address], CHEST, WITHOUT MLEWMGVV7841-44-64 18:32:00Referring: Dr. Andreas Rooney Reason for exam:->COUGHReason [...] Verified Date/Time: 0 07/27/2018 18:32:17 Reading Location: [facility] B1 C013Y CT Body Reading Room [facility] signed by: ELOY TIDWELL M.D. on 07/27/2018 06:32 PM BASIC METABOLIC EDQEE2426-65-12 15:22:00* Test Item Value Reference Range Interpretation [...] Specimen moderately ictericCBC W/PLT COUNT & AUTO VJELBOIGVHBF9676-86-50 15:10:00* Test Item Value Reference Range Interpretation [...] 2801) 0 % 0-1 RAD, CHEST, 2 OLRTL6276-16-09 15:09:00Referring: Dr. Andreas Rooney Reason for exam:->COUGHReason [...] Verified Date/Time: 07/27/2018 1 5:09:12 Reading Location: [address] Consult Reading Room ALYSIS WITHOUT IAGJWTZQGNG6219-22-53 14:53:00* Test Item Value Reference Range Interpretation [...] 0.2-1.0 SOURCE(BEAKER) (test code = 2795) Urine VNH3253-16-32 15:47:00* Test Item Value Reference Range Interpretation Comments Urine WBC (test code = 5821-4) NONE 0-[address] [facility] HospitalUrine UNI4227-97-10 15:47:00* Test Item Value Reference Range Interpretation Comments Urine RBC (test code = 24893-8) 0-5 0-[address] [facility] HospitalUrine Iozwxzga3268-62-23 15:47:00* Test Item Value Reference Range Interpretation Comments Urine Bacteria (test code = 95634-4) MANY NONE H [facility] HospitalUrine Epithelial Nzsis2855-92-45 15:47:00 * Test Item Value Reference Range Interpretation Comments Urine Epithelial Cells (test code = 28902-6) FEW NONE [facility] HospitalUrine Amorphous Jofmchux7981-28-71 15:47:00* Test Item Value Reference Range Interpretation Comments Urine Amorphous Sediment (test code = 8246-1) MODERATE FEW H [facility] HospitalUrine Gnizd5276-35-41 15:39:00* Test Item Value Reference Range Interpretation Comments Urine Color (test code = 5778-6) YELLOW YELLOW [facility] HospitalUrine Pkkgahr9228-89-42 15:39:00* Test Item Value Reference Range Interpretation Comments Urine Clarity (test code = 57402-4) SL CLOUDY CLEAR [facility] HospitalUrine Specific Tbadwmo7766-89-68 15:39:00 * Test Item Value Reference Range Interpretation Comments Urine Specific [place] (test code = 5811-5) 1.015 1.010-1.[address] [facility] HospitalUrine iR4901-14-29 15:39:00* Test Item Value Reference Range Interpretation Comments Urine pH (test code = 76496-4) 6 5-[address] HospitalUrine Leukocyte Ezdietsj7889-28-54 15:39:00* Test Item Value Reference Range Interpretation Comments Urine Leukocyte Esterase (test code = 5799-2) NEGATIVE NEGATIVE [facility] HospitalUrine Mcaukcd8490-61-12 15:39:00* Test Item Value Reference Range Interpretation Comments Urine Nitrite (test code = 72980-0) NEGATIVE NEGATIVE [facility] HospitalUrine Cklhbnq8103-34-32 15:39:00* Test Item Value Reference Range Interpretation Comments Urine Protein (test code = 5804-0) NEGATIVE NEGATIVE [facility] Glucose (UA)2018-07-10 15:39:00* Test Item Value Reference Range Interpretation Comments Urine Glucose (UA) (test code = 2349-9) 3+ NEGATIVE H [facility] Nezsypb9871-72-97 15:39:00* Test Item Value Reference Range Interpretation Comments Urine Ketones (test code = 30756-3) NEGATIVE NEGATIVE [facility] Dprzpddknfrq3025-66-21 15:39:00* Test Item Value Reference Range Interpretation Comments Urine Urobilinogen (test code = 34239-1) 0.2 0.2-1 [facility] Tfepnvwzw2464-97-74 15:39:00* Test Item Value Reference Range Interpretation Comments Urine Bilirubin (test code = 1978-6) NEGATIVE NEGATIVE [facility] Tqutd0744-90-11 15:39:00* Test Item Value Reference Range Interpretation Comments Urine Blood (test code = 39337-3) 1+ NEGATIVE H [facility]ennialodium Wbaud7696-80-36 15:05:00* Test Item Value Reference Range Interpretation Comments Sodium Level (test code = 2951-2) 142 136-[address] [facility] HospitalPotassium Lpezm4175-52-02 15:05:00* Test Item Value Reference Range Interpretation Comments Potassium Level (test code = 2823-3) 4.0 3.5-5.[address] [facility] HospitalChloride Nrvto4969-84-54 15:05:00* Test Item Value Reference Range Interpretation Comments Chloride Level (test code = 2075-0) 109 98-[address] [facility] HospitalCarbon Dioxide Dbyki3590-60-37 15:05:00* Test Item Value Reference Range Interpretation Comments Carbon Dioxide Level (test code = 2028-9) 23 22-[address] [facility] HospitalAnion Vsx2063-97-64 15:05:00* Test Item Value Reference Range Interpretation Comments Anion Gap (test code = 66642-8) 14.0 8-[address] [facility] HospitalBlood Urea Lyvxrzto9371-96-29 15:05:00* Test Item Value Reference Range Interpretation Comments Blood Urea Nitrogen (test code = 3094-0) 10 7-[address] [facility] HospitalCreatinine2019-02-15 15:05:00* Test Item Value Reference Range Interpretation Comments Creatinine (test code = 2160-0) 1.05 0.57-1.[address] [facility] HospitalBUN/Creatinine Mnlyg0991-19-83 15:05:00* Test Item Value Reference Range Interpretation Comments BUN/Creatinine Ratio (test code = 3097-3) 10 6- [facility] HospitalEstimat Glomerular Filtration Rate 2018-07-10 15:05:00* Test Item Value Reference Range Interpretation Comments Estimat Glomerular Filtration Rate (test code = 832206837) 53 >60 L Ranges were taken from the National Kidney Disease Education Program and the [place] Javier [facility] Kidney Foundation literature.Reference ranges:60 or greater: Jpyzhi54-97 ( for 3 consecutive months): Chronic kidney disease 15 or less: Kidney failureCHI St. [facility] HospitalGlucose Cjckx2081-58-49 15:05:00* Test Item Value Reference Range Interpretation Comments Glucose Level (test code = HBT6509) 303 74-[address] [facility] HospitalCalcium Wtpqk0893-59-35 15:05:00* Test Item Value Reference Range Interpretation Comments Calcium Level (test code = 24132-1) 8.5 8.4-10.[address] [facility] HospitalTotal Ngntratxu2675-65-23 15:05:00* Test Item Value Reference Range Interpretation Comments Total Bilirubin (test code = 1975-2) 3.9 0.2-1.[address] [facility] HospitalAspartate Amino Transf (AST/SGOT) 2018-07-10 15:05:00* Test Item Value Reference Range Interpretation Comments Aspartate Amino Transf (AST/SGOT) (test code = Aspartate Amino Transf (AST/SGOT)) 32 5-[address] [facility] HospitalAlanine Aminotransferase (ALT/SGPT) 2018-07-10 15:05:00* Test Item Value Reference Range Interpretation Comments Alanine Aminotransferase (ALT/SGPT) (test code = 1742-6) 23 0-[address] [facility] HospitalTotal Ihemfgc2727-07-80 15:05:00* Test Item Value Reference Range Interpretation Comments Total Protein (test code = 2885-2) 6.0 6.5-8.[address] HospitalAlbumin2019-02-15 15:05:00* Test Item Value Reference Range Interpretation Comments Albumin (test code = 1751-7) 2.5 3.5-5.[address] HospitalGlobulin2019-02-15 15:05:00* Test Item Value Reference Range Interpretation Comments Globulin (test code = 04564-7) 3.5 2.3-3.[address] [facility] HospitalAlbumin/Globulin Lhvlj6809-92-34 15:05:00 * Test Item Value Reference Range Interpretation Comments Albumin/Globulin Ratio (test code = 1759-0) 0.7 0.8-2.[address] [facility] HospitalAlkaline Nbajvkopsrq6418-53-21 15:05:00* Test Item Value Reference Range Interpretation Comments Alkaline Phosphatase (test code = 6768-6) 273 40-[address] [facility] HospitalB-Type Natriuretic Clpxktw5917-44-68 15:05:00* Test Item Value Reference Range Interpretation Comments B-Type Natriuretic Peptide (test code = 81974-2) 346.9 0-[address] [facility] HospitalCreatine Oskjke2329-05-09 15:05:00* Test Item Value Reference Range Interpretation Comments Creatine Kinase (test code = 2157-6) 87 29-[address] HospitalCreatine Kinase FZ5966-02-51 15:05:00* Test Item Value Reference Range Interpretation Comments Creatine Kinase MB (test code = 45835-5) 1.00 0-5.[address] HospitalTroponin [id number] 15:05:00* Test Item Value Reference Range Interpretation Comments Troponin I (test code = TBB7950) 0.002 0-0.[address] HospitalCHEST 2 ZTMMM6428-04-82 14:49:00 [facility] [address] [address] Patient Name: DEBORAH AGUERO MR #: [id number] : 1955 Age/Sex: 62/F Req #: [id number] Adm Physician: Ordered by: ANSON TELLES NP Report #: [id number] Location: ER Room/Bed: Procedure: [id number] DX/[facility] ST 2 VIEWS Exam Date: 07/10/18 Exam [...] 07/10/181455 COPY TO: ANSON TELLES NP Prothrombin Afjf8220-99-06 14:45:00* Test Item Value Reference Range Interpretation Comments Prothrombin Time (test code = 5902-2) 19.6 11.9-14.[address] [facility] HospitalProthromb Time International Ratio 2018-07-10 14:45:00* Test Item Value Reference Range Interpretation Comments Prothromb Time International Ratio (test code = 6301-6) 1.52 Oral Anticoagulant Therapy INR Values:1. Low Intensity Therapy 1.5 - 2.02 . Moderate Intensity Therapy 2.0 - 3.03. High Intensity Therapy(1) 2.5 - 3. 54. High Intensity Therapy(2) 3.0 - 4.05. Panic Value INR > 5.[address] [facility] HospitalActivated Partial Thromboplast Time 2018-07-10 14:45:00* Test Item Value Reference Range Interpretation Comments Activated Partial Thromboplast Time (test code = 62387-3) 39.1 23.8-35.[address] HospitalWhite Blood Ojehx9336-37-49 12:55:00* Test Item Value Reference Range Interpretation Comments White Blood Count (test code = 6690-2) 5.92 4.8-10.[address] [facility] HospitalRed Blood Emcrr3814-06-62 12:55:00* Test Item Value Reference Range Interpretation Comments Red Blood Count (test code = 789-8) 4.06 3.6-5.[address] [facility] HospitalHemoglobin2019-02-15 12:55:00* Test Item Value Reference Range Interpretation Comments Hemoglobin (test code = 53610-9) 12.9 12.0-16.[address] [facility] HospitalHematocrit2019-02-15 12:55:00* Test Item Value Reference Range Interpretation Comments Hematocrit (test code = 4544-3) 38.9 34.2-44.[address] HospitalMean Corpuscular Xdewco7842-91-53 12:55:00* Test Item Value Reference Range Interpretation Comments Mean Corpuscular Volume (test code = 787-2) 95.8 81-[address] [facility] HospitalMean Corpuscular Tlmlfzhkoo8535-52-73 12:55:00* Test Item Value Reference Range Interpretation Comments Mean Corpuscular Hemoglobin (test code = 785-6) 31.8 28-[address] [facility] HospitalMean Corpuscular Hemoglobin Concent 2018-07-10 12:55:00* Test Item Value Reference Range Interpretation Comments Mean Corpuscular Hemoglobin Concent (test code = 786-4) 33.2 31-[address] [facility] HospitalRed Cell Distribution Kjvwu6751-50-98 12:55:00* Test Item Value Reference Range Interpretation Comments Red Cell Distribution Width (test code = 75507-7) 17.1 11.7 -14.[address] [facility] HospitalPlatelet Ujgjw3672-73-35 12:55:00* Test Item Value Reference Range Interpretation Comments Platelet Count (test code = 777-3) 112 140-[address] HospitalNeutrophils (%) (Auto)2018-07-10 12:55:00 * Test Item Value Reference Range Interpretation Comments Neutrophils (%) (Auto) (test code = 22560-8) 52.0 38.7-80.[address] HospitalLymphocytes (%) (Auto)2018-07-10 12:55:00 * Test Item Value Reference Range Interpretation Comments Lymphocytes (%) (Auto) (test code = 736-9) 25.5 18.0-39.[address] [facility] HospitalMonocytes (%) (Auto)2018-07-10 12:55:00* Test Item Value Reference Range Interpretation Comments Monocytes (%) (Auto) (test code = 5905-5) 14.0 4.4-11.[address] HospitalEosinophils (%) (Auto)2018-07-10 12:55:00 * Test Item Value Reference Range Interpretation Comments Eosinophils (%) (Auto) (test code = 713-8) 7.6 0.0-6.[address] [facility] HospitalBasophils (%) (Auto)2018-07-10 12:55:00* Test Item Value Reference Range Interpretation Comments Basophils (%) (Auto) (test code = 706-2) 0.7 0.0-1.[address] HospitalIM GRANULOCYTES %2018-07-10 12:55:00* Test Item Value Reference Range Interpretation Comments IM GRANULOCYTES % (test code = IM GRANULOCYTES %) 0.2 0.0- 1.[address] [facility] [facility] HospitalNeutrophils # (Auto)2018-07-10 12:55:00* Test Item Value Reference Range Interpretation Comments Neutrophils # (Auto) (test code = 751-8) 3.1 2.1-6.[address] HospitalLymphocytes # (Auto)2018-07-10 12:55:00* Test Item Value Reference Range Interpretation Comments Lymphocytes # (Auto) (test code = 60538-7) 1.5 1.0-3.[address] [facility] HospitalMonocytes # (Auto)2018-07-10 12:55:00* Test Item Value Reference Range Interpretation Comments Monocytes # (Auto) (test code = 742-7) 0.8 0.2-0.[address] [facility] HospitalEosinophils # (Auto)2018-07-10 12:55:00* Test Item Value Reference Range Interpretation Comments Eosinophils # (Auto) (test code = 711-2) 0.5 0.0-0.[address] HospitalBasophils # (Auto)2018-07-10 12:55:00* Test Item Value Reference Range Interpretation Comments Basophils # (Auto) (test code = 704-7) 0.0 0.0-0.[address] [facility] HospitalAbsolute Immature Granulocyte (auto 2018-07-10 12:55:00* Test Item Value Reference Range Interpretation Comments Absolute Immature Granulocyte (auto ([place] t code = Absolute Immature Granulocyte (auto) 0.01 0-0.[address] HospitalBLOOD GAS, KPNZQLSD3650-34-54 14:16:00* Test Item Value Reference Range Interpretation [...] 1819) 21.0 % ALPHA FETOPROTEIN (AFP), TUMOR OIEKSG5988-77-08 20:44:00* Test Item Value Reference Range Interpretation Comments ALPHA-FETOPROTEIN (BEAKER) (test code = 1094) 3.0 ng/mL <10.0 BASIC METABOLIC CUGWX2498-98-32 18:02:00* Test Item Value Reference Range Interpretation [...] FOR DIALYSIS PATIENTS. Specimen slightly ictericHEPATIC FUNCTION YTXYO6150-41-06 18:02:00* Test Item Value Reference Range Interpretation [...] 6-55 Specimen slightly hemolyzed Specimen slightly ictericPROTHROMBIN TIME/ASI6134-62-85 17:05:00* Test Item Value Reference Range Interpretation [...] mechanical heart valves.CBC W/PLT COUNT & AUTO HVTMJMSLULCC0053-55-64 16:56:00* Test Item Value Reference Range Interpretation [...] code = 2801) 0 % 0-1 Bedside Ontsdeq7007-86-78 11:56:00* Test Item Value Reference Range Interpretation Comments Bedside Glucose (test code = 99147-3) 267 70-120 H Meter ID: [id number] St[facility] HospitalBedside Glucose 2017-12-01 11:56:00* Test Item Value Reference Range Interpretation Comments Bedside Glucose (test code = 46153-5) 267 70-120 H Meter ID: [id number] Scott & [facility] – Centennialodium Level 2017-12-01 06:00:00* Test Item Value Reference Range Interpretation Comments Sodium Level (test code = 2951-2) 142 136-[address] [facility] [facility] HospitalPotassium Xgvjb9676-03-90 06:00:00* Test Item Value Reference Range Interpretation Comments Potassium Level (test code = 2823-3) 3.9 3.5-5.[address] [facility] HospitalChloride Zogon3681-63-11 06:00:00* Test Item Value Reference Range Interpretation Comments Chloride Level (test code = 2075-0) 114 98-[address] [facility] HospitalCarbon Dioxide Jzjub3705-45-58 06:00:00* Test Item Value Reference Range Interpretation Comments Carbon Dioxide Level (test code = 2028-9) 24 22-[address] [facility] HospitalAnion Cky0643-56-96 06:00:00* Test Item Value Reference Range Interpretation Comments Anion Gap (test code = 39739-1) 7.9 8-[address] [facility] HospitalBlood Urea Gecrbygp6739-56-39 06:00:00* Test Item Value Reference Range Interpretation Comments Blood Urea Nitrogen (test code = 3094-0) 13 7-[address] [facility] HospitalCreatinine2018-07-09 06:00:00* Test Item Value Reference Range Interpretation Comments Creatinine (test code = 2160-0) 1.27 0.57-1.[address] [facility] HospitalBUN/Creatinine Zqirk8133-76-88 06:00:00* Test Item Value Reference Range Interpretation Comments BUN/Creatinine Ratio (test code = 3097-3) 10 6-[address] [facility] HospitalEstimat Glomerular Filtration Rate 2017-12-01 06:00:00* Test Item Value Reference Range Interpretation Comments Estimat Glomerular Filtration Rate (test code = 15173-7) 42 >60 L Ranges were taken from the National Kidney Disease Education Program and the [place] [facility]avier [facility] Kidney Foundation literature.Reference ranges:60 or greater: Czhyog84-59 ( for 3 consecutive months): Chronic kidney disease 15 or less: Kidney failureCHI St[facility] HospitalGlucose Vlhlo4319-89-13 06:00:00* Test Item Value Reference Range Interpretation Comments Glucose Level (test code = HNI5411) 243 74-[address] [facility] HospitalCalcium Lciui1458-97-72 06:00:00* Test Item Value Reference Range Interpretation Comments Calcium Level (test code = 84394-5) 9.4 8.4-10.[address] [facility] HospitalTotal Vtewafptu6384-07-09 06:00:00* Test Item Value Reference Range Interpretation Comments Total Bilirubin (test code = 1975-2) 2.4 0.2-1.2 H [facility] Uucrcihrc4647-64-53 06:00:00* Test Item Value Reference Range Interpretation Comments Direct Bilirubin (test code = 02531-1) 0.9 0.0-0.[address] [facility] HospitalAspartate Amino Transf (AST/SGOT) 2017-12-01 06:00:00* Test Item Value Reference Range Interpretation Comments Aspartate Amino Transf (AST/SGOT) (test code = Aspartate Amino Transf (AST/SGOT)) 52 5-[address] [facility] HospitalAlanine Aminotransferase (ALT/SGPT) 2017-12-01 06:00:00* Test Item Value Reference Range Interpretation Comments Alanine Aminotransferase (ALT/SGPT) (test code = 1742-6) 36 0-[address] [facility] HospitalTotal Uygfvna3334-89-04 06:00:00* Test Item Value Reference Range Interpretation Comments Total Protein (test code = 2885-2) 6.2 6.5-8.[address] [facility] HospitalAlbumin2018-07-09 06:00:00* Test Item Value Reference Range Interpretation Comments Albumin (test code = 1751-7) 2.5 3.5-5.[address] [facility] HospitalAlkaline Zeacfhjfial9820-37-61 06:00:00* Test Item Value Reference Range Interpretation Comments Alkaline Phosphatase (test code = 6768-6) 216 40-150 [facility]rect Vxbwcwkum2982-03-74 06:00:00* Test Item Value Reference Range Interpretation Comments Direct Bilirubin (test code = 04290-9) 0.9 0.0-0.[address] [facility] HospitalAmmonia2018-07-09 05:48:00* Test Item Value Reference Range Interpretation Comments Ammonia (test code = 04886-3) 117 31-[address] [facility] HospitalAmmonia2018-07-09 05:48:00* Test Item Value Reference Range Interpretation Comments Ammonia (test code = 29486-9) 117 31-[address] [facility] HospitalWhite Blood Ykomf8025-90-09 05:26:00* Test Item Value Reference Range Interpretation Comments White Blood Count (test code = 6690-2) 4.62 4.8-10.[address] [facility] HospitalRed Blood Wdzca1851-72-88 05:26:00* Test Item Value Reference Range Interpretation Comments Red Blood Count (test code = 789-8) 3.51 3.6-5.[address] HospitalHemoglobin2018-07-09 05:26:00* Test Item Value Reference Range Interpretation Comments Hemoglobin (test code = 91149-2) 11.7 12.0-16.0 L [facility] [facility] HospitalHematocrit2018-07-09 05:26:00* Test Item Value Reference Range Interpretation Comments Hematocrit (test code = 4544-3) 35.6 34.2-44.[address] [facility] HospitalMean Corpuscular Vbejoj9142-37-11 05:26:00* Test Item Value Reference Range Interpretation Comments Mean Corpuscular Volume (test code = 787-2) 101.4 81-[address] [facility] HospitalMean Corpuscular Iekezrvmav0582-78-95 05:26:00* Test Item Value Reference Range Interpretation Comments Mean Corpuscular Hemoglobin (test code = 785-6) 33.3 28-[address] [facility] HospitalMean Corpuscular Hemoglobin Concent 2017-12-01 05:26:00* Test Item Value Reference Range Interpretation Comments Mean Corpuscular Hemoglobin Concent (test code = 786-4) 32.9 31-[address] [facility] HospitalRed Cell Distribution Bwyio6376-17-36 05:26:00* Test Item Value Reference Range Interpretation Comments Red Cell Distribution Width (test code = 18189-1) 14.6 11.7 -14.[address] [facility] HospitalPlatelet Rdrwa6032-70-69 05:26:00* Test Item Value Reference Range Interpretation Comments Platelet Count (test code = 777-3) 65 140-[address] [facility] HospitalNeutrophils (%) (Auto)2017-12-01 05:26:00 * Test Item Value Reference Range Interpretation Comments Neutrophils (%) (Auto) (test code = 01608-5) 46.0 38.7-80.[address] [facility] HospitalLymphocytes (%) (Auto)2017-12-01 05:26:00 * Test Item Value Reference Range Interpretation Comments Lymphocytes (%) (Auto) (test code = 736-9) 36.1 18.0-39.[address] [facility] HospitalMonocytes (%) (Auto)2017-12-01 05:26:00* Test Item Value Reference Range Interpretation Comments Monocytes (%) (Auto) (test code = 5905-5) 10.4 4.4-11.[address] [facility] HospitalEosinophils (%) (Auto)2017-12-01 05:26:00 * Test Item Value Reference Range Interpretation Comments Eosinophils (%) (Auto) (test code = 713-8) 6.9 0.0-6.[address] [facility] HospitalBasophils (%) (Auto)2017-12-01 05:26:00* Test Item Value Reference Range Interpretation Comments Basophils (%) (Auto) (test code = 706-2) 0.4 0.0-1.[address] [facility] HospitalIM GRANULOCYTES %2017-12-01 05:26:00* Test Item Value Reference Range Interpretation Comments IM GRANULOCYTES % (test code = IM GRANULOCYTES %) 0.2 0.0- 1.[address] [facility] [facility] HospitalNeutrophils # (Auto)2017-12-01 05:26:00* Test Item Value Reference Range Interpretation Comments Neutrophils # (Auto) (test code = 751-8) 2.1 2.1-6.[address] [facility] HospitalLymphocytes # (Auto)2017-12-01 05:26:00* Test Item Value Reference Range Interpretation Comments Lymphocytes # (Auto) (test code = 57173-3) 1.7 1.0-3.[address] [facility] HospitalMonocytes # (Auto)2017-12-01 05:26:00* Test Item Value Reference Range Interpretation Comments Monocytes # (Auto) (test code = 742-7) 0.5 0.2-0.[address] [facility] HospitalEosinophils # (Auto)2017-12-01 05:26:00* Test Item Value Reference Range Interpretation Comments Eosinophils # (Auto) (test code = 711-2) 0.3 0.0-0.[address] [facility] HospitalBasophils # (Auto)2017-12-01 05:26:00* Test Item Value Reference Range Interpretation Comments Basophils # (Auto) (test code = 704-7) 0.0 0.0-0.[address] [facility] HospitalAbsolute Immature Granulocyte (auto 2017-12-01 05:26:00* Test Item Value Reference Range Interpretation Comments Absolute Immature Granulocyte (auto ([place] t code = Absolute Immature Granulocyte (auto) 0.01 0-0.[address] [facility] HospitalGlobulin2018-07-08 06:20:00* Test Item Value Reference Range Interpretation Comments Globulin (test code = 79531-8) 3.5 2.3-3.[address] [facility] HospitalAlbumin/Globulin Bbliu2421-54-30 06:20:00 * Test Item Value Reference Range Interpretation Comments Albumin/Globulin Ratio (test code = 1759-0) 0.7 0.8-2.[address] [facility] HospitalCT ABDOMEN/PELVIS [id number] 19:13:00 [place] [address] Patient Name: DEBORAH AGUERO MR #: [id number] : 0 1955 Age/Sex: 62/F Req #: [id number] Adm Physician: STORMY RYAN MD Ordered by: STORMY RYAN MD Report #: [id number] Locatio n: MED/SURG2 Room/Bed: [facility] Procedure: [id number] CT/ CT ABDOMEN/PELVIS WO Exam Date: 11/29/17 [...] STORMY RYAN MD CHEST SINGLE (PORTABLE)2017-11-29 05:17:00 [facility] [address] [place] [address] Patient Name: DEBORAH AGUERO MR #: [id number] : 0 1955 Age/Sex: 62/F Req #: [id number] Adm Physician: Ordered by: RAMU PATEL MD Report #: [id number] Location: ER Ro om/Bed: Procedure: [id number] DX/CHEST SINGLE (PORTABL E) Exam Date: 11/29/17 [...] COPY T O: RAMU PATEL MD Urine RCH8118-22-12 04:51:00* Test Item Value Reference Range Interpretation Comments Urine WBC (test code = 5821-4) NONE 0-[address] [facility] HospitalUrine OIO7772-61-84 04:51:00* Test Item Value Reference Range Interpretation Comments Urine RBC (test code = 16138-1) 0-5 0-[address] [facility] HospitalUrine Rhzwpwui6039-68-75 04:51:00* Test Item Value Reference Range Interpretation Comments Urine Bacteria (test code = 67134-4) MODERATE NONE H [facility] HospitalUrine Epithelial Yznls0774-22-08 04:51:00 * Test Item Value Reference Range Interpretation Comments Urine Epithelial Cells (test code = 75159-8) MANY NONE [facility] HospitalUrine Calcium Oxalate Dzuktyse7933-72-15 04:51:00* Test Item Value Reference Range Interpretation Comments Urine Calcium Oxalate Crystals (test code = 5774-5) FEW FE W [facility] HospitalUrine Calcium Oxalate Ugnxrfuv4148-73-32 04:51:00* Test Item Value Reference Range Interpretation Comments Urine Calcium Oxalate Crystals (test code = 5774-5) FEW FE W [facility] HospitalUrine Eysdx7636-78-82 04:50:00* Test Item Value Reference Range Interpretation Comments Urine Color (test code = 5778-6) YELLOW YELLOW [facility] HospitalUrine Kvmctux1033-66-66 04:50:00* Test Item Value Reference Range Interpretation Comments Urine Clarity (test code = 02992-9) SL CLOUDY CLEAR [facility] HospitalUrine Specific Nsxbywu5655-38-86 04:50:00 * Test Item Value Reference Range Interpretation Comments Urine Specific [place] (test code = 5811-5) 1.020 1.010-1.[address] [facility] HospitalUrine oI8712-98-96 04:50:00* Test Item Value Reference Range Interpretation Comments Urine pH (test code = 89284-7) 6 5-[address] [facility] HospitalUrine Leukocyte Smycflqf8278-07-22 04:50:00* Test Item Value Reference Range Interpretation Comments Urine Leukocyte Esterase (test code = 5799-2) TRACE NEGATIVE H [facility] HospitalUrine Rzcfhrn8729-38-05 04:50:00* Test Item Value Reference Range Interpretation Comments Urine Nitrite (test code = 34153-2) NEGATIVE NEGATIVE [facility] HospitalUrine Fuxgcgd0708-71-15 04:50:00* Test Item Value Reference Range Interpretation Comments Urine Protein (test code = 5804-0) NEGATIVE NEGATIVE [facility] HospitalUrine Glucose (UA)2017-11-29 04:50:00* Test Item Value Reference Range Interpretation Comments Urine Glucose (UA) (test code = 2349-9) NEGATIVE NEGATIVE [facility] HospitalUrine Vqmyiji9759-83-83 04:50:00* Test Item Value Reference Range Interpretation Comments Urine Ketones (test code = 88853-8) NEGATIVE NEGATIVE [facility] HospitalUrine Ylgdzvsluzgf2034-84-92 04:50:00* Test Item Value Reference Range Interpretation Comments Urine Urobilinogen (test code = 56150-3) 0.2 0.2-[address] [facility] HospitalUrine Uwnhjybor4736-86-42 04:50:00* Test Item Value Reference Range Interpretation Comments Urine Bilirubin (test code = 1978-6) 1+ NEGATIVE H [facility] HospitalUrine Vbafg6888-91-86 04:50:00* Test Item Value Reference Range Interpretation Comments Urine Blood (test code = 54212-8) NEGATIVE NEGATIVE [facility] HospitalThyroid Stimulating Hormone (TSH) 2017-11-11 07:29:00* Test Item Value Reference Range Interpretation Comments Thyroid Stimulating Hormone (TSH) (test code = 62623-4) 0.386 0.350-4.[address] [facility] HospitalThyroid Stimulating Hormone (TSH) 2017-11-11 07:29:00* Test Item Value Reference Range Interpretation Comments Thyroid Stimulating Hormone (TSH) (test code = 57552-0) 0.386 0.350-4.[address] [facility] HospitalThyroid Stimulating Hormone (TSH) 2017-11-11 07:29:00* Test Item Value Reference Range Interpretation Comments Thyroid Stimulating Hormone (TSH) (test code = 88083-0) 0.386 0.350-4.[address] [facility] HospitalLipase2018-06-19 07:15:00* Test Item Value Reference Range Interpretation Comments Lipase (test code = 3040-3) [facility] HospitalLipase2018-06-19 07:15:00* Test Item Value Reference Range Interpretation Comments Lipase (test code = 3040-3) [facility] HospitalLipase2018-06-19 07:15:00* Test Item Value Reference Range Interpretation Comments Lipase (test code = 3040-3) 18 - [facility]odium Yhxbo5360-94-71 06:35:00* Test Item Value Reference Range Interpretation Comments Sodium Level (test code = 2951-2) 142 136-[address] [facility] HospitalPotassium Ndinq0274-94-62 06:35:00* Test Item Value Reference Range Interpretation Comments Potassium Level (test code = 2823-3) 4.0 3.5-5.[address] [facility] HospitalChloride Vwkdg2559-01-96 06:35:00* Test Item Value Reference Range Interpretation Comments Chloride Level (test code = 2075-0) 110 98-[address] [facility] HospitalCarbon Dioxide Uahpo2606-74-67 06:35:00* Test Item Value Reference Range Interpretation Comments Carbon Dioxide Level (test code = 2028-9) 23 22-[address] [facility] HospitalAnion Ikl5161-20-94 06:35:00* Test Item Value Reference Range Interpretation Comments Anion Gap (test code = 20443-9) 13.0 8-[address] [facility] HospitalBlood Urea Ltkplhcd1200-19-75 06:35:00* Test Item Value Reference Range Interpretation Comments Blood Urea Nitrogen (test code = 3094-0) 11 7- [facility] HospitalCreatinine2018-06-19 06:35:00* Test Item Value Reference Range Interpretation Comments Creatinine (test code = 2160-0) 1.00 0.57-1.[address] [facility] HospitalBUN/Creatinine Mtfse5260-39-84 06:35:00* Test Item Value Reference Range Interpretation Comments BUN/Creatinine Ratio (test code = 3097-3) 11 6-[address] [facility] HospitalEstimat Glomerular Filtration Rate 2017-11-11 06:35:00* Test Item Value Reference Range Interpretation Comments Estimat Glomerular Filtration Rate (test code = 20482-4) 56 >60 L Ranges were taken from the National Kidney Disease Education Program and the [place] Javier [facility] Kidney Foundation literature.Reference ranges:60 or greater: Eojnha97-68 ( for 3 consecutive months): Chronic kidney disease 15 or less: Kidney failureCHI [facility] HospitalGlucose Aiyrl8480-45-05 06:35:00* Test Item Value Reference Range Interpretation Comments Glucose Level (test code = RWC6831) 169 74-[address] [facility] HospitalCalcium Ydgte0964-99-36 06:35:00* Test Item Value Reference Range Interpretation Comments Calcium Level (test code = 35688-9) 9.2 8.4-10.[address] [facility] HospitalProthrombin Cxpp1895-78-43 06:31:00* Test Item Value Reference Range Interpretation Comments Prothrombin Time (test code = 5902-2) 19.5 11.9-14.[address] [facility] HospitalProthromb Time International Ratio 2017-11-11 06:31:00* Test Item Value Reference Range Interpretation Comments Prothromb Time International Ratio (test code = 6301-6) 1.79 Oral Anticoagulant Therapy INR Values:1. Low Intensity Therapy 1.5 - 2.02 . Moderate Intensity Therapy 2.0 - 3.03. High Intensity Therapy(1) 2.5 - 3. 54. High Intensity Therapy(2) 3.0 - 4.05. Panic Value INR > 5.[address] [facility] HospitalProthrombin Hfmj3311-62-15 06:31:00* Test Item Value Reference Range Interpretation Comments Prothrombin Time (test code = 5902-2) 19.5 11.9-14.[address] [facility] HospitalProthromb Time International Ratio 2017-11-11 06:31:00* Test Item Value Reference Range Interpretation Comments Prothromb Time International Ratio (test code = 6301-6) 1.79 Oral Anticoagulant Therapy INR Values:1. Low Intensity Therapy 1.5 - 2.02 . Moderate Intensity Therapy 2.0 - 3.03. High Intensity Therapy(1) 2.5 - 3. 54. High Intensity Therapy(2) 3.0 - 4.05. Panic Value INR > 5.[address] [facility] [facility] HospitalAmmonia2018-06-19 06:30:00* Test Item Value Reference Range Interpretation Comments Ammonia (test code = 69532-3) 182 31-[address] [facility] HospitalWhite Blood Bwqwv9139-64-24 06:11:00* Test Item Value Reference Range Interpretation Comments White Blood Count (test code = 6690-2) 4.91 4.8-10.[address] [facility] HospitalRed Blood Ajldl9588-08-16 06:11:00* Test Item Value Reference Range Interpretation Comments Red Blood Count (test code = 789-8) 3.81 3.6-5.[address] [facility] HospitalHemoglobin2018-06-19 06:11:00* Test Item Value Reference Range Interpretation Comments Hemoglobin (test code = 62562-0) 12.8 12.0-16.[address] [facility] HospitalHematocrit2018-06-19 06:11:00* Test Item Value Reference Range Interpretation Comments Hematocrit (test code = 4544-3) 38.1 34.2-44.[address] [facility] HospitalMean Corpuscular Hvzqga1489-48-33 06:11:00* Test Item Value Reference Range Interpretation Comments Mean Corpuscular Volume (test code = 787-2) 100.0 81-[address] [facility] HospitalMean Corpuscular Wovojqkrlr6384-16-83 06:11:00* Test Item Value Reference Range Interpretation Comments Mean Corpuscular Hemoglobin (test code = 785-6) 33.6 28-[address] [facility] HospitalMean Corpuscular Hemoglobin Concent 2017-11-11 06:11:00* Test Item Value Reference Range Interpretation Comments Mean Corpuscular Hemoglobin Concent (test code = 786-4) 33.6 31-[address] [facility] HospitalRed Cell Distribution Btrvr8175-44-82 06:11:00* Test Item Value Reference Range Interpretation Comments Red Cell Distribution Width (test code = 32102-8) 15.3 11.7 -14.[address] [facility] HospitalPlatelet Lfvea7900-09-46 06:11:00* Test Item Value Reference Range Interpretation Comments Platelet Count (test code = 777-3) 71 140-[address] HospitalNeutrophils (%) (Auto)2017-11-11 06:11:00 * Test Item Value Reference Range Interpretation Comments Neutrophils (%) (Auto) (test code = 73173-3) 64.0 38.7-80.[address] [facility] HospitalLymphocytes (%) (Auto)2017-11-11 06:11:00 * Test Item Value Reference Range Interpretation Comments Lymphocytes (%) (Auto) (test code = 736-9) 24.8 18.0-39.[address] [facility] HospitalMonocytes (%) (Auto)2017-11-11 06:11:00* Test Item Value Reference Range Interpretation Comments Monocytes (%) (Auto) (test code = 5905-5) 6.9 4.4-11.[address] [facility] HospitalEosinophils (%) (Auto)2017-11-11 06:11:00 * Test Item Value Reference Range Interpretation Comments Eosinophils (%) (Auto) (test code = 713-8) 3.5 0.0-6.[address] HospitalBasophils (%) (Auto)2017-11-11 06:11:00* Test Item Value Reference Range Interpretation Comments Basophils (%) (Auto) (test code = 706-2) 0.4 0.0-1.[address] [facility] HospitalIM GRANULOCYTES %2017-11-11 06:11:00* Test Item Value Reference Range Interpretation Comments IM GRANULOCYTES % (test code = IM GRANULOCYTES %) 0.4 0.0- 1.[address] [facility] HospitalNeutrophils # (Auto)2017-11-11 06:11:00* Test Item Value Reference Range Interpretation Comments Neutrophils # (Auto) (test code = 751-8) 3.1 2.1-6.[address] [facility] HospitalLymphocytes # (Auto)2017-11-11 06:11:00* Test Item Value Reference Range Interpretation Comments Lymphocytes # (Auto) (test code = 66485-3) 1.2 1.0-3.[address] [facility] HospitalMonocytes # (Auto)2017-11-11 06:11:00* Test Item Value Reference Range Interpretation Comments Monocytes # (Auto) (test code = 742-7) 0.3 0.2-0.[address] [facility] HospitalEosinophils # (Auto)2017-11-11 06:11:00* Test Item Value Reference Range Interpretation Comments Eosinophils # (Auto) (test code = 711-2) 0.2 0.0-0.[address] HospitalBasophils # (Auto)2017-11-11 06:11:00* Test Item Value Reference Range Interpretation Comments Basophils # (Auto) (test code = 704-7) 0.0 0.0-0.[address] HospitalAbsolute Immature Granulocyte (auto 2017-11-11 06:11:00* Test Item Value Reference Range Interpretation Comments Absolute Immature Granulocyte (auto ([place] t code = Absolute Immature Granulocyte (auto) 0.02 0-0.[address] HospitalBedside Rsmemnr3586-41-27 20:08:00* Test Item Value Reference Range Interpretation Comments Bedside Glucose (test code = 17297-8) 262 70-120 H Meter ID: [id number] [facility] HospitalTotal Bilirubin 2017-11-10 11:59:00* Test Item Value Reference Range Interpretation Comments Total Bilirubin (test code = 1975-2) 2.5 0.2-1.[address] [facility] HospitalAspartate Amino Transf (AST/SGOT) 2017-11-10 11:59:00* Test Item Value Reference Range Interpretation Comments Aspartate Amino Transf (AST/SGOT) (test code = Aspartate Amino Transf (AST/SGOT)) 46 5-[address] [facility] HospitalAlanine Aminotransferase (ALT/SGPT) 2017-11-10 11:59:00* Test Item Value Reference Range Interpretation Comments Alanine Aminotransferase (ALT/SGPT) (test code = 1742-6) 28 0-[address] [facility] HospitalTotal Vntrmpj0214-50-73 11:59:00* Test Item Value Reference Range Interpretation Comments Total Protein (test code = 2885-2) 6.6 6.5-8.[address] [facility] HospitalAlbumin2018-06-18 11:59:00* Test Item Value Reference Range Interpretation Comments Albumin (test code = 1751-7) 2.5 3.5-5.[address] HospitalGlobulin2018-06-18 11:59:00* Test Item Value Reference Range Interpretation Comments Globulin (test code = 89296-8) 4.1 2.3-3.[address] [facility] HospitalAlbumin/Globulin Szpzc6282-98-47 11:59:00 * Test Item Value Reference Range Interpretation Comments Albumin/Globulin Ratio (test code = 1759-0) 0.6 0.8-2.[address] [facility] HospitalAlkaline Iguwikgvumo6508-68-98 11:59:00* Test Item Value Reference Range Interpretation Comments Alkaline Phosphatase (test code = 6768-6) 223 40-[address] [facility] HospitalCreatine Mwynsu8754-95-54 11:59:00* Test Item Value Reference Range Interpretation Comments Creatine Kinase (test code = 2157-6) 84 29-[address] HospitalCreatine Kinase BI4422-93-05 11:59:00* Test Item Value Reference Range Interpretation Comments Creatine Kinase MB (test code = 97891-5) 1.70 0-5.[address] HospitalTroponin K9103-56-86 11:59:00* Test Item Value Reference Range Interpretation Comments Troponin I (test code = JNN8754) 0.079 0-0.[address] HospitalCreatine Onsgoq2091-72-13 11:59:00* Test Item Value Reference Range Interpretation Comments Creatine Kinase (test code = 2157-6) 84 29-[address] HospitalCreatine Kinase SL7607-10-79 11:59:00* Test Item Value Reference Range Interpretation Comments Creatine Kinase MB (test code = 44662-9) 1.70 0-5.[address] HospitalTroponin O7783-24-03 11:59:00* Test Item Value Reference Range Interpretation Comments Troponin I (test code = OLV7811) 0.079 0-0.[address] [facility] CenterCHE[facility] SINGLE ([facility]ABLE)2017-11-10 11:47:00 [facility] [address] [place] [address] Patient Name: DEBORAH AGUERO MR #: [id number] : 1955 Age/Sex: 62/F Req #: [id number] Adm Physician: Ordered by: JAIDEN VARNER MD Report #: [id number] Location: ER Room/Bed: Procedure: [id number] DX/CHEST SINGLE (PORTABLE) E xam Date: 11/10/17 Exam Time: 1110 REPORT STATU S: Signed PROCEDURE: A single AP view of the chest. COMPARISON: [facility], DX, CHEST SINGLE (PORTABLE), 01/10/2017, 12:33. [...] COPY TO: LÁZARO VARNER RD, MD Urine KNN3612-58-36 11:45:00* Test Item Value Reference Range Interpretation Comments Urine WBC (test code = 5821-4) 0-5 0-[address] [facility] HospitalUrine OWV4580-56-01 11:45:00* Test Item Value Reference Range Interpretation Comments Urine RBC (test code = 31248-0) NONE 0-[address] [facility] HospitalUrine Lziwqrbf2421-35-64 11:45:00* Test Item Value Reference Range Interpretation Comments Urine Bacteria (test code = 64974-6) RARE NONE [facility] HospitalUrine Epithelial Xztht6986-11-47 11:45:00 * Test Item Value Reference Range Interpretation Comments Urine Epithelial Cells (test code = 36981-0) MODERATE NONE [facility] HospitalUrine Qpbpe5666-68-95 11:35:00* Test Item Value Reference Range Interpretation Comments Urine Color (test code = 5778-6) YELLOW YELLOW [facility] HospitalUrine Vltlcwc3304-47-07 11:35:00* Test Item Value Reference Range Interpretation Comments Urine Clarity (test code = 36742-2) CLEAR CLEAR [facility] HospitalUrine Specific Pmirrrt2972-68-25 11:35:00 * Test Item Value Reference Range Interpretation Comments Urine Specific [place] (test code = 5811-5) 1.025 1.010-1.[address] [facility] HospitalUrine mR6115-62-76 11:35:00* Test Item Value Reference Range Interpretation Comments Urine pH (test code = 84021-4) 6 5-[address] [facility] HospitalUrine Leukocyte Auikmqvp6575-17-03 11:35:00* Test Item Value Reference Range Interpretation Comments Urine Leukocyte Esterase (test code = 5799-2) NEGATIVE NEGATIVE [facility] HospitalUrine Mbslghh8779-88-33 11:35:00* Test Item Value Reference Range Interpretation Comments Urine Nitrite (test code = 78810-5) NEGATIVE NEGATIVE [facility] HospitalUrine Xqtreda0257-87-63 11:35:00* Test Item Value Reference Range Interpretation Comments Urine Protein (test code = 5804-0) NEGATIVE NEGATIVE [facility] HospitalUrine Glucose (UA)2017-11-10 11:35:00* Test Item Value Reference Range Interpretation Comments Urine Glucose (UA) (test code = 2349-9) 2+ NEGATIVE H [facility] HospitalUrine Kutrluc0903-96-41 11:35:00* Test Item Value Reference Range Interpretation Comments Urine Ketones (test code = 15510-4) NEGATIVE NEGATIVE [facility] HospitalUrine Kcdpfwljdqec8692-56-12 11:35:00* Test Item Value Reference Range Interpretation Comments Urine Urobilinogen (test code = 40002-1) 0.2 0.2-[address] [facility] HospitalUrine Fgjdvpkuh3650-61-61 11:35:00* Test Item Value Reference Range Interpretation Comments Urine Bilirubin (test code = 1978-6) NEGATIVE NEGATIVE [facility] HospitalUrine Arhjo6133-05-41 11:35:00* Test Item Value Reference Range Interpretation Comments Urine Blood (test code = 64804-9) TRACE NEGATIVE H [facility] HospitalALPHA FETOPROTEIN (AFP), TUMOR MARKER 2017-09-15 12:53:00* Test Item Value Reference Range Interpretation Comments ALPHA-FETOPROTEIN (BEAKER) (test code = 1094) 3.2 ng/mL <10.0 BASIC METABOLIC SBYUN9705-09-72 12:28:00* Test Item Value Reference Range Interpretation [...] FOR DIALYSIS PATIENTS. Specimen slightly ictericHEPATIC FUNCTION ZLZOC4708-68-64 12:28:00* Test Item Value Reference Range Interpretation [...] 347) 20 U/L 6-55 Specimen slightly ictericPROTHROMBIN TIME/HHH9257-92-58 12:24:00* Test Item Value Reference Range Interpretation [...] mechanical heart valves.CBC W/PLT COUNT & AUTO [id number] 12:19:00* Test Item Value Reference Range Interpretation [...] code = 2801) 0 % 0-1 POCT-GLUCOSE [id number] 13:08:00* Test Item Value Reference Range Interpretation Comments POC-GLUCOSE METER (BEAKER) (test code = 1538) 111 mg/dL 70-110 H TESTED AT [facility] [address] [facility] [address] POCT-GLUCOSE [id number] 09:42:00* Test Item Value Reference Range Interpretation Comments POC-GLUCOSE METER (BEAKER) (test code = 1538) 128 mg/dL 70-110 H TESTED AT [facility] [address] [facility] [address] Blood [id number] 23:43:00* Test Item Value Reference Range Interpretation Comments Blood Culture (test code = 81729044) NO GROWTH AFTER 5 DAYS, FIN[facility]PORT [facility] [id number] 23:43:00* Test Item Value Reference Range Interpretation Comments Blood Culture (test code = 41150591) NO GROWTH AFTER 5 DAYS, [facility] [id number] 13:28:00* Test Item Value Reference Range Interpretation Comments Blood Culture (test code = 600-7) Organism: STAPHYLOCOCCUS SP COAG NEG [facility] [id number] 13:28:00* Test Item Value Reference Range Interpretation Comments Blood Culture (test code = 600-7) Organism: STAPHYLOCOCCUS SP COAG NEG [facility] Hospital[facility] Calcium Oxalate [id number] 23:55:00* Test Item Value Reference Range Interpretation Comments Urine Calcium Oxalate Crystals (test code = 5774-5) FEW FE W [facility] HospitalDifferential Total Cells Counted 2017-03-03 22:37:00* Test Item Value Reference Range Interpretation Comments Differential Total Cells Counted (test code = Differen tial Total Cells Counted) [address] [facility] HospitalNeutrophils % (Manual)2017-03-03 22:37:00 * Test Item Value Reference Range Interpretation Comments Neutrophils % (Manual) (test code = 72862-2) 44 40-[address] [facility] HospitalLymphocytes % (Manual)2017-03-03 22:37:00 * Test Item Value Reference Range Interpretation Comments Lymphocytes % (Manual) (test code = 737-7) 42 19-[address]Monocytes % (Manual)2017-03-03 22:37:00* Test Item Value Reference Range Interpretation Comments Monocytes % (Manual) (test code = 744-3) 7 3.4-[address] HospitalEosinophils % (Manual)2017-03-03 22:37:00 * Test Item Value Reference Range Interpretation Comments Eosinophils % (Manual) (test code = 714-6) 6 0-[address] HospitalReactive Hjrpgomvebk1511-81-19 22:37:00* Test Item Value Reference Range Interpretation Comments Reactive Lymphocytes (test code = 17378-5) [address] [facility] HospitalPlatelet Cfjzmcqf8305-23-43 22:37:00* Test Item Value Reference Range Interpretation Comments Platelet Estimate (test code = 37419-3) SLIGHTLY DECREASED [facility] HospitalPlatelet Morphology [id number] 22:37:00* Test Item Value Reference Range Interpretation Comments Platelet Morphology Comment (test code = 24187-2) NORMAL [facility] HospitalRed Cell Morphology [id number] 22:37:00* Test Item Value Reference Range Interpretation Comments Red Cell Morphology Comment (test code = 6742-1) NORMAL [facility] HospitalDifferential Total Cells Counted 2017-03-03 22:37:00* Test Item Value Reference Range Interpretation Comments Differential Total Cells Counted (test code = Differrosetta tial Total Cells Counted) [address] [address] HospitalNeutrophils % (Manual)2017-03-03 22:37:00 * Test Item Value Reference Range Interpretation Comments Neutrophils % (Manual) (test code = 51878-1) 44 40-[address] HospitalLymphocytes % (Manual)2017-03-03 22:37:00 * Test Item Value Reference Range Interpretation Comments Lymphocytes % (Manual) (test code = 737-7) 42 19-[address] HospitalMonocytes % (Manual)2017-03-03 22:37:00* Test Item Value Reference Range Interpretation Comments Monocytes % (Manual) (test code = 744-3) 7 3.4-[address] [facility] HospitalEosinophils % (Manual)2017-03-03 22:37:00 * Test Item Value Reference Range Interpretation Comments Eosinophils % (Manual) (test code = 714-6) 6 0-[address] HospitalReactive [id number] 22:37:00* Test Item Value Reference Range Interpretation Comments Reactive Lymphocytes (test code = 48253-4) [address] [facility] HospitalPlatelet [id number] 22:37:00* Test Item Value Reference Range Interpretation Comments Platelet Estimate (test code = 20452-4) SLIGHTLY DECREASED [facility] HospitalPlatelet Morphology [id number] 22:37:00* Test Item Value Reference Range Interpretation Comments Platelet Morphology Comment (test code = 99046-6) NORMAL [facility] HospitalRed Cell Morphology Kqvakri9182-04-53 22:37:00* Test Item Value Reference Range Interpretation Comments Red Cell Morphology Comment (test code = 6742-1) NORMAL [facility] HospitalMagnesium [id number] 21:53:00* Test Item Value Reference Range Interpretation Comments Magnesium Level (test code = 09865-5) 1.5 1.3-2.[address] [address] HospitalMagnesium [id number] 21:53:00* Test Item Value Reference Range Interpretation Comments Magnesium Level (test code = 94450-6) 1.5 1.3-[address] HospitalActivated Partial Thromboplast Time 2017-03-03 21:45:00* Test Item Value Reference Range Interpretation Comments Activated Partial Thromboplast Time (test code = 98895-9) 40.2 23.8-35.[address] [facility] HospitalAct[facility] Partial Thromboplast Time 2017-03-03 21:45:00* Test Item Value Reference Range Interpretation Comments Activated Partial Thromboplast Time (test code = 70276-5) 40.2 23.8-35.[address] [facility] HospitalCT ABDOMEN/PELVIS WO [facility] [address] [place] [address] Patient Name: DEBORAH AGUERO MR #: [id number] : 1955 Age/Sex: 61/F Req #: [id number] Adm Physician: Ordered by: FRANCES MCNEILL MD Report #: [id number] Location: ER Room/Bed: Procedure: [id number] CT/CT ABDOMEN/PELVIS WO Exam D ate: Exam [...] PM Dictated By: ANA CRISTINA SHEEHAN MD [id number] Transcribed By: LIV on 03/03 9032 COPY TO: FRANCES MCNEILL MD CHEST SINGLE (PORTABLE) [facility] [address] [address] Patient Name: DEBORAH AUGERO MR #: [id number] : 0 1955 Age/Sex: 61/F Req #: [id number] Adm Physician: Ordered by: JAIDEN PALMER MD Report #: [id number] Location: ER Room/Be d: Procedure: [id number] DX/CHEST SINGLE (PORTABLE) E xam Date: 01/10/17 Exam Time: 1235 REPORT STATU S: Signed PROCEDURE: A single AP view of the chest. COMPARISON: [facility], DX, CHEST SINGLE (PORTABLE), 12/02/2016, 21:04. [...] TO: JAIDEN PALMER MD CT BRAIN WO [place] [id number] Patient Name: DEBORAH AGUERO MR #: [id number] : 1955 Age/Sex: 61/F [facility] #: [id number] Req #: [id number] Adm Physician: Ordered by: JAIDEN PALMER MD Report #: [id number] Location: ER Room/Bed: Procedure: [id number] CT/CT BRAIN WO Exam Date: Exam Time: [...]
--- NOTE | 2020-02-27 06:19 | NUR ---
PATIENT ARRIVED TO THE FLOOR VIA GURNEY ESCORTED BY ONLINE JOURNALIST, PATIENT AWAKE NO DISTRESS NOTED, ADMISSION PROCESS STARTED, IV PATENT CALL LIGHT WITHIN REACH
--- NOTE | 2020-02-27 07:35 | NUR ---
SBAR REPORT GIVEN TO DAYSHIFT RN, PATIENT IN BED RESTING NO DISTRESS NOTED, CALL LIGHT WITHIN REACH
[2020-02-27] MEDS ORDERED: SPIRONOLACTONE25 MG PO (08:26)
[2020-02-27] MEDS ORDERED: LANTUS 3ML100 UNITS/ SQ (08:26)
[2020-02-27] MEDS ORDERED: VITAMIN D PEG (08:26)
[2020-02-27] MEDS ORDERED: DEXTROSE 50% SYRINGE 50 ML IV PRN (08:45)
[2020-02-27] MEDS: INSULIN GLARGINE 100 UNITS/ML VIAL SQ SCH (09:30)
[2020-02-27] MEDS: INSULIN LISPRO 100 UNIT/1 ML 3ML VIAL SQ SCH ×5 (09:40→20:22)
[2020-02-27 14:49] LABS: ANION GAP 12.8 mmol/L (8-16); CREATININE, SERUM 1.95 mg/dL (0.57-1.11); POTASSIUM 3.8 mmol/L (3.5-5.1)
--- NOTE | 2020-02-27 16:30 | NUR ---
Instructed patient to use walker to go to the bathroom. Patient states "I am okay, I do not need it." Instructed patient to call for assistance.
[2020-02-27] MEDS: LACTULOSE SYRUP 20 GM/30 ML UDC PO SCH (16:35)
--- NOTE | 2020-02-27 18:05 | NUR ---
Unwitnessed fall. Patient sitting on the floor attempting to put pants on. Patient states "I was trying to put on my pants, I tripped over my oxygen cord and fell." Assisted patient with PCT Fadumo to stand up. Patient back in bed, side rails upx2, call light within reach, bed alarm on. Notified of fall. No new orders
--- NOTE | 2020-02-27 18:08 | NUR ---
Attempted to notify Fredy Jermaine at [phone] to notify of fall and received unavailable message. Attempted to contact Viji (daughter) at [phone] but sent to voicemail. Left message to call back .
--- NOTE | 2020-02-27 19:10 | NUR ---
Report given to oncoming nurse of patient's status. Resting in bed. No s/s of acute distress noted. Side rails upx2, call light within reach, bed alarm on.
--- NOTE | 2020-02-27 19:11 | NUR ---
Viji (daughter) at [phone] aware of fall. States, "My mom is hardheaded, likes doing things on her own."
--- NOTE | 2020-02-27 19:15 | NUR ---
Patient visited in room during nursing rounds. Patient alert and oriented x3. Per report received keon virgen RN (Lyndsay), pt had a fall event around 1800 today in her hospital room (Rm 213). Pt denies any discomfort and per report, Dr. Pradhan and family aware of fall event. Patient ambulatory with standby assist prn. Pt strictly instructed to call whenever she needs to get up and walk or go to the bathroom. Bed alarm active. Call mata within reach. Will monitor pt closely.
--- NOTE | 2020-02-27 20:11 | NUR ---
Called Dr. Pradhan and asked about home med reconciliation. stated he thinks its not a priority at this time and that he will address it himself when necessary.
[2020-02-27] MEDS: MELATONIN 3 MG TAB PO SCH (20:43)
--- NOTE | 2020-02-27 21:08 | History and Physical ---
PRIMARY CARE DOCTOR: Dr. Yoandy Dorman. CHIEF COMPLAINT: Abdominal pain. HISTORY OF PRESENT ILLNESS: This is a 64-year-old woman, well known to me, just discharged her from [facility] 2 months ago for shortness of breath, recurrent hepatic hydrothorax, status post arthrocentesis. Apparently, the patient was just discharged 2 days ago from [facility]. She went in with back pain and had spine surgery done, however, details are not clear. The patient stated that after she went home and subsequently, developed left-sided abdominal pain, progressively got worse. Therefore, she came over here. The patient denies any nausea or vomiting. Still eating okay. Her last BM was yesterday morning. At this time, no chest pain, no shortness of breath. PAST MEDICAL AND SURGICAL HISTORY: 1. Hepatitis C cirrhosis. 2. Diabetes. 3. Hypertension. 4. Hypothyroidism. 5. Previous cholecystectomy. MEDICATIONS: Please see medication reconciliation form. ALLERGIES: NONE. SOCIAL HISTORY: No alcohol. FAMILY HISTORY: Positive for diabetes. REVIEW OF SYSTEMS: A 10-point review of systems obtained and nothing else is significant other than what is stated in HPI. PHYSICAL EXAMINATION: VITAL SIGNS: Temperature 98.1, pulse 79, respiratory rate 20, and blood pressure 145/70. GENERAL: No acute distress. SKIN: No rash. HEENT: Anicteric. Oropharynx is clear. LUNGS: Decreased. No wheeze. ABDOMEN: Soft and nondistended. Left-sided mild tenderness to palpation. NEUROLOGIC: Alert and oriented x3. Cranial nerves 2 through 12 grossly intact. PSYCHIATRIC: No hallucination. MUSCULOSKELETAL: Painless range of motion. LABORATORY DATA: White count 12, hemoglobin 12, and platelet count 106. Creatinine initially 2.2, now is 1.95,. Sugar 323. Total bilirubin is 3, which is about her baseline. CT of the abdomen and pelvis is consistent with constipation, small volume ascites, mild anasarca, and persistent bilateral pleural effusion. ASSESSMENT AND PLAN: 1. Abdominal pain, likely due to constipation. We will put her on lactulose and reassess after good bowel movement. 2. Acute kidney injury, unclear of etiology, possibly due to decreased p.o. intake on top of being on aldactone and Lasix. The patient got IV fluid. Creatinine slightly coming down. We will discontinue IV fluids given the recurrent pleural effusion. 3. History of hepatic hydrothorax. We will repeat chest x-ray in the morning. 4. Diabetes with hyperglycemia. We will start Lantus along with sliding scale. 5. Gastrointestinal and deep venous thrombosis prophylaxis. No chemical deep venous thrombosis prophylaxis due to thrombocytopenia in the setting of cirrhosis 6. Hyponatremia. IV fluid. resolved. Yiching MD NIURKA Sumner/MODL /[id number] cc: [facility] Kahlil LASSITER
[2020-02-28] VITALS (8 sets, daily range): BP systolic 126–143; BP diastolic 57–89
[2020-02-28 06:24] LABS: BASOPHILS % 0.1 % (0.0-1.0); EOSINOPHILS # (AUTO) 0.2 (0.0-0.4); EOSINOPHILS % 3.2 % (0.0-6.0); HEMATOCRIT 36.6 % (34.2-44.1); HEMOGLOBIN 11.9 g/dL (12.0-16.0); LYMPHOCYTES # (AUTO) 1.4 (1.0-3.2); LYMPHOCYTES % 19.1 % (18.0-39.1); MEAN CORPUSCULAR HEMOGLOBIN 33.8 pg (28-32); MEAN CORPUSCULAR HGB CONC 32.5 g/dL (31-35); MONOCYTES # (AUTO) 1.1 (0.2-0.8); MONOCYTES % 14.5 % (4.4-11.3); NEUTROPHILS # (AUTO) 4.7 (2.1-6.9); NEUTROPHILS % 62.3 % (38.7-80.0); PLATELET COUNT 84 x10e3/uL (140-360); RED BLOOD COUNT 3.52 x10e6/uL (3.6-5.1); RED CELL DISTRIBUTION WIDTH 16.1 % (11.7-14.4)
[2020-02-28 06:57] LABS: ALBUMIN 2.4 g/dL (3.5-5.0); ALBUMIN/GLOBULIN RATIO 0.7 (0.8-2.0); ANION GAP 10.3 mmol/L (8-16); CALCIUM 9.1 mg/dL (8.4-10.2); CREATININE, SERUM 1.85 mg/dL (0.57-1.11); POTASSIUM 4.3 mmol/L (3.5-5.1)
--- NOTE | 2020-02-28 07:04 | NUR ---
bedside shift report received from IZZY Campos. pt resting comfortably, respirations even and nonlabored, easily aroused. no s/s distress noted. all safety measures in place. will continue to monitor.
[2020-02-28] MEDS: INSULIN LISPRO 100 UNIT/1 ML 3ML VIAL SQ SCH ×4 (08:15→21:19)
[2020-02-28 09:01] LABS: PLATELET ESTIMATE MODERATELY DECREASED; PLATELET MORPHOLOGY COMMENT NORMAL
--- NOTE | 2020-02-28 09:08 | Diagnostic Imaging Report ---
EXAMINATION: CHEST SINGLE (PORTABLE) INDICATION: Shortness of breath COMPARISON: Chest radiograph 01/05/2020 FINDINGS: LINES/TUBES:EKG leads overlie the chest. LUNGS:The lungs are moderately inflated. There is perihilar fullness and indistinctness of the pulmonary vasculature. Mild left basilar patchy opacities. PLEURA:Trace bilateral pleural effusion. No pneumothorax. MEDIASTINUM:The cardiac silhouette is magnified due to portable technique. BONES/SOFT TISSUES:No acute osseous injury. ABDOMEN:No free air under the diaphragm. IMPRESSION: Mild left basilar opacity, most likely subsegmental atelectasis. Trace bilateral pleural effusion. Signed by: Zohaib Haque MD on 02/28/2020 9:05 AM
[2020-02-28] MEDS: LACTULOSE SYRUP 20 GM/30 ML UDC PO SCH ×2 (09:37→18:45)
[2020-02-28] MEDS: INSULIN GLARGINE 100 UNITS/ML VIAL SQ SCH (09:38)
[2020-02-28] MEDS ORDERED: PROPRANOLOL HCL 40 MG TAB PO SCH (11:00)
--- NOTE | 2020-02-28 16:24 | NUR ---
PT SENT TO R1 FOR LOC. [facility] WANTS TO REASSESS RENAL FUNCTION IN THE AM. PLAN TO DC HOME IF STABLE.
[2020-02-28] MEDS: BACITRACIN ZINC 15 GM OINT TOP SCH (17:45)
[2020-02-28] MEDS: PROPRANOLOL HCL 10 MG TAB PO SCH (18:44)
--- NOTE | 2020-02-28 19:00 | NUR ---
Resumed care of patient. Patient awake and resting in bed, respirations even and unlabored on 2L NC, no s/s of distress at this time. Bed locked and in lowest position, side rails upx2, alarm on, call light placed within reach. Patient instructed to call for assistance if needed, verbalized understanding. All safety measures in place.
[2020-02-28] MEDS ORDERED: INSULIN GLARGINE 100 UNITS/ML VIAL SQ SCH (21:00)
[2020-02-28] MEDS: MELATONIN 3 MG TAB PO SCH (21:19)
--- NOTE | 2020-02-28 21:55 | Progress Note ---
DATE: 02/28/2020 SUBJECTIVE: Abdominal pain better after bowel movement. OBJECTIVE: VITAL SIGNS: Temperature 97.8, pulse 73, respiratory rate 18, and blood pressure 135/89. GENERAL: No acute distress. SKIN: No rash. LUNGS: Clear. HEART: Regular rate and rhythm. Normal S1 and S2. GI: Abdomen is soft and nontender. NEUROLOGIC: Alert and oriented x3. PSYCHIATRIC: No hallucination. LABORATORY DATA: White count 7.5, hemoglobin 11.9, and platelet count 84. Creatinine 1.85. ASSESSMENT AND PLAN: 1. Abdominal pain due to constipation. We will continue lactulose. We would like her to have more bowel movement. 2. Acute kidney injury, likely due to dehydration. Creatinine is getting better slowly. We will repeat creatinine in the morning. We will not give any more IV fluid given history of hepatic hydrothorax. 3. History of hepatic hydrothorax. Again, we will repeat chest x-ray in the morning to monitor. 4. Diabetes with hyperglycemia. We will add bedtime dosage of Lantus in addition to morning dosage. 5. Hyponatremia, resolved. 6. Gastrointestinal and deep venous thrombosis prophylaxis. No chemical deep venous thrombosis prophylaxis due to thrombocytopenia in the setting of cirrhosis. 7. Disposition, likely home tomorrow if continue to improve. MD NIURKA Hernandez/NICHOLE /[id number]
[2020-02-29] VITALS: BP 153/78
[2020-02-29 04:00] VITALS: BP 124/60
[2020-02-29 06:10] LABS: ANION GAP 9.7 mmol/L (8-16); CALCIUM 9.3 mg/dL (8.4-10.2); CREATININE, SERUM 1.61 mg/dL (0.57-1.11); POTASSIUM 4.7 mmol/L (3.5-5.1)
[2020-02-29 06:13] LABS: BASOPHILS % 0.2 % (0.0-1.0); EOSINOPHILS # (AUTO) 0.3 (0.0-0.4); EOSINOPHILS % 5.8 % (0.0-6.0); HEMOGLOBIN 11.5 g/dL (12.0-16.0); LYMPHOCYTES # (AUTO) 1.3 (1.0-3.2); MEAN CORPUSCULAR HEMOGLOBIN 33.6 pg (28-32); MEAN CORPUSCULAR HGB CONC 32.9 g/dL (31-35); MEAN CORPUSCULAR VOLUME 102.3 fL (81-99); MONOCYTES # (AUTO) 0.8 (0.2-0.8); MONOCYTES % 14.5 % (4.4-11.3); NEUTROPHILS # (AUTO) 3.1 (2.1-6.9); NEUTROPHILS % 55.4 % (38.7-80.0); PLATELET COUNT 59 x10e3/uL (140-360); RED BLOOD COUNT 3.42 x10e6/uL (3.6-5.1); RED CELL DISTRIBUTION WIDTH 16.1 % (11.7-14.4)
--- NOTE | 2020-02-29 06:59 | NUR ---
Bedside report given to oncoming nurse. Patient resting quietly in bed, respirations even and unlabored on 2L NC, no s/s of distress at this time. All safety measures in place.
[2020-02-29 08:05] VITALS: BP 126/57
[2020-02-29] MEDS: INSULIN LISPRO 100 UNIT/1 ML 3ML VIAL SQ SCH ×2 (08:15→12:01)
[2020-02-29 08:33] VITALS: BP 126/57
--- NOTE | 2020-02-29 09:02 | Diagnostic Imaging Report ---
EXAMINATION: CHEST SINGLE (PORTABLE) INDICATION: Anasarca, acute kidney injury COMPARISON: Chest radiograph 02/28/2020 FINDINGS: LINES/TUBES:EKG leads overlie the chest. LUNGS:The lungs are moderately inflated. There is perihilar fullness and indistinctness of the pulmonary vasculature. No focal consolidation. PLEURA:No pleural effusion or pneumothorax. MEDIASTINUM:The cardiomediastinal silhouette appears normal in size and shape. Atherosclerotic calcifications of the thoracic aorta. BONES/SOFT TISSUES:No acute osseous injury. ABDOMEN:No free air under the diaphragm. IMPRESSION: Central pulmonary vascular congestion. No focal pneumonia. Signed by: Zohaib Haque MD on 02/29/2020 8:58 AM
--- NOTE | 2020-02-29 09:20 | NUR ---
spoke with Dr. Pradhan who states pt will be discharged after he comes and sees the patient.
[2020-02-29] MEDS: INSULIN GLARGINE 100 UNITS/ML VIAL SQ SCH (09:22)
[2020-02-29] MEDS: LACTULOSE SYRUP 20 GM/30 ML UDC PO SCH (09:48)
[2020-02-29] MEDS: BACITRACIN ZINC 15 GM OINT TOP SCH (09:48)
[2020-02-29] MEDS: PROPRANOLOL HCL 10 MG TAB PO SCH (09:49)
[2020-02-29 12:09] VITALS: BP 149/66
[2020-02-29] MEDS ORDERED: ALDACTONE25 MG PO (13:28)
[2020-02-29] MEDS ORDERED: PROPRANOLOL HCL10 MG PO (13:29)
[2020-02-29] MEDS ORDERED: LASIX40 MG PO (13:29)
--- NOTE | 2020-02-29 21:20 | Discharge Summary ---
PRIMARY CARE DOCTOR: Dr. Yoandy Dorman. FINAL DIAGNOSIS: Abdominal pain due to constipation. SECONDARY DIAGNOSES: 1. Acute kidney injury, resolving. 2. Hepatitis C cirrhosis with history of hepatic hydrothorax, requiring thoracentesis. 3. Diabetes. 4. Hypertension. 5. Hypothyroidism. CONSULTANTS: None. PROCEDURES AND STUDIES PERFORMED: CT of the abdomen and pelvis. HISTORY: Per dictated H and P. HOSPITAL COURSE: The patient was discharged from [facility] after a laminectomy on the evening of the day of the discharge, the patient presented to us with abdominal pain and elevated creatinine. The patient was given lactulose and now her abdominal pain is much better. The patient has acute kidney injury, likely due to prerenal azotemia. The patient got some IV fluid and her creatinine is slowly getting better. The baseline is 1.1, on admission it was 2.2, on the day of discharge it was 1.6. I was hesitant to give her too much of IV fluids given her history of hepatic hydrothorax. The patient also has some diabetes with hyperglycemia with the Lantus. This got better. Her hyponatremia resolved as well after IV fluid. The patient was seen and examined today. CONDITION ON DISCHARGE: Improved. DISCHARGE MEDICATIONS: Please see medication reconciliation form. I have updated her primary care doctor. MD NIURKA Hernandez/MODL /[id number] cc: [facility]
== END 2020-02-29 13:42 | disposition home or self-care (01) ==
LOC: ER 02:29 → ERHOLD 05:58 → MED/SURG2 06:12
PROVIDERS: ADMIT Internal Medicine; ATTEND Internal Medicine
DX: K59.00 Constipation, unspecified (principal); B19.20 Unspecified viral hepatitis C without hepatic coma; K74.60 Unspecified cirrhosis of liver; E11.9 Type 2 diabetes mellitus without complications; I10 Essential (primary) hypertension; E03.9 Hypothyroidism, unspecified; Z11.59 Encounter for screening for other viral diseases
CPT/HCPCS: 36415 ×3; 71045 ×2; 74176; 80048 ×2; 80053 ×2; 81001; 82948 ×3; 83690; 83880; 85025 ×3; 96372; 99251; 99284; G0378 ×3; J1815; J7030; U0002; J1817

== ENCOUNTER 2020-03-19 17:29 | Inpatient (IN) | payer MEDICARE ==
[~2020-03-19] VITALS: Ht 165.1 cm; Wt 105.2 kg
[~2020-03-19 17:29] MED LIST changes: +ALDACTONE25 MG PO; +VITAMIN D PEG
[2020-03-19 18:48] LABS: BASOPHILS % 0.8 % (0.0-1.0); EOSINOPHILS # (AUTO) 0.2 (0.0-0.4); EOSINOPHILS % 4.4 % (0.0-6.0); HEMATOCRIT 34.3 % (34.2-44.1); HEMOGLOBIN 11.3 g/dL (12.0-16.0); LYMPHOCYTES # (AUTO) 1.4 (1.0-3.2); LYMPHOCYTES % 28.5 % (18.0-39.1); MEAN CORPUSCULAR HEMOGLOBIN 32.5 pg (28-32); MEAN CORPUSCULAR HGB CONC 32.9 g/dL (31-35); MEAN CORPUSCULAR VOLUME 98.6 fL (81-99); MONOCYTES # (AUTO) 0.6 (0.2-0.8); MONOCYTES % 11.6 % (4.4-11.3); NEUTROPHILS # (AUTO) 2.7 (2.1-6.9); NEUTROPHILS % 54.1 % (38.7-80.0); PLATELET COUNT 113 x10e3/uL (140-360); RED BLOOD COUNT 3.48 x10e6/uL (3.6-5.1); RED CELL DISTRIBUTION WIDTH 16.3 % (11.7-14.4)
[2020-03-19 19:01] LABS: INR 1.87; PARTIAL THROMBOPLASTIN TIME 38.3 seconds (23.8-35.5); PROTHROMBIN TIME 22.4 seconds (11.9-14.5)
[2020-03-19 19:08] LABS: ALANINE AMINOTRANSFERASE 33 IU/L (0-55); ALBUMIN 2.2 g/dL (3.5-5.0); ALBUMIN/GLOBULIN RATIO 0.6 (0.8-2.0); ALKALINE PHOSPHATASE 241 IU/L (40-150); BLOOD UREA NITROGEN 10 mg/dL (7-26); BUN/CREATININE RATIO 7 (6-25); CALCIUM 8.6 mg/dL (8.4-10.2); CARBON DIOXIDE 29 mmol/L (22-29); CHLORIDE 107 mmol/L (98-107); CREATINE KINASE 105 IU/L (29-168); EST GLOMERULAR FILTRATION RATE 38 ML/MIN (60-); GLUCOSE 294 mg/dL (74-118); SODIUM 141 mmol/L (136-145)
[2020-03-19 19:37] LABS: BILIRUBIN,URINE NEGATIVE (NEGATIVE); CLARITY,URINE CLEAR (CLEAR); COLOR,URINE YELLOW (YELLOW); KETONES,URINE NEGATIVE (NEGATIVE); LEUKOCYTE ESTERASE ,URINE TRACE (NEGATIVE); NITRITE,URINE NEGATIVE (NEGATIVE); PROTEIN,URINE DIPSTICK NEGATIVE (NEGATIVE); URINE UROBILINOGEN 0.2 mg/dL (0.2 - 1)
[2020-03-19 19:45] LABS: WBC,URINE (MAN) 0-5 /HPF (0-5)
[2020-03-19 19:46] LABS: BACTERIA,URINE MODERATE /HPF; EPITHELIAL CELLS,URINE MODERATE /LPF
[2020-03-19 20:00] VITALS: BP 153/65
[2020-03-19] MEDS ORDERED: MORPHINE SULFATE INJ 4 MG/ML INJ 1ML IV PRN (20:00)
[2020-03-19] MEDS ORDERED: ONDANSETRON HCL INJ 2MG/ML 2ML 2 MG/ML VIAL IV PRN (20:00)
[2020-03-19] MEDS: SODIUM CHLORIDE 0.9% 1000ML 1,000 ML IV SCH (20:50)
[2020-03-19] MEDS: PIPER-TAZ 3.375 GM 50 ML IV SCH (20:50)
[2020-03-19] MEDS ORDERED: ALBUTEROL SULFATE HFA 8GM INHALATION AEROSOL INH SCH (21:15)
[2020-03-19] MEDS ORDERED: ACETAMINOPHEN 325 MG TAB PO PRN (21:15)
[2020-03-19] MEDS ORDERED: MORPHINE SULFATE 2 MG/ML SYR 1ML IV PRN (21:30)
[2020-03-19] MEDS ORDERED: DEXTROSE 50% SYRINGE 50 ML IV PRN (21:30)
[2020-03-19 21:45] VITALS: BP 153/65
[2020-03-19] MEDS: INSULIN GLARGINE 100 UNITS/ML VIAL SQ SCH (22:10)
[2020-03-19 22:41] VITALS: BP 153/65
[2020-03-20] VITALS (8 sets, daily range): BP systolic 131–170; BP diastolic 61–89
[2020-03-20] MEDS: PIPER-TAZ 3.375 GM 50 ML IV SCH ×4 (00:13→18:00)
[2020-03-20 06:15] LABS: BASOPHILS # (AUTO) 0.1 (0.0-0.1); BASOPHILS % 1.1 % (0.0-1.0); EOSINOPHILS # (AUTO) 0.3 (0.0-0.4); EOSINOPHILS % 6.8 % (0.0-6.0); HEMATOCRIT 34.9 % (34.2-44.1); HEMOGLOBIN 11.5 g/dL (12.0-16.0); LYMPHOCYTES # (AUTO) 1.5 (1.0-3.2); LYMPHOCYTES % 33.9 % (18.0-39.1); MEAN CORPUSCULAR HEMOGLOBIN 33.6 pg (28-32); MONOCYTES # (AUTO) 0.5 (0.2-0.8); MONOCYTES % 12.2 % (4.4-11.3); NEUTROPHILS % 45.5 % (38.7-80.0); PLATELET COUNT 86 x10e3/uL (140-360); RED BLOOD COUNT 3.42 x10e6/uL (3.6-5.1); RED CELL DISTRIBUTION WIDTH 16.4 % (11.7-14.4)
[2020-03-20 06:51] LABS: ALBUMIN/GLOBULIN RATIO 0.5 (0.8-2.0); ANION GAP 13.4 mmol/L (8-16); CALCIUM 8.4 mg/dL (8.4-10.2); CREATININE, SERUM 1.12 mg/dL (0.57-1.11); POTASSIUM 3.4 mmol/L (3.5-5.1)
[2020-03-20] MEDS: INSULIN REGULAR, HUMAN 100 UNIT/1 ML 3ML VIAL SQ SCH ×4 (07:30→21:00)
[2020-03-20] MEDS: LEVOTHYROXINE SODIUM 125 MCG TAB PO SCH (08:00)
[2020-03-20] MEDS: PANTOPRAZOLE SOD 40 MG TABEC PO SCH (08:00)
[2020-03-20 08:56] LABS: PLATELET ESTIMATE MODERATELY DECREASED; PLATELET MORPHOLOGY COMMENT NORMAL
[2020-03-20] MEDS: RIFAXIMIN 550 MG TABLET PO SCH ×2 (09:00→17:48)
[2020-03-20] MEDS: SPIRONOLACTONE 25 MG TAB PO SCH (09:00)
[2020-03-20] MEDS: LACTULOSE SYRUP 20 GM/30 ML UDC PO SCH ×2 (09:00→17:48)
[2020-03-20] MEDS: PROPRANOLOL HCL 10 MG TAB PO SCH ×2 (09:12→17:48)
[2020-03-20] MEDS: SODIUM CHLORIDE 0.9% 1000ML 1,000 ML IV SCH (12:03)
[2020-03-20] MEDS ORDERED: POTASSIUM CHLORIDE 10MEQ EA PO ONE (16:30)
[2020-03-20] MEDS: INSULIN GLARGINE 100 UNITS/ML VIAL SQ SCH (21:00)
[2020-03-21] VITALS (8 sets, daily range): BP systolic 131–165; BP diastolic 56–69
[2020-03-21] MEDS: PIPER-TAZ 3.375 GM 50 ML IV SCH ×5 (00:14→22:48)
[2020-03-21] MEDS ORDERED: SODIUM CHLORIDE 0.9% 1000ML 1,000 ML IV SCH (03:45)
[2020-03-21 06:46] LABS: BASOPHILS % 0.4 % (0.0-1.0); EOSINOPHILS # (AUTO) 0.3 (0.0-0.4); EOSINOPHILS % 5.4 % (0.0-6.0); HEMATOCRIT 33.5 % (34.2-44.1); LYMPHOCYTES # (AUTO) 1.8 (1.0-3.2); LYMPHOCYTES % 31.9 % (18.0-39.1); MEAN CORPUSCULAR HEMOGLOBIN 32.6 pg (28-32); MEAN CORPUSCULAR HGB CONC 32.8 g/dL (31-35); MEAN CORPUSCULAR VOLUME 99.4 fL (81-99); MONOCYTES # (AUTO) 0.6 (0.2-0.8); MONOCYTES % 11.2 % (4.4-11.3); NEUTROPHILS # (AUTO) 2.9 (2.1-6.9); NEUTROPHILS % 50.4 % (38.7-80.0); PLATELET COUNT 98 x10e3/uL (140-360); RED BLOOD COUNT 3.37 x10e6/uL (3.6-5.1); RED CELL DISTRIBUTION WIDTH 16.4 % (11.7-14.4)
[2020-03-21 07:17] LABS: ALBUMIN 2.1 g/dL (3.5-5.0); ALBUMIN/GLOBULIN RATIO 0.6 (0.8-2.0); ANION GAP 10.6 mmol/L (8-16); CALCIUM 8.3 mg/dL (8.4-10.2); CREATININE, SERUM 1.38 mg/dL (0.57-1.11); POTASSIUM 3.6 mmol/L (3.5-5.1)
[2020-03-21] MEDS: INSULIN REGULAR, HUMAN 100 UNIT/1 ML 3ML VIAL SQ SCH ×4 (07:30→21:00)
[2020-03-21] MEDS: SPIRONOLACTONE 25 MG TAB PO SCH (08:32)
[2020-03-21] MEDS: LEVOTHYROXINE SODIUM 125 MCG TAB PO SCH (08:32)
[2020-03-21] MEDS: RIFAXIMIN 550 MG TABLET PO SCH ×2 (08:35→17:12)
[2020-03-21] MEDS: LACTULOSE SYRUP 20 GM/30 ML UDC PO SCH ×2 (08:35→17:12)
[2020-03-21] MEDS: PROPRANOLOL HCL 10 MG TAB PO SCH ×3 (08:35→17:13)
[2020-03-21] MEDS: PANTOPRAZOLE SOD 40 MG TABEC PO SCH (08:36)
[2020-03-21] MEDS: FUROSEMIDE 40 MG TAB PO SCH (11:23)
[2020-03-21] MEDS: INSULIN GLARGINE 100 UNITS/ML VIAL SQ SCH (21:00)
[2020-03-22 00:48] VITALS: BP 154/66
[2020-03-22 05:18] VITALS: BP 128/54
[2020-03-22] MEDS: PIPER-TAZ 3.375 GM 50 ML IV SCH ×2 (06:00→13:22)
[2020-03-22 06:37] LABS: ANION GAP 13.4 mmol/L (8-16); CALCIUM 8.5 mg/dL (8.4-10.2); CREATININE, SERUM 1.4 mg/dL (0.57-1.11); POTASSIUM 3.4 mmol/L (3.5-5.1)
[2020-03-22 06:38] LABS: BASOPHILS % 0.5 % (0.0-1.0); EOSINOPHILS # (AUTO) 0.3 (0.0-0.4); HEMATOCRIT 32.5 % (34.2-44.1); HEMOGLOBIN 10.7 g/dL (12.0-16.0); LYMPHOCYTES % 31.4 % (18.0-39.1); MEAN CORPUSCULAR HEMOGLOBIN 32.4 pg (28-32); MEAN CORPUSCULAR HGB CONC 32.9 g/dL (31-35); MEAN CORPUSCULAR VOLUME 98.5 fL (81-99); MONOCYTES # (AUTO) 0.6 (0.2-0.8); MONOCYTES % 9.9 % (4.4-11.3); NEUTROPHILS # (AUTO) 3.4 (2.1-6.9); NEUTROPHILS % 52.7 % (38.7-80.0); PLATELET COUNT 97 x10e3/uL (140-360); RED CELL DISTRIBUTION WIDTH 16.4 % (11.7-14.4)
[2020-03-22] MEDS: LEVOTHYROXINE SODIUM 125 MCG TAB PO SCH (07:44)
[2020-03-22] MEDS: PANTOPRAZOLE SOD 40 MG TABEC PO SCH (07:44)
[2020-03-22 07:53] VITALS: BP 136/65
[2020-03-22 08:02] VITALS: BP 136/65
[2020-03-22] MEDS: LACTULOSE SYRUP 20 GM/30 ML UDC PO SCH (08:44)
[2020-03-22] MEDS: INSULIN REGULAR, HUMAN 100 UNIT/1 ML 3ML VIAL SQ SCH ×2 (08:47→12:15)
[2020-03-22] MEDS: SPIRONOLACTONE 25 MG TAB PO SCH (08:47)
[2020-03-22] MEDS: RIFAXIMIN 550 MG TABLET PO SCH (08:48)
[2020-03-22] MEDS: PROPRANOLOL HCL 10 MG TAB PO SCH (08:48)
[2020-03-22] MEDS: FUROSEMIDE 40 MG TAB PO SCH (08:48)
[2020-03-22 11:48] VITALS: BP 137/58
[2020-03-22] MEDS ORDERED: POTASSIUM CHLORIDE 10MEQ EA PO NR (14:00)
[2020-03-22] MEDS ORDERED: LEVOFLOXACIN500 MG PO (15:20)
== END 2020-03-22 16:39 | disposition home or self-care (01) | DRG 442 ==
LOC: ER 17:45 → ERHOLD 20:14 → OBSVTOIN 20:14 → MED/SURG3 21:07
PROVIDERS: ADMIT Internal Medicine; ATTEND Internal Medicine
DX: K72.90 Hepatic failure, unspecified without coma (principal); N39.0 Urinary tract infection, site not specified; N17.9 Acute kidney failure, unspecified; Z16.12 Extended spectrum beta lactamase (ESBL) resistance; K74.60 Unspecified cirrhosis of liver; B19.20 Unspecified viral hepatitis C without hepatic coma; I10 Essential (primary) hypertension; E11.9 Type 2 diabetes mellitus without complications; E03.9 Hypothyroidism, unspecified; E87.6 Hypokalemia; D69.59 Other secondary thrombocytopenia; Z11.59 Encounter for screening for other viral diseases; B96.1 Klebsiella pneumoniae [K. pneumoniae] as the cause of diseases classified elsewhere
CPT/HCPCS: 36415; 70450; 71045; 80048; 80053; 81001; 82140; 82550; 82553; 82948; 84443; 84484; 85025; 85610; 85730; 87040; 87086; 87186; 93005; 96372; 99284; J1815; J1817; J2543; J7030; U0002

== ENCOUNTER 2020-04-30 09:54 | Inpatient (IN) | payer MEDICARE ==
[~2020-04-30] VITALS: Ht 165.1 cm; Wt 95.4 kg
[~2020-04-30 09:54] MED LIST changes: +LEVOFLOXACIN500 MG PO
[2020-04-30 10:52] LABS: BASOPHILS % 0.3 % (0.0-1.0); EOSINOPHILS % 0.3 % (0.0-6.0); HEMATOCRIT 36.1 % (34.2-44.1); HEMOGLOBIN 11.8 g/dL (12.0-16.0); LYMPHOCYTES # (AUTO) 0.6 (1.0-3.2); MEAN CORPUSCULAR HEMOGLOBIN 32.4 pg (28-32); MEAN CORPUSCULAR HGB CONC 32.7 g/dL (31-35); MEAN CORPUSCULAR VOLUME 99.2 fL (81-99); MONOCYTES # (AUTO) 1.3 (0.2-0.8); MONOCYTES % 8.2 % (4.4-11.3); NEUTROPHILS # (AUTO) 13.6 (2.1-6.9); NEUTROPHILS % 86.6 % (38.7-80.0); PLATELET COUNT 70 x10e3/uL (140-360); RED BLOOD COUNT 3.64 x10e6/uL (3.6-5.1); RED CELL DISTRIBUTION WIDTH 14.7 % (11.7-14.4)
[2020-04-30 11:07] LABS: INR 1.56; PROTHROMBIN TIME 19.4 seconds (11.9-14.5)
[2020-04-30 11:08] LABS: PARTIAL THROMBOPLASTIN TIME 37.4 seconds (23.8-35.5)
[2020-04-30 11:14] LABS: ANION GAP 9.1 mmol/L (8-16); CALCIUM 8.4 mg/dL (8.4-10.2); CREATININE, SERUM 1.33 mg/dL (0.57-1.11); POTASSIUM 3.1 mmol/L (3.5-5.1)
[2020-04-30 11:17] LABS: CLARITY,URINE CLEAR (CLEAR); COLOR,URINE YELLOW (YELLOW); LEUKOCYTE ESTERASE ,URINE NEGATIVE (NEGATIVE); NITRITE,URINE NEGATIVE (NEGATIVE); PROTEIN,URINE DIPSTICK 1+ (NEGATIVE)
[2020-04-30 11:18] LABS: BACTERIA,URINE RARE /HPF; EPITHELIAL CELLS,URINE FEW /LPF; KETONES,URINE TRACE (NEGATIVE); RBC,URINE 0-5 /HPF (0-5); URINE UROBILINOGEN 1 mg/dL (0.2 - 1)
[2020-04-30 11:40] LABS: ALBUMIN 2.2 g/dL (3.5-5.0); ALBUMIN/GLOBULIN RATIO 0.5 (0.8-2.0)
[2020-04-30] MEDS ORDERED: MEROPENEM 1GM 100 ML IV ONE (12:00)
[2020-04-30] MEDS ORDERED: ONDANSETRON HCL INJ 2MG/ML 2ML 2 MG/ML VIAL IV PRN ×2 (13:00→15:30)
[2020-04-30] MEDS ORDERED: DEXTROSE 50% SYRINGE 50 ML IV PRN (13:00)
[2020-04-30 14:44] VITALS: BP 149/69
[2020-04-30] MEDS ORDERED: POTASSIUM CHLORIDE 20 MEQ TAB CR PO STA (15:33)
[2020-04-30] MEDS ORDERED: DIATRIZOATE MEGL/DIATRIZOA SOD 30 ML BTL PO ONE (16:02)
[2020-04-30 16:12] VITALS: BP 134/95
[2020-04-30] MEDS: INSULIN LISPRO 100 UNIT/1 ML 3ML VIAL SQ SCH ×2 (16:30→21:00)
[2020-04-30] MEDS ORDERED: INSULIN LISPRO 100 UNIT/1 ML 3ML VIAL SQ SCH (16:30)
[2020-04-30 17:10] VITALS: BP 134/95
[2020-04-30 18:30] LABS: CREATINE KINASE MB 1.6 ng/mL (0-5.0)
[2020-04-30 20:00] VITALS: BP 128/52
[2020-04-30] MEDS ORDERED: BISACODYL 10 MG SUPP PR ONE (21:00)
[2020-04-30] MEDS ORDERED: LEVOFLOXACIN 500 MG TAB PO SCH (21:00)
[2020-04-30] MEDS ORDERED: VANCOMYCIN 1GM/NS 250 ML 250 ML IV ONE (21:00)
[2020-04-30] MEDS ORDERED: LEVOFLOXACIN 500MG/D5W 100ML 100 ML IV SCH (21:30)
[2020-04-30] MEDS ORDERED: ACETAMINOPHEN 650 MG SUPP PR PRN (21:30)
[2020-04-30] MEDS ORDERED: METRONIDAZOLE 500 MG TAB PO SCH (22:00)
[2020-04-30] MEDS ORDERED: SODIUM CHLORIDE 0.9% 250ML 250 ML ONE (22:35)
[2020-04-30] MEDS ORDERED: BISACODYL 5 MG TAB EC PO ONE (22:45)
[2020-04-30] MEDS: METRONIDAZOLE 500MG/NS 100ML 100 ML IV SCH (22:46)
[2020-04-30] MEDS: ACETAMINOPHEN 325 MG TAB PO PRN (23:07)
[2020-04-30 23:20] VITALS: BP 128/52
[2020-05-01] VITALS (8 sets, daily range): BP systolic 110–174; BP diastolic 52–86
[2020-05-01] MEDS: METRONIDAZOLE 500MG/NS 100ML 100 ML IV SCH ×2 (06:19→14:05)
[2020-05-01 06:34] LABS: BASOPHILS % 0.3 % (0.0-1.0); EOSINOPHILS # (AUTO) 0.1 (0.0-0.4); EOSINOPHILS % 0.4 % (0.0-6.0); LYMPHOCYTES # (AUTO) 1.6 (1.0-3.2); LYMPHOCYTES % 11.7 % (18.0-39.1); MEAN CORPUSCULAR HEMOGLOBIN 32.8 pg (28-32); MEAN CORPUSCULAR HGB CONC 32.3 g/dL (31-35); MEAN CORPUSCULAR VOLUME 101.6 fL (81-99); MONOCYTES # (AUTO) 1.3 (0.2-0.8); MONOCYTES % 9.8 % (4.4-11.3); NEUTROPHILS # (AUTO) 10.3 (2.1-6.9); NEUTROPHILS % 77.1 % (38.7-80.0); PLATELET COUNT 68 x10e3/uL (140-360); RED BLOOD COUNT 3.05 x10e6/uL (3.6-5.1); RED CELL DISTRIBUTION WIDTH 14.9 % (11.7-14.4)
[2020-05-01 07:08] LABS: ALBUMIN 1.9 g/dL (3.5-5.0); ALBUMIN/GLOBULIN RATIO 0.5 (0.8-2.0); ANION GAP 9.2 mmol/L (8-16); CALCIUM 8.1 mg/dL (8.4-10.2); CREATININE, SERUM 1.17 mg/dL (0.57-1.11); POTASSIUM 3.2 mmol/L (3.5-5.1)
[2020-05-01] MEDS: INSULIN LISPRO 100 UNIT/1 ML 3ML VIAL SQ SCH ×4 (07:30→20:58)
[2020-05-01] MEDS ORDERED: POTASSIUM CHLORIDE 20 MEQ TAB CR PO ONE (09:28)
[2020-05-01] MEDS ORDERED: ALBUTEROL/IPRATROPIUM 3 ML NEB NEB ONE (14:15)
[2020-05-01] MEDS: SPIRONOLACTONE 25 MG TAB PO SCH (14:28)
[2020-05-01] MEDS: FUROSEMIDE 20 MG TAB PO SCH (14:28)
[2020-05-01] MEDS: ACETAMINOPHEN 325 MG TAB PO PRN (19:57)
[2020-05-01] MEDS ORDERED: CEFTRIAXONE SOD 2 GM/NS 100 ML 100 ML IV SCH (21:00)
[2020-05-01] MEDS: HEPARIN SOD (PORCINE) 5,000 UNIT/ML VIAL SC SCH (21:23)
[2020-05-01] MEDS: PROPRANOLOL HCL 40 MG TAB PO SCH (21:30)
[2020-05-01] MEDS ORDERED: SODIUM CHLORIDE 0.9% 100 ML ONE (22:58)
[2020-05-02] VITALS (8 sets, daily range): BP systolic 110–153; BP diastolic 55–91
[2020-05-02 06:23] LABS: BASOPHILS % 0.3 % (0.0-1.0); EOSINOPHILS # (AUTO) 0.4 (0.0-0.4); EOSINOPHILS % 3.3 % (0.0-6.0); HEMATOCRIT 32.6 % (34.2-44.1); HEMOGLOBIN 10.5 g/dL (12.0-16.0); LYMPHOCYTES # (AUTO) 2.5 (1.0-3.2); LYMPHOCYTES % 21.9 % (18.0-39.1); MEAN CORPUSCULAR HEMOGLOBIN 32.9 pg (28-32); MEAN CORPUSCULAR HGB CONC 32.2 g/dL (31-35); MEAN CORPUSCULAR VOLUME 102.2 fL (81-99); MONOCYTES # (AUTO) 1.3 (0.2-0.8); NEUTROPHILS # (AUTO) 7.3 (2.1-6.9); NEUTROPHILS % 62.9 % (38.7-80.0); PLATELET COUNT 66 x10e3/uL (140-360); RED BLOOD COUNT 3.19 x10e6/uL (3.6-5.1); RED CELL DISTRIBUTION WIDTH 14.7 % (11.7-14.4)
[2020-05-02 06:45] LABS: ANION GAP 8.7 mmol/L (8-16); CALCIUM 8.3 mg/dL (8.4-10.2); CREATININE, SERUM 1.28 mg/dL (0.57-1.11); MAGNESIUM 1.7 MG/DL (1.3-2.1); POTASSIUM 3.7 mmol/L (3.5-5.1)
[2020-05-02] MEDS: INSULIN LISPRO 100 UNIT/1 ML 3ML VIAL SQ SCH ×4 (07:30→21:45)
[2020-05-02] MEDS: PROPRANOLOL HCL 40 MG TAB PO SCH ×2 (08:38→21:45)
[2020-05-02] MEDS: SPIRONOLACTONE 25 MG TAB PO SCH (08:38)
[2020-05-02] MEDS: FUROSEMIDE 20 MG TAB PO SCH (08:38)
[2020-05-02] MEDS: HEPARIN SOD (PORCINE) 5,000 UNIT/ML VIAL SC SCH ×2 (08:40→21:45)
[2020-05-02] MEDS: AMPICILLIN SOD/SULBACTAM 3GM 100 ML IV SCH ×2 (12:18→17:05)
[2020-05-03] VITALS (8 sets, daily range): BP systolic 120–142; BP diastolic 54–88
[2020-05-03] MEDS: AMPICILLIN SOD/SULBACTAM 3GM 100 ML IV SCH ×4 (00:40→18:18)
[2020-05-03 06:40] LABS: BASOPHILS # (AUTO) 0.1 (0.0-0.1); BASOPHILS % 0.7 % (0.0-1.0); EOSINOPHILS # (AUTO) 0.6 (0.0-0.4); HEMATOCRIT 35.5 % (34.2-44.1); HEMOGLOBIN 11.2 g/dL (12.0-16.0); MEAN CORPUSCULAR HEMOGLOBIN 31.7 pg (28-32); MEAN CORPUSCULAR HGB CONC 31.5 g/dL (31-35); MEAN CORPUSCULAR VOLUME 100.6 fL (81-99); MONOCYTES # (AUTO) 0.9 (0.2-0.8); MONOCYTES % 11.3 % (4.4-11.3); NEUTROPHILS # (AUTO) 4.4 (2.1-6.9); NEUTROPHILS % 54.4 % (38.7-80.0); PLATELET COUNT 87 x10e3/uL (140-360); RED BLOOD COUNT 3.53 x10e6/uL (3.6-5.1); RED CELL DISTRIBUTION WIDTH 14.6 % (11.7-14.4)
[2020-05-03 06:58] LABS: INR 1.61; PROTHROMBIN TIME 19.9 seconds (11.9-14.5)
[2020-05-03 06:59] LABS: PARTIAL THROMBOPLASTIN TIME 49.6 seconds (23.8-35.5)
[2020-05-03 07:05] LABS: ALBUMIN 2.1 g/dL (3.5-5.0); ALBUMIN/GLOBULIN RATIO 0.5 (0.8-2.0); ANION GAP 7.7 mmol/L (8-16); CALCIUM 8.1 mg/dL (8.4-10.2); CREATININE, SERUM 1.23 mg/dL (0.57-1.11); POTASSIUM 3.7 mmol/L (3.5-5.1)
[2020-05-03 07:38] LABS: THYROID STIMULATING HORMONE 10.399 uIU/mL (0.350-4.940)
[2020-05-03] MEDS: PROPRANOLOL HCL 40 MG TAB PO SCH ×2 (08:16→21:00)
[2020-05-03] MEDS: SPIRONOLACTONE 25 MG TAB PO SCH (08:16)
[2020-05-03] MEDS: INSULIN LISPRO 100 UNIT/1 ML 3ML VIAL SQ SCH ×4 (08:16→21:00)
[2020-05-03] MEDS: FUROSEMIDE 20 MG TAB PO SCH (08:16)
[2020-05-03] MEDS: HEPARIN SOD (PORCINE) 5,000 UNIT/ML VIAL SC SCH ×2 (08:22→21:00)
[2020-05-03] MEDS ORDERED: RIFAXIMIN 200 MG TAB PO SCH (17:00)
[2020-05-03] MEDS: RIFAXIMIN 550 MG TABLET PO SCH (17:20)
[2020-05-03] MEDS: LACTULOSE SYRUP 20 GM/30 ML UDC PO SCH (17:20)
[2020-05-04] VITALS (8 sets, daily range): BP systolic 118–149; BP diastolic 60–78
[2020-05-04] MEDS ORDERED: LEVOTHYROXINE SODIUM 25 MCG TABLET PO SCH ×2 (06:00)
[2020-05-04] MEDS: LEVOTHYROXINE SODIUM 50 MCG TAB PO SCH (06:00)
[2020-05-04] MEDS: AMPICILLIN SOD/SULBACTAM 3GM 100 ML IV SCH ×3 (06:00→12:28)
[2020-05-04 06:45] LABS: BASOPHILS % 0.6 % (0.0-1.0); EOSINOPHILS # (AUTO) 0.6 (0.0-0.4); EOSINOPHILS % 8.8 % (0.0-6.0); HEMATOCRIT 34.2 % (34.2-44.1); HEMOGLOBIN 10.8 g/dL (12.0-16.0); LYMPHOCYTES # (AUTO) 1.9 (1.0-3.2); MEAN CORPUSCULAR HEMOGLOBIN 31.8 pg (28-32); MEAN CORPUSCULAR HGB CONC 31.6 g/dL (31-35); MEAN CORPUSCULAR VOLUME 100.6 fL (81-99); MONOCYTES # (AUTO) 0.8 (0.2-0.8); MONOCYTES % 11.8 % (4.4-11.3); NEUTROPHILS # (AUTO) 3.1 (2.1-6.9); PLATELET COUNT 87 x10e3/uL (140-360); RED CELL DISTRIBUTION WIDTH 14.5 % (11.7-14.4)
[2020-05-04 07:08] LABS: ANION GAP 7.8 mmol/L (8-16); CALCIUM 8.2 mg/dL (8.4-10.2); CREATININE, SERUM 1.05 mg/dL (0.57-1.11); POTASSIUM 3.8 mmol/L (3.5-5.1)
[2020-05-04] MEDS: PROPRANOLOL HCL 40 MG TAB PO SCH ×2 (09:00→21:00)
[2020-05-04] MEDS: SPIRONOLACTONE 25 MG TAB PO SCH (09:32)
[2020-05-04] MEDS: LACTULOSE SYRUP 20 GM/30 ML UDC PO SCH ×2 (09:33→16:56)
[2020-05-04] MEDS: RIFAXIMIN 550 MG TABLET PO SCH ×2 (09:33→16:57)
[2020-05-04] MEDS: FUROSEMIDE 40 MG TAB PO SCH (09:33)
[2020-05-04] MEDS: HEPARIN SOD (PORCINE) 5,000 UNIT/ML VIAL SC SCH ×2 (09:57→21:00)
[2020-05-04] MEDS: INSULIN LISPRO 100 UNIT/1 ML 3ML VIAL SQ SCH ×4 (12:14→21:00)
[2020-05-04] MEDS ORDERED: CEFTRIAXONE SOD 1 GM VIAL IV SCH (15:30)
[2020-05-04] MEDS: CEFTRIAXONE SOD 2 GM/NS 100 ML 100 ML IV SCH (16:57)
[2020-05-05 00:33] VITALS: BP 124/51
[2020-05-05 05:27] VITALS: BP 141/75
[2020-05-05] MEDS: LEVOTHYROXINE SODIUM 50 MCG TAB PO SCH (06:00)
[2020-05-05 08:40] VITALS: BP 170/86
[2020-05-05] MEDS: FUROSEMIDE 40 MG TAB PO SCH (08:43)
[2020-05-05] MEDS: LACTULOSE SYRUP 20 GM/30 ML UDC PO SCH (08:43)
[2020-05-05] MEDS: PROPRANOLOL HCL 40 MG TAB PO SCH (08:43)
[2020-05-05] MEDS: RIFAXIMIN 550 MG TABLET PO SCH (08:44)
[2020-05-05] MEDS: SPIRONOLACTONE 25 MG TAB PO SCH (08:44)
[2020-05-05 09:04] VITALS: BP 170/86
[2020-05-05] MEDS: INSULIN LISPRO 100 UNIT/1 ML 3ML VIAL SQ SCH ×2 (10:15→13:27)
[2020-05-05] MEDS: HEPARIN SOD (PORCINE) 5,000 UNIT/ML VIAL SC SCH (10:16)
[2020-05-05 13:26] VITALS: BP 118/77
[2020-05-05] MEDS ORDERED: ONDANSETRON HCL 4 MG ORAL DISINTEGRATING TAB PO PRN (13:45)
[2020-05-05] MEDS: CEFTRIAXONE SOD 2 GM/NS 100 ML 100 ML IV SCH (15:12)
== END 2020-05-05 16:20 | disposition home or self-care (01) | DRG 871 ==
LOC: ER 10:19 → ERHOLD 13:02 → MED/SURG2 14:50
PROVIDERS: ADMIT Internal Medicine; ATTEND Internal Medicine
PROC: 02HV33Z Insertion of Infusion Device into Superior Vena Cava, Percutaneous Approach (ICD-10-PCS; 2020-05-04)
PROC: 02HV33Z Insertion of Infusion Device into Superior Vena Cava, Percutaneous Approach (ICD-10-PCS; principal; 2020-05-05)
DX: A40.9 Streptococcal sepsis, unspecified (principal); G93.41 Metabolic encephalopathy; A09 Infectious gastroenteritis and colitis, unspecified; D68.9 Coagulation defect, unspecified; I85.10 Secondary esophageal varices without bleeding; Z20.828 Contact with and (suspected) exposure to other viral communicable diseases; K74.60 Unspecified cirrhosis of liver; E03.9 Hypothyroidism, unspecified; B18.2 Chronic viral hepatitis C; D69.59 Other secondary thrombocytopenia; K72.90 Hepatic failure, unspecified without coma; I12.9 Hypertensive chronic kidney disease with stage 1 through stage 4 chronic kidney disease, or unspecified chronic kidney disease; N18.30 Chronic kidney disease, stage 3 unspecified; E11.22 Type 2 diabetes mellitus with diabetic chronic kidney disease; R65.20 Severe sepsis without septic shock; K59.00 Constipation, unspecified; R06.03 Acute respiratory distress; E66.9 Obesity, unspecified; Z68.35 Body mass index [BMI] 35.0-35.9, adult
CPT/HCPCS: 36415; 36569; 70450; 71045; 74176; 76705; 80048; 80053; 81001; 82140; 82550; 82553; 82948; 83735; 83880; 84443; 84484; 85025; 85610; 85730; 87040; 87071; 87086; 87205; 93005; 93306; 94640; 99251; 99284; J0295; J0696; J1644; J1956; J3370; J7050; U0002

== ENCOUNTER 2020-05-09 17:37 | Emergency (ER) | payer MEDICARE ==
[~2020-05-09] VITALS: Ht 165.1 cm; Wt 95.3 kg
== END 2020-05-09 18:45 | disposition home or self-care (01) ==
LOC: ER 18:16
DX: Z45.2 Encounter for adjustment and management of vascular access device (principal); I12.9 Hypertensive chronic kidney disease with stage 1 through stage 4 chronic kidney disease, or unspecified chronic kidney disease; E11.22 Type 2 diabetes mellitus with diabetic chronic kidney disease; N18.9 Chronic kidney disease, unspecified; E03.9 Hypothyroidism, unspecified; K74.60 Unspecified cirrhosis of liver
CPT/HCPCS: 99282

== ENCOUNTER 2020-05-10 16:31 | Emergency (ER) | payer MEDICARE ==
[~2020-05-10] VITALS: Ht 165.1 cm; Wt 95.3 kg
[2020-05-10 18:35] LABS: BASOPHILS % 0.5 % (0.0-1.0); EOSINOPHILS # (AUTO) 0.4 (0.0-0.4); EOSINOPHILS % 7.3 % (0.0-6.0); HEMATOCRIT 31.2 % (34.2-44.1); HEMOGLOBIN 10.1 g/dL (12.0-16.0); LYMPHOCYTES # (AUTO) 1.7 (1.0-3.2); MEAN CORPUSCULAR HEMOGLOBIN 32.2 pg (28-32); MEAN CORPUSCULAR HGB CONC 32.4 g/dL (31-35); MEAN CORPUSCULAR VOLUME 99.4 fL (81-99); MONOCYTES # (AUTO) 0.6 (0.2-0.8); MONOCYTES % 10.9 % (4.4-11.3); NEUTROPHILS # (AUTO) 2.7 (2.1-6.9); NEUTROPHILS % 49.8 % (38.7-80.0); RED BLOOD COUNT 3.14 x10e6/uL (3.6-5.1); RED CELL DISTRIBUTION WIDTH 15.7 % (11.7-14.4)
[2020-05-10 18:36] LABS: PLATELET COUNT 89 x10e3/uL (140-360)
[2020-05-10 18:37] LABS: PROTHROMBIN TIME 23.6 seconds (11.9-14.5)
[2020-05-10 18:38] LABS: PARTIAL THROMBOPLASTIN TIME 47.2 seconds (23.8-35.5)
[2020-05-10 18:45] LABS: ALBUMIN/GLOBULIN RATIO 0.5 (0.8-2.0); ANION GAP 8.5 mmol/L (8-16); CALCIUM 8.8 mg/dL (8.4-10.2); CREATININE, SERUM 1.32 mg/dL (0.57-1.11); POTASSIUM 3.5 mmol/L (3.5-5.1)
[2020-05-10 18:51] LABS: CREATINE KINASE MB 1.7 ng/mL (0-5.0)
== END 2020-05-10 19:45 | disposition home or self-care (01) ==
LOC: ER 17:45
DX: Z45.2 Encounter for adjustment and management of vascular access device (principal); K74.60 Unspecified cirrhosis of liver; E11.65 Type 2 diabetes mellitus with hyperglycemia; I10 Essential (primary) hypertension
CPT/HCPCS: 36415; 80053; 82550; 82553; 84484; 85025; 85610; 85730; 87040; 99283

== ENCOUNTER 2020-05-13 14:37 | Emergency (ER) | payer MEDICARE ==
[~2020-05-13] VITALS: Ht 165.1 cm; Wt 95.3 kg
[2020-05-13 15:15] LABS: BASOPHILS % 0.4 % (0.0-1.0); EOSINOPHILS # (AUTO) 0.4 (0.0-0.4); EOSINOPHILS % 6.6 % (0.0-6.0); HEMATOCRIT 32.1 % (34.2-44.1); HEMOGLOBIN 10.3 g/dL (12.0-16.0); LYMPHOCYTES # (AUTO) 1.5 (1.0-3.2); LYMPHOCYTES % 26.8 % (18.0-39.1); MEAN CORPUSCULAR HEMOGLOBIN 32.1 pg (28-32); MEAN CORPUSCULAR HGB CONC 32.1 g/dL (31-35); MONOCYTES # (AUTO) 0.7 (0.2-0.8); MONOCYTES % 11.9 % (4.4-11.3); NEUTROPHILS % 53.9 % (38.7-80.0); PLATELET COUNT 74 x10e3/uL (140-360); RED BLOOD COUNT 3.21 x10e6/uL (3.6-5.1); RED CELL DISTRIBUTION WIDTH 16.1 % (11.7-14.4)
[2020-05-13 15:26] LABS: INR 1.95; PROTHROMBIN TIME 23.2 seconds (11.9-14.5)
[2020-05-13 15:27] LABS: PARTIAL THROMBOPLASTIN TIME 50.9 seconds (23.8-35.5)
[2020-05-13 15:36] LABS: ALANINE AMINOTRANSFERASE 22 IU/L (0-55); ALBUMIN/GLOBULIN RATIO 0.5 (0.8-2.0); ALKALINE PHOSPHATASE 184 IU/L (40-150); ANION GAP 9.6 mmol/L (8-16); BLOOD UREA NITROGEN 7 mg/dL (7-26); BUN/CREATININE RATIO 8 (6-25); CALCIUM 8.4 mg/dL (8.4-10.2); CARBON DIOXIDE 27 mmol/L (22-29); CHLORIDE 108 mmol/L (98-107); CREATININE, SERUM 0.92 mg/dL (0.57-1.11); EST GLOMERULAR FILTRATION RATE > 60 ML/MIN (60-); GLUCOSE 160 mg/dL (74-118); POTASSIUM 3.6 mmol/L (3.5-5.1); SODIUM 141 mmol/L (136-145)
[2020-05-13 15:50] LABS: PLATELET ESTIMATE SLIGHTLY DECREASED; PLATELET MORPHOLOGY COMMENT NORMAL
== END 2020-05-13 16:13 | disposition home or self-care (01) ==
LOC: ER 15:00
DX: Z45.2 Encounter for adjustment and management of vascular access device (principal); D68.9 Coagulation defect, unspecified; K74.60 Unspecified cirrhosis of liver; I10 Essential (primary) hypertension; E11.9 Type 2 diabetes mellitus without complications; E03.9 Hypothyroidism, unspecified; B19.10 Unspecified viral hepatitis B without hepatic coma
CPT/HCPCS: 36415; 80053; 85025; 85610; 85730; 99283

== ENCOUNTER 2020-05-15 14:35 | Emergency (ER) | payer MEDICARE ==
[~2020-05-15] VITALS: Ht 165.1 cm; Wt 95.3 kg
== END 2020-05-15 16:41 | disposition home or self-care (01) ==
LOC: ER 14:38
DX: Z45.2 Encounter for adjustment and management of vascular access device (principal); I10 Essential (primary) hypertension; E11.9 Type 2 diabetes mellitus without complications; E03.9 Hypothyroidism, unspecified; K74.60 Unspecified cirrhosis of liver; B19.10 Unspecified viral hepatitis B without hepatic coma
CPT/HCPCS: 99282

== ENCOUNTER 2020-07-28 17:33 | Emergency (ER) | payer MEDICARE ==
[~2020-07-28] VITALS: Ht 165.1 cm; Wt 95.3 kg
[2020-07-28 18:40] LABS: ALBUMIN 2.2 g/dL (3.5-5.0); ALBUMIN/GLOBULIN RATIO 0.4 (0.8-2.0); ANION GAP 10.2 mmol/L (8-16); CALCIUM 8.2 mg/dL (8.4-10.2); CREATININE, SERUM 1.01 mg/dL (0.57-1.11); POTASSIUM 4.2 mmol/L (3.5-5.1)
[2020-07-28 18:42] LABS: BASOPHILS % 0.6 % (0.0-1.0); CLARITY,URINE SL CLOUDY (CLEAR); COLOR,URINE STRAW (YELLOW); EOSINOPHILS # (AUTO) 0.5 (0.0-0.4); EOSINOPHILS % 7.9 % (0.0-6.0); HEMATOCRIT 33.4 % (34.2-44.1); HEMOGLOBIN 10.8 g/dL (12.0-16.0); KETONES,URINE NEGATIVE (NEGATIVE); LEUKOCYTE ESTERASE ,URINE NEGATIVE (NEGATIVE); LYMPHOCYTES # (AUTO) 2.2 (1.0-3.2); MEAN CORPUSCULAR HEMOGLOBIN 31.5 pg (28-32); MEAN CORPUSCULAR HGB CONC 32.3 g/dL (31-35); MEAN CORPUSCULAR VOLUME 97.4 fL (81-99); MONOCYTES # (AUTO) 0.8 (0.2-0.8); MONOCYTES % 13.5 % (4.4-11.3); NEUTROPHILS # (AUTO) 2.6 (2.1-6.9); NEUTROPHILS % 41.5 % (38.7-80.0); NITRITE,URINE NEGATIVE (NEGATIVE); PLATELET COUNT 84 x10e3/uL (140-360); PROTEIN,URINE DIPSTICK 1+ (NEGATIVE); RED BLOOD COUNT 3.43 x10e6/uL (3.6-5.1); RED CELL DISTRIBUTION WIDTH 16.6 % (11.7-14.4); URINE UROBILINOGEN 1 mg/dL (0.2 - 1)
[2020-07-28 18:48] LABS: CREATINE KINASE MB 1.8 ng/mL (0-5.0)
[2020-07-28 19:00] LABS: BACTERIA,URINE FEW /HPF; RBC,URINE 0-5 /HPF (0-5)
[2020-07-28 19:01] LABS: CALCIUM OXALATE CRYSTALS,UR RARE (FEW); EPITHELIAL CELLS,URINE MODERATE /LPF
[2020-07-28] MEDS ORDERED: SODIUM CHLORIDE 0.9% 1000ML 1,000 ML IV ONE (19:45)
[2020-07-28] MEDS ORDERED: SODIUM CHLORIDE 0.9% 50ML 0 ML ONE (20:30)
[2020-07-28] MEDS ORDERED: IOPAMIDOL 370 MG/ML 200 ML INFUS..BTL INJ ONE ×2 (20:30→20:32)
[2020-07-28] MEDS ORDERED: SODIUM CHLORIDE 0.9% 50ML 50 ML ONE (20:32)
[2020-07-28] MEDS ORDERED: FUROSEMIDE INJ 10 MG/ML 4 ML VIAL IV ONE (20:45)
[2020-07-28 23:00] VITALS: BP 160/81
== END 2020-07-28 23:04 | disposition home or self-care (01) ==
LOC: ER 17:58
DX: R06.02 Shortness of breath (principal); K74.60 Unspecified cirrhosis of liver; R60.1 Generalized edema; I10 Essential (primary) hypertension; E11.65 Type 2 diabetes mellitus with hyperglycemia; N18.9 Chronic kidney disease, unspecified; E03.9 Hypothyroidism, unspecified
CPT/HCPCS: 36415; 71045; 74177; 80053; 81001; 82550; 82553; 83605; 83690; 83880; 84484; 85025; 87040; 99284; J1940; J7030; Q9967

== ENCOUNTER 2020-09-13 12:05 | Inpatient (IN) | payer MEDICARE ==
[~2020-09-13] VITALS: Ht 157.5 cm; Wt 92.1 kg
[2020-09-13] MEDS ORDERED: METHYLPREDNISOLONE SOD SUCC 125 MG/2ML VIAL IV STA (12:20)
[2020-09-13] MEDS ORDERED: ALBUTEROL/IPRATROPIUM 3 ML NEB NEB ONE (12:30)
[2020-09-13 12:50] LABS: BASOPHILS # (AUTO) 0.1 (0.0-0.1); BASOPHILS % 0.9 % (0.0-1.0); EOSINOPHILS # (AUTO) 0.5 (0.0-0.4); EOSINOPHILS % 9.3 % (0.0-6.0); HEMATOCRIT 35.7 % (34.2-44.1); HEMOGLOBIN 11.7 g/dL (12.0-16.0); LYMPHOCYTES # (AUTO) 1.4 (1.0-3.2); LYMPHOCYTES % 25.9 % (18.0-39.1); MEAN CORPUSCULAR HEMOGLOBIN 32.1 pg (28-32); MEAN CORPUSCULAR HGB CONC 32.8 g/dL (31-35); MEAN CORPUSCULAR VOLUME 97.8 fL (81-99); MONOCYTES # (AUTO) 0.7 (0.2-0.8); MONOCYTES % 13.1 % (4.4-11.3); NEUTROPHILS # (AUTO) 2.8 (2.1-6.9); NEUTROPHILS % 50.3 % (38.7-80.0); PLATELET COUNT 84 x10e3/uL (140-360); RED BLOOD COUNT 3.65 x10e6/uL (3.6-5.1); RED CELL DISTRIBUTION WIDTH 15.6 % (11.7-14.4)
[2020-09-13 13:06] LABS: ALBUMIN 2.1 g/dL (3.5-5.0); ALBUMIN/GLOBULIN RATIO 0.4 (0.8-2.0); ANION GAP 7.6 mmol/L (8-16); CALCIUM 7.8 mg/dL (8.4-10.2); CREATININE, SERUM 1.01 mg/dL (0.57-1.11); MAGNESIUM 1.6 MG/DL (1.3-2.1); POTASSIUM 3.6 mmol/L (3.5-5.1)
[2020-09-13 13:10] LABS: INR 1.56; PROTHROMBIN TIME 19.4 seconds (11.9-14.5)
[2020-09-13 13:12] LABS: CREATINE KINASE MB 1.3 ng/mL (0-5.0)
[2020-09-13] MEDS ORDERED: FUROSEMIDE INJ 10 MG/ML 4 ML VIAL IV ONE (14:00)
[2020-09-13 20:00] VITALS: BP 138/59
[2020-09-13 20:23] LABS: CREATINE KINASE MB 1.5 ng/mL (0-5.0)
[2020-09-13 20:27] LABS: CLARITY,URINE CLEAR (CLEAR); COLOR,URINE YELLOW (YELLOW); KETONES,URINE NEGATIVE (NEGATIVE); LEUKOCYTE ESTERASE ,URINE NEGATIVE (NEGATIVE); NITRITE,URINE NEGATIVE (NEGATIVE); PROTEIN,URINE DIPSTICK NEGATIVE (NEGATIVE); URINE UROBILINOGEN 0.2 mg/dL (0.2 - 1)
[2020-09-13 20:32] LABS: BACTERIA,URINE RARE /HPF; EPITHELIAL CELLS,URINE FEW /LPF; WBC,URINE (MAN) 0-5 /HPF (0-5)
[2020-09-13] MEDS ORDERED: DEXTROSE 50% SYRINGE 50 ML IV PRN (21:15)
[2020-09-13] MEDS ORDERED: INSULIN GLARGINE 100 UNITS/ML VIAL SQ SCH (21:30)
[2020-09-13] MEDS ORDERED: ALBUTEROL SULFATE HFA 8GM INHALATION AEROSOL INH PRN (21:30)
[2020-09-13] MEDS ORDERED: HYDRALAZINE HCL 20 MG/ML VIAL IV PRN (21:45)
[2020-09-13] MEDS ORDERED: ACETAMINOPHEN 325 MG TAB PO PRN (21:45)
[2020-09-13] MEDS ORDERED: ONDANSETRON HCL INJ 2MG/ML 2ML 2 MG/ML VIAL IV PRN (21:45)
[2020-09-13] MEDS: BENZONATATE 100 MG CAP PO PRN (22:00)
[2020-09-13] MEDS: RIFAXIMIN 550 MG TABLET PO SCH (22:10)
[2020-09-13] MEDS: INSULIN LISPRO 100 UNIT/1 ML 3ML VIAL SQ SCH (22:10)
[2020-09-13] MEDS: LACTULOSE SYRUP 20 GM/30 ML UDC PO SCH (22:10)
[2020-09-13] MEDS: PROPRANOLOL HCL 10 MG TAB PO SCH (22:10)
[2020-09-13 22:24] VITALS: BP 138/59
[2020-09-13 22:32] VITALS: BP 138/59
[2020-09-14] MEDS: BENZONATATE 100 MG CAP PO PRN (03:23)
[2020-09-14 05:44] LABS: BASOPHILS % 0.1 % (0.0-1.0); HEMATOCRIT 33.6 % (34.2-44.1); HEMOGLOBIN 11.1 g/dL (12.0-16.0); LYMPHOCYTES # (AUTO) 0.9 (1.0-3.2); MEAN CORPUSCULAR HEMOGLOBIN 32.2 pg (28-32); MEAN CORPUSCULAR VOLUME 97.4 fL (81-99); MONOCYTES # (AUTO) 0.3 (0.2-0.8); MONOCYTES % 4.3 % (4.4-11.3); NEUTROPHILS # (AUTO) 5.6 (2.1-6.9); NEUTROPHILS % 82.2 % (38.7-80.0); PLATELET COUNT 83 x10e3/uL (140-360); RED BLOOD COUNT 3.45 x10e6/uL (3.6-5.1); RED CELL DISTRIBUTION WIDTH 15.2 % (11.7-14.4)
[2020-09-14 06:20] LABS: ALBUMIN 1.9 g/dL (3.5-5.0); ALBUMIN/GLOBULIN RATIO 0.4 (0.8-2.0); ANION GAP 11.5 mmol/L (8-16); CALCIUM 7.9 mg/dL (8.4-10.2); CHOL/HDL RATIO 5.4 (3.0-3.6); CREATININE, SERUM 1.28 mg/dL (0.57-1.11); POTASSIUM 3.5 mmol/L (3.5-5.1)
[2020-09-14 07:18] LABS: CREATINE KINASE MB 1.5 ng/mL (0-5.0)
[2020-09-14 08:00] VITALS: BP 138/65
[2020-09-14] MEDS: INSULIN LISPRO 100 UNIT/1 ML 3ML VIAL SQ SCH ×3 (08:21→16:30)
[2020-09-14] MEDS ORDERED: FUROSEMIDE INJ 10 MG/ML 4 ML VIAL IV SCH (09:00)
[2020-09-14] MEDS ORDERED: SPIRONOLACTONE 25 MG TAB PO SCH (09:00)
[2020-09-14] MEDS ORDERED: PANTOPRAZOLE SOD 40 MG TABEC PO SCH (09:00)
[2020-09-14] MEDS ORDERED: LEVOTHYROXINE SODIUM 125 MCG TAB PO SCH (09:00)
[2020-09-14] MEDS: LACTULOSE SYRUP 20 GM/30 ML UDC PO SCH (09:14)
[2020-09-14] MEDS: RIFAXIMIN 550 MG TABLET PO SCH (09:15)
[2020-09-14] MEDS: PROPRANOLOL HCL 10 MG TAB PO SCH (09:15)
[2020-09-14 09:25] VITALS: BP 138/65
[2020-09-14 11:48] VITALS: BP 115/52
[2020-09-14 15:45] VITALS: BP 128/73
[2020-09-14 15:50] LABS: CREATINE KINASE MB 2.9 ng/mL (0-5.0)
[2020-09-14] MEDS ORDERED: TESSALON PERLE100 MG PO (15:52)
[2020-09-14] MEDS ORDERED: PROVENTIL HFA6.7 GM INH (15:52)
[2020-09-14] MEDS ORDERED: LASIX40 MG PO (15:53)
== END 2020-09-14 18:27 | disposition home or self-care (01) | DRG 203 ==
LOC: ER 12:48 → ERHOLD 16:34 → MED/SURG 21:50
PROVIDERS: ADMIT Internal Medicine; ATTEND Internal Medicine
DX: J45.901 Unspecified asthma with (acute) exacerbation (principal); K74.60 Unspecified cirrhosis of liver; B18.2 Chronic viral hepatitis C; E03.9 Hypothyroidism, unspecified; D69.59 Other secondary thrombocytopenia; E11.9 Type 2 diabetes mellitus without complications; Z20.822 Contact with and (suspected) exposure to COVID-19
CPT/HCPCS: 36415; 71045; 80053; 80061; 81001; 82550; 82553; 82948; 83735; 83880; 84484; 85025; 85610; 85730; 87040; 87086; 93005; 93306; 99284; J1815; J1940; J2930; U0002

== ENCOUNTER 2020-10-22 14:38 | Emergency (ER) | payer MEDICARE ==
[~2020-10-22] VITALS: Ht 157.5 cm; Wt 92.1 kg
== END 2020-10-22 17:00 | disposition home or self-care (01) ==
LOC: ER 16:58
DX: L03.114 Cellulitis of left upper limb (principal); L03.115 Cellulitis of right lower limb; S80.821A Blister (nonthermal), right lower leg, initial encounter; I12.9 Hypertensive chronic kidney disease with stage 1 through stage 4 chronic kidney disease, or unspecified chronic kidney disease; E11.22 Type 2 diabetes mellitus with diabetic chronic kidney disease; N18.9 Chronic kidney disease, unspecified; I50.9 Heart failure, unspecified; Z86.73 Personal history of transient ischemic attack (TIA), and cerebral infarction without residual deficits
CPT/HCPCS: 99282